=== PATIENT | male | born 1950 | race Caucasian/White ===

== ENCOUNTER 2016-05-15 01:32 | Emergency (ER) | payer MEDICARE, OTHER ==
[~2016-05-15 01:32] MED LIST: ALLO100T PO; AMLO10TA2 PO; ASPI81TA85 PO; ATOR1TAB18 PO; ATRO1SOL13; AZEL0.1S3; BACI50OI TOP; BENA25CA2 PO; BUDE0.5S6 INH; BUPR150T3 PO; BUPR15TASR PO; CENTTAB PO; CETI10TA PO; FENO1CAP2 PO; FLOM5CAP PO; FOLI1TAB2 PO; FURO20TA2 PO; FURO40TA2 PO; FURO40VL IV; INSUDET SC; INSUH10VL SC; INSUHUMDS SC; INSULADS SC; INSULANT SC; IPRA1SOL47 NEB; IPRASOL4 INH; LASI40TA PO; LEVO75TA4 PO; LOSA100T36 PO; LOVE1INJ SC; MAGN400T2 PO; METF1000 PO; METO10TA2 PO; METO25TAB PO; METO50TA2 PO; NITR4TASL SL; OMEG100011 PO; ONDA4TAB6 PO; PANT40TA2 PO; PERF20NE2 INH; PULM0.5S INH; SENN1TAB2 PO; SYMB16INH INH; VITA100066 PO; ZOFR4TAB3 PO
[2016-05-15] MEDS ORDERED: CIPROFLOXACIN 500 MG TAB As Ordered ONE (02:57)
--- NOTE | 2016-05-15 03:46 | EDDOCDS ---
Nurse's Notes [facility] Name: Talha Major Age: 66 yrs Sex: Male : 1950 Arrival Date: 05/15/2016 Time: 01:32 Bed 12 Private MD: Diagnosis: Urinary tract infection, site not specified;Cystitis, unspecified Presentation: 05/15 01:35 Presenting complaint: Child states: Patient hasn't put anything out in catheter in over jmb 6 hours with feeling of needing to urinate. Peg tube also looks infected. Adult Sepsis Screening: The patient does not have new or worsening altered mentation. Patient's respiratory rate is less than 22. Systolic blood pressure is greater than 100. Patient has a qSOFA score of 0- Negative Sepsis Screen. Suicide/Homicide risk assessment- the patient denies having any suicidal and/or homicidal ideations and does not present with any other emotional, behavioral or mental health complaints. Status: Patient is not a sales and service representative or dependent. Transition of care: patient was not received from another setting of care. 01:35 Acuity: ZOILA Level 3 b 01:35 Method Of Arrival: Wheelchair [facility] Triage Assessment: 01:37 General: Appears in no apparent distress, Behavior is appropriate for age, cooperative. jmb Pain: Denies pain. Neurological: Level of Consciousness is awake, alert, obeys commands, Oriented to person, place, time. Respiratory: Airway is patent Respiratory effort is even, Respiratory pattern is regular. Derm: Skin is pink, warm & dry. Musculoskeletal: Range of motion intact in all extremities. Historical: - Allergies: Niacinflush, itching, burning; - Home Meds: 1. allopurinol 100 mg Oral tab 1 tab 2 times per day 2. amlodipine 10 mg Oral tab 1 tab once daily 3. aspirin 81 mg Oral TbEC 1 tab once daily 4. atorvastatin 80 mg oral tab 1 tab once daily 5. Benadryl 25 mg Oral cap as needed 6. bupropion HCl 150 mg Oral TbER 1 tab once daily 7. cetirizine 10 mg oral tab 1 tab once daily 8. Dulcolax (bisacodyl) 5 mg Oral TbEC 1 tab as needed 9. cholecalciferol 1000 units twice a day 10. fenofibrate 135mg oral tab once daily 11. folic acid 1 mg Oral tab 1 tab once daily 12. furosemide 40 mg Oral tab 20 mg once daily 13. Lantus 100 unit/mL Sub-Q soln 20 unit twice a day morning and night 14. levothyroxine 75 mcg Oral tab once daily 15. magnesium oxide 400 mg Oral tab 400 mg daily 16. metformin 1,000 mg Oral tab 1 tab 2 times per day 17. metoclopramide HCl 10 mg Oral tab 1 tab 4 times per day 18. metoprolol tartrate 25 mg Oral tab 1 tab 2 times per day 19. nitroglycerin 0.4 mg SL subl 1 tab every 5 minutes spray 20. Novolog 100 unit/mL Sub-Q soln sliding scale before meals 21. omega-3 fatty acids 1,000 mg oral cap daily 22. ondansetron HCl 4 mg Oral tab as needed 23. tamsulosin 0.4 mg oral cp24 1 cap once daily - PMHx: ALS; CHF; diabetes - IDDM; Hypercholesterolemia; hyperlipidemia; Hypertension; Hypothyroidism; neuropathy; - PSHx: Cardiac stents; CABG; Intestinal obstruction; Appendectomy; 3-cysts removed; Hernia repair; PEG Tube Insertion; - Social history: Smoking status: Patient states former smoker of tobacco. No barriers to communication noted, The patient speaks fluent [place], Speaks appropriately for age. - Family history: Not pertinent. - : The pt / caregiver states he / she is not on anticoagulants. Home medication list is obtained from the patient. - Exposure Risk Screening:: None identified. Screenin:02 Screening information is obtained from the patient. Fall risk: No risks identified. kas2 Assistance ADL's: requires no assistance with activities of daily living. Abuse/DV Screen: The patient / caregiver reports he/she is: not in a situation that causes fear, pain or injury. Nutritional screening: No deficits noted. Advance Directives: Currently, there is no health care proxy. There is no active DNR order. There is no living will. There is no Power of Record Searcher. home support is adequate. Assessment: 01:55 General: Appears in no apparent distress, comfortable, well nourished, well groomed, kas2 Behavior is appropriate for age, cooperative. Pain: Denies pain. Neurological: Level of Consciousness is awake, alert, Oriented to person, place, time. Cardiovascular: Capillary refill < 3 seconds Heart tones S1 S2 present. Respiratory: Airway is patent Respiratory effort is even, unlabored, Respiratory pattern is regular, symmetrical, Breath sounds are clear bilaterally. GI: Abdomen is flat, non- distended Bowel sounds present X 4 quads. : Carter in place Reports urgency. Derm: Skin is intact, is healthy with good turgor, Skin is dry, Skin is pink, warm & dry. Skin temperature is warm. 02:18 General: Crater catheter flushed with 100ml of NS. Good return of clear yellow urine. kas2 Patient tolerated procedure well. . 03:27 General: Patient sitting in bed with daughter at bedside. No apparent distress noted. kas2 Appears comfortable. Denies pain or discomfort at this time. Call ardon within reach. Will continue to monitor.. Vital Signs: 01:37 Weight 66.22 kg (R); Height 5 ft. 8 in. (172.72 cm) (R); Pain 0/10; b 02:00 BP 129 / 73 (auto/); kas2 02:01 Pulse Ox 96% ; [facility] 02:01 BP 132 / 75; Pulse 82; Resp 18; Temp 97.6(O); Pulse Ox 99% on BiPAP; Pain 0/10; kas2 01:37 Body Mass Index 22.20 (66.22 kg, 172.72 cm) [facility] Vitals: 01:37 Log In Time: May 15, 2016 at 01:33. [facility] ED Course: 01:33 Patient visited by Gunjan Zapata Reg. hs2 01:33 Patient moved to Waiting hs2 01:36 Triage Initiated [facility] 01:39 Carlito Chaudhry RN is Primary Nurse. b 01:39 Viridiana Grier RN is Primary Nurse. [facility] 01:39 Patient moved to 12 [facility] 01:43 Terrell Menchaca DO is Attending Physician. cs11 01:43 Patient visited by Terrell Menchaca DO. cs11 02:03 Patient visited by Viridiana Grier RN. kas2 02:18 Patient visited by Viridiana Grier RN. kas2 02:18 Urine Culture Sent. kas2 02:18 Urinalysis Sent. kas2 02:19 Urine collected. Specimen obtained from Carter. kas2 02:20 Patient visited by Viridiana Grier RN. kas2 02:25 Primary Nurse role handed off by Carlito Chaudhry RN [facility] [place] 02:54 Patient visited by Viridiana Grier RN. kas2 03:28 Patient visited by Viridiana Grier RN. kas2 03:45 The patient / caregiver is instructed regarding the plan of care and ED course. kas2 03:45 No IV's were initiated during this patient's visit. No procedures done that require [facility] assistance. Administered Medications: 02:59 Drug: Ciprofloxacin 500 mg [ciprofloxacin 500 mg tablet (1 tabs)] Route: PO; kas2 Order Results: Lab Order: Urinalysis; SPEC'M 05/15/16 02:17 Test: APPEARANCE, URINE; Value: CLOUDY; Range: CLEAR; Abnormal: Above high normal; Status: F Test: COLOR, URINE; Value: YELLOW; Range: YELLOW; Status: F Test: PH,URINE; Value: 6.0; Range: 5.0-9.0; Units: UNITS; Status: F Test: SPECIFIC GRAVITY URINE AUTO; Value: 1.020; Range: 1.002-1.035; Status: F Test: PROTEIN, URINE AUTO; Value: 2+; Range: NEGATIVE; Abnormal: Above high normal; Units: mg/dL; Status: F Test: GLUCOSE, URINE (UA) AUTO; Value: NEGATIVE; Range: NEGATIVE; Units: mg/dL; Status: F Test: KETONE, URINE AUTO; Value: NEGATIVE; Range: NEGATIVE; Units: mg/dL; Status: F Test: UROBILINOGEN, URINE AUTO; Value: 0.2; Range: 0.0-2.0; Units: mg/dL; Status: F Test: BILIRUBIN, URINE AUTO; Value: NEGATIVE; Range: NEGATIVE; Status: F Test: NITRITE, URINE AUTO; Value: POSITIVE; Range: NEGATIVE; Status: F Test: LEUKOCYTE ESTERASE, URINE AUTO; Value: 3+; Range: NEGATIVE; Abnormal: Above high normal; Status: F Test: BLOOD, URINE BLOOD; Value: 3+; Range: NEGATIVE; Abnormal: Above high normal; Status: F Test: WBC, URINE AUTO; Value: 131; Range: 0-3; Abnormal: Above high normal; Units: /HPF; Status: F Test: RBC, URINE AUTO; Value: TNTC; Range: 0-3; Abnormal: Above high normal; Units: /HPF; Status: F Test: BACTERIA, URINE AUTO; Value: 1+; Range: NEGATIVE; Abnormal: Above high normal; Status: F Test: SQUAMOUS EPITHELIAL CELL UR AU; Value: 0; Range: 0-6; Units: /HPF; Status: F Test: MUCUS, URINE; Value: SMALL; Range: NEGATIVE; Status: F Test: HYALINE CAST, URINE AUTO; Value: 0; Range: 0-1; Units: /LPF; Status: F Test: AMORPHOUS SEDIMENT; Value: SMALL; Range: NEGATIVE; Abnormal: Above high normal; Status: F Outcome: 03:28 Discharge ordered by Provider. 11 03:44 Discharge Assessment: patient administered narcotics - no. The following High Risk [facility] Discharge criteria are identified: None. Discharged to home via wheelchair, with family. Condition: good Condition: stable Condition: improved. No special radiology studies were completed. Property :Personal belongings accompany Pt. 03:45 Patient left the ED. [facility] Signatures: Alecia Morgan RN RN [id number] Terrell Menchaca DO DO cs11 Emilio Lisa RN RN jmb Stanton, Hillary, Reg Reg hs2 Viridiana Grier RN RN kas2 MTDD
--- NOTE | 2016-05-15 03:46 | EDDOCDS ---
Physician Documentation [facility] Name: Talha Major Age: 66 yrs Sex: Male : 1950 Arrival Date: 05/15/2016 Time: 01:32 Bed 12 Private MD: Disposition: 05/15/16 03:28 Discharged to Home/Self Care. Impression: Urinary tract infection, site not specified, Cystitis, unspecified. - Condition is Stable. - Prescriptions for Cipro 500 mg Oral Tablet - take 1 tablet by ORAL route every 12 hours; 10 tablet. - Medication Reconciliation, Local Pharmacy Hours form. - Follow up: Private Physician; When: 1 - 2 days; Reason: Recheck today's complaints, Continuance of care. - Problem is new. - Symptoms have improved. Historical: - Allergies: Niacinflush, itching, burning; - Home Meds: 1. allopurinol 100 mg Oral tab 1 tab 2 times per day 2. amlodipine 10 mg Oral tab 1 tab once daily 3. aspirin 81 mg Oral TbEC 1 tab once daily 4. atorvastatin 80 mg oral tab 1 tab once daily 5. Benadryl 25 mg Oral cap as needed 6. bupropion HCl 150 mg Oral TbER 1 tab once daily 7. cetirizine 10 mg oral tab 1 tab once daily 8. Dulcolax (bisacodyl) 5 mg Oral TbEC 1 tab as needed 9. cholecalciferol 1000 units twice a day 10. fenofibrate 135mg oral tab once daily 11. folic acid 1 mg Oral tab 1 tab once daily 12. furosemide 40 mg Oral tab 20 mg once daily 13. Lantus 100 unit/mL Sub-Q soln 20 unit twice a day morning and night 14. levothyroxine 75 mcg Oral tab once daily 15. magnesium oxide 400 mg Oral tab 400 mg daily 16. metformin 1,000 mg Oral tab 1 tab 2 times per day 17. metoclopramide HCl 10 mg Oral tab 1 tab 4 times per day 18. metoprolol tartrate 25 mg Oral tab 1 tab 2 times per day 19. nitroglycerin 0.4 mg SL subl 1 tab every 5 minutes spray 20. Novolog 100 unit/mL Sub-Q soln sliding scale before meals 21. omega-3 fatty acids 1,000 mg oral cap daily 22. ondansetron HCl 4 mg Oral tab as needed 23. tamsulosin 0.4 mg oral cp24 1 cap once daily - PMHx: ALS; CHF; diabetes - IDDM; Hypercholesterolemia; hyperlipidemia; Hypertension; Hypothyroidism; neuropathy; - PSHx: Cardiac stents; CABG; Intestinal obstruction; Appendectomy; 3-cysts removed; Hernia repair; PEG Tube Insertion; - Social history: Smoking status: Patient states former smoker of tobacco. No barriers to communication noted, The patient speaks fluent [place], Speaks appropriately for age. - Family history: Not pertinent. - : The pt / caregiver states he / she is not on anticoagulants. Home medication list is obtained from the patient. - Exposure Risk Screening:: None identified. Vital Signs: 05/15 01:37 Weight 66.22 kg / 145.99 lbs (R); Height 5 ft. 8 in. (172.72 cm) (R); Pain 0/10; b 02:00 BP 129 / 73 (auto/); kas2 02:01 Pulse Ox 96% ; kas2 02:01 BP 132 / 75; Pulse 82; Resp 18; Temp 97.6(O); Pulse Ox 99% on BiPAP; Pain 0/10; kas2 01:37 Body Mass Index 22.20 (66.22 kg, 172.72 cm) [facility] MDM: 01:54 Misc. Nursing Order ordered. cs11 01:55 Urinalysis Ordered. EDMS 01:55 Urine Culture Ordered. EDMS 02:50 Urinalysis Reviewed. cs11 02:50 Ciprofloxacin 500 mg PO once ordered. cs11 03:03 Financial registration complete. pm4 Administered Medications: 02:59 Drug: Ciprofloxacin 500 mg [ciprofloxacin 500 mg tablet (1 tabs)] Route: PO; [facility] Signatures: Dispatcher [employer] EDMS Terrell Menchaca DO DO cs11 Emilio Lisa RN RN Viridiana Barnett RN RN kas2 Atif Mantilla, Reg Reg pm4 MTDD
--- NOTE | 2016-05-17 04:46 | EDDOCDS ---
Physician Documentation [facility] Name: Talha Major Age: 66 yrs Sex: Male : 1950 Arrival Date: 05/15/2016 Time: 01:32 Bed 12 Private MD: Disposition: 05/15/16 03:28 Discharged to Home/Self Care. Impression: Urinary tract infection, site not specified, Cystitis, unspecified. - Condition is Stable. - Prescriptions for Cipro 500 mg Oral Tablet - take 1 tablet by ORAL route every 12 hours; 10 tablet. - Medication Reconciliation, Local Pharmacy Hours form. - Follow up: Private Physician; When: 1 - 2 days; Reason: Recheck today's complaints, Continuance of care. - Problem is new. - Symptoms have improved. Historical: - Allergies: Niacinflush, itching, burning; - Home Meds: 1. allopurinol 100 mg Oral tab 1 tab 2 times per day 2. amlodipine 10 mg Oral tab 1 tab once daily 3. aspirin 81 mg Oral TbEC 1 tab once daily 4. atorvastatin 80 mg oral tab 1 tab once daily 5. Benadryl 25 mg Oral cap as needed 6. bupropion HCl 150 mg Oral TbER 1 tab once daily 7. cetirizine 10 mg oral tab 1 tab once daily 8. Dulcolax (bisacodyl) 5 mg Oral TbEC 1 tab as needed 9. cholecalciferol 1000 units twice a day 10. fenofibrate 135mg oral tab once daily 11. folic acid 1 mg Oral tab 1 tab once daily 12. furosemide 40 mg Oral tab 20 mg once daily 13. Lantus 100 unit/mL Sub-Q soln 20 unit twice a day morning and night 14. levothyroxine 75 mcg Oral tab once daily 15. magnesium oxide 400 mg Oral tab 400 mg daily 16. metformin 1,000 mg Oral tab 1 tab 2 times per day 17. metoclopramide HCl 10 mg Oral tab 1 tab 4 times per day 18. metoprolol tartrate 25 mg Oral tab 1 tab 2 times per day 19. nitroglycerin 0.4 mg SL subl 1 tab every 5 minutes spray 20. Novolog 100 unit/mL Sub-Q soln sliding scale before meals 21. omega-3 fatty acids 1,000 mg oral cap daily 22. ondansetron HCl 4 mg Oral tab as needed 23. tamsulosin 0.4 mg oral cp24 1 cap once daily - PMHx: ALS; CHF; diabetes - IDDM; Hypercholesterolemia; hyperlipidemia; Hypertension; Hypothyroidism; neuropathy; - PSHx: Cardiac stents; CABG; Intestinal obstruction; Appendectomy; 3-cysts removed; Hernia repair; PEG Tube Insertion; - Social history: Smoking status: Patient states former smoker of tobacco. No barriers to communication noted, The patient speaks fluent Ugand[place], Speaks appropriately for age. - Family history: Not pertinent. - : The pt / caregiver states he / she is not on anticoagulants. Home medication list is obtained from the patient. - Exposure Risk Screening:: None identified. Vital Signs: 05/15 01:37 Weight 66.22 kg / 145.99 lbs (R); Height 5 ft. 8 in. (172.72 cm) (R); Pain 0/10; jmb 02:00 BP 129 / 73 (auto/); kas2 02:01 Pulse Ox 96% ; kas2 02:01 BP 132 / 75; Pulse 82; Resp 18; Temp 97.6(O); Pulse Ox 99% on BiPAP; Pain 0/10; kas2 01:37 Body Mass Index 22.20 (66.22 kg, 172.72 cm) [facility] MDM: 01:54 Misc. Nursing Order ordered. cs11 01:55 Urinalysis Ordered. EDMS 01:55 Urine Culture Ordered. EDMS 02:50 Urinalysis Reviewed. cs11 02:50 Ciprofloxacin 500 mg PO once ordered. cs11 03:03 Financial registration complete. pm4 03:57 [facility] Payment Agreement was scanned into [employer] and attached to record. pm4 07:42 T-Sheet-- Draft Copy was scanned into [employer] and attached to record. [facility] Administered Medications: 02:59 Drug: Ciprofloxacin 500 mg [ciprofloxacin 500 mg tablet (1 tabs)] Route: PO; kas2 Signatures: Dispatcher [employer] Terrell Jacobs DO DO cs11 Emilio Lisa RN RN jmb Smith, Kim, RN RN kas2 Samanta Reynolds Paul, Reg Reg pm4 The chart was reviewed and I authenticate all verbal orders and agree with the evaluation and treatment provided.Attachments: 03:57 [facility] Payment Agreement pm4 07:42 T-Sheet-- Draft Copy seh Chart Complete MTDD
--- NOTE | 2016-05-17 04:46 | EDDOCDS ---
Nurse's Notes [facility] Name: Talha Major Age: 66 yrs Sex: Male : 1950 Arrival Date: 05/15/2016 Time: 01:32 Bed 12 Private MD: Diagnosis: Urinary tract infection, site not specified;Cystitis, unspecified Presentation: 05/15 01:35 Presenting complaint: Child states: Patient hasn't put anything out in catheter in over jmb 6 hours with feeling of needing to urinate. Peg tube also looks infected. Adult Sepsis Screening: The patient does not have new or worsening altered mentation. Patient's respiratory rate is less than 22. Systolic blood pressure is greater than 100. Patient has a qSOFA score of 0- Negative Sepsis Screen. Suicide/Homicide risk assessment- the patient denies having any suicidal and/or homicidal ideations and does not present with any other emotional, behavioral or mental health complaints. Status: Patient is not a services tech or dependent. Transition of care: patient was not received from another setting of care. 01:35 Acuity: ZOILA Level 3 b 01:35 Method Of Arrival: Wheelchair [facility] Triage Assessment: 01:37 General: Appears in no apparent distress, Behavior is appropriate for age, cooperative. jmb Pain: Denies pain. Neurological: Level of Consciousness is awake, alert, obeys commands, Oriented to person, place, time. Respiratory: Airway is patent Respiratory effort is even, Respiratory pattern is regular. Derm: Skin is pink, warm & dry. Musculoskeletal: Range of motion intact in all extremities. Historical: - Allergies: Niacinflush, itching, burning; - Home Meds: 1. allopurinol 100 mg Oral tab 1 tab 2 times per day 2. amlodipine 10 mg Oral tab 1 tab once daily 3. aspirin 81 mg Oral TbEC 1 tab once daily 4. atorvastatin 80 mg oral tab 1 tab once daily 5. Benadryl 25 mg Oral cap as needed 6. bupropion HCl 150 mg Oral TbER 1 tab once daily 7. cetirizine 10 mg oral tab 1 tab once daily 8. Dulcolax (bisacodyl) 5 mg Oral TbEC 1 tab as needed 9. cholecalciferol 1000 units twice a day 10. fenofibrate 135mg oral tab once daily 11. folic acid 1 mg Oral tab 1 tab once daily 12. furosemide 40 mg Oral tab 20 mg once daily 13. Lantus 100 unit/mL Sub-Q soln 20 unit twice a day morning and night 14. levothyroxine 75 mcg Oral tab once daily 15. magnesium oxide 400 mg Oral tab 400 mg daily 16. metformin 1,000 mg Oral tab 1 tab 2 times per day 17. metoclopramide HCl 10 mg Oral tab 1 tab 4 times per day 18. metoprolol tartrate 25 mg Oral tab 1 tab 2 times per day 19. nitroglycerin 0.4 mg SL subl 1 tab every 5 minutes spray 20. Novolog 100 unit/mL Sub-Q soln sliding scale before meals 21. omega-3 fatty acids 1,000 mg oral cap daily 22. ondansetron HCl 4 mg Oral tab as needed 23. tamsulosin 0.4 mg oral cp24 1 cap once daily - PMHx: ALS; CHF; diabetes - IDDM; Hypercholesterolemia; hyperlipidemia; Hypertension; Hypothyroidism; neuropathy; - PSHx: Cardiac stents; CABG; Intestinal obstruction; Appendectomy; 3-cysts removed; Hernia repair; PEG Tube Insertion; - Social history: Smoking status: Patient states former smoker of tobacco. No barriers to communication noted, The patient speaks fluent Algerian, Speaks appropriately for age. - Family history: Not pertinent. - : The pt / caregiver states he / she is not on anticoagulants. Home medication list is obtained from the patient. - Exposure Risk Screening:: None identified. Screenin:02 Screening information is obtained from the patient. Fall risk: No risks identified. kas2 Assistance ADL's: requires no assistance with activities of daily living. Abuse/DV Screen: The patient / caregiver reports he/she is: not in a situation that causes fear, pain or injury. Nutritional screening: No deficits noted. Advance Directives: Currently, there is no health care proxy. There is no active DNR order. There is no living will. There is no Power of Java Web User Interface Developer. home support is adequate. Assessment: 01:55 General: Appears in no apparent distress, comfortable, well nourished, well groomed, kas2 Behavior is appropriate for age, cooperative. Pain: Denies pain. Neurological: Level of Consciousness is awake, alert, Oriented to person, place, time. Cardiovascular: Capillary refill < 3 seconds Heart tones S1 S2 present. Respiratory: Airway is patent Respiratory effort is even, unlabored, Respiratory pattern is regular, symmetrical, Breath sounds are clear bilaterally. GI: Abdomen is flat, non- distended Bowel sounds present X 4 quads. : Carter in place Reports urgency. Derm: Skin is intact, is healthy with good turgor, Skin is dry, Skin is pink, warm & dry. Skin temperature is warm. 02:18 General: Carter catheter flushed with 100ml of NS. Good return of clear yellow urine. kas2 Patient tolerated procedure well. . 03:27 General: Patient sitting in bed with daughter at bedside. No apparent distress noted. kas2 Appears comfortable. Denies pain or discomfort at this time. Call ardon within reach. Will continue to monitor.. Vital Signs: 01:37 Weight 66.22 kg (R); Height 5 ft. 8 in. (172.72 cm) (R); Pain 0/10; b 02:00 BP 129 / 73 (auto/); kas2 02:01 Pulse Ox 96% ; [facility] 02:01 BP 132 / 75; Pulse 82; Resp 18; Temp 97.6(O); Pulse Ox 99% on BiPAP; Pain 0/10; kas2 01:37 Body Mass Index 22.20 (66.22 kg, 172.72 cm) [facility] Vitals: 01:37 Log In Time: May 15, 2016 at 01:33. [facility] ED Course: 01:33 Patient visited by Gunjan Zapata Reg. hs2 01:33 Patient moved to Waiting hs2 01:[address] [facility] 01:39 Carlito Chaudhry RN is Primary Nurse. b 01:39 Viridiana Grier RN is Primary Nurse. [facility] 01:39 Patient moved to 12 [facility] 01:43 Terrell Menchaca DO is Attending Physician. cs11 01:43 Patient visited by Terrell Menchaca DO. cs11 02:03 Patient visited by Viridiana Grier RN. kas2 02:18 Patient visited by Viridiana Grier RN. kas2 02:18 Urine Culture Sent. kas2 02:18 Urinalysis Sent. kas2 02:19 Urine collected. Specimen obtained from Carter. kas2 02:20 Patient visited by Viridiana Grier RN. kas2 02:25 Primary Nurse role handed off by Carlito Chaudhry RN kmg1 02:54 Patient visited by Viridiana Grier RN. kas2 03:28 Patient visited by Viridiana Grier RN. kas2 03:45 The patient / caregiver is instructed regarding the plan of care and ED course. kas2 03:45 No IV's were initiated during this patient's visit. No procedures done that require [facility] assistance. 03:57 [facility] Payment Agreement was scanned into [employer] and attached to record. pm4 07:42 T-Sheet-- Draft Copy was scanned into [employer] and attached to record. [facility] Administered Medications: 02:59 Drug: Ciprofloxacin 500 mg [ciprofloxacin 500 mg tablet (1 tabs)] Route: PO; kas2 Order Results: Lab Order: Urinalysis; SPEC'M 05/15/16 02:17 Test: APPEARANCE, URINE; Value: CLOUDY; Range: CLEAR; Abnormal: Above high normal; Status: F Test: COLOR, URINE; Value: YELLOW; Range: YELLOW; Status: F Test: PH,URINE; Value: 6.0; Range: 5.0-9.0; Units: UNITS; Status: F Test: SPECIFIC GRAVITY URINE AUTO; Value: 1.020; Range: 1.002-1.035; Status: F Test: PROTEIN, URINE AUTO; Value: 2+; Range: NEGATIVE; Abnormal: Above high normal; Units: mg/dL; Status: F Test: GLUCOSE, URINE (UA) AUTO; Value: NEGATIVE; Range: NEGATIVE; Units: mg/dL; Status: F Test: KETONE, URINE AUTO; Value: NEGATIVE; Range: NEGATIVE; Units: mg/dL; Status: F Test: UROBILINOGEN, URINE AUTO; Value: 0.2; Range: 0.0-2.0; Units: mg/dL; Status: F Test: BILIRUBIN, URINE AUTO; Value: NEGATIVE; Range: NEGATIVE; Status: F Test: NITRITE, URINE AUTO; Value: POSITIVE; Range: NEGATIVE; Status: F Test: LEUKOCYTE ESTERASE, URINE AUTO; Value: 3+; Range: NEGATIVE; Abnormal: Above high normal; Status: F Test: BLOOD, URINE BLOOD; Value: 3+; Range: NEGATIVE; Abnormal: Above high normal; Status: F Test: WBC, URINE AUTO; Value: 131; Range: 0-3; Abnormal: Above high normal; Units: /HPF; Status: F Test: RBC, URINE AUTO; Value: TNTC; Range: 0-3; Abnormal: Above high normal; Units: /HPF; Status: F Test: BACTERIA, URINE AUTO; Value: 1+; Range: NEGATIVE; Abnormal: Above high normal; Status: F Test: SQUAMOUS EPITHELIAL CELL UR AU; Value: 0; Range: 0-6; Units: /HPF; Status: F Test: MUCUS, URINE; Value: SMALL; Range: NEGATIVE; Status: F Test: HYALINE CAST, URINE AUTO; Value: 0; Range: 0-1; Units: /LPF; Status: F Test: AMORPHOUS SEDIMENT; Value: SMALL; Range: NEGATIVE; Abnormal: Above high normal; Status: F Outcome: 03:28 Discharge ordered by Provider. 11 03:44 Discharge Assessment: patient administered narcotics - no. The following High Risk [facility] Discharge criteria are identified: None. Discharged to home via wheelchair, with family. Condition: good Condition: stable Condition: improved. No special radiology studies were completed. Property :Personal belongings accompany Pt. 03:45 Patient left the ED. [facility] Signatures: Alecia Morgan, RN RN kmg1 Terrell Menchaca, DO DO cs11 Emilio Lisa RN RN Gunjan Daley, Reg Reg hs2 Viridiana Grier RN RN kas2 Samanta Reynolds Paul, Reg Reg pm4 Chart Complete [facility]
--- NOTE | 2016-05-17 04:46 | EDDOCDS ---
Physician Documentation [facility] Name: Talha Major Age: 66 yrs Sex: Male : 1950 Arrival Date: 05/15/2016 Time: 01:32 Bed 12 Private MD: Disposition: 05/15/16 03:28 Discharged to Home/Self Care. Impression: Urinary tract infection, site not specified, Cystitis, unspecified. - Condition is Stable. - Prescriptions for Cipro 500 mg Oral Tablet - take 1 tablet by ORAL route every 12 hours; 10 tablet. - Medication Reconciliation, Local Pharmacy Hours form. - Follow up: Private Physician; When: 1 - 2 days; Reason: Recheck today's complaints, Continuance of care. - Problem is new. - Symptoms have improved. Historical: - Allergies: Niacinflush, itching, burning; - Home Meds: 1. allopurinol 100 mg Oral tab 1 tab 2 times per day 2. amlodipine 10 mg Oral tab 1 tab once daily 3. aspirin 81 mg Oral TbEC 1 tab once daily 4. atorvastatin 80 mg oral tab 1 tab once daily 5. Benadryl 25 mg Oral cap as needed 6. bupropion HCl 150 mg Oral TbER 1 tab once daily 7. cetirizine 10 mg oral tab 1 tab once daily 8. Dulcolax (bisacodyl) 5 mg Oral TbEC 1 tab as needed 9. cholecalciferol 1000 units twice a day 10. fenofibrate 135mg oral tab once daily 11. folic acid 1 mg Oral tab 1 tab once daily 12. furosemide 40 mg Oral tab 20 mg once daily 13. Lantus 100 unit/mL Sub-Q soln 20 unit twice a day morning and night 14. levothyroxine 75 mcg Oral tab once daily 15. magnesium oxide 400 mg Oral tab 400 mg daily 16. metformin 1,000 mg Oral tab 1 tab 2 times per day 17. metoclopramide HCl 10 mg Oral tab 1 tab 4 times per day 18. metoprolol tartrate 25 mg Oral tab 1 tab 2 times per day 19. nitroglycerin 0.4 mg SL subl 1 tab every 5 minutes spray 20. Novolog 100 unit/mL Sub-Q soln sliding scale before meals 21. omega-3 fatty acids 1,000 mg oral cap daily 22. ondansetron HCl 4 mg Oral tab as needed 23. tamsulosin 0.4 mg oral cp24 1 cap once daily - PMHx: ALS; CHF; diabetes - IDDM; Hypercholesterolemia; hyperlipidemia; Hypertension; Hypothyroidism; neuropathy; - PSHx: Cardiac stents; CABG; Intestinal obstruction; Appendectomy; 3-cysts removed; Hernia repair; PEG Tube Insertion; - Social history: Smoking status: Patient states former smoker of tobacco. No barriers to communication noted, The patient speaks fluent [place] Island[place], Speaks appropriately for age. - Family history: Not pertinent. - : The pt / caregiver states he / she is not on anticoagulants. Home medication list is obtained from the patient. - Exposure Risk Screening:: None identified. Vital Signs: 05/15 01:37 Weight 66.22 kg / 145.99 lbs (R); Height 5 ft. 8 in. (172.72 cm) (R); Pain 0/10; jmb 02:00 BP 129 / 73 (auto/); kas2 02:01 Pulse Ox 96% ; kas2 02:01 BP 132 / 75; Pulse 82; Resp 18; Temp 97.6(O); Pulse Ox 99% on BiPAP; Pain 0/10; kas2 01:37 Body Mass Index 22.20 (66.22 kg, 172.72 cm) [facility] MDM: 01:54 Misc. Nursing Order ordered. cs11 01:55 Urinalysis Ordered. EDMS 01:55 Urine Culture Ordered. EDMS 02:50 Urinalysis Reviewed. cs11 02:50 Ciprofloxacin 500 mg PO once ordered. cs11 03:03 Financial registration complete. pm4 03:57 [facility] Payment Agreement was scanned into [employer] and attached to record. pm4 07:42 T-Sheet-- Draft Copy was scanned into [employer] and attached to record. [facility] Administered Medications: 02:59 Drug: Ciprofloxacin 500 mg [ciprofloxacin 500 mg tablet (1 tabs)] Route: PO; kas2 Signatures: Dispatcher [employer] Terrell Jacobs DO DO cs11 Emilio Lisa RN RN jmb Smith, Kim, RN RN kas2 Samanta Reynolds Paul, Reg Reg pm4 The chart was reviewed and I authenticate all verbal orders and agree with the evaluation and treatment provided.Attachments: 03:57 [facility] Payment Agreement pm4 07:42 T-Sheet-- Draft Copy seh Chart Complete MTDD
--- NOTE | 2016-05-19 09:39 | EDDOCDS ---
Physician Documentation [facility] Name: Talha Major Age: 66 yrs Sex: Male : 1950 Arrival Date: 05/15/2016 Time: 01:32 Bed 12 Private MD: Disposition: 05/15/16 03:28 Discharged to Home/Self Care. Impression: Urinary tract infection, site not specified, Cystitis, unspecified. - Condition is Stable. - Prescriptions for Cipro 500 mg Oral Tablet - take 1 tablet by ORAL route every 12 hours; 10 tablet. - Medication Reconciliation, Local Pharmacy Hours form. - Follow up: Private Physician; When: 1 - 2 days; Reason: Recheck today's complaints, Continuance of care. - Problem is new. - Symptoms have improved. Historical: - Allergies: Niacinflush, itching, burning; - Home Meds: 1. allopurinol 100 mg Oral tab 1 tab 2 times per day 2. amlodipine 10 mg Oral tab 1 tab once daily 3. aspirin 81 mg Oral TbEC 1 tab once daily 4. atorvastatin 80 mg oral tab 1 tab once daily 5. Benadryl 25 mg Oral cap as needed 6. bupropion HCl 150 mg Oral TbER 1 tab once daily 7. cetirizine 10 mg oral tab 1 tab once daily 8. Dulcolax (bisacodyl) 5 mg Oral TbEC 1 tab as needed 9. cholecalciferol 1000 units twice a day 10. fenofibrate 135mg oral tab once daily 11. folic acid 1 mg Oral tab 1 tab once daily 12. furosemide 40 mg Oral tab 20 mg once daily 13. Lantus 100 unit/mL Sub-Q soln 20 unit twice a day morning and night 14. levothyroxine 75 mcg Oral tab once daily 15. magnesium oxide 400 mg Oral tab 400 mg daily 16. metformin 1,000 mg Oral tab 1 tab 2 times per day 17. metoclopramide HCl 10 mg Oral tab 1 tab 4 times per day 18. metoprolol tartrate 25 mg Oral tab 1 tab 2 times per day 19. nitroglycerin 0.4 mg SL subl 1 tab every 5 minutes spray 20. Novolog 100 unit/mL Sub-Q soln sliding scale before meals 21. omega-3 fatty acids 1,000 mg oral cap daily 22. ondansetron HCl 4 mg Oral tab as needed 23. tamsulosin 0.4 mg oral cp24 1 cap once daily - PMHx: ALS; CHF; diabetes - IDDM; Hypercholesterolemia; hyperlipidemia; Hypertension; Hypothyroidism; neuropathy; - PSHx: Cardiac stents; CABG; Intestinal obstruction; Appendectomy; 3-cysts removed; Hernia repair; PEG Tube Insertion; - Social history: Smoking status: Patient states former smoker of tobacco. No barriers to communication noted, The patient speaks fluent Romanian, Speaks appropriately for age. - Family history: Not pertinent. - : The pt / caregiver states he / she is not on anticoagulants. Home medication list is obtained from the patient. - Exposure Risk Screening:: None identified. Vital Signs: 05/15 01:37 Weight 66.22 kg / 145.99 lbs (R); Height 5 ft. 8 in. (172.72 cm) (R); Pain 0/10; jmb 02:00 BP 129 / 73 (auto/); kas2 02:01 Pulse Ox 96% ; kas2 02:01 BP 132 / 75; Pulse 82; Resp 18; Temp 97.6(O); Pulse Ox 99% on BiPAP; Pain 0/10; kas2 01:37 Body Mass Index 22.20 (66.22 kg, 172.72 cm) [facility] MDM: 01:54 Misc. Nursing Order ordered. cs11 01:55 Urinalysis Ordered. EDMS 01:55 Urine Culture Ordered. EDMS 02:50 Urinalysis Reviewed. cs11 02:50 Ciprofloxacin 500 mg PO once ordered. cs11 03:03 Financial registration complete. pm4 03:57 [facility] Payment Agreement was scanned into [employer] and attached to record. pm4 07:42 T-Sheet-- Draft Copy was scanned into [employer] and attached to record. [facility] Administered Medications: 02:59 Drug: Ciprofloxacin 500 mg [ciprofloxacin 500 mg tablet (1 tabs)] Route: PO; kas2 Signatures: Dispatcher [employer] Terrell Jacobs DO DO cs11 Emilio Lisa RN RN jmb Smith, Kim, RN RN kas2 Samanta Reynolds Paul, Reg Reg pm4 The chart was reviewed and I authenticate all verbal orders and agree with the evaluation and treatment provided.Attachments: 03:57 [facility] Payment Agreement pm4 07:42 T-Sheet-- Draft Copy seh Chart Complete MTDD
--- NOTE | 2016-05-19 09:39 | EDDOCDS ---
Nurse's Notes [facility] Name: Talha Major Age: 66 yrs Sex: Male : 1950 Arrival Date: 05/15/2016 Time: 01:32 Bed 12 Private MD: Diagnosis: Urinary tract infection, site not specified;Cystitis, unspecified Presentation: 05/15 01:35 Presenting complaint: Child states: Patient hasn't put anything out in catheter in over jmb 6 hours with feeling of needing to urinate. Peg tube also looks infected. Adult Sepsis Screening: The patient does not have new or worsening altered mentation. Patient's respiratory rate is less than 22. Systolic blood pressure is greater than 100. Patient has a qSOFA score of 0- Negative Sepsis Screen. Suicide/Homicide risk assessment- the patient denies having any suicidal and/or homicidal ideations and does not present with any other emotional, behavioral or mental health complaints. Status: Patient is not a financial services intern or dependent. Transition of care: patient was not received from another setting of care. 01:35 Acuity: ZOILA Level 3 b 01:35 Method Of Arrival: Wheelchair [facility] Triage Assessment: 01:37 General: Appears in no apparent distress, Behavior is appropriate for age, cooperative. jmb Pain: Denies pain. Neurological: Level of Consciousness is awake, alert, obeys commands, Oriented to person, place, time. Respiratory: Airway is patent Respiratory effort is even, Respiratory pattern is regular. Derm: Skin is pink, warm & dry. Musculoskeletal: Range of motion intact in all extremities. Historical: - Allergies: Niacinflush, itching, burning; - Home Meds: 1. allopurinol 100 mg Oral tab 1 tab 2 times per day 2. amlodipine 10 mg Oral tab 1 tab once daily 3. aspirin 81 mg Oral TbEC 1 tab once daily 4. atorvastatin 80 mg oral tab 1 tab once daily 5. Benadryl 25 mg Oral cap as needed 6. bupropion HCl 150 mg Oral TbER 1 tab once daily 7. cetirizine 10 mg oral tab 1 tab once daily 8. Dulcolax (bisacodyl) 5 mg Oral TbEC 1 tab as needed 9. cholecalciferol 1000 units twice a day 10. fenofibrate 135mg oral tab once daily 11. folic acid 1 mg Oral tab 1 tab once daily 12. furosemide 40 mg Oral tab 20 mg once daily 13. Lantus 100 unit/mL Sub-Q soln 20 unit twice a day morning and night 14. levothyroxine 75 mcg Oral tab once daily 15. magnesium oxide 400 mg Oral tab 400 mg daily 16. metformin 1,000 mg Oral tab 1 tab 2 times per day 17. metoclopramide HCl 10 mg Oral tab 1 tab 4 times per day 18. metoprolol tartrate 25 mg Oral tab 1 tab 2 times per day 19. nitroglycerin 0.4 mg SL subl 1 tab every 5 minutes spray 20. Novolog 100 unit/mL Sub-Q soln sliding scale before meals 21. omega-3 fatty acids 1,000 mg oral cap daily 22. ondansetron HCl 4 mg Oral tab as needed 23. tamsulosin 0.4 mg oral cp24 1 cap once daily - PMHx: ALS; CHF; diabetes - IDDM; Hypercholesterolemia; hyperlipidemia; Hypertension; Hypothyroidism; neuropathy; - PSHx: Cardiac stents; CABG; Intestinal obstruction; Appendectomy; 3-cysts removed; Hernia repair; PEG Tube Insertion; - Social history: Smoking status: Patient states former smoker of tobacco. No barriers to communication noted, The patient speaks fluent Cambodian, Speaks appropriately for age. - Family history: Not pertinent. - : The pt / caregiver states he / she is not on anticoagulants. Home medication list is obtained from the patient. - Exposure Risk Screening:: None identified. Screenin:02 Screening information is obtained from the patient. Fall risk: No risks identified. kas2 Assistance ADL's: requires no assistance with activities of daily living. Abuse/DV Screen: The patient / caregiver reports he/she is: not in a situation that causes fear, pain or injury. Nutritional screening: No deficits noted. Advance Directives: Currently, there is no health care proxy. There is no active DNR order. There is no living will. There is no Power of Salesperson Driver. home support is adequate. Assessment: 01:55 General: Appears in no apparent distress, comfortable, well nourished, well groomed, kas2 Behavior is appropriate for age, cooperative. Pain: Denies pain. Neurological: Level of Consciousness is awake, alert, Oriented to person, place, time. Cardiovascular: Capillary refill < 3 seconds Heart tones S1 S2 present. Respiratory: Airway is patent Respiratory effort is even, unlabored, Respiratory pattern is regular, symmetrical, Breath sounds are clear bilaterally. GI: Abdomen is flat, non- distended Bowel sounds present X 4 quads. : Carter in place Reports urgency. Derm: Skin is intact, is healthy with good turgor, Skin is dry, Skin is pink, warm & dry. Skin temperature is warm. 02:18 General: Carter catheter flushed with 100ml of NS. Good return of clear yellow urine. kas2 Patient tolerated procedure well. . 03:27 General: Patient sitting in bed with daughter at bedside. No apparent distress noted. kas2 Appears comfortable. Denies pain or discomfort at this time. Call ardon within reach. Will continue to monitor.. Vital Signs: 01:37 Weight 66.22 kg (R); Height 5 ft. 8 in. (172.72 cm) (R); Pain 0/10; b 02:00 BP 129 / 73 (auto/); kas2 02:01 Pulse Ox 96% ; [facility] 02:01 BP 132 / 75; Pulse 82; Resp 18; Temp 97.6(O); Pulse Ox 99% on BiPAP; Pain 0/10; kas2 01:37 Body Mass Index 22.20 (66.22 kg, 172.72 cm) [facility] Vitals: 01:37 Log In Time: May 15, 2016 at 01:33. [facility] ED Course: 01:33 Patient visited by Gunjan Zapata Reg. hs2 01:33 Patient moved to Waiting hs2 01:36 Triage Initiated [facility] 01:39 Carlito Chaudhry RN is Primary Nurse. b 01:39 Viridiana Grier RN is Primary Nurse. [facility] 01:39 Patient moved to 12 [facility] 01:43 Terrell Menchaca DO is Attending Physician. cs11 01:43 Patient visited by Terrell Menchaca DO. cs11 02:03 Patient visited by Viridiana Grier RN. kas2 02:18 Patient visited by Viridiana Grier RN. kas2 02:18 Urine Culture Sent. kas2 02:18 Urinalysis Sent. kas2 02:19 Urine collected. Specimen obtained from Carter. kas2 02:20 Patient visited by Viridiana Grier RN. kas2 02:25 Primary Nurse role handed off by Carlito Chaudhry RN kmg1 02:54 Patient visited by Viridiana Grier RN. kas2 03:28 Patient visited by Viridiana Grier RN. kas2 03:45 The patient / caregiver is instructed regarding the plan of care and ED course. kas2 03:45 No IV's were initiated during this patient's visit. No procedures done that require [facility] assistance. 03:57 [facility] Payment Agreement was scanned into [employer] and attached to record. pm4 07:42 T-Sheet-- Draft Copy was scanned into [employer] and attached to record. [facility] Administered Medications: 02:59 Drug: Ciprofloxacin 500 mg [ciprofloxacin 500 mg tablet (1 tabs)] Route: PO; kas2 Order Results: Lab Order: Urinalysis; SPEC'M 05/15/16 02:17 Test: APPEARANCE, URINE; Value: CLOUDY; Range: CLEAR; Abnormal: Above high normal; Status: F Test: COLOR, URINE; Value: YELLOW; Range: YELLOW; Status: F Test: PH,URINE; Value: 6.0; Range: 5.0-9.0; Units: UNITS; Status: F Test: SPECIFIC GRAVITY URINE AUTO; Value: 1.020; Range: 1.002-1.035; Status: F Test: PROTEIN, URINE AUTO; Value: 2+; Range: NEGATIVE; Abnormal: Above high normal; Units: mg/dL; Status: F Test: GLUCOSE, URINE (UA) AUTO; Value: NEGATIVE; Range: NEGATIVE; Units: mg/dL; Status: F Test: KETONE, URINE AUTO; Value: NEGATIVE; Range: NEGATIVE; Units: mg/dL; Status: F Test: UROBILINOGEN, URINE AUTO; Value: 0.2; Range: 0.0-2.0; Units: mg/dL; Status: F Test: BILIRUBIN, URINE AUTO; Value: NEGATIVE; Range: NEGATIVE; Status: F Test: NITRITE, URINE AUTO; Value: POSITIVE; Range: NEGATIVE; Status: F Test: LEUKOCYTE ESTERASE, URINE AUTO; Value: 3+; Range: NEGATIVE; Abnormal: Above high normal; Status: F Test: BLOOD, URINE BLOOD; Value: 3+; Range: NEGATIVE; Abnormal: Above high normal; Status: F Test: WBC, URINE AUTO; Value: 131; Range: 0-3; Abnormal: Above high normal; Units: /HPF; Status: F Test: RBC, URINE AUTO; Value: TNTC; Range: 0-3; Abnormal: Above high normal; Units: /HPF; Status: F Test: BACTERIA, URINE AUTO; Value: 1+; Range: NEGATIVE; Abnormal: Above high normal; Status: F Test: SQUAMOUS EPITHELIAL CELL UR AU; Value: 0; Range: 0-6; Units: /HPF; Status: F Test: MUCUS, URINE; Value: SMALL; Range: NEGATIVE; Status: F Test: HYALINE CAST, URINE AUTO; Value: 0; Range: 0-1; Units: /LPF; Status: F Test: AMORPHOUS SEDIMENT; Value: SMALL; Range: NEGATIVE; Abnormal: Above high normal; Status: F Lab Order: Urine Culture; SPEC'M 05/15/16 02:17 Test: URINE CULTURE; Value: ORGANISM 1: STAPHYLOCOCCUS EPIDERMIDIS; Status: F Test: URINE CULTURE; Value: STAPHYLOCOCCUS EPIDERMIDIS; Status: F Test: URINE CULTURE; Value: COLONY COUNT CFU/ml 100,000; Status: F Test: URINE CULTURE; Value: GRAM POS SENSI - VITEK 67; Status: F Test: URINE CULTURE; Value: Method: VIT2; Status: F Test: URINE CULTURE; Value: TETRACYCLINE 2 S; Status: F Test: URINE CULTURE; Value: PENICILLIN G >=0.5 R; Status: F Test: URINE CULTURE; Value: TRIMETHOPRIM/SULFAMETHOXAZOLE >=320 R; Status: F Test: URINE CULTURE; Value: ERYTHROMYCIN >=8 R; Status: F Test: URINE CULTURE; Value: GENTAMICIN 8 I; Status: F Test: URINE CULTURE; Value: CLINDAMYCIN >=8 R; Status: F Test: URINE CULTURE; Value: NITROFURANTOIN <=16 S; Status: F Test: URINE CULTURE; Value: OXACILLIN >=4 R; Status: F Test: URINE CULTURE; Value: VANCOMYCIN 1 S; Status: F Test: URINE CULTURE; Value: LINEZOLID (ZYVOX) 2 S; Status: F Outcome: 03:28 Discharge ordered by Provider. [facility] 03:44 Discharge Assessment: patient administered narcotics - no. The following High Risk [facility] Discharge criteria are identified: None. Discharged to home via wheelchair, with family. Condition: good Condition: stable Condition: improved. No special radiology studies were completed. Property :Personal belongings accompany Pt. 03:45 Patient left the ED. [facility] Addendum: 05/19/2016 09:36 Narrative: Urine culture results reviewed by Dr Thompson. Pt contacted and prescription mcp for Doxycycline 100mg po BID x 10 days called into [facility] pharmacy at [employer] per pts request. Pt informed to stop taking cipro. Signatures: Alecia Morgan, RN RN kmg1 Yolanda Martin RN RN Terrell Leahc, DO cs11 Emilio Lisa RN RN josuéb uGnjan Zapata, Reg Reg hs2 Viridiana Grier RN RN kas2 Gail, Atif Leigh, Reg Reg pm4 Chart Complete MTDD
--- NOTE | 2016-05-19 09:39 | EDDOCDS ---
Physician Documentation [facility] Name: Talha Major Age: 66 yrs Sex: Male : 1950 Arrival Date: 05/15/2016 Time: 01:32 Bed 12 Private MD: Disposition: 05/15/16 03:28 Discharged to Home/Self Care. Impression: Urinary tract infection, site not specified, Cystitis, unspecified. - Condition is Stable. - Prescriptions for Cipro 500 mg Oral Tablet - take 1 tablet by ORAL route every 12 hours; 10 tablet. - Medication Reconciliation, Local Pharmacy Hours form. - Follow up: Private Physician; When: 1 - 2 days; Reason: Recheck today's complaints, Continuance of care. - Problem is new. - Symptoms have improved. Historical: - Allergies: Niacinflush, itching, burning; - Home Meds: 1. allopurinol 100 mg Oral tab 1 tab 2 times per day 2. amlodipine 10 mg Oral tab 1 tab once daily 3. aspirin 81 mg Oral TbEC 1 tab once daily 4. atorvastatin 80 mg oral tab 1 tab once daily 5. Benadryl 25 mg Oral cap as needed 6. bupropion HCl 150 mg Oral TbER 1 tab once daily 7. cetirizine 10 mg oral tab 1 tab once daily 8. Dulcolax (bisacodyl) 5 mg Oral TbEC 1 tab as needed 9. cholecalciferol 1000 units twice a day 10. fenofibrate 135mg oral tab once daily 11. folic acid 1 mg Oral tab 1 tab once daily 12. furosemide 40 mg Oral tab 20 mg once daily 13. Lantus 100 unit/mL Sub-Q soln 20 unit twice a day morning and night 14. levothyroxine 75 mcg Oral tab once daily 15. magnesium oxide 400 mg Oral tab 400 mg daily 16. metformin 1,000 mg Oral tab 1 tab 2 times per day 17. metoclopramide HCl 10 mg Oral tab 1 tab 4 times per day 18. metoprolol tartrate 25 mg Oral tab 1 tab 2 times per day 19. nitroglycerin 0.4 mg SL subl 1 tab every 5 minutes spray 20. Novolog 100 unit/mL Sub-Q soln sliding scale before meals 21. omega-3 fatty acids 1,000 mg oral cap daily 22. ondansetron HCl 4 mg Oral tab as needed 23. tamsulosin 0.4 mg oral cp24 1 cap once daily - PMHx: ALS; CHF; diabetes - IDDM; Hypercholesterolemia; hyperlipidemia; Hypertension; Hypothyroidism; neuropathy; - PSHx: Cardiac stents; CABG; Intestinal obstruction; Appendectomy; 3-cysts removed; Hernia repair; PEG Tube Insertion; - Social history: Smoking status: Patient states former smoker of tobacco. No barriers to communication noted, The patient speaks fluent North Korean, Speaks appropriately for age. - Family history: Not pertinent. - : The pt / caregiver states he / she is not on anticoagulants. Home medication list is obtained from the patient. - Exposure Risk Screening:: None identified. Vital Signs: 05/15 01:37 Weight 66.22 kg / 145.99 lbs (R); Height 5 ft. 8 in. (172.72 cm) (R); Pain 0/10; jmb 02:00 BP 129 / 73 (auto/); kas2 02:01 Pulse Ox 96% ; kas2 02:01 BP 132 / 75; Pulse 82; Resp 18; Temp 97.6(O); Pulse Ox 99% on BiPAP; Pain 0/10; kas2 01:37 Body Mass Index 22.20 (66.22 kg, 172.72 cm) [facility] MDM: 01:54 Misc. Nursing Order ordered. cs11 01:55 Urinalysis Ordered. EDMS 01:55 Urine Culture Ordered. EDMS 02:50 Urinalysis Reviewed. cs11 02:50 Ciprofloxacin 500 mg PO once ordered. cs11 03:03 Financial registration complete. pm4 03:57 [facility] Payment Agreement was scanned into [employer] and attached to record. pm4 07:42 T-Sheet-- Draft Copy was scanned into [employer] and attached to record. [facility] Administered Medications: 02:59 Drug: Ciprofloxacin 500 mg [ciprofloxacin 500 mg tablet (1 tabs)] Route: PO; kas2 Signatures: Dispatcher [employer] Terrell Jacobs DO DO cs11 Emilio Lisa RN RN jmb Smith, Kim, RN RN kas2 Samanta Reynolds Paul, Reg Reg pm4 The chart was reviewed and I authenticate all verbal orders and agree with the evaluation and treatment provided.Attachments: 03:57 [facility] Payment Agreement pm4 07:42 T-Sheet-- Draft Copy seh MTDD
--- NOTE | 2016-05-19 09:39 | EDDOCDS ---
Physician Documentation [facility] Name: Talha Major Age: 66 yrs Sex: Male : 1950 Arrival Date: 05/15/2016 Time: 01:32 Bed 12 Private MD: Disposition: 05/15/16 03:28 Discharged to Home/Self Care. Impression: Urinary tract infection, site not specified, Cystitis, unspecified. - Condition is Stable. - Prescriptions for Cipro 500 mg Oral Tablet - take 1 tablet by ORAL route every 12 hours; 10 tablet. - Medication Reconciliation, Local Pharmacy Hours form. - Follow up: Private Physician; When: 1 - 2 days; Reason: Recheck today's complaints, Continuance of care. - Problem is new. - Symptoms have improved. Historical: - Allergies: Niacinflush, itching, burning; - Home Meds: 1. allopurinol 100 mg Oral tab 1 tab 2 times per day 2. amlodipine 10 mg Oral tab 1 tab once daily 3. aspirin 81 mg Oral TbEC 1 tab once daily 4. atorvastatin 80 mg oral tab 1 tab once daily 5. Benadryl 25 mg Oral cap as needed 6. bupropion HCl 150 mg Oral TbER 1 tab once daily 7. cetirizine 10 mg oral tab 1 tab once daily 8. Dulcolax (bisacodyl) 5 mg Oral TbEC 1 tab as needed 9. cholecalciferol 1000 units twice a day 10. fenofibrate 135mg oral tab once daily 11. folic acid 1 mg Oral tab 1 tab once daily 12. furosemide 40 mg Oral tab 20 mg once daily 13. Lantus 100 unit/mL Sub-Q soln 20 unit twice a day morning and night 14. levothyroxine 75 mcg Oral tab once daily 15. magnesium oxide 400 mg Oral tab 400 mg daily 16. metformin 1,000 mg Oral tab 1 tab 2 times per day 17. metoclopramide HCl 10 mg Oral tab 1 tab 4 times per day 18. metoprolol tartrate 25 mg Oral tab 1 tab 2 times per day 19. nitroglycerin 0.4 mg SL subl 1 tab every 5 minutes spray 20. Novolog 100 unit/mL Sub-Q soln sliding scale before meals 21. omega-3 fatty acids 1,000 mg oral cap daily 22. ondansetron HCl 4 mg Oral tab as needed 23. tamsulosin 0.4 mg oral cp24 1 cap once daily - PMHx: ALS; CHF; diabetes - IDDM; Hypercholesterolemia; hyperlipidemia; Hypertension; Hypothyroidism; neuropathy; - PSHx: Cardiac stents; CABG; Intestinal obstruction; Appendectomy; 3-cysts removed; Hernia repair; PEG Tube Insertion; - Social history: Smoking status: Patient states former smoker of tobacco. No barriers to communication noted, The patient speaks fluent Mozambican, Speaks appropriately for age. - Family history: Not pertinent. - : The pt / caregiver states he / she is not on anticoagulants. Home medication list is obtained from the patient. - Exposure Risk Screening:: None identified. Vital Signs: 05/15 01:37 Weight 66.22 kg / 145.99 lbs (R); Height 5 ft. 8 in. (172.72 cm) (R); Pain 0/10; jmb 02:00 BP 129 / 73 (auto/); kas2 02:01 Pulse Ox 96% ; kas2 02:01 BP 132 / 75; Pulse 82; Resp 18; Temp 97.6(O); Pulse Ox 99% on BiPAP; Pain 0/10; kas2 01:37 Body Mass Index 22.20 (66.22 kg, 172.72 cm) [facility] MDM: 01:54 Misc. Nursing Order ordered. cs11 01:55 Urinalysis Ordered. EDMS 01:55 Urine Culture Ordered. EDMS 02:50 Urinalysis Reviewed. cs11 02:50 Ciprofloxacin 500 mg PO once ordered. cs11 03:03 Financial registration complete. pm4 03:57 COUNTS INCLUDE 234 BEDS AT THE [facility] Payment Agreement was scanned into [employer] and attached to record. pm4 07:42 T-Sheet-- Draft Copy was scanned into [employer] and attached to record. [facility] Administered Medications: 02:59 Drug: Ciprofloxacin 500 mg [ciprofloxacin 500 mg tablet (1 tabs)] Route: PO; kas2 Signatures: Dispatcher [employer] Terrell Jacobs DO DO cs11 Emilio Lisa RN RN jmb Smith, Kim, RN RN kas2 Samanta Reynolds Paul, Reg Reg pm4 The chart was reviewed and I authenticate all verbal orders and agree with the evaluation and treatment provided.Attachments: 03:57 COUNTS INCLUDE 234 BEDS AT THE [facility] Payment Agreement pm4 07:42 T-Sheet-- Draft Copy seh MTDD
--- NOTE | 2016-05-19 09:39 | EDDOCDS ---
Nurse's Notes [facility] Name: Talha Major Age: 66 yrs Sex: Male : 1950 Arrival Date: 05/15/2016 Time: 01:32 Bed 12 Private MD: Diagnosis: Urinary tract infection, site not specified;Cystitis, unspecified Presentation: 05/15 01:35 Presenting complaint: Child states: Patient hasn't put anything out in catheter in over jmb 6 hours with feeling of needing to urinate. Peg tube also looks infected. Adult Sepsis Screening: The patient does not have new or worsening altered mentation. Patient's respiratory rate is less than 22. Systolic blood pressure is greater than 100. Patient has a qSOFA score of 0- Negative Sepsis Screen. Suicide/Homicide risk assessment- the patient denies having any suicidal and/or homicidal ideations and does not present with any other emotional, behavioral or mental health complaints. Status: Patient is not a pharmacy service associate or dependent. Transition of care: patient was not received from another setting of care. 01:35 Acuity: ZOILA Level 3 b 01:35 Method Of Arrival: Wheelchair [facility] Triage Assessment: 01:37 General: Appears in no apparent distress, Behavior is appropriate for age, cooperative. jmb Pain: Denies pain. Neurological: Level of Consciousness is awake, alert, obeys commands, Oriented to person, place, time. Respiratory: Airway is patent Respiratory effort is even, Respiratory pattern is regular. Derm: Skin is pink, warm & dry. Musculoskeletal: Range of motion intact in all extremities. Historical: - Allergies: Niacinflush, itching, burning; - Home Meds: 1. allopurinol 100 mg Oral tab 1 tab 2 times per day 2. amlodipine 10 mg Oral tab 1 tab once daily 3. aspirin 81 mg Oral TbEC 1 tab once daily 4. atorvastatin 80 mg oral tab 1 tab once daily 5. Benadryl 25 mg Oral cap as needed 6. bupropion HCl 150 mg Oral TbER 1 tab once daily 7. cetirizine 10 mg oral tab 1 tab once daily 8. Dulcolax (bisacodyl) 5 mg Oral TbEC 1 tab as needed 9. cholecalciferol 1000 units twice a day 10. fenofibrate 135mg oral tab once daily 11. folic acid 1 mg Oral tab 1 tab once daily 12. furosemide 40 mg Oral tab 20 mg once daily 13. Lantus 100 unit/mL Sub-Q soln 20 unit twice a day morning and night 14. levothyroxine 75 mcg Oral tab once daily 15. magnesium oxide 400 mg Oral tab 400 mg daily 16. metformin 1,000 mg Oral tab 1 tab 2 times per day 17. metoclopramide HCl 10 mg Oral tab 1 tab 4 times per day 18. metoprolol tartrate 25 mg Oral tab 1 tab 2 times per day 19. nitroglycerin 0.4 mg SL subl 1 tab every 5 minutes spray 20. Novolog 100 unit/mL Sub-Q soln sliding scale before meals 21. omega-3 fatty acids 1,000 mg oral cap daily 22. ondansetron HCl 4 mg Oral tab as needed 23. tamsulosin 0.4 mg oral cp24 1 cap once daily - PMHx: ALS; CHF; diabetes - IDDM; Hypercholesterolemia; hyperlipidemia; Hypertension; Hypothyroidism; neuropathy; - PSHx: Cardiac stents; CABG; Intestinal obstruction; Appendectomy; 3-cysts removed; Hernia repair; PEG Tube Insertion; - Social history: Smoking status: Patient states former smoker of tobacco. No barriers to communication noted, The patient speaks fluent Turkish, Speaks appropriately for age. - Family history: Not pertinent. - : The pt / caregiver states he / she is not on anticoagulants. Home medication list is obtained from the patient. - Exposure Risk Screening:: None identified. Screenin:02 Screening information is obtained from the patient. Fall risk: No risks identified. kas2 Assistance ADL's: requires no assistance with activities of daily living. Abuse/DV Screen: The patient / caregiver reports he/she is: not in a situation that causes fear, pain or injury. Nutritional screening: No deficits noted. Advance Directives: Currently, there is no health care proxy. There is no active DNR order. There is no living will. There is no Power of Management Manager. home support is adequate. Assessment: 01:55 General: Appears in no apparent distress, comfortable, well nourished, well groomed, kas2 Behavior is appropriate for age, cooperative. Pain: Denies pain. Neurological: Level of Consciousness is awake, alert, Oriented to person, place, time. Cardiovascular: Capillary refill < 3 seconds Heart tones S1 S2 present. Respiratory: Airway is patent Respiratory effort is even, unlabored, Respiratory pattern is regular, symmetrical, Breath sounds are clear bilaterally. GI: Abdomen is flat, non- distended Bowel sounds present X 4 quads. : Carter in place Reports urgency. Derm: Skin is intact, is healthy with good turgor, Skin is dry, Skin is pink, warm & dry. Skin temperature is warm. 02:18 General: Carter catheter flushed with 100ml of NS. Good return of clear yellow urine. kas2 Patient tolerated procedure well. . 03:27 General: Patient sitting in bed with daughter at bedside. No apparent distress noted. kas2 Appears comfortable. Denies pain or discomfort at this time. Call ardon within reach. Will continue to monitor.. Vital Signs: 01:37 Weight 66.22 kg (R); Height 5 ft. 8 in. (172.72 cm) (R); Pain 0/10; b 02:00 BP 129 / 73 (auto/); kas2 02:01 Pulse Ox 96% ; [facility] 02:01 BP 132 / 75; Pulse 82; Resp 18; Temp 97.6(O); Pulse Ox 99% on BiPAP; Pain 0/10; kas2 01:37 Body Mass Index 22.20 (66.22 kg, 172.72 cm) [facility] Vitals: 01:37 Log In Time: May 15, 2016 at 01:33. [facility] ED Course: 01:33 Patient visited by Gunjan Zapata Reg. hs2 01:33 Patient moved to Waiting hs2 01:36 Triage Initiated [facility] 01:39 Carlito Chaudhry RN is Primary Nurse. b 01:39 Viridiana Grier RN is Primary Nurse. [facility] 01:39 Patient moved to 12 [facility] 01:43 Terrell Menchaca DO is Attending Physician. cs11 01:43 Patient visited by Terrell Menchaca DO. cs11 02:03 Patient visited by Viridiana Grier RN. kas2 02:18 Patient visited by Viridiana Grier RN. kas2 02:18 Urine Culture Sent. kas2 02:18 Urinalysis Sent. kas2 02:19 Urine collected. Specimen obtained from Carter. kas2 02:20 Patient visited by Viridiana Grier RN. kas2 02:25 Primary Nurse role handed off by Carlito Chaudhry RN kmg1 02:54 Patient visited by Viridiana Grier RN. kas2 03:28 Patient visited by Viridiana Grier RN. kas2 03:45 The patient / caregiver is instructed regarding the plan of care and ED course. kas2 03:45 No IV's were initiated during this patient's visit. No procedures done that require [facility] assistance. 03:57 [facility] Payment Agreement was scanned into [employer] and attached to record. pm4 07:42 T-Sheet-- Draft Copy was scanned into [employer] and attached to record. [facility] Administered Medications: 02:59 Drug: Ciprofloxacin 500 mg [ciprofloxacin 500 mg tablet (1 tabs)] Route: PO; kas2 Order Results: Lab Order: Urinalysis; SPEC'M 05/15/16 02:17 Test: APPEARANCE, URINE; Value: CLOUDY; Range: CLEAR; Abnormal: Above high normal; Status: F Test: COLOR, URINE; Value: YELLOW; Range: YELLOW; Status: F Test: PH,URINE; Value: 6.0; Range: 5.0-9.0; Units: UNITS; Status: F Test: SPECIFIC GRAVITY URINE AUTO; Value: 1.020; Range: 1.002-1.035; Status: F Test: PROTEIN, URINE AUTO; Value: 2+; Range: NEGATIVE; Abnormal: Above high normal; Units: mg/dL; Status: F Test: GLUCOSE, URINE (UA) AUTO; Value: NEGATIVE; Range: NEGATIVE; Units: mg/dL; Status: F Test: KETONE, URINE AUTO; Value: NEGATIVE; Range: NEGATIVE; Units: mg/dL; Status: F Test: UROBILINOGEN, URINE AUTO; Value: 0.2; Range: 0.0-2.0; Units: mg/dL; Status: F Test: BILIRUBIN, URINE AUTO; Value: NEGATIVE; Range: NEGATIVE; Status: F Test: NITRITE, URINE AUTO; Value: POSITIVE; Range: NEGATIVE; Status: F Test: LEUKOCYTE ESTERASE, URINE AUTO; Value: 3+; Range: NEGATIVE; Abnormal: Above high normal; Status: F Test: BLOOD, URINE BLOOD; Value: 3+; Range: NEGATIVE; Abnormal: Above high normal; Status: F Test: WBC, URINE AUTO; Value: 131; Range: 0-3; Abnormal: Above high normal; Units: /HPF; Status: F Test: RBC, URINE AUTO; Value: TNTC; Range: 0-3; Abnormal: Above high normal; Units: /HPF; Status: F Test: BACTERIA, URINE AUTO; Value: 1+; Range: NEGATIVE; Abnormal: Above high normal; Status: F Test: SQUAMOUS EPITHELIAL CELL UR AU; Value: 0; Range: 0-6; Units: /HPF; Status: F Test: MUCUS, URINE; Value: SMALL; Range: NEGATIVE; Status: F Test: HYALINE CAST, URINE AUTO; Value: 0; Range: 0-1; Units: /LPF; Status: F Test: AMORPHOUS SEDIMENT; Value: SMALL; Range: NEGATIVE; Abnormal: Above high normal; Status: F Lab Order: Urine Culture; SPEC'M 05/15/16 02:17 Test: URINE CULTURE; Value: ORGANISM 1: STAPHYLOCOCCUS EPIDERMIDIS; Status: F Test: URINE CULTURE; Value: STAPHYLOCOCCUS EPIDERMIDIS; Status: F Test: URINE CULTURE; Value: COLONY COUNT CFU/ml 100,000; Status: F Test: URINE CULTURE; Value: GRAM POS SENSI - VITEK 67; Status: F Test: URINE CULTURE; Value: Method: VIT2; Status: F Test: URINE CULTURE; Value: TETRACYCLINE 2 S; Status: F Test: URINE CULTURE; Value: PENICILLIN G >=0.5 R; Status: F Test: URINE CULTURE; Value: TRIMETHOPRIM/SULFAMETHOXAZOLE >=320 R; Status: F Test: URINE CULTURE; Value: ERYTHROMYCIN >=8 R; Status: F Test: URINE CULTURE; Value: GENTAMICIN 8 I; Status: F Test: URINE CULTURE; Value: CLINDAMYCIN >=8 R; Status: F Test: URINE CULTURE; Value: NITROFURANTOIN <=16 S; Status: F Test: URINE CULTURE; Value: OXACILLIN >=4 R; Status: F Test: URINE CULTURE; Value: VANCOMYCIN 1 S; Status: F Test: URINE CULTURE; Value: LINEZOLID (ZYVOX) 2 S; Status: F Outcome: 03:28 Discharge ordered by Provider. [facility] 03:44 Discharge Assessment: patient administered narcotics - no. The following High Risk [facility] Discharge criteria are identified: None. Discharged to home via wheelchair, with family. Condition: good Condition: stable Condition: improved. No special radiology studies were completed. Property :Personal belongings accompany Pt. 03:45 Patient left the ED. [facility] Addendum: 05/19/2016 09:36 Narrative: Urine culture results reviewed by Dr Thompson. Pt contacted and prescription mcp for Doxycycline 100mg po BID x 10 days called into [facility] pharmacy at [employer] per pts request. Pt informed to stop taking cipro. Signatures: Alecia Morgan, RN RN kmg1 Yolanda Martin RN RN Terrell Leach, DO cs11 Emilio Lisa RN RN josuéb Gunjan Zapata, Reg Reg hs2 Viridiana Grier RN RN kas2 Gail, Atif Leigh, Reg Reg pm4 MTDD
--- NOTE | 2016-05-19 09:39 | EDDOCDS ---
Physician Documentation [facility] Name: Talha Major Age: 66 yrs Sex: Male : 1950 Arrival Date: 05/15/2016 Time: 01:32 Bed 12 Private MD: Disposition: 05/15/16 03:28 Discharged to Home/Self Care. Impression: Urinary tract infection, site not specified, Cystitis, unspecified. - Condition is Stable. - Prescriptions for Cipro 500 mg Oral Tablet - take 1 tablet by ORAL route every 12 hours; 10 tablet. - Medication Reconciliation, Local Pharmacy Hours form. - Follow up: Private Physician; When: 1 - 2 days; Reason: Recheck today's complaints, Continuance of care. - Problem is new. - Symptoms have improved. Historical: - Allergies: Niacinflush, itching, burning; - Home Meds: 1. allopurinol 100 mg Oral tab 1 tab 2 times per day 2. amlodipine 10 mg Oral tab 1 tab once daily 3. aspirin 81 mg Oral TbEC 1 tab once daily 4. atorvastatin 80 mg oral tab 1 tab once daily 5. Benadryl 25 mg Oral cap as needed 6. bupropion HCl 150 mg Oral TbER 1 tab once daily 7. cetirizine 10 mg oral tab 1 tab once daily 8. Dulcolax (bisacodyl) 5 mg Oral TbEC 1 tab as needed 9. cholecalciferol 1000 units twice a day 10. fenofibrate 135mg oral tab once daily 11. folic acid 1 mg Oral tab 1 tab once daily 12. furosemide 40 mg Oral tab 20 mg once daily 13. Lantus 100 unit/mL Sub-Q soln 20 unit twice a day morning and night 14. levothyroxine 75 mcg Oral tab once daily 15. magnesium oxide 400 mg Oral tab 400 mg daily 16. metformin 1,000 mg Oral tab 1 tab 2 times per day 17. metoclopramide HCl 10 mg Oral tab 1 tab 4 times per day 18. metoprolol tartrate 25 mg Oral tab 1 tab 2 times per day 19. nitroglycerin 0.4 mg SL subl 1 tab every 5 minutes spray 20. Novolog 100 unit/mL Sub-Q soln sliding scale before meals 21. omega-3 fatty acids 1,000 mg oral cap daily 22. ondansetron HCl 4 mg Oral tab as needed 23. tamsulosin 0.4 mg oral cp24 1 cap once daily - PMHx: ALS; CHF; diabetes - IDDM; Hypercholesterolemia; hyperlipidemia; Hypertension; Hypothyroidism; neuropathy; - PSHx: Cardiac stents; CABG; Intestinal obstruction; Appendectomy; 3-cysts removed; Hernia repair; PEG Tube Insertion; - Social history: Smoking status: Patient states former smoker of tobacco. No barriers to communication noted, The patient speaks fluent Turkmen, Speaks appropriately for age. - Family history: Not pertinent. - : The pt / caregiver states he / she is not on anticoagulants. Home medication list is obtained from the patient. - Exposure Risk Screening:: None identified. Vital Signs: 05/15 01:37 Weight 66.22 kg / 145.99 lbs (R); Height 5 ft. 8 in. (172.72 cm) (R); Pain 0/10; jmb 02:00 BP 129 / 73 (auto/); kas2 02:01 Pulse Ox 96% ; kas2 02:01 BP 132 / 75; Pulse 82; Resp 18; Temp 97.6(O); Pulse Ox 99% on BiPAP; Pain 0/10; kas2 01:37 Body Mass Index 22.20 (66.22 kg, 172.72 cm) [facility] MDM: 01:54 Misc. Nursing Order ordered. cs11 01:55 Urinalysis Ordered. EDMS 01:55 Urine Culture Ordered. EDMS 02:50 Urinalysis Reviewed. cs11 02:50 Ciprofloxacin 500 mg PO once ordered. cs11 03:03 Financial registration complete. pm4 03:57 [facility] Payment Agreement was scanned into [employer] and attached to record. pm4 07:42 T-Sheet-- Draft Copy was scanned into [employer] and attached to record. [facility] Administered Medications: 02:59 Drug: Ciprofloxacin 500 mg [ciprofloxacin 500 mg tablet (1 tabs)] Route: PO; kas2 Signatures: Dispatcher [employer] Terrell Jacobs DO DO cs11 Emilio Lisa RN RN jmb Smith, Kim, RN RN kas2 Samanta Reynolds Paul, Reg Reg pm4 The chart was reviewed and I authenticate all verbal orders and agree with the evaluation and treatment provided.Attachments: 03:57 [facility] Payment Agreement pm4 07:42 T-Sheet-- Draft Copy seh Chart Complete MTDD
--- NOTE | 2016-05-19 11:31 | EDDOCDS ---
Physician Documentation [facility] Name: Talha Major Age: 66 yrs Sex: Male : 1950 Arrival Date: 05/15/2016 Time: 01:32 Bed 12 Private MD: Disposition: 05/15/16 03:28 Discharged to Home/Self Care. Impression: Urinary tract infection, site not specified, Cystitis, unspecified. - Condition is Stable. - Prescriptions for Cipro 500 mg Oral Tablet - take 1 tablet by ORAL route every 12 hours; 10 tablet. - Medication Reconciliation, Local Pharmacy Hours form. - Follow up: Private Physician; When: 1 - 2 days; Reason: Recheck today's complaints, Continuance of care. - Problem is new. - Symptoms have improved. Historical: - Allergies: Niacinflush, itching, burning; - Home Meds: 1. allopurinol 100 mg Oral tab 1 tab 2 times per day 2. amlodipine 10 mg Oral tab 1 tab once daily 3. aspirin 81 mg Oral TbEC 1 tab once daily 4. atorvastatin 80 mg oral tab 1 tab once daily 5. Benadryl 25 mg Oral cap as needed 6. bupropion HCl 150 mg Oral TbER 1 tab once daily 7. cetirizine 10 mg oral tab 1 tab once daily 8. Dulcolax (bisacodyl) 5 mg Oral TbEC 1 tab as needed 9. cholecalciferol 1000 units twice a day 10. fenofibrate 135mg oral tab once daily 11. folic acid 1 mg Oral tab 1 tab once daily 12. furosemide 40 mg Oral tab 20 mg once daily 13. Lantus 100 unit/mL Sub-Q soln 20 unit twice a day morning and night 14. levothyroxine 75 mcg Oral tab once daily 15. magnesium oxide 400 mg Oral tab 400 mg daily 16. metformin 1,000 mg Oral tab 1 tab 2 times per day 17. metoclopramide HCl 10 mg Oral tab 1 tab 4 times per day 18. metoprolol tartrate 25 mg Oral tab 1 tab 2 times per day 19. nitroglycerin 0.4 mg SL subl 1 tab every 5 minutes spray 20. Novolog 100 unit/mL Sub-Q soln sliding scale before meals 21. omega-3 fatty acids 1,000 mg oral cap daily 22. ondansetron HCl 4 mg Oral tab as needed 23. tamsulosin 0.4 mg oral cp24 1 cap once daily - PMHx: ALS; CHF; diabetes - IDDM; Hypercholesterolemia; hyperlipidemia; Hypertension; Hypothyroidism; neuropathy; - PSHx: Cardiac stents; CABG; Intestinal obstruction; Appendectomy; 3-cysts removed; Hernia repair; PEG Tube Insertion; - Social history: Smoking status: Patient states former smoker of tobacco. No barriers to communication noted, The patient speaks fluent Burundian, Speaks appropriately for age. - Family history: Not pertinent. - : The pt / caregiver states he / she is not on anticoagulants. Home medication list is obtained from the patient. - Exposure Risk Screening:: None identified. Vital Signs: 05/15 01:37 Weight 66.22 kg / 145.99 lbs (R); Height 5 ft. 8 in. (172.72 cm) (R); Pain 0/10; jmb 02:00 BP 129 / 73 (auto/); kas2 02:01 Pulse Ox 96% ; kas2 02:01 BP 132 / 75; Pulse 82; Resp 18; Temp 97.6(O); Pulse Ox 99% on BiPAP; Pain 0/10; kas2 01:37 Body Mass Index 22.20 (66.22 kg, 172.72 cm) [facility] MDM: 01:54 Misc. Nursing Order ordered. cs11 01:55 Urinalysis Ordered. EDMS 01:55 Urine Culture Ordered. EDMS 02:50 Urinalysis Reviewed. cs11 02:50 Ciprofloxacin 500 mg PO once ordered. cs11 03:03 Financial registration complete. pm4 03:57 [facility] Payment Agreement was scanned into [employer] and attached to record. pm4 07:42 T-Sheet-- Draft Copy was scanned into [employer] and attached to record. [facility] Administered Medications: 02:59 Drug: Ciprofloxacin 500 mg [ciprofloxacin 500 mg tablet (1 tabs)] Route: PO; kas2 Signatures: Dispatcher [employer] Terrell Jacobs DO DO cs11 Emilio Lisa RN RN jmb Smith, Kim, RN RN kas2 Samanta Reynolds Paul, Reg Reg pm4 The chart was reviewed and I authenticate all verbal orders and agree with the evaluation and treatment provided.Attachments: 03:57 [facility] Payment Agreement pm4 07:42 T-Sheet-- Draft Copy seh Chart Complete MTDD
--- NOTE | 2016-05-19 11:31 | EDDOCDS ---
Nurse's Notes [facility] Name: Talha Major Age: 66 yrs Sex: Male : 1950 Arrival Date: 05/15/2016 Time: 01:32 Bed 12 Private MD: Diagnosis: Urinary tract infection, site not specified;Cystitis, unspecified Presentation: 05/15 01:35 Presenting complaint: Child states: Patient hasn't put anything out in catheter in over jmb 6 hours with feeling of needing to urinate. Peg tube also looks infected. Adult Sepsis Screening: The patient does not have new or worsening altered mentation. Patient's respiratory rate is less than 22. Systolic blood pressure is greater than 100. Patient has a qSOFA score of 0- Negative Sepsis Screen. Suicide/Homicide risk assessment- the patient denies having any suicidal and/or homicidal ideations and does not present with any other emotional, behavioral or mental health complaints. 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 Transition of care: patient was not received from another setting of care. 01:35 Acuity: ZOILA Level 3 b 01:35 Method Of Arrival: Wheelchair [facility] Triage Assessment: 01:37 General: Appears in no apparent distress, Behavior is appropriate for age, cooperative. jmb Pain: Denies pain. Neurological: Level of Consciousness is awake, alert, obeys commands, Oriented to person, place, time. Respiratory: Airway is patent Respiratory effort is even, Respiratory pattern is regular. Derm: Skin is pink, warm & dry. Musculoskeletal: Range of motion intact in all extremities. Historical: - Allergies: Niacinflush, itching, burning; - Home Meds: 1. allopurinol 100 mg Oral tab 1 tab 2 times per day 2. amlodipine 10 mg Oral tab 1 tab once daily 3. aspirin 81 mg Oral TbEC 1 tab once daily 4. atorvastatin 80 mg oral tab 1 tab once daily 5. Benadryl 25 mg Oral cap as needed 6. bupropion HCl 150 mg Oral TbER 1 tab once daily 7. cetirizine 10 mg oral tab 1 tab once daily 8. Dulcolax (bisacodyl) 5 mg Oral TbEC 1 tab as needed 9. cholecalciferol 1000 units twice a day 10. fenofibrate 135mg oral tab once daily 11. folic acid 1 mg Oral tab 1 tab once daily 12. furosemide 40 mg Oral tab 20 mg once daily 13. Lantus 100 unit/mL Sub-Q soln 20 unit twice a day morning and night 14. levothyroxine 75 mcg Oral tab once daily 15. magnesium oxide 400 mg Oral tab 400 mg daily 16. metformin 1,000 mg Oral tab 1 tab 2 times per day 17. metoclopramide HCl 10 mg Oral tab 1 tab 4 times per day 18. metoprolol tartrate 25 mg Oral tab 1 tab 2 times per day 19. nitroglycerin 0.4 mg SL subl 1 tab every 5 minutes spray 20. Novolog 100 unit/mL Sub-Q soln sliding scale before meals 21. omega-3 fatty acids 1,000 mg oral cap daily 22. ondansetron HCl 4 mg Oral tab as needed 23. tamsulosin 0.4 mg oral cp24 1 cap once daily - PMHx: ALS; CHF; diabetes - IDDM; Hypercholesterolemia; hyperlipidemia; Hypertension; Hypothyroidism; neuropathy; - PSHx: Cardiac stents; CABG; Intestinal obstruction; Appendectomy; 3-cysts removed; Hernia repair; PEG Tube Insertion; - Social history: Smoking status: Patient states former smoker of tobacco. No barriers to communication noted, The patient speaks fluent Mexican, Speaks appropriately for age. - Family history: Not pertinent. - : The pt / caregiver states he / she is not on anticoagulants. Home medication list is obtained from the patient. - Exposure Risk Screening:: None identified. Screenin:02 Screening information is obtained from the patient. Fall risk: No risks identified. kas2 Assistance ADL's: requires no assistance with activities of daily living. Abuse/DV Screen: The patient / caregiver reports he/she is: not in a situation that causes fear, pain or injury. Nutritional screening: No deficits noted. Advance Directives: Currently, there is no health care proxy. There is no active DNR order. There is no living will. There is no Power of Lithostripper. home support is adequate. Assessment: 01:55 General: Appears in no apparent distress, comfortable, well nourished, well groomed, kas2 Behavior is appropriate for age, cooperative. Pain: Denies pain. Neurological: Level of Consciousness is awake, alert, Oriented to person, place, time. Cardiovascular: Capillary refill < 3 seconds Heart tones S1 S2 present. Respiratory: Airway is patent Respiratory effort is even, unlabored, Respiratory pattern is regular, symmetrical, Breath sounds are clear bilaterally. GI: Abdomen is flat, non- distended Bowel sounds present X 4 quads. : Carter in place Reports urgency. Derm: Skin is intact, is healthy with good turgor, Skin is dry, Skin is pink, warm & dry. Skin temperature is warm. 02:18 General: Carter catheter flushed with 100ml of NS. Good return of clear yellow urine. kas2 Patient tolerated procedure well. . 03:27 General: Patient sitting in bed with daughter at bedside. No apparent distress noted. kas2 Appears comfortable. Denies pain or discomfort at this time. Call ardon within reach. Will continue to monitor.. Vital Signs: 01:37 Weight 66.22 kg (R); Height 5 ft. 8 in. (172.72 cm) (R); Pain 0/10; b 02:00 BP 129 / 73 (auto/); kas2 02:01 Pulse Ox 96% ; [facility] 02:01 BP 132 / 75; Pulse 82; Resp 18; Temp 97.6(O); Pulse Ox 99% on BiPAP; Pain 0/10; kas2 01:37 Body Mass Index 22.20 (66.22 kg, 172.72 cm) [facility] Vitals: 01:37 Log In Time: May 15, 2016 at 01:33. [facility] ED Course: 01:33 Patient visited by Gunjan Zapata Reg. hs2 01:33 Patient moved to Waiting hs2 01:36 Triage Initiated [facility] 01:39 Carlito Chaudhry RN is Primary Nurse. b 01:39 Viridiana Grier RN is Primary Nurse. [facility] 01:39 Patient moved to 12 [facility] 01:43 Terrell Menchaca DO is Attending Physician. cs11 01:43 Patient visited by Terrell Menchaca DO. cs11 02:03 Patient visited by Viridiana Grier RN. kas2 02:18 Patient visited by Viridiana Grier RN. kas2 02:18 Urine Culture Sent. kas2 02:18 Urinalysis Sent. kas2 02:19 Urine collected. Specimen obtained from Carter. kas2 02:20 Patient visited by Viridiana Grier RN. kas2 02:25 Primary Nurse role handed off by Carlito Chaudhry RN kmg1 02:54 Patient visited by Viridiana Grier RN. kas2 03:28 Patient visited by Viridiana Grier RN. kas2 03:45 The patient / caregiver is instructed regarding the plan of care and ED course. kas2 03:45 No IV's were initiated during this patient's visit. No procedures done that require [facility] assistance. 03:57 [facility] Payment Agreement was scanned into Fetch [employer] and attached to record. pm4 07:42 T-Sheet-- Draft Copy was scanned into Fetch MD and attached to record. [facility] Administered Medications: 02:59 Drug: Ciprofloxacin 500 mg [ciprofloxacin 500 mg tablet (1 tabs)] Route: PO; kas2 Order Results: Lab Order: Urinalysis; SPEC'M 05/15/16 02:17 Test: APPEARANCE, URINE; Value: CLOUDY; Range: CLEAR; Abnormal: Above high normal; Status: F Test: COLOR, URINE; Value: YELLOW; Range: YELLOW; Status: F Test: PH,URINE; Value: 6.0; Range: 5.0-9.0; Units: UNITS; Status: F Test: SPECIFIC GRAVITY URINE AUTO; Value: 1.020; Range: 1.002-1.035; Status: F Test: PROTEIN, URINE AUTO; Value: 2+; Range: NEGATIVE; Abnormal: Above high normal; Units: mg/dL; Status: F Test: GLUCOSE, URINE (UA) AUTO; Value: NEGATIVE; Range: NEGATIVE; Units: mg/dL; Status: F Test: KETONE, URINE AUTO; Value: NEGATIVE; Range: NEGATIVE; Units: mg/dL; Status: F Test: UROBILINOGEN, URINE AUTO; Value: 0.2; Range: 0.0-2.0; Units: mg/dL; Status: F Test: BILIRUBIN, URINE AUTO; Value: NEGATIVE; Range: NEGATIVE; Status: F Test: NITRITE, URINE AUTO; Value: POSITIVE; Range: NEGATIVE; Status: F Test: LEUKOCYTE ESTERASE, URINE AUTO; Value: 3+; Range: NEGATIVE; Abnormal: Above high normal; Status: F Test: BLOOD, URINE BLOOD; Value: 3+; Range: NEGATIVE; Abnormal: Above high normal; Status: F Test: WBC, URINE AUTO; Value: 131; Range: 0-3; Abnormal: Above high normal; Units: /HPF; Status: F Test: RBC, URINE AUTO; Value: TNTC; Range: 0-3; Abnormal: Above high normal; Units: /HPF; Status: F Test: BACTERIA, URINE AUTO; Value: 1+; Range: NEGATIVE; Abnormal: Above high normal; Status: F Test: SQUAMOUS EPITHELIAL CELL UR AU; Value: 0; Range: 0-6; Units: /HPF; Status: F Test: MUCUS, URINE; Value: SMALL; Range: NEGATIVE; Status: F Test: HYALINE CAST, URINE AUTO; Value: 0; Range: 0-1; Units: /LPF; Status: F Test: AMORPHOUS SEDIMENT; Value: SMALL; Range: NEGATIVE; Abnormal: Above high normal; Status: F Lab Order: Urine Culture; SPEC'M 05/15/16 02:17 Test: URINE CULTURE; Value: ORGANISM 1: STAPHYLOCOCCUS EPIDERMIDIS; Status: F Test: URINE CULTURE; Value: STAPHYLOCOCCUS EPIDERMIDIS; Status: F Test: URINE CULTURE; Value: COLONY COUNT CFU/ml 100,000; Status: F Test: URINE CULTURE; Value: GRAM POS SENSI - VITEK 67; Status: F Test: URINE CULTURE; Value: Method: VIT2; Status: F Test: URINE CULTURE; Value: TETRACYCLINE 2 S; Status: F Test: URINE CULTURE; Value: PENICILLIN G >=0.5 R; Status: F Test: URINE CULTURE; Value: TRIMETHOPRIM/SULFAMETHOXAZOLE >=320 R; Status: F Test: URINE CULTURE; Value: ERYTHROMYCIN >=8 R; Status: F Test: URINE CULTURE; Value: GENTAMICIN 8 I; Status: F Test: URINE CULTURE; Value: CLINDAMYCIN >=8 R; Status: F Test: URINE CULTURE; Value: NITROFURANTOIN <=16 S; Status: F Test: URINE CULTURE; Value: OXACILLIN >=4 R; Status: F Test: URINE CULTURE; Value: VANCOMYCIN 1 S; Status: F Test: URINE CULTURE; Value: LINEZOLID (ZYVOX) 2 S; Status: F Outcome: 03:28 Discharge ordered by Provider. [facility] 03:44 Discharge Assessment: patient administered narcotics - no. The following High Risk [facility] Discharge criteria are identified: None. Discharged to home via wheelchair, with family. Condition: good Condition: stable Condition: improved. No special radiology studies were completed. Property :Personal belongings accompany Pt. 03:45 Patient left the ED. [facility] Addendum: 05/19/2016 09:36 Narrative: Urine culture results reviewed by Dr Thompson. Pt contacted and prescription mcp for Doxycycline 100mg po BID x 10 days called into [facility] pharmacy at [employer] per pts request. Pt informed to stop taking cipro. Signatures: Alecia Morgan, RN RN kmg1 Yolanda Martin RN RN Terrell Leach, DO cs11 Emilio Lisa RN RN josuéb Gunjan Zapata, Reg Reg hs2 Viridiana Grier RN RN kas2 Gail, Atif Leigh, Reg Reg pm4 Chart Complete MTDD
--- NOTE | 2016-05-19 11:31 | EDDOCDS ---
Physician Documentation [facility] Name: Talha Major Age: 66 yrs Sex: Male : 1950 Arrival Date: 05/15/2016 Time: 01:32 Bed 12 Private MD: Disposition: 05/15/16 03:28 Discharged to Home/Self Care. Impression: Urinary tract infection, site not specified, Cystitis, unspecified. - Condition is Stable. - Prescriptions for Cipro 500 mg Oral Tablet - take 1 tablet by ORAL route every 12 hours; 10 tablet. - Medication Reconciliation, Local Pharmacy Hours form. - Follow up: Private Physician; When: 1 - 2 days; Reason: Recheck today's complaints, Continuance of care. - Problem is new. - Symptoms have improved. Historical: - Allergies: Niacinflush, itching, burning; - Home Meds: 1. allopurinol 100 mg Oral tab 1 tab 2 times per day 2. amlodipine 10 mg Oral tab 1 tab once daily 3. aspirin 81 mg Oral TbEC 1 tab once daily 4. atorvastatin 80 mg oral tab 1 tab once daily 5. Benadryl 25 mg Oral cap as needed 6. bupropion HCl 150 mg Oral TbER 1 tab once daily 7. cetirizine 10 mg oral tab 1 tab once daily 8. Dulcolax (bisacodyl) 5 mg Oral TbEC 1 tab as needed 9. cholecalciferol 1000 units twice a day 10. fenofibrate 135mg oral tab once daily 11. folic acid 1 mg Oral tab 1 tab once daily 12. furosemide 40 mg Oral tab 20 mg once daily 13. Lantus 100 unit/mL Sub-Q soln 20 unit twice a day morning and night 14. levothyroxine 75 mcg Oral tab once daily 15. magnesium oxide 400 mg Oral tab 400 mg daily 16. metformin 1,000 mg Oral tab 1 tab 2 times per day 17. metoclopramide HCl 10 mg Oral tab 1 tab 4 times per day 18. metoprolol tartrate 25 mg Oral tab 1 tab 2 times per day 19. nitroglycerin 0.4 mg SL subl 1 tab every 5 minutes spray 20. Novolog 100 unit/mL Sub-Q soln sliding scale before meals 21. omega-3 fatty acids 1,000 mg oral cap daily 22. ondansetron HCl 4 mg Oral tab as needed 23. tamsulosin 0.4 mg oral cp24 1 cap once daily - PMHx: ALS; CHF; diabetes - IDDM; Hypercholesterolemia; hyperlipidemia; Hypertension; Hypothyroidism; neuropathy; - PSHx: Cardiac stents; CABG; Intestinal obstruction; Appendectomy; 3-cysts removed; Hernia repair; PEG Tube Insertion; - Social history: Smoking status: Patient states former smoker of tobacco. No barriers to communication noted, The patient speaks fluent Namibian, Speaks appropriately for age. - Family history: Not pertinent. - : The pt / caregiver states he / she is not on anticoagulants. Home medication list is obtained from the patient. - Exposure Risk Screening:: None identified. Vital Signs: 05/15 01:37 Weight 66.22 kg / 145.99 lbs (R); Height 5 ft. 8 in. (172.72 cm) (R); Pain 0/10; jmb 02:00 BP 129 / 73 (auto/); kas2 02:01 Pulse Ox 96% ; kas2 02:01 BP 132 / 75; Pulse 82; Resp 18; Temp 97.6(O); Pulse Ox 99% on BiPAP; Pain 0/10; kas2 01:37 Body Mass Index 22.20 (66.22 kg, 172.72 cm) [facility] MDM: 01:54 Misc. Nursing Order ordered. cs11 01:55 Urinalysis Ordered. EDMS 01:55 Urine Culture Ordered. EDMS 02:50 Urinalysis Reviewed. cs11 02:50 Ciprofloxacin 500 mg PO once ordered. cs11 03:03 Financial registration complete. pm4 03:57 [facility] Payment Agreement was scanned into [email or web address] and attached to record. pm4 07:42 T-Sheet-- Draft Copy was scanned into [email or web address] and attached to record. [facility] Administered Medications: 02:59 Drug: Ciprofloxacin 500 mg [ciprofloxacin 500 mg tablet (1 tabs)] Route: PO; kas2 Signatures: Dispatcher [employer] Terrell Jacobs DO DO cs11 Emilio Lisa RN RN jmb Smith, Kim, RN RN kas2 Samanta Reynolds Paul, Reg Reg pm4 The chart was reviewed and I authenticate all verbal orders and agree with the evaluation and treatment provided.Attachments: 03:57 [facility] Payment Agreement pm4 07:42 T-Sheet-- Draft Copy seh Chart Complete MTDD
== END 2016-05-15 03:45 | disposition home or self-care (01) ==
LOC: M ED 01:32
DX: N39.0 Urinary tract infection, site not specified (principal); G12.21 Amyotrophic lateral sclerosis; I50.9 Heart failure, unspecified; E11.9 Type 2 diabetes mellitus without complications; E78.00 Pure hypercholesterolemia, unspecified; E78.5 Hyperlipidemia, unspecified; I10 Essential (primary) hypertension; E03.9 Hypothyroidism, unspecified; G62.9 Polyneuropathy, unspecified; Z95.1 Presence of aortocoronary bypass graft; Z90.89 Acquired absence of other organs; Z93.1 Gastrostomy status; Z87.891 Personal history of nicotine dependence; Z79.4 Long term (current) use of insulin; Z79.82 Long term (current) use of aspirin; Z79.899 Other long term (current) drug therapy; Z88.8 Allergy status to other drugs, medicaments and biological substances

== ENCOUNTER 2016-05-24 11:26 | Inpatient (IN) | payer MEDICARE, OTHER ==
[~2016-05-24] VITALS: Ht 172.7 cm; Wt 72.5 kg
[2016-05-24] MEDS ORDERED: ALBUTEROL SULFATE 2.5 MG/0.5 ML INH NEB SOLN As Ordered ONE (12:06)
[2016-05-24] MEDS ORDERED: IPRATROPIUM 0.5MG/ALBUTEROL 2.5MG INH SOL UD 3ML (DUONEB)(J7620) As Ordered ONE (12:06)
[2016-05-24] MEDS ORDERED: methylPREDNISolone INJ 125 MG/2 ML VIAL (J2930) As Ordered ONE (12:10)
[2016-05-24 12:15] LABS: BASO # 0.1 K/mm3 (0.0-0.2); BASO % 0.7 % (0.0-1.0); EOS # 0.1 K/mm3 (0.0-0.50); EOS % 0.7 % (0.0-3.0); LARGE UNSTAINED CELL # 0.1 K/mm3 (0.0-0.4); LARGE UNSTAINED CELL % 0.9 % (0.0-4.0); LYMPH # 1.1 K/mm3 (1.5-4.5); LYMPH % 10.5 % (24.0-44.0); MEAN CORPUSCULAR HEMOGLOBIN 30.5 pg (27.0-33.0); MEAN CORPUSCULAR HGB CONC 33.7 g/dl (32.0-36.5); MEAN CORPUSCULAR VOLUME 90.5 fl (80.0-96.0); MONO # 0.5 K/mm3 (0.0-0.8); MONO % 5.3 % (0.0-5.0); NEUTROPHILS # 8.2 K/mm3 (1.8-7.7); NEUTROPHILS % 81.8 % (36.0-66.0); PLATELET COUNT, AUTOMATED 236 k/mm3 (150-450); RED CELL DISTRIBUTION WIDTH 13.3 % (11.5-14.5)
[2016-05-24 12:23] LABS: INR 1.04
[2016-05-24 12:32] LABS: ABG DEVICE NASAL CANN; ABG HCO3 22.9 MEQ/L (22.0-26.0); ABG PARTIAL PRESSURE CO2 48.7 mmHg (35.0-45.0); ABG PARTIAL PRESSURE O2 138.8 mmHg (75.0-100.0); ABG STANDARD HCO3 21.2 MEQ/L (22.0-26.0); ABG TOTAL CO2 24.4 MEQ/L (23.0-31.0)
[2016-05-24 12:35] LABS: ALBUMIN 3.8 GM/DL (3.2-5.2); ALBUMIN/GLOBULIN RATIO 1.03 (1.00-1.93); ALKALINE PHOSPHATASE 55 U/L (45-117); ALT/SGPT 32 U/L (12-78); AMYLASE 52 U/L (25-115); ANION GAP 7 MEQ/L (8-16); AST/SGOT 20 U/L (15-37); BILIRUBIN,DIRECT 0.1 MG/DL (0.0-0.2); BILIRUBIN,TOTAL 0.6 MG/DL (0.2-1.0); BLOOD UREA NITROGEN 20 MG/DL (7-18); CALCIUM LEVEL 9.5 MG/DL (8.8-10.2); CARBON DIOXIDE LEVEL 30 MEQ/L (21-32); CHLORIDE LEVEL 105 MEQ/L (98-107); CREATININE FOR GFR 0.95 MG/DL (0.70-1.30); GLOMERULAR FILTRATION RATE > 60.0 (>49); GLUCOSE, FASTING 133 MG/DL (80-110); SODIUM LEVEL 142 MEQ/L (136-145); TOTAL PROTEIN 7.5 GM/DL (6.4-8.2)
--- NOTE | 2016-05-24 13:15 | REP ---
Portable chest x-ray: Single view. History: Shortness of breath. Findings: Oxygen delivery tubing and EKG monitoring electrodes are seen. Median sternotomy wires are noted. Mild cardiomegaly is again noted unchanged from the comparison study of February 03, 2016. The lungs are well inflated and clear. Pleural angles are sharp. Pulmonary vasculature is not increased. Impression: Mild cardiomegaly status post prior sternotomy. Otherwise no active disease. Signed by Lionel Morel MD 05/24/2016 01:44 P
[2016-05-24] MEDS ORDERED: VANCOMYCIN HCL 500 MG, VIAL MATE ADAPTER 1 EACH in D5W 250 ML IV SCH (15:30)
[2016-05-24] MEDS ORDERED: FLON1SPR (15:39)
[2016-05-24] MEDS ORDERED: INSUH10VL SC (15:39)
[2016-05-24] MEDS ORDERED: BISA5TAB7 PO (15:39)
[2016-05-24] MEDS ORDERED: CETI10TA PO (15:39)
[2016-05-24] MEDS ORDERED: NITR4TASL SL (15:39)
[2016-05-24] MEDS ORDERED: INSULANT SC (15:39)
[2016-05-24] MEDS ORDERED: FURO20TA2 PO (15:39)
[2016-05-24] MEDS ORDERED: HYDR1CAP25 PO (15:39)
[2016-05-24] MEDS ORDERED: ASPI1TAB PO (15:39)
[2016-05-24] MEDS ORDERED: TYLE325T5 PO (15:39)
[2016-05-24] MEDS ORDERED: PERF20NE2 INH (15:39)
[2016-05-24] MEDS ORDERED: BACL10TA2 PO (15:39)
[2016-05-24] MEDS ORDERED: VITA100066 PO (15:39)
[2016-05-24] MEDS ORDERED: METF1000 PO (15:39)
[2016-05-24] MEDS ORDERED: METO50TA2 PO (15:39)
[2016-05-24] MEDS ORDERED: ONDA1TAB15 PO (15:41)
[2016-05-24] MEDS ORDERED: OMEG100011 PO (15:41)
[2016-05-24] MEDS ORDERED: DOXY100C37 PO (15:41)
[2016-05-24] MEDS ORDERED: ALBU17IN INH (15:43)
[2016-05-24] MEDS ORDERED: VITMTA PO (15:43)
--- NOTE | 2016-05-24 17:36 | ECGEPIP ---
Stationary ECG Study [facility] - ED Test Date: 2016-05-24 Pat Name: MILA WEIR Department: Room: - Gender: M Cherry Cutter: mateus : 1950 Requested By: Yung Avila Order Number: [id number] Reading MD: Anish Thompson Measurements Intervals Lindsay Rate: 78 P: 52 HI: 225 QRS: 70 QRSD: 106 T: 31 QT: 394 QTc: 450 Interpretive Statements SINUS RHYTHM WITH FIRST DEGREE AV BLOCK POSSIBLE INFERIOR MYOCARDIAL INFARCTION, PROBABLY OLD Electronically Signed On 05-24-2016 17:36:03 EST by Anish Thompson
[2016-05-24] MEDS ORDERED: VANCOMYCIN 1000 MG/20 ML VIAL (J3370) As Ordered ONE (19:03)
[2016-05-24] MEDS ORDERED: VANCOMYCIN HCL 500 MG/10 ML VIAL (J3370) As Ordered ONE (19:03)
[2016-05-24] MEDS: FORMOTEROL FUMARATE 20 MCG/2 ML INHALATION SOLUTION (PERFOROMIST) INH SCH (20:00)
[2016-05-24] MEDS ORDERED: ACETAMINOPHEN 325 MG TAB PO PRN (20:15)
[2016-05-24] MEDS ORDERED: DEXTROSE 50% 50 ML SYRINGE IV PRN (20:15)
[2016-05-24] MEDS ORDERED: hydrOXYzine 25 MG TAB PO PRN (20:15)
[2016-05-24] MEDS ORDERED: GLUCOSE 4 GM CHEW TABLET PO PRN (20:15)
[2016-05-24] MEDS ORDERED: NITROGLYCERIN 0.4 MG SUBL TABLET SL PRN (20:15)
[2016-05-24] MEDS ORDERED: ALBUTEROL 90 MCG/ACT 8GM HFA INHALER INH PRN (20:15)
[2016-05-24] MEDS ORDERED: ONDANSETRON 4 MG TAB (S0181) PO PRN (20:15)
[2016-05-24] MEDS ORDERED: GLUCAGON FOR INJ 1 MG VIAL (J1610) SC PRN (20:15)
--- NOTE | 2016-05-24 20:35 | HPE ---
DATE OF ADMISSION: 05/24/[address] Locke for primary. HISTORY OF PRESENT ILLNESS: The patient is a 66-year-old male with a past medical history significant for amyotrophic lateral sclerosis, congestive heart failure, chronic obstructive pulmonary disease (COPD), history of sinusitis, insulin-dependent diabetes, hyperlipidemia, hypertension, hypothyroidism, neuropathy, coronary artery disease, BPH, presented to the emergency room for urgency to go to the bathroom and urinary-like symptoms. The patient was seen last Tuesday; he was diagnosed with a urinary tract infection (UTI) and was given antibiotics. However, sensitivity came back; it was resistant to the antibiotics he was given, and he was told to return back to the emergency room. Today, the patient is also complaining of a dry cough, unable to bring up any mucus and has been feeling some shortness of breath. The patient is on bilevel positive airway pressure (BiPAP) all the time that he started to wear in April. He gets most of his followups through the [facility]. 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 In the emergency room, the patient had good oxygen saturation. Hospitalist was called for the admission. REVIEW OF SYSTEMS: 12-point review of systems was obtained, all of which was negative except for those mentioned above. PAST MEDICAL HISTORY: As above. PAST SURGICAL HISTORY: Cardiac stents, coronary artery bypass graft (CABG), intestinal obstruction, appendectomy, skin cyst removal, hemorrhoidectomy, percutaneous endoscopic gastrostomy (PEG) tube insertion but, he does not use it and hernia repair. SOCIAL HISTORY: The patient used to smoke but quit a year ago. Denies alcohol use. Lives at home with his and daughter. FAMILY HISTORY: Noncontributory. HOME MEDICATIONS: Include: - Tylenol 650 mg by mouth every 6 hours as needed for pain or fever - Ventolin two puffs inhaled four times a day - albuterol 100 mg by mouth twice a day - aspirin 81 mg by mouth daily - atorvastatin 40 mg by mouth at bedtime - baclofen 10 mg every 2 days - bisacodyl 5 mg by mouth every 2 days - bupropion 150 mg by mouth daily - cetirizine 10 mg daily - vitamin D 1000 units by mouth twice a day - doxycycline 100 mg by mouth twice a day - fenofibrate 135 mg by mouth at bedtime - Flonase one spray per naris twice a day - folic acid 1 mg by mouth daily - Perforomist 20 mcg inhaled twice a day - Lasix 20 mg by mouth daily - hydroxyzine 25 mg at bedtime as needed for sleep - insulin sliding scale - levothyroxine 75 mcg by mouth daily - magnesium oxide 400 mg by mouth daily - Lantus 15 units subcutaneously daily - metformin 1000 mg by mouth twice a day - metoprolol 50 mg by mouth twice a day - multivitamin one tablet by mouth daily - nitro 0.4 mg sublingually every 5 minutes as needed for chest pain - [place] 3 two capsules by mouth twice a day - Zofran 4 mg by mouth as needed for nausea or vomiting - Flomax 0.8 mg by mouth at bedtime ALLERGIES: NIACIN, reaction flushing and itching. PHYSICAL EXAMINATION: Blood pressure 174/101, pulse 83, respiratory rate 22, temperature 96.5, pulse oximetry 91% on 3 liters BiPAP. HEENT: Pupils equal, round, reactive. Neck: Supple. No jugular venous distention (JVD). Cardiac: Regular rate and rhythm. Lungs: Diminished breath sounds in all lung mo. Abdomen: Soft, nontender. PEG tube in place. Extremities: No clubbing, cyanosis or edema. Carter catheter in place. LABORATORY FINDINGS: WBC 10, hemoglobin 14.1, hematocrit 41.8, platelet count 236. Sodium 142, potassium 4, chloride 105, BUN 20, creatinine 0.95, glucose 133, lactic acid 1.2, INR 1.04. Urinalysis: Cloudy in appearance, 1+ bacteria, 121 WBCs, 3+ leukocyte esterase, positive nitrites. Chest x-ray showed mild cardiomegaly, status post prior sternotomy; otherwise no active disease. ASSESSMENT AND PLAN: 1. Urinary tract infection (UTI). Culture from last Tuesday was positive for Staphylococcus epidermidis, colony count 100,000. We will start the patient on intravenous (IV) vancomycin 500 mg every 8 hours. Continue Carter catheter. It was changed today. 2. Shortness of breath. The patient has a history of amyotrophic lateral sclerosis and chronic obstructive pulmonary disease. We will continue the patient's inhaler. We will continue BiPAP that the patient wears all the time. He has an appointment with his neurologist next . 3. History of amyotrophic lateral sclerosis. He was recently diagnosed in April. 4. History of congestive heart failure. Continue the patient's Lasix 20 mg daily. 5. Insulin-dependent diabetes. We will continue insulin sliding scale and Lantus, consistent carbohydrate diet. 6. History of hypertension. Continue the patient's home medication. 7. Hyperlipidemia. Continue the patient's home medication. 8. History of hypothyroidism. Continue Synthroid. 9. History of coronary artery disease. The patient denies any chest pain at this time. We will resume the patient's aspirin and statin, as well as a beta gautam twice a day. 10. Deep vein thrombosis (DVT) prophylaxis. Sequential compression devices (SCDs) while in bed.
--- NOTE | 2016-05-24 20:47 | EDDOCDS ---
Physician Documentation [facility] Name: Talha Major Age: 66 yrs Sex: Male : 1950 Arrival Date: 05/24/2016 Time: 11:26 Bed Admit Hold Private MD: Cornelia Disposition: 05/24 18:04 Critical Care:. ml Disposition: 05/24/16 14:38 Hospitalization ordered by Pattie Sanon for Inpatient Admission. Preliminary diagnosis are Respiratory failure, unspecified, Cystitis. - Bed requested for PCU. - Status is Inpatient Admission. sls1 - Condition is Stable. - Problem is new. - Symptoms are unchanged. Historical: - Allergies: Niacinflush, itching, burning; - Home Meds: 1. allopurinol 100 mg Oral tab 1 tab 2 times per day (Last dose: 05/24/2016 07:00) 2. amlodipine 10 mg Oral tab 1 tab once daily (Last dose: 05/24/2016 07:00) 3. aspirin 81 mg Oral TbEC 1 tab once daily (Last dose: 05/24/2016 07:00) 4. atorvastatin 80 mg oral tab 1 tab once daily (Last dose: 05/24/2016 07:00) 5. Benadryl 25 mg Oral cap as needed (Last dose: Unknown) 6. bupropion HCl 150 mg Oral TbER 1 tab once daily (Last dose: 05/24/2016 07:00) 7. cetirizine 10 mg oral tab 1 tab once daily (Last dose: 05/24/2016 07:00) 8. cholecalciferol 1000 units twice a day (Last dose: 05/24/2016 07:00) 9. Dulcolax (bisacodyl) 5 mg Oral TbEC 1 tab as needed (Last dose: 05/24/2016 07:00) 10. fenofibrate 135mg oral tab once daily (Last dose: 05/24/2016 07:00) 11. folic acid 1 mg Oral tab 1 tab once daily (Last dose: 05/24/2016 07:00) 12. furosemide 40 mg Oral tab 20 mg once daily (Last dose: 05/24/2016 07:00) 13. Lantus 100 unit/mL Sub-Q soln 20 unit twice a day morning and night (Last dose: 05/24/2016 07:00) 14. levothyroxine 75 mcg Oral tab once daily (Last dose: 05/24/2016 07:00) 15. magnesium oxide 400 mg Oral tab 400 mg daily (Last dose: 05/24/2016 07:00) 16. metformin 1,000 mg Oral tab 1 tab 2 times per day (Last dose: 05/24/2016 07:00) 17. metoclopramide HCl 10 mg Oral tab 1 tab 4 times per day (Last dose: 05/24/2016 07:00) 18. metoprolol tartrate 25 mg Oral tab 1 tab 2 times per day (Last dose: 05/24/2016 07:00) 19. nitroglycerin 0.4 mg SL subl 1 tab every 5 minutes spray (Last dose: Unknown) 20. Novolog 100 unit/mL Sub-Q soln sliding scale before meals (Last dose: 05/24/2016 07:00) 21. omega-3 fatty acids 1,000 mg oral cap daily (Last dose: 05/24/2016 07:00) 22. ondansetron HCl 4 mg Oral tab as needed (Last dose: 05/24/2016 07:00) 23. tamsulosin 0.4 mg oral cp24 1 cap once daily (Last dose: 05/24/2016 07:00) 24. doxycycline hyclate 100 mg Oral cap 1 cap every 8 hours (Last dose: 05/24/2016 07:00) - PMHx: ALS; CHF; diabetes - IDDM; Hypercholesterolemia; hyperlipidemia; Hypertension; Hypothyroidism; neuropathy; - PSHx: Cardiac stents; CABG; Intestinal obstruction; Appendectomy; 3-cysts removed; Hernia repair; PEG Tube Insertion; - Social history: Smoking status: Patient states former smoker of tobacco. No barriers to communication noted, Speaks appropriately for age. - Family history: Not pertinent. - : The pt / caregiver states he / she is not on anticoagulants. Home medication list is obtained from the patient, Unable to Verify Home Med List with the patient / caregiver. - Exposure Risk Screening:: None identified. Vital Signs: 11:28 BP 174 / 101; Pulse 83; Resp 22 S; Temp 96.5(T); Pulse Ox 91% on 3% BiPAP; Weight 65.77 ml6 kg / 145 lbs (R); Height 5 ft. 8 in. (172.72 cm) (R); Pain 0/10; 12:34 BP 175 / 81 (auto/); ead 12:35 Pulse Ox 99% ; ead 12:49 BP 173 / 84 (auto/); ead 12:50 Pulse 78 MON; Pulse Ox 97% ; ead 13:04 BP 175 / 91 (auto/); ead 13:05 Pulse 79 MON; Pulse Ox 97% ; ead 13:19 BP 148 / 75 (auto/); ead 13:20 Pulse 63 MON; Pulse Ox 97% ; ead 13:34 BP 159 / 88 (auto/); ead 13:35 Pulse 78 MON; Pulse Ox 95% ; ead 13:49 BP 157 / 83 (auto/); ead 13:50 Pulse 63 MON; Pulse Ox 97% ; ead 14:04 BP 170 / 77 (auto/); ead 14:05 Pulse 65 MON; Pulse Ox 97% on BiPAP; ead 14:19 BP 162 / 86 (auto/); ead 14:20 Pulse 82 MON; Pulse Ox 98% ; ead 14:34 BP 157 / 82 (auto/); ead 14:35 Pulse 84 MON; Pulse Ox 97% ; ead 14:49 BP 156 / 84 (auto/); ead 14:51 Pulse 84 MON; Pulse Ox 97% ; ead 15:04 BP 148 / 83 (auto/); ead 15:05 Pulse 83 MON; Pulse Ox 96% ; ead 15:19 BP 159 / 92 (auto/); ead 15:20 Pulse 84 MON; Pulse Ox 96% ; ead 15:34 BP 161 / 85 (auto/); ead 15:35 Pulse 84 MON; Pulse Ox 96% ; ead 15:49 BP 156 / 91 (auto/); ead 15:50 Pulse 85 MON; Pulse Ox 97% ; ead 16:04 BP 151 / 89 (auto/); ead 16:05 Pulse 85 MON; Resp 20; Pulse Ox 97% on BiPAP; ead 16:19 BP 149 / 79 (auto/); ead 16:20 Pulse 84 MON; Pulse Ox 97% ; ead 16:34 BP 148 / 75 (auto/); ead 16:35 Pulse 85 MON; Pulse Ox 97% ; ead 16:49 BP 151 / 102 (auto/); ead 16:50 Pulse 86 MON; Pulse Ox 94% ; ead 17:04 BP 160 / 87 (auto/); ead 17:05 Pulse 82 MON; Pulse Ox 95% ; ead 17:19 BP 150 / 88 (auto/); ead 17:20 Pulse 88 MON; Pulse Ox 97% ; ead 17:34 BP 153 / 78 (auto/); ead 17:35 Pulse 88 MON; Pulse Ox 97% ; ead 17:49 BP 150 / 83 (auto/); ead 17:50 Pulse 87 MON; Resp 20; Pulse Ox 96% ; ead 18:04 BP 130 / 74 (auto/); ead 18:05 Pulse 87 MON; Pulse Ox 97% ; ead 18:19 BP 132 / 76 (auto/); ead 18:20 Pulse 86 MON; Pulse Ox 97% ; ead 18:34 BP 132 / 77 (auto/); ead 18:35 Pulse 86 MON; Pulse Ox 97% ; ead 18:49 BP 151 / 76 (auto/); ead 18:50 Pulse 88 MON; Pulse Ox 97% ; ead 19:04 BP 162 / 78 (auto/); ead 19:05 Pulse 89 MON; Resp 22; Pulse Ox 97% ; ead 19:17 BP 162 / 78; Pulse 90; Resp 30; Temp 98.1(TE); Pulse Ox 96% on 35% BiPAP; Pain 0/10; nn1 19:42 BP 151 / 87; Pulse 88; Resp 30; Pulse Ox 98% on Non-rebreather mask; Weight 108.86 kg / jlm 240 lbs; Height 5 ft. 8 in. (172.72 cm); Pain 10/10; 19:42 Body Mass Index 36.49 (108.86 kg, 172.72 cm) [facility] MDM: 11:50 -Blood Culture (Adults Only), peripheral from different site, or from device/port/PICC ml6 etc. if present ordered. 11:50 Equine Pharmacology Technician/Pulse Ox/q 15 min VS ordered. ml6 11:50 Large bore IV x 2 ordered. ml6 11:51 Type & Screen Ordered. EDMS 11:51 -Arterial Blood Gas Ordered. EDMS 11:51 Amylase Ordered. EDMS 11:51 C Reactive Protein Ordered. EDMS 11:51 CBC with Diff Ordered. EDMS 11:51 Lactic Acid ([place] tube on ice) Ordered. EDMS 11:51 Liver Profile Ordered. EDMS 11:51 MED Profile Ordered. EDMS 11:51 PT/INR Ordered. EDMS 11:51 PTT Ordered. EDMS 11:51 Urinalysis Ordered. EDMS 11:51 -Blood Culture Ordered. EDMS 11:51 Urine Culture Ordered. EDMS 11:51 Chest, 1 View Ordered. EDMS 11:52 ECG WITH READING ER PHYS+CARDIAG ordered. EDMS 11:52 Cardiac Marker Panel Ordered. EDMS 11:54 Albuterol 5 mg Nebulizer once ordered. ml 11:54 Albuterol-Ipratropium 3 ml Inhalation once ordered. ml 11:54 Call Respiratory ordered. ml 11:54 Solu-MEDROL 125 mg IVP once ordered. ml 11:55 Call Respiratory ordered. ml 11:56 -Arterial Blood Gas Ordered. EDMS 11:58 Call Respiratory complete. jlf 11:58 Call Respiratory complete. jlf 12:46 -Arterial Blood Gas Reviewed. ml 12:46 CBC with Diff Reviewed. ml 12:46 MED Profile Reviewed. ml 12:46 Cardiac Marker Panel Reviewed. ml 12:46 Amylase Reviewed. ml 12:46 C Reactive Protein Reviewed. ml 12:46 Liver Profile Reviewed. ml 12:46 PT/INR Reviewed. ml 12:46 PTT Reviewed. ml 12:46 NS 0.9% 1000 ml IV at 100 mL/hr continuous ordered. ml 13:10 -Blood Culture (Adults Only), peripheral from different site, or from device/port/PICC deg etc. if present complete. 13:12 BLOOD CULTURES Ordered. EDMS 14:26 Financial registration complete. lg 14:41 [facility] [place] Payment Agreement was scanned into Segment and attached to record. lg 15:16 CONSISTENT CARBOHYDRATES ordered. EDMS 15:17 BIPAP INPATIENT ordered. EDMS 15:18 Admission / Observation Status ordered. EDMS 17:01 Misc. Nursing Order ordered. ml 17:54 vancomycin (loading dose for pt. wt. 60-69kg) 1500 mg IVPB once ordered. ml 19:32 CBC WITH DIFFERENTIAL Ordered. EDMS 19:32 COMPLETE COMPHRENSIVE METABOLI Ordered. EDMS Administered Medications: 12:00 Drug: Albuterol 5 mg [albuterol sulfate 2.5 mg/0.5 mL solution for nebulization (1 mL)] cs15 Route: Nebulizer; 12:00 Drug: Albuterol-Ipratropium 3 ml [ipratropium-albuterol 0.5 mg-3 mg(2.5 mg base)/3 mL cs15 nebulization soln (3 mL)] Route: Inhalation; 12:15 Drug: Solu-MEDROL 125 mg [Solu-Medrol 500 mg intravenous solution (125 mg)] Route: IVP; ead Site: left antecubital; 13:34 Drug: NS 0.9% 1000 ml [sodium chloride 0.9 % intravenous solution] Route: IV; Rate: 100 ead mL/hr; Site: left antecubital; 19:14 Drug: vancomycin (loading dose for pt. wt. 60-69kg) 1500 mg [vancomycin 1,000 mg ead intravenous injection] {Note: per pharmacy dilue 1,500 mg in 500 ml D%. infuse over 2 horus.} Route: IVPB; Site: right hand; Critical Care Time: 18:04 Critical care time: Bedside Care: 90 minutes, Consultation: 10 minutes. Total time: 100 ml minutes Signatures: Dispatcher [employer] EDWI Yung Avila MD MD ml Anais Blandon, Non Clinical Advisor Unit deg Shanice Flores, Reg Reg lg Carlito Chaudhry, RN RN ml6 Tatianna Alston, RN RN sls1 Thuy Land, WILDFIRE PREVENTION SPECIALIST WILDFIRE PREVENTION SPECIALIST teodoraf Tabatha Morgan RN RN eaRupesh Almaraz RN RN sa Shelton, Caleb RT [id number] The chart was reviewed and I authenticate all verbal orders and agree with the evaluation and treatment provided.Attachments: 14:41 [facility] Payment Agreement lg MTDD
--- NOTE | 2016-05-24 20:47 | EDDOCDS ---
Nurse's Notes [facility] Name: Talha Major Age: 66 yrs Sex: Male : 1950 Arrival Date: 05/24/2016 Time: 11:26 Bed Admit Hold Private MD: Cornelia Diagnosis: Respiratory failure, unspecified;Cystitis Presentation: 05/24 11:42 Presenting complaint: Child states: states being treated for UTI, states increased ml6 urgency and increased SOB, states unable to come off of home Bipap x 1 week. Adult Sepsis Screening: The patient does not have new or worsening altered mentation. Patient's respiratory rate is less than 22. Systolic blood pressure is greater than 100. Patient has a qSOFA score of 0- Negative Sepsis Screen. Suicide/Homicide risk assessment- the patient denies having any suicidal and/or homicidal ideations and does not present with any other emotional, behavioral or mental health complaints. 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 Transition of care: patient was not received from another setting of care. 11:42 Acuity: ZOILA Level 1 ml6 11:42 Method Of Arrival: Walkin/Carried/Asstd ml6 11:42 Acuity: ZOILA Level 2 ml6 Triage Assessment: 11:48 General: Appears distressed, Behavior is anxious, cooperative. Pain: Denies pain. ml6 Neurological: No deficits noted. Cardiovascular: No deficits noted. Capillary refill < 3 seconds is brisk in bilateral fingers toes. Respiratory: Airway is patent Respiratory effort is even, unlabored, Respiratory pattern is regular, symmetrical, Breath sounds are diminished bilaterally. Reports shortness of breath at rest the patient has severe shortness of breath. GI: No deficits noted. Historical: - Allergies: Niacinflush, itching, burning; - Home Meds: 1. allopurinol 100 mg Oral tab 1 tab 2 times per day (Last dose: 05/24/2016 07:00) 2. amlodipine 10 mg Oral tab 1 tab once daily (Last dose: 05/24/2016 07:00) 3. aspirin 81 mg Oral TbEC 1 tab once daily (Last dose: 05/24/2016 07:00) 4. atorvastatin 80 mg oral tab 1 tab once daily (Last dose: 05/24/2016 07:00) 5. Benadryl 25 mg Oral cap as needed (Last dose: Unknown) 6. bupropion HCl 150 mg Oral TbER 1 tab once daily (Last dose: 05/24/2016 07:00) 7. cetirizine 10 mg oral tab 1 tab once daily (Last dose: 05/24/2016 07:00) 8. cholecalciferol 1000 units twice a day (Last dose: 05/24/2016 07:00) 9. Dulcolax (bisacodyl) 5 mg Oral TbEC 1 tab as needed (Last dose: 05/24/2016 07:00) 10. fenofibrate 135mg oral tab once daily (Last dose: 05/24/2016 07:00) 11. folic acid 1 mg Oral tab 1 tab once daily (Last dose: 05/24/2016 07:00) 12. furosemide 40 mg Oral tab 20 mg once daily (Last dose: 05/24/2016 07:00) 13. Lantus 100 unit/mL Sub-Q soln 20 unit twice a day morning and night (Last dose: 05/24/2016 07:00) 14. levothyroxine 75 mcg Oral tab once daily (Last dose: 05/24/2016 07:00) 15. magnesium oxide 400 mg Oral tab 400 mg daily (Last dose: 05/24/2016 07:00) 16. metformin 1,000 mg Oral tab 1 tab 2 times per day (Last dose: 05/24/2016 07:00) 17. metoclopramide HCl 10 mg Oral tab 1 tab 4 times per day (Last dose: 05/24/2016 07:00) 18. metoprolol tartrate 25 mg Oral tab 1 tab 2 times per day (Last dose: 05/24/2016 07:00) 19. nitroglycerin 0.4 mg SL subl 1 tab every 5 minutes spray (Last dose: Unknown) 20. Novolog 100 unit/mL Sub-Q soln sliding scale before meals (Last dose: 05/24/2016 07:00) 21. omega-3 fatty acids 1,000 mg oral cap daily (Last dose: 05/24/2016 07:00) 22. ondansetron HCl 4 mg Oral tab as needed (Last dose: 05/24/2016 07:00) 23. tamsulosin 0.4 mg oral cp24 1 cap once daily (Last dose: 05/24/2016 07:00) 24. doxycycline hyclate 100 mg Oral cap 1 cap every 8 hours (Last dose: 05/24/2016 07:00) - PMHx: ALS; CHF; diabetes - IDDM; Hypercholesterolemia; hyperlipidemia; Hypertension; Hypothyroidism; neuropathy; - PSHx: Cardiac stents; CABG; Intestinal obstruction; Appendectomy; 3-cysts removed; Hernia repair; PEG Tube Insertion; - Social history: Smoking status: Patient states former smoker of tobacco. No barriers to communication noted, Speaks appropriately for age. - Family history: Not pertinent. - : The pt / caregiver states he / she is not on anticoagulants. Home medication list is obtained from the patient, Unable to Verify Home Med List with the patient / caregiver. - Exposure Risk Screening:: None identified. Screenin:12 Screening information is obtained from the patient, family members. Fall risk: No risks nn1 identified. Assistance ADL's: Requires assistance with meal preparation, this assistance is provided by family members, Home Health Aides, bathing, assistance is provided by family members, Home Health Aides, dressing, assistance is provided by family members, Home Health Aides, toileting, assistance is provided by family members, Home Health Aides, ambulation, assistance is provided by family members, Home Health Aides, housework, assistance is provided by family members, Home Health Aides, medication administration, assistance is provided by family members. Abuse/DV Screen: The patient / caregiver reports he/she is: not in a situation that causes fear, pain or injury. Nutritional screening: No deficits noted. Advance Directives: Currently, there is a health care proxy, Johanne and Renetta Forbespe, daughters . home support is adequate. Assessment: 13:15 General: 18 fr coude removed. New 18 fr coude inserted with blood tinged urine ead returned. minimal output. bladder irrigated with sterile water, clear yellow urine returned. . 13:27 General: Appears in no apparent distress, comfortable, Behavior is appropriate for age, ead cooperative, pleasant. Pain: Denies pain. Neurological: Level of Consciousness is awake, alert, obeys commands, Oriented to person, place, time. Respiratory: Airway is patent Respiratory effort is even, unlabored. : Patel in place. Derm: Skin is pink, warm & dry. 14:07 General: No output in newly inserted coude patel catheter, only drops visibile in ead drainage bag. bladder scan performed showing 97 ml. Pt denies pressure and urgency to void, reports feels much better than symptoms he was having at home. . 15:30 General: Appears in no apparent distress, comfortable, Behavior is appropriate for age, ead cooperative. Pain: Denies pain. Neurological: Level of Consciousness is awake, alert, Oriented to person, place, time. Cardiovascular: Rhythm is sinus rhythm. Respiratory: Airway is patent Respiratory effort is even, unlabored. Derm: Skin is pink, warm & dry. 16:30 General: Appears in no apparent distress, comfortable, Behavior is appropriate for age, ead cooperative. Neurological: No deficits noted. Respiratory: Airway is patent Respiratory effort is even, unlabored. Derm: Skin is pink, warm & dry. 17:30 General: Appears in no apparent distress, comfortable, Behavior is appropriate for age, ead cooperative. Pain: Denies pain. Neurological: Level of Consciousness is awake, alert, Oriented to person, place, time. Respiratory: Airway is patent Respiratory effort is even, unlabored. Derm: Skin is pink, warm & dry. 18:30 General: Appears in no apparent distress, comfortable, Behavior is appropriate for age, ead cooperative. Pain: Denies pain. Neurological: No deficits noted. Respiratory: Airway is patent Respiratory effort is even, unlabored. Derm: Skin is pink, warm & dry. 19:51 General: Patient unable to eat at this time due to SOB, patient continues to have BIPAP nn1 on Family at bedside. Patient comfortable, denies pain. . Pain: Denies pain. Neurological: Level of Consciousness is awake, alert, Oriented to person, place, time. Respiratory: Airway is patent Respiratory effort is even, labored. Derm: Skin is pink, warm & dry. 20:37 General: Appears in no apparent distress, comfortable, Behavior is appropriate for age, nn1 cooperative. Pain: Denies pain. Neurological: No deficits noted. Respiratory: Airway is patent Respiratory effort is even, labored. Derm: Skin is pink, warm & dry. 20:41 General: Vanco infusing per orders. Patient taken to PCU with BIPAP and RT. . nn1 Vital Signs: 11:28 BP 174 / 101; Pulse 83; Resp 22 S; Temp 96.5(T); Pulse Ox 91% on 3% BiPAP; Weight 65.77 ml6 kg (R); Height 5 ft. 8 in. (172.72 cm) (R); Pain 0/10; 12:34 BP 175 / 81 (auto/); ead 12:35 Pulse Ox 99% ; ead 12:49 BP 173 / 84 (auto/); ead 12:50 Pulse 78 MON; Pulse Ox 97% ; ead 13:04 BP 175 / 91 (auto/); ead 13:05 Pulse 79 MON; Pulse Ox 97% ; ead 13:19 BP 148 / 75 (auto/); ead 13:20 Pulse 63 MON; Pulse Ox 97% ; ead 13:34 BP 159 / 88 (auto/); ead 13:35 Pulse 78 MON; Pulse Ox 95% ; ead 13:49 BP 157 / 83 (auto/); ead 13:50 Pulse 63 MON; Pulse Ox 97% ; ead 14:04 BP 170 / 77 (auto/); ead 14:05 Pulse 65 MON; Pulse Ox 97% on BiPAP; ead 14:19 BP 162 / 86 (auto/); ead 14:20 Pulse 82 MON; Pulse Ox 98% ; ead 14:34 BP 157 / 82 (auto/); ead 14:35 Pulse 84 MON; Pulse Ox 97% ; ead 14:49 BP 156 / 84 (auto/); ead 14:51 Pulse 84 MON; Pulse Ox 97% ; ead 15:04 BP 148 / 83 (auto/); ead 15:05 Pulse 83 MON; Pulse Ox 96% ; ead 15:19 BP 159 / 92 (auto/); ead 15:20 Pulse 84 MON; Pulse Ox 96% ; ead 15:34 BP 161 / 85 (auto/); ead 15:35 Pulse 84 MON; Pulse Ox 96% ; ead 15:49 BP 156 / 91 (auto/); ead 15:50 Pulse 85 MON; Pulse Ox 97% ; ead 16:04 BP 151 / 89 (auto/); ead 16:05 Pulse 85 MON; Resp 20; Pulse Ox 97% on BiPAP; ead 16:19 BP 149 / 79 (auto/); ead 16:20 Pulse 84 MON; Pulse Ox 97% ; ead 16:34 BP 148 / 75 (auto/); ead 16:35 Pulse 85 MON; Pulse Ox 97% ; ead 16:49 BP 151 / 102 (auto/); ead 16:50 Pulse 86 MON; Pulse Ox 94% ; ead 17:04 BP 160 / 87 (auto/); ead 17:05 Pulse 82 MON; Pulse Ox 95% ; ead 17:19 BP 150 / 88 (auto/); ead 17:20 Pulse 88 MON; Pulse Ox 97% ; ead 17:34 BP 153 / 78 (auto/); ead 17:35 Pulse 88 MON; Pulse Ox 97% ; ead 17:49 BP 150 / 83 (auto/); ead 17:50 Pulse 87 MON; Resp 20; Pulse Ox 96% ; ead 18:04 BP 130 / 74 (auto/); ead 18:05 Pulse 87 MON; Pulse Ox 97% ; ead 18:19 BP 132 / 76 (auto/); ead 18:20 Pulse 86 MON; Pulse Ox 97% ; ead 18:34 BP 132 / 77 (auto/); ead 18:35 Pulse 86 MON; Pulse Ox 97% ; ead 18:49 BP 151 / 76 (auto/); ead 18:50 Pulse 88 MON; Pulse Ox 97% ; ead 19:04 BP 162 / 78 (auto/); ead 19:05 Pulse 89 MON; Resp 22; Pulse Ox 97% ; ead 19:17 BP 162 / 78; Pulse 90; Resp 30; Temp 98.1(TE); Pulse Ox 96% on 35% BiPAP; Pain 0/10; nn1 19:42 BP 151 / 87; Pulse 88; Resp 30; Pulse Ox 98% on Non-rebreather mask; Weight 108.86 kg; [facility] Height 5 ft. 8 in. (172.72 cm); Pain 10/10; 19:42 Body Mass Index 36.49 (108.86 kg, 172.72 cm) [facility] Vitals: 11:28 Log In Time: May 24, 2016 at 11:26. dd6 ED Course: 11:27 Patient visited by Donald Valdez PCA. dd6 11:27 Patient moved to Waiting dd6 11:28 Cornelia is Private Physician. dd6 11:31 Tabatha Morgan,RN is Primary Nurse. dd6 11:31 Patient moved to 2 dd6 11:38 Patient visited by Thuy Land PCA. jlf 11:39 Patient visited by Thuy Land PCA. jlf 11:39 Pt greeted and oriented to ED. Patient advised of names of staff involved in care, jlf location of call ardon, wait times and NPO status. Accompanied by Family Member, Patient has correct armband on for positive identification. Bed in low position. Side rails up X2. teletypesetter monitor on. Pulse ox on. NIBP on. 11:43 Yung Avila MD is Attending Physician. ml 11:43 Patient visited by Yung Avila MD. ml 11:44 Triage Initiated ml6 11:57 Patient visited by Thuy Land PCA. jlf 11:57 Patient visited by Thuy Land PCA. jlf 11:57 EKG done. (by ED staff). Reviewed by Yung Avila MD. jlf 12:08 CBC with Diff Sent. ead 12:08 -Blood Culture Sent. ead 12:08 Amylase Sent. ead 12:08 C Reactive Protein Sent. ead 12:08 Liver Profile Sent. ead 12:08 Lactic Acid ([place] tube on ice) Sent. ead 12:08 MED Profile Sent. ead 12:08 Type & Screen Sent. ead 12:08 PTT Sent. ead 12:08 PT/INR Sent. ead 12:08 Inserted saline lock: 20 gauge in left antecubital area and blood collected. The ead patient tolerated the procedure well. 12:26 -Arterial Blood Gas Sent. cs15 12:33 Patient visited by Tabatha Morgan RN. ead 12:33 Inserted saline lock: 20 gauge in right hand and blood collected. The patient tolerated ead the procedure well. 13:08 Patient visited by Thuy Land PCA. jlf 13:20 Coud inserted 18 Fr. Returned bloody urine. Urine specimen collected. Patient ead tolerated well. 13:27 The patient / caregiver is instructed regarding the plan of care and ED course. ead 13:32 Chest, 1 View Returned. EDMS 13:34 Patient visited by Tabatha Morgan,AKASH. ead 14:06 Patient visited by Tabatha Morgan,AKASH. ead 14:38 Pattie Sanon is Hospitalizing Provider. ml 14:41 [facility] Payment Agreement was scanned into [employer] and attached to record. lg 15:17 Patient moved to Admit Hold [id number] 16:04 Patient visited by Tabatha Morgan,AKASH. ead 17:50 EKG-ADULT Returned. EDMS 19:43 Patient visited by Laura Jon, Acquisition Analyst. jlm 19:51 Patient visited by John Lemus RN. nn1 19:57 BIPAP: FiO2: 30%, Full face fask. nn1 20:37 No procedures done that require assistance. nn1 Administered Medications: 12:00 Drug: Albuterol 5 mg [albuterol sulfate 2.5 mg/0.5 mL solution for nebulization (1 mL)] cs15 Route: Nebulizer; 12:00 Drug: Albuterol-Ipratropium 3 ml [ipratropium-albuterol 0.5 mg-3 mg(2.5 mg base)/3 mL cs15 nebulization soln (3 mL)] Route: Inhalation; 12:15 Drug: Solu-MEDROL 125 mg [Solu-Medrol 500 mg intravenous solution (125 mg)] Route: IVP; ead Site: left antecubital; 13:34 Drug: NS 0.9% 1000 ml [sodium chloride 0.9 % intravenous solution] Route: IV; Rate: 100 ead mL/hr; Site: left antecubital; 19:14 Drug: vancomycin (loading dose for pt. wt. 60-69kg) 1500 mg [vancomycin 1,000 mg ead intravenous injection] {Note: per pharmacy dilue 1,500 mg in 500 ml D%. infuse over 2 horus.} Route: IVPB; Site: right hand; Output: 14:18 Urine: 100.00ml (Patel); Total: 100.00ml. ead 16:04 Urine: 120.00ml (Patel); Total: 220.00ml. ead RT: 12:27 ABG's drawn from left radial artery allens test done and positive pressure held for 5 cs15 minutes no bleeding noted pressure bandage applied specimen sent pt. tolerated well. BiPAP 60% plus 8 L for nebulizer. Respiratory: Breath sounds are coarse bilaterally. Breath sounds are diminished bilaterally. Order Results: Lab Order: -Arterial Blood Gas; SPEC'05/24/16 12:24 Test: ABG pH (ARTERIAL); Value: 7.290; Range: 7.350-7.450; Abnormal: Below low normal; Units: UNITS; Status: F Test: ABG PARTIAL PRESSURE CO2; Value: 48.7; Range: 35.0-45.0; Abnormal: Above high normal; Units: mmHg; Status: F Test: ABG PARTIAL PRESSURE O2; Value: 138.8; Range: 75.0-100.0; Abnormal: Above high normal; Units: mmHg; Status: F Test: ABG TOTAL CO2; Value: 24.4; Range: 23.0-31.0; Units: MEQ/L; Status: F Test: ABG HCO3; Value: 22.9; Range: 22.0-26.0; Units: MEQ/L; Status: F Test: ABG BASE EXCESS; Value: -4.0; Range: -2.0-2.0; Abnormal: Below low normal; Status: F Test: ABG STANDARD HCO3; Value: 21.2; Range: 22.0-26.0; Abnormal: Below low normal; Units: MEQ/L; Status: F Test: ABG O2 SATURATION; Value: 98.7; Range: 95.0-99.0; Units: %; Status: F Test: ABG DEVICE; Value: NASAL DEVI; Status: F Lab Order: Amylase; SPEC' 05/24/16 12:01 Test: AMYLASE; Value: 52; Range: 25-115; Units: U/L; Status: F Lab Order: C Reactive Protein; SPEC' 05/24/16 12:01 Test: C REACTIVE PROTEIN QUANTITATIV; Value: < 0.30; Range: 0.00-0.30; Units: MG/DL; Status: F Lab Order: CBC with Diff; SPEC05/24/16 12:01 Test: WHITE BLOOD COUNT; Value: 10.0; Range: 4.0-10.0; Units: K/mm3; Status: F Test: RED BLOOD COUNT; Value: 4.62; Range: 4.30-6.10; Units: M/mm3; Status: F Test: HEMOGLOBIN; Value: 14.1; Range: 14.0-18.0; Units: g/dl; Status: F Test: HEMATOCRIT; Value: 41.8; Range: 42.0-52.0; Abnormal: Below low normal; Units: %; Status: F Test: MEAN CORPUSCULAR VOLUME; Value: 90.5; Range: 80.0-96.0; Units: fl; Status: F Test: MEAN CORPUSCULAR HEMOGLOBIN; Value: 30.5; Range: 27.0-33.0; Units: pg; Status: F Test: MEAN CORPUSCULAR HGB CONC; Value: 33.7; Range: 32.0-36.5; Units: g/dl; Status: F Test: RED CELL DISTRIBUTION WIDTH; Value: 13.3; Range: 11.5-14.5; Units: %; Status: F Test: PLATELET COUNT, AUTOMATED; Value: 236; Range: 150-450; Units: k/mm3; Status: F Test: NEUTROPHILS %; Value: 81.8; Range: 36.0-66.0; Abnormal: Above high normal; Units: %; Status: F Test: LYMPH %; Value: 10.5; Range: 24.0-44.0; Abnormal: Below low normal; Units: %; Status: F Test: MONO %; Value: 5.3; Range: 0.0-5.0; Abnormal: Above high normal; Units: %; Status: F Test: EOS %; Value: 0.7; Range: 0.0-3.0; Units: %; Status: F Test: BASO %; Value: 0.7; Range: 0.0-1.0; Units: %; Status: F Test: LARGE UNSTAINED CELL %; Value: 0.9; Range: 0.0-4.0; Units: %; Status: F Test: NEUTROPHILS #; Value: 8.2; Range: 1.8-7.7; Abnormal: Above high normal; Units: K/mm3; Status: F Test: LYMPH #; Value: 1.1; Range: 1.5-4.5; Abnormal: Below low normal; Units: K/mm3; Status: F Test: MONO #; Value: 0.5; Range: 0.0-0.8; Units: K/mm3; Status: F Test: EOS #; Value: 0.1; Range: 0.0-0.50; Units: K/mm3; Status: F Test: BASO #; Value: 0.1; Range: 0.0-0.2; Units: K/mm3; Status: F Test: LARGE UNSTAINED CELL #; Value: 0.1; Range: 0.0-0.4; Units: K/mm3; Status: F Lab Order: Lactic Acid (Damico tube on ice); SPEC'05/24/16 12:01 Test: LACTIC ACID LEVEL, LACTATE; Value: 1.2; Range: 0.4-2.0; Units: MMOL/L; Status: F Lab Order: Liver Profile; SPEC05/24/16 12:01 Test: AST/SGOT; Value: 20; Range: 15-37; Units: U/L; Status: F Test: ALT/SGPT; Value: 32; Range: 12-78; Units: U/L; Status: F Test: ALKALINE PHOSPHATASE; Value: 55; Range: 45-117; Units: U/L; Status: F Test: BILIRUBIN,TOTAL; Value: 0.6; Range: 0.2-1.0; Units: MG/DL; Status: F Test: BILIRUBIN,DIRECT; Value: 0.1; Range: 0.0-0.2; Units: MG/DL; Status: F Test: TOTAL PROTEIN; Value: 7.5; Range: 6.4-8.2; Units: GM/DL; Status: F Test: ALBUMIN; Value: 3.8; Range: 3.2-5.2; Units: GM/DL; Status: F Test: ALBUMIN/GLOBULIN RATIO; Value: 1.03; Range: 1.00-1.93; Status: F Lab Order: MED Profile; SPEC'05/24/16 12:01 Test: GLUCOSE, FASTING; Value: 133; Range: 80-110; Abnormal: Above high normal; Units: MG/DL; Status: F Test: BLOOD UREA NITROGEN; Value: 20; Range: 7-18; Abnormal: Above high normal; Units: MG/DL; Status: F Test: CREATININE FOR GFR; Value: 0.95; Range: 0.70-1.30; Units: MG/DL; Status: F Test: GLOMERULAR FILTRATION RATE; Value: > 60.0; Range: >49; Status: F Test: SODIUM LEVEL; Value: 142; Range: 136-145; Units: MEQ/L; Status: F Test: POTASSIUM SERUM; Value: 4.0; Range: 3.5-5.1; Units: MEQ/L; Status: F Test: CHLORIDE LEVEL; Value: 105; Range: 98-107; Units: MEQ/L; Status: F Test: CARBON DIOXIDE LEVEL; Value: 30; Range: 21-32; Units: MEQ/L; Status: F Test: ANION GAP; Value: 7; Range: 8-16; Abnormal: Below low normal; Units: MEQ/L; Status: F Test: CALCIUM LEVEL; Value: 9.5; Range: 8.8-10.2; Units: MG/DL; Status: F Test Note: ; Units are mL/min/1.73 m2 Chronic Kidney Disease Staging per NKF: Stage I & II GFR >=60 Normal to Mildly Decreased Stage III GFR 30-59 Moderately Decreased Stage IV GFR 15-29 Severely Decreased Stage V GFR <15 Very Little GFR Left ESRD GFR <15 on EMTS Lab Order: PT/INR; SPEC' 05/24/16 12:01 Test: PROTHROMBIN TIME; Value: 13.7; Range: 12.3-14.5; Units: SECONDS; Status: F Test: INR; Value: 1.04; Status: F Test Note: ; THERAPUTIC HUMAN INR VALUES INDICATIONS NORMAL RANGES PROPHYLAXIS/TREATMENT OF: VENOUS THROMBOSIS 2.0-3.0 PULMONARY EMBOLISM 2.0-3.0 PREVENTION OF SYSTEMIC EMBOLISM FROM: TISSUE HEART VALVES 2.0-3.0 ACUTE MYOCARDIAL INFARCTION 2.0-3.0 VALVULAR HEART DISEASE 2.0-3.0 ATRIAL FIBRILLATION 2.0-3.0 MECHANICAL VALVES(HIGH RISK) 2.5-3.5 RECURRENT MYOCARDIAL INFARCTION 2.5-3.5 Lab Order: PTT; SPEC05/24/16 12:01 Test: PARTIAL THROMBOPLASTIN TIME; Value: 27.5; Range: 26.6-37.1; Units: SECONDS; Status: F Lab Order: Type & Screen; SPEC05/24/16 12:01 Test: BLOOD TYPE; Value: O NEG; Status: F Test: AB SCREEN (INDIRECT URSULA)GEL; Value: NEGATIVE; Status: F Lab Order: Urinalysis; SPEC'M 05/24/16 12:31 Test: APPEARANCE, URINE; Value: CLOUDY; Range: CLEAR; Abnormal: Above high normal; Status: F Test: COLOR, URINE; Value: YELLOW; Range: YELLOW; Status: F Test: PH,URINE; Value: 6.0; Range: 5.0-9.0; Units: UNITS; Status: F Test: SPECIFIC GRAVITY URINE AUTO; Value: 1.016; Range: 1.002-1.035; Status: F Test: PROTEIN, URINE AUTO; Value: 2+; Range: NEGATIVE; Abnormal: Above high normal; Units: mg/dL; Status: F Test: GLUCOSE, URINE (UA) AUTO; Value: 1+; Range: NEGATIVE; Abnormal: Above high normal; Units: mg/dL; Status: F Test: KETONE, URINE AUTO; Value: TRACE; Range: NEGATIVE; Abnormal: Above high normal; Units: mg/dL; Status: F Test: UROBILINOGEN, URINE AUTO; Value: 0.2; Range: 0.0-2.0; Units: mg/dL; Status: F Test: BILIRUBIN, URINE AUTO; Value: NEGATIVE; Range: NEGATIVE; Status: F Test: NITRITE, URINE AUTO; Value: POSITIVE; Range: NEGATIVE; Status: F Test: LEUKOCYTE ESTERASE, URINE AUTO; Value: 3+; Range: NEGATIVE; Abnormal: Above high normal; Status: F Test: BLOOD, URINE BLOOD; Value: 3+; Range: NEGATIVE; Abnormal: Above high normal; Status: F Test: WBC, URINE AUTO; Value: 121; Range: 0-3; Abnormal: Above high normal; Units: /HPF; Status: F Test: RBC, URINE AUTO; Value: TNTC; Range: 0-3; Abnormal: Above high normal; Units: /HPF; Status: F Test: BACTERIA, URINE AUTO; Value: 1+; Range: NEGATIVE; Abnormal: Above high normal; Status: F Test: SQUAMOUS EPITHELIAL CELL UR AU; Value: 1; Range: 0-6; Units: /HPF; Status: F Test: MUCUS, URINE; Value: SMALL; Range: NEGATIVE; Status: F Test: HYALINE CAST, URINE AUTO; Value: 0; Range: 0-1; Units: /LPF; Status: F Test: AMORPHOUS SEDIMENT; Value: SMALL; Range: NEGATIVE; Abnormal: Above high normal; Status: F Lab Order: Cardiac Marker Panel; SPEC'M 05/24/16 12:01 Test: CPK CREATINE PHOSPHOKINASE; Value: 46; Range: 39-308; Units: U/L; Status: F Test: CK-MB VALUE MASS; Value: 4.3; Range: 0.0-3.6; Abnormal: Above high normal; Units: NG/ML; Status: F Test: MB/CK RELATIVE INDEX; Value: 9.34; Range: < OR =4; Abnormal: Above high normal; Status: F Test: TROPONIN I; Value: < 0.02; Range: < 0.10; Units: NG/ML; Status: F Test Note: ; DIAGNOSIS CRITERIA MMB ng/ml Relative Index (RI) NON-AMI < or = 5 N/A DAMICO ZONE > 5 < or = 4 AMI > 5 > 4 Radiology Order: Chest, 1 View Test: Chest, 1 View REASON FOR EXAMINATION: Shortness of Breath; Portable chest x-ray: Single view.; ; History: Shortness of breath.; ; Findings: Oxygen delivery tubing and EKG monitoring electrodes are seen. Median; sternotomy wires are noted. Mild cardiomegaly is again noted unchanged from the; comparison study of February 03, 2016. The lungs are well inflated and clear.; Pleural angles are sharp. Pulmonary vasculature is not increased.; ; Impression:; ; Mild cardiomegaly status post prior sternotomy. 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 20:36 Discharge Assessment: Patient awake, alert and oriented x 3. No cognitive and/or nn1 functional deficits noted. Patient verbalized understanding of disposition instructions. patient administered narcotics - no. The following High Risk Discharge criteria are identified: None. Admitted to PCU accompanied by nurse, accompanied by tech, family with patient, via stretcher, with oxygen, on monitor, with chart. Condition: unchanged. Admission hand-off: Report Faxed Fax receipt verified by AKASH Workman . Property :Personal belongings accompany Pt. 20:37 No special radiology studies were completed. nn1 20:47 [facility] ED. [facility] Signatures: Dispatcher [employer] EDMS Yung Avila MD MD ml Ganter, LoriLee, Reg Reg lg Donald Valdez, OFFICER CAPTAIN OFFICER CAPTAIN dd6 Carlito Chaudhry, RN RN ml6 Tatianna Alston, RN RN sls1 Meme Feliciano,RN RN [id number] Thuy Land, OFFICER CAPTAIN OFFICER CAPTAIN jlf Tabatha Morgan,RN RN Laura Chino, Acquisition Analyst Unit John Cassidy,RN RN nn1 Aj Adamson,RT RT cs15 Corrections: (The following items were deleted from the chart) 11:55 11:28 BP 174 / 101; Pulse 83bpm; Resp 22bpm; Spontaneous; Pulse Ox 91% 3 lpm Nasal ml6 Cannula; Temp 96.5F Tympanic; 65.77 kg Reported; Height 5 ft. 8 in. Reported; BMI: 22.0; dd6 MTDD
[2016-05-24 21:10] VITALS: BP 156/70
--- NOTE | 2016-05-24 21:11 | PHACANCOPD ---
PHARMACY VANCOMYCIN DOSING Pt Demographics Demographics Patient Age:66 , Weight: , Gender: male Adjusted Body Weight Date: 05/24/16, Adjusted Body Weight: Kg Vancomycin Vancomycin indication: UTI Vancomycin Target Ranges: 15-20 mcg/ml Vancomycin Load Y/N: Yes Load Dose Date Time Vancomycin Load Dose: 1500mg Date: 05/24/16 Time: 1900 Vancomycin Dose Date: 05/24/16. Current Vancomycin Dose: [1g IV Q12H] Intermittent Dosing?: No Labs Labs Item Value Date Time White Blood Count 10.0 K/mm3 05/24/16 1201 Creatinine 0.95 MG/DL 05/24/16 1201 Micro Microbiology 05/24/16 Blood Culture, Received Pending 05/24/16 Blood Culture, Received Pending 05/24/16 Urine Culture, Received Pending Creatinine Clearance Date:05/24/16. Estimated Creatinine Clearance: ~[72 ml/min]. Pending Labs Vancomycin trough scheduled 05/26/16 @ 0600 Assessment and Plan Maintaining Current Dose?: Yes Reason for dose change: No Dose Change Pharmacist Note Pharmacist Note Date: 05/24/16. Pharmacist note: Day #1 vancomycin initiated with a 1500 mg loading dose, followed by a maintenance regimen of 1g IV Q12H for the treatment of a complicated UTI - aiming for a goal trough of 15-20 mcg/ml. WBC is currently WNL. Previous UC grew staph epi sensitive to vanco, and current urinalysis is remarkable. No PMH of MRSA or vanco use here at [facility]. All cultures are currently pending. A vanco trough has been scheduled 05/26/16 @ 0600. We will continue to monitor and make adjustments as needed. BRIE POLLOCK PHARMACY May 24, 2016 21:11
[2016-05-24] MEDS ORDERED: ANALGESIC BALM CRM 120 GM TOP PRN (22:00)
[2016-05-24] MEDS: VITAMIN D 1,000 INTERNATIONAL UNITS TABLET PO SCH (23:15)
[2016-05-24] MEDS: LEVEMIR (INSULIN DETEMIR) 1 UNITS/0.01ML SC SCH (23:16)
[2016-05-24] MEDS: OMEGA-3 1050MG CAPSULE PO SCH (23:17)
[2016-05-24] MEDS: ALLOPURINOL 100 MG TAB PO SCH (23:17)
[2016-05-24] MEDS: ATORVASTATIN 20 MG TAB PO SCH (23:17)
[2016-05-24] MEDS: HumaLOG INSULIN (NovoLOG) PER UNIT SC SCH (23:17)
[2016-05-24] MEDS: METOPROLOL TART 50 MG TAB PO SCH (23:17)
[2016-05-24] MEDS: TAMSULOSIN 0.4 MG CAP PO SCH (23:18)
[2016-05-24 23:59] VITALS: BP 146/68
[2016-05-25] VITALS (7 sets, daily range): BP systolic 84–116; BP diastolic 50–62
[2016-05-25] MEDS: IPRATROPIUM 0.5MG/ALBUTEROL 2.5MG INH SOL UD 3ML (DUONEB)(J7620) NEB PRN ×2 (00:08→03:25)
[2016-05-25] MEDS: FLUTICASONE PROP 0.05% NASAL SPRAY 16 GM (FLONASE) SCH ×3 (00:17→21:07)
[2016-05-25 05:03] LABS: ABG BASE EXCESS -0.5 (-2.0-2.0); ABG HCO3 25.1 MEQ/L (22.0-26.0); ABG PARTIAL PRESSURE CO2 44.7 mmHg (35.0-45.0); ABG PARTIAL PRESSURE O2 91.8 mmHg (75.0-100.0); ABG STANDARD HCO3 24.1 MEQ/L (22.0-26.0); ABG TOTAL CO2 26.5 MEQ/L (23.0-31.0); ABG pH (ARTERIAL) 7.367 UNITS (7.350-7.450)
[2016-05-25] MEDS: VANCOMYCIN HCL 1,000 MG, VIAL MATE ADAPTER 1 EACH in D5W 250 ML IV SCH ×2 (06:10→18:12)
[2016-05-25] MEDS: LEVOTHYROXINE 0.075 MG TAB (75 MCG) PO SCH (06:10)
[2016-05-25 06:12] LABS: BASO % 0.3 % (0.0-1.0); EOS # 0.1 K/mm3 (0.0-0.50); EOS % 0.9 % (0.0-3.0); LARGE UNSTAINED CELL # 0.2 K/mm3 (0.0-0.4); LYMPH # 2.2 K/mm3 (1.5-4.5); LYMPH % 24.9 % (24.0-44.0); MEAN CORPUSCULAR HEMOGLOBIN 30.2 pg (27.0-33.0); MEAN CORPUSCULAR HGB CONC 33.6 g/dl (32.0-36.5); MEAN CORPUSCULAR VOLUME 89.9 fl (80.0-96.0); MONO # 0.7 K/mm3 (0.0-0.8); MONO % 8.1 % (0.0-5.0); NEUTROPHILS # 5.6 K/mm3 (1.8-7.7); NEUTROPHILS % 63.8 % (36.0-66.0); PLATELET COUNT, AUTOMATED 216 k/mm3 (150-450); RED CELL DISTRIBUTION WIDTH 13.4 % (11.5-14.5); WHITE BLOOD COUNT 8.8 K/mm3 (4.0-10.0)
[2016-05-25 06:32] LABS: ALBUMIN/GLOBULIN RATIO 1.11 (1.00-1.93); ALKALINE PHOSPHATASE 45 U/L (45-117); ALT/SGPT 23 U/L (12-78); ANION GAP 6 MEQ/L (8-16); AST/SGOT 17 U/L (15-37); BILIRUBIN,TOTAL 0.3 MG/DL (0.2-1.0); BLOOD UREA NITROGEN 24 MG/DL (7-18); CALCIUM LEVEL 9.1 MG/DL (8.8-10.2); CARBON DIOXIDE LEVEL 31 MEQ/L (21-32); CHLORIDE LEVEL 107 MEQ/L (98-107); CREATININE FOR GFR 1.07 MG/DL (0.70-1.30); GLOMERULAR FILTRATION RATE > 60.0 (>49); GLUCOSE, FASTING 90 MG/DL (80-110); POTASSIUM SERUM 4.2 MEQ/L (3.5-5.1); SODIUM LEVEL 144 MEQ/L (136-145); TOTAL PROTEIN 5.7 GM/DL (6.4-8.2)
[2016-05-25] MEDS: FORMOTEROL FUMARATE 20 MCG/2 ML INHALATION SOLUTION (PERFOROMIST) INH SCH ×2 (07:07→20:00)
[2016-05-25] MEDS: HumaLOG INSULIN (NovoLOG) PER UNIT SC SCH ×4 (07:30→21:05)
--- NOTE | 2016-05-25 08:20 | REP ---
Portable chest x-ray: Single view. History: Hypercapnia. Comparison chest x-ray May 24, 2016. Findings: EKG monitoring electrodes and oxygen delivery tubing are seen overlying the chest. The patient is status post median sternotomy. Heart size is borderline. Lungs are symmetrically aerated and free of infiltrate. Pleural angles are sharp. Pulmonary vasculature is not increased. Impression: Borderline heart size. No infiltrate seen. Prior sternotomy. Signed by Lionel Morel MD 05/25/2016 08:27 A
[2016-05-25] MEDS: FUROSEMIDE 20 MG TAB PO SCH (09:00)
[2016-05-25] MEDS: METOPROLOL TART 50 MG TAB PO SCH ×3 (09:00→21:05)
[2016-05-25] MEDS: FOLIC ACID 1 MG TAB PO SCH (09:07)
[2016-05-25] MEDS: LEVEMIR (INSULIN DETEMIR) 1 UNITS/0.01ML SC SCH ×2 (09:07→21:05)
[2016-05-25] MEDS: OMEGA-3 1050MG CAPSULE PO SCH ×2 (09:08→21:02)
[2016-05-25] MEDS: CETIRIZINE (ZyrTEC) 10 MG TAB PO SCH (09:08)
[2016-05-25] MEDS: ASPIRIN 81 MG ENTERIC TAB PO SCH (09:08)
[2016-05-25] MEDS: ALLOPURINOL 100 MG TAB PO SCH ×2 (09:08→21:03)
[2016-05-25] MEDS: MAGNESIUM OXIDE 400 MG TAB (MAG-OX) PO SCH (09:08)
[2016-05-25] MEDS: VITAMIN D 1,000 INTERNATIONAL UNITS TABLET PO SCH ×2 (09:08→21:03)
[2016-05-25] MEDS: MULTIVITAMINS/MINERALS THERAP 1 TAB PO SCH (09:10)
[2016-05-25] MEDS: buPROPion **SR TABLET** (ZYBAN) 150MG PO SCH (09:10)
[2016-05-25 09:53] LABS: ABG BASE EXCESS 3.2 (-2.0-2.0); ABG HCO3 28.3 MEQ/L (22.0-26.0); ABG PARTIAL PRESSURE CO2 45.3 mmHg (35.0-45.0); ABG PARTIAL PRESSURE O2 64.7 mmHg (75.0-100.0); ABG STANDARD HCO3 27.2 MEQ/L (22.0-26.0); ABG TOTAL CO2 29.7 MEQ/L (23.0-31.0); ABG pH (ARTERIAL) 7.414 UNITS (7.350-7.450)
--- NOTE | 2016-05-25 12:02 | IPNPDOC ---
Assessment/Plan Date Seen The patient was seen on 05/25/16. Problems Problems: (1) Acute on chronic respiratory failure with hypoxia and hypercapnia Status: Acute Problem Text: due to copd and neuromuscular disease from ALS. BIPAP setting were increased with improvement of ABG . will try to go back to home settings acute worsening due to worsening of postnasal drip and bouts of coughing (2) ALS (amyotrophic lateral sclerosis) Status: Chronic Response to Treatment: Stable (3) Restrictive airway disease Status: Chronic (4) Diastolic CHF Status: Chronic Response to Treatment: Stable (5) COPD (chronic obstructive pulmonary disease) with emphysema Status: Chronic Response to Treatment: Stable Problem Text: continue with home nbulizations (6) Diabetes Status: Chronic Problem Text: continue insulin (7) Hypertension Status: Chronic Problem Text: bp low this am will hold metoprolol and lasix. (8) CAD (coronary artery disease) Status: Chronic (9) Hypothyroid Status: Chronic (10) Thoracic vertebral fracture Status: Chronic (11) Urinary retention Status: Chronic Problem Text: has chronic indwelling patel (12) UTI (urinary tract infection) Status: Acute Problem Text: UA still very dirty urine culture pending . was on doxycycline at home for 5 days prior to coming to hospital. for staph in urine culture from 05/15/16 continue vanco for now. Plan / VTE VTE Prophylaxis Ordered?: Yes Subjective Review of Systems CC/HPI The patient is a 66-year-old male admitted with a reason for visit of UTI. Events since last encounter cough better today , post nasal drip improved, breathing at baseline. no chest pain , no abdominal pain , no nausea or vomiting or diarrhea. Objective Physical Examination General Exam: Positive: Alert, Cooperative, No Acute Distress Eye Exam: Positive: Conjunctiva & lids normal, EOMI, PERRLA, Negative: Sclera icteric ENT Exam: Positive: Atraumatic, Mucous membr. moist/pink, Pharynx Normal Neck Exam: Positive: Supple, Negative: JVD, thyromegaly Chest Exam: Positive: Diminished Heart Exam: Positive: Normal S1, Normal S2, Rate Normal, Regular Rhythm, Negative: Murmurs, Rubs Telemetry: Positive: No significant arrhythmia Abdomen Exam: Positive: Normal bowel sounds, Soft, Negative: Hepatospenomegaly, Tenderness Extremity Exam: Positive: Normal pulses, Negative: Clubbing, Cyanosis, Edema Vital Signs/I&O Vital Signs Date Time Temp Pulse Resp B/P Pulse Ox O2 Delivery O2 Flow Rate FiO2 05/25/16 11:41 BIPAP/CPAP 05/25/16 09:00 67 84/53 05/25/16 08:00 95.8 20 97 05/25/16 00:00 35 I&O- Last 24 Hours up to 6 AM 05/25/16 06:00 Intake Total 520 ml Output Total 625 ml Balance -105 ml Laboratory Data Labs 24H Laboratory Tests 2 05/24/16 12:01: Activated Partial Thromboplast Time 27.5, Aspartate Amino Transf (AST/SGOT) 20, Alanine Aminotransferase (ALT/SGPT) 32, Alkaline Phosphatase 55, Total Bilirubin 0.6, Direct Bilirubin 0.1, Albumin 3.8, Albumin/Globulin Ratio 1.03, Amylase Level 52, Anion Gap 7L, White Blood Count 10.0, Red Blood Count 4.62, Hemoglobin 14.1, Hematocrit 41.8L, Mean Corpuscular Volume 90.5, Mean Corpuscular Hemoglobin 30.5, Mean Corpuscular Hemoglobin Concent 33.7, Red Cell Distribution Width 13.3, Platelet Count 236, Neutrophils (%) (Auto) 81.8H, Lymphocytes (%) (Auto) 10.5L, Monocytes (%) (Auto) 5.3H, Eosinophils (%) (Auto) 0.7, Basophils (%) (Auto) 0.7, Neutrophils # (Auto) 8.2H, Lymphocytes # (Auto) 1.1L, Monocytes # (Auto) 0.5, Eosinophils # (Auto) 0.1, Basophils # (Auto) 0.1, C-Reactive Protein, Quantitative < 0.30, Calcium Level 9.5, Creatine Kinase MB 4.3H, Creatine Kinase MB Relative Index 9.34H, Glomerular Filtration Rate > 60.0 , Lactic Acid Level 1.2, Large Unclassified Cells # 0.1, Large Unclassified Cells % 0.9, Prothromb Time International Ratio 1.04, Prothrombin Time 13.7, Total Creatine Kinase 46, Total Protein 7.5, Troponin I < 0.02 05/24/16 12:24: Arterial Blood pH 7.290L, Arterial Blood Partial Pressure CO2 48.7H, Arterial Blood Partial Pressure O2 138.8H, Arterial Blood Total CO2 24.4, Arterial Blood HCO3 22.9, Arterial Blood Base Excess -4.0L, Arterial Blood Oxygen Saturation 98.7, Blood Gas Bicarbonate Standard 21.2L, Oxygen Delivery Device NASAL DEVI 05/24/16 12:31: Urine Amorphous Sediment SMALLH, Urine Appearance CLOUDYH, Urine Color YELLOW, Urine pH 6.0, Urine Specific [place]iler 1.016, Urine Protein 2+H, Urine Glucose (UA ) 1+H, Urine Ketones TRACEH, Urine Urobilinogen 0.2, Urine Bilirubin NEGATIVE, Urine Leukocyte Esterase 3+H, Urine Bacteria (Auto) 1+H, Urine Blood 3+H, Urine Calcium Carbonate Cryst(Auto) , Urine Calcium Oxalate Cryst (Auto) , Urine Calcium Phosphate Shruti (Auto) , Urine Cellular Casts , Urine Cystine Crystals , Urine Granular Casts (Auto) , Urine Hyaline Casts (Auto) 0, Urine Leucine Crystals , Urine Mucus (Auto) SMALL, Urine Nitrite POSITIVE, Urine Oval Fat Bodies (Auto) , Urine RBC (Auto) TNTCH, Urine Renal Epithelial Cells , Urine Sperm (Auto) , Urine Squamous Epithelial Cells 1, Urine Transitional Epithelial Cells , Urine Trichomonas (Auto) , Urine Triple Phosphate Cryst (Auto) , Urine Tyrosine Crystals , Urine Uric Acid Crystals (Auto) , Urine WBC (Auto) 121H, Urine Waxy Casts (Auto) , Urine Yeast-Like Cells (Auto) 05/24/16 22:59: Bedside Glucose (Misc Panel) 261H 05/25/16 04:56: Arterial Blood pH 7.367, Arterial Blood Partial Pressure CO2 44.7, Arterial Blood Partial Pressure O2 91.8, Arterial Blood Total CO2 26.5, Arterial Blood HCO3 25.1, Arterial Blood Base Excess -0.5, Arterial Blood Oxygen Saturation 96.8, Blood Gas Bicarbonate Standard 24.1 05/25/16 05:47: Blood Urea Nitrogen 24H, Creatinine 1.07, Sodium Level 144, Potassium Level 4.2 , Chloride Level 107, Carbon Dioxide Level 31, Calcium Level 9.1, Aspartate Amino Transf (AST/SGOT) 17, Alanine Aminotransferase (ALT/SGPT) 23, Alkaline Phosphatase 45, Total Bilirubin 0.3, Total Protein 5.7#L, Albumin 3.0#L, Albumin /Globulin Ratio 1.11, Anion Gap 6L, White Blood Count 8.8, Red Blood Count 3.99L , Hemoglobin 12.1#L, Hematocrit 35.9L, Mean Corpuscular Volume 89.9, Mean Corpuscular Hemoglobin 30.2, Mean Corpuscular Hemoglobin Concent 33.6, Red Cell Distribution Width 13.4, Platelet Count 216, Neutrophils (%) (Auto) 63.8, Lymphocytes (%) (Auto) 24.9, Monocytes (%) (Auto) 8.1H, Eosinophils (%) (Auto) 0.9, Basophils (%) (Auto) 0.3, Neutrophils # (Auto) 5.6, Lymphocytes # (Auto) 2.2, Monocytes # (Auto) 0.7, Eosinophils # (Auto) 0.1, Basophils # (Auto) 0.0, Glomerular Filtration Rate > 60.0, Large Unclassified Cells # 0.2, Large Unclassified Cells % 2.0 05/25/16 09:44: Arterial Blood pH 7.414, Arterial Blood Partial Pressure CO2 45.3H, Arterial Blood Partial Pressure O2 64.7L, Arterial Blood Total CO2 29.7, Arterial Blood HCO3 28.3H, Arterial Blood Base Excess 3.2H, Arterial Blood Oxygen Saturation 92.1L, Blood Gas Bicarbonate Standard 27.2H 05/25/16 11:36: Bedside Glucose (Misc Panel) 141H CBC/BMP Laboratory Tests 05/24/16 12:01 Red Blood Count 4.62, Mean Corpuscular Volume 90.5, Mean Corpuscular Hemoglobin 30.5, Mean Corpuscular Hemoglobin Concent 33.7, Red Cell Distribution Width 13.3 , Neutrophils (%) (Auto) 81.8 H, Lymphocytes (%) (Auto) 10.5 L, Monocytes (%) ( Auto) 5.3 H, Eosinophils (%) (Auto) 0.7, Basophils (%) (Auto) 0.7, Neutrophils # (Auto) 8.2 H, Lymphocytes # (Auto) 1.1 L, Monocytes # (Auto) 0.5, Eosinophils # (Auto) 0.1, Basophils # (Auto) 0.1 05/25/16 05:47 Red Blood Count 3.99 L, Mean Corpuscular Volume 89.9, Mean Corpuscular Hemoglobin 30.2, Mean Corpuscular Hemoglobin Concent 33.6, Red Cell Distribution Width 13.4, Neutrophils (%) (Auto) 63.8, Lymphocytes (%) (Auto) 24.9, Monocytes (%) (Auto) 8.1 H, Eosinophils (%) (Auto) 0.9, Basophils (%) ( Auto) 0.3, Neutrophils # (Auto) 5.6, Lymphocytes # (Auto) 2.2, Monocytes # (Auto ) 0.7, Eosinophils # (Auto) 0.1, Basophils # (Auto) 0.0, Calcium Level 9.1, Aspartate Amino Transf (AST/SGOT) 17, Alanine Aminotransferase (ALT/SGPT) 23, Alkaline Phosphatase 45, Total Bilirubin 0.3, Total Protein 5.7 #L, Albumin 3.0 #L FSBS Laboratory Tests Test 05/24/16 22:59 05/25/16 11:36 Range/Units Bedside Glucose (Misc Panel) 261 141 80-115 MG/DL Microbiology Microbiology 05/24/16 Blood Culture, Received Pending 05/24/16 Blood Culture, Received Pending 05/24/16 Urine Culture, Received Pending TIFFANIE KLEIN MD May 25, 2016 12:02
[2016-05-25 18:07] LABS: ABG HCO3 29.9 MEQ/L (22.0-26.0); ABG PARTIAL PRESSURE O2 108.4 mmHg (75.0-100.0); ABG STANDARD HCO3 28.1 MEQ/L (22.0-26.0); ABG TOTAL CO2 31.4 MEQ/L (23.0-31.0); ABG pH (ARTERIAL) 7.394 UNITS (7.350-7.450)
[2016-05-25] MEDS ORDERED: BISACODYL 5 MG TAB PO SCH (21:00)
[2016-05-25] MEDS ORDERED: BACLOFEN 10 MG TAB PO SCH (21:00)
[2016-05-25] MEDS: TAMSULOSIN 0.4 MG CAP PO SCH (21:02)
[2016-05-25] MEDS: ATORVASTATIN 20 MG TAB PO SCH (21:02)
[2016-05-26 04:00] VITALS: BP 136/63
[2016-05-26 06:03] LABS: BASO % 0.5 % (0.0-1.0); EOS # 0.1 K/mm3 (0.0-0.50); EOS % 2.2 % (0.0-3.0); LARGE UNSTAINED CELL # 0.1 K/mm3 (0.0-0.4); LARGE UNSTAINED CELL % 2.1 % (0.0-4.0); LYMPH # 1.6 K/mm3 (1.5-4.5); LYMPH % 34.4 % (24.0-44.0); MEAN CORPUSCULAR HEMOGLOBIN 30.2 pg (27.0-33.0); MEAN CORPUSCULAR HGB CONC 33.7 g/dl (32.0-36.5); MEAN CORPUSCULAR VOLUME 89.6 fl (80.0-96.0); MONO # 0.4 K/mm3 (0.0-0.8); MONO % 8.3 % (0.0-5.0); NEUTROPHILS # 2.4 K/mm3 (1.8-7.7); NEUTROPHILS % 52.4 % (36.0-66.0); PLATELET COUNT, AUTOMATED 125 k/mm3 (150-450); RED CELL DISTRIBUTION WIDTH 13.3 % (11.5-14.5); WHITE BLOOD COUNT 4.6 K/mm3 (4.0-10.0)
[2016-05-26] MEDS: VANCOMYCIN HCL 1,000 MG, VIAL MATE ADAPTER 1 EACH in D5W 250 ML IV SCH ×2 (06:18→18:24)
[2016-05-26] MEDS: LEVOTHYROXINE 0.075 MG TAB (75 MCG) PO SCH (06:18)
[2016-05-26 06:26] LABS: ALBUMIN 2.7 GM/DL (3.2-5.2); ALBUMIN/GLOBULIN RATIO 1.08 (1.00-1.93); ALKALINE PHOSPHATASE 66 U/L (45-117); ALT/SGPT 28 U/L (12-78); ANION GAP 6 MEQ/L (8-16); AST/SGOT 20 U/L (15-37); BILIRUBIN,TOTAL 0.2 MG/DL (0.2-1.0); BLOOD UREA NITROGEN 29 MG/DL (7-18); CALCIUM LEVEL 8.5 MG/DL (8.8-10.2); CARBON DIOXIDE LEVEL 31 MEQ/L (21-32); CHLORIDE LEVEL 110 MEQ/L (98-107); CREATININE FOR GFR 0.97 MG/DL (0.70-1.30); GLOMERULAR FILTRATION RATE > 60.0 (>49); GLUCOSE, FASTING 115 MG/DL (80-110); POTASSIUM SERUM 3.6 MEQ/L (3.5-5.1); SODIUM LEVEL 147 MEQ/L (136-145); TOTAL PROTEIN 5.2 GM/DL (6.4-8.2)
--- NOTE | 2016-05-26 07:10 | PHACANCOPD ---
PHARMACY VANCOMYCIN DOSING Pt Demographics Demographics Patient Age:66 , Weight:71.800 , Gender: male Adjusted Body Weight Date: 05/24/16, Adjusted Body Weight: Kg Vancomycin Vancomycin indication: UTI Vancomycin Target Ranges: 15-20 mcg/ml Vancomycin Load Y/N: Yes Load Dose Date Time Vancomycin Load Dose: 1500mg Date: 05/24/16 Time: 1900 Vancomycin Dose Date: 05/24/16. Current Vancomycin Dose: [1g IV Q12H] Intermittent Dosing?: No Labs Micro Microbiology 05/24/16 Blood Culture - Preliminary, Resulted No growth after 24 hours . All specim... 05/24/16 Blood Culture - Preliminary, Resulted No growth after 24 hours . All specim... 05/24/16 Urine Culture, Received Pending Creatinine Clearance Date:05/24/16. Estimated Creatinine Clearance: ~[72 ml/min]. Pending Labs 0 Assessment and Plan Maintaining Current Dose?: Yes Reason for dose change: No Dose Change Pharmacist Note Pharmacist Note Date: 05/26/16. Pharmacist note:Vancomycin trough drawm@5:34 reported as 19.2- Scr =0.97-will continue Vancomycin regimen of 1 gram iv [id number] continue to monitor SCR and levels Date: 05/24/16. Pharmacist note: Day #1 vancomycin initiated with a 1500 mg loading dose, followed by a maintenance regimen of 1g IV Q12H for the treatment of a complicated UTI - aiming for a goal trough of 15-20 mcg/ml. WBC is currently WNL. Previous UC grew staph epi sensitive to vanco, and current urinalysis is remarkable. No PMH of MRSA or vanco use here at [facility]. All cultures are currently pending. A vanco trough has been scheduled 05/26/16 @ 0600. We will continue to monitor and make adjustments as needed. KARIN MERINO PHARMACY May 26, 2016 07:10
[2016-05-26] MEDS: FORMOTEROL FUMARATE 20 MCG/2 ML INHALATION SOLUTION (PERFOROMIST) INH SCH ×2 (07:50→20:06)
[2016-05-26 08:00] VITALS: BP 134/64
[2016-05-26] MEDS: HumaLOG INSULIN (NovoLOG) PER UNIT SC SCH ×4 (08:00→20:56)
[2016-05-26] MEDS: LEVEMIR (INSULIN DETEMIR) 1 UNITS/0.01ML SC SCH ×2 (08:00→20:59)
[2016-05-26] MEDS: ASPIRIN 81 MG ENTERIC TAB PO SCH (08:01)
[2016-05-26] MEDS: MULTIVITAMINS/MINERALS THERAP 1 TAB PO SCH (08:01)
[2016-05-26] MEDS: FOLIC ACID 1 MG TAB PO SCH (08:01)
[2016-05-26] MEDS: VITAMIN D 1,000 INTERNATIONAL UNITS TABLET PO SCH ×2 (08:01→21:04)
[2016-05-26] MEDS: FLUTICASONE PROP 0.05% NASAL SPRAY 16 GM (FLONASE) SCH ×3 (08:01→21:05)
[2016-05-26] MEDS: OMEGA-3 1050MG CAPSULE PO SCH ×2 (08:01→21:03)
[2016-05-26] MEDS: CETIRIZINE (ZyrTEC) 10 MG TAB PO SCH (08:01)
[2016-05-26] MEDS: ALLOPURINOL 100 MG TAB PO SCH ×2 (08:01→21:03)
[2016-05-26] MEDS: MAGNESIUM OXIDE 400 MG TAB (MAG-OX) PO SCH (08:01)
[2016-05-26] MEDS: FUROSEMIDE 20 MG TAB PO SCH (08:01)
[2016-05-26] MEDS: buPROPion **SR TABLET** (ZYBAN) 150MG PO SCH (08:01)
[2016-05-26] MEDS: METOPROLOL TART 50 MG TAB PO SCH ×2 (08:10→21:04)
[2016-05-26 08:47] LABS: ABG BASE EXCESS 2.6 (-2.0-2.0); ABG HCO3 27.9 MEQ/L (22.0-26.0); ABG PARTIAL PRESSURE CO2 46.2 mmHg (35.0-45.0); ABG PARTIAL PRESSURE O2 100.1 mmHg (75.0-100.0); ABG STANDARD HCO3 26.8 MEQ/L (22.0-26.0); ABG TOTAL CO2 29.3 MEQ/L (23.0-31.0); ABG pH (ARTERIAL) 7.399 UNITS (7.350-7.450)
--- NOTE | 2016-05-26 08:58 | IPNPDOC ---
Assessment/Plan Date Seen The patient was seen on 05/26/16. Problems Problems: (1) UTI (urinary tract infection) due to urinary indwelling Patel catheter Status: Acute Problem Text: UA still very dirty urine culture pending . was on doxycycline at home for 5 days prior to coming to hospital. for staph in urine culture from 05/15/16 continue vanco for now. (2) Acute on chronic respiratory failure with hypoxia and hypercapnia Status: Resolved Problem Text: due to copd and neuromuscular disease from ALS. BIPAP setting were increased with improvement of ABG . Now back to home settings of 04/05 with good abgs. acute worsening due to worsening of postnasal drip and bouts of coughing (3) ALS (amyotrophic lateral sclerosis) Status: Chronic Response to Treatment: Stable (4) Restrictive airway disease Status: Chronic (5) Diastolic CHF Status: Chronic Response to Treatment: Stable (6) COPD (chronic obstructive pulmonary disease) with emphysema Status: Chronic Response to Treatment: Stable Problem Text: continue with home nbulizations (7) Diabetes Status: Chronic Problem Text: continue insulin (8) Hypertension Status: Chronic Problem Text: bp low this am will hold metoprolol and lasix. (9) CAD (coronary artery disease) Status: Chronic (10) Hypothyroid Status: Chronic (11) Thoracic vertebral fracture Status: Chronic (12) Urinary retention Status: Chronic Problem Text: has chronic indwelling patel Plan / VTE VTE Prophylaxis Ordered?: Yes Subjective Review of Systems CC/HPI The patient is a 66-year-old male admitted with a reason for visit of UTI. Events since last encounter no complaints overnight , still awaiting urine culture results. Objective Physical Examination General Exam: Positive: Alert, Cooperative, No Acute Distress Eye Exam: Positive: Conjunctiva & lids normal, EOMI, PERRLA, Negative: Sclera icteric ENT Exam: Positive: Atraumatic, Mucous membr. moist/pink, Pharynx Normal Neck Exam: Positive: Supple, Negative: JVD, thyromegaly Chest Exam: Positive: Diminished Heart Exam: Positive: Normal S1, Normal S2, Rate Normal, Regular Rhythm, Negative: Murmurs, Rubs Telemetry: Positive: No significant arrhythmia Abdomen Exam: Positive: Normal bowel sounds, Soft, Negative: Hepatospenomegaly, Tenderness Extremity Exam: Positive: Normal pulses, Negative: Clubbing, Cyanosis, Edema Vital Signs/I&O Vital Signs Date Time Temp Pulse Resp B/P Pulse Ox O2 Delivery O2 Flow Rate FiO2 05/26/16 08:10 78 134/64 05/26/16 08:00 97.4 20 93 NIPPV (BIPAP/CPAP) 05/25/16 15:21 35 I&O- Last 24 Hours up to 6 AM 05/26/16 06:00 Intake Total 1080 ml Output Total 575 ml Balance 505 ml Laboratory Data Labs 24H Laboratory Tests 2 05/25/16 09:44: Arterial Blood pH 7.414, Arterial Blood Partial Pressure CO2 45.3H, Arterial Blood Partial Pressure O2 64.7L, Arterial Blood Total CO2 29.7, Arterial Blood HCO3 28.3H, Arterial Blood Base Excess 3.2H, Arterial Blood Oxygen Saturation 92.1L, Blood Gas Bicarbonate Standard 27.2H 05/25/16 11:36: Bedside Glucose (Misc Panel) 141H 05/25/16 16:24: Bedside Glucose (Misc Panel) 111 05/25/16 17:54: Arterial Blood pH 7.394, Arterial Blood Partial Pressure CO2 50.0H, Arterial Blood Partial Pressure O2 108.4H, Arterial Blood Total CO2 31.4H, Arterial Blood HCO3 29.9H, Arterial Blood Base Excess 4.0H, Arterial Blood Oxygen Saturation 97.9, Blood Gas Bicarbonate Standard 28.1H 05/25/16 20:33: Bedside Glucose (Misc Panel) 273H 05/26/16 05:34: Blood Urea Nitrogen 29H, Creatinine 0.97, Sodium Level 147H, Potassium Level 3.6 , Chloride Level 110H, Carbon Dioxide Level 31, Calcium Level 8.5L, Aspartate Amino Transf (AST/SGOT) 20, Alanine Aminotransferase (ALT/SGPT) 28, Alkaline Phosphatase 66, Total Bilirubin 0.2, Total Protein 5.2L, Albumin 2.7L, Albumin/ Globulin Ratio 1.08, Anion Gap 6L, White Blood Count 4.6, Red Blood Count 3.59L , Hemoglobin 10.9L, Hematocrit 32.2L, Mean Corpuscular Volume 89.6, Mean Corpuscular Hemoglobin 30.2, Mean Corpuscular Hemoglobin Concent 33.7, Red Cell Distribution Width 13.3, Platelet Count 125L, Neutrophils (%) (Auto) 52.4, Lymphocytes (%) (Auto) 34.4, Monocytes (%) (Auto) 8.3H, Eosinophils (%) (Auto) 2.2, Basophils (%) (Auto) 0.5, Neutrophils # (Auto) 2.4, Lymphocytes # (Auto) 1.6, Monocytes # (Auto) 0.4, Eosinophils # (Auto) 0.1, Basophils # (Auto) 0.0, Glomerular Filtration Rate > 60.0, Large Unclassified Cells # 0.1, Large Unclassified Cells % 2.1, Vancomycin Level Trough 19.2 05/26/16 08:36: Arterial Blood pH 7.399, Arterial Blood Partial Pressure CO2 46.2H, Arterial Blood Partial Pressure O2 100.1H, Arterial Blood Total CO2 29.3, Arterial Blood HCO3 27.9H, Arterial Blood Base Excess 2.6H, Arterial Blood Oxygen Saturation 97.4, Blood Gas Bicarbonate Standard 26.8H CBC/BMP Laboratory Tests 05/26/16 05:34 Calcium Level 8.5 L, Aspartate Amino Transf (AST/SGOT) 20, Alanine Aminotransferase (ALT/SGPT) 28, Alkaline Phosphatase 66, Total Bilirubin 0.2, Total Protein 5.2 L, Albumin 2.7 L, Red Blood Count 3.59 L, Mean Corpuscular Volume 89.6, Mean Corpuscular Hemoglobin 30.2, Mean Corpuscular Hemoglobin Concent 33.7, Red Cell Distribution Width 13.3, Neutrophils (%) (Auto) 52.4, Lymphocytes (%) (Auto) 34.4, Monocytes (%) (Auto) 8.3 H, Eosinophils (%) (Auto) 2.2, Basophils (%) (Auto) 0.5, Neutrophils # (Auto) 2.4, Lymphocytes # (Auto) 1.6, Monocytes # (Auto) 0.4, Eosinophils # (Auto) 0.1, Basophils # (Auto) 0.0 FSBS Laboratory Tests Test 05/25/16 11:36 05/25/16 16:24 05/25/16 20:33 Range/Units Bedside Glucose (Misc Panel) 141 111 273 80-115 MG/DL Microbiology Microbiology 05/24/16 Blood Culture - Preliminary, Resulted No growth after 24 hours . All specim... 05/24/16 Blood Culture - Preliminary, Resulted No growth after 24 hours . All specim... 05/24/16 Urine Culture, Received Pending TIFFANIE KLEIN MD May 26, 2016 08:58
[2016-05-26] MEDS: SENOKOT S TAB PO SCH ×2 (10:32→21:03)
[2016-05-26 12:00] VITALS: BP 116/56
[2016-05-26] MEDS ORDERED: SLF 3 ML SYR IV PRN (13:00)
[2016-05-26] MEDS: IPRATROPIUM 0.5MG/ALBUTEROL 2.5MG INH SOL UD 3ML (DUONEB)(J7620) NEB PRN ×2 (13:22)
[2016-05-26] MEDS: SLF 3 ML SYR IV SCH ×2 (14:00→21:05)
[2016-05-26 16:00] VITALS: BP 137/73
[2016-05-26 20:02] VITALS: BP 123/62
[2016-05-26] MEDS: ATORVASTATIN 20 MG TAB PO SCH (21:03)
[2016-05-26] MEDS: TAMSULOSIN 0.4 MG CAP PO SCH (21:04)
--- NOTE | 2016-05-26 21:47 | EDDOCDS ---
Physician Documentation [facility] Name: Talha Major Age: 66 yrs Sex: Male : 1950 Arrival Date: 05/24/2016 Time: 11:26 Bed Admit Hold Private MD: Cornelia Disposition: 05/24 18:04 Critical Care:. ml Disposition: 05/24/16 14:38 Hospitalization ordered by Pattie Sanon for Inpatient Admission. Preliminary diagnosis are Respiratory failure, unspecified, Cystitis. - Bed requested for PCU. - Status is Inpatient Admission. sls1 - Condition is Stable. - Problem is new. - Symptoms are unchanged. Historical: - Allergies: Niacinflush, itching, burning; - Home Meds: 1. allopurinol 100 mg Oral tab 1 tab 2 times per day (Last dose: 05/24/2016 07:00) 2. amlodipine 10 mg Oral tab 1 tab once daily (Last dose: 05/24/2016 07:00) 3. aspirin 81 mg Oral TbEC 1 tab once daily (Last dose: 05/24/2016 07:00) 4. atorvastatin 80 mg oral tab 1 tab once daily (Last dose: 05/24/2016 07:00) 5. Benadryl 25 mg Oral cap as needed (Last dose: Unknown) 6. bupropion HCl 150 mg Oral TbER 1 tab once daily (Last dose: 05/24/2016 07:00) 7. cetirizine 10 mg oral tab 1 tab once daily (Last dose: 05/24/2016 07:00) 8. cholecalciferol 1000 units twice a day (Last dose: 05/24/2016 07:00) 9. Dulcolax (bisacodyl) 5 mg Oral TbEC 1 tab as needed (Last dose: 05/24/2016 07:00) 10. fenofibrate 135mg oral tab once daily (Last dose: 05/24/2016 07:00) 11. folic acid 1 mg Oral tab 1 tab once daily (Last dose: 05/24/2016 07:00) 12. furosemide 40 mg Oral tab 20 mg once daily (Last dose: 05/24/2016 07:00) 13. Lantus 100 unit/mL Sub-Q soln 20 unit twice a day morning and night (Last dose: 05/24/2016 07:00) 14. levothyroxine 75 mcg Oral tab once daily (Last dose: 05/24/2016 07:00) 15. magnesium oxide 400 mg Oral tab 400 mg daily (Last dose: 05/24/2016 07:00) 16. metformin 1,000 mg Oral tab 1 tab 2 times per day (Last dose: 05/24/2016 07:00) 17. metoclopramide HCl 10 mg Oral tab 1 tab 4 times per day (Last dose: 05/24/2016 07:00) 18. metoprolol tartrate 25 mg Oral tab 1 tab 2 times per day (Last dose: 05/24/2016 07:00) 19. nitroglycerin 0.4 mg SL subl 1 tab every 5 minutes spray (Last dose: Unknown) 20. Novolog 100 unit/mL Sub-Q soln sliding scale before meals (Last dose: 05/24/2016 07:00) 21. omega-3 fatty acids 1,000 mg oral cap daily (Last dose: 05/24/2016 07:00) 22. ondansetron HCl 4 mg Oral tab as needed (Last dose: 05/24/2016 07:00) 23. tamsulosin 0.4 mg oral cp24 1 cap once daily (Last dose: 05/24/2016 07:00) 24. doxycycline hyclate 100 mg Oral cap 1 cap every 8 hours (Last dose: 05/24/2016 07:00) - PMHx: ALS; CHF; diabetes - IDDM; Hypercholesterolemia; hyperlipidemia; Hypertension; Hypothyroidism; neuropathy; - PSHx: Cardiac stents; CABG; Intestinal obstruction; Appendectomy; 3-cysts removed; Hernia repair; PEG Tube Insertion; - Social history: Smoking status: Patient states former smoker of tobacco. No barriers to communication noted, Speaks appropriately for age. - Family history: Not pertinent. - : The pt / caregiver states he / she is not on anticoagulants. Home medication list is obtained from the patient, Unable to Verify Home Med List with the patient / caregiver. - Exposure Risk Screening:: None identified. Vital Signs: 11:28 BP 174 / 101; Pulse 83; Resp 22 S; Temp 96.5(T); Pulse Ox 91% on 3% BiPAP; Weight 65.77 ml6 kg / 145 lbs (R); Height 5 ft. 8 in. (172.72 cm) (R); Pain 0/10; 12:34 BP 175 / 81 (auto/); ead 12:35 Pulse Ox 99% ; ead 12:49 BP 173 / 84 (auto/); ead 12:50 Pulse 78 MON; Pulse Ox 97% ; ead 13:04 BP 175 / 91 (auto/); ead 13:05 Pulse 79 MON; Pulse Ox 97% ; ead 13:19 BP 148 / 75 (auto/); ead 13:20 Pulse 63 MON; Pulse Ox 97% ; ead 13:34 BP 159 / 88 (auto/); ead 13:35 Pulse 78 MON; Pulse Ox 95% ; ead 13:49 BP 157 / 83 (auto/); ead 13:50 Pulse 63 MON; Pulse Ox 97% ; ead 14:04 BP 170 / 77 (auto/); ead 14:05 Pulse 65 MON; Pulse Ox 97% on BiPAP; ead 14:19 BP 162 / 86 (auto/); ead 14:20 Pulse 82 MON; Pulse Ox 98% ; ead 14:34 BP 157 / 82 (auto/); ead 14:35 Pulse 84 MON; Pulse Ox 97% ; ead 14:49 BP 156 / 84 (auto/); ead 14:51 Pulse 84 MON; Pulse Ox 97% ; ead 15:04 BP 148 / 83 (auto/); ead 15:05 Pulse 83 MON; Pulse Ox 96% ; ead 15:19 BP 159 / 92 (auto/); ead 15:20 Pulse 84 MON; Pulse Ox 96% ; ead 15:34 BP 161 / 85 (auto/); ead 15:35 Pulse 84 MON; Pulse Ox 96% ; ead 15:49 BP 156 / 91 (auto/); ead 15:50 Pulse 85 MON; Pulse Ox 97% ; ead 16:04 BP 151 / 89 (auto/); ead 16:05 Pulse 85 MON; Resp 20; Pulse Ox 97% on BiPAP; ead 16:19 BP 149 / 79 (auto/); ead 16:20 Pulse 84 MON; Pulse Ox 97% ; ead 16:34 BP 148 / 75 (auto/); ead 16:35 Pulse 85 MON; Pulse Ox 97% ; ead 16:49 BP 151 / 102 (auto/); ead 16:50 Pulse 86 MON; Pulse Ox 94% ; ead 17:04 BP 160 / 87 (auto/); ead 17:05 Pulse 82 MON; Pulse Ox 95% ; ead 17:19 BP 150 / 88 (auto/); ead 17:20 Pulse 88 MON; Pulse Ox 97% ; ead 17:34 BP 153 / 78 (auto/); ead 17:35 Pulse 88 MON; Pulse Ox 97% ; ead 17:49 BP 150 / 83 (auto/); ead 17:50 Pulse 87 MON; Resp 20; Pulse Ox 96% ; ead 18:04 BP 130 / 74 (auto/); ead 18:05 Pulse 87 MON; Pulse Ox 97% ; ead 18:19 BP 132 / 76 (auto/); ead 18:20 Pulse 86 MON; Pulse Ox 97% ; ead 18:34 BP 132 / 77 (auto/); ead 18:35 Pulse 86 MON; Pulse Ox 97% ; ead 18:49 BP 151 / 76 (auto/); ead 18:50 Pulse 88 MON; Pulse Ox 97% ; ead 19:04 BP 162 / 78 (auto/); ead 19:05 Pulse 89 MON; Resp 22; Pulse Ox 97% ; ead 19:17 BP 162 / 78; Pulse 90; Resp 30; Temp 98.1(TE); Pulse Ox 96% on 35% BiPAP; Pain 0/10; nn1 19:42 BP 151 / 87; Pulse 88; Resp 30; Pulse Ox 98% on Non-rebreather mask; Weight 108.86 kg / jlm 240 lbs; Height 5 ft. 8 in. (172.72 cm); Pain 10/10; 19:42 Body Mass Index 36.49 (108.86 kg, 172.72 cm) [facility] MDM: 11:50 -Blood Culture (Adults Only), peripheral from different site, or from device/port/PICC ml6 etc. if present ordered. 11:50 Factory Assembler/Pulse Ox/q 15 min VS ordered. ml6 11:50 Large bore IV x 2 ordered. ml6 11:51 Type & Screen Ordered. EDMS 11:51 -Arterial Blood Gas Ordered. EDMS 11:51 Amylase Ordered. EDMS 11:51 C Reactive Protein Ordered. EDMS 11:51 CBC with Diff Ordered. EDMS 11:51 Lactic Acid (Damico tube on ice) Ordered. EDMS 11:51 Liver Profile Ordered. EDMS 11:51 MED Profile Ordered. EDMS 11:51 PT/INR Ordered. EDMS 11:51 PTT Ordered. EDMS 11:51 Urinalysis Ordered. EDMS 11:51 -Blood Culture Ordered. EDMS 11:51 Urine Culture Ordered. EDMS 11:51 Chest, 1 View Ordered. EDMS 11:52 ECG WITH READING ER PHYS+CARDIAG ordered. EDMS 11:52 Cardiac Marker Panel Ordered. EDMS 11:54 Albuterol 5 mg Nebulizer once ordered. ml 11:54 Albuterol-Ipratropium 3 ml Inhalation once ordered. ml 11:54 Call Respiratory ordered. ml 11:54 Solu-MEDROL 125 mg IVP once ordered. ml 11:55 Call Respiratory ordered. ml 11:56 -Arterial Blood Gas Ordered. EDMS 11:58 Call Respiratory complete. jlf 11:58 Call Respiratory complete. jlf 12:46 -Arterial Blood Gas Reviewed. ml 12:46 CBC with Diff Reviewed. ml 12:46 MED Profile Reviewed. ml 12:46 Cardiac Marker Panel Reviewed. ml 12:46 Amylase Reviewed. ml 12:46 C Reactive Protein Reviewed. ml 12:46 Liver Profile Reviewed. ml 12:46 PT/INR Reviewed. ml 12:46 PTT Reviewed. ml 12:46 NS 0.9% 1000 ml IV at 100 mL/hr continuous ordered. ml 13:10 -Blood Culture (Adults Only), peripheral from different site, or from device/port/PICC deg etc. if present complete. 13:12 BLOOD CULTURES Ordered. EDMS 14:26 Financial registration complete. lg 14:41 [facility] was scanned into [employer] and attached to record. lg 15:16 CONSISTENT CARBOHYDRATES ordered. EDMS 15:17 BIPAP INPATIENT ordered. EDMS 15:18 Admission / Observation Status ordered. EDMS 17:01 Misc. Nursing Order ordered. ml 17:54 vancomycin (loading dose for pt. wt. 60-69kg) 1500 mg IVPB once ordered. ml 19:32 CBC WITH DIFFERENTIAL Ordered. EDMS 19:32 COMPLETE COMPHRENSIVE METABOLI Ordered. EDMS 05/25 11:16 T-Sheet-- Draft Copy was scanned into [employer] and attached to record. gb 11:16 ECG/EKG was scanned into [employer] and attached to record. gb 11:17 Trend VS was scanned into [employer] and attached to record. gb 11:17 Radiology Report was scanned into [employer] and attached to record. gb Administered Medications: 05/24 12:00 Drug: Albuterol 5 mg [albuterol sulfate 2.5 mg/0.5 mL solution for nebulization (1 mL)] cs15 Route: Nebulizer; 12:00 Drug: Albuterol-Ipratropium 3 ml [ipratropium-albuterol 0.5 mg-3 mg(2.5 mg base)/3 mL cs15 nebulization soln (3 mL)] Route: Inhalation; 12:15 Drug: Solu-MEDROL 125 mg [Solu-Medrol 500 mg intravenous solution (125 mg)] Route: IVP; ead Site: left antecubital; 13:34 Drug: NS 0.9% 1000 ml [sodium chloride 0.9 % intravenous solution] Route: IV; Rate: 100 ead mL/hr; Site: left antecubital; 19:14 Drug: vancomycin (loading dose for pt. wt. 60-69kg) 1500 mg [vancomycin 1,000 mg ead intravenous injection] {Note: per pharmacy dilue 1,500 mg in 500 ml D%. infuse over 2 horus.} Route: IVPB; Site: right hand; Critical Care Time: 18:04 Critical care time: Bedside Care: 90 minutes, Consultation: 10 minutes. Total time: 100 ml minutes Signatures: Dispatcher [employer] EDND KristenYung Damico MD MD ml Murray, Denise, Kidney Puller Unit deg Alexandrea Ball, Reg Reg gb Shanice Flores, Reg Reg lg Carlito Chaudhry RN RN ml6 Tatianna Alston RN RN sls1 Thuy Land, APPRENTICE STYLIST APPRENTICE STYLIST teodoraf Tabatha Morgan RN RN ead Andrews, Steven, RN RN sa Shelton, Caleb RT cs15 The chart was reviewed and I authenticate all verbal orders and agree with the evaluation and treatment provided.Attachments: 14:41 [facility] Payment Agreement lg 05/25 11:16 T-Sheet-- Draft Copy 11:16 ECG/EKG Chart Complete MTDD
--- NOTE | 2016-05-26 21:48 | EDDOCDS ---
Physician Documentation [facility] Name: Talha Major Age: 66 yrs Sex: Male : 1950 Arrival Date: 05/24/2016 Time: 11:26 Bed Admit Hold Private MD: Cornelia Disposition: 05/24 18:04 Critical Care:. ml Disposition: 05/24/16 14:38 Hospitalization ordered by Pattie Sanon for Inpatient Admission. Preliminary diagnosis are Respiratory failure, unspecified, Cystitis. - Bed requested for PCU. - Status is Inpatient Admission. sls1 - Condition is Stable. - Problem is new. - Symptoms are unchanged. Historical: - Allergies: Niacinflush, itching, burning; - Home Meds: 1. allopurinol 100 mg Oral tab 1 tab 2 times per day (Last dose: 05/24/2016 07:00) 2. amlodipine 10 mg Oral tab 1 tab once daily (Last dose: 05/24/2016 07:00) 3. aspirin 81 mg Oral TbEC 1 tab once daily (Last dose: 05/24/2016 07:00) 4. atorvastatin 80 mg oral tab 1 tab once daily (Last dose: 05/24/2016 07:00) 5. Benadryl 25 mg Oral cap as needed (Last dose: Unknown) 6. bupropion HCl 150 mg Oral TbER 1 tab once daily (Last dose: 05/24/2016 07:00) 7. cetirizine 10 mg oral tab 1 tab once daily (Last dose: 05/24/2016 07:00) 8. cholecalciferol 1000 units twice a day (Last dose: 05/24/2016 07:00) 9. Dulcolax (bisacodyl) 5 mg Oral TbEC 1 tab as needed (Last dose: 05/24/2016 07:00) 10. fenofibrate 135mg oral tab once daily (Last dose: 05/24/2016 07:00) 11. folic acid 1 mg Oral tab 1 tab once daily (Last dose: 05/24/2016 07:00) 12. furosemide 40 mg Oral tab 20 mg once daily (Last dose: 05/24/2016 07:00) 13. Lantus 100 unit/mL Sub-Q soln 20 unit twice a day morning and night (Last dose: 05/24/2016 07:00) 14. levothyroxine 75 mcg Oral tab once daily (Last dose: 05/24/2016 07:00) 15. magnesium oxide 400 mg Oral tab 400 mg daily (Last dose: 05/24/2016 07:00) 16. metformin 1,000 mg Oral tab 1 tab 2 times per day (Last dose: 05/24/2016 07:00) 17. metoclopramide HCl 10 mg Oral tab 1 tab 4 times per day (Last dose: 05/24/2016 07:00) 18. metoprolol tartrate 25 mg Oral tab 1 tab 2 times per day (Last dose: 05/24/2016 07:00) 19. nitroglycerin 0.4 mg SL subl 1 tab every 5 minutes spray (Last dose: Unknown) 20. Novolog 100 unit/mL Sub-Q soln sliding scale before meals (Last dose: 05/24/2016 07:00) 21. omega-3 fatty acids 1,000 mg oral cap daily (Last dose: 05/24/2016 07:00) 22. ondansetron HCl 4 mg Oral tab as needed (Last dose: 05/24/2016 07:00) 23. tamsulosin 0.4 mg oral cp24 1 cap once daily (Last dose: 05/24/2016 07:00) 24. doxycycline hyclate 100 mg Oral cap 1 cap every 8 hours (Last dose: 05/24/2016 07:00) - PMHx: ALS; CHF; diabetes - IDDM; Hypercholesterolemia; hyperlipidemia; Hypertension; Hypothyroidism; neuropathy; - PSHx: Cardiac stents; CABG; Intestinal obstruction; Appendectomy; 3-cysts removed; Hernia repair; PEG Tube Insertion; - Social history: Smoking status: Patient states former smoker of tobacco. No barriers to communication noted, Speaks appropriately for age. - Family history: Not pertinent. - : The pt / caregiver states he / she is not on anticoagulants. Home medication list is obtained from the patient, Unable to Verify Home Med List with the patient / caregiver. - Exposure Risk Screening:: None identified. Vital Signs: 11:28 BP 174 / 101; Pulse 83; Resp 22 S; Temp 96.5(T); Pulse Ox 91% on 3% BiPAP; Weight 65.77 ml6 kg / 145 lbs (R); Height 5 ft. 8 in. (172.72 cm) (R); Pain 0/10; 12:34 BP 175 / 81 (auto/); ead 12:35 Pulse Ox 99% ; ead 12:49 BP 173 / 84 (auto/); ead 12:50 Pulse 78 MON; Pulse Ox 97% ; ead 13:04 BP 175 / 91 (auto/); ead 13:05 Pulse 79 MON; Pulse Ox 97% ; ead 13:19 BP 148 / 75 (auto/); ead 13:20 Pulse 63 MON; Pulse Ox 97% ; ead 13:34 BP 159 / 88 (auto/); ead 13:35 Pulse 78 MON; Pulse Ox 95% ; ead 13:49 BP 157 / 83 (auto/); ead 13:50 Pulse 63 MON; Pulse Ox 97% ; ead 14:04 BP 170 / 77 (auto/); ead 14:05 Pulse 65 MON; Pulse Ox 97% on BiPAP; ead 14:19 BP 162 / 86 (auto/); ead 14:20 Pulse 82 MON; Pulse Ox 98% ; ead 14:34 BP 157 / 82 (auto/); ead 14:35 Pulse 84 MON; Pulse Ox 97% ; ead 14:49 BP 156 / 84 (auto/); ead 14:51 Pulse 84 MON; Pulse Ox 97% ; ead 15:04 BP 148 / 83 (auto/); ead 15:05 Pulse 83 MON; Pulse Ox 96% ; ead 15:19 BP 159 / 92 (auto/); ead 15:20 Pulse 84 MON; Pulse Ox 96% ; ead 15:34 BP 161 / 85 (auto/); ead 15:35 Pulse 84 MON; Pulse Ox 96% ; ead 15:49 BP 156 / 91 (auto/); ead 15:50 Pulse 85 MON; Pulse Ox 97% ; ead 16:04 BP 151 / 89 (auto/); ead 16:05 Pulse 85 MON; Resp 20; Pulse Ox 97% on BiPAP; ead 16:19 BP 149 / 79 (auto/); ead 16:20 Pulse 84 MON; Pulse Ox 97% ; ead 16:34 BP 148 / 75 (auto/); ead 16:35 Pulse 85 MON; Pulse Ox 97% ; ead 16:49 BP 151 / 102 (auto/); ead 16:50 Pulse 86 MON; Pulse Ox 94% ; ead 17:04 BP 160 / 87 (auto/); ead 17:05 Pulse 82 MON; Pulse Ox 95% ; ead 17:19 BP 150 / 88 (auto/); ead 17:20 Pulse 88 MON; Pulse Ox 97% ; ead 17:34 BP 153 / 78 (auto/); ead 17:35 Pulse 88 MON; Pulse Ox 97% ; ead 17:49 BP 150 / 83 (auto/); ead 17:50 Pulse 87 MON; Resp 20; Pulse Ox 96% ; ead 18:04 BP 130 / 74 (auto/); ead 18:05 Pulse 87 MON; Pulse Ox 97% ; ead 18:19 BP 132 / 76 (auto/); ead 18:20 Pulse 86 MON; Pulse Ox 97% ; ead 18:34 BP 132 / 77 (auto/); ead 18:35 Pulse 86 MON; Pulse Ox 97% ; ead 18:49 BP 151 / 76 (auto/); ead 18:50 Pulse 88 MON; Pulse Ox 97% ; ead 19:04 BP 162 / 78 (auto/); ead 19:05 Pulse 89 MON; Resp 22; Pulse Ox 97% ; ead 19:17 BP 162 / 78; Pulse 90; Resp 30; Temp 98.1(TE); Pulse Ox 96% on 35% BiPAP; Pain 0/10; nn1 19:42 BP 151 / 87; Pulse 88; Resp 30; Pulse Ox 98% on Non-rebreather mask; Weight 108.86 kg / jlm 240 lbs; Height 5 ft. 8 in. (172.72 cm); Pain 10/10; 19:42 Body Mass Index 36.49 (108.86 kg, 172.72 cm) [facility] MDM: 11:50 -Blood Culture (Adults Only), peripheral from different site, or from device/port/PICC ml6 etc. if present ordered. 11:50 Dry Goods Clerk/Pulse Ox/q 15 min VS ordered. ml6 11:50 Large bore IV x 2 ordered. ml6 11:51 Type & Screen Ordered. EDMS 11:51 -Arterial Blood Gas Ordered. EDMS 11:51 Amylase Ordered. EDMS 11:51 C Reactive Protein Ordered. EDMS 11:51 CBC with Diff Ordered. EDMS 11:51 Lactic Acid (Damico tube on ice) Ordered. EDMS 11:51 Liver Profile Ordered. EDMS 11:51 MED Profile Ordered. EDMS 11:51 PT/INR Ordered. EDMS 11:51 PTT Ordered. EDMS 11:51 Urinalysis Ordered. EDMS 11:51 -Blood Culture Ordered. EDMS 11:51 Urine Culture Ordered. EDMS 11:51 Chest, 1 View Ordered. EDMS 11:52 ECG WITH READING ER PHYS+CARDIAG ordered. EDMS 11:52 Cardiac Marker Panel Ordered. EDMS 11:54 Albuterol 5 mg Nebulizer once ordered. ml 11:54 Albuterol-Ipratropium 3 ml Inhalation once ordered. ml 11:54 Call Respiratory ordered. ml 11:54 Solu-MEDROL 125 mg IVP once ordered. ml 11:55 Call Respiratory ordered. ml 11:56 -Arterial Blood Gas Ordered. EDMS 11:58 Call Respiratory complete. jlf 11:58 Call Respiratory complete. jlf 12:46 -Arterial Blood Gas Reviewed. ml 12:46 CBC with Diff Reviewed. ml 12:46 MED Profile Reviewed. ml 12:46 Cardiac Marker Panel Reviewed. ml 12:46 Amylase Reviewed. ml 12:46 C Reactive Protein Reviewed. ml 12:46 Liver Profile Reviewed. ml 12:46 PT/INR Reviewed. ml 12:46 PTT Reviewed. ml 12:46 NS 0.9% 1000 ml IV at 100 mL/hr continuous ordered. ml 13:10 -Blood Culture (Adults Only), peripheral from different site, or from device/port/PICC deg etc. if present complete. 13:12 BLOOD CULTURES Ordered. EDMS 14:26 Financial registration complete. lg 14:41 [facility] [place] Payment Agreement was scanned into [employer] and attached to record. lg 15:16 CONSISTENT CARBOHYDRATES ordered. EDMS 15:17 BIPAP INPATIENT ordered. EDMS 15:18 Admission / Observation Status ordered. EDMS 17:01 Misc. Nursing Order ordered. ml 17:54 vancomycin (loading dose for pt. wt. 60-69kg) 1500 mg IVPB once ordered. ml 19:32 CBC WITH DIFFERENTIAL Ordered. EDMS 19:32 COMPLETE COMPHRENSIVE METABOLI Ordered. EDMS 05/25 11:16 T-Sheet-- Draft Copy was scanned into [employer] and attached to record. gb 11:16 ECG/EKG was scanned into [employer] and attached to record. gb 11:17 Trend VS was scanned into [employer] and attached to record. gb 11:17 Radiology Report was scanned into [employer] and attached to record. gb Administered Medications: 05/24 12:00 Drug: Albuterol 5 mg [albuterol sulfate 2.5 mg/0.5 mL solution for nebulization (1 mL)] cs15 Route: Nebulizer; 12:00 Drug: Albuterol-Ipratropium 3 ml [ipratropium-albuterol 0.5 mg-3 mg(2.5 mg base)/3 mL cs15 nebulization soln (3 mL)] Route: Inhalation; 12:15 Drug: Solu-MEDROL 125 mg [Solu-Medrol 500 mg intravenous solution (125 mg)] Route: IVP; ead Site: left antecubital; 13:34 Drug: NS 0.9% 1000 ml [sodium chloride 0.9 % intravenous solution] Route: IV; Rate: 100 ead mL/hr; Site: left antecubital; 19:14 Drug: vancomycin (loading dose for pt. wt. 60-69kg) 1500 mg [vancomycin 1,000 mg ead intravenous injection] {Note: per pharmacy dilue 1,500 mg in 500 ml D%. infuse over 2 horus.} Route: IVPB; Site: right hand; Critical Care Time: 18:04 Critical care time: Bedside Care: 90 minutes, Consultation: 10 minutes. Total time: 100 ml minutes Signatures: Dispatcher [employer] EDOK KristenYung Damico MD MD ml Murray, Denise, Silver Miner Blasting Unit deg Alexandrea Ball, Reg Reg gb Shanice Flores, Reg Reg lg Carlito Chaudhry RN RN ml6 Tatianna Alston RN RN sls1 Thuy Land, TURFGRASS MANAGEMENT PROFESSOR TURFGRASS MANAGEMENT PROFESSOR teodoraf Tabatha Morgan RN RN ead Andrews, Steven, RN RN sa Shelton, Caleb RT cs15 The chart was reviewed and I authenticate all verbal orders and agree with the evaluation and treatment provided.Attachments: 14:41 [facility] Payment Agreement lg 05/25 11:16 T-Sheet-- Draft Copy 11:16 ECG/EKG Chart Complete MTDD
--- NOTE | 2016-05-26 21:48 | EDDOCDS ---
Nurse's Notes [facility] Name: Talha Major Age: 66 yrs Sex: Male : 1950 Arrival Date: 05/24/2016 Time: 11:26 Bed Admit Hold Private MD: Cornelia Diagnosis: Respiratory failure, unspecified;Cystitis Presentation: 05/24 11:42 Presenting complaint: Child states: states being treated for UTI, states increased ml6 urgency and increased SOB, states unable to come off of home Bipap x 1 week. Adult Sepsis Screening: The patient does not have new or worsening altered mentation. Patient's respiratory rate is less than 22. Systolic blood pressure is greater than 100. Patient has a qSOFA score of 0- Negative Sepsis Screen. Suicide/Homicide risk assessment- the patient denies having any suicidal and/or homicidal ideations and does not present with any other emotional, behavioral or mental health complaints. Status: Patient is not a lubrication servicer or dependent. Transition of care: patient was not received from another setting of care. 11:42 Acuity: ZOILA Level 1 ml6 11:42 Method Of Arrival: Walkin/Carried/Asstd ml6 11:42 Acuity: ZOILA Level 2 ml6 Triage Assessment: 11:48 General: Appears distressed, Behavior is anxious, cooperative. Pain: Denies pain. ml6 Neurological: No deficits noted. Cardiovascular: No deficits noted. Capillary refill < 3 seconds is brisk in bilateral fingers toes. Respiratory: Airway is patent Respiratory effort is even, unlabored, Respiratory pattern is regular, symmetrical, Breath sounds are diminished bilaterally. Reports shortness of breath at rest the patient has severe shortness of breath. GI: No deficits noted. Historical: - Allergies: Niacinflush, itching, burning; - Home Meds: 1. allopurinol 100 mg Oral tab 1 tab 2 times per day (Last dose: 05/24/2016 07:00) 2. amlodipine 10 mg Oral tab 1 tab once daily (Last dose: 05/24/2016 07:00) 3. aspirin 81 mg Oral TbEC 1 tab once daily (Last dose: 05/24/2016 07:00) 4. atorvastatin 80 mg oral tab 1 tab once daily (Last dose: 05/24/2016 07:00) 5. Benadryl 25 mg Oral cap as needed (Last dose: Unknown) 6. bupropion HCl 150 mg Oral TbER 1 tab once daily (Last dose: 05/24/2016 07:00) 7. cetirizine 10 mg oral tab 1 tab once daily (Last dose: 05/24/2016 07:00) 8. cholecalciferol 1000 units twice a day (Last dose: 05/24/2016 07:00) 9. Dulcolax (bisacodyl) 5 mg Oral TbEC 1 tab as needed (Last dose: 05/24/2016 07:00) 10. fenofibrate 135mg oral tab once daily (Last dose: 05/24/2016 07:00) 11. folic acid 1 mg Oral tab 1 tab once daily (Last dose: 05/24/2016 07:00) 12. furosemide 40 mg Oral tab 20 mg once daily (Last dose: 05/24/2016 07:00) 13. Lantus 100 unit/mL Sub-Q soln 20 unit twice a day morning and night (Last dose: 05/24/2016 07:00) 14. levothyroxine 75 mcg Oral tab once daily (Last dose: 05/24/2016 07:00) 15. magnesium oxide 400 mg Oral tab 400 mg daily (Last dose: 05/24/2016 07:00) 16. metformin 1,000 mg Oral tab 1 tab 2 times per day (Last dose: 05/24/2016 07:00) 17. metoclopramide HCl 10 mg Oral tab 1 tab 4 times per day (Last dose: 05/24/2016 07:00) 18. metoprolol tartrate 25 mg Oral tab 1 tab 2 times per day (Last dose: 05/24/2016 07:00) 19. nitroglycerin 0.4 mg SL subl 1 tab every 5 minutes spray (Last dose: Unknown) 20. Novolog 100 unit/mL Sub-Q soln sliding scale before meals (Last dose: 05/24/2016 07:00) 21. omega-3 fatty acids 1,000 mg oral cap daily (Last dose: 05/24/2016 07:00) 22. ondansetron HCl 4 mg Oral tab as needed (Last dose: 05/24/2016 07:00) 23. tamsulosin 0.4 mg oral cp24 1 cap once daily (Last dose: 05/24/2016 07:00) 24. doxycycline hyclate 100 mg Oral cap 1 cap every 8 hours (Last dose: 05/24/2016 07:00) - PMHx: ALS; CHF; diabetes - IDDM; Hypercholesterolemia; hyperlipidemia; Hypertension; Hypothyroidism; neuropathy; - PSHx: Cardiac stents; CABG; Intestinal obstruction; Appendectomy; 3-cysts removed; Hernia repair; PEG Tube Insertion; - Social history: Smoking status: Patient states former smoker of tobacco. No barriers to communication noted, Speaks appropriately for age. - Family history: Not pertinent. - : The pt / caregiver states he / she is not on anticoagulants. Home medication list is obtained from the patient, Unable to Verify Home Med List with the patient / caregiver. - Exposure Risk Screening:: None identified. Screenin:12 Screening information is obtained from the patient, family members. Fall risk: No risks nn1 identified. Assistance ADL's: Requires assistance with meal preparation, this assistance is provided by family members, Home Health Aides, bathing, assistance is provided by family members, Home Health Aides, dressing, assistance is provided by family members, Home Health Aides, toileting, assistance is provided by family members, Home Health Aides, ambulation, assistance is provided by family members, Home Health Aides, housework, assistance is provided by family members, Home Health Aides, medication administration, assistance is provided by family members. Abuse/DV Screen: The patient / caregiver reports he/she is: not in a situation that causes fear, pain or injury. Nutritional screening: No deficits noted. Advance Directives: Currently, there is a health care proxy, Johanne and Renetta Forbespe, daughters . home support is adequate. Assessment: 13:15 General: 18 fr coude removed. New 18 fr coude inserted with blood tinged urine ead returned. minimal output. bladder irrigated with sterile water, clear yellow urine returned. . 13:27 General: Appears in no apparent distress, comfortable, Behavior is appropriate for age, ead cooperative, pleasant. Pain: Denies pain. Neurological: Level of Consciousness is awake, alert, obeys commands, Oriented to person, place, time. Respiratory: Airway is patent Respiratory effort is even, unlabored. : Patel in place. Derm: Skin is pink, warm & dry. 14:07 General: No output in newly inserted coude patel catheter, only drops visibile in ead drainage bag. bladder scan performed showing 97 ml. Pt denies pressure and urgency to void, reports feels much better than symptoms he was having at home. . 15:30 General: Appears in no apparent distress, comfortable, Behavior is appropriate for age, ead cooperative. Pain: Denies pain. Neurological: Level of Consciousness is awake, alert, Oriented to person, place, time. Cardiovascular: Rhythm is sinus rhythm. Respiratory: Airway is patent Respiratory effort is even, unlabored. Derm: Skin is pink, warm & dry. 16:30 General: Appears in no apparent distress, comfortable, Behavior is appropriate for age, ead cooperative. Neurological: No deficits noted. Respiratory: Airway is patent Respiratory effort is even, unlabored. Derm: Skin is pink, warm & dry. 17:30 General: Appears in no apparent distress, comfortable, Behavior is appropriate for age, ead cooperative. Pain: Denies pain. Neurological: Level of Consciousness is awake, alert, Oriented to person, place, time. Respiratory: Airway is patent Respiratory effort is even, unlabored. Derm: Skin is pink, warm & dry. 18:30 General: Appears in no apparent distress, comfortable, Behavior is appropriate for age, ead cooperative. Pain: Denies pain. Neurological: No deficits noted. Respiratory: Airway is patent Respiratory effort is even, unlabored. Derm: Skin is pink, warm & dry. 19:51 General: Patient unable to eat at this time due to SOB, patient continues to have BIPAP nn1 on Family at bedside. Patient comfortable, denies pain. . Pain: Denies pain. Neurological: Level of Consciousness is awake, alert, Oriented to person, place, time. Respiratory: Airway is patent Respiratory effort is even, labored. Derm: Skin is pink, warm & dry. 20:37 General: Appears in no apparent distress, comfortable, Behavior is appropriate for age, nn1 cooperative. Pain: Denies pain. Neurological: No deficits noted. Respiratory: Airway is patent Respiratory effort is even, labored. Derm: Skin is pink, warm & dry. 20:41 General: Vanco infusing per orders. Patient taken to PCU with BIPAP and RT. . nn1 Vital Signs: 11:28 BP 174 / 101; Pulse 83; Resp 22 S; Temp 96.5(T); Pulse Ox 91% on 3% BiPAP; Weight 65.77 ml6 kg (R); Height 5 ft. 8 in. (172.72 cm) (R); Pain 0/10; 12:34 BP 175 / 81 (auto/); ead 12:35 Pulse Ox 99% ; ead 12:49 BP 173 / 84 (auto/); ead 12:50 Pulse 78 MON; Pulse Ox 97% ; ead 13:04 BP 175 / 91 (auto/); ead 13:05 Pulse 79 MON; Pulse Ox 97% ; ead 13:19 BP 148 / 75 (auto/); ead 13:20 Pulse 63 MON; Pulse Ox 97% ; ead 13:34 BP 159 / 88 (auto/); ead 13:35 Pulse 78 MON; Pulse Ox 95% ; ead 13:49 BP 157 / 83 (auto/); ead 13:50 Pulse 63 MON; Pulse Ox 97% ; ead 14:04 BP 170 / 77 (auto/); ead 14:05 Pulse 65 MON; Pulse Ox 97% on BiPAP; ead 14:19 BP 162 / 86 (auto/); ead 14:20 Pulse 82 MON; Pulse Ox 98% ; ead 14:34 BP 157 / 82 (auto/); ead 14:35 Pulse 84 MON; Pulse Ox 97% ; ead 14:49 BP 156 / 84 (auto/); ead 14:51 Pulse 84 MON; Pulse Ox 97% ; ead 15:04 BP 148 / 83 (auto/); ead 15:05 Pulse 83 MON; Pulse Ox 96% ; ead 15:19 BP 159 / 92 (auto/); ead 15:20 Pulse 84 MON; Pulse Ox 96% ; ead 15:34 BP 161 / 85 (auto/); ead 15:35 Pulse 84 MON; Pulse Ox 96% ; ead 15:49 BP 156 / 91 (auto/); ead 15:50 Pulse 85 MON; Pulse Ox 97% ; ead 16:04 BP 151 / 89 (auto/); ead 16:05 Pulse 85 MON; Resp 20; Pulse Ox 97% on BiPAP; ead 16:19 BP 149 / 79 (auto/); ead 16:20 Pulse 84 MON; Pulse Ox 97% ; ead 16:34 BP 148 / 75 (auto/); ead 16:35 Pulse 85 MON; Pulse Ox 97% ; ead 16:49 BP 151 / 102 (auto/); ead 16:50 Pulse 86 MON; Pulse Ox 94% ; ead 17:04 BP 160 / 87 (auto/); ead 17:05 Pulse 82 MON; Pulse Ox 95% ; ead 17:19 BP 150 / 88 (auto/); ead 17:20 Pulse 88 MON; Pulse Ox 97% ; ead 17:34 BP 153 / 78 (auto/); ead 17:35 Pulse 88 MON; Pulse Ox 97% ; ead 17:49 BP 150 / 83 (auto/); ead 17:50 Pulse 87 MON; Resp 20; Pulse Ox 96% ; ead 18:04 BP 130 / 74 (auto/); ead 18:05 Pulse 87 MON; Pulse Ox 97% ; ead 18:19 BP 132 / 76 (auto/); ead 18:20 Pulse 86 MON; Pulse Ox 97% ; ead 18:34 BP 132 / 77 (auto/); ead 18:35 Pulse 86 MON; Pulse Ox 97% ; ead 18:49 BP 151 / 76 (auto/); ead 18:50 Pulse 88 MON; Pulse Ox 97% ; ead 19:04 BP 162 / 78 (auto/); ead 19:05 Pulse 89 MON; Resp 22; Pulse Ox 97% ; ead 19:17 BP 162 / 78; Pulse 90; Resp 30; Temp 98.1(TE); Pulse Ox 96% on 35% BiPAP; Pain 0/10; nn1 19:42 BP 151 / 87; Pulse 88; Resp 30; Pulse Ox 98% on Non-rebreather mask; Weight 108.86 kg; [facility] Height 5 ft. 8 in. (172.72 cm); Pain 10/10; 19:42 Body Mass Index 36.49 (108.86 kg, 172.72 cm) [facility] Vitals: 11:28 Log In Time: May 24, 2016 at 11:26. dd6 ED Course: 11:27 Patient visited by Donald Valdez PCA. dd6 11:27 Patient moved to Waiting dd6 11:28 Cornelia is Private Physician. dd6 11:31 Tabatha Morgan,RN is Primary Nurse. dd6 11:31 Patient moved to 2 dd6 11:38 Patient visited by Thuy Land PCA. jlf 11:39 Patient visited by Thuy Land PCA. jlf 11:39 Pt greeted and oriented to ED. Patient advised of names of staff involved in care, jlf location of call ardon, wait times and NPO status. Accompanied by Family Member, Patient has correct armband on for positive identification. Bed in low position. Side rails up X2. health care sanitary technician on. Pulse ox on. NIBP on. 11:43 Yung Avila MD is Attending Physician. ml 11:43 Patient visited by Yung Avila MD. ml 11:44 Triage Initiated ml6 11:57 Patient visited by Thuy Land PCA. jlf 11:57 Patient visited by Thuy Land PCA. jlf 11:57 EKG done. (by ED staff). Reviewed by Yung Avila MD. jlf 12:08 CBC with Diff Sent. ead 12:08 -Blood Culture Sent. ead 12:08 Amylase Sent. ead 12:08 C Reactive Protein Sent. ead 12:08 Liver Profile Sent. ead 12:08 Lactic Acid (Damico tube on ice) Sent. ead 12:08 MED Profile Sent. ead 12:08 Type & Screen Sent. ead 12:08 PTT Sent. ead 12:08 PT/INR Sent. ead 12:08 Inserted saline lock: 20 gauge in left antecubital area and blood collected. The ead patient tolerated the procedure well. 12:26 -Arterial Blood Gas Sent. cs15 12:33 Patient visited by Tabatha Morgan RN. ead 12:33 Inserted saline lock: 20 gauge in right hand and blood collected. The patient tolerated ead the procedure well. 13:08 Patient visited by Thuy Land PCA. jlf 13:20 Coud inserted 18 Fr. Returned bloody urine. Urine specimen collected. Patient ead tolerated well. 13:27 The patient / caregiver is instructed regarding the plan of care and ED course. ead 13:32 Chest, 1 View Returned. EDMS 13:34 Patient visited by Tabatha Morgan,AKASH. ead 14:06 Patient visited by Tabatha Morgan,AKASH. ead 14:38 Pattie Sanon is Hospitalizing Provider. ml 14:41 [facility] Payment Agreement was scanned into [employer] and attached to record. lg 15:17 Patient moved to Admit Hold js13 16:04 Patient visited by Tabatha Morgan,RN. ead 17:50 EKG-ADULT Returned. EDMS 19:43 Patient visited by Laura Jon, Staffing Program Manager. jlm 19:51 Patient visited by John Lemus,AKASH. nn1 19:57 BIPAP: FiO2: 30%, Full face fask. nn1 20:37 No procedures done that require assistance. nn1 05/25 11:16 T-Sheet-- Draft Copy was scanned into [employer] and attached to record. gb 11:16 ECG/EKG was scanned into [employer] and attached to record. gb 11:17 Trend VS was scanned into [employer] and attached to record. gb 11:17 Radiology Report was scanned into [employer] and attached to record. gb Administered Medications: 05/24 12:00 Drug: Albuterol 5 mg [albuterol sulfate 2.5 mg/0.5 mL solution for nebulization (1 mL)] cs15 Route: Nebulizer; 12:00 Drug: Albuterol-Ipratropium 3 ml [ipratropium-albuterol 0.5 mg-3 mg(2.5 mg base)/3 mL cs15 nebulization soln (3 mL)] Route: Inhalation; 12:15 Drug: Solu-MEDROL 125 mg [Solu-Medrol 500 mg intravenous solution (125 mg)] Route: IVP; ead Site: left antecubital; 13:34 Drug: NS 0.9% 1000 ml [sodium chloride 0.9 % intravenous solution] Route: IV; Rate: 100 ead mL/hr; Site: left antecubital; 19:14 Drug: vancomycin (loading dose for pt. wt. 60-69kg) 1500 mg [vancomycin 1,000 mg ead intravenous injection] {Note: per pharmacy dilue 1,500 mg in 500 ml D%. infuse over 2 horus.} Route: IVPB; Site: right hand; Attachments: 11:17 Trend VS gb Output: 05/24 14:18 Urine: 100.00ml (Patel); Total: 100.00ml. ead 16:04 Urine: 120.00ml (Patel); Total: 220.00ml. ead RT: 12:27 ABG's drawn from left radial artery allens test done and positive pressure held for 5 cs15 minutes no bleeding noted pressure bandage applied specimen sent pt. tolerated well. BiPAP 60% plus 8 L for nebulizer. Respiratory: Breath sounds are coarse bilaterally. Breath sounds are diminished bilaterally. Order Results: Lab Order: -Arterial Blood Gas; SPEC' 05/24/16 12:24 Test: ABG pH (ARTERIAL); Value: 7.290; Range: 7.350-7.450; Abnormal: Below low normal; Units: UNITS; Status: F Test: ABG PARTIAL PRESSURE CO2; Value: 48.7; Range: 35.0-45.0; Abnormal: Above high normal; Units: mmHg; Status: F Test: ABG PARTIAL PRESSURE O2; Value: 138.8; Range: 75.0-100.0; Abnormal: Above high normal; Units: mmHg; Status: F Test: ABG TOTAL CO2; Value: 24.4; Range: 23.0-31.0; Units: MEQ/L; Status: F Test: ABG HCO3; Value: 22.9; Range: 22.0-26.0; Units: MEQ/L; Status: F Test: ABG BASE EXCESS; Value: -4.0; Range: -2.0-2.0; Abnormal: Below low normal; Status: F Test: ABG STANDARD HCO3; Value: 21.2; Range: 22.0-26.0; Abnormal: Below low normal; Units: MEQ/L; Status: F Test: ABG O2 SATURATION; Value: 98.7; Range: 95.0-99.0; Units: %; Status: F Test: ABG DEVICE; Value: NASAL DEVI; Status: F Lab Order: Amylase; SPEC' 05/24/16 12:01 Test: AMYLASE; Value: 52; Range: 25-115; Units: U/L; Status: F Lab Order: C Reactive Protein; SPEC' 05/24/16 12:01 Test: C REACTIVE PROTEIN QUANTITATIV; Value: < 0.30; Range: 0.00-0.30; Units: MG/DL; Status: F Lab Order: CBC with Diff; SPEC' 05/24/16 12:01 Test: WHITE BLOOD COUNT; Value: 10.0; Range: 4.0-10.0; Units: K/mm3; Status: F Test: RED BLOOD COUNT; Value: 4.62; Range: 4.30-6.10; Units: M/mm3; Status: F Test: HEMOGLOBIN; Value: 14.1; Range: 14.0-18.0; Units: g/dl; Status: F Test: HEMATOCRIT; Value: 41.8; Range: 42.0-52.0; Abnormal: Below low normal; Units: %; Status: F Test: MEAN CORPUSCULAR VOLUME; Value: 90.5; Range: 80.0-96.0; Units: fl; Status: F Test: MEAN CORPUSCULAR HEMOGLOBIN; Value: 30.5; Range: 27.0-33.0; Units: pg; Status: F Test: MEAN CORPUSCULAR HGB CONC; Value: 33.7; Range: 32.0-36.5; Units: g/dl; Status: F Test: RED CELL DISTRIBUTION WIDTH; Value: 13.3; Range: 11.5-14.5; Units: %; Status: F Test: PLATELET COUNT, AUTOMATED; Value: 236; Range: 150-450; Units: k/mm3; Status: F Test: NEUTROPHILS %; Value: 81.8; Range: 36.0-66.0; Abnormal: Above high normal; Units: %; Status: F Test: LYMPH %; Value: 10.5; Range: 24.0-44.0; Abnormal: Below low normal; Units: %; Status: F Test: MONO %; Value: 5.3; Range: 0.0-5.0; Abnormal: Above high normal; Units: %; Status: F Test: EOS %; Value: 0.7; Range: 0.0-3.0; Units: %; Status: F Test: BASO %; Value: 0.7; Range: 0.0-1.0; Units: %; Status: F Test: LARGE UNSTAINED CELL %; Value: 0.9; Range: 0.0-4.0; Units: %; Status: F Test: NEUTROPHILS #; Value: 8.2; Range: 1.8-7.7; Abnormal: Above high normal; Units: K/mm3; Status: F Test: LYMPH #; Value: 1.1; Range: 1.5-4.5; Abnormal: Below low normal; Units: K/mm3; Status: F Test: MONO #; Value: 0.5; Range: 0.0-0.8; Units: K/mm3; Status: F Test: EOS #; Value: 0.1; Range: 0.0-0.50; Units: K/mm3; Status: F Test: BASO #; Value: 0.1; Range: 0.0-0.2; Units: K/mm3; Status: F Test: LARGE UNSTAINED CELL #; Value: 0.1; Range: 0.0-0.4; Units: K/mm3; Status: F Lab Order: Lactic Acid (Damico tube on ice); [facility]' 05/24/16 12:01 Test: LACTIC ACID LEVEL, LACTATE; Value: 1.2; Range: 0.4-2.0; Units: MMOL/L; Status: F Lab Order: Liver Profile; [facility]' 05/24/16 12:01 Test: AST/SGOT; Value: 20; Range: 15-37; Units: U/L; Status: F Test: ALT/SGPT; Value: 32; Range: 12-78; Units: U/L; Status: F Test: ALKALINE PHOSPHATASE; Value: 55; Range: 45-117; Units: U/L; Status: F Test: BILIRUBIN,TOTAL; Value: 0.6; Range: 0.2-1.0; Units: MG/DL; Status: F Test: BILIRUBIN,DIRECT; Value: 0.1; Range: 0.0-0.2; Units: MG/DL; Status: F Test: TOTAL PROTEIN; Value: 7.5; Range: 6.4-8.2; Units: GM/DL; Status: F Test: ALBUMIN; Value: 3.8; Range: 3.2-5.2; Units: GM/DL; Status: F Test: ALBUMIN/GLOBULIN RATIO; Value: 1.03; Range: 1.00-1.93; Status: F Lab Order: MED Profile; SPEC' 05/24/16 12:01 Test: GLUCOSE, FASTING; Value: 133; Range: 80-110; Abnormal: Above high normal; Units: MG/DL; Status: F Test: BLOOD UREA NITROGEN; Value: 20; Range: 7-18; Abnormal: Above high normal; Units: MG/DL; Status: F Test: CREATININE FOR GFR; Value: 0.95; Range: 0.70-1.30; Units: MG/DL; Status: F Test: GLOMERULAR FILTRATION RATE; Value: > 60.0; Range: >49; Status: F Test: SODIUM LEVEL; Value: 142; Range: 136-145; Units: MEQ/L; Status: F Test: POTASSIUM SERUM; Value: 4.0; Range: 3.5-5.1; Units: MEQ/L; Status: F Test: CHLORIDE LEVEL; Value: 105; Range: 98-107; Units: MEQ/L; Status: F Test: CARBON DIOXIDE LEVEL; Value: 30; Range: 21-32; Units: MEQ/L; Status: F Test: ANION GAP; Value: 7; Range: 8-16; Abnormal: Below low normal; Units: MEQ/L; Status: F Test: CALCIUM LEVEL; Value: 9.5; Range: 8.8-10.2; Units: MG/DL; Status: F Test Note: ; Units are mL/min/1.73 m2 Chronic Kidney Disease Staging per NKF: Stage I & II GFR >=60 Normal to Mildly Decreased Stage III GFR 30-59 Moderately Decreased Stage IV GFR 15-29 Severely Decreased Stage V GFR <15 Very Little GFR Left ESRD GFR <15 on MEDICAL LAB TECHNICIAN Lab Order: PT/INR; SPEC'M 05/24/16 12:01 Test: PROTHROMBIN TIME; Value: 13.7; Range: 12.3-14.5; Units: SECONDS; Status: F Test: INR; Value: 1.04; Status: F Test Note: ; THERAPUTIC HUMAN INR VALUES INDICATIONS NORMAL RANGES PROPHYLAXIS/TREATMENT OF: VENOUS THROMBOSIS 2.0-3.0 PULMONARY EMBOLISM 2.0-3.0 PREVENTION OF SYSTEMIC EMBOLISM FROM: TISSUE HEART VALVES 2.0-3.0 ACUTE MYOCARDIAL INFARCTION 2.0-3.0 VALVULAR HEART DISEASE 2.0-3.0 ATRIAL FIBRILLATION 2.0-3.0 MECHANICAL VALVES(HIGH RISK) 2.5-3.5 RECURRENT MYOCARDIAL INFARCTION 2.5-3.5 Lab Order: PTT; SPEC'M 05/24/16 12:01 Test: PARTIAL THROMBOPLASTIN TIME; Value: 27.5; Range: 26.6-37.1; Units: SECONDS; Status: F Lab Order: Type & Screen; [facility] 05/24/16 12:01 Test: BLOOD TYPE; Value: O NEG; Status: F Test: AB SCREEN (INDIRECT URSULA)GEL; Value: NEGATIVE; Status: F Lab Order: Urinalysis; [facility] 05/24/16 12:31 Test: APPEARANCE, URINE; Value: CLOUDY; Range: CLEAR; Abnormal: Above high normal; Status: F Test: COLOR, URINE; Value: YELLOW; Range: YELLOW; Status: F Test: PH,URINE; Value: 6.0; Range: 5.0-9.0; Units: UNITS; Status: F Test: SPECIFIC GRAVITY URINE AUTO; Value: 1.016; Range: 1.002-1.035; Status: F Test: PROTEIN, URINE AUTO; Value: 2+; Range: NEGATIVE; Abnormal: Above high normal; Units: mg/dL; Status: F Test: GLUCOSE, URINE (UA) AUTO; Value: 1+; Range: NEGATIVE; Abnormal: Above high normal; Units: mg/dL; Status: F Test: KETONE, URINE AUTO; Value: TRACE; Range: NEGATIVE; Abnormal: Above high normal; Units: mg/dL; Status: F Test: UROBILINOGEN, URINE AUTO; Value: 0.2; Range: 0.0-2.0; Units: mg/dL; Status: F Test: BILIRUBIN, URINE AUTO; Value: NEGATIVE; Range: NEGATIVE; Status: F Test: NITRITE, URINE AUTO; Value: POSITIVE; Range: NEGATIVE; Status: F Test: LEUKOCYTE ESTERASE, URINE AUTO; Value: 3+; Range: NEGATIVE; Abnormal: Above high normal; Status: F Test: BLOOD, URINE BLOOD; Value: 3+; Range: NEGATIVE; Abnormal: Above high normal; Status: F Test: WBC, URINE AUTO; Value: 121; Range: 0-3; Abnormal: Above high normal; Units: /HPF; Status: F Test: RBC, URINE AUTO; Value: TNTC; Range: 0-3; Abnormal: Above high normal; Units: /HPF; Status: F Test: BACTERIA, URINE AUTO; Value: 1+; Range: NEGATIVE; Abnormal: Above high normal; Status: F Test: SQUAMOUS EPITHELIAL CELL UR AU; Value: 1; Range: 0-6; Units: /HPF; Status: F Test: MUCUS, URINE; Value: SMALL; Range: NEGATIVE; Status: F Test: HYALINE CAST, URINE AUTO; Value: 0; Range: 0-1; Units: /LPF; Status: F Test: AMORPHOUS SEDIMENT; Value: SMALL; Range: NEGATIVE; Abnormal: Above high normal; Status: F Lab Order: Cardiac Marker Panel; SPEC'M 05/24/16 12:01 Test: CPK CREATINE PHOSPHOKINASE; Value: 46; Range: 39-308; Units: U/L; Status: F Test: CK-MB VALUE MASS; Value: 4.3; Range: 0.0-3.6; Abnormal: Above high normal; Units: NG/ML; Status: F Test: MB/CK RELATIVE INDEX; Value: 9.34; Range: < OR =4; Abnormal: Above high normal; Status: F Test: TROPONIN I; Value: < 0.02; Range: < 0.10; Units: NG/ML; Status: F Test Note: ; DIAGNOSIS CRITERIA MMB ng/ml Relative Index (RI) NON-AMI < or = 5 N/A [place] ZONE > 5 < or = 4 AMI > 5 > 4 Radiology Order: Chest, 1 View Test: Chest, 1 View REASON FOR EXAMINATION: Shortness of Breath; Portable chest x-ray: Single view.; ; History: Shortness of breath.; ; Findings: Oxygen delivery tubing and EKG monitoring electrodes are seen. Median; sternotomy wires are noted. Mild cardiomegaly is again noted unchanged from the; comparison study of February 03, 2016. The lungs are well inflated and clear.; Pleural angles are sharp. Pulmonary vasculature is not increased.; ; Impression:; ; Mild cardiomegaly status post prior sternotomy. 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 ml 20:36 Discharge Assessment: Patient awake, alert and oriented x 3. No cognitive and/or nn1 functional deficits noted. Patient verbalized understanding of disposition instructions. patient administered narcotics - no. The following High Risk Discharge criteria are identified: None. Admitted to PCU accompanied by nurse, accompanied by tech, family with patient, via stretcher, with oxygen, on monitor, with chart. Condition: unchanged. Admission hand-off: Report Faxed Fax receipt verified by AKASH Workman . Property :Personal belongings accompany Pt. 20:37 No special radiology studies were completed. nn1 20:47 Patient left the ED. sls1 Signatures: Dispatcher [employer] EDMS Yung Avila MD MD ml Barnhardt, Gloria, Reg Reg gb Shanice Flores, Reg Reg lg Donald Valdez, COORDINATOR OF GENETIC SERVICES COORDINATOR OF GENETIC SERVICES dd6 Carlito Chaudhry, RN RN ml6 Tatianna Alston, RN RN sls1 Meme Feliciano,RN RN js13 Thuy Land, COORDINATOR OF GENETIC SERVICES COORDINATOR OF GENETIC SERVICES jlf Tabatha Morgan,RN Laura Valverde, Staffing Program Manager Unit jlJohn NavarreteRN RN nn1 Aj Adamson,RT RT cs15 Corrections: (The following items were deleted from the chart) 11:55 11:28 BP 174 / 101; Pulse 83bpm; Resp 22bpm; Spontaneous; Pulse Ox 91% 3 lpm Nasal ml6 Cannula; Temp 96.5F Tympanic; 65.77 kg Reported; Height 5 ft. 8 in. Reported; BMI: 22.0; dd6 Chart Complete MTDD
[2016-05-26 23:59] VITALS: BP 129/62
[2016-05-27 05:22] VITALS: BP 109/59
[2016-05-27 05:38] LABS: EOS # 0.2 K/mm3 (0.0-0.50); EOS % 3.5 % (0.0-3.0); LARGE UNSTAINED CELL # 0.1 K/mm3 (0.0-0.4); LARGE UNSTAINED CELL % 2.1 % (0.0-4.0); LYMPH # 1.4 K/mm3 (1.5-4.5); LYMPH % 28.9 % (24.0-44.0); MEAN CORPUSCULAR HEMOGLOBIN 30.1 pg (27.0-33.0); MONO # 0.3 K/mm3 (0.0-0.8); MONO % 7.2 % (0.0-5.0); NEUTROPHILS # 2.5 K/mm3 (1.8-7.7); NEUTROPHILS % 57.3 % (36.0-66.0); PLATELET COUNT, AUTOMATED 113 k/mm3 (150-450); RED CELL DISTRIBUTION WIDTH 14.1 % (11.5-14.5); WHITE BLOOD COUNT 4.4 K/mm3 (4.0-10.0)
[2016-05-27 05:49] LABS: ALBUMIN 2.7 GM/DL (3.2-5.2); ALBUMIN/GLOBULIN RATIO 1.13 (1.00-1.93); ALKALINE PHOSPHATASE 68 U/L (45-117); ALT/SGPT 31 U/L (12-78); ANION GAP 6 MEQ/L (8-16); AST/SGOT 18 U/L (15-37); BILIRUBIN,TOTAL 0.3 MG/DL (0.2-1.0); BLOOD UREA NITROGEN 23 MG/DL (7-18); CALCIUM LEVEL 8.3 MG/DL (8.8-10.2); CARBON DIOXIDE LEVEL 32 MEQ/L (21-32); CHLORIDE LEVEL 109 MEQ/L (98-107); CREATININE FOR GFR 0.86 MG/DL (0.70-1.30); GLOMERULAR FILTRATION RATE > 60.0 (>49); GLUCOSE, FASTING 204 MG/DL (80-110); POTASSIUM SERUM 3.9 MEQ/L (3.5-5.1); SODIUM LEVEL 147 MEQ/L (136-145); TOTAL PROTEIN 5.1 GM/DL (6.4-8.2)
[2016-05-27] MEDS: SLF 3 ML SYR IV SCH (06:12)
[2016-05-27] MEDS: LEVOTHYROXINE 0.075 MG TAB (75 MCG) PO SCH (06:12)
[2016-05-27] MEDS: VANCOMYCIN HCL 1,000 MG, VIAL MATE ADAPTER 1 EACH in D5W 250 ML IV SCH (06:12)
[2016-05-27] MEDS: HumaLOG INSULIN (NovoLOG) PER UNIT SC SCH (07:49)
[2016-05-27] MEDS: LEVEMIR (INSULIN DETEMIR) 1 UNITS/0.01ML SC SCH (07:50)
[2016-05-27] MEDS: ALLOPURINOL 100 MG TAB PO SCH (07:50)
[2016-05-27] MEDS: ASPIRIN 81 MG ENTERIC TAB PO SCH (07:50)
[2016-05-27] MEDS: VITAMIN D 1,000 INTERNATIONAL UNITS TABLET PO SCH (07:50)
[2016-05-27] MEDS: CETIRIZINE (ZyrTEC) 10 MG TAB PO SCH (07:50)
[2016-05-27] MEDS: OMEGA-3 1050MG CAPSULE PO SCH (07:50)
[2016-05-27] MEDS: buPROPion **SR TABLET** (ZYBAN) 150MG PO SCH (07:50)
[2016-05-27] MEDS: MAGNESIUM OXIDE 400 MG TAB (MAG-OX) PO SCH (07:50)
[2016-05-27] MEDS: MULTIVITAMINS/MINERALS THERAP 1 TAB PO SCH (07:50)
[2016-05-27 07:51] VITALS: BP 142/66
[2016-05-27] MEDS: FOLIC ACID 1 MG TAB PO SCH (07:51)
[2016-05-27] MEDS: FUROSEMIDE 20 MG TAB PO SCH (07:51)
[2016-05-27] MEDS: METOPROLOL TART 50 MG TAB PO SCH (07:51)
[2016-05-27] MEDS: SENOKOT S TAB PO SCH (07:51)
[2016-05-27] MEDS: FLUTICASONE PROP 0.05% NASAL SPRAY 16 GM (FLONASE) SCH (07:52)
[2016-05-27 08:00] VITALS: BP 142/66
[2016-05-27] MEDS: FORMOTEROL FUMARATE 20 MCG/2 ML INHALATION SOLUTION (PERFOROMIST) INH SCH (08:02)
[2016-05-27] MEDS ORDERED: DOXY-278 PO (08:05)
[2016-05-27] MEDS ORDERED: LOPR1TAB6 PO (08:05)
[2016-05-27] MEDS ORDERED: DULC10SU2 PR (08:08)
[2016-05-27] MEDS ORDERED: BISACODYL 5 MG TAB PO PRN (08:15)
[2016-05-27] MEDS ORDERED: FLEET ENEMA PR PRN (08:15)
--- NOTE | 2016-05-27 13:26 | DSES ---
DATE OF ADMISSION: 05/26/2016 DATE OF DISCHARGE: 05/27/2016 PRIMARY CARE PROVIDER: Dr. Locke DISCHARGE DIAGNOSES: 1. Acute on chronic respiratory failure with hypoxia and hypercarbia increased bilevel ventilatory support. 2. Postnasal drip with sinus inflammation causing worsening of shortness of breath. 3. Urinary tract infection with Staphylococcus epidermidis due to indwelling Carter catheter. 4. Reactive airway disease. 5. Amyotrophic lateral sclerosis. 6. Chronic diastolic congestive heart failure (CHF). 7. Chronic obstructive pulmonary disease (COPD). 8. Diabetes. 9. Hypertension. 10. Coronary artery disease. 11. Hypothyroid. 12. Chronic thoracic . 13. History of urinary retention with chronic Carter catheter in place. DISCHARGE MEDICATIONS: - doxycycline 100 mg by mouth twice a day - metoprolol 25 mg by mouth twice a day - Dulcolax 10 mg daily as needed constipation per rectal - Tylenol 650 mg every 6 hours as needed, pain or fever - albuterol sulfate two puffs inhalation four times a day as needed, shortness of breath - allopurinol 100 mg by mouth twice a day - aspirin 81 mg daily - atorvastatin 40 mg at bedtime - baclofen 10 mg every 2 days - Dulcolax 5 mg by mouth every 2 days - bupropion 150 mg daily - cetirizine 10 mg daily - cholecalciferol 1000 units by mouth twice a day - fenofibrate acid 135 mg by mouth at bedtime - Flonase one spray twice a day - folic acid 1 mg by mouth daily - Perforomist 20 mcg inhalation twice a day - Lasix 20 mg by mouth daily - hydroxyzine 25 mg at bedtime - Lantus insulin 15 units twice a day as per sliding scale - magnesium oxide 400 mg by mouth daily - metformin 1000 mg by mouth twice a day - multivitamins one tablet by mouth daily - nitroglycerin 0.4 mg sublingually as needed - [place]-3 fatty acids 1000 mg capsule, two capsules by mouth twice a day - 0ndansetron 4 mg tablet, one tablet four times a day as needed nausea or vomiting - tamsulosin 0.8 mg by mouth at bedtime HOSPITAL COURSE: This is a 66-year-old male who presented to the hospital with acute onset and severe episodes of coughing, inability to bring up sputum, with worsening shortness of breath, and urinary symptoms. Patient was diagnosed with urinary tract infection with Staphylococcus epidermidis one week prior to admission and was already started on doxycycline, which he was taking at home. For his respiratory symptoms, it was felt to be related to his sinus infection and increased postnasal drip. Patient was continued on vancomycin for his urinary tract infection. Patient initially required increased bilevel positive airway pressure (BiPAP) support for his acute on chronic respiratory failure. However, on day #3 of admission, he was able to be weaned back to his home level of BiPAP support of 12/5. Repeat arterial blood gases (ABGs) with the home level were in the chronic level as is usual. culture came back again as Staphylococcus epidermidis, so patient was switched from vancomycin to doxycycline. At present, patient is functioning at his baseline with stable vital signs and stable respiratory status, and is going to be discharged in stable condition. PHYSICAL EXAMINATION: VITAL SIGNS: Temperature 96.5, pulse 61, respiratory rate 20, blood pressure 142/66, pulse oximetry 94% with BiPAP with 35% oxygen. GENERAL: Patient awake, alert, oriented times three, lying down in bed, in no acute distress. HEENT: Normocephalic, atraumatic. Moist mucous membranes. Anicteric eyes. CHEST: Bilateral poor air entry. Some basilar crackles. No rub. CARDIOVASCULAR: S1, S2 regular. No rub, murmur or gallop. ABDOMEN: Soft, nontender. Bowel sounds present. EXTREMITIES: No edema. LABORATORY DATA: WBC 4.4, hemoglobin 10.9, platelets 113. Sodium 147, potassium 3.9, chloride 109, bicarbonate 32, BUN 23, creatinine 0.8, glucose 204, calcium 8.3. Liver function tests are normal. Last blood gas was 7.39 pH, pCO2 46, pO2 100 with BiPAP settings of 12/5 and oxygen of 35%. Chest x-ray did not show any acute infiltrates. DISPOSITION: Patient is discharged home in a stable condition. DISCHARGE INSTRUCTIONS: Patient to follow with primary care provider in 1 week. Diet as tolerated. Activity as tolerated.
== END 2016-05-27 11:22 | disposition home health service (06) | DRG 698 ==
LOC: M ED 11:26 → M ED INP 15:10 → M PCU 20:47 → OBSVTOIN 05-26 09:33
PROVIDERS: ADMIT Internal Medicine; ATTEND Internal Medicine Nephrology
DX: T83.511A Infection and inflammatory reaction due to indwelling urethral catheter, initial encounter (principal); J96.22 Acute and chronic respiratory failure with hypercapnia; J96.21 Acute and chronic respiratory failure with hypoxia; I50.32 Chronic diastolic (congestive) heart failure; G12.21 Amyotrophic lateral sclerosis; I10 Essential (primary) hypertension; E11.9 Type 2 diabetes mellitus without complications; I25.10 Atherosclerotic heart disease of native coronary artery without angina pectoris; J45.909 Unspecified asthma, uncomplicated; E03.9 Hypothyroidism, unspecified; R33.9 Retention of urine, unspecified; E78.5 Hyperlipidemia, unspecified; J32.9 Chronic sinusitis, unspecified; J44.9 Chronic obstructive pulmonary disease, unspecified; Z79.51 Long term (current) use of inhaled steroids; Z79.4 Long term (current) use of insulin; Z79.899 Other long term (current) drug therapy; Z96.0 Presence of urogenital implants; B95.7 Other staphylococcus as the cause of diseases classified elsewhere; Z95.1 Presence of aortocoronary bypass graft; Z93.1 Gastrostomy status; Z87.891 Personal history of nicotine dependence; Z88.8 Allergy status to other drugs, medicaments and biological substances; Z99.89 Dependence on other enabling machines and devices

== ENCOUNTER → 2016-07-07 | Outpatient (CLI) | payer MEDICARE, OTHER ==
[~2016-07-07] MED LIST changes: +ALBU17IN INH; +ASPI1TAB PO; +BACL10TA2 PO; +BISA5TAB7 PO; +DOXY-278 PO; +DOXY100C37 PO; +DULC10SU2 PR; +FLON1SPR; +HYDR1CAP25 PO; +LOPR1TAB6 PO; +ONDA1TAB15 PO; +TYLE325T5 PO; +VITMTA PO
--- NOTE | 2016-07-07 10:22 | REP ---
CHEST, TWO VIEWS: HISTORY: Preoperative. COMPARISON: 05/25/2016. The lungs are clear. The heart is upper limits of normal in size. The pulmonary vasculature is normal in appearance. Degenerative change is present in the thoracic spine. IMPRESSION: No acute disease. Signed by Nuno Clark MD 07/07/2016 10:47 A
[2016-07-07 10:58] LABS: ANION GAP 8 MEQ/L (8-16); BLOOD UREA NITROGEN 31 MG/DL (7-18); CALCIUM LEVEL 9.5 MG/DL (8.8-10.2); CARBON DIOXIDE LEVEL 31 MEQ/L (21-32); CHLORIDE LEVEL 106 MEQ/L (98-107); CREATININE FOR GFR 1.05 MG/DL (0.70-1.30); GLOMERULAR FILTRATION RATE > 60.0 (>49); GLUCOSE, FASTING 120 MG/DL (80-110); POTASSIUM SERUM 4.2 MEQ/L (3.5-5.1); SODIUM LEVEL 145 MEQ/L (136-145)
--- NOTE | 2016-07-07 16:52 | ECGEPIP ---
Stationary ECG Study [facility] Test Date: 2016-07-07 Pat Name: MILA WEIR Department: Room: - Gender: M Lumber Straightened: SARAH : 1950 Requested By: Edvin Chappell Order Number: [id number] Reading MD: Ashely Richardson Measurements Intervals Stone Rate: 77 P: 14 WV: 162 QRS: 92 QRSD: 110 T: 24 QT: 409 QTc: 463 Interpretive Statements SINUS RHYTHM 1ST DEGREE BLOCK LOW VOLTAGE [place] STABLE C/W 05/24/16 Electronically Signed On 07-07-2016 16:51:56 EST by Ashely Richardson
== END ==
LOC: M LAB 09:31
PROVIDERS: ATTEND Ophthalmology
DX: Z01.818 Encounter for other preprocedural examination (principal); H25.13 Age-related nuclear cataract, bilateral

== ENCOUNTER 2016-09-02 15:14 | Inpatient (IN) | payer OTHER, MEDICARE ==
[~2016-09-02] VITALS: Ht 172.7 cm; Wt 64.0 kg
[~2016-09-02 15:14] MED LIST changes: +BACI500O74 TOP; -BACI50OI TOP
[2016-09-02] MEDS ORDERED: methylPREDNISolone INJ 125 MG/2 ML VIAL (J2930) IV ONE (15:45)
[2016-09-02 15:50] LABS: BASO # 0.1 K/mm3 (0.0-0.2); BASO % 0.6 % (0.0-1.0); EOS # 0.1 K/mm3 (0.0-0.50); EOS % 1.1 % (0.0-3.0); LARGE UNSTAINED CELL # 0.1 K/mm3 (0.0-0.4); LARGE UNSTAINED CELL % 0.5 % (0.0-4.0); LYMPH % 8.7 % (24.0-44.0); MEAN CORPUSCULAR HEMOGLOBIN 30.3 pg (27.0-33.0); MEAN CORPUSCULAR HGB CONC 32.5 g/dl (32.0-36.5); MEAN CORPUSCULAR VOLUME 93.3 fl (80.0-96.0); MONO # 0.4 K/mm3 (0.0-0.8); MONO % 3.9 % (0.0-5.0); NEUTROPHILS # 9.3 K/mm3 (1.8-7.7); NEUTROPHILS % 85.2 % (36.0-66.0); PLATELET COUNT, AUTOMATED 177 k/mm3 (150-450); RED CELL DISTRIBUTION WIDTH 13.2 % (11.5-14.5); WHITE BLOOD COUNT 10.9 K/mm3 (4.0-10.0)
[2016-09-02 15:59] LABS: ALBUMIN 3.9 GM/DL (3.2-5.2); ALBUMIN/GLOBULIN RATIO 1.05 (1.00-1.93); ALKALINE PHOSPHATASE 77 U/L (45-117); ALT/SGPT 33 U/L (12-78); AST/SGOT 23 U/L (15-37); BILIRUBIN,DIRECT < 0.1 MG/DL (0.0-0.2); BILIRUBIN,TOTAL 0.5 MG/DL (0.2-1.0); TOTAL PROTEIN 7.6 GM/DL (6.4-8.2)
[2016-09-02 16:01] LABS: ANION GAP 6 MEQ/L (8-16); BLOOD UREA NITROGEN 23 MG/DL (7-18); CALCIUM LEVEL 9.6 MG/DL (8.8-10.2); CARBON DIOXIDE LEVEL 31 MEQ/L (21-32); CHLORIDE LEVEL 109 MEQ/L (98-107); CREATININE FOR GFR 0.92 MG/DL (0.70-1.30); GLOMERULAR FILTRATION RATE > 60.0 (>49); GLUCOSE, FASTING 147 MG/DL (80-110); POTASSIUM SERUM 4.2 MEQ/L (3.5-5.1); SODIUM LEVEL 146 MEQ/L (136-145)
[2016-09-02] MEDS ORDERED: LABETALOL HCL 100 MG/20 ML VIAL IV STA (16:06)
[2016-09-02 16:15] LABS: ABG BASE EXCESS -3.2 (-2.0-2.0); ABG HCO3 24.4 MEQ/L (22.0-26.0); ABG PARTIAL PRESSURE CO2 53.8 mmHg (35.0-45.0); ABG STANDARD HCO3 21.8 MEQ/L (22.0-26.0); ABG pH (ARTERIAL) 7.274 UNITS (7.350-7.450)
[2016-09-02] MEDS ORDERED: MORPHINE 4 MG/ML 1ML SYRINGE IV ONE (16:15)
[2016-09-02] MEDS: IPRATROPIUM 0.5MG/ALBUTEROL 2.5MG INH SOL UD 3ML (DUONEB)(J7620) NEB PRN ×3 (16:15→16:17)
[2016-09-02 16:48] LABS: YEAST LIKE CELL URINE AUTO LARGE
[2016-09-02] MEDS ORDERED: ACETAMINOPHEN TAB 650MG DOSE (2X325MG) PO PRN (17:30)
--- NOTE | 2016-09-02 17:35 | REP ---
PORTABLE CHEST: REASON: Cough and dyspnea. COMPARISON: Multiple, latest 07/07/2016. The technique utilized in obtaining the radiograph has magnified the cardiac silhouette and accentuated the interstitial markings. Cardiomediastinal silhouette and lung mo are unchanged. No acute patchy parenchymal opacities or pleural effusions have developed. Note is again made of previous median sternotomy. There is no change in the osseous structures. IMPRESSION:No significant change. No plain radiographic evidence of acute cardiopulmonary disease. Signed by Sherif Ramos DO 09/03/2016 01:49 P
[2016-09-02] MEDS ORDERED: IPRATROPIUM 0.5MG/ALBUTEROL 2.5MG INH SOL UD 3ML (DUONEB)(J7620) NEB PRN (17:45)
[2016-09-02] MEDS ORDERED: DULC5TAB PO (17:45)
[2016-09-02] MEDS ORDERED: BISA10SU4 PR (17:46)
[2016-09-02] MEDS ORDERED: METO25TAB PO (17:46)
[2016-09-02] MEDS: HumaLOG INSULIN (NovoLOG) PER UNIT SC SCH (18:00)
[2016-09-02] MEDS ORDERED: FOLIC ACID 1 MG TAB PO ONE (18:30)
[2016-09-02] MEDS ORDERED: BISACODYL 5 MG TAB PO ONE (18:30)
[2016-09-02] MEDS ORDERED: LEVEMIR (INSULIN DETEMIR) 1 UNITS/0.01ML SC ONE (19:00)
--- NOTE | 2016-09-02 19:44 | HPE ---
DATE OF ADMISSION: 09/02/2016 I was called for critical care on this patient with rest respiratory failure. Mr. Talha Major is a [age]-year-old male with ALS who has gone from requiring BiPap at night to being dependent on BiPap continuously at home. He states that he can remove the BiPap for just a minute as he becomes too short of breath. It is not clear that he has a test designer following his noninvasive ventilation. However, he states he has many doctors at the [place]. His story is such that he was found to have shortness of breath and called the ambulance. The ambulance had brought him to the hospital on his usual BiPap settings. He was hypoxic, cyanotic, BiPap was adjusted in the emergency room. His initial blood gas then showed continued hypercarbic respiratory failure. He is now 114/5 with 60% FIO2 obtaining tidal volumes of 425 to 538. He is able to speak through the BiPap. I asked the patient if advance directives have been addressed and his prognosis and they were unsure. I asked if anyone had brought up the need for tracheostomy and they had said no. As this is my first encounter with the patient, it seemed clear that tracheostomy had not been mentioned. I spent over an hour at bedside, discussing his advancing neurologic disease. PAST MEDICAL HISTORY: 1. ALS. 2. Chronic obstructive pulmonary disease. 3. Respiratory failure from progressive neurologic illness with concomitant COPD. 4. History of coronary artery disease status post cabbage. 5. Hypertension. 6. Chronic indwelling Carter with reported UTIs. 7. Hypothyroidism. 8. Thoracic kyphosis. 9. Gout. 10. Hypothyroidism. 11. Diabetes. 12. Chronic constipation. FAMILY HISTORY: Not relevant to the situation. SOCIAL HISTORY: He has a 90 pack-year history of nicotine abuse. MEDICATIONS: Home medications included - Ventolin 2 puffs inhaled four times a day - Tylenol 650 mg every 6 hours as needed - allopurinol 100 mg twice a day - aspirin 81 mg by mouth daily - atorvastatin 40 mg by mouth at bedtime - baclofen 10 mg by mouth every 2 days - bisacodyl 5 mg daily - Dulcolax 10 mg per rectum once daily as needed - bupropion 150 mg by mouth daily - cetirizine 10 mg by mouth daily - vitamin D 1000 units by mouth twice a day - fenofibrate acid 130 mg by mouth at bedtime - Flonase 1 spray nasal three times a day - Folic acid 1 mg by mouth daily - Fematrol 20 mcg inhaled twice a day - furosemide 20 mg by mouth daily - hydroxyzine 25 mg at bedtime - insulin sliding scale has not been using quite some time (Lantus has been self decreased at 10 because his blood sugar has not been that high) - levothyroxine 75 mg daily - Mag-Ox 400 mg by mouth daily - metformin 1000 mg by mouth twice a day - metoprolol 25 mg by mouth twice a day - multivitamin 1 tablet by mouth at bedtime - nitroglycerin 0.4 mg subcu every 5 minutes as needed - [place] 3 fatty acid two caps by mouth twice a day - ondansetron 4 mg by mouth as needed - tamsulosin 0.8 mg by mouth at bedtime ALLERGIES: NIACIN. PHYSICAL EXAM: Temperature is 98.7, pulse is 90, respiratory rate is 18, blood pressure is 146/82. On admission blood pressure was 209/96. General: The patient appears weak with muscle wasting. He is on bilevel, speaking through the machine. HEENT: Sclerae clear and anicteric. Pupils equal, react to light. Mucous membranes are moist without lesions. Tongue is midline. NECK: Supple. No tracheal deviation. Minimal retractions. CARDIAC: Regular S1-S2 without audible murmur, rub or gallop. PMI is not elevated. No evidence of systemic edema. PULMONARY: Decreased breath sounds throughout both lung mo, short shallow breaths. No wheeze. No rhonchi. ABDOMEN: Soft, nontender, nondistended. There is a percutaneous endoscopic gastrostomy in the left upper quadrant without surrounding erythema or exudate. There is normoactive bowel sounds. EXTREMITIES: Significant muscle wasting. No swelling or edema. No cyanosis. SKIN: Is pale without rash, jaundice, bruising. LABORATORY EVALUATION: Shows minimal leukocytosis of 10.9, hemoglobin of 14.9, hematocrit of 46.0, platelet count 177, sodium 146, potassium 4.2, chloride 109, bicarb 30, 31, BUN 23, creatinine 0.92, glucose of 147, calcium 9.6, albumin 3.9, troponin is less than 0.02. Arterial blood gas shows pH of 7.27, pCO2 of 54 and pAO2 of 149. This was after his oxygen being increased to 60% FIO2. DIAGNOSTIC STUDIES: Chest x-ray shows decreased volumes no evidence of pneumonia. I agree with a formal radiologic interpretation. IMPRESSION: 1. Acute on chronic hypoxic hypercarbic respiratory failure. I suspect this is from progressive ALS given his history of previously being on oxygen during the day, then becoming BiPap dependant continuously over 24 hours. I have explained the risks of continuous BiPap over 24 hours at home and how this is unsafe, especially when eating. I believe his respiratory status has progressed to the point where he requires tracheostomy and invasive mechanical ventilation. If they wish to continue to pursue aggressive measures. He does have life-limiting diagnosis. I addressed advance directives with the patient today. At this point in time he wishes to be FULL CODE. They are deciding currently whether or not they want to continue with tracheostomy. That is the my ultimate recommendation if they wish to pursue aggressive care. 2. Hypertension. His hypertension improved. He did receive labetalol IV in the emergency room. However, it may have been simply that his blood pressure is elevated due to the severity of his respiratory failure. 3. Hypernatremia likely free water deficient. The patient does complain of thirst. 4. Diabetes. Will cover with sliding scale insulin and reduced levels Lantus. 5. ALS as mentioned above. I believe this is progressive and worsening in nature. 6. History of urine retention with chronic Carter. Will change of his Carter today. 7. Hypothyroidism. Will continue his Synthroid and check a TSH in the morning. 8. Hypertension. Will continue Lopressor. Monitor for need for additional medication. 9. Coronary artery disease status post coronary artery bypass graft. No evidence of acute myocardial infarction with a troponin less than 0.02. 10. History of gout. Will continue his allopurinol. 11. Nutrition. Due to his respiratory status, will start tube feeds through his percutaneous endoscopic gastrostomy tube.
[2016-09-02] MEDS: FORMOTEROL FUMARATE 20 MCG/2 ML INHALATION SOLUTION (PERFOROMIST) INH SCH (20:00)
[2016-09-02 20:30] VITALS: BP 154/74
[2016-09-02 21:00] VITALS: BP 134/69
[2016-09-02] MEDS: FLUTICASONE PROP 0.05% NASAL SPRAY 16 GM (FLONASE) SCH (21:00)
[2016-09-02 21:20] VITALS: BP 120/63
[2016-09-02] MEDS: METOPROLOL TART 25 MG TABLET PO SCH (21:21)
[2016-09-02] MEDS: PANTOPRAZOLE 40MG INJ (PROTONIX) (C9113) IV SCH (21:21)
[2016-09-02] MEDS: ALLOPURINOL 100 MG TAB PO SCH (21:21)
[2016-09-02 21:42] LABS: ABG BASE EXCESS -3.3 (-2.0-2.0); ABG HCO3 22.1 MEQ/L (22.0-26.0); ABG PARTIAL PRESSURE CO2 41.1 mmHg (35.0-45.0); ABG STANDARD HCO3 21.7 MEQ/L (22.0-26.0); ABG TOTAL CO2 23.3 MEQ/L (23.0-31.0); ABG pH (ARTERIAL) 7.348 UNITS (7.350-7.450)
[2016-09-02 22:01] VITALS: BP 111/57
[2016-09-02 23:40] VITALS: O2SAT 98
[2016-09-02] MEDS: IPRATROPIUM 0.5MG/ALBUTEROL 2.5MG INH SOL UD 3ML (DUONEB)(J7620) NEB SCH (23:40)
[2016-09-03] VITALS (12 sets, daily range): BP systolic 105–136; BP diastolic 51–71
[2016-09-03] MEDS: HumaLOG INSULIN (NovoLOG) PER UNIT SC SCH ×5 (00:15→23:28)
[2016-09-03 04:57] LABS: MEAN CORPUSCULAR HEMOGLOBIN 30.4 pg (27.0-33.0); MEAN CORPUSCULAR HGB CONC 33.5 g/dl (32.0-36.5); MEAN CORPUSCULAR VOLUME 90.6 fl (80.0-96.0); RED CELL DISTRIBUTION WIDTH 13.3 % (11.5-14.5); WHITE BLOOD COUNT 6.4 K/mm3 (4.0-10.0)
[2016-09-03 05:02] LABS: ALBUMIN 3.2 GM/DL (3.2-5.2); ALKALINE PHOSPHATASE 64 U/L (45-117); ALT/SGPT 25 U/L (12-78); ANION GAP 8 MEQ/L (8-16); AST/SGOT 13 U/L (15-37); BILIRUBIN,TOTAL 0.3 MG/DL (0.2-1.0); BLOOD UREA NITROGEN 28 MG/DL (7-18); CALCIUM LEVEL 9.2 MG/DL (8.8-10.2); CARBON DIOXIDE LEVEL 27 MEQ/L (21-32); CHLORIDE LEVEL 110 MEQ/L (98-107); CREATININE FOR GFR 1.07 MG/DL (0.70-1.30); GLOMERULAR FILTRATION RATE > 60.0 (>49); GLUCOSE, FASTING 170 MG/DL (80-110); MAGNESIUM LEVEL 1.8 MG/DL (1.8-2.4); POTASSIUM SERUM 4.5 MEQ/L (3.5-5.1); SODIUM LEVEL 145 MEQ/L (136-145); TOTAL PROTEIN 6.4 GM/DL (6.4-8.2)
[2016-09-03] MEDS: LEVOTHYROXINE 0.075 MG TAB (75 MCG) PO SCH (06:16)
[2016-09-03] MEDS: IPRATROPIUM 0.5MG/ALBUTEROL 2.5MG INH SOL UD 3ML (DUONEB)(J7620) NEB SCH ×4 (08:04→20:00)
[2016-09-03] MEDS: MULTIVITAMINS/MINERALS THERAP 1 TAB PO SCH (08:08)
[2016-09-03] MEDS: FOLIC ACID 1 MG TAB PO SCH (08:08)
[2016-09-03] MEDS: MAGNESIUM OXIDE 400 MG TAB (MAG-OX) PO SCH (08:08)
[2016-09-03] MEDS: BISACODYL 5 MG TAB PO SCH (08:08)
[2016-09-03] MEDS: ALLOPURINOL 100 MG TAB PO SCH ×2 (08:08→20:16)
[2016-09-03] MEDS: METOPROLOL TART 25 MG TABLET PO SCH ×2 (08:09→20:10)
[2016-09-03] MEDS: LEVEMIR (INSULIN DETEMIR) 1 UNITS/0.01ML SC SCH (08:10)
[2016-09-03] MEDS: ENOXAPARIN 30 MG/0.3 ML SYR (J1650) SC SCH (08:10)
[2016-09-03] MEDS: BACLOFEN 10 MG TAB PO SCH (08:55)
[2016-09-03] MEDS: buPROPion **SR TABLET** (ZYBAN) 150MG PO SCH (08:55)
[2016-09-03] MEDS: FLUTICASONE PROP 0.05% NASAL SPRAY 16 GM (FLONASE) SCH ×2 (08:55→20:16)
--- NOTE | 2016-09-03 11:04 | ECGEPIP ---
Stationary ECG Study [facility] - ED Test Date: 2016-09-02 Pat Name: MILA WEIR Department: Room: - Gender: M Math Professor: chris : 1950 Requested By: GREGG Schumacher Order Number: [id number] Reading MD: Samanta Prajapati Measurements Intervals [place] Rate: 92 P: 45 MN: 244 QRS: 85 QRSD: 114 T: 37 QT: 376 QTc: 467 Interpretive Statements SINUS RHYTHM WITH FIRST DEGREE AV BLOCK MODERATE INTRAVENTRICULAR CONDUCTION DELAY NSTTW ABNORMALITY Electronically Signed On 09-03-2016 11:03:48 EDT by Samanta Prajapati
--- NOTE | 2016-09-03 11:08 | IPN ---
DATE OF SERVICE: 09/03/2016 SUBJECTIVE: Mr. Major feels better this morning. His arterial blood gases corrected well on continuous bilevel. He is being fed through his peg tube. I believe there is unrealistic expectations from him and his family. I discussed the progressive nature of ALS. He does not appear to have a reversible cause of his respiratory failure. His lung volumes are low on his chest x-ray suggesting more ventilatory impairment rather than "COPD exacerbation" as the family suggests this might be. I have explained that as he has progressed at home and the fact that he is unable to be off BiPAP at all at home is an indication of progressive respiratory failure. His hypercarbia despite being on continuous BiPAP is also a sign. I have explained that his choices are comfort measures or tracheostomy with mechanical ventilation. I do not feel it is safe for him to go home on continuous BiPAP especially while trying to eat. I believe the family needs extensive counseling. I have reiterated the risks of continuous BiPAP at home and the likelihood of progression of his illness. The patient and family is still deciding whether or not to pursue tracheostomy and invasive mechanical ventilation. Vitals: Pulse of 61, blood pressure is 108/57, respiratory rate is 21, oxygen saturations 98% on 0.35 FiO2. The patient is on bilevel noninvasive therapy. General: The patient is alert, able to talk. He speaks fairly well through his mask. He states he is not ready for tracheostomy yet. HEENT: Sclerae clear, anicteric. Pupil equal and reactive to light. Mucous membranes are moist without lesions. Neck is supple. No tracheal deviation or mass. Pulmonary: Decreased breath sounds throughout. No rales, rhonchi or wheezes. No dullness to percussion. Cardiac: Regular S1, S2 without audible murmur, rub or gallop. PMI is displaced laterally. PEG tube is in place without surrounding erythema or exudate. Carter has been changed out. Abdomen: Soft, nontender, nondistended. No hepatosplenomegaly. No masses or hernia. Extremities: Significant muscle wasting. Laboratory evaluation shows a TSH of 0.8, hemoglobin of 12.4, white blood cell count of 6.4. Sodium is 145, potassium 4.5, chloride is 110, bicarb is 27, BUN of 28, creatinine of 1.07, glucose is 117. IMPRESSION: 66-year-old male with progressive neurologic weakness, respiratory failure from ventilatory impairment from ALS. There is no evidence of infection. No evidence of COPD exacerbation. Lung volumes a reduced suggesting restrictive impairment, nonobstructive impairment. His progression has been clear given his history. I do not believe it is safe for him to be on continuous BiPAP especially at home while eating. I recommend if they want to pursue more aggressive care that tracheostomy with PEG feedings be performed. The other alternative would be comfort measures. I have explained this again today. I am waiting a decision from the patient and the family. SIMONA
[2016-09-03] MEDS: FORMOTEROL FUMARATE 20 MCG/2 ML INHALATION SOLUTION (PERFOROMIST) INH SCH ×2 (11:27→19:46)
[2016-09-03] MEDS: PANTOPRAZOLE 40MG INJ (PROTONIX) (C9113) IV SCH (20:16)
[2016-09-04] VITALS (9 sets, daily range): BP systolic 97–158; BP diastolic 54–68
[2016-09-04 04:54] LABS: MEAN CORPUSCULAR HEMOGLOBIN 30.2 pg (27.0-33.0); MEAN CORPUSCULAR HGB CONC 32.7 g/dl (32.0-36.5); MEAN CORPUSCULAR VOLUME 92.6 fl (80.0-96.0); RED CELL DISTRIBUTION WIDTH 13.3 % (11.5-14.5); WHITE BLOOD COUNT 6.7 K/mm3 (4.0-10.0)
[2016-09-04] MEDS: HumaLOG INSULIN (NovoLOG) PER UNIT SC SCH ×4 (05:12→23:04)
[2016-09-04 05:13] LABS: ALBUMIN/GLOBULIN RATIO 1.15 (1.00-1.93); ALKALINE PHOSPHATASE 59 U/L (45-117); ALT/SGPT 23 U/L (12-78); ANION GAP 8 MEQ/L (8-16); AST/SGOT 13 U/L (15-37); BILIRUBIN,TOTAL 0.3 MG/DL (0.2-1.0); BLOOD UREA NITROGEN 29 MG/DL (7-18); CALCIUM LEVEL 8.8 MG/DL (8.8-10.2); CARBON DIOXIDE LEVEL 28 MEQ/L (21-32); CHLORIDE LEVEL 108 MEQ/L (98-107); CREATININE FOR GFR 1.01 MG/DL (0.70-1.30); GLOMERULAR FILTRATION RATE > 60.0 (>49); GLUCOSE, FASTING 147 MG/DL (80-110); MAGNESIUM LEVEL 1.8 MG/DL (1.8-2.4); POTASSIUM SERUM 3.7 MEQ/L (3.5-5.1); SODIUM LEVEL 144 MEQ/L (136-145); TOTAL PROTEIN 5.6 GM/DL (6.4-8.2)
[2016-09-04] MEDS: LEVOTHYROXINE 0.075 MG TAB (75 MCG) PO SCH (05:36)
[2016-09-04] MEDS: FORMOTEROL FUMARATE 20 MCG/2 ML INHALATION SOLUTION (PERFOROMIST) INH SCH ×2 (07:38→19:31)
[2016-09-04] MEDS: IPRATROPIUM 0.5MG/ALBUTEROL 2.5MG INH SOL UD 3ML (DUONEB)(J7620) NEB SCH ×4 (07:38→20:00)
[2016-09-04] MEDS: LEVEMIR (INSULIN DETEMIR) 1 UNITS/0.01ML SC SCH (08:22)
[2016-09-04] MEDS: ALLOPURINOL 100 MG TAB PO SCH ×2 (08:23→20:11)
[2016-09-04] MEDS: buPROPion **SR TABLET** (ZYBAN) 150MG PO SCH (08:23)
[2016-09-04] MEDS: ENOXAPARIN 30 MG/0.3 ML SYR (J1650) SC SCH (08:23)
[2016-09-04] MEDS: FOLIC ACID 1 MG TAB PO SCH (08:23)
[2016-09-04] MEDS: BISACODYL 5 MG TAB PO SCH (08:23)
[2016-09-04] MEDS: MAGNESIUM OXIDE 400 MG TAB (MAG-OX) PO SCH (08:23)
[2016-09-04] MEDS: MULTIVITAMINS/MINERALS THERAP 1 TAB PO SCH (08:23)
[2016-09-04] MEDS: FLUTICASONE PROP 0.05% NASAL SPRAY 16 GM (FLONASE) SCH ×2 (08:23→20:10)
[2016-09-04] MEDS: METOPROLOL TART 25 MG TABLET PO SCH (09:00)
[2016-09-04] MEDS: METOPROLOL TART 12.5 MG PER 1/2 TAB PO SCH (20:11)
[2016-09-04] MEDS: PANTOPRAZOLE 40MG INJ (PROTONIX) (C9113) IV SCH (20:11)
[2016-09-05] VITALS (8 sets, daily range): BP systolic 121–195; BP diastolic 58–84
[2016-09-05 04:37] LABS: MEAN CORPUSCULAR HEMOGLOBIN 30.4 pg (27.0-33.0); MEAN CORPUSCULAR HGB CONC 32.8 g/dl (32.0-36.5); MEAN CORPUSCULAR VOLUME 92.6 fl (80.0-96.0); WHITE BLOOD COUNT 6.7 K/mm3 (4.0-10.0)
[2016-09-05 04:55] LABS: ALBUMIN 3.3 GM/DL (3.2-5.2); ALKALINE PHOSPHATASE 70 U/L (45-117); ALT/SGPT 25 U/L (12-78); ANION GAP 8 MEQ/L (8-16); AST/SGOT 12 U/L (15-37); BILIRUBIN,TOTAL 0.4 MG/DL (0.2-1.0); BLOOD UREA NITROGEN 20 MG/DL (7-18); CARBON DIOXIDE LEVEL 29 MEQ/L (21-32); CHLORIDE LEVEL 105 MEQ/L (98-107); CREATININE FOR GFR 0.87 MG/DL (0.70-1.30); GLOMERULAR FILTRATION RATE > 60.0 (>49); GLUCOSE, FASTING 146 MG/DL (80-110); MAGNESIUM LEVEL 1.7 MG/DL (1.8-2.4); SODIUM LEVEL 142 MEQ/L (136-145); TOTAL PROTEIN 6.6 GM/DL (6.4-8.2)
[2016-09-05] MEDS: LEVOTHYROXINE 0.075 MG TAB (75 MCG) PO SCH (05:47)
[2016-09-05] MEDS: HumaLOG INSULIN (NovoLOG) PER UNIT SC SCH ×4 (05:47→23:12)
[2016-09-05] MEDS: FORMOTEROL FUMARATE 20 MCG/2 ML INHALATION SOLUTION (PERFOROMIST) INH SCH ×2 (07:45→20:49)
[2016-09-05] MEDS: IPRATROPIUM 0.5MG/ALBUTEROL 2.5MG INH SOL UD 3ML (DUONEB)(J7620) NEB SCH ×4 (07:45→20:00)
[2016-09-05] MEDS: FLUTICASONE PROP 0.05% NASAL SPRAY 16 GM (FLONASE) SCH ×2 (08:31→20:29)
[2016-09-05] MEDS: BACLOFEN 10 MG TAB PO SCH (08:31)
[2016-09-05] MEDS: LEVEMIR (INSULIN DETEMIR) 1 UNITS/0.01ML SC SCH (08:31)
[2016-09-05] MEDS: ENOXAPARIN 30 MG/0.3 ML SYR (J1650) SC SCH (08:31)
[2016-09-05] MEDS: MULTIVITAMINS/MINERALS THERAP 1 TAB PO SCH (08:31)
[2016-09-05] MEDS: FOLIC ACID 1 MG TAB PO SCH (08:32)
[2016-09-05] MEDS: BISACODYL 5 MG TAB PO SCH (08:32)
[2016-09-05] MEDS: MAGNESIUM OXIDE 400 MG TAB (MAG-OX) PO SCH (08:32)
[2016-09-05] MEDS: METOPROLOL TART 12.5 MG PER 1/2 TAB PO SCH ×2 (08:32→20:31)
[2016-09-05] MEDS: buPROPion **SR TABLET** (ZYBAN) 150MG PO SCH (08:32)
[2016-09-05] MEDS: ALLOPURINOL 100 MG TAB PO SCH ×2 (08:32→20:31)
[2016-09-05 09:51] LABS: ABG BASE EXCESS 1.4 (-2.0-2.0); ABG HCO3 26.1 MEQ/L (22.0-26.0); ABG PARTIAL PRESSURE CO2 41.8 mmHg (35.0-45.0); ABG PARTIAL PRESSURE O2 110.5 mmHg (75.0-100.0); ABG STANDARD HCO3 25.7 MEQ/L (22.0-26.0); ABG TOTAL CO2 27.4 MEQ/L (23.0-31.0); ABG pH (ARTERIAL) 7.414 UNITS (7.350-7.450)
[2016-09-05] MEDS: IPRATROPIUM 0.06% NASAL SPRAY 15 ML (ATROVENT) SCH ×2 (11:54→16:13)
[2016-09-05] MEDS: LORazepam 1 MG TAB PEG PRN ×2 (12:31→23:19)
[2016-09-05] MEDS ORDERED: SLF 3 ML SYR IV PRN (18:30)
[2016-09-05] MEDS: PANTOPRAZOLE 40MG INJ (PROTONIX) (C9113) IV SCH (20:29)
[2016-09-05] MEDS: SLF 3 ML SYR IV SCH (21:56)
[2016-09-06] VITALS (12 sets, daily range): BP systolic 112–155; BP diastolic 59–79
[2016-09-06 04:42] LABS: MEAN CORPUSCULAR HEMOGLOBIN 30.6 pg (27.0-33.0); MEAN CORPUSCULAR HGB CONC 33.2 g/dl (32.0-36.5); MEAN CORPUSCULAR VOLUME 92.1 fl (80.0-96.0); RED CELL DISTRIBUTION WIDTH 13.1 % (11.5-14.5); WHITE BLOOD COUNT 6.2 K/mm3 (4.0-10.0)
[2016-09-06 04:57] LABS: ALBUMIN/GLOBULIN RATIO 1.03 (1.00-1.93); ALKALINE PHOSPHATASE 71 U/L (45-117); ALT/SGPT 20 U/L (12-78); ANION GAP 6 MEQ/L (8-16); AST/SGOT 11 U/L (15-37); BILIRUBIN,TOTAL 0.4 MG/DL (0.2-1.0); BLOOD UREA NITROGEN 23 MG/DL (7-18); CALCIUM LEVEL 8.8 MG/DL (8.8-10.2); CARBON DIOXIDE LEVEL 30 MEQ/L (21-32); CHLORIDE LEVEL 106 MEQ/L (98-107); CREATININE FOR GFR 1.03 MG/DL (0.70-1.30); GLOMERULAR FILTRATION RATE > 60.0 (>49); GLUCOSE, FASTING 172 MG/DL (80-110); MAGNESIUM LEVEL 1.8 MG/DL (1.8-2.4); POTASSIUM SERUM 3.9 MEQ/L (3.5-5.1); SODIUM LEVEL 142 MEQ/L (136-145); TOTAL PROTEIN 5.9 GM/DL (6.4-8.2)
[2016-09-06] MEDS: SLF 3 ML SYR IV SCH ×3 (05:47→21:59)
[2016-09-06] MEDS: HumaLOG INSULIN (NovoLOG) PER UNIT SC SCH ×3 (05:47→17:29)
[2016-09-06] MEDS: LEVOTHYROXINE 0.075 MG TAB (75 MCG) PO SCH (05:47)
[2016-09-06] MEDS: FORMOTEROL FUMARATE 20 MCG/2 ML INHALATION SOLUTION (PERFOROMIST) INH SCH ×2 (07:53→20:19)
[2016-09-06] MEDS: IPRATROPIUM 0.5MG/ALBUTEROL 2.5MG INH SOL UD 3ML (DUONEB)(J7620) NEB SCH ×4 (07:53→20:00)
[2016-09-06] MEDS: ENOXAPARIN 30 MG/0.3 ML SYR (J1650) SC SCH (07:55)
[2016-09-06] MEDS ORDERED: NS 1,000 ML IV SCH (08:00)
[2016-09-06] MEDS: MAGNESIUM OXIDE 400 MG TAB (MAG-OX) PO SCH (08:06)
[2016-09-06] MEDS: BISACODYL 5 MG TAB PO SCH (08:06)
[2016-09-06] MEDS: buPROPion 75 MG TAB PO SCH ×2 (08:06→21:58)
[2016-09-06] MEDS: FOLIC ACID 1 MG TAB PO SCH (08:06)
[2016-09-06] MEDS: MULTIVITAMIN/MINERALS LIQUID 15ML ORAL SYRINGE GT SCH (08:06)
[2016-09-06] MEDS: ALLOPURINOL 100 MG TAB PO SCH ×2 (08:07→21:57)
[2016-09-06] MEDS: METOPROLOL TART 12.5 MG PER 1/2 TAB PO SCH ×2 (08:07→21:58)
[2016-09-06] MEDS: FLUTICASONE PROP 0.05% NASAL SPRAY 16 GM (FLONASE) SCH ×2 (08:16→21:58)
[2016-09-06] MEDS: LEVEMIR (INSULIN DETEMIR) 1 UNITS/0.01ML SC SCH (08:42)
[2016-09-06] MEDS: IPRATROPIUM 0.06% NASAL SPRAY 15 ML (ATROVENT) SCH ×4 (09:00→21:57)
[2016-09-06] MEDS ORDERED: LIDOCAINE W/EPINEPHRINE 1% 20ML VIAL As Ordered ONE (12:38)
[2016-09-06] MEDS ORDERED: MIDAZOLAM INJ 2 MG/2 ML VIAL (J2250) As Ordered ONE (14:23)
[2016-09-06] MEDS ORDERED: fentaNYL 100 MCG/2 ML INJECTION (J3010) As Ordered ONE ×3 (14:23→15:12)
[2016-09-06] MEDS ORDERED: NEOSTIGMINE 1MG/ML 5 ML SYRINGE (J2710) As Ordered ONE (14:24)
[2016-09-06] MEDS ORDERED: ONDANSETRON 4MG/2ML VIAL (J2405) As Ordered ONE (14:24)
[2016-09-06] MEDS ORDERED: LIDOCAINE 2% INJ 100 MG/5 ML SDV (FOR ANES.) As Ordered ONE (14:24)
[2016-09-06] MEDS ORDERED: GLYCOPYRROLATE INJ 0.2 MG/ML 2 ML VIAL As Ordered ONE (14:24)
[2016-09-06] MEDS ORDERED: PROPOFOL 200 MG/20 ML VIAL As Ordered ONE ×2 (14:24→14:46)
[2016-09-06] MEDS ORDERED: ROCURONIUM BROMIDE 50 MG/5 ML VIAL As Ordered ONE (14:24)
[2016-09-06] MEDS ORDERED: PHENYLephrine HCL 500 MCG/5 ML (100MCG/ML) SYRINGE (J2370) As Ordered ONE (14:38)
--- NOTE | 2016-09-06 15:10 | HPE ---
DATE OF ADMISSION: 09/02/2016 The patient is a 58-year-old male who presents with a history of amyotrophic lateral sclerosis. He has diabetes as well. He has respiratory failure and the family had expressed interest in having a tracheotomy. He is being fed by gastrostomy (G) tube feeding. He has had previous cardiac surgery. He is on aspirin and Lovenox. PHYSICAL EXAMINATION: Examination shows he is alert and oriented. Examination of the neck shows that it does not have much adipose tissue at all. There are no scars on his neck. IMPRESSION: The patient is admitted to the intensive care unit (ICU) with respiratory failure for amyotrophic lateral sclerosis. The patient's options were discussed with him. The patient opted for a tracheotomy so that will be done later today.
[2016-09-06] MEDS: fentaNYL 100 MCG/2 ML INJECTION (J3010) IV PRN ×4 (15:15→15:30)
[2016-09-06] MEDS ORDERED: ONDANSETRON 4MG/2ML VIAL (J2405) IV PRN (15:30)
[2016-09-06] MEDS ORDERED: LR 1,000 ML IV SCH (15:30)
[2016-09-06 17:09] LABS: ABG BASE EXCESS -3.1 (-2.0-2.0); ABG HCO3 21.9 MEQ/L (22.0-26.0); ABG PARTIAL PRESSURE CO2 39.2 mmHg (35.0-45.0); ABG PARTIAL PRESSURE O2 123.7 mmHg (75.0-100.0); ABG STANDARD HCO3 21.9 MEQ/L (22.0-26.0); ABG TOTAL CO2 23.1 MEQ/L (23.0-31.0); ABG pH (ARTERIAL) 7.365 UNITS (7.350-7.450)
[2016-09-06] MEDS: ACETAMINOPHEN 325 MG/10.15 ML UDC GT PRN ×2 (18:33→22:38)
[2016-09-06] MEDS: PANTOPRAZOLE 40MG INJ (PROTONIX) (C9113) IV SCH (21:58)
[2016-09-07] VITALS (11 sets, daily range): BP systolic 109–152; BP diastolic 55–74; O2SAT 92
[2016-09-07] MEDS: HumaLOG INSULIN (NovoLOG) PER UNIT SC SCH ×4 (00:13→18:48)
[2016-09-07] MEDS: ACETAMINOPHEN 325 MG/10.15 ML UDC GT PRN ×4 (02:23→20:48)
[2016-09-07 05:22] LABS: MEAN CORPUSCULAR HEMOGLOBIN 29.8 pg (27.0-33.0); MEAN CORPUSCULAR VOLUME 90.3 fl (80.0-96.0); RED CELL DISTRIBUTION WIDTH 12.9 % (11.5-14.5); WHITE BLOOD COUNT 9.5 K/mm3 (4.0-10.0)
[2016-09-07 05:39] LABS: ALBUMIN/GLOBULIN RATIO 1.11 (1.00-1.93); ALKALINE PHOSPHATASE 62 U/L (45-117); ALT/SGPT 20 U/L (12-78); ANION GAP 8 MEQ/L (8-16); AST/SGOT 11 U/L (15-37); BILIRUBIN,TOTAL 0.4 MG/DL (0.2-1.0); BLOOD UREA NITROGEN 15 MG/DL (7-18); CALCIUM LEVEL 8.5 MG/DL (8.8-10.2); CARBON DIOXIDE LEVEL 26 MEQ/L (21-32); CHLORIDE LEVEL 104 MEQ/L (98-107); CREATININE FOR GFR 0.77 MG/DL (0.70-1.30); GLOMERULAR FILTRATION RATE > 60.0 (>49); GLUCOSE, FASTING 145 MG/DL (80-110); MAGNESIUM LEVEL 1.5 MG/DL (1.8-2.4); SODIUM LEVEL 138 MEQ/L (136-145); TOTAL PROTEIN 5.7 GM/DL (6.4-8.2)
[2016-09-07] MEDS: LEVOTHYROXINE 0.075 MG TAB (75 MCG) PO SCH (05:48)
[2016-09-07] MEDS: SLF 3 ML SYR IV SCH ×3 (05:49→22:00)
[2016-09-07 06:22] LABS: ABG BASE EXCESS -1.1 (-2.0-2.0); ABG HCO3 22.9 MEQ/L (22.0-26.0); ABG PARTIAL PRESSURE CO2 35.8 mmHg (35.0-45.0); ABG PARTIAL PRESSURE O2 158.4 mmHg (75.0-100.0); ABG STANDARD HCO3 23.6 MEQ/L (22.0-26.0); ABG pH (ARTERIAL) 7.424 UNITS (7.350-7.450)
[2016-09-07] MEDS: FORMOTEROL FUMARATE 20 MCG/2 ML INHALATION SOLUTION (PERFOROMIST) INH SCH ×2 (07:27→20:31)
[2016-09-07] MEDS: IPRATROPIUM 0.5MG/ALBUTEROL 2.5MG INH SOL UD 3ML (DUONEB)(J7620) NEB SCH ×4 (07:27→20:00)
[2016-09-07] MEDS: MULTIVITAMIN/MINERALS LIQUID 15ML ORAL SYRINGE GT SCH (09:22)
[2016-09-07] MEDS: LEVEMIR (INSULIN DETEMIR) 1 UNITS/0.01ML SC SCH (09:23)
[2016-09-07] MEDS: IPRATROPIUM 0.06% NASAL SPRAY 15 ML (ATROVENT) SCH ×3 (09:23→20:47)
[2016-09-07] MEDS: FLUTICASONE PROP 0.05% NASAL SPRAY 16 GM (FLONASE) SCH ×2 (09:23→20:46)
[2016-09-07] MEDS: ALLOPURINOL 100 MG TAB PO SCH ×2 (09:24→20:45)
[2016-09-07] MEDS: MAGNESIUM OXIDE 400 MG TAB (MAG-OX) PO SCH (09:24)
[2016-09-07] MEDS: FOLIC ACID 1 MG TAB PO SCH (09:24)
[2016-09-07] MEDS: BACLOFEN 10 MG TAB PO SCH (09:24)
[2016-09-07] MEDS: METOPROLOL TART 12.5 MG PER 1/2 TAB PO SCH ×2 (09:24→20:46)
[2016-09-07] MEDS: buPROPion 75 MG TAB PO SCH ×2 (09:24→20:46)
--- NOTE | 2016-09-07 10:58 | RO ---
DATE OF PROCEDURE: 09/02/2016 PREPROCEDURE DIAGNOSIS: Respiratory failure. POSTPROCEDURE DIAGNOSIS: Respiratory failure. OPERATIVE PROCEDURE: Tracheostomy. SURGEON: Casey Porter MD KEYBOARDING CLERK: Dr. Ruiz ANESTHESIA: DESCRIPTION OF PROCEDURE: Under general anesthesia with the patient intubated, the patient was draped in the usual manner. The area was infiltrated with Lidocaine and epinephrine. I made an incision just below the cricoid. I divided the skin, subcutaneous, and platysma. I then divided the strap muscles in the midline. Once they were divided, then I could palpate the cricoid well. Just below the cricoid, there was thyroid isthmus. Using sharp and blunt dissection, I clamped, divided, and tied off the thyroid isthmus. Once that was done, then I inserted a cricoid ____hook just below the cricoid. I used that to elevate the trachea. Then I entered just below the second tracheal ring and made a cut through the third tracheal ring and then opened up into the trachea. The endotracheal tube was retracted. I suctioned the airway. The area was dried. I inserted a #6 Shiley fenestrated cuffed tracheotomy tube. It was in place and the endotracheal tube was removed. The trach tube was then sutured with #3-0 silk. The dressing was applied. The patient was then woken up and transferred to the recovery room in excellent condition. Blood loss less than 1 mL. MTDD
[2016-09-07] MEDS: LORazepam 1 MG TAB PEG PRN ×2 (13:37→20:46)
[2016-09-08] VITALS (7 sets, daily range): BP systolic 137–150; BP diastolic 67–75; O2SAT 94
[2016-09-08] MEDS: HumaLOG INSULIN (NovoLOG) PER UNIT SC SCH ×4 (00:19→18:17)
[2016-09-08] MEDS: PERCOCET 5MG/325MG TAB PO PRN ×4 (00:21→14:04)
[2016-09-08] MEDS: LORazepam 1 MG TAB PEG PRN ×4 (03:39→20:51)
[2016-09-08 05:05] LABS: MEAN CORPUSCULAR HEMOGLOBIN 30.5 pg (27.0-33.0); MEAN CORPUSCULAR HGB CONC 34.4 g/dl (32.0-36.5); MEAN CORPUSCULAR VOLUME 88.9 fl (80.0-96.0); RED CELL DISTRIBUTION WIDTH 13.3 % (11.5-14.5); WHITE BLOOD COUNT 7.1 K/mm3 (4.0-10.0)
[2016-09-08 05:29] LABS: ALBUMIN 2.9 GM/DL (3.2-5.2); ALBUMIN/GLOBULIN RATIO 0.97 (1.00-1.93); ALKALINE PHOSPHATASE 76 U/L (45-117); ALT/SGPT 38 U/L (12-78); ANION GAP 6 MEQ/L (8-16); AST/SGOT 19 U/L (15-37); BILIRUBIN,TOTAL 0.5 MG/DL (0.2-1.0); BLOOD UREA NITROGEN 13 MG/DL (7-18); CALCIUM LEVEL 8.6 MG/DL (8.8-10.2); CARBON DIOXIDE LEVEL 29 MEQ/L (21-32); CHLORIDE LEVEL 104 MEQ/L (98-107); CREATININE FOR GFR 0.73 MG/DL (0.70-1.30); GLOMERULAR FILTRATION RATE > 60.0 (>49); GLUCOSE, FASTING 155 MG/DL (80-110); MAGNESIUM LEVEL 1.5 MG/DL (1.8-2.4); POTASSIUM SERUM 3.8 MEQ/L (3.5-5.1); SODIUM LEVEL 139 MEQ/L (136-145); TOTAL PROTEIN 5.9 GM/DL (6.4-8.2)
[2016-09-08] MEDS: SLF 3 ML SYR IV SCH ×3 (06:00→20:19)
[2016-09-08] MEDS: LEVOTHYROXINE 0.075 MG TAB (75 MCG) PO SCH (06:15)
[2016-09-08] MEDS: BISACODYL 10 MG SUPP PR PRN (06:16)
[2016-09-08] MEDS: FORMOTEROL FUMARATE 20 MCG/2 ML INHALATION SOLUTION (PERFOROMIST) INH SCH ×2 (07:16→20:26)
[2016-09-08] MEDS: IPRATROPIUM 0.5MG/ALBUTEROL 2.5MG INH SOL UD 3ML (DUONEB)(J7620) NEB SCH ×4 (07:16→20:00)
[2016-09-08] MEDS: METOPROLOL TART 12.5 MG PER 1/2 TAB PO SCH ×2 (08:13→20:18)
[2016-09-08] MEDS: LEVEMIR (INSULIN DETEMIR) 1 UNITS/0.01ML SC SCH (08:13)
[2016-09-08] MEDS: MULTIVITAMIN/MINERALS LIQUID 15ML ORAL SYRINGE GT SCH (08:13)
[2016-09-08] MEDS: ALLOPURINOL 100 MG TAB PO SCH ×2 (08:14→20:19)
[2016-09-08] MEDS: FOLIC ACID 1 MG TAB PO SCH (08:14)
[2016-09-08] MEDS: FLUTICASONE PROP 0.05% NASAL SPRAY 16 GM (FLONASE) SCH ×2 (08:14→20:19)
[2016-09-08] MEDS: MAGNESIUM OXIDE 400 MG TAB (MAG-OX) PO SCH (08:14)
[2016-09-08] MEDS: buPROPion 75 MG TAB PO SCH ×2 (08:14→20:18)
[2016-09-08] MEDS: IPRATROPIUM 0.06% NASAL SPRAY 15 ML (ATROVENT) SCH ×2 (09:00→18:17)
--- NOTE | 2016-09-08 16:45 | REP ---
PORTABLE CHEST: AP portable view of the chest is performed and compared to prior study of 09/02/2016. There is a tracheostomy tube. Bibasilar interstitial changes are stable. No new infiltrates or pulmonary edema is seen. Cardiomediastinal silhouette is unchanged. There are multiple sternal wire and mediastinal clips present. IMPRESSION: Tracheostomy tube. Stable appearance of the lungs. Signed by Sean Damico MD 09/08/2016 05:00 P
[2016-09-08] MEDS: ACETAMINOPHEN 325 MG/10.15 ML UDC GT PRN (20:18)
[2016-09-09] VITALS (10 sets, daily range): BP systolic 114–147; BP diastolic 62–92; O2SAT 91–98
[2016-09-09] MEDS: HumaLOG INSULIN (NovoLOG) PER UNIT SC SCH ×4 (00:13→18:13)
[2016-09-09] MEDS: ACETAMINOPHEN 325 MG/10.15 ML UDC GT PRN ×2 (00:23→04:52)
[2016-09-09] MEDS: LORazepam 1 MG TAB PEG PRN ×2 (02:17→21:49)
[2016-09-09] MEDS: PERCOCET 5MG/325MG TAB PO PRN ×2 (02:20→15:08)
[2016-09-09] MEDS: IPRATROPIUM 0.06% NASAL SPRAY 15 ML (ATROVENT) SCH ×2 (04:15→09:37)
[2016-09-09 04:40] LABS: MEAN CORPUSCULAR HEMOGLOBIN 30.5 pg (27.0-33.0); MEAN CORPUSCULAR HGB CONC 34.2 g/dl (32.0-36.5); MEAN CORPUSCULAR VOLUME 89.1 fl (80.0-96.0); RED CELL DISTRIBUTION WIDTH 13.4 % (11.5-14.5); WHITE BLOOD COUNT 7.8 K/mm3 (4.0-10.0)
[2016-09-09 05:04] LABS: ALBUMIN 2.8 GM/DL (3.2-5.2); ALBUMIN/GLOBULIN RATIO 0.82 (1.00-1.93); ALKALINE PHOSPHATASE 83 U/L (45-117); ALT/SGPT 40 U/L (12-78); ANION GAP 7 MEQ/L (8-16); AST/SGOT 17 U/L (15-37); BILIRUBIN,TOTAL 0.3 MG/DL (0.2-1.0); BLOOD UREA NITROGEN 14 MG/DL (7-18); CALCIUM LEVEL 8.7 MG/DL (8.8-10.2); CARBON DIOXIDE LEVEL 27 MEQ/L (21-32); CHLORIDE LEVEL 104 MEQ/L (98-107); CREATININE FOR GFR 0.77 MG/DL (0.70-1.30); GLOMERULAR FILTRATION RATE > 60.0 (>49); GLUCOSE, FASTING 197 MG/DL (80-110); MAGNESIUM LEVEL 1.7 MG/DL (1.8-2.4); SODIUM LEVEL 138 MEQ/L (136-145); TOTAL PROTEIN 6.2 GM/DL (6.4-8.2)
[2016-09-09] MEDS: LEVOTHYROXINE 0.075 MG TAB (75 MCG) PO SCH (05:56)
[2016-09-09] MEDS: SLF 3 ML SYR IV SCH ×3 (05:57→21:43)
[2016-09-09] MEDS: IPRATROPIUM 0.5MG/ALBUTEROL 2.5MG INH SOL UD 3ML (DUONEB)(J7620) NEB SCH ×4 (08:00→19:35)
[2016-09-09] MEDS: FORMOTEROL FUMARATE 20 MCG/2 ML INHALATION SOLUTION (PERFOROMIST) INH SCH ×2 (08:12→19:44)
[2016-09-09] MEDS: MAGNESIUM OXIDE 400 MG TAB (MAG-OX) PO SCH (09:00)
[2016-09-09] MEDS: BACLOFEN 10 MG TAB PO SCH (09:34)
[2016-09-09] MEDS: MULTIVITAMIN/MINERALS LIQUID 15ML ORAL SYRINGE GT SCH (09:34)
[2016-09-09] MEDS: ALLOPURINOL 100 MG TAB PO SCH ×2 (09:34→21:33)
[2016-09-09] MEDS: METOPROLOL TART 12.5 MG PER 1/2 TAB PO SCH ×2 (09:35→21:32)
[2016-09-09] MEDS: FOLIC ACID 1 MG TAB PO SCH (09:35)
[2016-09-09] MEDS: buPROPion 75 MG TAB PO SCH ×2 (09:35→21:33)
[2016-09-09] MEDS: LEVEMIR (INSULIN DETEMIR) 1 UNITS/0.01ML SC SCH (09:36)
[2016-09-09] MEDS: FLUTICASONE PROP 0.05% NASAL SPRAY 16 GM (FLONASE) SCH ×2 (09:37→21:33)
[2016-09-09] MEDS ORDERED: MIDAZOLAM INJ 2 MG/2 ML VIAL (J2250) As Ordered ONE ×2 (10:35→10:36)
[2016-09-09] MEDS ORDERED: LIDOCAINE W/EPINEPHRINE 1% 20ML VIAL As Ordered ONE (10:46)
[2016-09-09] MEDS ORDERED: MIDAZOLAM INJ 2 MG/2 ML VIAL (J2250) IV PRN (11:30)
[2016-09-09] MEDS ORDERED: fentaNYL 100 MCG/2 ML INJECTION (J3010) As Ordered ONE (11:45)
[2016-09-09 12:39] LABS: ABG BASE EXCESS -2.2 (-2.0-2.0); ABG PARTIAL PRESSURE CO2 41.1 mmHg (35.0-45.0); ABG PARTIAL PRESSURE O2 67.1 mmHg (75.0-100.0); ABG STANDARD HCO3 22.5 MEQ/L (22.0-26.0); ABG TOTAL CO2 24.3 MEQ/L (23.0-31.0); ABG pH (ARTERIAL) 7.366 UNITS (7.350-7.450)
--- NOTE | 2016-09-09 13:45 | REP ---
PORTABLE CHEST X-RAY: Single view. HISTORY: New tracheostomy tube. Comparison study is from the previous day. FINDINGS: Tracheostomy tube is seen in good position overlying or within the trachea. However, there is new subcutaneous emphysema in the soft tissues outside of the chest in the supraclavicular region bilaterally. There is a new right-sided pneumothorax on this supine chest x-ray with pleural air collection extending from the apex to the base. There is air in the mediastinal soft tissues consistent with pneumomediastinum. No pneumopericardium is seen. Left hemidiaphragm is not well seen. There are some overlapping oxygen delivery tubing was. IMPRESSION: Tracheostomy tube appears in good position. New right-sided pneumothorax. New pneumomediastinum and soft tissue emphysema in the supraclavicular and neck soft tissues bilaterally. Signed by Lionel Morel MD 09/09/2016 01:47 P
--- NOTE | 2016-09-09 18:09 | CCN ---
DATE: 09/09/2016 CRITICAL CARE NOTE: I was called stat to the intensive care unit as the patient had just returned to his bed from the commode when the ventilator alarmed high pressure and it became apparent that the patient's tracheostomy tube had become displaced. Oxygen was applied. I attempted to visualize the tube position with a bronchoscope but there was no lumen. Direct laryngoscopy was performed using a GlideScope and the glottis was visualized. A #8 endotracheal tube was placed by anesthesiology to 25 cm with resumption of good breath sounds bilaterally. The tube was secured in place. Oxygen saturation was checked and found to be 89-92. Bag tube ventilation ensued. The operating room was notified as was the ENT service. Once the airway had been stabilized I accompanied the patient to the operating room where the tracheostomy tube was replaced by the ENT service and a tight tie was made to keep the tube in place. The patient has now returned to the intensive care unit. We will plan to stabilize him here, check an arterial blood gas and chest x-ray prior to attempts to wean him back to his home ventilator. I have informed the patient's family of the above. 1 hour and 15 minutes was spent in the provision of bedside critical care exclusive of any procedure time.
--- NOTE | 2016-09-09 19:16 | REP ---
Portable chest x-ray: Single view: History: Right-sided pneumothorax. Compared with the 12 p.m. film from this date. Findings: The right-sided pneumothorax is again seen and is felt to be unchanged and small. There is some discoid atelectasis in the right base unchanged. On the current examination there is also evidence of a very tiny left apical pneumothorax. This may have been present on the earlier film overlying the second rib. There is less subcutaneous emphysema visible on the current film. There is still some pneumomediastinum. Impression: Small bilateral pneumothoraces, small on the right and stable. Tiny on the left. Right basilar discoid atelectasis. Pneumomediastinum. Decreased soft tissue emphysema outside the chest. Signed by Lionel Morel MD 09/09/2016 08:47 P
[2016-09-10] VITALS (12 sets, daily range): BP systolic 102–159; BP diastolic 53–81; O2SAT 94–96
[2016-09-10] MEDS: HumaLOG INSULIN (NovoLOG) PER UNIT SC SCH ×4 (00:11→18:19)
[2016-09-10 04:34] LABS: BASO % 0.3 % (0.0-1.0); EOS # 0.2 K/mm3 (0.0-0.50); EOS % 3.3 % (0.0-3.0); LARGE UNSTAINED CELL # 0.2 K/mm3 (0.0-0.4); LARGE UNSTAINED CELL % 2.1 % (0.0-4.0); LYMPH # 1.1 K/mm3 (1.5-4.5); LYMPH % 15.8 % (24.0-44.0); MEAN CORPUSCULAR HEMOGLOBIN 30.5 pg (27.0-33.0); MEAN CORPUSCULAR HGB CONC 33.3 g/dl (32.0-36.5); MEAN CORPUSCULAR VOLUME 91.7 fl (80.0-96.0); MONO # 0.6 K/mm3 (0.0-0.8); MONO % 7.8 % (0.0-5.0); NEUTROPHILS % 70.6 % (36.0-66.0); PLATELET COUNT, AUTOMATED 135 k/mm3 (150-450); RED CELL DISTRIBUTION WIDTH 13.2 % (11.5-14.5); WHITE BLOOD COUNT 7.1 K/mm3 (4.0-10.0)
[2016-09-10 05:08] LABS: ALBUMIN 2.6 GM/DL (3.2-5.2); ALBUMIN/GLOBULIN RATIO 0.84 (1.00-1.93); ALKALINE PHOSPHATASE 82 U/L (45-117); ALT/SGPT 37 U/L (12-78); ANION GAP 6 MEQ/L (8-16); AST/SGOT 14 U/L (15-37); BILIRUBIN,TOTAL 0.3 MG/DL (0.2-1.0); BLOOD UREA NITROGEN 17 MG/DL (7-18); CALCIUM LEVEL 8.8 MG/DL (8.8-10.2); CARBON DIOXIDE LEVEL 27 MEQ/L (21-32); CHLORIDE LEVEL 104 MEQ/L (98-107); CREATININE FOR GFR 0.75 MG/DL (0.70-1.30); GLOMERULAR FILTRATION RATE > 60.0 (>49); GLUCOSE, FASTING 207 MG/DL (80-110); POTASSIUM SERUM 4.1 MEQ/L (3.5-5.1); SODIUM LEVEL 137 MEQ/L (136-145); TOTAL PROTEIN 5.7 GM/DL (6.4-8.2)
[2016-09-10] MEDS: LEVOTHYROXINE 0.075 MG TAB (75 MCG) PO SCH (05:58)
[2016-09-10] MEDS: SLF 3 ML SYR IV SCH ×3 (06:00→20:37)
[2016-09-10] MEDS: FORMOTEROL FUMARATE 20 MCG/2 ML INHALATION SOLUTION (PERFOROMIST) INH SCH ×2 (07:53→19:33)
[2016-09-10] MEDS: IPRATROPIUM 0.5MG/ALBUTEROL 2.5MG INH SOL UD 3ML (DUONEB)(J7620) NEB SCH ×4 (07:54→19:21)
[2016-09-10] MEDS: IPRATROPIUM 0.06% NASAL SPRAY 15 ML (ATROVENT) SCH ×3 (08:25→21:00)
[2016-09-10] MEDS: MULTIVITAMIN/MINERALS LIQUID 15ML ORAL SYRINGE GT SCH (08:25)
[2016-09-10] MEDS: FLUTICASONE PROP 0.05% NASAL SPRAY 16 GM (FLONASE) SCH ×2 (08:25→20:37)
[2016-09-10] MEDS: METOPROLOL TART 12.5 MG PER 1/2 TAB PO SCH ×2 (08:26→20:36)
[2016-09-10] MEDS: FOLIC ACID 1 MG TAB PO SCH (08:26)
[2016-09-10] MEDS: LEVEMIR (INSULIN DETEMIR) 1 UNITS/0.01ML SC SCH (08:26)
[2016-09-10] MEDS: buPROPion 75 MG TAB PO SCH ×2 (08:27→21:00)
[2016-09-10] MEDS: MAGNESIUM OXIDE 400 MG TAB (MAG-OX) PO SCH (08:27)
[2016-09-10] MEDS: ALLOPURINOL 100 MG TAB PO SCH ×2 (08:27→20:36)
[2016-09-10] MEDS: LORazepam 1 MG TAB PEG PRN ×2 (08:27→19:52)
--- NOTE | 2016-09-10 09:59 | REP ---
PORTABLE CHEST: AP portable view of the chest is performed and compared to a prior study of 09/09/2016. Small right apical pneumothorax is unchanged. Bibasilar parenchymal opacities appear unchanged. There is no change in the cardiomediastinal silhouette. There is a tracheostomy tube again noted as well as multiple sternal wires and mediastinal clips. IMPRESSION: Stable exam. Signed by Sean Damico MD 09/10/2016 07:57 P
[2016-09-10] MEDS: PERCOCET 5MG/325MG TAB PO PRN ×2 (14:11→22:18)
--- NOTE | 2016-09-10 14:13 | RO ---
DATE OF PROCEDURE: 09/09/2016 PREPROCEDURE DIAGNOSIS: Respiratory failure. POSTPROCEDURE DIAGNOSIS: Respiratory failure. OPERATIVE PROCEDURE: Exploration of neck and replacement of trach tube. SURGEON: Casey Porter MD WAITER/WAITRESS TAVERN: ANESTHESIA: DESCRIPTION OF PROCEDURE: The patient had the tracheotomy tube come out and the patient had some airway difficulty and they could not put the tube back in. The patient was intubated in the intensive care unit (ICU). Under general anesthesia, I removed the tracheotomy tube. I suctioned the area. Everything looked very good. I elevated the cricoid again. This time I put some silk sutures through the third tracheal ring, which had been cut. The endotracheal tube was removed and a new trach tube was placed and sutured in. I used trach ties. The patient tolerated the procedure well, and then was transferred to the recovery room in excellent condition.
[2016-09-11] VITALS (13 sets, daily range): BP systolic 119–164; BP diastolic 62–79; O2SAT 93–97
[2016-09-11] MEDS: HumaLOG INSULIN (NovoLOG) PER UNIT SC SCH ×5 (00:06→23:32)
[2016-09-11] MEDS: PERCOCET 5MG/325MG TAB PO PRN (03:45)
[2016-09-11 04:32] LABS: BASO % 0.3 % (0.0-1.0); EOS # 0.2 K/mm3 (0.0-0.50); EOS % 3.2 % (0.0-3.0); LARGE UNSTAINED CELL # 0.1 K/mm3 (0.0-0.4); LARGE UNSTAINED CELL % 1.8 % (0.0-4.0); LYMPH # 1.1 K/mm3 (1.5-4.5); LYMPH % 16.9 % (24.0-44.0); MEAN CORPUSCULAR HEMOGLOBIN 30.5 pg (27.0-33.0); MEAN CORPUSCULAR HGB CONC 33.6 g/dl (32.0-36.5); MEAN CORPUSCULAR VOLUME 90.8 fl (80.0-96.0); MONO # 0.4 K/mm3 (0.0-0.8); MONO % 6.1 % (0.0-5.0); NEUTROPHILS # 4.7 K/mm3 (1.8-7.7); NEUTROPHILS % 71.6 % (36.0-66.0); PLATELET COUNT, AUTOMATED 151 k/mm3 (150-450); RED CELL DISTRIBUTION WIDTH 13.1 % (11.5-14.5); WHITE BLOOD COUNT 6.6 K/mm3 (4.0-10.0)
[2016-09-11 05:06] LABS: ALBUMIN 2.8 GM/DL (3.2-5.2); ALBUMIN/GLOBULIN RATIO 0.82 (1.00-1.93); ALKALINE PHOSPHATASE 93 U/L (45-117); ALT/SGPT 35 U/L (12-78); ANION GAP 7 MEQ/L (8-16); AST/SGOT 14 U/L (15-37); BILIRUBIN,TOTAL 0.3 MG/DL (0.2-1.0); BLOOD UREA NITROGEN 15 MG/DL (7-18); CALCIUM LEVEL 9.1 MG/DL (8.8-10.2); CARBON DIOXIDE LEVEL 31 MEQ/L (21-32); CHLORIDE LEVEL 103 MEQ/L (98-107); CREATININE FOR GFR 0.71 MG/DL (0.70-1.30); GLOMERULAR FILTRATION RATE > 60.0 (>49); GLUCOSE, FASTING 199 MG/DL (80-110); POTASSIUM SERUM 4.2 MEQ/L (3.5-5.1); SODIUM LEVEL 141 MEQ/L (136-145); TOTAL PROTEIN 6.2 GM/DL (6.4-8.2)
[2016-09-11] MEDS: LEVOTHYROXINE 0.075 MG TAB (75 MCG) PO SCH (05:15)
[2016-09-11] MEDS: SLF 3 ML SYR IV SCH ×3 (05:16→20:47)
[2016-09-11] MEDS: IPRATROPIUM 0.5MG/ALBUTEROL 2.5MG INH SOL UD 3ML (DUONEB)(J7620) NEB SCH ×4 (08:00→19:16)
[2016-09-11] MEDS: MULTIVITAMIN/MINERALS LIQUID 15ML ORAL SYRINGE GT SCH (08:10)
[2016-09-11] MEDS: MAGNESIUM OXIDE 400 MG TAB (MAG-OX) PO SCH (08:10)
[2016-09-11] MEDS: buPROPion 75 MG TAB PO SCH ×2 (08:10→20:44)
[2016-09-11] MEDS: METOPROLOL TART 12.5 MG PER 1/2 TAB PO SCH ×2 (08:11→20:46)
[2016-09-11] MEDS: ALLOPURINOL 100 MG TAB PO SCH ×2 (08:11→20:45)
[2016-09-11] MEDS: LEVEMIR (INSULIN DETEMIR) 1 UNITS/0.01ML SC SCH (08:11)
[2016-09-11] MEDS: FOLIC ACID 1 MG TAB PO SCH (08:11)
[2016-09-11] MEDS: FORMOTEROL FUMARATE 20 MCG/2 ML INHALATION SOLUTION (PERFOROMIST) INH SCH ×2 (08:27→19:36)
[2016-09-11] MEDS: FLUTICASONE PROP 0.05% NASAL SPRAY 16 GM (FLONASE) SCH ×2 (09:00→20:46)
[2016-09-11] MEDS: ALPRAZolam 0.25 MG TAB PO SCH ×3 (09:00→20:45)
[2016-09-11] MEDS: BACLOFEN 10 MG TAB PO SCH ×2 (09:00→10:57)
--- NOTE | 2016-09-11 10:15 | REP ---
PORTABLE CHEST: AP portable view of the chest is performed and compared to prior study of 09/10/2016. Tracheostomy tube is again noted. Cardiomediastinal silhouette is unchanged. There are bibasilar opacities which are stable. Small right pneumothorax is unchanged. IMPRESSION: Stable exam. Signed by Sean Damico MD 09/11/2016 07:45 P
[2016-09-11] MEDS: LORazepam 1 MG TAB PEG PRN (10:57)
[2016-09-11] MEDS ORDERED: ONDANSETRON 4 MG TAB (S0181) PO PRN (11:45)
[2016-09-11] MEDS: IPRATROPIUM 0.06% NASAL SPRAY 15 ML (ATROVENT) SCH ×2 (12:13→21:00)
--- NOTE | 2016-09-11 19:00 | ECGEPIP ---
Stationary ECG Study [facility] Test Date: 2016-09-11 Pat Name: MILA WEIR Department: Room: [place] [address] Gender: M Transportation Clerk: VANESA : 1950 Requested By: Quan HANNAH Order Number: [id number] Reading MD: Edvin Aguilera Measurements Intervals [place] Rate: 94 P: 129 AK: 207 QRS: 89 QRSD: 93 T: 104 QT: 359 QTc: 450 Interpretive Statements Sinus rhythm, limb lead reversal. Slight 1st degree AV block. LOW QRS VOLTAGE IN PRECORDIAL LEADS Decreased precordial voltages compared with 09/02/2016. Electronically Signed On 09-11-2016 19:00:11 EDT by Edvin Aguilera
[2016-09-12] VITALS (12 sets, daily range): BP systolic 111–138; BP diastolic 60–75; O2SAT 93–96
[2016-09-12] MEDS: LORazepam 1 MG TAB PEG PRN ×3 (02:49→23:41)
[2016-09-12] MEDS: PERCOCET 5MG/325MG TAB PO PRN ×3 (02:50→23:42)
[2016-09-12 04:27] LABS: BASO % 0.3 % (0.0-1.0); EOS # 0.2 K/mm3 (0.0-0.50); EOS % 3.4 % (0.0-3.0); LARGE UNSTAINED CELL # 0.1 K/mm3 (0.0-0.4); LARGE UNSTAINED CELL % 1.6 % (0.0-4.0); LYMPH # 1.2 K/mm3 (1.5-4.5); LYMPH % 15.3 % (24.0-44.0); MEAN CORPUSCULAR HGB CONC 33.9 g/dl (32.0-36.5); MEAN CORPUSCULAR VOLUME 88.5 fl (80.0-96.0); MONO # 0.5 K/mm3 (0.0-0.8); MONO % 6.9 % (0.0-5.0); NEUTROPHILS # 5.1 K/mm3 (1.8-7.7); NEUTROPHILS % 72.5 % (36.0-66.0); PLATELET COUNT, AUTOMATED 173 k/mm3 (150-450); RED CELL DISTRIBUTION WIDTH 13.2 % (11.5-14.5); WHITE BLOOD COUNT 7.1 K/mm3 (4.0-10.0)
[2016-09-12 04:51] LABS: ALBUMIN 2.8 GM/DL (3.2-5.2); ALBUMIN/GLOBULIN RATIO 0.82 (1.00-1.93); ALKALINE PHOSPHATASE 98 U/L (45-117); ALT/SGPT 32 U/L (12-78); ANION GAP 6 MEQ/L (8-16); AST/SGOT 11 U/L (15-37); BILIRUBIN,TOTAL 0.3 MG/DL (0.2-1.0); BLOOD UREA NITROGEN 17 MG/DL (7-18); CALCIUM LEVEL 9.1 MG/DL (8.8-10.2); CARBON DIOXIDE LEVEL 30 MEQ/L (21-32); CHLORIDE LEVEL 103 MEQ/L (98-107); CREATININE FOR GFR 0.76 MG/DL (0.70-1.30); GLOMERULAR FILTRATION RATE > 60.0 (>49); GLUCOSE, FASTING 177 MG/DL (80-110); POTASSIUM SERUM 4.4 MEQ/L (3.5-5.1); SODIUM LEVEL 139 MEQ/L (136-145); TOTAL PROTEIN 6.2 GM/DL (6.4-8.2)
[2016-09-12] MEDS: SLF 3 ML SYR IV SCH ×3 (05:11→21:36)
[2016-09-12] MEDS: LEVOTHYROXINE 0.075 MG TAB (75 MCG) PO SCH (05:19)
[2016-09-12] MEDS: HumaLOG INSULIN (NovoLOG) PER UNIT SC SCH ×4 (05:21→23:41)
[2016-09-12] MEDS: IPRATROPIUM 0.5MG/ALBUTEROL 2.5MG INH SOL UD 3ML (DUONEB)(J7620) NEB SCH ×2 (07:53→11:37)
[2016-09-12] MEDS: FORMOTEROL FUMARATE 20 MCG/2 ML INHALATION SOLUTION (PERFOROMIST) INH SCH (07:57)
[2016-09-12] MEDS: buPROPion 75 MG TAB PO SCH ×2 (08:14→21:28)
[2016-09-12] MEDS: METOPROLOL TART 12.5 MG PER 1/2 TAB PO SCH ×2 (08:14→21:29)
[2016-09-12] MEDS: ALLOPURINOL 100 MG TAB PO SCH ×2 (08:14→21:28)
[2016-09-12] MEDS: MULTIVITAMIN/MINERALS LIQUID 15ML ORAL SYRINGE GT SCH (08:14)
[2016-09-12] MEDS: MAGNESIUM OXIDE 400 MG TAB (MAG-OX) PO SCH (08:15)
[2016-09-12] MEDS: ALPRAZolam 0.25 MG TAB PO SCH ×3 (08:15→21:29)
[2016-09-12] MEDS: LEVEMIR (INSULIN DETEMIR) 1 UNITS/0.01ML SC SCH (08:15)
[2016-09-12] MEDS: FOLIC ACID 1 MG TAB PO SCH (08:15)
[2016-09-12] MEDS: IPRATROPIUM 0.06% NASAL SPRAY 15 ML (ATROVENT) SCH ×3 (09:00→21:00)
[2016-09-12] MEDS: FLUTICASONE PROP 0.05% NASAL SPRAY 16 GM (FLONASE) SCH ×2 (09:00→21:00)
--- NOTE | 2016-09-12 10:28 | REP ---
PORTABLE CHEST: AP portable view of the chest is performed and compared to prior study 09/11/2016. The small right apical pneumothorax has decreased in size. Bibasilar parenchymal opacities are unchanged. Cardiomediastinal silhouette is unchanged. There is a tracheostomy tube again noted which appears to be in good position. IMPRESSION: Mild improvement of small right apical pneumothorax. Signed by Sean Damico MD 09/12/2016 07:53 P
[2016-09-12] MEDS ORDERED: ALBUTEROL SULFATE 2.5 MG/0.5 ML INH NEB SOLN NEB PRN ×2 (12:30)
[2016-09-12] MEDS: ALBUTEROL SULFATE 2.5 MG/0.5 ML INH NEB SOLN NEB SCH ×2 (16:05→19:23)
[2016-09-13] VITALS (8 sets, daily range): BP systolic 121–158; BP diastolic 58–91; O2SAT 93–94
[2016-09-13] MEDS: LORazepam 1 MG TAB PEG PRN ×2 (03:56→13:35)
[2016-09-13] MEDS: PERCOCET 5MG/325MG TAB PO PRN ×4 (03:57→20:49)
[2016-09-13] MEDS: HumaLOG INSULIN (NovoLOG) PER UNIT SC SCH ×3 (05:53→17:41)
[2016-09-13] MEDS: LEVOTHYROXINE 0.075 MG TAB (75 MCG) PO SCH (05:53)
[2016-09-13] MEDS: SLF 3 ML SYR IV SCH ×3 (05:53→20:49)
[2016-09-13] MEDS: ALBUTEROL SULFATE 2.5 MG/0.5 ML INH NEB SOLN NEB SCH ×4 (07:15→20:32)
[2016-09-13] MEDS: FLUTICASONE PROP 0.05% NASAL SPRAY 16 GM (FLONASE) SCH ×2 (08:16→20:49)
[2016-09-13] MEDS: IPRATROPIUM 0.06% NASAL SPRAY 15 ML (ATROVENT) SCH ×3 (08:16→16:00)
[2016-09-13] MEDS: ALPRAZolam 0.25 MG TAB PO SCH ×3 (08:20→20:48)
[2016-09-13] MEDS: LEVEMIR (INSULIN DETEMIR) 1 UNITS/0.01ML SC SCH (08:20)
[2016-09-13] MEDS: FOLIC ACID 1 MG TAB PO SCH (08:21)
[2016-09-13] MEDS: ALLOPURINOL 100 MG TAB PO SCH ×2 (08:21→20:48)
[2016-09-13] MEDS: MAGNESIUM OXIDE 400 MG TAB (MAG-OX) PO SCH (08:21)
[2016-09-13] MEDS: BACLOFEN 10 MG TAB PO SCH (08:21)
[2016-09-13] MEDS: buPROPion 75 MG TAB PO SCH ×2 (08:27→20:48)
[2016-09-13] MEDS: MULTIVITAMIN/MINERALS LIQUID 15ML ORAL SYRINGE GT SCH (08:27)
[2016-09-13] MEDS: METOPROLOL TART 12.5 MG PER 1/2 TAB PO SCH ×2 (08:27→20:47)
--- NOTE | 2016-09-13 19:45 | IPN ---
DATE: 09/13/2016 SUBJECTIVE: The patient was seen and examined. His caregiver was at bedside and present. He appears comfortable. No overnight events reported per nursing. Vitals are within normal limits. The patient did not have any fevers, currently on a ventilator. Oxygen saturation 95-96%. OBJECTIVE: Pupils equal, round, reactive to light. Neck: Status post tracheostomy, on mechanical ventilator. Lungs: Clear to auscultation bilaterally. Abdomen: Soft. Percutaneous endoscopic gastrostomy (PEG) tube in place. Extremities: No clubbing or cyanosis at this time. Vital signs: Temperature 97.9, pulse 99, respiratory rate 24, blood pressure is 158/71, pulse oximetry 95% on mechanical ventilator system. LABORATORY FINDINGS: WBC 7.1, hemoglobin 12.3, hematocrit 36.4, platelet count 173. Sodium 139, potassium 4.4, chloride 103, BUN 17, creatinine 0.76, magnesium was last checked on 09/09/2016 was 1.7. Chest x-ray was done on 09/12/2016, which showed mild improvement of small right apical pneumothorax. ASSESSMENT AND PLAN: 1. Patient has a history of progressing ALS. Prior to admission, he was on bilevel positive airway pressure (BiPAP) 24 hours, presented with acute on chronic hypoxic hypercapnic respiratory failure. Dr. Porter had seen the patient in consultation and placed a tracheostomy on 09/02/2016. On 09/10/2016, the patient was taken back again for revision of his trach. He is currently on mechanical ventilator, which he likely will need permanently. At this time, caregivers are under the impression that the patient will be going home after teaching was done for the family. 2. Acute on chronic respiratory failure. Pulmonology team is still following the patient. Will likely require a mechanical ventilator permanently. At this time, the patient is a FULL CODE. On admission, Dr. Khan and went into details regarding his neurological disease and its progression. He follows up with a supply chain manager and neurologist in [place] at the [place]. 3. Hypernatremia, initially on admission which has resolved. 4. Nutrition. The patient currently has tube feeds. 5. Chronic indwelling Carter with reported urinary tract infections (UTIs). 6. Hypothyroidism. 7. History of diabetes. Patient is currently on Levemir 5 units subcutaneously daily and insulin sliding scale. His point of care glucose is running anywhere from 165 to 216. 8. History of gout. Continue allopurinol 100 mg by mouth twice a day.
[2016-09-14] VITALS (7 sets, daily range): BP systolic 118–159; BP diastolic 65–97
[2016-09-14] MEDS: HumaLOG INSULIN (NovoLOG) PER UNIT SC SCH ×4 (00:11→18:40)
[2016-09-14] MEDS: PERCOCET 5MG/325MG TAB PO PRN ×4 (02:46→22:18)
[2016-09-14] MEDS: LORazepam 1 MG TAB PEG PRN ×2 (02:46→13:32)
[2016-09-14] MEDS: LEVOTHYROXINE 0.075 MG TAB (75 MCG) PO SCH (06:34)
[2016-09-14] MEDS: SLF 3 ML SYR IV SCH ×3 (06:35→22:19)
[2016-09-14] MEDS: ALBUTEROL SULFATE 2.5 MG/0.5 ML INH NEB SOLN NEB SCH ×4 (07:23→19:41)
[2016-09-14 08:31] LABS: BASO % 0.4 % (0.0-1.0); EOS # 0.2 K/mm3 (0.0-0.50); EOS % 2.5 % (0.0-3.0); LARGE UNSTAINED CELL # 0.1 K/mm3 (0.0-0.4); LARGE UNSTAINED CELL % 1.5 % (0.0-4.0); LYMPH # 1.9 K/mm3 (1.5-4.5); LYMPH % 18.5 % (24.0-44.0); MEAN CORPUSCULAR HGB CONC 33.8 g/dl (32.0-36.5); MEAN CORPUSCULAR VOLUME 88.8 fl (80.0-96.0); MONO # 0.7 K/mm3 (0.0-0.8); MONO % 7.8 % (0.0-5.0); NEUTROPHILS # 6.5 K/mm3 (1.8-7.7); NEUTROPHILS % 69.3 % (36.0-66.0); PLATELET COUNT, AUTOMATED 188 k/mm3 (150-450); RED CELL DISTRIBUTION WIDTH 13.4 % (11.5-14.5); WHITE BLOOD COUNT 9.3 K/mm3 (4.0-10.0)
[2016-09-14 09:00] LABS: ANION GAP 6 MEQ/L (8-16); BLOOD UREA NITROGEN 20 MG/DL (7-18); CALCIUM LEVEL 9.2 MG/DL (8.8-10.2); CARBON DIOXIDE LEVEL 31 MEQ/L (21-32); CHLORIDE LEVEL 101 MEQ/L (98-107); CREATININE FOR GFR 0.73 MG/DL (0.70-1.30); GLOMERULAR FILTRATION RATE > 60.0 (>49); GLUCOSE, FASTING 165 MG/DL (80-110); MAGNESIUM LEVEL 1.8 MG/DL (1.8-2.4); POTASSIUM SERUM 4.4 MEQ/L (3.5-5.1); SODIUM LEVEL 138 MEQ/L (136-145)
[2016-09-14] MEDS: METOPROLOL TART 12.5 MG PER 1/2 TAB PO SCH ×2 (09:29→22:17)
[2016-09-14] MEDS: FOLIC ACID 1 MG TAB PO SCH (09:29)
[2016-09-14] MEDS: ALPRAZolam 0.25 MG TAB PO SCH ×3 (09:31→22:18)
[2016-09-14] MEDS: ALLOPURINOL 100 MG TAB PO SCH ×2 (09:31→22:18)
[2016-09-14] MEDS: buPROPion 75 MG TAB PO SCH ×2 (09:31→22:18)
[2016-09-14] MEDS: MAGNESIUM OXIDE 400 MG TAB (MAG-OX) PO SCH (09:32)
[2016-09-14] MEDS: MULTIVITAMIN/MINERALS LIQUID 15ML ORAL SYRINGE GT SCH (09:32)
[2016-09-14] MEDS: FLUTICASONE PROP 0.05% NASAL SPRAY 16 GM (FLONASE) SCH ×2 (09:32→22:18)
[2016-09-14] MEDS: LEVEMIR (INSULIN DETEMIR) 1 UNITS/0.01ML SC SCH (09:32)
--- NOTE | 2016-09-14 15:16 | IPNPDOC ---
Text Note Date of Service The patient was seen on 09/14/16. NOTE Subjective: Pt states he denies any discomfort. No CP/palpitations. Objective: Vitals: (see below) General: No acute distress, laying comfortably in bed. HEENT: Moist mucous membranes. Neck: No JVD or lymphadenopathy. Trach in place, pt on ventilator. Cardiac: Systolic murmur. regular rate. Pulm: Fine crackles at the bases b/l. No wheezing or rhonchi Abd: NT/ND + BS. PEG Ext: No edema or cyanosis Labs (see below) Images: Assessment/Plan 1. Acute on chronic respiratory failure requiring mechanical ventilation. Status post trach. Secondary to progression of ALS as well as progression of underlying lung disease. Will require chronic ventilator per pulmonary. Family is being trained on handling the ventilator as they would like the patient to go home. Chest x-ray on 09/12/16 with questionable apical pneumothorax. Have spoken Dr. Walker who believes that this is not a pneumothorax, but rather fascial tissue after the trach was dislodged earlier in the admission, and we' ll continue to observe. Previously on BiPAP. F also spoken to Dr. Porter we will change the trach in 1 month palpation. Patient is full code. 2. Protein calorie malnutrition- on tube feeding 3. Chronic indwelling Carter with history of UTIs 4. Hypothyroidism 5. Diabetes mellitus on Levemir and sliding scale insulin 6. Gout on allopurinol DVT prophy: Lovenox VS,Fishbone, I+O VS, Fishbone, I+O Laboratory Tests 09/14/16 08:15 Red Blood Count 4.04 L, Mean Corpuscular Volume 88.8, Mean Corpuscular Hemoglobin 30.0, Mean Corpuscular Hemoglobin Concent 33.8, Red Cell Distribution Width 13.4, Neutrophils (%) (Auto) 69.3 H, Lymphocytes (%) (Auto) 18.5 L, Monocytes (%) (Auto) 7.8 H, Eosinophils (%) (Auto) 2.5, Basophils (%) ( Auto) 0.4, Neutrophils # (Auto) 6.5, Lymphocytes # (Auto) 1.9, Monocytes # (Auto ) 0.7, Eosinophils # (Auto) 0.2, Basophils # (Auto) 0.0, Calcium Level 9.2 Vital Signs Date Time Temp Pulse Resp B/P (MAP) Pulse Ox O2 Delivery O2 Flow Rate FiO2 09/14/16 14:01 17 09/14/16 12:00 96.0 84 140/80 (100) 98 Ventilator 09/14/16 08:42 28 09/13/16 08:00 2.0 I&O- Last 24 Hours up to 6 AM 09/14/16 06:00 Intake Total 1990 ml Output Total 2200 ml Balance -210 ml JAVIER BRIDGES MD September 14, 2016 15:16
--- NOTE | 2016-09-14 15:49 | REP ---
Portable chest x-ray: Single view. History: Congestion. On ventilator. Comparison study: September 12, 2016. Findings: Tracheostomy tube remains in good position. EKG electrodes are seen. Median sternotomy wires are noted. There is hazy opacity in the bases, left more so than right. This may reflect pleural fluid. No new infiltrate is seen. Pulmonary vasculature is not increased. Impression: Suggestion of bilateral pleural effusions, left more so than right. Tracheostomy tube in good position. No new infiltrate. Signed by Lionel Morel MD 09/14/2016 04:06 P
[2016-09-14] MEDS: ENOXAPARIN 40 MG/0.4 ML SYRINGE (J1650) SC SCH (16:13)
[2016-09-14] MEDS: BISACODYL 10 MG SUPP PR PRN (17:45)
[2016-09-14] MEDS: IPRATROPIUM 0.06% NASAL SPRAY 15 ML (ATROVENT) SCH ×2 (18:50→18:51)
[2016-09-15] MEDS: HumaLOG INSULIN (NovoLOG) PER UNIT SC SCH ×5 (00:30→23:56)
[2016-09-15 04:20] VITALS: BP 134/75
[2016-09-15 05:10] LABS: MEAN CORPUSCULAR HEMOGLOBIN 30.6 pg (27.0-33.0); MEAN CORPUSCULAR VOLUME 92.8 fl (80.0-96.0); RED CELL DISTRIBUTION WIDTH 13.3 % (11.5-14.5); WHITE BLOOD COUNT 9.6 K/mm3 (4.0-10.0)
[2016-09-15] MEDS: SLF 3 ML SYR IV SCH ×3 (05:15→22:20)
[2016-09-15] MEDS: LORazepam 1 MG TAB PEG PRN ×3 (05:15→23:56)
[2016-09-15] MEDS: LEVOTHYROXINE 0.075 MG TAB (75 MCG) PO SCH (05:15)
[2016-09-15 05:28] LABS: ANION GAP 10 MEQ/L (8-16); BLOOD UREA NITROGEN 20 MG/DL (7-18); CALCIUM LEVEL 9.5 MG/DL (8.8-10.2); CARBON DIOXIDE LEVEL 26 MEQ/L (21-32); CHLORIDE LEVEL 100 MEQ/L (98-107); CREATININE FOR GFR 0.66 MG/DL (0.70-1.30); GLOMERULAR FILTRATION RATE > 60.0 (>49); GLUCOSE, FASTING 168 MG/DL (80-110); MAGNESIUM LEVEL 1.8 MG/DL (1.8-2.4); POTASSIUM SERUM 4.4 MEQ/L (3.5-5.1); SODIUM LEVEL 136 MEQ/L (136-145)
[2016-09-15 07:00] VITALS: BP 101/69
[2016-09-15] MEDS: ALBUTEROL SULFATE 2.5 MG/0.5 ML INH NEB SOLN NEB SCH ×4 (08:43→19:47)
[2016-09-15] MEDS: MAGNESIUM OXIDE 400 MG TAB (MAG-OX) PO SCH (09:32)
[2016-09-15] MEDS: ENOXAPARIN 40 MG/0.4 ML SYRINGE (J1650) SC SCH (09:32)
[2016-09-15] MEDS: FOLIC ACID 1 MG TAB PO SCH (09:32)
[2016-09-15] MEDS: BACLOFEN 10 MG TAB PO SCH (09:33)
[2016-09-15] MEDS: ALLOPURINOL 100 MG TAB PO SCH ×2 (09:33→22:19)
[2016-09-15] MEDS: METOPROLOL TART 12.5 MG PER 1/2 TAB PO SCH ×2 (09:33→22:20)
[2016-09-15] MEDS: ALPRAZolam 0.25 MG TAB PO SCH ×3 (09:33→22:20)
[2016-09-15] MEDS: FLUTICASONE PROP 0.05% NASAL SPRAY 16 GM (FLONASE) SCH ×2 (09:34→22:29)
[2016-09-15] MEDS: LEVEMIR (INSULIN DETEMIR) 1 UNITS/0.01ML SC SCH (09:34)
[2016-09-15] MEDS: buPROPion 75 MG TAB PO SCH ×2 (09:34→22:19)
[2016-09-15] MEDS: MULTIVITAMIN/MINERALS LIQUID 15ML ORAL SYRINGE GT SCH (09:41)
[2016-09-15] MEDS: ACETAMINOPHEN 325 MG/10.15 ML UDC GT PRN (11:03)
[2016-09-15 12:00] VITALS: BP 132/67
--- NOTE | 2016-09-15 14:16 | IPNPDOC ---
Text Note Date of Service The patient was seen on 09/15/16. NOTE Subjective: Pt states he denies any discomfort. No CP/palpitations. Objective: Vitals: (see below) General: No acute distress, laying comfortably in bed. HEENT: Moist mucous membranes. Neck: No JVD or lymphadenopathy. Trach in place, pt on ventilator. Cardiac: Systolic murmur. regular rate. Pulm: Fine crackles at the bases b/l. No wheezing or rhonchi Abd: NT/ND + BS. PEG Ext: No edema or cyanosis Labs (see below) Images: Assessment/Plan 1. Acute on chronic respiratory failure requiring mechanical ventilation. Status post trach. Secondary to progression of ALS as well as progression of underlying lung disease. Will require chronic ventilator per pulmonary. Family is being trained on handling the ventilator as they would like the patient to go home. Chest x-ray on 09/12/16 with questionable apical pneumothorax. Have spoken Dr. Walker who believes that this is not a pneumothorax, but rather fascial tissue after the trach was dislodged earlier in the admission, and we' ll continue to observe. Previously on BiPAP. I've also spoken to Dr. Porter, who we will change the trach in 1 month palpation. Patient is full code. 2. Protein calorie malnutrition- on tube feeding 3. Chronic indwelling Caretr with history of UTIs 4. Hypothyroidism 5. Diabetes mellitus on Levemir and sliding scale insulin 6. Gout on allopurinol DVT prophy: Lovenox VS,Fishbone, I+O VS, Fishbone, I+O Laboratory Tests 09/15/16 04:52 Red Blood Count 4.23 L, Mean Corpuscular Volume 92.8, Mean Corpuscular Hemoglobin 30.6, Mean Corpuscular Hemoglobin Concent 33.0, Red Cell Distribution Width 13.3, Calcium Level 9.5 Vital Signs Date Time Temp Pulse Resp B/P (MAP) Pulse Ox O2 Delivery O2 Flow Rate FiO2 09/15/16 09:33 109 171/87 09/15/16 08:00 Ventilator 2.0 28 09/15/16 07:00 99.2 18 94 I&O- Last 24 Hours up to 6 AM 09/15/16 06:00 Intake Total 1650 ml Output Total 1200 ml Balance 450 ml JAVIER BRIDGES MD September 15, 2016 14:16
[2016-09-15 16:41] VITALS: BP 150/69
[2016-09-15 19:57] VITALS: BP 145/70
[2016-09-15] MEDS: IPRATROPIUM 0.06% NASAL SPRAY 15 ML (ATROVENT) SCH ×2 (22:20→22:30)
[2016-09-15 23:46] VITALS: BP 138/80
[2016-09-16] MEDS: LORazepam 1 MG TAB PEG PRN (04:39)
[2016-09-16 04:45] VITALS: BP 146/85
[2016-09-16 05:48] LABS: MEAN CORPUSCULAR HEMOGLOBIN 30.2 pg (27.0-33.0); MEAN CORPUSCULAR VOLUME 88.8 fl (80.0-96.0); RED CELL DISTRIBUTION WIDTH 13.3 % (11.5-14.5); WHITE BLOOD COUNT 8.6 K/mm3 (4.0-10.0)
[2016-09-16 05:53] LABS: ANION GAP 5 MEQ/L (8-16); BLOOD UREA NITROGEN 20 MG/DL (7-18); CALCIUM LEVEL 9.3 MG/DL (8.8-10.2); CARBON DIOXIDE LEVEL 30 MEQ/L (21-32); CHLORIDE LEVEL 102 MEQ/L (98-107); CREATININE FOR GFR 0.68 MG/DL (0.70-1.30); GLOMERULAR FILTRATION RATE > 60.0 (>49); GLUCOSE, FASTING 194 MG/DL (80-110); MAGNESIUM LEVEL 1.7 MG/DL (1.8-2.4); POTASSIUM SERUM 4.4 MEQ/L (3.5-5.1); SODIUM LEVEL 137 MEQ/L (136-145)
[2016-09-16] MEDS: SLF 3 ML SYR IV SCH ×3 (06:42→21:26)
[2016-09-16] MEDS: HumaLOG INSULIN (NovoLOG) PER UNIT SC SCH ×3 (06:42→18:19)
[2016-09-16] MEDS: LEVOTHYROXINE 0.075 MG TAB (75 MCG) PO SCH (06:42)
[2016-09-16 08:00] VITALS: BP 162/80
[2016-09-16] MEDS: ALBUTEROL SULFATE 2.5 MG/0.5 ML INH NEB SOLN NEB SCH ×4 (08:07→20:00)
[2016-09-16] MEDS ORDERED: MAG SULF 1GM/100ML (MAG RUN) 1 GM in APPROPRIATE DILUENT 1 EA IV ONE (08:30)
[2016-09-16] MEDS: MULTIVITAMIN/MINERALS LIQUID 15ML ORAL SYRINGE GT SCH (09:30)
[2016-09-16] MEDS: ACETAMINOPHEN 325 MG/10.15 ML UDC GT PRN (09:31)
[2016-09-16] MEDS: LEVEMIR (INSULIN DETEMIR) 1 UNITS/0.01ML SC SCH (09:31)
[2016-09-16] MEDS: METOPROLOL TART 12.5 MG PER 1/2 TAB PO SCH ×2 (09:32→21:25)
[2016-09-16] MEDS: FOLIC ACID 1 MG TAB PO SCH (09:32)
[2016-09-16] MEDS: buPROPion 75 MG TAB PO SCH (09:32)
[2016-09-16] MEDS: ALLOPURINOL 100 MG TAB PO SCH ×2 (09:32→21:25)
[2016-09-16] MEDS: ALPRAZolam 0.25 MG TAB PO SCH ×3 (09:32→21:25)
[2016-09-16] MEDS: MAGNESIUM OXIDE 400 MG TAB (MAG-OX) PO SCH (09:33)
[2016-09-16] MEDS: ENOXAPARIN 40 MG/0.4 ML SYRINGE (J1650) SC SCH (09:34)
[2016-09-16] MEDS: FLUTICASONE PROP 0.05% NASAL SPRAY 16 GM (FLONASE) SCH ×2 (09:34→21:25)
[2016-09-16] MEDS: IPRATROPIUM 0.06% NASAL SPRAY 15 ML (ATROVENT) SCH ×2 (09:35→21:00)
[2016-09-16 12:00] VITALS: BP 143/69
--- NOTE | 2016-09-16 14:05 | IPNPDOC ---
Text Note Date of Service The patient was seen on 09/16/16. NOTE Subjective: Pt states he denies any discomfort. No CP/palpitations. Objective: Vitals: (see below) General: No acute distress, laying comfortably in bed. HEENT: Moist mucous membranes. Neck: No JVD or lymphadenopathy. Trach in place, pt on ventilator. Cardiac: Systolic murmur. regular rate. Pulm: Fine crackles at the bases b/l. No wheezing or rhonchi Abd: NT/ND + BS. PEG Ext: No edema or cyanosis Labs (see below) Images: Assessment/Plan 1. Acute on chronic respiratory failure requiring mechanical ventilation. Status post trach. Secondary to progression of ALS as well as progression of underlying lung disease. Will require chronic ventilator per pulmonary. Family is being trained on handling the ventilator as they would like the patient to go home. Chest x-ray on 09/12/16 with questionable apical pneumothorax. Have spoken Dr. Walker who believes that this is not a pneumothorax, but rather fascial tissue after the trach was dislodged earlier in the admission, and we' ll continue to observe. Previously on BiPAP. I've also spoken to Dr. Porter, who we will change the trach in 1 month palpation. Patient is full code. 2. Protein calorie malnutrition- on tube feeding 3. Chronic indwelling Carter with history of UTIs 4. Hypothyroidism 5. Diabetes mellitus on Levemir and sliding scale insulin 6. Gout on allopurinol 7. Anxiety - on wellbutrin (dose decreased as family states he is only on 75mg daily at home. Also on benzos, which have been decreased today. DVT prophy: [employer] [facility] is teaching family on vent management. Plan to d/c when education is complete. likely in the next 24-48hrs. VS,Fishbone, I+O VS, Fishbone, I+O Laboratory Tests 09/16/16 05:21 Red Blood Count 4.10 L, Mean Corpuscular Volume 88.8, Mean Corpuscular Hemoglobin 30.2, Mean Corpuscular Hemoglobin Concent 34.0, Red Cell Distribution Width 13.3, Calcium Level 9.3 Vital Signs Date Time Temp Pulse Resp B/P (MAP) Pulse Ox O2 Delivery O2 Flow Rate FiO2 09/16/16 12:00 98.5 90 20 143/69 (93) 91 Ventilator 2.0 09/15/16 20:00 28 I&O- Last 24 Hours up to 6 AM 09/16/16 06:00 Intake Total 1469 ml Output Total 1900 ml Balance -431 ml JAVIER BRIDGES MD September 16, 2016 14:05
[2016-09-16] MEDS: FLEET ENEMA PR PRN (14:12)
[2016-09-16 16:00] VITALS: BP 166/85
[2016-09-16] MEDS: BISACODYL 10 MG SUPP PR PRN (19:47)
[2016-09-16 20:01] VITALS: BP 161/89
[2016-09-17] VITALS (8 sets, daily range): BP systolic 116–166; BP diastolic 69–91; PULSE 102; O2SAT 93
[2016-09-17] MEDS: FLEET ENEMA PR PRN (01:00)
[2016-09-17] MEDS: HumaLOG INSULIN (NovoLOG) PER UNIT SC SCH ×5 (01:16→23:37)
[2016-09-17] MEDS ORDERED: MOM 30ML SUSPENSION UDC GT ONE (01:30)
[2016-09-17 05:24] LABS: MEAN CORPUSCULAR HEMOGLOBIN 29.7 pg (27.0-33.0); RED CELL DISTRIBUTION WIDTH 13.2 % (11.5-14.5); WHITE BLOOD COUNT 10.2 K/mm3 (4.0-10.0)
[2016-09-17 05:44] LABS: ANION GAP 6 MEQ/L (8-16); BLOOD UREA NITROGEN 19 MG/DL (7-18); CALCIUM LEVEL 9.3 MG/DL (8.8-10.2); CARBON DIOXIDE LEVEL 32 MEQ/L (21-32); CHLORIDE LEVEL 99 MEQ/L (98-107); CREATININE FOR GFR 0.72 MG/DL (0.70-1.30); GLOMERULAR FILTRATION RATE > 60.0 (>49); GLUCOSE, FASTING 218 MG/DL (80-110); POTASSIUM SERUM 4.1 MEQ/L (3.5-5.1); SODIUM LEVEL 137 MEQ/L (136-145)
[2016-09-17] MEDS: LEVOTHYROXINE 0.075 MG TAB (75 MCG) PO SCH (06:30)
[2016-09-17] MEDS: SLF 3 ML SYR IV SCH ×3 (06:31→21:15)
[2016-09-17] MEDS: ALBUTEROL SULFATE 2.5 MG/0.5 ML INH NEB SOLN NEB SCH ×4 (07:41→19:30)
[2016-09-17] MEDS: FLUTICASONE PROP 0.05% NASAL SPRAY 16 GM (FLONASE) SCH ×2 (09:40→21:15)
[2016-09-17] MEDS: LEVEMIR (INSULIN DETEMIR) 1 UNITS/0.01ML SC SCH (09:40)
[2016-09-17] MEDS: ENOXAPARIN 40 MG/0.4 ML SYRINGE (J1650) SC SCH (09:40)
[2016-09-17] MEDS: ALPRAZolam 0.25 MG TAB PO SCH ×3 (09:41→21:13)
[2016-09-17] MEDS: MAGNESIUM OXIDE 400 MG TAB (MAG-OX) PO SCH (09:41)
[2016-09-17] MEDS: BACLOFEN 10 MG TAB PO SCH (09:41)
[2016-09-17] MEDS: buPROPion 75 MG TAB PO SCH (09:41)
[2016-09-17] MEDS: METOPROLOL TART 12.5 MG PER 1/2 TAB PO SCH ×2 (09:41→21:14)
[2016-09-17] MEDS: FOLIC ACID 1 MG TAB PO SCH (09:41)
[2016-09-17] MEDS: MULTIVITAMIN/MINERALS LIQUID 15ML ORAL SYRINGE GT SCH (09:42)
[2016-09-17] MEDS: ALLOPURINOL 100 MG TAB PO SCH ×2 (09:42→21:13)
[2016-09-17] MEDS: IPRATROPIUM 0.06% NASAL SPRAY 15 ML (ATROVENT) SCH ×3 (09:45→21:15)
[2016-09-17] MEDS ORDERED: LORazepam 1 MG TAB PEG PRN (10:15)
[2016-09-17] MEDS: MOM 30ML SUSPENSION UDC PEG SCH ×3 (13:37→21:14)
[2016-09-17] MEDS: MIRALAX *UNIT DOSE* 17GM PACKET PEG SCH (13:46)
--- NOTE | 2016-09-17 13:59 | REP ---
Clinical: Shortness of breath and congestion. Comparison: 09/14/2016. Findings: Mediastinum and cardiac silhouette stable. Evidence for prior sternotomy, CABG, and tracheostomy again noted. The right hemithorax appears well aerated and clear. Left perihilar and basilar atelectasis suggested. No obvious effusion. No pneumothorax. Skeletal structures stable. Impression: Left mid to lower lobe atelectasis. Signed by Josh Saeed MD 09/17/2016 01:51 P
--- NOTE | 2016-09-17 14:26 | IPNPDOC ---
Text Note Date of Service The patient was seen on 09/17/16. NOTE Subjective: Pt states he denies any discomfort. No CP/palpitations. No acute changes overnight. Objective: Vitals: (see below) General: No acute distress, laying comfortably in bed. HEENT: Moist mucous membranes. Neck: No JVD or lymphadenopathy. Trach in place, pt on ventilator. Cardiac: Systolic murmur. regular rate. Pulm: Fine crackles at the bases b/l L>R. No wheezing or rhonchi Abd: NT/ND + BS. PEG Ext: No edema or cyanosis Labs (see below) Images: Assessment/Plan 1. Acute on chronic respiratory failure requiring mechanical ventilation. Status post trach. Secondary to progression of ALS as well as progression of underlying lung disease. Will require chronic ventilator per pulmonary. Family is being trained on handling the ventilator as they would like the patient to go home. Chest x-ray on 09/12/16 with questionable apical pneumothorax. Have spoken Dr. Walker who believes that this is not a pneumothorax, but rather fascial tissue after the trach was dislodged earlier in the admission, and we' ll continue to observe. Previously on BiPAP. I've also spoken to Dr. Porter, who we will change the trach in 1 month palpation. Patient is full code. CXR with left atelectasis. Refused ABG. 2. Protein calorie malnutrition- on tube feeding 3. Chronic indwelling Carter with history of UTIs 4. Hypothyroidism 5. Diabetes mellitus on Levemir and sliding scale insulin 6. Gout on allopurinol 7. Anxiety - on Wellbutrin, xanax [facility] family on vent management. Plan to d/c when education is complete. likely in the next 24-48hrs. VS,Fishbone, I+O VS, Fishbone, I+O Laboratory Tests 09/17/16 04:52 Red Blood Count 4.08 L, Mean Corpuscular Volume 90.0, Mean Corpuscular Hemoglobin 29.7, Mean Corpuscular Hemoglobin Concent 33.0, Red Cell Distribution Width 13.2, Calcium Level 9.3 Vital Signs Date Time Temp Pulse Resp B/P (MAP) Pulse Ox O2 Delivery O2 Flow Rate FiO2 09/17/16 12:00 96.7 94 24 140/70 (93) 96 Ventilator 2.0 40 I&O- Last 24 Hours up to 6 AM 09/17/16 06:00 Intake Total 1880 ml Output Total 1725 ml Balance 155 ml JAVIER BRIDGES MD September 17, 2016 14:26
--- NOTE | 2016-09-17 15:22 | ECGEPIP ---
Stationary ECG Study [facility] Test Date: 2016-09-17 Pat Name: MILA [place] Department: Room: [place] [address] Gender: M Bleach Range Operator: SARAH : 1950 Requested By: JAVIER BRIDGES Order Number: [id number] Reading MD: Ashely Richardson Measurements Intervals [place] Rate: 97 P: 48 AR: 192 QRS: 90 QRSD: 117 T: 48 QT: 349 QTc: 444 Interpretive Statements SINUS RHYTHM BORDERLINE FIRST DEGREE BLOCK MODERATE INTRAVENTRICULAR CONDUCTION DELAY ST & T-WAVE ABNORMALITY SEPTAL NEW PRIOR WITH LEAD SWITCH LIMB Electronically Signed On 09-17-2016 15:22:23 EDT by Ashely Richardson
[2016-09-18] VITALS (7 sets, daily range): BP systolic 106–188; BP diastolic 74–96; PULSE 92–101; O2SAT 94
[2016-09-18] MEDS: MOM 30ML SUSPENSION UDC PEG SCH ×6 (02:00→20:54)
[2016-09-18] MEDS: HumaLOG INSULIN (NovoLOG) PER UNIT SC SCH ×3 (06:00→17:37)
[2016-09-18] MEDS: SLF 3 ML SYR IV SCH ×3 (06:19→20:54)
[2016-09-18] MEDS: LEVOTHYROXINE 0.075 MG TAB (75 MCG) PO SCH (06:19)
[2016-09-18] MEDS: ALBUTEROL SULFATE 2.5 MG/0.5 ML INH NEB SOLN NEB SCH ×4 (07:50→19:48)
[2016-09-18] MEDS: buPROPion 75 MG TAB PO SCH (09:04)
[2016-09-18] MEDS: ALPRAZolam 0.25 MG TAB PO SCH ×3 (09:04→20:52)
[2016-09-18] MEDS: MULTIVITAMIN/MINERALS LIQUID 15ML ORAL SYRINGE GT SCH (09:04)
[2016-09-18] MEDS: FOLIC ACID 1 MG TAB PO SCH (09:04)
[2016-09-18] MEDS: METOPROLOL TART 12.5 MG PER 1/2 TAB PO SCH ×2 (09:05→20:52)
[2016-09-18] MEDS: ENOXAPARIN 40 MG/0.4 ML SYRINGE (J1650) SC SCH (09:06)
[2016-09-18] MEDS: LEVEMIR (INSULIN DETEMIR) 1 UNITS/0.01ML SC SCH (09:06)
[2016-09-18] MEDS: MIRALAX *UNIT DOSE* 17GM PACKET PEG SCH (09:07)
[2016-09-18] MEDS: MAGNESIUM OXIDE 400 MG TAB (MAG-OX) PO SCH (09:07)
[2016-09-18] MEDS: ALLOPURINOL 100 MG TAB PO SCH ×2 (09:07→20:52)
[2016-09-18] MEDS: FLUTICASONE PROP 0.05% NASAL SPRAY 16 GM (FLONASE) SCH ×2 (09:07→20:53)
[2016-09-18] MEDS: IPRATROPIUM 0.06% NASAL SPRAY 15 ML (ATROVENT) SCH ×3 (09:08→20:53)
--- NOTE | 2016-09-18 14:43 | IPNPDOC ---
Text Note Date of Service The patient was seen on 09/18/16. NOTE Subjective: No CP/palpitations/SOB. No acute changes overnight. Objective: Vitals: (see below) General: No acute distress, laying comfortably in bed. HEENT: Moist mucous membranes. Neck: No JVD or lymphadenopathy. Trach in place, pt on ventilator. Cardiac: Systolic murmur. regular rate. Pulm: Fine crackles at the bases b/l L>R. No wheezing or rhonchi Abd: NT/ND + BS. PEG Ext: No edema or cyanosis Labs (see below) Images: Assessment/Plan 1. Acute on chronic respiratory failure requiring mechanical ventilation. Status post trach. Secondary to progression of ALS as well as progression of underlying lung disease. Will require chronic ventilator per pulmonary. Family is being trained on handling the ventilator as they would like the patient to go home. Chest x-ray on 09/12/16 with questionable apical pneumothorax. Have spoken Dr. Walker who believes that this is not a pneumothorax, but rather fascial tissue after the trach was dislodged earlier in the admission, and we' ll continue to observe. Previously on BiPAP. I've also spoken to Dr. Porter, who we will change the trach in 1 month palpation. Patient is full code. CXR with left atelectasis. Refused ABG. 2. Protein calorie malnutrition- on tube feeding 3. Chronic indwelling Carter with history of UTIs 4. Hypothyroidism 5. Diabetes mellitus on Levemir and sliding scale insulin 6. Gout on allopurinol 7. Anxiety - on Wellbutrin, xanax DVT prophy: [facility] is teaching family on vent management. Plan to d/c when education is complete. Also awaiting home care arrangements, which case management is working on. VS,Fishbone, I+O VS, Fishbone, I+O Vital Signs Date Time Temp Pulse Resp B/P (MAP) Pulse Ox O2 Delivery O2 Flow Rate FiO2 09/18/16 09:05 107 156/84 09/18/16 09:04 Ventilator 3.0 09/18/16 08:05 21 95 09/18/16 08:00 98.0 09/17/16 16:00 40 I&O- Last 24 Hours up to 6 AM 09/18/16 05:59 Intake Total 2250 ml Output Total 1100 ml Balance 1150 ml JAVIER BRIDGES MD September 18, 2016 14:43
[2016-09-18] MEDS ORDERED: traZODone 50 MG TAB PO ONE (22:45)
[2016-09-19] VITALS (7 sets, daily range): BP systolic 110–150; BP diastolic 58–71; PULSE 94–97; O2SAT 92
[2016-09-19] MEDS: MOM 30ML SUSPENSION UDC PEG SCH ×6 (00:55→22:00)
[2016-09-19 05:25] LABS: MEAN CORPUSCULAR HEMOGLOBIN 29.8 pg (27.0-33.0); MEAN CORPUSCULAR HGB CONC 32.9 g/dl (32.0-36.5); MEAN CORPUSCULAR VOLUME 90.6 fl (80.0-96.0); RED CELL DISTRIBUTION WIDTH 13.2 % (11.5-14.5); WHITE BLOOD COUNT 12.2 K/mm3 (4.0-10.0)
[2016-09-19 05:49] LABS: ANION GAP 7 MEQ/L (8-16); BLOOD UREA NITROGEN 28 MG/DL (7-18); CALCIUM LEVEL 9.5 MG/DL (8.8-10.2); CARBON DIOXIDE LEVEL 32 MEQ/L (21-32); CHLORIDE LEVEL 97 MEQ/L (98-107); CREATININE FOR GFR 0.85 MG/DL (0.70-1.30); GLOMERULAR FILTRATION RATE > 60.0 (>49); GLUCOSE, FASTING 213 MG/DL (80-110); MAGNESIUM LEVEL 2.5 MG/DL (1.8-2.4); POTASSIUM SERUM 4.1 MEQ/L (3.5-5.1); SODIUM LEVEL 136 MEQ/L (136-145)
[2016-09-19] MEDS: LEVOTHYROXINE 0.075 MG TAB (75 MCG) PO SCH (06:12)
[2016-09-19] MEDS: SLF 3 ML SYR IV SCH ×3 (06:12→22:09)
[2016-09-19] MEDS: HumaLOG INSULIN (NovoLOG) PER UNIT SC SCH ×4 (06:18→18:03)
[2016-09-19] MEDS: ALBUTEROL SULFATE 2.5 MG/0.5 ML INH NEB SOLN NEB SCH ×4 (07:24→20:02)
[2016-09-19] MEDS: MULTIVITAMIN/MINERALS LIQUID 15ML ORAL SYRINGE GT SCH (09:38)
[2016-09-19] MEDS: BACLOFEN 10 MG TAB PO SCH (09:38)
[2016-09-19] MEDS: MIRALAX *UNIT DOSE* 17GM PACKET PEG SCH (09:38)
[2016-09-19] MEDS: METOPROLOL TART 12.5 MG PER 1/2 TAB PO SCH ×2 (09:38→22:08)
[2016-09-19] MEDS: FOLIC ACID 1 MG TAB PO SCH (09:38)
[2016-09-19] MEDS: MAGNESIUM OXIDE 400 MG TAB (MAG-OX) PO SCH (09:39)
[2016-09-19] MEDS: ALPRAZolam 0.25 MG TAB PO SCH ×3 (09:39→22:08)
[2016-09-19] MEDS: buPROPion 75 MG TAB PO SCH (09:39)
[2016-09-19] MEDS: ALLOPURINOL 100 MG TAB PO SCH ×2 (09:39→22:08)
[2016-09-19] MEDS: ENOXAPARIN 40 MG/0.4 ML SYRINGE (J1650) SC SCH (09:40)
[2016-09-19] MEDS: LEVEMIR (INSULIN DETEMIR) 1 UNITS/0.01ML SC SCH (09:40)
[2016-09-19] MEDS: IPRATROPIUM 0.06% NASAL SPRAY 15 ML (ATROVENT) SCH ×3 (09:40→22:08)
[2016-09-19] MEDS: FLUTICASONE PROP 0.05% NASAL SPRAY 16 GM (FLONASE) SCH ×2 (09:40→22:08)
--- NOTE | 2016-09-19 15:40 | IPNPDOC ---
Text Note Date of Service The patient was seen on 09/19/16. NOTE Subjective: No CP/palpitations/SOB. No acute changes overnight. Objective: Vitals: (see below) General: No acute distress, laying comfortably in bed. HEENT: Moist mucous membranes. Neck: No JVD or lymphadenopathy. Trach in place, pt on ventilator. Cardiac: Systolic murmur. regular rate. Pulm: Fine crackles at the bases b/l L>R. No wheezing or rhonchi Abd: NT/ND + BS. PEG Ext: No edema or cyanosis Labs (see below) Images: Assessment/Plan 1. Acute on chronic respiratory failure requiring mechanical ventilation. Status post trach. Secondary to progression of ALS as well as progression of underlying lung disease. Will require chronic ventilator per pulmonary. Family is being trained on handling the ventilator as they would like the patient to go home. Chest x-ray on 09/12/16 with questionable apical pneumothorax. Have spoken Dr. Walker who believes that this is not a pneumothorax, but rather fascial tissue after the trach was dislodged earlier in the admission, and we' ll continue to observe. Previously on BiPAP. I've also spoken to Dr. Porter, who we will change the trach in 1 month palpation. Patient is full code. CXR with left atelectasis. Refused ABG. 2. Protein calorie malnutrition- on tube feeding 3. Chronic indwelling Carter with history of UTIs 4. Hypothyroidism 5. Diabetes mellitus on Levemir and sliding scale insulin 6. Gout on allopurinol 7. Anxiety - on Wellbutrin, xanax [facility]VT [facility]phy: [facility] family on vent management. Plan to d/c when education is complete. Also awaiting home care arrangements, which case management is working on. VS,Fishbone, I+O VS, Fishbone, I+O Laboratory Tests 09/19/16 05:08 Red Blood Count 4.10 L, Mean Corpuscular Volume 90.6, Mean Corpuscular Hemoglobin 29.8, Mean Corpuscular Hemoglobin Concent 32.9, Red Cell Distribution Width 13.2, Calcium Level 9.5 Vital Signs Date Time Temp Pulse Resp B/P (MAP) Pulse Ox O2 Delivery O2 Flow Rate FiO2 09/19/16 15:29 18 94 09/19/16 09:58 Ventilator 3.0 09/19/16 09:38 97 150/71 09/19/16 08:00 98.3 09/17/16 16:00 40 I&O- Last 24 Hours up to 6 AM 09/19/16 06:00 Intake Total 1220 ml Output Total 1170 ml Balance 50 ml JAVIER BRIDGES MD September 19, 2016 15:40
[2016-09-20] VITALS (12 sets, daily range): BP systolic 110–141; BP diastolic 60–79; O2SAT 94–95
[2016-09-20] MEDS: HumaLOG INSULIN (NovoLOG) PER UNIT SC SCH ×5 (00:22→23:48)
[2016-09-20] MEDS: MOM 30ML SUSPENSION UDC PEG SCH ×6 (01:50→21:11)
[2016-09-20] MEDS ORDERED: traZODone 50 MG TAB PO ONE ×2 (03:00→22:15)
[2016-09-20] MEDS: LEVOTHYROXINE 0.075 MG TAB (75 MCG) PO SCH (06:23)
[2016-09-20] MEDS: SLF 3 ML SYR IV SCH ×3 (06:23→20:54)
[2016-09-20] MEDS: ALBUTEROL SULFATE 2.5 MG/0.5 ML INH NEB SOLN NEB SCH ×4 (07:42→20:17)
[2016-09-20] MEDS: MIRALAX *UNIT DOSE* 17GM PACKET PEG SCH (09:00)
[2016-09-20] MEDS: IPRATROPIUM 0.06% NASAL SPRAY 15 ML (ATROVENT) SCH ×3 (09:00→21:00)
[2016-09-20] MEDS: FLUTICASONE PROP 0.05% NASAL SPRAY 16 GM (FLONASE) SCH ×2 (10:12→21:00)
[2016-09-20] MEDS: METOPROLOL TART 12.5 MG PER 1/2 TAB PO SCH ×2 (10:14→20:53)
[2016-09-20] MEDS: LEVEMIR (INSULIN DETEMIR) 1 UNITS/0.01ML SC SCH (10:14)
[2016-09-20] MEDS: MAGNESIUM OXIDE 400 MG TAB (MAG-OX) PO SCH (10:15)
[2016-09-20] MEDS: FOLIC ACID 1 MG TAB PO SCH (10:15)
[2016-09-20] MEDS: ALPRAZolam 0.25 MG TAB PO SCH ×3 (10:15→20:53)
[2016-09-20] MEDS: ALLOPURINOL 100 MG TAB PO SCH ×2 (10:15→20:53)
[2016-09-20] MEDS: buPROPion 75 MG TAB PO SCH (10:15)
[2016-09-20] MEDS: ENOXAPARIN 40 MG/0.4 ML SYRINGE (J1650) SC SCH (10:17)
[2016-09-20] MEDS: MULTIVITAMIN/MINERALS LIQUID 15ML ORAL SYRINGE GT SCH (10:19)
--- NOTE | 2016-09-20 15:54 | IPNPDOC ---
Text Note Date of Service The patient was seen on 09/20/16. NOTE Subjective: No CP/palpitations/SOB. No acute changes overnight. Objective: Vitals: (see below) General: No acute distress, laying comfortably in bed. HEENT: Moist mucous membranes. Neck: No JVD or lymphadenopathy. Trach in place, pt on ventilator. Cardiac: Systolic murmur. regular rate. Pulm: Fine crackles at the bases b/l L>R improved from yesterday. No wheezing or rhonchi Abd: NT/ND + BS. PEG Ext: No edema or cyanosis Labs (see below) Images: Assessment/Plan 1. Acute on chronic respiratory failure requiring mechanical ventilation. Status post trach. Secondary to progression of ALS as well as progression of underlying lung disease. Will require chronic ventilator per pulmonary. Family is being trained on handling the ventilator as they would like the patient to go home. Chest x-ray on 09/12/16 with questionable apical pneumothorax. Have spoken Dr. Walker who believes that this is not a pneumothorax, but rather fascial tissue after the trach was dislodged earlier in the admission, and we' ll continue to observe. Previously on BiPAP. I've also spoken to Dr. Porter, who we will change the trach in 1 month palpation. Patient is full code. CXR with left atelectasis. Refused ABG. 2. Protein calorie malnutrition- on tube feeding 3. Chronic indwelling Carter with history of UTIs 4. Hypothyroidism 5. Diabetes mellitus on Levemir and sliding scale insulin 6. Gout on allopurinol 7. Anxiety - on Wellbutrin, xanax DVT prophy: [facility] is teaching family on vent management. Plan to d/c when education is complete. Also awaiting home care arrangements, which case management is working on. VS,Fishbone, I+O VS, Fishbone, I+O Vital Signs Date Time Temp Pulse Resp B/P (MAP) Pulse Ox O2 Delivery O2 Flow Rate FiO2 09/20/16 12:00 98.5 83 20 130/76 (94) 94 Ventilator 09/20/16 07:42 3.0 09/17/16 16:00 40 I&O- Last 24 Hours up to 6 AM 09/20/16 06:00 Intake Total 0 ml Output Total 1025 ml Balance -1025 ml ABED,JAVIER MD September 20, 2016 15:54
[2016-09-21] VITALS (7 sets, daily range): BP systolic 110–163; BP diastolic 56–79; O2SAT 98
[2016-09-21] MEDS: MOM 30ML SUSPENSION UDC PEG SCH ×7 (02:00→20:41)
[2016-09-21] MEDS: HumaLOG INSULIN (NovoLOG) PER UNIT SC SCH ×3 (05:44→17:07)
[2016-09-21] MEDS: LEVOTHYROXINE 0.075 MG TAB (75 MCG) PO SCH (05:44)
[2016-09-21] MEDS: SLF 3 ML SYR IV SCH ×3 (05:45→20:41)
[2016-09-21] MEDS: ALBUTEROL SULFATE 2.5 MG/0.5 ML INH NEB SOLN NEB SCH ×4 (07:36→20:36)
[2016-09-21 07:42] LABS: MEAN CORPUSCULAR HEMOGLOBIN 29.7 pg (27.0-33.0); MEAN CORPUSCULAR HGB CONC 33.5 g/dl (32.0-36.5); MEAN CORPUSCULAR VOLUME 88.4 fl (80.0-96.0); RED CELL DISTRIBUTION WIDTH 13.1 % (11.5-14.5); WHITE BLOOD COUNT 9.4 K/mm3 (4.0-10.0)
[2016-09-21 08:13] LABS: ANION GAP 8 MEQ/L (8-16); BLOOD UREA NITROGEN 24 MG/DL (7-18); CALCIUM LEVEL 9.1 MG/DL (8.8-10.2); CARBON DIOXIDE LEVEL 31 MEQ/L (21-32); CHLORIDE LEVEL 99 MEQ/L (98-107); CREATININE FOR GFR 0.75 MG/DL (0.70-1.30); GLOMERULAR FILTRATION RATE > 60.0 (>49); GLUCOSE, FASTING 219 MG/DL (80-110); MAGNESIUM LEVEL 1.8 MG/DL (1.8-2.4); POTASSIUM SERUM 4.5 MEQ/L (3.5-5.1); SODIUM LEVEL 138 MEQ/L (136-145)
[2016-09-21] MEDS: MIRALAX *UNIT DOSE* 17GM PACKET PEG SCH (09:00)
[2016-09-21] MEDS: MULTIVITAMIN/MINERALS LIQUID 15ML ORAL SYRINGE GT SCH (09:15)
[2016-09-21] MEDS: LEVEMIR (INSULIN DETEMIR) 1 UNITS/0.01ML SC SCH (09:16)
[2016-09-21] MEDS: ENOXAPARIN 40 MG/0.4 ML SYRINGE (J1650) SC SCH (09:16)
[2016-09-21] MEDS: FOLIC ACID 1 MG TAB PO SCH (09:16)
[2016-09-21] MEDS: MAGNESIUM OXIDE 400 MG TAB (MAG-OX) PO SCH (09:17)
[2016-09-21] MEDS: ALPRAZolam 0.25 MG TAB PO SCH ×3 (09:17→20:32)
[2016-09-21] MEDS: buPROPion 75 MG TAB PO SCH (09:17)
[2016-09-21] MEDS: METOPROLOL TART 12.5 MG PER 1/2 TAB PO SCH ×2 (09:17→20:31)
[2016-09-21] MEDS: ALLOPURINOL 100 MG TAB PO SCH ×2 (09:17→20:31)
[2016-09-21] MEDS: BACLOFEN 10 MG TAB PO SCH (09:18)
[2016-09-21] MEDS: FLUTICASONE PROP 0.05% NASAL SPRAY 16 GM (FLONASE) SCH ×2 (09:19→20:41)
[2016-09-21] MEDS: IPRATROPIUM 0.06% NASAL SPRAY 15 ML (ATROVENT) SCH ×3 (12:08→20:40)
[2016-09-22] VITALS (8 sets, daily range): BP systolic 120–149; BP diastolic 58–71; O2SAT 98
[2016-09-22] MEDS: HumaLOG INSULIN (NovoLOG) PER UNIT SC SCH ×4 (00:15→18:07)
[2016-09-22] MEDS: MOM 30ML SUSPENSION UDC PEG SCH ×6 (01:23→20:14)
[2016-09-22] MEDS: LEVOTHYROXINE 0.075 MG TAB (75 MCG) PO SCH (05:54)
[2016-09-22] MEDS: SLF 3 ML SYR IV SCH ×3 (05:55→20:19)
[2016-09-22] MEDS: ALBUTEROL SULFATE 2.5 MG/0.5 ML INH NEB SOLN NEB SCH ×4 (07:55→20:01)
[2016-09-22] MEDS: MIRALAX *UNIT DOSE* 17GM PACKET PEG SCH (09:00)
[2016-09-22] MEDS: ALPRAZolam 0.25 MG TAB PO SCH ×3 (09:48→20:18)
[2016-09-22] MEDS: METOPROLOL TART 12.5 MG PER 1/2 TAB PO SCH ×2 (09:49→20:18)
[2016-09-22] MEDS: MAGNESIUM OXIDE 400 MG TAB (MAG-OX) PO SCH (09:49)
[2016-09-22] MEDS: buPROPion 75 MG TAB PO SCH (09:49)
[2016-09-22] MEDS: LEVEMIR (INSULIN DETEMIR) 1 UNITS/0.01ML SC SCH (09:50)
[2016-09-22] MEDS: FOLIC ACID 1 MG TAB PO SCH (09:50)
[2016-09-22] MEDS: ALLOPURINOL 100 MG TAB PO SCH ×2 (09:50→20:18)
[2016-09-22] MEDS: MULTIVITAMIN/MINERALS LIQUID 15ML ORAL SYRINGE GT SCH (09:50)
[2016-09-22] MEDS: IPRATROPIUM 0.06% NASAL SPRAY 15 ML (ATROVENT) SCH ×2 (09:51→16:00)
[2016-09-22] MEDS: ENOXAPARIN 40 MG/0.4 ML SYRINGE (J1650) SC SCH (09:51)
[2016-09-22] MEDS: FLUTICASONE PROP 0.05% NASAL SPRAY 16 GM (FLONASE) SCH ×2 (09:51→20:18)
[2016-09-22] MEDS ORDERED: METO12TA PO (15:29)
[2016-09-22] MEDS ORDERED: ALPR0.25 PO (15:29)
[2016-09-22] MEDS ORDERED: INSULANT SC (15:29)
[2016-09-22] MEDS ORDERED: IPRA6SP (15:30)
--- NOTE | 2016-09-22 16:59 | IPN ---
DATE: 09/22/2016 SUBJECTIVE: Patient is seen and examined in the room today. I had a chance to talk to patient's . She stated she and other family members and the home attendant have received training for the ventilator and the tube feeding. I discussed with her that we are still in the process of searching for a home health nurse who has the capacity to manage the ventilator and tube feedings. The expressed interest for a bolus feed instead of continuous feed and I will order dietary consult to decide on a regimen for the patient today. OBJECTIVE: VITAL SIGNS: Temperature 97.4, pulse 87, respirations 16, blood pressure 136/70, pulse oximetry 96% on the ventilator. GENERAL: No sign of acute distress. Patient is alert and awake, able to follow commands. HEENT: Trach in place and examined, no active discharge, no bleeding from the trach site. CARDIOVASCULAR: Positive murmurs, positive S1, S2, regular rate. LUNGS: Fine crackles bilaterally, no wheezes. ABDOMEN: Percutaneous endoscopic gastrostomy (PEG) tube in place. Bowel sounds present. Nontender, nondistended. EXTREMITIES: No edema. No sign of cyanosis. ASSESSMENT AND PLAN: 1. Acute on chronic respiratory failure status post tracheostomy. Patient is now on portable mechanical ventilators. Patient's respiratory failure is due to progression of his amyotrophic lateral sclerosis (ALS). Currently we are in the process of trying to make sure patient has good support for the ventilator care and for possible adjustment if patient needs it. Patient tracheostomy was performed by Dr. Porter who recommended changing the trach in 1 month duration from the initial placement. Patient is a FULL CODE. 2. Protein-calorie malnutrition. Patient is on tube feedings. Patient's is interested in starting a trial of bolus feeding instead of continuous feeding. I still sent a script for the feeding supply through the [employer] system so patient can be able to obtain the supply on the day of discharge. I have also consulted [employer] to design a regimen for bolus feeding. We want to try at least 24 hours before patient is discharged to make sure patient can tolerate bolus feeding and patient's insulin regimen is adjusted. 3. Chronic indwelling Carter catheter with history of urinary tract infection (UTI). 4. Hypothyroidism. 5. Diabetes, on Levemir and sliding scale. Patient's long-acting insulin regimen has been adjusted to compensate patient's active diet adjustment at this moment. 6. Gout, on allopurinol. 7. Anxiety, on Wellbutrin and Xanax. 8. Deep venous thrombosis (DVT) prophylaxis. Patient is on Lovenox.
--- NOTE | 2016-09-22 18:53 | IPN ---
DATE OF VISIT: 09/21/2016 SUBJECTIVE: Patient is seen and examined in the room today with his home day care provider. Patient stated that he is stable. No acute changes. No overnight events reported. OBJECTIVE: VITAL SIGNS: Temperature is 97.3, pulse is 88, respiration rate 16, blood pressure is 116/65, pulse oximetry 97% on ventilator. GENERAL: No sign of acute distress. Patient is alert and awake, able to follow commands and answer some questions. HEENT: Trach in place. No foul smell or active discharge from the trach site. Trach is connected to a portable ventilator. CARDIOVASCULAR: Positive systolic murmur. Positive S1, S2. Regular rate. LUNGS: Fine crackle bilaterally in the lower bases. No wheezes or rhonchi. ABDOMEN: Soft. Percutaneous endoscopic gastrostomy (PEG) tube in place. No abdominal pain. Bowel sounds present. EXTREMITIES: No edema. No signs of cyanosis. LABORATORY DATA: WBC 9.4, hemoglobin 10.7, hematocrit 31.9, platelet count is 208. (said "space, new line" so wants a new paragraph) Sodium 138, potassium 4.5, chloride 99, carbon dioxide 31, BUN 24, creatinine 0.75, GFR greater than 60, fasting glucose 219, calcium 9.1, magnesium 1.8. ASSESSMENT AND PLAN: 1. Acute on chronic respiratory failure status post trach and on mechanical ventilator. Secondary to progression of amyotrophic lateral sclerosis (ALS). The home day care provider is being trained for the indwelling ventilator. Currently, social worker school is has been helping on home health nurse care applications??. Patient is also tube feeding. Home health nurse will give the patient extra support in the outpatient setting. At this moment, we will also try to make sure the patient is able to receive all the supplies for home use. Patient should followup with Dr. Porter for trach placement in approximately 1 month. 2. Protein-calorie malnutrition. On tube feeding. 3. Chronic indwelling Carter catheter with a history of urinary tract infection (UTI). 4. Hypothyroidism. On supplements. 5. Diabetes. On sliding scale and Levemir. 6. Gout. On allopurinol. 7. Anxiety. On Xanax and Wellbutrin. 8. Deep venous thrombosis (DVT) prophylaxis. Patient is on Lovenox.
[2016-09-23] VITALS: BP 142/75
[2016-09-23] MEDS: HumaLOG INSULIN (NovoLOG) PER UNIT SC SCH ×4 (00:16→18:03)
[2016-09-23] MEDS: MOM 30ML SUSPENSION UDC PEG SCH ×6 (01:32→21:05)
[2016-09-23 04:00] VITALS: BP 123/72
[2016-09-23 06:08] LABS: MEAN CORPUSCULAR HEMOGLOBIN 29.7 pg (27.0-33.0); MEAN CORPUSCULAR HGB CONC 33.7 g/dl (32.0-36.5); MEAN CORPUSCULAR VOLUME 88.2 fl (80.0-96.0); RED CELL DISTRIBUTION WIDTH 13.1 % (11.5-14.5); WHITE BLOOD COUNT 10.4 K/mm3 (4.0-10.0)
[2016-09-23 06:31] LABS: ANION GAP 6 MEQ/L (8-16); BLOOD UREA NITROGEN 25 MG/DL (7-18); CALCIUM LEVEL 9.6 MG/DL (8.8-10.2); CARBON DIOXIDE LEVEL 32 MEQ/L (21-32); CHLORIDE LEVEL 100 MEQ/L (98-107); CREATININE FOR GFR 0.71 MG/DL (0.70-1.30); GLOMERULAR FILTRATION RATE > 60.0 (>49); GLUCOSE, FASTING 166 MG/DL (80-110); POTASSIUM SERUM 4.5 MEQ/L (3.5-5.1); SODIUM LEVEL 138 MEQ/L (136-145)
[2016-09-23] MEDS: LEVOTHYROXINE 0.075 MG TAB (75 MCG) PO SCH (06:40)
[2016-09-23] MEDS: SLF 3 ML SYR IV SCH ×3 (06:41→21:06)
[2016-09-23] MEDS: ALBUTEROL SULFATE 2.5 MG/0.5 ML INH NEB SOLN NEB SCH ×4 (07:07→20:10)
[2016-09-23 08:14] VITALS: BP 103/57
[2016-09-23] MEDS: IPRATROPIUM 0.06% NASAL SPRAY 15 ML (ATROVENT) SCH ×3 (08:49→21:05)
[2016-09-23] MEDS: ALPRAZolam 0.25 MG TAB PO SCH ×3 (08:50→21:05)
[2016-09-23] MEDS: BACLOFEN 10 MG TAB PO SCH (08:50)
[2016-09-23] MEDS: ALLOPURINOL 100 MG TAB PO SCH ×2 (08:50→21:05)
[2016-09-23] MEDS: FOLIC ACID 1 MG TAB PO SCH (08:50)
[2016-09-23] MEDS: FLUTICASONE PROP 0.05% NASAL SPRAY 16 GM (FLONASE) SCH ×2 (08:50→21:05)
[2016-09-23] MEDS: METOPROLOL TART 12.5 MG PER 1/2 TAB PO SCH ×2 (08:50→21:06)
[2016-09-23] MEDS: buPROPion 75 MG TAB PO SCH (08:51)
[2016-09-23] MEDS: MAGNESIUM OXIDE 400 MG TAB (MAG-OX) PO SCH (08:51)
[2016-09-23] MEDS: ENOXAPARIN 40 MG/0.4 ML SYRINGE (J1650) SC SCH (08:52)
[2016-09-23] MEDS: MULTIVITAMIN/MINERALS LIQUID 15ML ORAL SYRINGE GT SCH (08:52)
[2016-09-23] MEDS ORDERED: LEVEMIR (INSULIN DETEMIR) 1 UNITS/0.01ML SC SCH (09:00)
[2016-09-23] MEDS: MIRALAX *UNIT DOSE* 17GM PACKET PEG SCH (09:01)
[2016-09-23 12:00] VITALS: BP 155/68
[2016-09-23 16:00] VITALS: BP 180/82
--- NOTE | 2016-09-23 18:41 | IPN ---
DATE: 09/23/2016 SUBJECTIVE: The patient is seen and examined in the room. The patient's is also present during the encounter. The patient started on a bolus of 2C yesterday. The patient tolerated it well. No overnight events were reported. OBJECTIVE: VITAL SIGNS: Temperature is 98.6, pulse 84, respirations 20, blood pressure is 103/57, pulse oximetry is 97% on portable ventilator. GENERAL: The patient is alert, awake, no acute distress. The patient is able to follow commands. HEENT: Trach in place. No foul smelling or active discharge from the trach site. Trach is connected to the portable ventilator. CARDIOVASCULAR: Positive systolic murmur. Positive S1, S2. Regular rate. LUNGS: Positive for fine crackles bilaterally. No wheezes or rhonchi. ABDOMEN: Soft. PEG tube in place. No abdominal pain. Bowel sounds present. EXTREMITIES: No edema. No cyanosis. LABORATORY DATA: WBC is 10.4, hemoglobin 11.3, hematocrit 33.5, platelet count 230. Sodium is 138, potassium 4.5, chloride is 100, carbon dioxide 32, BUN 25, creatinine is 0.71. GFR greater than 60, fasting glucose is 166. Calcium is 9.6. ASSESSMENT AND PLAN: 1. Acute on chronic respiratory failure. Status post trach and portable mechanical ventilators. Secondary to progression of amyotrophic lateral sclerosis (ALS). The patient's O2 saturation has been maintained in satisfactory range. The patient's family member and caregiver received a training for the ventilator management. warp worker has been helping to search for home nurse care to assist ventilator management, however, it has been a very difficult task and the patient should followup with Dr. Porter for trach placement approximately in one month after the initial placement. 2. Protein calorie malnutrition. The patient switched to bolus of tube feed. Instructions were given to family member and caregiver. They were also instructed now how to check the residual between the tube feeds. 3. Chronic indwelling Catrer catheter with a history of urinary tract infection (UTI). 4. Hypothyroidism. On supplements. 5. Diabetes. Currently Levemir is being adjusted for the change to tube feedings. The patient on sliding scale. 6. Gout. On allopurinol. 7. Anxiety. On Xanax and Wellbutrin. 8. Deep venous thrombosis (DVT) prophylaxis. On Lovenox. 9. Disposition. The [facility]'s [facility] the application today that the equipment will be delivered to patient's house tomorrow. Anticipate once all the equipment is in place, the patient may be discharged in the next 24 to 48 hours.
[2016-09-23 20:00] VITALS: BP 160/72
[2016-09-24] VITALS: BP 154/71
[2016-09-24] MEDS: HumaLOG INSULIN (NovoLOG) PER UNIT SC SCH ×3 (00:28→12:28)
[2016-09-24] MEDS: MOM 30ML SUSPENSION UDC PEG SCH ×4 (02:52→14:00)
[2016-09-24 04:00] VITALS: BP 141/71
[2016-09-24 05:21] LABS: MEAN CORPUSCULAR HEMOGLOBIN 28.9 pg (27.0-33.0); MEAN CORPUSCULAR HGB CONC 33.4 g/dl (32.0-36.5); MEAN CORPUSCULAR VOLUME 86.7 fl (80.0-96.0); RED CELL DISTRIBUTION WIDTH 12.8 % (11.5-14.5); WHITE BLOOD COUNT 11.2 K/mm3 (4.0-10.0)
[2016-09-24 05:34] LABS: ANION GAP 6 MEQ/L (8-16); BLOOD UREA NITROGEN 23 MG/DL (7-18); CALCIUM LEVEL 9.5 MG/DL (8.8-10.2); CARBON DIOXIDE LEVEL 34 MEQ/L (21-32); CHLORIDE LEVEL 98 MEQ/L (98-107); CREATININE FOR GFR 0.64 MG/DL (0.70-1.30); GLOMERULAR FILTRATION RATE > 60.0 (>49); GLUCOSE, FASTING 169 MG/DL (80-110); POTASSIUM SERUM 4.3 MEQ/L (3.5-5.1); SODIUM LEVEL 138 MEQ/L (136-145)
[2016-09-24] MEDS: LEVOTHYROXINE 0.075 MG TAB (75 MCG) PO SCH (06:32)
[2016-09-24] MEDS: SLF 3 ML SYR IV SCH (06:33)
[2016-09-24] MEDS: ALBUTEROL SULFATE 2.5 MG/0.5 ML INH NEB SOLN NEB SCH ×2 (07:19→11:04)
[2016-09-24 08:00] VITALS: BP 105/64
[2016-09-24] MEDS: ALPRAZolam 0.25 MG TAB PO SCH (08:34)
[2016-09-24] MEDS: ALLOPURINOL 100 MG TAB PO SCH (08:34)
[2016-09-24] MEDS: FOLIC ACID 1 MG TAB PO SCH (08:34)
[2016-09-24 08:35] VITALS: BP 105/64
[2016-09-24] MEDS: METOPROLOL TART 12.5 MG PER 1/2 TAB PO SCH (08:35)
[2016-09-24] MEDS: MAGNESIUM OXIDE 400 MG TAB (MAG-OX) PO SCH (08:35)
[2016-09-24] MEDS: buPROPion 75 MG TAB PO SCH (08:35)
[2016-09-24] MEDS: ENOXAPARIN 40 MG/0.4 ML SYRINGE (J1650) SC SCH (08:36)
[2016-09-24] MEDS: FLUTICASONE PROP 0.05% NASAL SPRAY 16 GM (FLONASE) SCH (08:36)
[2016-09-24] MEDS: IPRATROPIUM 0.06% NASAL SPRAY 15 ML (ATROVENT) SCH (08:36)
[2016-09-24] MEDS: MULTIVITAMIN/MINERALS LIQUID 15ML ORAL SYRINGE GT SCH (08:37)
[2016-09-24] MEDS: MIRALAX *UNIT DOSE* 17GM PACKET PEG SCH (08:42)
[2016-09-24] MEDS ORDERED: LEVEMIR (INSULIN DETEMIR) 1 UNITS/0.01ML SC SCH (09:00)
[2016-09-24] MEDS ORDERED: INSULANT SC (10:14)
[2016-09-24] MEDS ORDERED: IPRA6SP (10:30)
[2016-09-24] MEDS ORDERED: XANA0.25 PO (10:30)
[2016-09-24] MEDS: ACETAMINOPHEN 325 MG/10.15 ML UDC GT PRN (11:07)
--- NOTE | 2016-09-24 18:22 | DSES ---
DATE OF ADMISSION: 09/02/2016 DATE OF DISCHARGE: 09/24/2016 PRIMARY CARE PROVIDER: [facility] ACCOUNT SERVICE ASSOCIATE: Dr. Narendra Khan, Dr. Edvin Monte, Dr. Walker ENT SPECIALIST: Dr. Porter PROCEDURES: Exploration of the neck and replacement of trach tube by Dr. Porter on 09/09/2016. ADMISSION/DISCHARGE DIAGNOSIS: 1. Acute on chronic respiratory failure secondary to ALS progression, status post tracheotomy. 2. Protein-calorie malnutrition. 3. Chronic indwelling Carter catheter with a history of urinary tract infection. 4. Percutaneous endoscopic gastrostomy (PEG) tube feedings. 5. Hypothyroidism. 6. Diabetes. 7. Gout. 8. Anxiety. HOSPITALIZATION COURSE: The patient is a 67-year-old male who presented to [facility] on 09/02/2016 for acute respiratory failure even with home bilevel positive airway pressure (BiPAP) use. The patient has progression of ALS that required higher oxygen support. The patient was admitted to the intensive care unit (ICU), and the patient's BiPAP machine was adjusted. However, tracheotomy was recommended since during the admission process. Initially, the urgent need for tracheotomy has been explained to the patient and the patient's family. However, they were not able to make the decision, so the patient's oxygen saturation was being maintained by continuously adjusting the BiPAP settings. On 08/07/2016, the patient's family agreed for the tracheotomy, and the patient was brought to the operating room by Dr. Porter. Then, the patient was placed on the ventilator through the trach. On 09/09/2016, the patient was found to have a displaced tracheostomy tube. Then, Ear, Nose and Throat (ENT) specialist, Dr. Porter, was notified and the patient was brought to the operating room (OR) on 09/09/2016 for trach tube replacement. The patient's ventilator setting has been adjusted continuously. By 09/13/2016, the patient was more medically stable, and the patient was downgraded from the intensive care unit (ICU) to the progressive care unit (PCU) and the patient's care was transferred to the hospitalist team. The patient's family member and home caregiver has received training on handling the ventilator, and social media campaign manager has been involved to help the patient to look for a home health nurse to assist the patient and the patient's family member for ventilator management. However, the process was rather difficult. During the hospitalization stay, initially the patient had been on continuous tube feeding. Later, the patient's family expressed the wish to start a trial of bolus PEG tube feeding. A nutritional specialist has been consulted, and the bolus tube feed regimen has been designed. And the patient's diabetes medication regimen has also been adjusted accordingly. support services coordinator has also been assisting with contacting the [facility] to obtain the ventilator and tube feeding supply for the patient. Later, the patient was able to find a commercial company providing ventilator support, and the patient has confirmation received the medication and medical equipment shipment from the [employer] system. And on 09/24/2016, the patient is discharged from the [facility] with the recommendation to followup with the primary care provider ([facility]) in 1 week, and the patient should followup with Dr. Porter in a few weeks for the tracheotomy tube examination, and the patient should be followed by the lean manufacturing engineer in 1 week. OBJECTIVE: VITAL SIGNS: Temperature is 98, pulse is 92, respirations 20, blood pressure 105/64, pulse oximetry is 98% on the portable ventilator. LABORATORY DATA: WBC is 11.2, hemoglobin 11.1, hematocrit 33.2, platelet count is 265. Sodium is 138, potassium 4.3, chloride is 98, carbon dioxide 34, BUN 23, creatinine 0.64. GFR is greater than 60, fasting glucose 169, calcium is 9.5. Microbiology: Blood culture is no growth after 5 days times two sets, sample obtained on 09/02/2016. Urine culture obtained on 09/02/2016 showed yeast-like organism. Urine culture obtained through the Carter catheter on 09/19/2016 showed Staphylococcus epididymis. DISCHARGE MEDICATION: - Xanax 0.25 mg by mouth three times a day, maximum daily dose is three - Lantus 15 units subcutaneously - ipratropium two sprays per nasal three times a day - metoprolol tartrate 12.5 mg by mouth twice a day - Tylenol 650 mg by mouth every 6 hours as needed for fever or chills - Ventolin two puff inhalation four times a day as needed - allopurinol 100 mg by mouth twice a day - aspirin 81 mg by mouth daily - atorvastatin 40 mg by mouth nightly - baclofen 10 mg by mouth every 2 days - Dulcolax 5 mg by mouth every 2 days - cetirizine 10 mg by mouth daily - vitamin D 1000 units by mouth twice a day - fenofibric acid 135 mg by mouth nightly - Flonase one spray per nasal twice a day - folic acid 1 mg by mouth daily - Perforomist 20 mcg inhalation twice a day - Lasix 20 mg by mouth daily - hydroxyzine 25 mg by mouth nightly as needed for insomnia - NovoLog subcu before food and nightly per sliding scale - Synthroid 75 mcg by mouth daily - magnesium oxide 400 mg by mouth daily - metformin 1000 mg by mouth twice a day - multivitamin one tablet by mouth daily - nitroglycerin 0.5 mg sublingual every 5 minutes as needed for chest pain - ondansetron 4 mg by mouth as needed for nausea/vomiting - tamsulosin 0.8 mg by mouth nightly DISCHARGE INSTRUCTIONS: Discharge the patient home with portable ventilator through the tracheotomy. The patient should continue the diet through tube feeding, followed by the dietitian instructions. The patient was instructed to check the residual before each feed. The patient should followup with his primary care provider at the [facility] in 1 week. The patient was instructed to followup with Dr. Porter at the scheduled time for tracheotomy recheck, and the patient should followup with the lean manufacturing engineer in 1 week. DISCHARGE CONDITION: Guarded. The patient has continued progression of ALS to the extent the patient has required ventilator support. DISCHARGE TIME: Greater than 30 minutes.
== END 2016-09-24 15:46 | disposition home health service (06) | DRG 4 ==
LOC: EDBD 15:14 → M ED 16:32 → M ICU 17:19 → M PCU 09-12 22:00
PROVIDERS: ADMIT Internal Medicine Pulmonary Disease; ATTEND Internal Medicine
PROC: 0B110F4 Bypass Trachea to Cutaneous with Tracheostomy Device, Open Approach (ICD-10-PCS; principal; 2016-09-02)
PROC: 0B21XFZ Change Tracheostomy Device in Trachea, External Approach (ICD-10-PCS; 2016-09-09)
DX: G12.21 Amyotrophic lateral sclerosis (principal); J96.21 Acute and chronic respiratory failure with hypoxia; J96.22 Acute and chronic respiratory failure with hypercapnia; E46 Unspecified protein-calorie malnutrition; J95.03 Malfunction of tracheostomy stoma; E87.0 Hyperosmolality and hypernatremia; F41.9 Anxiety disorder, unspecified; M10.9 Gout, unspecified; E11.9 Type 2 diabetes mellitus without complications; E03.9 Hypothyroidism, unspecified; Z79.899 Other long term (current) drug therapy; Z79.4 Long term (current) use of insulin; I25.10 Atherosclerotic heart disease of native coronary artery without angina pectoris; K59.00 Constipation, unspecified; J44.9 Chronic obstructive pulmonary disease, unspecified; I10 Essential (primary) hypertension; Z79.82 Long term (current) use of aspirin

== ENCOUNTER 2016-11-10 01:37 | Inpatient (IN) | payer OTHER, MEDICARE ==
[2016-11-10] VITALS (39 sets, daily range): BP systolic 60–189; BP diastolic 30–115; O2SAT 99
[~2016-11-10] VITALS: Ht 172.7 cm; Wt 68.5 kg
[~2016-11-10 01:37] MED LIST changes: +ALLO100T PEG; -ALLO100T PO; +ALPR0.25 PO; -ATOR1TAB18 PO; +ATOR80TA59 PO; +BACL10TA2 PEG; -BACL10TA2 PO; +BISA10SU4 PR; +CETI10TA PEG; +DULC5TAB PO; -FOLI1TAB2 PO; +FOLI1TAB4 PEG; +HYDR1CAP25 PEG; -HYDR1CAP25 PO; +IPRA6SP; +LEVO75TA4 PEG; -LEVO75TA4 PO; +MAGN400T2 PEG; -MAGN400T2 PO; -METF1000 PO; +METF10004 PEG; +METF10004 PO; +METO1TAB87 PO; +METO25TA4 PO; -METO25TAB PO; -METO50TA2 PO; +METO50TA7 PO; +OMEG100011 PEG; -ONDA1TAB15 PO; +ONDA4TAB5 PO; +TYLE325T5 PEG; -TYLE325T5 PO; +VITA100066 PEG; +XANA0.25 PO
[2016-11-10] MEDS ORDERED: [UNRECOGNIZED DRUG - CODE] TOP (02:02)
[2016-11-10] MEDS ORDERED: DICL1GEL3 TD (02:02)
[2016-11-10 02:55] LABS: VENOUS BASE EXCESS 5.3 (-2.0-2.0); VENOUS O2 SATURATION 80.9 % (60.0-80.0); VENOUS PARTIAL PRESSURE CO2 59.2 mmHg (38.0-50.0); VENOUS PARTIAL PRESSURE O2 47.8 mmHg (30.0-50.0); VENOUS STANDARD HCO3 28.9 MEQ/L; VENOUS TOTAL CO2 34.3 MEQ/L (24.0-28.0)
[2016-11-10] MEDS ORDERED: ONDANSETRON 4MG/2ML VIAL (J2405) IV ONE (03:00)
[2016-11-10] MEDS: MORPHINE 2 MG/ML 1ML SYRINGE IV PRN (03:00)
[2016-11-10 03:07] LABS: ALBUMIN 3.3 GM/DL (3.2-5.2); ALBUMIN/GLOBULIN RATIO 1.06 (1.00-1.93); ALKALINE PHOSPHATASE 189 U/L (45-117); ALT/SGPT 35 U/L (12-78); ANION GAP 11 MEQ/L (8-16); AST/SGOT 21 U/L (15-37); BILIRUBIN,DIRECT 0.1 MG/DL (0.0-0.2); BILIRUBIN,TOTAL 0.5 MG/DL (0.2-1.0); BLOOD UREA NITROGEN 29 MG/DL (7-18); CALCIUM LEVEL 8.8 MG/DL (8.8-10.2); CARBON DIOXIDE LEVEL 29 MEQ/L (21-32); CHLORIDE LEVEL 80 MEQ/L (98-107); CREATININE FOR GFR 0.62 MG/DL (0.70-1.30); GLOMERULAR FILTRATION RATE > 60.0 (>49); GLUCOSE, FASTING 220 MG/DL (80-110); POTASSIUM SERUM 4.3 MEQ/L (3.5-5.1); SODIUM LEVEL 120 MEQ/L (136-145); TOTAL PROTEIN 6.4 GM/DL (6.4-8.2)
[2016-11-10 03:13] LABS: BASO # 0.1 K/mm3 (0.0-0.2); BASO % 0.7 % (0.0-1.0); EOS # 0.2 K/mm3 (0.0-0.50); EOS % 1.1 % (0.0-3.0); LARGE UNSTAINED CELL # 0.1 K/mm3 (0.0-0.4); LARGE UNSTAINED CELL % 0.9 % (0.0-4.0); LYMPH # 1.4 K/mm3 (1.5-4.5); LYMPH % 9.8 % (24.0-44.0); MEAN CORPUSCULAR HEMOGLOBIN 29.1 pg (27.0-33.0); MEAN CORPUSCULAR HGB CONC 34.9 g/dl (32.0-36.5); MEAN CORPUSCULAR VOLUME 83.4 fl (80.0-96.0); MONO # 0.8 K/mm3 (0.0-0.8); MONO % 5.4 % (0.0-5.0); NEUTROPHILS # 11.8 K/mm3 (1.8-7.7); NEUTROPHILS % 82.2 % (36.0-66.0); PLATELET COUNT, AUTOMATED 216 k/mm3 (150-450); RED CELL DISTRIBUTION WIDTH 14.8 % (11.5-14.5); WHITE BLOOD COUNT 14.4 K/mm3 (4.0-10.0)
[2016-11-10] MEDS ORDERED: ISOVUE-370 76% 100ML VIAL (Q9967) As Ordered ONE (03:29)
--- NOTE | 2016-11-10 03:29 | REP ---
Clinical: Shortness of breath. Comparison: 09/17/2016. Findings: Evidence for prior sternotomy, CABG, and tracheostomy. The cardiac silhouette is normal for technique. Bilateral perihilar opacities and/or adenopathy is appreciated. Differential diagnosis includes multifocal pneumonia as well as early CHF/pulmonary vascular congestion. No obvious effusion. No pneumothorax. Skeletal structures intact. Impression: Perihilar opacities and/or adenopathy. Differential diagnosis includes CHF/pulmonary vascular congestion and multifocal pneumonia / atelectasis. Signed by Josh Saeed MD 11/10/2016 03:20 A
[2016-11-10] MEDS ORDERED: NS 1,000 ML IV ONE (03:30)
[2016-11-10 03:34] LABS: YEAST LIKE CELL URINE AUTO SMALL
--- NOTE | 2016-11-10 04:10 | REPUSA ---
CLINICAL HISTORY: Dyspnea, elevated d-dimers, exclude PE. TECHNIQUE: Multiple incremental axial, coronal and oblique images are obtained from the thoracic inle t to the upper abdomen. Intravenous contrast material was administered as per pulmonary embolism prot ocol. COMMENTS: Small left pleural effusion. Bilateral passive atelectatic airspace disease of the lower lobes. Unremarkable median sternotomy wires. Enlarged main pulmonary artery suggestive of pulmonary hypertension. Midline tracheostomy tube is in good position. There is excellent opacification of pulmonary arterial system without evidence for pulmonary embolism . Aneurysmal ascending aorta measuring 4.1 cm without evidence for dissection or aneurysm. There is no evidence of pleural or parenchymal mass. There is no evidence of hilar or mediastinal lym phadenopathy. The heart and great vessels are within normal limits. Images of the upper abdomen demonstrate no evidence of adrenal mass. The bony structures are free of lytic or blastic lesions. Multilevel degenerative changes are seen in volving the visualized thoracolumbar spine. Scattered calcifications are seen involving the aorta and major branches compatible with atherosclero sis. IMPRESSION: No evidence for pulmonary embolism. Small left pleural effusion. Bilateral basilar atelectatic pulmonary disease. Midline tracheostomy tube is in good position. Distended stomach suggestive of gastroparesis. Calcified hepatic and splenic granulomas. Thank you for your kind referral of this patient.
[2016-11-10] MEDS ORDERED: LORazepam 2 MG/ML VIAL (J2060) IV STA (04:30)
[2016-11-10] MEDS ORDERED: VITACHTA PEG (04:37)
[2016-11-10] MEDS ORDERED: FLUO1CRE2 EXT (04:37)
[2016-11-10] MEDS ORDERED: FURO40TA2 PEG (04:37)
[2016-11-10] MEDS ORDERED: FINA5TAB2 PEG (04:37)
[2016-11-10] MEDS ORDERED: VASEGEL EXT ×2 (04:37)
[2016-11-10] MEDS ORDERED: ALPR0.5T3 PEG (04:37)
[2016-11-10] MEDS ORDERED: ASPI81CH PEG (04:37)
[2016-11-10] MEDS ORDERED: ASCO500T PEG (04:37)
[2016-11-10] MEDS ORDERED: ONDA4TAB6 PEG (04:37)
[2016-11-10] MEDS ORDERED: METO25TA4 PEG (04:37)
[2016-11-10] MEDS ORDERED: CLIN150C14 PEG (04:37)
[2016-11-10] MEDS ORDERED: METH1TAB PEG (04:37)
[2016-11-10] MEDS ORDERED: IPRA6SP (04:37)
[2016-11-10] MEDS ORDERED: INSULANT SC (04:37)
[2016-11-10] MEDS ORDERED: ATOR80TA59 PEG (04:37)
[2016-11-10] MEDS ORDERED: HYDR50TA70 PEG (04:53)
[2016-11-10] MEDS ORDERED: BUPR75TA5 PEG (04:53)
[2016-11-10] MEDS ORDERED: ONDANSETRON 4 MG ORAL DISINTEGRATING TAB (S0181) PEG PRN (05:00)
[2016-11-10] MEDS ORDERED: IPRATROPIUM 0.5MG/ALBUTEROL 2.5MG INH SOL UD 3ML (DUONEB)(J7620) NEB PRN (05:15)
[2016-11-10] MEDS ORDERED: GLUCOSE 4 GM CHEW TABLET PO PRN (05:15)
[2016-11-10] MEDS ORDERED: GLUCAGON FOR INJ 1 MG VIAL (J1610) SC PRN (05:15)
[2016-11-10] MEDS ORDERED: DEXTROSE 50% 50 ML SYRINGE IV PRN (05:15)
[2016-11-10] MEDS ORDERED: hydrALAZINE INJ 20 MG/ML VIAL IV ONE (05:15)
[2016-11-10] MEDS: PIPERACILLIN/TAZOBACTAM SOD 3.375 GM in D5W MINI-BAG PLUS 50 ML IV SCH ×3 (06:00→18:05)
[2016-11-10] MEDS ORDERED: ISOSORBIDE DIN (ISORDIL) 10 MG TAB PEG SCH (06:00)
[2016-11-10] MEDS ORDERED: SODIUM CHLORIDE 0.9% 1000 ML IV ONE (06:30)
--- NOTE | 2016-11-10 06:31 | PHACANCOPD ---
PHARMACY VANCOMYCIN DOSING Pt Demographics Demographics Patient Age:66 , Weight:71.800 , Gender: male Adjusted Body Weight Date: 11/10/16, Adjusted Body Weight: [71.8] Kg actual weight Vancomycin Vancomycin indication: ventilator acquired pneumonia Vancomycin Target Ranges: 15-20 mcg/ml Vancomycin Load Y/N: Yes Load Dose Date Time Vancomycin Load Dose: 2 gm Date: 11/10 Time: 0800 Vancomycin Dose Date: 11/10/16. Current Vancomycin Dose: [1 gm iv q12h] Intermittent Dosing?: No Labs Labs Laboratory Tests 11/10/16 01:49 Red Blood Count 4.16 L, Mean Corpuscular Volume 83.4, Mean Corpuscular Hemoglobin 29.1, Mean Corpuscular Hemoglobin Concent 34.9, Red Cell Distribution Width 14.8 H, Neutrophils (%) (Auto) 82.2 H, Lymphocytes (%) (Auto ) 9.8 L, Monocytes (%) (Auto) 5.4 H, Eosinophils (%) (Auto) 1.1, Basophils (%) ( Auto) 0.7, Neutrophils # (Auto) 11.8 H, Lymphocytes # (Auto) 1.4 L, Monocytes # (Auto) 0.8, Eosinophils # (Auto) 0.2, Basophils # (Auto) 0.1 Micro Microbiology 11/10/16 Blood Culture, Received Pending 11/10/16 Urine Culture, Received Pending Creatinine Clearance Date:11/10/16. Creatinine Clearance: [115].calculated Pending Labs vanco trough due 11/11@0800 Assessment and Plan Maintaining Current Dose?: Yes Reason for dose change: No Dose Change Pharmacist Note Pharmacist Note Date: 11/10/16. Pharmacist note:66 YOM admitted d/t ventilator acquired pneumonia: regimen of pip/tazo 3.375 gm iv [id number] and Vancomycin per pharmacy consult begun-Vancomycin 2 GM loading dose ordered for 0800,then to continue at 1 gm iv [id number]: first trough will be drawn 11/11@0800;SCR=0.62 : calculated CRCL= 115: will continue to follow levels and labs K[facility]IN [facility]INO [facility] Nov 10, 2016 06:31
--- NOTE | 2016-11-10 06:35 | HPE ---
DATE OF ADMISSION: 11/10/2016 CHIEF COMPLAINT: Shortness of breath. Myalgia. PRIMARY CARE PROVIDER: [facility] PULMONARY CRITICAL CARE PHYSICIANS DURING PREVIOUS ADMISSION: Dr. Narendra Khan, Dr. Edvin Monte, and Dr. Walker. ENT: Dr. Porter. PRIMARY CARE PROVIDER: The patient sees [facility], as well as Dr. Locke. HISTORY OF PRESENT ILLNESS: This is a 56-year-old male patient with underlying medical history of acute on chronic respiratory failure secondary to amyotrophic lateral sclerosis (ALS) with tracheostomy tube vent and percutaneous endoscopic gastrostomy (PEG) tube feeding from home with home tabletop ventilator, and underlying history of protein calorie malnutrition, chronic Carter with history of frequent urinary tract infection (UTI), PEG feeding, hypothyroidism, diabetes, gastroesophageal reflux disease (GERD), anxiety. The patient presented with a three-day history of shortness of breath, weakness, diffuse myalgia, and feeling warm, is afebrile, reported thick secretions from the tracheostomy. No change in urine color. Denies any diarrhea. History is limited secondary to patient being trached on the ventilator. No sick contact at home. The patient was recently admitted in August 2016, in which the patient was trached and pegged. Recently, the patient over the past week was started on three new medications which include clindamycin, finasteride, as well as methenamine. The patient denies any diarrhea. Does have a history of coronary arterial disease with coronary artery bypass graft (CABG). Denies any abdominal pain, chest pain, pressure, discomfort. ALLERGIES: NYSTATIN. PAST MEDICAL HISTORY: 1. Coronary arterial disease. 2. Chronic respiratory failure with tracheostomy tube vent secondary to ALS. 3. Progressive ALS. 4. Chronic obstructive pulmonary disease (COPD). 5. Hypertension. 6. Chronic Carter. 7. Hypothyroidism. 8. Thoracic kyphosis. 9. Gout. 10. Diabetes. 11. Chronic constipation. 12. Anxiety. PAST SURGICAL HISTORY: 1. Cardiac stent. 2. CABG 2008. 3. Cardiac stent 1999. 4. Tracheostomy. 5. Surgery for colonic obstruction with appendectomy, colonoscopy, trach, and PEG. FAMILY HISTORY: Unknown. SOCIAL HISTORY: Patient from home. [id number] smoking history. Denies alcohol drinking. REVIEW OF SYSTEMS: Limited secondary to patient's current medical condition. Other than reported shortness of breath, weakness, myalgia, all other review of systems is negative. HOME MEDICATIONS: - clindamycin 300 mg via PEG twice a day - Lasix 20 mg via PEG daily - metformin 1000 mg by mouth twice a day - diclofenac 2 grams four times a day as needed - fluorouracil cream 5% four to five times a week - methenamine via PEG 1 gram twice a day - Vaseline cream - urea cream external daily - acetaminophen 650 mg via PEG every six hours as needed - allopurinol 100 mg via PEG twice a day - Xanax 0.5 mg three times a day - vitamin C 500 mg twice a day - aspirin 81 mg daily - Lipitor 80 mg at bedtime - baclofen 10 mg at bedtime - Wellbutrin 75 mg daily - Zyrtec 10 mg daily - vitamin D 1000 units twice a day - finasteride 5 mg at bedtime - Flonase 50 mcg twice a day - folic acid 1 mg daily - formoterol inhalation four times a day - hydroxyzine 50 mg every six hours - Lantus 15 units every morning - ipratropium twice a day - Synthroid 75 mcg daily - magnesium oxide 400 mg daily - metoprolol 25 mg twice a day - multivitamin daily - omega 3 fatty acid two capsules by mouth twice a day - Zofran 4 mg every six hours as needed PHYSICAL EXAMINATION: VITAL SIGNS: Temperature 99.2, pulse 97, respirations 16, blood pressure 195/91, pulse oximetry 96% on ventilator. GENERAL: The patient alert, awake, in no acute distress. Tracheostomy tube vent. HEENT: Normocephalic, atraumatic. NECK: Supple. Tracheostomy in place with dried blood in the surrounding gauze. PULMONARY: Coarse breath sounds bilaterally. Diminished breath sounds left lower base. CARDIAC: Regular S1, S2. ABDOMEN: Soft. PEG in place. Seems to be clean, dry and intact. Soft, nontender. Positive bowel sounds. EXTREMITIES: No edema bilateral lower extremities. LABORATORY DATA: WBC 14.4, hemoglobin and hematocrit 12.1 over 34.6, platelets 216. Chemistry: Sodium 120, potassium 4.3, chloride 80, bicarbonate 29, BUN 29, creatinine 0.6, lactic acid 3, troponin negative. IMAGING: CT angiogram of the lung: No evidence of pulmonary embolism (PE). Small left pleural effusion. Bibasilar atelectasis. Midline tracheostomy tube in good position. Distended stomach suggestive of gastroparesis. ASSESSMENT AND PLAN: This is a 66-year-old male patient with underlying medical history of coronary arterial disease, chronic respiratory failure secondary to progressive amyotrophic lateral sclerosis (ALS), protein calorie malnutrition, chronic Carter with frequent urinary tract infection, percutaneous endoscopic gastrostomy (PEG) feeding, hypothyroidism, anxiety, type 2 diabetes, gout, chronic obstructive pulmonary disease (COPD), hypothyroidism, thoracic kyphosis, chronic constipation, presented to the hospital with shortness of breath, admitted for likely ventilator-associated pneumonia, hyponatremia, and hypertensive urgency. 1. Ventilator-associated pneumonia: Will place the patient on Zosyn and vancomycin. Followup sputum cultures, methicillin-resistant Staphylococcus aureus (MRSA) screening, blood cultures. Repeat lactic acid. Followup C-reactive protein, respiratory panel. 2. Hyponatremia, unknown etiology: At this time would hold clindamycin and methenamine for now, and holding Lasix. Will get urine studies, urine electrolytes, urine sodium, uric acid, urine potassium, chloride, will get urine osmolality. Followup thyroid studies. Followup sodium level every four hours. Will reduce free-water flushes from the PEG feeding. 3. Hypertensive urgency possibly secondary to anxiety. Given benzodiazepine by emergency room provider. Hydralazine one-time dose has been given. Isosorbide dinitrate has been ordered every eight hours 10 mg. Continue Lopressor. Additional blood pressure medication as ordered. Goal blood pressure of systolic 160, diastolic 90. Would adjust blood pressure medication as needed. 4. Chronic respiratory failure secondary to ALS: Patient on portable table-top ventilator. Will continue current settings, Peridex. Treatment for ventilator-associated pneumonia as above. Arterial blood gas (ABG) appreciated. 5. Hypothyroidism. Continue Synthroid. Followup thyroid studies. 6. Diabetes. Insulin basal bolus. Fingerstick every six hours. Glucerna for tube feeding. 7. Protein calorie malnutrition. Continue tube feeding, supportive care, daily weight. 8. Anxiety. Continue current medication. 9. History of coronary arterial disease. Continue aspirin and statin. Followup cardiac enzymes. Will get electrocardiogram (EKG). 10. Chronic urinary tract infection (UTI). Will need further outpatient followup. 11. Gastroparesis. Started on Reglan. 12. Depression. Continue current medication. 13. Benign prostatic hypertrophy (BPH). Continue current medication. 14. Deep venous thrombosis (DVT) prophylaxis. Heparin subcutaneous. DISPOSITION PLANNING: Pending clinical improvement. Workup for hyponatremia.
[2016-11-10] MEDS: METOCLOPRAMIDE INJ 10MG/2ML VIAL (J2765) IV SCH ×3 (06:48→18:06)
[2016-11-10] MEDS: LEVOTHYROXINE 75MCG TABLET (0.075MG) PEG SCH (06:48)
[2016-11-10 07:27] LABS: URIC ACID,RANDOM URINE 9.3 MG/DL
[2016-11-10 07:48] LABS: ANION GAP 7 MEQ/L (8-16); BLOOD UREA NITROGEN 26 MG/DL (7-18); CARBON DIOXIDE LEVEL 31 MEQ/L (21-32); CHLORIDE LEVEL 89 MEQ/L (98-107); CREATININE FOR GFR 0.56 MG/DL (0.70-1.30); GLOMERULAR FILTRATION RATE > 60.0 (>49); GLUCOSE, FASTING 175 MG/DL (80-110); MAGNESIUM LEVEL 1.7 MG/DL (1.8-2.4); POTASSIUM SERUM 4.1 MEQ/L (3.5-5.1); SODIUM LEVEL 127 MEQ/L (136-145); T UPTAKE 35 % (33-40); THYROXINE (T4) 9.3 UG/DL (4.5-12.0)
[2016-11-10] MEDS: FORMOTEROL FUMARATE 20 MCG/2 ML INHALATION SOLUTION (PERFOROMIST) INH SCH ×3 (07:58→19:40)
[2016-11-10] MEDS: IPRATROPIUM 0.5MG/ALBUTEROL 2.5MG INH SOL UD 3ML (DUONEB)(J7620) NEB SCH ×3 (08:00→19:19)
[2016-11-10 08:06] LABS: OSMOLALITY URINE 134 MOSM/KG (500-800)
[2016-11-10] MEDS: FOLIC ACID 1 MG TAB PEG SCH (08:45)
[2016-11-10] MEDS: buPROPion 75 MG TAB PEG SCH (08:45)
[2016-11-10] MEDS: ASCORBIC ACID 500 MG TAB PEG SCH ×2 (08:45→21:31)
[2016-11-10] MEDS: SENOKOT S TAB PO SCH ×2 (08:45→21:31)
[2016-11-10] MEDS: ALLOPURINOL 100 MG TAB PEG SCH ×2 (08:45→21:32)
[2016-11-10] MEDS: ASPIRIN 81 MG CHEW TABLET PEG SCH (08:46)
[2016-11-10] MEDS: ALPRAZolam 0.5 MG TAB PEG SCH ×3 (08:46→21:00)
[2016-11-10] MEDS: LEVEMIR (INSULIN DETEMIR) 1 UNITS/0.01ML SC SCH (08:47)
[2016-11-10] MEDS: CETIRIZINE (ZyrTEC) 10 MG TAB PEG SCH (08:47)
[2016-11-10] MEDS: HEPARIN SOD (PORCINE) 5000 UNITS/ML VIAL SC SCH ×2 (08:47→21:30)
[2016-11-10] MEDS: hydrOXYzine 50 MG TAB PEG SCH ×3 (08:47→18:06)
[2016-11-10] MEDS: HumaLOG INSULIN (NovoLOG) PER UNIT SC SCH ×3 (08:48→18:05)
[2016-11-10] MEDS: CHLORHEXIDINE GLUCONATE 0.12 % 15ML UDC (PERIDEX ORAL RINSE) MT SCH ×2 (08:48→21:31)
[2016-11-10] MEDS: VANCOMYCIN HCL 1,000 MG, VIAL MATE ADAPTER 1 EACH in D5W 250 ML IV SCH ×3 (08:52→21:25)
[2016-11-10] MEDS: FLUTICASONE PROP 0.05% NASAL SPRAY 16 GM (FLONASE) SCH ×2 (08:52→21:32)
[2016-11-10] MEDS: PANTOPRAZOLE 40MG INJ (PROTONIX) (C9113) IV SCH (08:52)
[2016-11-10] MEDS: MULTIVITAMINS CHILDREN'S CHEWABLE TABLET XX SCH (08:52)
[2016-11-10] MEDS: MAGNESIUM OXIDE 400 MG TAB (MAG-OX) PO SCH (08:53)
[2016-11-10] MEDS: LACTOBACILLUS ACIDOPHILUS CAP (BACID) PO SCH ×3 (08:53→21:31)
[2016-11-10] MEDS: OMEGA-3 1050MG CAPSULE PO SCH ×2 (08:53→21:32)
[2016-11-10] MEDS: VITAMIN D 1,000 INTERNATIONAL UNITS TABLET PEG SCH ×2 (08:53→21:31)
[2016-11-10] MEDS ORDERED: PANTOPRAZOLE 40MG TAB (PROTONIX) PO SCH (09:00)
[2016-11-10] MEDS: METOPROLOL TART 25 MG TABLET PEG SCH ×2 (09:00→20:59)
[2016-11-10 10:15] LABS: ANION GAP 5 MEQ/L (8-16); BLOOD UREA NITROGEN 25 MG/DL (7-18); CALCIUM LEVEL 9.1 MG/DL (8.8-10.2); CARBON DIOXIDE LEVEL 31 MEQ/L (21-32); CHLORIDE LEVEL 94 MEQ/L (98-107); CREATININE FOR GFR 0.56 MG/DL (0.70-1.30); GLOMERULAR FILTRATION RATE > 60.0 (>49); GLUCOSE, FASTING 161 MG/DL (80-110); MAGNESIUM LEVEL 1.6 MG/DL (1.8-2.4); POTASSIUM SERUM 3.9 MEQ/L (3.5-5.1); SODIUM LEVEL 130 MEQ/L (136-145)
[2016-11-10] MEDS: D5W 1,000 ML IV SCH ×2 (10:48→21:29)
[2016-11-10] MEDS ORDERED: D5W 250 ML IV ONE (11:00)
[2016-11-10 11:12] LABS: CORTISOL AM 9.5 UG/DL (4.3-22.4)
[2016-11-10] MEDS ORDERED: MAG SULF 1GM/100ML (MAG RUN) 1 GM in APPROPRIATE DILUENT 1 EA IV ONE (11:45)
--- NOTE | 2016-11-10 12:00 | CR ---
DATE OF CONSULTATION: 11/10/2016 CONSULTING PHYSICIAN: Janice Crooks MD RACEBOOK WRITER: Quan Walker MD HISTORY OF PRESENT ILLNESS: 66-year-old male who presented with shortness of breath, unable to take a big breath with a history of ALS, coronary artery disease, chronic obstructive pulmonary disease (COPD), hypertension, and diabetes. According to the patient's , the patient started having some trouble breathing the day prior and was unable to take a big breath and was also producing more secretions. Therefore, the patient and his were worried and presented to the emergency room. However, he denies any chest pain, any abdominal pains, nausea, vomiting, diarrhea or constipation. He was found to have severe hyponatremia in the ED. ALLERGIES: 1. NYSTATIN. PAST MEDICAL HISTORY: Includes: 1. Chronic hypoxic respiratory failure due to ALS 2. Coronary artery disease. 3. Amyotrophic lateral sclerosis (ALS). 4. COPD. 5. Hypertension. 6. Chronic Carter. 7. Hypothyroidism. 8. Thoracic kyphosis. 9. Gout. 10. Diabetes. 11. Chronic constipation. 12. Anxiety. FAMILY HISTORY: Noncontributory. SOCIAL HISTORY: 90 pack year smoking history. REVIEW OF SYSTEMS: Patient does not speak due to needing mechanical ventilation 24 hours a day with an inflated cough. HOME MEDICATIONS: - clindamycin 300 mg via PEG tube twice a day - Lasix 20 mg daily - metformin 1000 mg twice a day - diclofenac 2 grams four times a day - fluorouracil cream 5% four times a day five times a week - methenamine via PEG tube 1 gram twice a day - Vaseline cream - acetaminophen 650 mg every 6 hours as needed - allopurinol 100 mg via PEG tube twice a day - Xanax 0.5 mg three times a day - vitamin C 500 mg twice a day - aspirin 81 mg daily - Lipitor 80 mg at bedtime - baclofen 10 mg at bedtime - Wellbutrin 75 mg daily - Zyrtec 10 mg daily - vitamin D 1000 units twice a day - finasteride 5 mg at bedtime - Flonase 15 mcg twice daily - folic acid 1 mg daily - formoterol inhalation four times a day - hydroxyzine 50 mg every 6 hours - Lantus 15 units every morning - ipratropium twice a day - Synthroid 75 mcg daily - magnesium oxide 400 mg daily - metoprolol 25 mg twice a day - multivitamin daily - omega 3 twice daily - Zofran 4 mg every six hours as needed PHYSICAL EXAMINATION: VITAL SIGNS: Temperature 98, pulse 90, respirations 26, blood pressure 110/59, oxygen was satting at 95% with SIMV, tidal volume of 400, respiratory rate of 14 , PEEP of 5, pressure over PEEP of 15 with 2 liters of oxygen. GENERAL: Patient is a pleasant elderly male who was on tracheostomy mechanical ventilation who was laying at roughly 30 degrees. He does not look distressed. HEENT: Normocephalic, atraumatic. Extraocular motor intact. Mucous moist. NECK: Supple. No neck lymphadenopathy. Trach tube in place. LUNGS: Clear to auscultate bilaterally. Normal I:E. No wheeze, rhonchi, or crackle. CARDIOVASCULAR: Regular rate and rhythm. Distant heart sounds due to increased AP diameter. Normal S1 and S2. ABDOMEN: Positive bowel sounds. Soft, nontender, nondistended. No peritoneal signs. PEG tube in place. EXTREMITIES: No edema, clubbing or cyanosis. However, lower extremity was cooler to touch. SKIN: Warm and dry. NEURO: Cranial nerves II through XII intact. LABORATORIES: WBC 14.4, hemoglobin 12.1, hematocrit 34.6 with a platelet count of 216, MCV of 83.4. Sodium 127, potassium 4.1, chloride 89, bicarb 31, anion gap 7, BUN 26, creatinine 0.56, GFR greater than 60, fasting glucose 175. Lactic acid has dropped from 3 to 1.7, calcium 9, magnesium 1.7, CK 51, CK-MB 3.5, Troponin less than 0.02, CRP less than 0.3, TSH 3.46, free T4 3.3, T3 35, cortisol level is pending. The patient's ABG from last night at 2:00 a.m. shows pH of 7.35, pCO2 59.2, pO2 47.8, with a base excess of 5.3. The patient's urinalysis last night showed 1+ protein, 2+ glucose, 3+ leukocyte esterase, 5 WBCs, 7 RBCs, small yeastlike cells, random osmolality was 134, random creatinine was less than 13, urine protein was elevated at 15.1, random sodium was only 23, random potassium 3.3, chloride less than 10, uric acid 9.3. Patient's blood cultures times two are pending. Methicillin-resistant Staphylococcus aureus (MRSA) screening is pending. Urine culture is pending. Respiratory panel is negative. The patient had a chest x-ray last night which shows perihilar opacities. Otherwise, there were no acute processes. Patient did also have a CT angio of the chest, which shows no evidence of pulmonary embolism, small left pleural effusion, bilateral basilar atelectasis. Tracheostomy tube in good position. Calcified hepatic and splenic granulomas. ASSESSMENT/PLAN: 66-year-old male with a past medical history of ALS needing tracheostomy placement and now mechanical ventilation 24 hours a day. Also insulin dependent diabetes, chronic obstructive pulmonary disease (COPD), hypothyroidism, and hypertension, who presented with: 1. Shortness of breath with chronic hypoxic respiratory failure due to ALS on trach and ventilation with questionable pneumonia. Patient is currently on vancomycin and Zosyn. He did have an elevated WBC which was 14.4. The patient's blood cultures are pending. Will followup. Respiratory panel has been negative. Continue patient on home ventilator settings. 2. Hyponatremia. At this point, etiology is unclear, however, patient's did say that he was given a lot of fluid with medications and also with each feeding. The patient does have hyponatremia history and also urine sodium is also reduced, which was only 23, and low urine osmolality, which indicates possible iatrogenic polydipsia/over hydration through PEG tube. Would recommend a dietary consult regarding the proper fluid intake for the patient. ADDENDUM: I, Dr. Latonya Walker, independently performed a history and physical examination and agree with the documentation. I discussed the assessment and recommendations with the resident and agree with the above documentation. SIMONA
[2016-11-10 13:33] LABS: ANION GAP 8 MEQ/L (8-16); BLOOD UREA NITROGEN 28 MG/DL (7-18); CALCIUM LEVEL 8.8 MG/DL (8.8-10.2); CARBON DIOXIDE LEVEL 27 MEQ/L (21-32); CHLORIDE LEVEL 96 MEQ/L (98-107); CREATININE FOR GFR 0.62 MG/DL (0.70-1.30); GLOMERULAR FILTRATION RATE > 60.0 (>49); GLUCOSE, FASTING 187 MG/DL (80-110); MAGNESIUM LEVEL 1.6 MG/DL (1.8-2.4); POTASSIUM SERUM 4.1 MEQ/L (3.5-5.1); SODIUM LEVEL 131 MEQ/L (136-145)
[2016-11-10 17:15] LABS: ANION GAP 5 MEQ/L (8-16); BLOOD UREA NITROGEN 29 MG/DL (7-18); CALCIUM LEVEL 8.9 MG/DL (8.8-10.2); CARBON DIOXIDE LEVEL 30 MEQ/L (21-32); CHLORIDE LEVEL 94 MEQ/L (98-107); CREATININE FOR GFR 0.64 MG/DL (0.70-1.30); GLOMERULAR FILTRATION RATE > 60.0 (>49); GLUCOSE, FASTING 137 MG/DL (80-110); MAGNESIUM LEVEL 2.2 MG/DL (1.8-2.4); POTASSIUM SERUM 4.1 MEQ/L (3.5-5.1); SODIUM LEVEL 129 MEQ/L (136-145)
[2016-11-10] MEDS: IPRATROPIUM 0.06% NASAL SPRAY 15 ML (ATROVENT) SCH ×2 (21:00→21:30)
[2016-11-10] MEDS: BACLOFEN 10 MG TAB PEG SCH (21:00)
[2016-11-10 21:29] LABS: ANION GAP 4 MEQ/L (8-16); BLOOD UREA NITROGEN 29 MG/DL (7-18); CALCIUM LEVEL 9.1 MG/DL (8.8-10.2); CARBON DIOXIDE LEVEL 31 MEQ/L (21-32); CHLORIDE LEVEL 95 MEQ/L (98-107); CREATININE FOR GFR 0.74 MG/DL (0.70-1.30); GLOMERULAR FILTRATION RATE > 60.0 (>49); GLUCOSE, FASTING 151 MG/DL (80-110); POTASSIUM SERUM 4.4 MEQ/L (3.5-5.1); SODIUM LEVEL 130 MEQ/L (136-145)
[2016-11-10] MEDS: ATORVASTATIN 20 MG TAB PEG SCH (21:31)
[2016-11-10] MEDS: FINASTERIDE 5 MG TAB PEG SCH (21:32)
--- NOTE | 2016-11-10 21:52 | ECGEPIP ---
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 Electronically Signed On 11-10-2016 21:51:43 EDT by Edvin Aguilera
[2016-11-11] VITALS (22 sets, daily range): BP systolic 81–164; BP diastolic 52–83; O2SAT 95
[2016-11-11] MEDS: PIPERACILLIN/TAZOBACTAM SOD 3.375 GM in D5W MINI-BAG PLUS 50 ML IV SCH ×3 (00:19→12:29)
[2016-11-11] MEDS: METOCLOPRAMIDE INJ 10MG/2ML VIAL (J2765) IV SCH ×4 (00:20→18:10)
[2016-11-11] MEDS: HumaLOG INSULIN (NovoLOG) PER UNIT SC SCH ×5 (00:20→23:59)
[2016-11-11] MEDS: hydrOXYzine 50 MG TAB PEG SCH ×5 (00:20→23:59)
[2016-11-11] MEDS: ALPRAZolam 0.5 MG TAB PEG SCH ×4 (01:04→20:39)
[2016-11-11] MEDS: IPRATROPIUM 0.5MG/ALBUTEROL 2.5MG INH SOL UD 3ML (DUONEB)(J7620) NEB SCH ×5 (01:45→19:29)
[2016-11-11 01:52] LABS: ANION GAP 5 MEQ/L (8-16); BLOOD UREA NITROGEN 27 MG/DL (7-18); CALCIUM LEVEL 9.3 MG/DL (8.8-10.2); CARBON DIOXIDE LEVEL 31 MEQ/L (21-32); CHLORIDE LEVEL 95 MEQ/L (98-107); CREATININE FOR GFR 0.71 MG/DL (0.70-1.30); GLOMERULAR FILTRATION RATE > 60.0 (>49); GLUCOSE, FASTING 133 MG/DL (80-110); MAGNESIUM LEVEL 1.9 MG/DL (1.8-2.4); POTASSIUM SERUM 4.2 MEQ/L (3.5-5.1); SODIUM LEVEL 131 MEQ/L (136-145)
[2016-11-11 05:50] LABS: MEAN CORPUSCULAR HGB CONC 34.2 g/dl (32.0-36.5); RED CELL DISTRIBUTION WIDTH 14.8 % (11.5-14.5); WHITE BLOOD COUNT 8.3 K/mm3 (4.0-10.0)
[2016-11-11] MEDS: LEVOTHYROXINE 75MCG TABLET (0.075MG) PEG SCH (05:54)
[2016-11-11 06:03] LABS: ALBUMIN 2.8 GM/DL (3.2-5.2); ALBUMIN/GLOBULIN RATIO 0.85 (1.00-1.93); ALKALINE PHOSPHATASE 122 U/L (45-117); ALT/SGPT 29 U/L (12-78); ANION GAP 5 MEQ/L (8-16); AST/SGOT 13 U/L (15-37); BILIRUBIN,TOTAL 0.3 MG/DL (0.2-1.0); BLOOD UREA NITROGEN 29 MG/DL (7-18); CALCIUM LEVEL 9.2 MG/DL (8.8-10.2); CARBON DIOXIDE LEVEL 31 MEQ/L (21-32); CHLORIDE LEVEL 97 MEQ/L (98-107); CREATININE FOR GFR 0.72 MG/DL (0.70-1.30); GLOMERULAR FILTRATION RATE > 60.0 (>49); GLUCOSE, FASTING 115 MG/DL (80-110); MAGNESIUM LEVEL 1.9 MG/DL (1.8-2.4); POTASSIUM SERUM 4.3 MEQ/L (3.5-5.1); SODIUM LEVEL 133 MEQ/L (136-145); TOTAL PROTEIN 6.1 GM/DL (6.4-8.2)
[2016-11-11] MEDS ORDERED: D5W 500 ML IV SCH (08:00)
[2016-11-11] MEDS: FORMOTEROL FUMARATE 20 MCG/2 ML INHALATION SOLUTION (PERFOROMIST) INH SCH ×2 (08:14→19:45)
[2016-11-11] MEDS: SENOKOT S TAB PO SCH ×2 (09:00→20:38)
[2016-11-11] MEDS: FLUTICASONE PROP 0.05% NASAL SPRAY 16 GM (FLONASE) SCH ×2 (09:00→20:40)
[2016-11-11] MEDS: METOPROLOL TART 25 MG TABLET PEG SCH ×2 (09:00→20:39)
--- NOTE | 2016-11-11 09:17 | PHACANCOPD ---
PHARMACY VANCOMYCIN DOSING Pt Demographics Demographics Patient Age:66 , Weight:71.800 , Gender: male Adjusted Body Weight Date: 11/10/16, Adjusted Body Weight: [71.8] Kg actual weight Events Past 24 Hours Events Past 24 Hours: NO: Dialysis, Diuretic Therapy, Change in CrCl, Fever, Elevation in WBC, Pending Diagnostics, Pending Procedures, Other Vancomycin Vancomycin indication: ventilator acquired pneumonia Vancomycin Target Ranges: 15-20 mcg/ml Vancomycin Load Y/N: Yes Load Dose Date Time Vancomycin Load Dose: 2 gm Date: 11/10 Time: 0800 Vancomycin Dose Date: 11/10/16. Current Vancomycin Dose: [1 gm iv q12h] Intermittent Dosing?: No Labs Labs Item Value Date Time White Blood Count 14.4 K/mm3 H 11/10/16 0149 White Blood Count 8.3 K/mm3 11/11/16 0517 Vancomycin Level Trough 11.2 UG/ML 11/11/16 0820 Creatinine 0.74 MG/DL 11/10/16 2100 Creatinine 0.71 MG/DL 11/11/16 0120 Creatinine 0.72 MG/DL 11/11/16 0517 Micro Microbiology 11/10/16 Blood Culture - Preliminary, Resulted No growth after 24 hours . All specim... 11/10/16 Blood Culture - Preliminary, Resulted No growth after 24 hours . All specim... 11/10/16 Gram Stain - Final, Resulted 11/10/16 Sputum Culture, Resulted Pending 11/10/16 MRSA Screen, Received Pending 11/10/16 Respiratory Virus Panel (PCR) (IRMA) - Final, Complete 11/10/16 Urine Culture - Final, Complete Creatinine Clearance Date:11/10/16. Creatinine Clearance: [115].calculated Pending Labs vanco trough due 11/12 @0800 Assessment and Plan Maintaining Current Dose?: Yes Reason for dose change: No Dose Change Pharmacist Note Pharmacist Note Date: 11/11/16. Pharmacist note: Trough of 11.2 was drawn after 2 doses (11/11 @ 0800). Trough is expected to increase another 30% once steady state is achieved. Another trough is scheduled to be drawn 11/12 @ 0800. Cultures are still pending. Continue current dosing and adjust therapy as needed. Date: 11/10/16. Pharmacist note:66 YOM admitted d/t ventilator acquired pneumonia: regimen of pip/tazo 3.375 gm iv [id number] and Vancomycin per pharmacy consult begun-Vancomycin 2 GM loading dose ordered for 0800,then to continue at 1 gm iv [id number]: first trough will be drawn 11/11@0800;SCR=0.62 : calculated CRCL= 115: will continue to follow levels and labs [facility] Nov 11, 2016 09:17
[2016-11-11] MEDS: VANCOMYCIN HCL 1,000 MG, VIAL MATE ADAPTER 1 EACH in D5W 250 ML IV SCH (09:47)
[2016-11-11] MEDS: PANTOPRAZOLE 40MG INJ (PROTONIX) (C9113) IV SCH (09:47)
[2016-11-11] MEDS: CHLORHEXIDINE GLUCONATE 0.12 % 15ML UDC (PERIDEX ORAL RINSE) MT SCH ×2 (09:48→20:41)
[2016-11-11] MEDS: MAGNESIUM OXIDE 400 MG TAB (MAG-OX) PO SCH (09:49)
[2016-11-11] MEDS: LEVEMIR (INSULIN DETEMIR) 1 UNITS/0.01ML SC SCH (09:49)
[2016-11-11] MEDS: OMEGA-3 1050MG CAPSULE PO SCH ×2 (09:49→20:38)
[2016-11-11 09:50] LABS: ANION GAP 8 MEQ/L (8-16); BLOOD UREA NITROGEN 28 MG/DL (7-18); CALCIUM LEVEL 9.3 MG/DL (8.8-10.2); CARBON DIOXIDE LEVEL 31 MEQ/L (21-32); CHLORIDE LEVEL 96 MEQ/L (98-107); CREATININE FOR GFR 0.74 MG/DL (0.70-1.30); GLOMERULAR FILTRATION RATE > 60.0 (>49); GLUCOSE, FASTING 137 MG/DL (80-110); POTASSIUM SERUM 4.2 MEQ/L (3.5-5.1); SODIUM LEVEL 135 MEQ/L (136-145)
[2016-11-11] MEDS: ASCORBIC ACID 500 MG TAB PEG SCH ×2 (09:50→20:39)
[2016-11-11] MEDS: buPROPion 75 MG TAB PEG SCH (09:50)
[2016-11-11] MEDS: CETIRIZINE (ZyrTEC) 10 MG TAB PEG SCH (09:50)
[2016-11-11] MEDS: MULTIVITAMINS CHILDREN'S CHEWABLE TABLET XX SCH (09:50)
[2016-11-11] MEDS: VITAMIN D 1,000 INTERNATIONAL UNITS TABLET PEG SCH ×2 (09:50→20:37)
[2016-11-11] MEDS: ALLOPURINOL 100 MG TAB PEG SCH ×2 (09:50→20:38)
[2016-11-11] MEDS: LACTOBACILLUS ACIDOPHILUS CAP (BACID) PO SCH ×3 (09:50→20:38)
[2016-11-11] MEDS: FOLIC ACID 1 MG TAB PEG SCH (09:50)
[2016-11-11] MEDS: ASPIRIN 81 MG CHEW TABLET PEG SCH (09:50)
[2016-11-11] MEDS: HEPARIN SOD (PORCINE) 5000 UNITS/ML VIAL SC SCH ×2 (10:13→20:39)
[2016-11-11] MEDS ORDERED: D5W 500 ML IV ONE (10:53)
--- NOTE | 2016-11-11 14:59 | IPNPDOC ---
Subjective Date Seen The patient was seen on 11/11/16. Subjective Chief Complaint/HPI Patient seen and examined at the bedside. Offers no acute complaints at this time. Objective Physical Examination General Exam: Positive: Alert, Cooperative, No Acute Distress ENT Exam: Positive: Atraumatic, Mucous membr. moist/pink, Other ENT (+ Tracheostomy tube connected to ventilator) Neck Exam: Negative: JVD Chest Exam: Positive: Diminished, Negative: Rales Heart Exam: Positive: Rate Normal, Normal S1, Normal S2 Telemetry: Positive: Sinus Abdomen Exam: Positive: Soft, Other (+PEG tube), Negative: Tenderness Extremity Exam: Negative: Tenderness, Swelling Assessment /Plan Plan/VTE VTE Prophylaxis Ordered?: Yes Plan/Urinary Catheter Reason for insertion/continuin: Acute obstruct/retention Plan Ventilator-associated pneumonia CXR, CTA Chest noted (MRSA) screening, blood cultures unrevealing Shortness of Breath improved, patient has remained afebrile, WBC normalized Respiratory panel negative IV Abx transitioned to Levaquin to be given via PEG tube Appreciate Pulmonary input We will transfer the patient to Med/Surg floor Hyponatremia, resolved Likely 2/2 increased water intake via PEG tube Serum Sodium increased 11 in the first 24 hours Patient with no neurological manifestations during this time s/p IVF Hydration Serum Sodium has trended upwards appropriately Appreciate Nephrology input Chronic respiratory failure secondary to ALS s/p Trach and Peg Patient on portable table-top ventilator Continue current settings--appreciate pulmo input Patient was scheduled to follow up with Dr. Porter as an o/p to have trach exchanged Will consult him here to see whether he would like this done here Hypothyroidism Continue Synthroid Diabetes Cont Levemir, ISS Protein calorie malnutrition Continue tube feeding Anxiety Continue current medication regimen History of coronary artery disease. Continue aspirin and statin Gastroparesis Continue Reglan Depression. Continue current medication regimen Benign prostatic hypertrophy (BPH) Cont Proscar Deep venous thrombosis (DVT) prophylaxis. Heparin subcutaneous. Dispo--Patient improving clinically, anticipate D/C in next 24-48 hrs VS, I&O, 24H, Fishbone Vital Signs/I&O Vital Signs Date Time Temp Pulse Resp B/P (MAP) Pulse Ox O2 Delivery O2 Flow Rate FiO2 11/11/16 14:00 106 19 136/65 (88) 95 Ventilator 2.0 11/11/16 12:00 97.6 I&O- Last 24 Hours up to 6 AM 7/13/17 06:00 Intake Total 4380 ml Output Total 6550 ml Balance -2170 ml Laboratory Data 24H LABS Laboratory Tests 2 11/10/16 16:39: Anion Gap 5L, Glomerular Filtration Rate > 60.0, Blood Urea Nitrogen 29H, Creatinine 0.64L, Sodium Level 129L, Potassium Level 4.1, Chloride Level 94L, Carbon Dioxide Level 30, Calcium Level 8.9, Magnesium Level 2.2 11/10/16 17:58: Bedside Glucose (Misc Panel) 169H 11/10/16 21:00: Anion Gap 4L, Glomerular Filtration Rate > 60.0, Blood Urea Nitrogen 29H, Creatinine 0.74, Sodium Level 130L, Potassium Level 4.4, Chloride Level 95L, Carbon Dioxide Level 31, Calcium Level 9.1, Magnesium Level 2.0 11/10/16 23:58: Bedside Glucose (Misc Panel) 187H 11/11/16 01:20: Anion Gap 5L, Glomerular Filtration Rate > 60.0, Blood Urea Nitrogen 27H, Creatinine 0.71, Sodium Level 131L, Potassium Level 4.2, Chloride Level 95L, Carbon Dioxide Level 31, Calcium Level 9.3, Magnesium Level 1.9 11/11/16 05:17: Anion Gap 5L, Glomerular Filtration Rate > 60.0, Blood Urea Nitrogen 29H, Creatinine 0.72, Sodium Level 133L, Potassium Level 4.3, Chloride Level 97L, Carbon Dioxide Level 31, Calcium Level 9.2, Magnesium Level 1.9, Aspartate Amino Transf (AST/SGOT) 13L, Alanine Aminotransferase (ALT/SGPT) 29, Alkaline Phosphatase 122H, Total Bilirubin 0.3, Total Protein 6.1L, Albumin 2.8L, C- Reactive Protein, Quantitative < 0.30, Albumin/Globulin Ratio 0.85L 11/11/16 05:46: Bedside Glucose (Misc Panel) 119H 11/11/16 08:20: Anion Gap 8, Glomerular Filtration Rate > 60.0, Blood Urea Nitrogen 28H, Creatinine 0.74, Sodium Level 135L, Potassium Level 4.2, Chloride Level 96L, Carbon Dioxide Level 31, Calcium Level 9.3, Magnesium Level 2.0, Vancomycin Level Trough 11.2 11/11/16 09:35: Bedside Glucose (Misc Panel) 172H 11/11/16 12:21: Bedside Glucose (Misc Panel) 224H CBC/BMP Laboratory Tests 11/10/16 16:39 Calcium Level 8.9 11/10/16 21:00 Calcium Level 9.1 11/11/16 01:20 Calcium Level 9.3 11/11/16 05:17 Calcium Level 9.2, Red Blood Count 3.66 L, Mean Corpuscular Volume 85.0, Mean Corpuscular Hemoglobin 29.0, Mean Corpuscular Hemoglobin Concent 34.2, Red Cell Distribution Width 14.8 H, Aspartate Amino Transf (AST/SGOT) 13 L, Alanine Aminotransferase (ALT/SGPT) 29, Alkaline Phosphatase 122 H, Total Bilirubin 0.3 , Total Protein 6.1 L, Albumin 2.8 L 11/11/16 08:20 Calcium Level 9.3 Microbiology Microbiology 11/10/16 Blood Culture - Preliminary, Resulted No growth after 24 hours . All specim... 11/10/16 Blood Culture - Preliminary, Resulted No growth after 24 hours . All specim... 11/10/16 Gram Stain - Final, Resulted 11/10/16 Sputum Culture, Resulted Pending 11/10/16 MRSA Screen, Received Pending 11/10/16 Respiratory Virus Panel (PCR) (IRMA) - Final, Complete 11/10/16 Urine Culture - Final, Complete DERIK RIZO MD Nov 11, 2016 14:59
[2016-11-11] MEDS: ACETAMINOPHEN 325 MG TAB PEG PRN ×2 (15:46→20:45)
[2016-11-11] MEDS ORDERED: D5W 1,000 ML IV SCH (17:00)
[2016-11-11] MEDS: ATORVASTATIN 20 MG TAB PEG SCH (20:38)
[2016-11-11] MEDS: BACLOFEN 10 MG TAB PEG SCH (20:38)
[2016-11-11] MEDS: FINASTERIDE 5 MG TAB PEG SCH (20:38)
[2016-11-11] MEDS: IPRATROPIUM 0.06% NASAL SPRAY 15 ML (ATROVENT) SCH (21:00)
--- NOTE | 2016-11-11 21:50 | CR ---
DATE OF CONSULTATION: 11/11/2016 CONSULTATION FOR: Saud Gomez MD REASON FOR CONSULTATION: Rapid correction of hyponatremia. HISTORY OF PRESENT ILLNESS: Mr. Major is a 66-year-old gentleman who is under care of [facility]. He is admitted to [facility] due to shortness of breath and generalized weakness. He has known history of amyotrophic lateral sclerosis (ALS), history of a tracheostomy due to respiratory failure, and percutaneous endoscopic gastrostomy (PEG) tube placement for feeding. He has been receiving tube feeding at home. He was brought to the emergency room yesterday and was found to have a sodium level of 120. The patient is currently in intensive care unit. Overnight his sodium level corrected to 133. A nephrology consultation was requested. Yesterday I discussed the case with Dr. Gomez over the phone and recommended to increase his intravenous (IV) fluid of D5W to 150 per hour due to excessive amount of urine output. In any event, his sodium had already corrected even at that time to 131. I have reviewed with the patient's family and his dietitian at [facility] about his tube feeds and nutritional needs. PAST MEDICAL HISTORY: Significant for: 1. Coronary artery disease. History of coronary artery bypass graft (CABG) and angioplasty with stents. 2. Chronic respiratory failure with tracheostomy tube secondary to ALS. 3. Progressive ALS. 4. COPD. 5. Hypertension. 6. Hypothyroidism. 7. History of gout. 8. History of diabetes. 9. History of anxiety. 10. History of urinary retention with chronic Carter catheter placement. PAST SURGICAL HISTORY: Significant for: 1. CABG in 2008. 2. History of cardiac stents. 3. Tracheostomy and PEG tube placement. 4. He also has history of appendectomy and colonoscopy. FAMILY HISTORY: Unremarkable and noncontributory. PERSONAL AND SOCIAL HISTORY: The patient has history of heavy smoking in the past. There is no history of alcohol or drug use. REVIEW OF SYSTEMS: The patient himself is not able to provide much information. His family is present. Apparently he is dependent on the family for his total care. He has been ventilator dependent and receives his nutrition and water through the PEG tube. He is currently being treated for possible ventilator-associated pneumonia. There is no reported fever or chills. There is no reported diarrhea or vomiting. There is no peripheral edema reported. There is no chest pain or palpitations. He does have history of hypothyroidism, diabetes. No history of chronic kidney disease. Otherwise review of system is unremarkable. PHYSICAL EXAMINATION: Chronically ill-looking gentleman lying in the bed. Was connected to the ventilator via tracheostomy. Temperature is 97.6 degrees Fahrenheit, heart rate 100 per minute, respiratory rate 20 per minute, blood pressure 120/64 mm of mercury, and oxygen saturation 92%. Head is atraumatic. Neck is supple, and there is no jugular venous distention (JVD) or thyroid enlargement. Tracheostomy is in place. Ears, nose, and throat are unremarkable. Heart sounds are tachycardiac. Lungs with moderate bilateral air entry and diminished breath sounds at bases. Abdomen soft and nontender. The PEG tube is in place without any drainage or leakage. Extremities have no cyanosis or clubbing. Neurologically, he has contractures of lower extremities. He is awake and responds to verbal stimulus appropriately. LABORATORY DATA: On admission WBC count was 14.4, hemoglobin 12.1, and hematocrit 34.6. Today WBC count 8.3, hemoglobin 10.6, and hematocrit 31. Blood gas on admission showed a pH of 7.35, pCO2 of 59, pO2 of 47 and bicarbonate 29. Sodium level was 120 and potassium 4.3 on admission. A lactic acid level was 3.0, BUN 29, and creatinine 6.2. At 07:06 on November 10 his sodium was up to 127, which it went up to 130 and 9:50 a.m., and at 12:55 p.m. it was 131. He did come down to 129 at 1639 and was 130 at 2100. This morning sodium up to 133 at 5:17 and 135 at 08:20 a.m. Potassium is 4.2, chloride 96, CO2 of 31, BUN 28, and creatinine 0.74. PROBLEMS: 1. Hyponatremia with rapid correction. The patient did have a urine output of 5.47 liters until midnight from admission. It was replaced full with 3.45 liters of D5W. Most likely his hyponatremia is related to tube feeding and excessive amount of fluid given by the tube. I have discussed with the family and the patient's interdisciplinary professor. I recommend to cut down the total amount of fluid, as it is likely contributing to his hyponatremia. Rapid correction was due to excessive amount of urine output. Now his sodium level is up to 135. The patient does not seem to have any neurological problem at this point. We will continue with D5W and increase the rate to 100 mL per hour. Will try to prevent rapid and over-correction of his sodium. 2. Nutrition. The patient has been on 2400 calories per day of tube feeding. I have discussed with his dietitian at [facility]. I recommend 1800-calorie diet with fluid restriction of about 1800 per day to prevent recurrent hyponatremia. 3. Pneumonia. The patient remains on vancomycin and Zosyn at this point. He is afebrile and hemodynamically stable. MEDICATIONS: His medications include: - formoterol 20 mcg twice a day - IV fluid D5W at 50 mL per hour - Lipitor 40 mg daily - baclofen 10 mg at bedtime - Proscar 5 mg at bedtime - vancomycin 1000 mg every 12 hours - allopurinol 100 mg twice a day - Xanax 0.5 mg three times a day - vitamin C 500 mg twice a day - aspirin 81 mg daily - Wellbutrin 75 mg daily - Zyrtec 10 mg daily - vitamin D 1000 units twice a day - Flonase 1 spray twice a day - folic acid 1 mg daily - Levemir insulin 15 units at morning - Atrovent inhaler two sprays twice a day - magnesium oxide 400 mg daily - metoprolol 25 mg twice a day - multivitamin one tablet daily - fish oil twice a day - Senokot one tablet twice a day - heparin 5000 units every 12 hours - Bacid one tablet three times a day - Protonix 40 mg every 24 hours - DuoNeb every 6 hours - Atarax 50 mg every 6 hours - Synthroid 75 mcg daily - Humalog insulin per sliding scale - Zosyn 3.375 grams every 6 hours - Tylenol 650 mg every 6 hours as needed ALLERGIES: The patient has allergy to NIACIN. I thank you for involving me in the care of Mr. Major. I will follow him along with you.
[2016-11-12] VITALS (9 sets, daily range): BP systolic 83–148; BP diastolic 49–77; O2SAT 99
[2016-11-12] MEDS: IPRATROPIUM 0.5MG/ALBUTEROL 2.5MG INH SOL UD 3ML (DUONEB)(J7620) NEB SCH ×4 (01:14→20:00)
[2016-11-12] MEDS: LEVOTHYROXINE 75MCG TABLET (0.075MG) PEG SCH (05:19)
[2016-11-12] MEDS: LevoFLOXacin 500 MG TABLET PEG SCH (05:19)
[2016-11-12] MEDS: hydrOXYzine 50 MG TAB PEG SCH ×3 (05:19→17:46)
[2016-11-12 05:22] LABS: MEAN CORPUSCULAR HEMOGLOBIN 29.2 pg (27.0-33.0); MEAN CORPUSCULAR HGB CONC 33.4 g/dl (32.0-36.5); MEAN CORPUSCULAR VOLUME 87.4 fl (80.0-96.0); WHITE BLOOD COUNT 6.4 K/mm3 (4.0-10.0)
[2016-11-12] MEDS: METOCLOPRAMIDE INJ 10MG/2ML VIAL (J2765) IV SCH ×4 (05:22→17:47)
[2016-11-12] MEDS: HumaLOG INSULIN (NovoLOG) PER UNIT SC SCH ×3 (05:26→17:47)
[2016-11-12 05:42] LABS: ALBUMIN 2.9 GM/DL (3.2-5.2); ALBUMIN/GLOBULIN RATIO 0.88 (1.00-1.93); ALKALINE PHOSPHATASE 114 U/L (45-117); ALT/SGPT 26 U/L (12-78); ANION GAP 7 MEQ/L (8-16); AST/SGOT 11 U/L (15-37); BILIRUBIN,TOTAL 0.2 MG/DL (0.2-1.0); BLOOD UREA NITROGEN 27 MG/DL (7-18); CALCIUM LEVEL 9.4 MG/DL (8.8-10.2); CARBON DIOXIDE LEVEL 32 MEQ/L (21-32); CHLORIDE LEVEL 95 MEQ/L (98-107); CREATININE FOR GFR 0.83 MG/DL (0.70-1.30); GLOMERULAR FILTRATION RATE > 60.0 (>49); GLUCOSE, FASTING 178 MG/DL (80-110); MAGNESIUM LEVEL 2.1 MG/DL (1.8-2.4); POTASSIUM SERUM 4.2 MEQ/L (3.5-5.1); SODIUM LEVEL 134 MEQ/L (136-145); TOTAL PROTEIN 6.2 GM/DL (6.4-8.2)
[2016-11-12] MEDS: FORMOTEROL FUMARATE 20 MCG/2 ML INHALATION SOLUTION (PERFOROMIST) INH SCH ×2 (08:11→20:52)
[2016-11-12] MEDS: MAGNESIUM OXIDE 400 MG TAB (MAG-OX) PO SCH (09:00)
[2016-11-12] MEDS: IPRATROPIUM 0.06% NASAL SPRAY 15 ML (ATROVENT) SCH ×3 (09:00→21:33)
[2016-11-12] MEDS: PANTOPRAZOLE 40MG INJ (PROTONIX) (C9113) IV SCH (09:39)
[2016-11-12] MEDS: CHLORHEXIDINE GLUCONATE 0.12 % 15ML UDC (PERIDEX ORAL RINSE) MT SCH ×2 (09:40→21:49)
[2016-11-12] MEDS: FLUTICASONE PROP 0.05% NASAL SPRAY 16 GM (FLONASE) SCH ×2 (09:40→21:33)
[2016-11-12] MEDS: HEPARIN SOD (PORCINE) 5000 UNITS/ML VIAL SC SCH ×2 (09:40→21:31)
[2016-11-12] MEDS: buPROPion 75 MG TAB PEG SCH (09:41)
[2016-11-12] MEDS: SENOKOT S TAB PO SCH ×2 (09:41→21:32)
[2016-11-12] MEDS: MULTIVITAMINS CHILDREN'S CHEWABLE TABLET XX SCH (09:41)
[2016-11-12] MEDS: ALLOPURINOL 100 MG TAB PEG SCH ×2 (09:41→21:32)
[2016-11-12] MEDS: OMEGA-3 1050MG CAPSULE PO SCH ×2 (09:41→21:32)
[2016-11-12] MEDS: ALPRAZolam 0.5 MG TAB PEG SCH ×3 (09:41→21:32)
[2016-11-12] MEDS: FOLIC ACID 1 MG TAB PEG SCH (09:41)
[2016-11-12] MEDS: ASPIRIN 81 MG CHEW TABLET PEG SCH (09:41)
[2016-11-12] MEDS: VITAMIN D 1,000 INTERNATIONAL UNITS TABLET PEG SCH ×2 (09:41→21:32)
[2016-11-12] MEDS: CETIRIZINE (ZyrTEC) 10 MG TAB PEG SCH (09:41)
[2016-11-12] MEDS: LACTOBACILLUS ACIDOPHILUS CAP (BACID) PO SCH ×3 (09:41→21:32)
[2016-11-12] MEDS: ASCORBIC ACID 500 MG TAB PEG SCH ×2 (09:42→21:32)
[2016-11-12] MEDS: LEVEMIR (INSULIN DETEMIR) 1 UNITS/0.01ML SC SCH (09:43)
--- NOTE | 2016-11-12 10:21 | IPNPDOC ---
Subjective Date Seen The patient was seen on 11/12/16. Subjective Chief Complaint/HPI Patient seen and examined at the bedside. Denies any acute overnight complaints. Objective Physical Examination General Exam: Positive: Alert, Cooperative, No Acute Distress ENT Exam: Positive: Atraumatic, Mucous membr. moist/pink, Other ENT (+ Tracheostomy tube connected to table top ventilator) Neck Exam: Negative: JVD Chest Exam: Positive: Diminished, Negative: Rales Heart Exam: Positive: Rate Normal, Normal S1, Normal S2 Telemetry: Positive: Sinus Abdomen Exam: Positive: Soft, Other (+PEG tube), Negative: Tenderness Extremity Exam: Negative: Tenderness, Swelling Assessment /Plan Plan/VTE VTE Prophylaxis Ordered?: Yes Plan/Urinary Catheter Reason for insertion/continuin: Acute obstruct/retention Plan Ventilator-associated pneumonia CXR, CTA Chest noted Blood cultures unrevealing Shortness of Breath improved, patient has remained afebrile, WBC normalized Respiratory panel negative IV Abx transitioned to Levaquin to be given via PEG tube Appreciate Pulmonary input Respiratory status back to baseline as per patient, who is at bedside Hyponatremia, resolved Likely 2/2 increased water intake at home via PEG tube--/family educated on fluid restriction Serum Sodium increased 11 in the first 24 hours, and 14 over 48+ hours Patient with no neurological manifestations during this time Serum Sodium has trended upwards appropriately Appreciate Nephrology input Chronic respiratory failure secondary to ALS s/p Trach and Peg Patient on portable table-top ventilator Continue current settings--appreciate pulmo input Patient was scheduled to follow up with Dr. Porter as an o/p to have trach exchanged--he has been consulted to exchange the trach cuff here, and will do so today Hypothyroidism Continue Synthroid Diabetes Cont Levemir, ISS Protein calorie malnutrition Continue tube feeding Anxiety Continue current medication regimen History of coronary artery disease. Continue aspirin and statin Gastroparesis Continue Reglan Depression. Continue current medication regimen Benign prostatic hypertrophy (BPH) Cont Proscar Deep venous thrombosis (DVT) prophylaxis. Heparin subcutaneous. Dispo--Patient has improved clinically, Trach Cuff to be exchanged today, anticipate D/C in the AM. VS, I&O, 24H, Fishbone Vital Signs/I&O Vital Signs Date Time Temp Pulse Resp B/P (MAP) Pulse Ox O2 Delivery O2 Flow Rate FiO2 11/12/16 06:00 Ventilator 4.0 11/12/16 04:00 96.8 76 20 121/63 (82 98 I&O- Last 24 Hours up to 6 AM 11/12/16 05:59 Intake Total 3220 ml Output Total 2450 ml Balance 770 ml Laboratory Data 24H LABS Laboratory Tests 2 11/11/16 12:21: Bedside Glucose (Misc Panel) 224H 11/11/16 18:02: Bedside Glucose (Misc Panel) 135H 11/11/16 23:56: Bedside Glucose (Misc Panel) 181H 11/12/16 05:05: Anion Gap 7L, Glomerular Filtration Rate > 60.0, Blood Urea Nitrogen 27H, Creatinine 0.83, Sodium Level 134L, Potassium Level 4.2, Chloride Level 95L, Carbon Dioxide Level 32, Calcium Level 9.4, Aspartate Amino Transf (AST/SGOT) 11L, Alanine Aminotransferase (ALT/SGPT) 26, Alkaline Phosphatase 114, Total Bilirubin 0.2, Total Protein 6.2L, Albumin 2.9L, Magnesium Level 2.1, Albumin/ Globulin Ratio 0.88L 11/12/16 05:24: Bedside Glucose (Misc Panel) 180H CBC/BMP Laboratory Tests 11/12/16 05:05 Red Blood Count 3.57 L, Mean Corpuscular Volume 87.4, Mean Corpuscular Hemoglobin 29.2, Mean Corpuscular Hemoglobin Concent 33.4, Red Cell Distribution Width 15.0 H, Calcium Level 9.4, Aspartate Amino Transf (AST/SGOT) 11 L, Alanine Aminotransferase (ALT/SGPT) 26, Alkaline Phosphatase 114, Total Bilirubin 0.2, Total Protein 6.2 L, Albumin 2.9 L Microbiology Microbiology 11/10/16 Blood Culture - Preliminary, Resulted No Growth after 48 hours. All Specime... 11/10/16 Blood Culture - Preliminary, Resulted No Growth after 48 hours. All Specime... 11/10/16 Gram Stain - Final, Resulted 11/10/16 Sputum Culture, Resulted Pending 11/10/16 MRSA Screen - Final, Complete Staph.aureus Methicillin Resis 11/10/16 Respiratory Virus Panel (PCR) ([facility]) - Final, Complete 11/10/16 Urine Culture - Final, Complete DERIK RIZO MD Nov 12, 2016 10:21
[2016-11-12] MEDS: METOPROLOL TART 25 MG TABLET PEG SCH ×2 (12:23→21:32)
[2016-11-12] MEDS ORDERED: SLF 3 ML SYR IV PRN (16:00)
[2016-11-12] MEDS ORDERED: ACETAMINOPHEN 325 MG/10.15 ML UDC PEG PRN (16:00)
--- NOTE | 2016-11-12 21:04 | IPN ---
DATE: 11/12/2016 Mr. Major is seen this morning on his bedside. He remains on the ventilator via tracheostomy. He is receiving tube feeding through his percutaneous endoscopic gastrostomy (PEG) tube. His intravenous (IV) fluid has already been stopped this morning. The patient has no fever or chills. He denies any other complaints at present. PHYSICAL EXAMINATION: Temperature 96.8 degrees Fahrenheit, heart rate 76 per minute and respiratory rate 20 per minute. Blood pressure 120/63 mmHg and oxygen saturation 98% on a ventilator. Intake and output records from yesterday showed total intake 3420 and output 3475 mL. His head is atraumatic. Neck is supple and without jugular venous distention (JVD) or thyroid enlargement. Tracheostomy is in place. Heart: Sounds are regular. Lungs: Have good bilateral air entry. Abdomen: Soft and nontender and a PEG tube is in place. Extremities: Have no cyanosis or clubbing. Neurologically: He responds and is at his baseline mentation. Today's labs show WBC count 6.4, hemoglobin 10.4 and hematocrit 31.2. Platelets 145. Sodium 134 and potassium 4.2. BUN 27 and creatinine 0.83. Glucose 178 and calcium 9.4. PROBLEM #1: Hyponatremia. Sodium level has improved and stable. He does not have any neurological symptoms other than his chronic baseline problem related to ALS. At this point, IV fluid has already been stopped. He is now on tube feeding along with free water. Electrolytes will be checked again tomorrow morning. PROBLEM #2: Nutrition. The patient is receiving about 1775 calories via tube feeding which is appropriate. I feel that he was receiving too much fluid and too much of nutrition at home. I have discussed with his dietitian at [facility], and there will review his dietary needs once he is discharged. At present, we will continue with free water about 100 mL every 6 hours along with the tube feeds.
[2016-11-12] MEDS: ATORVASTATIN 20 MG TAB PEG SCH (21:32)
[2016-11-12] MEDS: FINASTERIDE 5 MG TAB PEG SCH (21:32)
[2016-11-12] MEDS: SLF 3 ML SYR IV SCH (21:33)
[2016-11-12] MEDS: BACLOFEN 10 MG TAB PEG SCH (21:33)
[2016-11-13] VITALS: BP 93/51
[2016-11-13] MEDS: hydrOXYzine 50 MG TAB PEG SCH ×3 (00:31→12:55)
[2016-11-13] MEDS: HumaLOG INSULIN (NovoLOG) PER UNIT SC SCH ×3 (00:32→12:55)
[2016-11-13] MEDS: METOCLOPRAMIDE INJ 10MG/2ML VIAL (J2765) IV SCH ×3 (00:32→12:55)
[2016-11-13] MEDS: IPRATROPIUM 0.5MG/ALBUTEROL 2.5MG INH SOL UD 3ML (DUONEB)(J7620) NEB SCH ×3 (01:25→14:43)
[2016-11-13 04:00] VITALS: BP 115/68
[2016-11-13 05:15] LABS: MEAN CORPUSCULAR HEMOGLOBIN 29.2 pg (27.0-33.0); MEAN CORPUSCULAR HGB CONC 33.2 g/dl (32.0-36.5); MEAN CORPUSCULAR VOLUME 87.9 fl (80.0-96.0); RED CELL DISTRIBUTION WIDTH 15.1 % (11.5-14.5); WHITE BLOOD COUNT 7.7 K/mm3 (4.0-10.0)
[2016-11-13 05:25] LABS: ALBUMIN 2.8 GM/DL (3.2-5.2); ALBUMIN/GLOBULIN RATIO 0.82 (1.00-1.93); ALKALINE PHOSPHATASE 91 U/L (45-117); ALT/SGPT 23 U/L (12-78); ANION GAP 3 MEQ/L (8-16); AST/SGOT 12 U/L (15-37); BILIRUBIN,TOTAL 0.3 MG/DL (0.2-1.0); BLOOD UREA NITROGEN 27 MG/DL (7-18); CALCIUM LEVEL 9.8 MG/DL (8.8-10.2); CARBON DIOXIDE LEVEL 33 MEQ/L (21-32); CHLORIDE LEVEL 102 MEQ/L (98-107); CREATININE FOR GFR 0.82 MG/DL (0.70-1.30); GLOMERULAR FILTRATION RATE > 60.0 (>49); GLUCOSE, FASTING 87 MG/DL (80-110); MAGNESIUM LEVEL 2.2 MG/DL (1.8-2.4); POTASSIUM SERUM 4.4 MEQ/L (3.5-5.1); SODIUM LEVEL 138 MEQ/L (136-145); TOTAL PROTEIN 6.2 GM/DL (6.4-8.2)
[2016-11-13] MEDS: LevoFLOXacin 500 MG TABLET PEG SCH (05:56)
[2016-11-13] MEDS: LEVOTHYROXINE 75MCG TABLET (0.075MG) PEG SCH (05:56)
[2016-11-13] MEDS: SLF 3 ML SYR IV SCH ×2 (05:56→12:56)
[2016-11-13] MEDS ORDERED: CIPROFLOXACIN 500 MG TAB PO SCH (06:00)
[2016-11-13] MEDS: FORMOTEROL FUMARATE 20 MCG/2 ML INHALATION SOLUTION (PERFOROMIST) INH SCH (07:39)
[2016-11-13 08:29] VITALS: BP 108/59
[2016-11-13] MEDS ORDERED: BACITRACIN OINT 30GM TOP SCH (09:00)
[2016-11-13] MEDS: CHLORHEXIDINE GLUCONATE 0.12 % 15ML UDC (PERIDEX ORAL RINSE) MT SCH (09:00)
[2016-11-13] MEDS: SENOKOT S TAB PO SCH (09:00)
[2016-11-13] MEDS: MULTIVITAMINS CHILDREN'S CHEWABLE TABLET XX SCH (10:08)
[2016-11-13] MEDS: buPROPion 75 MG TAB PEG SCH (10:08)
[2016-11-13] MEDS: ALPRAZolam 0.5 MG TAB PEG SCH (10:08)
[2016-11-13] MEDS: LACTOBACILLUS ACIDOPHILUS CAP (BACID) PO SCH (10:08)
[2016-11-13] MEDS: ASPIRIN 81 MG CHEW TABLET PEG SCH (10:08)
[2016-11-13] MEDS: CETIRIZINE (ZyrTEC) 10 MG TAB PEG SCH (10:08)
[2016-11-13] MEDS: MAGNESIUM OXIDE 400 MG TAB (MAG-OX) PO SCH (10:08)
[2016-11-13 10:13] VITALS: BP 149/72
[2016-11-13] MEDS: METOPROLOL TART 25 MG TABLET PEG SCH (10:13)
[2016-11-13] MEDS: PANTOPRAZOLE 40MG INJ (PROTONIX) (C9113) IV SCH (10:13)
[2016-11-13] MEDS: LEVEMIR (INSULIN DETEMIR) 1 UNITS/0.01ML SC SCH (10:14)
[2016-11-13] MEDS: HEPARIN SOD (PORCINE) 5000 UNITS/ML VIAL SC SCH (10:14)
[2016-11-13] MEDS: VITAMIN D 1,000 INTERNATIONAL UNITS TABLET PEG SCH (10:14)
[2016-11-13] MEDS: FOLIC ACID 1 MG TAB PEG SCH (10:14)
[2016-11-13] MEDS: IPRATROPIUM 0.06% NASAL SPRAY 15 ML (ATROVENT) SCH (10:15)
[2016-11-13] MEDS: ASCORBIC ACID 500 MG TAB PEG SCH (10:15)
[2016-11-13] MEDS: ALLOPURINOL 100 MG TAB PEG SCH (10:15)
[2016-11-13] MEDS: FLUTICASONE PROP 0.05% NASAL SPRAY 16 GM (FLONASE) SCH (10:15)
[2016-11-13] MEDS: OMEGA-3 1050MG CAPSULE PO SCH (10:15)
[2016-11-13 13:00] VITALS: BP 150/68
[2016-11-13] MEDS ORDERED: LEVA1TAB2 PO (13:12)
--- NOTE | 2016-11-13 13:42 | DS.PDOC ---
Discharge Summary General Date of Admission Nov 10, 2016 at 05:12 Date of Discharge 11/13/16 Specialist/Consultants Involve: GARY LOCO MD @ Discharge Summary PROCEDURES PERFORMED DURING STAY: Trach cuff exchange ADMITTING DIAGNOSES: 1. . Ventilator associated pneumonia 2. . Hyponatremia DISCHARGE DIAGNOSES: 1. . Ventilator associated pneumonia 2. . Hyponatremia COMPLICATIONS/CHIEF COMPLAINT: Hyponatremia. HISTORY OF PRESENT ILLNESS: . 56-year-old male patient with underlying medical history of acute on chronic respiratory failure secondary to amyotrophic lateral sclerosis (ALS) with tracheostomy tube vent and percutaneous endoscopic gastrostomy (PEG) tube feeding from home with home tabletop ventilator, and underlying history of protein calorie malnutrition, chronic Carter with history of frequent urinary tract infection (UTI), PEG feeding, hypothyroidism, diabetes, CAD s/p CABG, gastroesophageal reflux disease (GERD), anxiety. He presented to the ER with the chief complaint of shortness of breath, weakness, diffuse myalgia, subjective fevers, and a report of thick secretions from his tracheostomy tube. The patient's history was limited as the patient is on a trach connected to the ventilator. Of note, the patient was recently admitted in August 2016 at which time he had the tracheostomy placed. In the ER, the patient was noted to have a white count of 14K, and a chest x- ray suggestive of multifocal pneumonia. A CTA of the chest revealed no acute pulmonary embolism. In addition, the patient was noted to have a serum sodium level of 120. The patient was admitted to the hospitalist service for further evaluation and management. During hospitalization, the patient was started on empiric antibiotic therapy for possible ventilator associated pneumonia. The patient's respiratory status and white blood cell count subsequently improved. The patient noted a return of his respiratory status back to its baseline. As for the patient's hyponatremia, it was believed to be secondary to increased water intake, as the patient's /caregiver revealed that she was giving the patient additional water feeds as she felt that he was dehydrated. Tube feedings and overall nutrition was discussed with the [facility] diet[facility] by our tester operator helper in an effort to prevent another episode of hyponatremia. The patient's serum sodium improved with gentle IV fluid hydration, and increased a total of 11 mEq/L over the first 24 hours, and a total 14 mEq/L over the ensuing 48 hours. The patient has had no neurological manifestations from the hyponatremia or the correction aside from his baseline neurological impairment from underlying ALS. In addition , the patient was scheduled to follow-up with ENT physician, Dr. Porter as an outpatient for exchange of his trach, as there was an air leak noted. ENT was consulted here and Dr. Porter has exchanged his trach cuff this morning. At this time, the patient is feeling much better and is eager to return home. I have advised the patient to continue Levaquin 500 mg by mouth daily for an additional 5 days to complete his antibiotic trial. In addition, the patient can follow-up with his primary care physician within one week. He has been advised to return to the ER if his symptoms were to return or worsen. DISCHARGE MEDICATIONS: Please see below. ALLERGIES: Please see below. PHYSICAL EXAMINATION ON DISCHARGE: VITAL SIGNS: Please see below. General Exam: Positive: Alert, Cooperative, No Acute Distress ENT Exam: Positive: Atraumatic, Mucous membr. moist/pink, Other ENT (+ Tracheostomy tube connected to table top ventilator) Neck Exam: Negative: JVD Chest Exam: Positive: Diminished, Negative: Rales Heart Exam: Positive: Rate Normal, Normal S1, Normal S2 Telemetry: Positive: Sinus Abdomen Exam: Positive: Soft, Other (+PEG tube), Negative: Tenderness Extremity Exam: Negative: Tenderness, Swelling LABORATORY DATA: Please see below. IMAGING: Clinical: Shortness of breath. Comparison: 09/17/2016. Findings: Evidence for prior sternotomy, CABG, and tracheostomy. The cardiac silhouette is normal for technique. Bilateral perihilar opacities and/or adenopathy is appreciated. Differential diagnosis includes multifocal pneumonia as well as early CHF/pulmonary vascular congestion. No obvious effusion. No pneumothorax. Skeletal structures intact. Impression: Perihilar opacities and/or adenopathy. Differential diagnosis includes CHF/pulmonary vascular congestion and multifocal pneumonia / atelectasis. CLINICAL HISTORY: Dyspnea, elevated d-dimers, exclude PE. TECHNIQUE: Multiple incremental axial, coronal and oblique images are obtained from the thoracic inlet to the upper abdomen. Intravenous contrast material was administered as per pulmonary embolism protocol. COMMENTS: Small left pleural effusion. Bilateral passive atelectatic airspace disease of the lower lobes. Unremarkable median sternotomy wires. Enlarged main pulmonary artery suggestive of pulmonary hypertension. Midline tracheostomy tube is in good position. There is excellent opacification of pulmonary arterial system without evidence for pulmonary embolism. Aneurysmal ascending aorta measuring 4.1 cm without evidence for dissection or aneurysm. There is no evidence of pleural or parenchymal mass. There is no evidence of hilar or mediastinal lymphadenopathy. The heart and great vessels are within normal limits. Images of the upper abdomen demonstrate no evidence of adrenal mass. The bony structures are free of lytic or blastic lesions. Multilevel degenerative changes are seen involving the visualized thoracolumbar spine. Scattered calcifications are seen involving the aorta and major branches compatible with atherosclerosis. IMPRESSION: No evidence for pulmonary embolism. Small left pleural effusion. Bilateral basilar atelectatic pulmonary disease. Midline tracheostomy tube is in good position. Distended stomach suggestive of gastroparesis. Calcified hepatic and splenic granulomas. PROGNOSIS: Medically stable ACTIVITY: As tolerated. DIET: . Tube feed diet as prescribed and indicated my [place] dietitian DISCHARGE PLAN: Home DISPOSITION: . DISCHARGE INSTRUCTIONS: 1. . Follow-up with primary care physician within one week 2. . Return to ER if symptoms return or persist. DISCHARGE CONDITION: Stable. TIME SPENT ON DISCHARGE: Greater than 30 minutes. Vital Signs/I&Os Vital Signs Date Time Temp Pulse Resp B/P (MAP) Pulse Ox O2 Delivery O2 Flow Rate FiO2 11/13/16 13:00 97.8 87 18 150/68 (95) 98 Trach Collar 4.0 I&O- Last 24 Hours up to 6 AM 11/13/16 06:00 Intake Total 1147 ml Output Total 2475 ml Balance -1328 ml Laboratory Data Labs 24H Laboratory Tests 2 11/12/16 17:42: Bedside Glucose (Misc Panel) 130H 11/12/16 23:49: Bedside Glucose (Misc Panel) 221H 11/13/16 04:53: Anion Gap 3L, Glomerular Filtration Rate > 60.0, Blood Urea Nitrogen 27H, Creatinine 0.82, Sodium Level 138, Potassium Level 4.4, Chloride Level 102, Carbon Dioxide Level 33H, Calcium Level 9.8, Aspartate Amino Transf (AST/SGOT) 12L, Alanine Aminotransferase (ALT/SGPT) 23, Alkaline Phosphatase 91, Total Bilirubin 0.3, Total Protein 6.2L, Albumin 2.8L, Magnesium Level 2.2, Albumin/ Globulin Ratio 0.82L 11/13/16 11:37: Bedside Glucose (Misc Panel) 143H CBC/BMP Laboratory Tests 11/13/16 04:53 Red Blood Count 3.48 L, Mean Corpuscular Volume 87.9, Mean Corpuscular Hemoglobin 29.2, Mean Corpuscular Hemoglobin Concent 33.2, Red Cell Distribution Width 15.1 H, Calcium Level 9.8, Aspartate Amino Transf (AST/SGOT) 12 L, Alanine Aminotransferase (ALT/SGPT) 23, Alkaline Phosphatase 91, Total Bilirubin 0.3, Total Protein 6.2 L, Albumin 2.8 L FSBS Laboratory Tests Test 11/12/16 17:42 11/12/16 23:49 11/13/16 11:37 Range/Units Bedside Glucose (Misc Panel) 130 221 143 80-115 MG/DL Microbiology Microbiology 11/10/16 Blood Culture - Preliminary, Resulted No Growth after 72 hours. All specime... 11/10/16 Blood Culture - Preliminary, Resulted No Growth after 72 hours. All specime... 11/10/16 Gram Stain - Final, Complete 11/10/16 Sputum Culture - Final, Complete Klebsiella Pneumoniae Acinetobacter Lwoffii 11/10/16 MRSA Screen - Final, Complete Staph.aureus Methicillin Resis 11/10/16 Respiratory Virus Panel (PCR) ([facility]) - Final, Complete 11/10/16 Urine Culture - Final, Complete Discharge Medications Scheduled (Flonase Allergy Relief) 50 Mcg/Act Spr, 1 SPRAY NA BID, (Reported) (Urea) 10 % Lot, 1 DOSE EXT DAILY, (Reported) USES ON DRY PATCHES ON BODY AFTER EACH SHOWER (Aspirin) 81 Mg Chw, 81 MG PEG DAILY, (Reported) (Methenamine Mandelate) 1 Gm Tab, 1 GM PEG BID, (Reported) (Fluorouracil) 5 % Cre, 1 DOSE EXT 5XW, (Reported) USES ON TUESDAY - TUESDAY ON TOP OF HEAD IN MORNING Allopurinol (Allopurinol) 100 Mg Tab, 100 MG PEG BID, (Reported) Alprazolam (Alprazolam) 0.5 Mg Tab, 0.5 MG PEG TID, (Reported) Ascorbic Acid (Ascorbic Acid) 500 Mg Tab, 500 MG PEG BID, (Reported) Atorvastatin Calcium (Atorvastatin Calcium) 80 Mg Tab, 40 MG PEG QHS, (Reported) Baclofen (Baclofen) 10 Mg Tab, 10 MG PEG QHS, (Reported) Bupropion HCl (Bupropion HCl) 75 Mg Tab, 75 MG PEG DAILY, (Reported) Cetirizine HCl (Cetirizine HCl) 10 Mg Tab, 10 MG PEG DAILY, (Reported) Cholecalciferol (Vitamin D) 1,000 Unit Tab, 1,000 UNIT PEG BID, (Reported) Finasteride (Finasteride) 5 Mg Tab, 5 MG PEG QHS, (Reported) Folic Acid (Folic Acid) 1 Mg Tab, 1 MG PEG DAILY, (Reported) Formoterol Fumarate Dihydrate (Perforomist) 20 Mcg/2 Ml Neb, 20 MCG INH QID, ( Reported) Furosemide (Furosemide) 40 Mg Tab, 20 MG PEG DAILY, (Reported) Hydroxyzine HCl (Hydroxyzine HCl) 50 Mg Tab, 50 MG PEG Q6H, (Reported) Insulin Glargine (Lantus) 1 Units/0.01 Ml Susp, 15 UNITS SC QAM, (Reported) Ipratropium Capac (Ipratropium Capac) 165 [place]/15 Ml Naspr, 2 SPRAY NA BID, (Reported) Levofloxacin Hemihydrate (Levaquin) 500 Mg Tab, 500 MG PO DAILY Levothyroxine Sodium (Synthroid) 75 Mcg Tab, 75 MCG PEG DAILY, (Reported) Magnesium Oxide (Magnesium Oxide) 400 Mg Tab, 400 MG PO DAILY, (Reported) Metformin Hydrochloride (Metformin HCl) 1,000 Mg Tab, 1,000 MG PO BID, (Reported ) Metoprolol Tartrate (Metoprolol Tartrate) 25 Mg Tab, 25 MG PEG BID, (Reported) Multivitamins Chewable *[facility] STOCKED* (Animal Shapes with C & FA *[facility] STOCKED*) 1 Tab Chew, 1 TAB PEG DAILY, (Reported) [place] 3 Polyunsat Fatty Acids ([place] 3 1000 mg) 1 Cap Cap, 2 CAP PO BID, ( Reported) Petrolatum (Vaseline) 1 Gel Gel, 1 GEL EXT QHS, (Reported) USES ON TOP OF HEAD Petrolatum (Vaseline) 1 Gel Gel, 1 GEL EXT 2XWK, (Reported) USES IN PLACE OF FLUOROURACIL ON TUESDAY AND TUESDAY ON TOP OF HEAD IN MORNING Scheduled PRN (Diclofenac Sodium) 1 % Gel, 2 GM TD QID PRN for PAIN, (Reported) PLACED ON NECK AND BACK Acetaminophen (Tylenol) 325 Mg Tab, 650 MG PEG Q6H PRN for PAIN / FEVER, ( Reported) Ondansetron (Ondansetron Odt) 4 Mg Tab, 4 MG PEG Q6H PRN for NAUSEA, (Reported) Allergies Coded Allergies: Niacin (Unverified Allergy, Intermediate, rash, 09/02/16) DERIK RIZO MD Nov 13, 2016 13:42
[2016-11-13] MEDS ORDERED: METO-346 PO (13:52)
--- NOTE | 2016-11-13 17:36 | IPN ---
DATE: 11/13/2016 SUBJECTIVE: Mr. Major is seen this morning on his bedside. He is feeling well and tolerating his tube feeding well. Nursing staff reports that there is a plan for change of tracheostomy tube and then later discharge to home. The patient has no fever, chills, nausea, vomiting, diarrhea or abdominal pain. PHYSICAL EXAMINATION: VITAL SIGNS: Temperature 97.4 degrees Fahrenheit, heart rate 68 per minute and respiratory rate 18 per minute. Blood pressure 108/57 mmHg and oxygen saturation 99%. HEAD/NECK: Head is atraumatic. Neck is without jugular venous distention (JVD). Tracheostomy is in place and he is corrected to the ventilator. CARDIORESPIRATORY: Heart sounds are regular and lungs with good bilateral air entry. ABDOMEN: Soft and a percutaneous endoscopic gastrostomy (PEG) tube is in place. EXTREMITIES: Have no cyanosis or clubbing. NEUROLOGIC: He is at his baseline mentation. Intake and output records show a negative fluid balance of about 600 over last 24 hours. Since admission he has about 2.77 liters negative balance. LABORATORY DATA: Today's labs show WBC count 7.7, hemoglobin 10.2, hematocrit 30.6. Sodium 138 and potassium 4.4. BUN 27 and creatinine 0.82. PROBLEMS: 1. Hyponatremia. Sodium level has now corrected completely. The patient is feeling well and has no change in his neurological status. His nutrition and tube feeding have been adjusted. He has been in negative fluid balance of 2.77 liters since admission. I have advised the nursing staff to increase the free water to 200 every six hours between feeds. 2. Nutrition. The patient has been receiving tube feedings and he will be followed up by a [facility] dietitian. I have discussed with her over the phone about his nutritional needs and fluid needs. 3. Anemia. His anemia is chronic and nutritional. I suggest iron supplement for long-term use. 4. Disposition: The patient is being discharged to home later today. He will followup with his primary physician at the [place] [facility]. I am signing off his case.
== END 2016-11-13 15:45 | disposition home health service (06) | DRG 206 ==
LOC: EDBD 01:37 → M ED 01:37 → M ED INP 05:12 → EEVIPCON 05:12 → M ICU 06:25 → M PCU 11-12 14:55
PROVIDERS: ADMIT Hospitalist; ATTEND Internal Medicine
DX: J95.851 Ventilator associated pneumonia (principal); E87.1 Hypo-osmolality and hyponatremia; G12.21 Amyotrophic lateral sclerosis; Z99.11 Dependence on respirator [ventilator] status; E46 Unspecified protein-calorie malnutrition; J96.11 Chronic respiratory failure with hypoxia; E03.9 Hypothyroidism, unspecified; K31.84 Gastroparesis; I16.0 Hypertensive urgency; E11.9 Type 2 diabetes mellitus without complications; N40.0 Benign prostatic hyperplasia without lower urinary tract symptoms; F41.9 Anxiety disorder, unspecified; Z96.0 Presence of urogenital implants; Z93.0 Tracheostomy status; Z93.1 Gastrostomy status; Z87.440 Personal history of urinary (tract) infections; Z95.1 Presence of aortocoronary bypass graft; Z79.82 Long term (current) use of aspirin; Z79.4 Long term (current) use of insulin; Z88.8 Allergy status to other drugs, medicaments and biological substances; Z87.891 Personal history of nicotine dependence; Z79.899 Other long term (current) drug therapy; B96.1 Klebsiella pneumoniae [K. pneumoniae] as the cause of diseases classified elsewhere; B95.62 Methicillin resistant Staphylococcus aureus infection as the cause of diseases classified elsewhere

== ENCOUNTER 2017-01-21 16:54 | Emergency (ER) | payer OTHER, MEDICARE ==
[~2017-01-21] VITALS: Ht 175.3 cm; Wt 66.8 kg
[2017-01-21 16:54] VITALS: BP 178/95
[~2017-01-21 16:54] MED LIST changes: +ALPR0.5T3 PEG; +ASCO500T PEG; +ASPI81CH PEG; +ATOR80TA59 PEG; +BUPR75TA5 PEG; +CLIN150C14 PEG; +DICL1GEL3 TD; +FINA5TAB2 PEG; +FLUO1CRE2 EXT; +FURO40TA2 PEG; +HYDR50TA70 PEG; +LEVA1TAB2 PO; +METH1TAB PEG; +METO-346 PO; +METO25TA4 PEG; +ONDA4TAB6 PEG; +VASEGEL EXT; +VITACHTA PEG; +[UNRECOGNIZED DRUG - CODE] TOP
== END 2017-01-21 19:16 | disposition home or self-care (01) ==
LOC: M ED 16:54
DX: J95.09 Other tracheostomy complication (principal); E11.9 Type 2 diabetes mellitus without complications; K21.9 Gastro-esophageal reflux disease without esophagitis; G12.21 Amyotrophic lateral sclerosis; Z79.899 Other long term (current) drug therapy; Z79.82 Long term (current) use of aspirin; Z79.4 Long term (current) use of insulin; Z88.8 Allergy status to other drugs, medicaments and biological substances

== ENCOUNTER 2017-01-27 03:27 | Emergency (ER) | payer OTHER, MEDICARE ==
[~2017-01-27] VITALS: Ht 172.7 cm; Wt 66.8 kg
[2017-01-27] MEDS ORDERED: RILU1TAB2 PEG (03:54)
[2017-01-27 04:03] VITALS: O2SAT 98
[2017-01-27] MEDS ORDERED: LIDOCAINE 4% TOPICAL SOLN 50 ML BTL As Ordered ONE (04:51)
[2017-01-27] MEDS ORDERED: LIDOCAINE 4% TOPICAL SOLN 50 ML BTL TOP ONE (05:20)
[2017-01-27 06:00] VITALS: BP 103/73
--- NOTE | 2017-01-27 07:08 | CR ---
DATE OF CONSULTATION: 01/27/2017 REASON FOR CONSULTATION: The patient was seen at [facility] Emergency Room early in the morning around 4: 30 a.m. Called by the emergency room physician for chief complaint of difficulty with ventilation with tracheotomy tube and leak. HISTORY OF PRESENT ILLNESS: This patient had presented to [facility] (ENT) one week prior with similar situation. This was resolved in the emergency room with a decent control of his leak. The patient had done well until about approximately 3 a.m. or so this morning, had some more difficulty, was brought back to [facility] Emergency Room. He has chronic respiratory failure secondary to amyotrophic lateral sclerosis. Also has a percutaneous endoscopic gastrostomy (PEG) tube placed, and he came to the emergency room at [facility] where his tidal volumes were relatively low. His saturations, however, were very good. He also apparently has cervical disc disease which does not allow him to put his head much further. Initial emergency room (ER) physician could not control the airway adequately for long periods of time, but could keep the saturations elevated, and I was called for further management of this patient. After discussions, we were able to obtain a number 8 Bivona tracheotomy tube from the operating room (OR), and after that was done, we were ready to change that out. PAST MEDICAL HISTORY: Positive as mentioned for amyotrophic lateral sclerosis (ALS) which has multiple issues. The patient has coronary artery disease, chronic respiratory failure, progressive ALS, chronic obstructive pulmonary disease, hypertension, chronic Carter, hypothyroidism, thoracic kyphosis, gout, diabetes, chronic constipation, and anxiety. PAST SURGICAL HISTORY: Cardiac stent 1999, coronary artery bypass graft (CABG) 2008, tracheostomy. Surgery for high colonic obstruction with appendectomy, tracheostomy, and PEG. SOCIAL HISTORY: The patient has a history of [id number] smoking. Denies any significant alcohol use at this time. REVIEW OF SYSTEMS: Is limited to obtaining it from the family as this is more of an urgent issue to deal with his airway, but other than those remarked previously, otherwise unremarkable. PHYSICAL EXAMINATION: The patient is in the emergency room. Saturations are 95% with good color at this point. Pinnae are within normal limits. There is some cerumen in the right ear, left ear is relatively clear. Nasal exam shows normal nasal mucosa. Oral exam shows lips, hard palate, posterior oropharynx are within normal limits. Neck is slightly kyphotic and twisted to the right. The patient has a number 8 Shiley cuffed tube with obvious leak present . I did have to go up and search, and we did find a Bivona #8 Portex from the operating room (OR). We did bring this down, and also brought down the flexible fiberoptic. Prior to change, flexible fiberoptic tracheostomy was performed after putting 1 mL of topical 4% lidocaine down the trachea, and there was no obvious granulation tissue present. After this, the right and left mainstem were visualized. There was no granulation tissue at the tip present. At this point, the tracheotomy tube, after securing and preparing the #8 Bivona Portex tube, this was checked out and then another mL was placed in the previous tracheotomy site, then the cuff was released. At this time, the old tracheotomy tube was removed, and the Bivona was placed, and it was secured. The patient had much better saturations and much better tidal volumes, and everything was back to normal range. The patient voiced that he felt much better as well. At this point, chest x-ray was ordered but it was pending; however, breath sounds were equal bilaterally as we were waiting. 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 The patient may require another tracheotomy tuber with extra distal legnth as opposed to #8 with a standard length, and may need to have that special ordered. They had already talked with Dr. Minor and Dr. Moise previously. They will be referred back to them. Thank you again for involving me in the care of this patient. SIMONA
--- NOTE | 2017-01-27 07:28 | REP ---
Clinical: Tracheostomy in positioning. Comparison: 11/10/2016. Findings: Tracheostomy overlies the airway in satisfactory midline position. Evidence for prior sternotomy and CABG. The cardiac silhouette is normal. The lung mo demonstrate chronic interstitial changes with subtle infrahilar opacities (right greater than left). Small layering effusion cannot be excluded. No pneumothorax. Skeletal structures stable. Impression: 1. Tracheostomy in satisfactory position. 2. Chronic interstitial changes with possible subtle tony hilar opacities. Cannot exclude small layering effusion. Signed by Josh Saeed MD 01/27/2017 07:20 A
== END 2017-01-27 06:31 | disposition home or self-care (01) ==
LOC: M ED 03:27 → EDBD 03:27 → M ED 06:31
DX: Z45.89 Encounter for adjustment and management of other implanted devices (principal); E11.9 Type 2 diabetes mellitus without complications; I11.9 Hypertensive heart disease without heart failure; G12.21 Amyotrophic lateral sclerosis; Z79.899 Other long term (current) drug therapy; Z79.82 Long term (current) use of aspirin; Z79.4 Long term (current) use of insulin; Z88.8 Allergy status to other drugs, medicaments and biological substances

== ENCOUNTER 2017-02-07 12:10 | Inpatient (IN) | payer OTHER, MEDICARE ==
[2017-02-07] VITALS (11 sets, daily range): BP systolic 109–137; BP diastolic 58–73; O2SAT 96
[~2017-02-07] VITALS: Ht 172.7 cm; Wt 71.9 kg
[~2017-02-07 12:10] MED LIST changes: +RILU1TAB2 PEG
[2017-02-07] MEDS ORDERED: TERA5CA PEG (12:33)
[2017-02-07 12:38] LABS: ABG HCO3 35.1 MEQ/L (22.0-26.0); ABG PARTIAL PRESSURE CO2 49.9 mmHg (35.0-45.0); ABG PARTIAL PRESSURE O2 81.3 mmHg (75.0-100.0); ABG STANDARD HCO3 33.8 MEQ/L (22.0-26.0); ABG TOTAL CO2 36.6 MEQ/L (23.0-31.0); ABG pH (ARTERIAL) 7.465 UNITS (7.350-7.450)
[2017-02-07 13:17] LABS: MEAN CORPUSCULAR HEMOGLOBIN 27.2 pg (27.0-33.0); MEAN CORPUSCULAR HGB CONC 30.7 g/dl (32.0-36.5); MEAN CORPUSCULAR VOLUME 88.7 fl (80.0-96.0); PLATELET COUNT, AUTOMATED 169 10^3/uL (150-450); RED CELL DISTRIBUTION WIDTH 15.2 % (11.5-14.5)
[2017-02-07 13:20] LABS: ADD MANUAL DIFFER YES; DIFF SLIDE NUMBER 220
[2017-02-07 13:30] LABS: YEAST LIKE CELL URINE AUTO MODERATE
[2017-02-07] MEDS ORDERED: VANCOMYCIN HCL 1,000 MG, VIAL MATE ADAPTER 1 EACH in D5W 250 ML IV ONE (13:30)
[2017-02-07] MEDS ORDERED: NS 1,000 ML IV ONE (13:30)
[2017-02-07] MEDS ORDERED: CEFEPIME HCL 2 GM in D5W 50 ML IV ONE (13:30)
[2017-02-07] MEDS ORDERED: LevoFLOXacin IV 750 MG in APPROPRIATE DILUENT 1 EA IV ONE (13:30)
[2017-02-07 13:43] LABS: ANION GAP 4 MEQ/L (8-16); BLOOD UREA NITROGEN 49 MG/DL (7-18); CALCIUM LEVEL 10.1 MG/DL (8.8-10.2); CARBON DIOXIDE LEVEL 38 MEQ/L (21-32); CHLORIDE LEVEL 98 MEQ/L (98-107); CREATININE FOR GFR 0.64 MG/DL (0.70-1.30); GLOMERULAR FILTRATION RATE > 60.0 (>49); GLUCOSE, FASTING 188 MG/DL (80-110); POTASSIUM SERUM 4.4 MEQ/L (3.5-5.1); SODIUM LEVEL 140 MEQ/L (136-145)
[2017-02-07 13:49] LABS: ALBUMIN 2.8 GM/DL (3.2-5.2); ALBUMIN/GLOBULIN RATIO 0.72 (1.00-1.93); BILIRUBIN,DIRECT 0.3 MG/DL (0.0-0.2); BILIRUBIN,TOTAL 0.6 MG/DL (0.2-1.0); TOTAL PROTEIN 6.7 GM/DL (6.4-8.2)
[2017-02-07 14:00] LABS: BANDS 9 % (< 11)
[2017-02-07 14:01] LABS: ANISOCYTOSIS 1+; MICROCYTOSIS 1+
[2017-02-07] MEDS ORDERED: METO1TAB87 PEG (14:03)
[2017-02-07] MEDS ORDERED: INSUH10VL SC (14:03)
[2017-02-07] MEDS ORDERED: ATOR1TAB21 PEG (14:07)
[2017-02-07] MEDS ORDERED: SENN15UDC PEG (14:07)
[2017-02-07] MEDS ORDERED: GLUC1.2L PEG (14:07)
[2017-02-07] MEDS ORDERED: ALPRAZolam 0.25 MG TAB PEG ONE (14:15)
--- NOTE | 2017-02-07 14:25 | REP ---
Oral chest x-ray: Single view. History: Dyspnea and cough. Comparison study: January 27, 2017. Findings: Tracheostomy tube is seen in good position. Prior sternotomy wires and EKG electrodes are noted along with oxygen delivery tubing. There are large new infiltrates throughout much of the left lung in a perihilar distribution and in the right base consistent with bilateral pneumonia. There is increased density behind the heart in the left lower lobe. Impression: Extensive pneumonia in the left upper lobe, left lower lobe, and right lower lobe distribution. Signed by Lionel Morel MD 02/07/2017 02:16 P
[2017-02-07] MEDS ORDERED: IPRATROPIUM 0.5MG/ALBUTEROL 2.5MG INH SOL UD 3ML (DUONEB)(J7620) As Ordered ONE (14:58)
[2017-02-07] MEDS ORDERED: ACETAMINOPHEN 325 MG TAB PEG PRN (15:00)
[2017-02-07] MEDS ORDERED: ONDANSETRON 4 MG ORAL DISINTEGRATING TAB (S0181) PEG PRN (15:00)
[2017-02-07] MEDS ORDERED: SENNA SYRUP 15 ML UDC PEG PRN (15:00)
[2017-02-07] MEDS ORDERED: DEXTROSE 50% 50 ML SYRINGE IV PRN (15:15)
[2017-02-07] MEDS ORDERED: GLUCAGON FOR INJ 1 MG VIAL (J1610) SC PRN (15:15)
[2017-02-07] MEDS ORDERED: GLUCOSE 4 GM CHEW TABLET PO PRN (15:15)
[2017-02-07] MEDS: NS 1,000 ML IV SCH (15:18)
[2017-02-07] MEDS ORDERED: ALPRAZolam 0.5 MG TAB PEG SCH (16:00)
--- NOTE | 2017-02-07 16:11 | HPE ---
DATE OF ADMISSION: 02/07/2017 PRIMARY CARE PROVIDER: Devan Locke MD ENT: Dr. Porter CHIEF COMPLAINT: Shortness of breath and cough. HISTORY OF PRESENT ILLNESS: The patient is a 66-year-old male with chronic respiratory failure who is status post trach and percutaneous endoscopic gastrostomy (PEG) secondary to amyotrophic lateral sclerosis (ALS). He was recently admitted on 11/10 to 11/11/2016 with similar complaints and was found to have ventilator-associated pneumonia and improved on antibiotics. Also, at that time, he was found to have an air leak and has had numerous replacements by the ENT service since then. He was actually scheduled to have a permanent trach placed tomorrow by Dr. Porter; however, he has had progressively worsening shortness of breath over the last several days. He reportedly became acutely tachycardic and desaturated at home and his aide made vent changes and was able to suction out minimal from his trach and he was brought to the emergency room for respiratory distress. At the present time, he does not feel significantly better. He still complains of shortness of breath. His and aide are bedside and provide much of the history, as well as review of the chart. PAST MEDICAL HISTORY: 1. ALS, status post trach and PEG. 2. Protein calorie malnutrition. 3. Chronic Carter catheter. 4. Hypothyroidism. 5. Diabetes. 6. Gastroesophageal reflux disease (GERD). 7. Anxiety. 8. Coronary artery disease. 9. Chronic obstructive pulmonary disease (COPD). 10. Hypertension. 11. Kyphosis. 12. Dyslipidemia. 13. Gout. 14. Constipation. 15. 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 ALLERGIES: Denies. PAST SURGICAL HISTORY: 1. Cardiac stent. 2. Coronary artery bypass graft. 3. Tracheostomy with numerous trach exchanges. 4. PEG placement. SOCIAL HISTORY: Former, 90-pack year history. He does not drink any alcohol. He lives at home with his and has aides at home. FAMILY HISTORY: Noncontributory. REVIEW OF SYSTEMS: Negative other than in the history of present illness. HOME MEDICATIONS: - Perforomist 20 mcg inhaled twice a day - Lasix 20 mg twice a day - metformin 1 gram twice a day - diclofenac topically 2 grams three times a day as needed for pain - Glucerna 60 mL per PEG three times a day - methenamine mandelate 1 gram per PEG twice a day - Tylenol 650 mg every 6 hours as needed for pain or fever - atenolol 100 mg via PEG twice a day - alprazolam 0.5 mg three times a day - vitamin C 500 mg twice a day - aspirin 81 mg daily - atorvastatin 20 mg at night - Baclofen 10 mg at night - bupropion 75 mg daily - cetirizine 10 mg daily - vitamin D 2000 units twice a day - Flonase two sprays nasally daily - folic acid 1 mg daily - hydroxyzine 50 mg every 6 hours as needed for anxiety - NovoLog 15 units in the morning - ipratropium nasal spray three times a day - Synthroid 75 mcg daily - magnesium oxide 400 mg daily - metoprolol tartrate 12.5 mg twice a day - multivitamin one tablet daily - omega 3 1000 mg capsule twice a day - Zofran 4 mg every 6 hours as needed for nausea - riluzole 50 mg twice a day - senna syrup daily as needed for constipation - terazosin 5 mg daily PHYSICAL EXAMINATION: Temperature 99, heart rate 123, respiratory rate 20, blood pressure 131/70, oxygen saturation 95% on trach. GENERAL: He is a frail, cachectic, elderly, man lying on a stretcher at a 30 degree angle. He is receiving tube feeds and his and aide are both bedside. The patient does not appear to be in any acute distress. HEENT: He has dry mucous membranes. He is disheveled. He has a trach in place with some mild surrounding erythema. CARDIOVASCULAR EXAM: S1, S2. Tachycardic. No additional heart sounds appreciated. RESPIRATORY EXAM: He has diffuse rhonchi. ABDOMINAL EXAM: Bowel sounds present. The abdomen is soft and nontender. EXTREMITIES: No clubbing or cyanosis. He appears mildly wasted. LABORATORY STUDIES: WBC 16.0, hemoglobin 10.4, hematocrit 33.9, platelet count 169. Chemistry panel: Sodium 140, potassium 4.4, chloride 98, bicarbonate 30, BUN 49, creatinine 0.6, lactic acid 2.8, alkaline phosphatase elevated at 167. One set of cardiac enzymes are negative. BNP is mildly elevated at 457. TSH within normal limits. D-dimer is elevated at 2086. Blood gas revealed a pH of 7.4, PCO2 of 49.9, PO2 of 81.3. UA shows 2+ leukocyte esterase, 17 WBCs, 1+ bacteria but no symptoms. Blood culture, urine culture, sputum cultures are currently pending. IMAGING: The patient had a chest x-ray that revealed extensive pneumonia in the left upper, left lower and right lower lobe distribution. ASSESSMENT AND PLAN: This is a 66-year-old man presenting with what appears to be a ventilator-associated pneumonia. 1. Ventilator-associated pneumonia. He is tachycardic with leukocytosis, elevated lactic acid, likely related to increased work of breathing; however, we will provide him with gentle IV fluids. Continue antibiotics that were started in the emergency room, broad spectrum with cefepime, vancomycin, levofloxacin. Followup cultures and trend as appropriate. I have reached out to Dr. Mitchell of ENT and awaiting a call back for possible trach placement, as he was scheduled to have a permanent trach placed tomorrow by Dr. Porter. Dr. Lee was kind enough to see the patient in the emergency room and making adjustments to his nebulizer treatments, as well as managing his vent. Dr. Lee has recommended that the patient be admitted to the progressive care unit (PCU) for close, continued monitoring. He is on his home table top vent. 2. Chronic obstructive pulmonary disease (COPD). Nebulizer treatments and inhalers as outlined above. It does not appear as though this is an acute decompensation. I will hold off on steroids in the setting of what is more likely a bacterial infection. 3. Kyphosis, possibly contributing to his baseline respiratory difficulties, perhaps a mild degree of restrictive lung disease. We will attempt to optimize respiratory status as best as possible. 4. Dyslipidemia. Continue with his statin. 5. Gout. Continue his allopurinol. 6. Anxiety. Continue alprazolam. The patient is on bupropion. The patient is on hydroxyzine. 7. Coronary artery disease. Continue with aspirin, statin and a beta gautam with holding parameters. 8. Fluid overload. He does not appear to have significant kidney disease. He has no documented history of congestive heart failure (CHF). He is on Lasix; however, at this time he appears clinically dry and I am actually providing IV fluids. I will hold his Lasix. 9. Seasonal allergies. Continue with cetirizine. The patient is on Flonase. 10. Vitamin D deficiency. Continue his supplementation. 11. Amyotrophic lateral sclerosis (ALS). Continue with Baclofen and Riluzole. 12. Hypothyroidism. Continue with Synthroid. His TSH is within normal limits. 13. Diabetes. Continue with home Diabetisource, five feeds daily and 600 of free water. This will also aid in fluid balance with 2-becky total via his PEG tube. The patient will be on sliding scale insulin on top of his regular insulin, as well as hypoglycemic protocol. 14. Chronic constipation. Continue with senna. 15. Deep vein thrombosis (DVT) prophylaxis. The patient will be on Lovenox. DISPOSITION: The patient is admitted to the progressive care unit (PCU) to Dr. Muir's service, who will continue following the patient at 7:00 a.m.
[2017-02-07] MEDS: ALBUTEROL SULFATE 2.5 MG/0.5 ML INH NEB SOLN NEB PRN (16:15)
--- NOTE | 2017-02-07 16:15 | ECGEPIP ---
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
--- NOTE | 2017-02-07 17:08 | CR ---
DATE OF CONSULTATION: 02/07/2017 I was asked to evaluate Mr. Major here in the emergency room (ER). In essence, this is a 66-year-old gentleman with advanced amyotrophic lateral sclerosis (ALS) who has been on home ventilatory support via tracheostomy. He has had some recent issues with tracheostomy seal, mainly on the basis of inability to straighten his neck. He recently had a Bivona tracheostomy placed and was awaiting a special tracheostomy ordered by Dr. Porter. It did arrive and he was to get that in tomorrow. In the meantime, however, the home health aide has noticed a tachycardia for about the last 48 hours with some increased yellowish secretions. This morning, he required a little bit of a change in his ventilator at home due to a sense of shortness of breath which resolved with those changes but he was brought in for evaluation by them. In the ER, he was found to have an elevated white count with a mildly elevated lactate and a chest x-ray which suggests infiltrates bilaterally, left much greater than right, and he is now admitted. ALLERGIES: Listed only as NIACIN. MEDICATIONS AT HOME: - Perforomist via nebulizer twice a day - albuterol as needed - acetaminophen as needed - allopurinol 100 twice a day - Xanax 0.5 three times a day as needed - baclofen 10 mg at night - bupropion 75 mg twice a day - cetirizine 10 mg daily - diclofenac gel four times a day - fluticasone nasal spray twice a day - folic acid 1 mg a day - Lasix 40 mg one-half tablet twice a day - hydroxyzine 50 mg four times a day - insulin on a sliding scale - Synthroid 0.075 mg daily - metformin 100 mg a day - metoprolol 25 mg twice a day - tube feeds Diabetisource six cans a day - Glucerna to alternate with the above - atorvastatin 80 mg half a tablet daily PAST MEDICAL HISTORY: Significant for: 1. Amyotrophic lateral sclerosis (ALS), advanced with chronic respiratory failure, now on home ventilator support. 2. Enteral feeds via a percutaneous endoscopic gastrostomy (PEG) tube. 3. Diabetes mellitus, insulin requiring. 4. Hypercholesterolemia. 5. Chronic low level aspiration. 6. Hypothyroidism. SOCIAL HISTORY: The patient lives at home. Family and home health aides care for him. He receives most of his [facility] through [facility] FAMILY HISTORY: Noncontributory to his current status. REVIEW OF SYSTEMS: As per the history of present illness (HPI). Otherwise, constitutional negative for any reported fevers. HEENT: Unremarkable for any new neurologic visual changes. PULMONARY: As per the HPI with chronic ventilator support. CARDIAC: Unremarkable for any recent angina. GASTROINTESTINAL (GI): Significant for his percutaneous endoscopic gastrostomy (PEG) tube. GENITOURINARY (): Unremarkable for chronic Carter. NEUROLOGIC: Significant for his amyotrophic lateral sclerosis (ALS). ENDOCRINE: Significant for hypothyroidism and diabetes. PSYCHIATRIC: Significant for some underlying anxiety. HEMATOLOGIC: Unremarkable for any chronic dysuresia. PHYSICAL EXAMINATION: Reveals a chronically ill-appearing gentleman, fairly comfortable at rest. He does communicate via a pad and with some nodding and blinking. Heart rate 124 with a sinus mechanism, blood pressure 127 systolic, respiratory rate around 16 without accessory muscle use and he is currently afebrile. HEENT: Shows his tracheostomy site to have some scant yellowish secretions. There is no obvious leak. Membranes are mildly dry. CHEST: Shows symmetric expansion although diminished. There are some rhonchi, especially at the apices. There are some dependent crackles without any obvious rubs or convincing egophony. CARDIAC: Tachycardic but regular. Peripheral pulses are palpable. No obvious edema. ABDOMEN: Shows active bowel sounds. His percutaneous endoscopic gastrostomy (PEG) site is clean and dry. No obvious masses. EXTREMITIES: Without cyanosis or clubbing. NEUROLOGIC: There are findings consistent with his advanced amyotrophic lateral sclerosis (ALS) with muscle wasting. PSYCHIATRIC: Currently, he is calm and responds appropriately as best as he can to questioning. Chest x-ray, as outlined above, shows a significant left mid zone infiltrate, cannot rule out edema. There are similar findings in the right lower lobe. LABORATORY DATA: Most recent laboratories show a white blood cell count of 16.0, hemoglobin 10.4, platelet count 169,000, 80% segmented cells, 9% bands. Sodium 140, potassium 4.4, chloride 98, CO2 38, BUN 49, creatinine 0.64, lactic acid mildly elevated at 2.8. Troponins unremarkable. Blood gas done on his home ventilator settings, mainly of pressure support of 18, PEEP of 5 and at 4 four liters bleed-in shows a pH of 7.465, pCO2 of 49.9, and a pO2 of 81.3, saturation 96.2%. D-dimer elevated at 2086. UA does show 1+ protein, 2+ leukocyte esterase, 17 white cells per high-power field. IMPRESSION: 1. Ventilator-associated pneumonia on home ventilator. 2. Chronic respiratory failure on home ventilatory support. 3. Advanced amyotrophic lateral sclerosis (ALS). 4. Hypothyroidism. 5. Diabetes mellitus, insulin requiring. RECOMMENDATIONS: At this point, I am agreeing with broad-spectrum antimicrobials. Blood cultures and sputum cultures have been ordered. He is getting IV hydration. He should continue his current level of nutrition. His blood gas and current oxygenation status and ventilatory status is currently acceptable on his home ventilator settings. He was to have his specialized tracheostomy put in by Dr. Porter tomorrow. He has the tracheostomy with him and certainly we can involve Dr. Porter and get that done while he is here. At this point, he will be followed while he is here in the hospital. Further recommendations will be made in the record as new information becomes available.
[2017-02-07] MEDS: ENOXAPARIN 40 MG/0.4 ML SYRINGE (J1650) SC SCH (17:29)
--- NOTE | 2017-02-07 18:12 | PHACANCOPD ---
PHARMACY VANCOMYCIN DOSING Pt Demographics Demographics Patient Age:66 , Weight:66.500 , Gender: male Adjusted Body Weight Date: 02/07/17, Adjusted Body Weight: Kg Events Past 24 Hours Events Past 24 Hours: YES: Fever, Elevation in WBC, NO: Dialysis, Diuretic Therapy, Change in CrCl, Pending Diagnostics, Pending Procedures, Other Vancomycin Vancomycin Target Ranges: 15-20 mcg/ml Vancomycin Load Y/N: Yes Load Dose Date Time Vancomycin Load Dose: 2G Date: 02/07/17 Time: 1700 Vancomycin Dose Date: 02/07/17. Current Vancomycin Dose: [1G Q12H] Intermittent Dosing?: No Labs Labs Vital Signs Label Value Date Time Patient Temperature 99.0 degrees F 02/07/17 1219 Temperature Source Temporal 02/07/17 1219 Item Value Date Time White Blood Count 16.0 10^3/uL H 02/07/17 1231 Creatinine 0.64 MG/DL L 02/07/17 1231 Micro Microbiology 02/07/17 Blood Culture, Received Pending 02/07/17 Blood Culture, Received Pending 02/07/17 Gram Stain - Final, Resulted 02/07/17 Sputum Culture, Resulted Pending 02/07/17 Urine Culture, Received Pending Creatinine Clearance Date:02/07/17. Creatinine Clearance: . Assessment and Plan Maintaining Current Dose?: Yes Reason for dose change: No Dose Change Pharmacist Note Pharmacist Note Date: 02/07/17. Pharmacist note: Pt. is a 66 year old male ALS patient who was brought to the hospital with possible Ventilator Acquired Pneumonia. He has a slight elevation in WBC and low grade fever. He was last treated in October with Vanco for the same indication. His nasal swab in October tested positive for MRSA, however pt has not had an active MRSA infection at our facility. We will start pt with Vanco 2gm loading dose followed by 1G Q12H. I have scheduled a trough right before the 4th dose. We will continue to monitor and adjust dose as needed. BARBARA ALEXANDER PHARMACY Feb 07, 2017 18:12
[2017-02-07] MEDS: IPRATROPIUM 0.06% NASAL SPRAY 15 ML (ATROVENT) SCH ×2 (18:20→21:01)
[2017-02-07] MEDS: VANCOMYCIN HCL 1,000 MG, VIAL MATE ADAPTER 1 EACH in D5W 250 ML IV SCH (19:43)
[2017-02-07] MEDS: HumaLOG INSULIN (NovoLOG) PER UNIT SC SCH (19:43)
[2017-02-07] MEDS: ATORVASTATIN 20 MG TAB PEG SCH (20:58)
[2017-02-07] MEDS: VITAMIN D 1,000 INTERNATIONAL UNITS TABLET PEG SCH (20:58)
[2017-02-07] MEDS: ALPRAZolam 0.25 MG TAB PEG SCH (20:58)
[2017-02-07] MEDS: ASCORBIC ACID 500 MG TAB PEG SCH (20:59)
[2017-02-07] MEDS: ALLOPURINOL 100 MG TAB PEG SCH (20:59)
[2017-02-07] MEDS: OMEGA-3 1050MG CAPSULE PEG SCH (20:59)
[2017-02-07] MEDS: PANTOPRAZOLE 40MG INJ (PROTONIX) (C9113) IV SCH (20:59)
[2017-02-07] MEDS: RILUZOLE 50 MG PO SCH (20:59)
[2017-02-07] MEDS: BACLOFEN 10 MG TAB PEG SCH (20:59)
[2017-02-07] MEDS ORDERED: HumaLOG INSULIN (NovoLOG) PER UNIT SC SCH (21:00)
[2017-02-07] MEDS: METOPROLOL TART 12.5 MG PER 1/2 TAB PEG SCH (21:00)
[2017-02-07] MEDS: IPRATROPIUM 0.5MG/ALBUTEROL 2.5MG INH SOL UD 3ML (DUONEB)(J7620) NEB SCH ×2 (21:40→23:20)
[2017-02-07] MEDS: BUDESONIDE 0.5 MG/2 ML INHALATION SUSPENSION INH SCH (21:40)
[2017-02-07] MEDS: FORMOTEROL FUMARATE 20 MCG/2 ML INHALATION SOLUTION (PERFOROMIST) INH SCH (23:20)
[2017-02-08] VITALS (15 sets, daily range): BP systolic 98–157; BP diastolic 56–79; O2SAT 98
[2017-02-08] MEDS: CEFEPIME HCL 1 GM in D5W 50 ML IV SCH ×2 (01:45→14:41)
[2017-02-08] MEDS: IPRATROPIUM 0.5MG/ALBUTEROL 2.5MG INH SOL UD 3ML (DUONEB)(J7620) NEB SCH ×6 (04:32→23:14)
[2017-02-08] MEDS: NS 1,000 ML IV SCH (04:38)
[2017-02-08] MEDS: VANCOMYCIN HCL 1,000 MG, VIAL MATE ADAPTER 1 EACH in D5W 250 ML IV SCH ×2 (05:29→17:34)
[2017-02-08] MEDS: LEVOTHYROXINE 75MCG TABLET (0.075MG) PEG SCH (05:52)
[2017-02-08 07:19] LABS: RETIC HEMOGLOBIN EQUIVALENT 21.6 pg (24-36)
[2017-02-08 07:44] LABS: ALBUMIN 1.9 GM/DL (3.2-5.2); ALBUMIN/GLOBULIN RATIO 0.66 (1.00-1.93); ALKALINE PHOSPHATASE 98 U/L (45-117); ALT/SGPT 14 U/L (12-78); ANION GAP 6 MEQ/L (8-16); AST/SGOT 4 U/L (15-37); BILIRUBIN,TOTAL 0.5 MG/DL (0.2-1.0); BLOOD UREA NITROGEN 43 MG/DL (7-18); CALCIUM LEVEL 9.1 MG/DL (8.8-10.2); CARBON DIOXIDE LEVEL 31 MEQ/L (21-32); CHLORIDE LEVEL 104 MEQ/L (98-107); CREATININE FOR GFR 0.42 MG/DL (0.70-1.30); FERRITIN 763 NG/ML (26-388); GLOMERULAR FILTRATION RATE > 60.0 (>49); GLUCOSE, FASTING 169 MG/DL (80-110); PERCENT SATURATION 13.6 % (19.7-50.0); POTASSIUM SERUM 4.2 MEQ/L (3.5-5.1); SODIUM LEVEL 141 MEQ/L (136-145); TOTAL IRON BINDING CAPACITY 125 UG/DL (250-450); TOTAL PROTEIN 4.8 GM/DL (6.4-8.2)
[2017-02-08] MEDS: BUDESONIDE 0.5 MG/2 ML INHALATION SUSPENSION INH SCH ×2 (08:13→19:40)
[2017-02-08] MEDS: FORMOTEROL FUMARATE 20 MCG/2 ML INHALATION SOLUTION (PERFOROMIST) INH SCH ×2 (08:13→19:40)
[2017-02-08] MEDS: METOPROLOL TART 12.5 MG PER 1/2 TAB PEG SCH ×3 (08:25→20:14)
[2017-02-08] MEDS: HumaLOG INSULIN (NovoLOG) PER UNIT SC SCH ×4 (08:41→23:56)
[2017-02-08] MEDS: LEVEMIR (INSULIN DETEMIR) 1 UNITS/0.01ML SC SCH (08:41)
[2017-02-08] MEDS: TERAZOSIN 5 MG CAP PEG SCH (08:42)
[2017-02-08] MEDS: OMEGA-3 1050MG CAPSULE PEG SCH ×2 (08:42→20:15)
[2017-02-08] MEDS: FOLIC ACID 1 MG TAB PEG SCH (08:43)
[2017-02-08] MEDS: RILUZOLE 50 MG PO SCH ×2 (08:43→20:15)
[2017-02-08] MEDS: buPROPion 75 MG TAB PEG SCH (08:44)
[2017-02-08] MEDS: VITAMIN D 1,000 INTERNATIONAL UNITS TABLET PEG SCH ×2 (08:44→20:15)
[2017-02-08] MEDS: ALPRAZolam 0.25 MG TAB PEG SCH ×3 (08:44→20:15)
[2017-02-08] MEDS: FLUTICASONE PROP 0.05% NASAL SPRAY 16 GM (FLONASE) SCH (08:44)
[2017-02-08] MEDS: ALLOPURINOL 100 MG TAB PEG SCH ×2 (08:44→20:15)
[2017-02-08] MEDS: ASCORBIC ACID 500 MG TAB PEG SCH ×2 (08:44→20:15)
[2017-02-08] MEDS: ASPIRIN 81 MG CHEW TABLET PEG SCH (08:44)
[2017-02-08] MEDS: ENOXAPARIN 40 MG/0.4 ML SYRINGE (J1650) SC SCH (08:45)
[2017-02-08] MEDS ORDERED: HumaLOG INSULIN (NovoLOG) PER UNIT SC SCH (09:00)
[2017-02-08] MEDS: MULTIVITAMIN/MINERALS LIQUID 15ML ORAL SYRINGE PEG SCH (09:25)
[2017-02-08] MEDS: CETIRIZINE (ZyrTEC) 10 MG TAB PEG SCH (09:25)
[2017-02-08] MEDS: MAGNESIUM OXIDE 400 MG TAB (MAG-OX) PEG SCH (09:25)
[2017-02-08] MEDS: IPRATROPIUM 0.06% NASAL SPRAY 15 ML (ATROVENT) SCH ×3 (09:56→23:03)
[2017-02-08 10:58] LABS: MEAN CORPUSCULAR HEMOGLOBIN 27.1 pg (27.0-33.0); MEAN CORPUSCULAR HGB CONC 30.6 g/dl (32.0-36.5); MEAN CORPUSCULAR VOLUME 88.5 fl (80.0-96.0); RED CELL DISTRIBUTION WIDTH 15.1 % (11.5-14.5); WHITE BLOOD COUNT 12.2 10^3/uL (4.0-10.0)
[2017-02-08] MEDS ORDERED: LevoFLOXacin IV 750 MG in APPROPRIATE DILUENT 1 EA IV SCH (12:00)
--- NOTE | 2017-02-08 12:27 | IPN ---
DATE: 02/08/2017 Mr. Major spent the evening in the emergency department last night as there were no beds in the progressive care unit (PCU). He has no complaints of pain, chest pain, shortness of breath. His is at bedside. Temperature is 97.6, pulse 105, respiratory rate 22, blood pressure 98/64 which repeats to 150/72, and 96% on his ventilator. Ins and outs notable for a positive fluid balance of 1830. He is awake and appropriately interactive. Nodding appropriately and following commands. Head is normocephalic. Neck supple. He has a trach in place and a PEG in place. Breathing is symmetrical. I:E ratio is 1:3, distant sounding. Heart is distant sounding. Normal S1, S2. He is not tachycardic. Abdomen is soft, doughy, nontender. There is some mucoid drainage and some excoriation around his PEG site. No significant lower extremity edema. White count 16, hemoglobin 10.4 and platelets of 169. Repeat labs are not back from this morning. BUN 43, creatinine 0.42, CRP is 25.5. Repeat chest x-ray is ordered for this morning. Sputum is pending. ASSESSMENT: This is a 66-year-old with amyotrophic lateral sclerosis (ALS) who is ventilator dependent with ventilator associated pneumonia. PLAN: 1. The patient has ventilator associated pneumonia. He is on Cefepime, vancomycin and Levaquin. Cultures are pending. I have discussed this case in person with Dr. Lee today. The patient has admission orders for the PCU when a bed should become available. I have discussed this with the nursing hydrochloric manufacturing supervisor and would like to get this person upstairs sooner rather than later. 2. The patient has a trach which is due to be changed today. I have left a message with Dr. Porter who apparently is in the operating room today to see if we can still exchange that and that seems like the kind of thing that may be able to happen during this admission and not likely at bedside. 3. The patient has chronic obstructive pulmonary disease (COPD), steroids have not been given. 4. The patient has kyphosis, thought to have mild degree of respiratory lung disease by my colleague. 5. The patient has dyslipidemia. 6. The patient has gout. 7. The patient has anxiety. 8. The patient has coronary artery disease. 9. The patient is on chronic Lasix therapy which is currently being held. He has been given IV fluids as his blood pressure has intermittently been soft. Lactic acidosis was likely from his respiratory status. 10. The patient has ALS. 11. The patient has hypothyroidism. 12. The patient has diabetes, on diabetic feeds and insulin. 13. The patient has appropriate deep vein thrombosis (DVT) prophylaxis. 14. The patient has chronic constipation. 16. The patient is a full code.
[2017-02-08] MEDS: hydrOXYzine 50 MG TAB PEG PRN (14:02)
[2017-02-08] MEDS ORDERED: GASTROGRAFIN SOLUTION 30ML (Q9963) As Ordered ONE (16:03)
--- NOTE | 2017-02-08 17:07 | REP ---
Portable chest x-ray: Single view: History: Pneumonia. Comparison study: February 07, 2017. Findings: There is a tracheostomy tube in good position. Prior median sternotomy wires and mediastinal clips are noted. The large left perihilar infiltrate is again seen with some air bronchograms. This is a little less prominent than on yesterday's radiograph. There is plate-like atelectasis in the right base above an elevated right hemidiaphragm which is new. No other new pulmonary parenchymal consolidation is seen. Impression: Left perihilar infiltrate persists slightly improved. There is new plate-like atelectasis at the right base. Signed by Lionel Morel MD 02/08/2017 05:33 P
--- NOTE | 2017-02-08 17:26 | REP ---
PEG TUBE INJECTION FOR PLACEMENT: The images were reviewed with Dr. Morel. 100 mL of a 50/50 solution of Gastrographin and water was instilled into the PEG tube. Images demonstrate filling of the stomach with contrast passing into the duodenum and proximal small bowel without delay. The tube appears to be in good position with no evidence of extravasation. IMPRESSION: PEG tube appears to be in good position with no evidence of extravasation. 1 minute and 47 seconds of fluoroscopy time was utilized for this procedure. Reviewed by JO Roach 02/09/2017 04:15 PEdited and Signed by Lionel Morel MD 02/09/2017 05:00 P
[2017-02-08] MEDS: LORazepam 2 MG/ML VIAL (J2060) IV PRN ×2 (18:52→22:55)
[2017-02-08] MEDS: D5W/0.9% SODIUM CHLORIDE 1,000 ML IV SCH (18:54)
[2017-02-08] MEDS: BACLOFEN 10 MG TAB PEG SCH (20:13)
[2017-02-08] MEDS: ATORVASTATIN 20 MG TAB PEG SCH (20:14)
[2017-02-08] MEDS ORDERED: GLUCOSE 4 GM CHEW TABLET PO PRN (21:45)
[2017-02-08] MEDS ORDERED: GLUCAGON FOR INJ 1 MG VIAL (J1610) SC PRN (21:45)
[2017-02-08] MEDS ORDERED: DEXTROSE 50% 50 ML SYRINGE IV PRN (21:45)
[2017-02-08] MEDS: PANTOPRAZOLE 40MG INJ (PROTONIX) (C9113) IV SCH (21:50)
[2017-02-09] VITALS (14 sets, daily range): BP systolic 105–174; BP diastolic 57–83; O2SAT 97–99
[2017-02-09] MEDS: CEFEPIME HCL 1 GM in D5W 50 ML IV SCH ×2 (01:07→13:32)
[2017-02-09] MEDS: IPRATROPIUM 0.5MG/ALBUTEROL 2.5MG INH SOL UD 3ML (DUONEB)(J7620) NEB SCH ×6 (03:27→23:39)
[2017-02-09] MEDS: LEVOTHYROXINE 75MCG TABLET (0.075MG) PEG SCH (05:31)
[2017-02-09] MEDS: VANCOMYCIN HCL 1,000 MG, VIAL MATE ADAPTER 1 EACH in D5W 250 ML IV SCH (05:40)
[2017-02-09 05:44] LABS: MEAN CORPUSCULAR HEMOGLOBIN 26.5 pg (27.0-33.0); MEAN CORPUSCULAR VOLUME 88.4 fl (80.0-96.0); RED CELL DISTRIBUTION WIDTH 14.8 % (11.5-14.5); WHITE BLOOD COUNT 9.5 10^3/uL (4.0-10.0)
[2017-02-09 06:03] LABS: ALBUMIN 1.7 GM/DL (3.2-5.2); ALBUMIN/GLOBULIN RATIO 0.49 (1.00-1.93); ALKALINE PHOSPHATASE 100 U/L (45-117); ALT/SGPT 17 U/L (12-78); ANION GAP 4 MEQ/L (8-16); AST/SGOT 11 U/L (15-37); BILIRUBIN,TOTAL 0.3 MG/DL (0.2-1.0); BLOOD UREA NITROGEN 30 MG/DL (7-18); CALCIUM LEVEL 9.4 MG/DL (8.8-10.2); CARBON DIOXIDE LEVEL 32 MEQ/L (21-32); CHLORIDE LEVEL 106 MEQ/L (98-107); CREATININE FOR GFR 0.32 MG/DL (0.70-1.30); GLOMERULAR FILTRATION RATE > 60.0 (>49); GLUCOSE, FASTING 115 MG/DL (80-110); SODIUM LEVEL 142 MEQ/L (136-145); TOTAL PROTEIN 5.2 GM/DL (6.4-8.2)
[2017-02-09] MEDS: HumaLOG INSULIN (NovoLOG) PER UNIT SC SCH ×3 (06:18→17:42)
[2017-02-09] MEDS: LORazepam 2 MG/ML VIAL (J2060) IV PRN ×4 (06:24→23:13)
--- NOTE | 2017-02-09 06:39 | PHACANCOPD ---
PHARMACY VANCOMYCIN DOSING Pt Demographics Demographics Patient Age:66 , Weight:68.000 , Gender: male Adjusted Body Weight Date: 02/07/17, Adjusted Body Weight: Kg Events Past 24 Hours Events Past 24 Hours: NO: Dialysis, Diuretic Therapy, Change in CrCl, Fever, Elevation in WBC, Pending Diagnostics, Pending Procedures, Other Vancomycin Vancomycin Target Ranges: 15-20 mcg/ml Vancomycin Load Y/N: Yes Load Dose Date Time Vancomycin Load Dose: 2G Date: 02/07/17 Time: 1700 Vancomycin Dose Date: 02/09/17. Current Vancomycin Dose: [1G Q12H] Intermittent Dosing?: No Labs Labs Item Value Date Time White Blood Count 9.5 10^3/uL 02/09/17 0507 Creatinine 0.32 MG/DL L 02/09/17 0507 Vancomycin Level Trough 19.2 UG/ML 02/09/17 0507 Vital Signs Label Value Date Time Patient Temperature 98.1 degrees F 02/09/17 0000 Temperature Source Temporal 02/09/17 0000 Micro Microbiology 02/07/17 Blood Culture - Preliminary, Resulted No growth after 24 hours . All specim... 02/07/17 Blood Culture - Preliminary, Resulted No growth after 24 hours . All specim... 02/07/17 Gram Stain - Final, Resulted 02/07/17 Sputum Culture, Resulted Pending 02/07/17 Urine Culture, Received Pending Creatinine Clearance Date:02/07/17. Creatinine Clearance: . Assessment and Plan Maintaining Current Dose?: Yes Reason for dose change: No Dose Change Pharmacist Note Pharmacist Note Date: 02/07/17. Pharmacist note: Trough of 19.2 is within target range. Will continue current dosing. Will continue to monitor and make adjustments as needed. ALINA YAÑEZ PHARMACY Feb 09, 2017 06:39
[2017-02-09] MEDS: FORMOTEROL FUMARATE 20 MCG/2 ML INHALATION SOLUTION (PERFOROMIST) INH SCH ×2 (08:12→19:55)
[2017-02-09] MEDS: BUDESONIDE 0.5 MG/2 ML INHALATION SUSPENSION INH SCH ×2 (08:12→19:54)
[2017-02-09] MEDS: METOPROLOL TART 12.5 MG PER 1/2 TAB PEG SCH ×2 (09:00→19:25)
[2017-02-09] MEDS: ALLOPURINOL 100 MG TAB PEG SCH ×2 (09:00→19:26)
[2017-02-09] MEDS: MAGNESIUM OXIDE 400 MG TAB (MAG-OX) PEG SCH (09:00)
[2017-02-09] MEDS: VITAMIN D 1,000 INTERNATIONAL UNITS TABLET PEG SCH ×2 (09:00→19:26)
[2017-02-09] MEDS: ASPIRIN 81 MG CHEW TABLET PEG SCH (09:00)
[2017-02-09] MEDS: TERAZOSIN 5 MG CAP PEG SCH (09:00)
[2017-02-09] MEDS: RILUZOLE 50 MG PO SCH ×2 (09:00→19:26)
[2017-02-09] MEDS: ALPRAZolam 0.25 MG TAB PEG SCH ×3 (09:00→19:26)
[2017-02-09] MEDS: LEVEMIR (INSULIN DETEMIR) 1 UNITS/0.01ML SC SCH (09:00)
[2017-02-09] MEDS: ASCORBIC ACID 500 MG TAB PEG SCH ×2 (09:00→19:25)
[2017-02-09] MEDS: FOLIC ACID 1 MG TAB PEG SCH (09:00)
[2017-02-09] MEDS: buPROPion 75 MG TAB PEG SCH (09:00)
[2017-02-09] MEDS: CETIRIZINE (ZyrTEC) 10 MG TAB PEG SCH (09:00)
[2017-02-09] MEDS: OMEGA-3 1050MG CAPSULE PEG SCH ×2 (09:00→19:25)
[2017-02-09] MEDS: MULTIVITAMIN/MINERALS LIQUID 15ML ORAL SYRINGE PEG SCH (09:00)
[2017-02-09] MEDS: ENOXAPARIN 40 MG/0.4 ML SYRINGE (J1650) SC SCH (10:46)
[2017-02-09] MEDS: FLUTICASONE PROP 0.05% NASAL SPRAY 16 GM (FLONASE) SCH (10:47)
[2017-02-09] MEDS: IPRATROPIUM 0.06% NASAL SPRAY 15 ML (ATROVENT) SCH ×3 (10:52→21:14)
[2017-02-09] MEDS: D5W/0.9% SODIUM CHLORIDE 1,000 ML IV SCH ×2 (12:05→23:21)
--- NOTE | 2017-02-09 13:09 | IPN ---
DATE: 02/09/2017 Mr. Major had more leakage from his G tube yesterday even after a negative Gastrografin study. Was taking Ativan for anxiety yesterday. No complaints currently. Temperature is 97, pulse 118, respiratory rate 18, blood pressure 140/74, 98% on his chronic vent. Intake and output notable for a positive fluid balance of 945, two bowel movements yesterday. He is awake and appropriately interactive. Nonverbal, but answering with nods. Breathing is symmetrical, upper airway sounds. Heart is distant. No significant arrhythmia on the monitor. Abdomen is soft, doughy, nontender. There is no drainage from around his G tube site. White cell count 9.5, hemoglobin 7.8, platelets 141, ESR is 108, sodium 142, BUN 30, creatinine 0.32, CRP 16. Sputum has grown E. Coli, which matches the urine. This is relatively sensitive. Dr. Lee and I have discussed this. Dr. Lee stopped the quinolone and vancomycin. My assessment is as follows: This is a 66-year-old with ALS who is ventilator dependent with ventilator associated pneumonia and G tube dysfunction. Plan is as follows: 1. Patient has ventilator acquired pneumonia with E. coli likely from a urinary source related to suctioning. Antibiotics have been de-escalated. 2. Patient has a trach which was changed yesterday by Dr. Porter. Greatly appreciate his assistance in his care. 3. Patient has chronic obstructive pulmonary disease (COPD). No evidence of decompensation. No steroids at this point. 4. Patient has kyphosis and may have a mild degree of restrictive lung disease. 5. Patient has dyslipidemia. 6. Patient has gout. 7. Patient has developing anemia. Will monitor his hemoglobin and hematocrit. He is right around 8. He is somewhat tachycardic. He may benefit from a transfusion or repeat CBC later. 8. Patient has a history of coronary artery disease. 9. Patient is on chronic Lasix therapy which is being held. Some aspect of his anemia can be dilutional. 10. Patient has ALS on chronic vent. 11. Patient has diabetes. Has been on diabetic feeds and insulin. Feeds are currently held, but he is on fluid with D5. 12. Patient has chronic constipation. 13. Patient has appropriate deep vein thrombosis (DVT) prophylaxis. 14. Patient is a FULL CODE.
[2017-02-09 14:04] LABS: MEAN CORPUSCULAR HEMOGLOBIN 26.3 pg (27.0-33.0); MEAN CORPUSCULAR HGB CONC 29.7 g/dl (32.0-36.5); MEAN CORPUSCULAR VOLUME 88.7 fl (80.0-96.0); RED CELL DISTRIBUTION WIDTH 14.9 % (11.5-14.5); WHITE BLOOD COUNT 11.8 10^3/uL (4.0-10.0)
[2017-02-09] MEDS ORDERED: NITROGLYCERIN 2% OINT 1 GM *U/D* PKT TOP ONE (17:00)
[2017-02-09] MEDS: BACLOFEN 10 MG TAB PEG SCH (19:25)
[2017-02-09] MEDS: ATORVASTATIN 20 MG TAB PEG SCH (19:25)
[2017-02-09] MEDS: PANTOPRAZOLE 40MG INJ (PROTONIX) (C9113) IV SCH (21:14)
[2017-02-10] VITALS (16 sets, daily range): BP systolic 87–175; BP diastolic 56–82; PULSE 123; O2SAT 99–100
[2017-02-10] MEDS: HumaLOG INSULIN (NovoLOG) PER UNIT SC SCH ×5 (00:02→23:46)
[2017-02-10] MEDS: CEFEPIME HCL 1 GM in D5W 50 ML IV SCH ×2 (02:12→14:25)
[2017-02-10] MEDS: LEVOTHYROXINE 75MCG TABLET (0.075MG) PEG SCH ×2 (03:09→08:57)
[2017-02-10] MEDS: LORazepam 2 MG/ML VIAL (J2060) IV PRN ×2 (03:16→08:03)
[2017-02-10] MEDS: D5W/0.9% SODIUM CHLORIDE 1,000 ML IV SCH (03:20)
[2017-02-10] MEDS: IPRATROPIUM 0.5MG/ALBUTEROL 2.5MG INH SOL UD 3ML (DUONEB)(J7620) NEB SCH ×6 (03:30→23:48)
[2017-02-10 05:18] LABS: MEAN CORPUSCULAR HEMOGLOBIN 27.1 pg (27.0-33.0); MEAN CORPUSCULAR HGB CONC 30.2 g/dl (32.0-36.5); MEAN CORPUSCULAR VOLUME 89.9 fl (80.0-96.0); WHITE BLOOD COUNT 12.3 10^3/uL (4.0-10.0)
[2017-02-10] MEDS ORDERED: NITROGLYCERIN 2% OINT 1 GM *U/D* PKT TOP STA (05:23)
[2017-02-10 05:45] LABS: ALBUMIN 1.9 GM/DL (3.2-5.2); ALBUMIN/GLOBULIN RATIO 0.48 (1.00-1.93); ALKALINE PHOSPHATASE 97 U/L (45-117); ALT/SGPT 19 U/L (12-78); ANION GAP 6 MEQ/L (8-16); AST/SGOT 7 U/L (15-37); BILIRUBIN,TOTAL 0.5 MG/DL (0.2-1.0); BLOOD UREA NITROGEN 16 MG/DL (7-18); CALCIUM LEVEL 9.5 MG/DL (8.8-10.2); CARBON DIOXIDE LEVEL 32 MEQ/L (21-32); CHLORIDE LEVEL 105 MEQ/L (98-107); CREATININE FOR GFR 0.41 MG/DL (0.70-1.30); GLOMERULAR FILTRATION RATE > 60.0 (>49); GLUCOSE, FASTING 171 MG/DL (80-110); POTASSIUM SERUM 3.8 MEQ/L (3.5-5.1); SODIUM LEVEL 143 MEQ/L (136-145); TOTAL PROTEIN 5.9 GM/DL (6.4-8.2)
--- NOTE | 2017-02-10 05:54 | IPNPDOC ---
Text Note Date of Service The patient was seen on 02/10/17. NOTE provider called to see pt for acute onset of chest pain, below left breast, worse with inspiration and pressure applied to the area, stat EKG did not demonstrate signs of impending ischemia or infarct, rate 120's, BP 154/76, stat cardiac markers currently pending, pt was given nitrobid .5 gm. pt denied SOB, n /v and admitted he always feels hot, but no tomy perspiration. will await cardiac markers and trend. VS,Fishbone, I+O VS, Fishbone, I+O Laboratory Tests 02/09/17 13:54 Red Blood Count 3.00 L, Mean Corpuscular Volume 88.7, Mean Corpuscular Hemoglobin 26.3 L, Mean Corpuscular Hemoglobin Concent 29.7 L, Red Cell Distribution Width 14.9 H 02/10/17 04:51 Red Blood Count 3.17 L, Mean Corpuscular Volume 89.9, Mean Corpuscular Hemoglobin 27.1, Mean Corpuscular Hemoglobin Concent 30.2 L, Red Cell Distribution Width 15.0 H, Calcium Level 9.5, Aspartate Amino Transf (AST/SGOT) 7 L, Alanine Aminotransferase (ALT/SGPT) 19, Alkaline Phosphatase 97, Total Bilirubin 0.5 #, Total Protein 5.9 L, Albumin 1.9 L Vital Signs Date Time Temp Pulse Resp B/P (MAP) Pulse Ox O2 Delivery O2 Flow Rate FiO2 02/10/17 05:28 144/74 02/10/17 04:00 Ventilator 8.0 02/10/17 04:00 121 16 99 02/10/17 04:00 98.4 02/07/17 20:00 GME ATTESTATION GME ATTESTATION My preceptor for this patient encounter was physically present in the building during the encounter and was fully available. As needed, all aspects of the patient interview, examination, medical decision making process, and medical care plan development were reviewed and approved by the preceptor. Preceptor is aware and concurs with the plan as stated in the body of this note and will attest to such by his/her cosignature. LILIAN YUNG DO Feb 10, 2017 05:54
--- NOTE | 2017-02-10 07:15 | ECGEPIP ---
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
[2017-02-10] MEDS: FORMOTEROL FUMARATE 20 MCG/2 ML INHALATION SOLUTION (PERFOROMIST) INH SCH ×2 (07:53→20:08)
[2017-02-10] MEDS: BUDESONIDE 0.5 MG/2 ML INHALATION SUSPENSION INH SCH ×2 (07:54→20:00)
[2017-02-10] MEDS: ENOXAPARIN 40 MG/0.4 ML SYRINGE (J1650) SC SCH (08:03)
[2017-02-10] MEDS: LEVEMIR (INSULIN DETEMIR) 1 UNITS/0.01ML SC SCH (08:04)
[2017-02-10] MEDS: ASPIRIN 81 MG CHEW TABLET PEG SCH ×2 (08:06→09:02)
[2017-02-10] MEDS: MULTIVITAMIN/MINERALS LIQUID 15ML ORAL SYRINGE PEG SCH (08:07)
[2017-02-10] MEDS: IPRATROPIUM 0.06% NASAL SPRAY 15 ML (ATROVENT) SCH ×3 (08:08→21:10)
[2017-02-10] MEDS: ALPRAZolam 0.25 MG TAB PEG SCH ×3 (08:53→21:09)
[2017-02-10] MEDS: FLUTICASONE PROP 0.05% NASAL SPRAY 16 GM (FLONASE) SCH (08:53)
[2017-02-10] MEDS: METOPROLOL TART 12.5 MG PER 1/2 TAB PEG SCH ×2 (08:54→21:08)
[2017-02-10] MEDS: FOLIC ACID 1 MG TAB PEG SCH (08:54)
[2017-02-10] MEDS: ALLOPURINOL 100 MG TAB PEG SCH ×2 (08:58→21:10)
[2017-02-10] MEDS: OMEGA-3 1050MG CAPSULE PEG SCH ×2 (08:58→21:08)
[2017-02-10] MEDS: buPROPion 75 MG TAB PEG SCH (09:00)
[2017-02-10] MEDS: VITAMIN D 1,000 INTERNATIONAL UNITS TABLET PEG SCH ×2 (09:00→21:09)
[2017-02-10] MEDS: MAGNESIUM OXIDE 400 MG TAB (MAG-OX) PEG SCH (09:00)
[2017-02-10] MEDS: ASCORBIC ACID 500 MG TAB PEG SCH ×2 (09:00→21:09)
[2017-02-10] MEDS: RILUZOLE 50 MG PO SCH ×2 (09:01→21:10)
[2017-02-10] MEDS: LevoFLOXacin IV 750 MG in APPROPRIATE DILUENT 1 EA IV SCH (09:01)
[2017-02-10] MEDS: CETIRIZINE (ZyrTEC) 10 MG TAB PEG SCH (09:01)
[2017-02-10] MEDS: TERAZOSIN 5 MG CAP PEG SCH (09:01)
--- NOTE | 2017-02-10 09:54 | REP ---
Chest x-ray: Portable exam. History: Chest pain. Comparison study: February 08, 2017. Findings: Tracheostomy tube remains in place. Prior sternotomy wires and EKG electrodes are seen. Oxygen delivery tubing is seen. There is linear opacity in the right base consistent with plate-like atelectasis. Homogeneous opacity in the left lower and mid hemithorax suggests left pleural effusion. No new infiltrate is seen. Signed by Lionel Morel MD 02/10/2017 11:58 A
[2017-02-10] MEDS: ACETAMINOPHEN TAB 650MG DOSE (2X325MG) PEG PRN ×2 (12:37→21:18)
--- NOTE | 2017-02-10 14:53 | IPN ---
DATE: 02/10/2017 Mr. Major is feeling okay this morning. He had chest pain last night. He still has not had any feeds as of my assessment this morning. Temperature 98.4, pulse 118, respiratory rate 23, blood pressure 144/74, 98% on ventilator. Intake and output notable for a positive fluid balance of 140. One bowel movement yesterday. He is awake, appropriately interactive, nonverbal. No acute distress. Breathing is symmetrical and diminished. I-to-E ratio is 1:3. Some upper airway noises are noted. Heart is distant sounding. Normal S1 and S2, is tachycardic with a rate between 100 to 110 on my exam. Abdomen is soft, doughy, nontender. White cell count 12.3, hemoglobin 8.6, platelets of 117. BUN 16, creatinine 0.4, Troponin negative. Chest x-ray done today shows no new infiltrate. My assessment is as follows: This is a 66-year-old with ALS show is ventilator dependent with ventilator associated pneumonia with G tube dysfunction. Plan is as follows: 1. Patient has ventilator acquire pneumonia which grew E. coli and now has grown Pseudomonas as well. We de-escalated from three antibiotics to one and now is increased back again to 2. I did discuss this in general with Dr. Lee. 2. Patient has a newly changed trach by Dr. Moise. Patient seems to be tolerating this well. 3. Patient has chronic obstructive pulmonary disease (COPD). No evidence of decompensation. 4. Patient has chronic catheter and has grown two bacteria in his urine which are covered by the two antibiotics that he is currently on. 5. Patient has kyphosis and a mild degree of restricted lung disease suspected. 6. Patient has dyslipidemia. 7. Patient has gout. 8. Patient has had developed anemia. I did obtain informed consent for blood transfusion yesterday, but hemoglobin and hematocrit remains stable. 9. Patient has coronary artery disease. 10. Patient is on Lasix therapy which is reordered today. 11. Patient has ALS and is on chronic vent. 12. Patient has diabetes and his diabetic feeds are reordered. 13. Patient has chronic constipation and is having bowel movements in the hospital. 13. Patient is on appropriate deep vein thrombosis (DVT) prophylaxis. 14. Patient is a FULL CODE.
[2017-02-10] MEDS: ATORVASTATIN 20 MG TAB PEG SCH (21:06)
[2017-02-10] MEDS: BACLOFEN 10 MG TAB PEG SCH (21:06)
[2017-02-10] MEDS: PANTOPRAZOLE 40MG INJ (PROTONIX) (C9113) IV SCH (21:10)
[2017-02-11] VITALS (9 sets, daily range): BP systolic 92–156; BP diastolic 53–77
[2017-02-11] MEDS: CEFEPIME HCL 1 GM in D5W 50 ML IV SCH ×2 (01:48→13:51)
[2017-02-11] MEDS: hydrOXYzine 50 MG TAB PEG PRN (02:22)
[2017-02-11] MEDS: IPRATROPIUM 0.5MG/ALBUTEROL 2.5MG INH SOL UD 3ML (DUONEB)(J7620) NEB SCH ×5 (02:56→23:22)
[2017-02-11] MEDS: ACETAMINOPHEN TAB 650MG DOSE (2X325MG) PEG PRN ×2 (03:19→15:12)
[2017-02-11 04:57] LABS: MEAN CORPUSCULAR HEMOGLOBIN 26.6 pg (27.0-33.0); MEAN CORPUSCULAR HGB CONC 29.3 g/dl (32.0-36.5); PLATELET COUNT, AUTOMATED 168 10^3/uL (150-450); RED CELL DISTRIBUTION WIDTH 14.7 % (11.5-14.5); WHITE BLOOD COUNT 8.9 10^3/uL (4.0-10.0)
[2017-02-11 05:24] LABS: ALBUMIN 1.6 GM/DL (3.2-5.2); ALBUMIN/GLOBULIN RATIO 0.42 (1.00-1.93); ALKALINE PHOSPHATASE 154 U/L (45-117); ALT/SGPT 41 U/L (12-78); ANION GAP 6 MEQ/L (8-16); AST/SGOT 46 U/L (15-37); BILIRUBIN,TOTAL 0.3 MG/DL (0.2-1.0); BLOOD UREA NITROGEN 25 MG/DL (7-18); CALCIUM LEVEL 8.8 MG/DL (8.8-10.2); CARBON DIOXIDE LEVEL 31 MEQ/L (21-32); CHLORIDE LEVEL 103 MEQ/L (98-107); CREATININE FOR GFR 0.43 MG/DL (0.70-1.30); GLOMERULAR FILTRATION RATE > 60.0 (>49); GLUCOSE, FASTING 190 MG/DL (80-110); POTASSIUM SERUM 4.1 MEQ/L (3.5-5.1); SODIUM LEVEL 140 MEQ/L (136-145); TOTAL PROTEIN 5.4 GM/DL (6.4-8.2)
[2017-02-11] MEDS: LEVOTHYROXINE 75MCG TABLET (0.075MG) PEG SCH (05:47)
[2017-02-11] MEDS: HumaLOG INSULIN (NovoLOG) PER UNIT SC SCH ×3 (05:48→17:30)
[2017-02-11 06:05] LABS: ERYTHROCYTE SEDIMENTATION RATE > 140 mm/hr (0-20)
[2017-02-11] MEDS: FORMOTEROL FUMARATE 20 MCG/2 ML INHALATION SOLUTION (PERFOROMIST) INH SCH ×2 (08:00→19:23)
[2017-02-11] MEDS: BUDESONIDE 0.5 MG/2 ML INHALATION SUSPENSION INH SCH (08:00)
[2017-02-11] MEDS: IPRATROPIUM 0.06% NASAL SPRAY 15 ML (ATROVENT) SCH ×2 (09:00→16:00)
[2017-02-11] MEDS: METOPROLOL TART 12.5 MG PER 1/2 TAB PEG SCH ×2 (09:00→21:41)
[2017-02-11] MEDS: FLUTICASONE PROP 0.05% NASAL SPRAY 16 GM (FLONASE) SCH (09:00)
[2017-02-11] MEDS: LEVEMIR (INSULIN DETEMIR) 1 UNITS/0.01ML SC SCH (09:13)
[2017-02-11] MEDS: LevoFLOXacin IV 750 MG in APPROPRIATE DILUENT 1 EA IV SCH (09:13)
[2017-02-11] MEDS: MULTIVITAMIN/MINERALS LIQUID 15ML ORAL SYRINGE PEG SCH (09:13)
[2017-02-11] MEDS: FOLIC ACID 1 MG TAB PEG SCH (09:13)
[2017-02-11] MEDS: ASCORBIC ACID 500 MG TAB PEG SCH ×2 (09:14→21:40)
[2017-02-11] MEDS: TERAZOSIN 5 MG CAP PEG SCH (09:14)
[2017-02-11] MEDS: ALLOPURINOL 100 MG TAB PEG SCH ×2 (09:14→21:40)
[2017-02-11] MEDS: RILUZOLE 50 MG PO SCH ×2 (09:14→21:40)
[2017-02-11] MEDS: buPROPion 75 MG TAB PEG SCH (09:14)
[2017-02-11] MEDS: ALPRAZolam 0.25 MG TAB PEG SCH ×3 (09:14→21:40)
[2017-02-11] MEDS: CETIRIZINE (ZyrTEC) 10 MG TAB PEG SCH (09:15)
[2017-02-11] MEDS: OMEGA-3 1050MG CAPSULE PEG SCH ×2 (09:18→21:40)
[2017-02-11] MEDS: VITAMIN D 1,000 INTERNATIONAL UNITS TABLET PEG SCH ×2 (09:18→21:40)
[2017-02-11] MEDS: ASPIRIN 81 MG CHEW TABLET PEG SCH (09:18)
[2017-02-11] MEDS: MAGNESIUM OXIDE 400 MG TAB (MAG-OX) PEG SCH (09:18)
[2017-02-11] MEDS: ENOXAPARIN 40 MG/0.4 ML SYRINGE (J1650) SC SCH (09:19)
[2017-02-11] MEDS: LORazepam 2 MG/ML VIAL (J2060) IV PRN (13:50)
--- NOTE | 2017-02-11 15:26 | IPN ---
DATE: 02/11/2017 Mr. Major has no complaints of chest pain or shortness of breath. Had his percutaneous endoscopic gastrostomy (PEG) tube adjusted yesterday. Tolerating feeds. Temperature 97.1, pulse 107, respiratory rate 20, blood pressure 92/59, 97% on his ventilator. Intake and output notable for a positive fluid balance of 1500. One bowel movement noted. Is awake, appropriately interactive, pleasantly conversant. Breathing is symmetrical and rested. Coarse upper airway sounds. No wheeze. Heart is distant sounding. Normal S1, S2. Is borderline tachycardic. Abdomen soft, doughy, nontender. There is no significant drainage from the PEG site. White cell count 8.9, hemoglobin 7.7. BUN 25, creatinine 0.43. ASSESSMENT: This is a 66-year-old with amyotrophic lateral sclerosis (ALS) with ventilator-dependent associated pneumonia and gastrostomy (G)-tube dysfunction. PLAN: 1. Patient has ventilator-acquired pneumonia, which grew Escherichia (E) coli and pseudomonas. Is on broad-spectrum antibiotics. Is being followed by pulmonary. Greatly appreciate Dr. Lee's assistance and management. 2. Patient has newly changed trach, done by Dr. Porter. Seems to be tolerating this well. 3. Patient has chronic obstructive pulmonary disease (COPD). No evidence of decompensation. 4. Patient has chronic catheter and has grown two bacteria in the urine, which are covered by the antibiotics. 5. Patient has kyphosis, mild degree of restrictive lung disease. 6. Patient has dyslipidemia. 7. Patient has history of gout. 8. Patient has developed anemia. Patient has diabetes and is continued on his diabetic feeds. Plan has been to restart oral feeds. This can be reconsidered during this stay. 9. Patient has chronic constipation. Is having bowel movements. 10. Patient has appropriate deep vein thrombosis (DVT) prophylaxis. 11. Patient is a full code.
[2017-02-11] MEDS: diphenhydrAMINE INJ 50MG/ML VIAL (J1200) IV PRN (17:22)
[2017-02-11] MEDS ORDERED: CALAMINE LOTION 177 ML BTL TOP PRN (21:30)
[2017-02-11] MEDS: PANTOPRAZOLE 40MG INJ (PROTONIX) (C9113) IV SCH (21:39)
[2017-02-11] MEDS: BACLOFEN 10 MG TAB PEG SCH (21:40)
[2017-02-11] MEDS: ATORVASTATIN 20 MG TAB PEG SCH (21:41)
[2017-02-12] VITALS (7 sets, daily range): BP systolic 98–153; BP diastolic 61–74; O2SAT 98
[2017-02-12] MEDS: HumaLOG INSULIN (NovoLOG) PER UNIT SC SCH ×4 (00:57→18:09)
[2017-02-12] MEDS: LORazepam 2 MG/ML VIAL (J2060) IV PRN ×2 (00:58→12:45)
[2017-02-12] MEDS: CEFEPIME HCL 1 GM in D5W 50 ML IV SCH ×2 (01:00→14:52)
[2017-02-12] MEDS: IPRATROPIUM 0.5MG/ALBUTEROL 2.5MG INH SOL UD 3ML (DUONEB)(J7620) NEB SCH ×5 (03:09→20:00)
[2017-02-12 04:45] LABS: MEAN CORPUSCULAR HEMOGLOBIN 26.7 pg (27.0-33.0); MEAN CORPUSCULAR VOLUME 88.8 fl (80.0-96.0); RED CELL DISTRIBUTION WIDTH 15.6 % (11.5-14.5); WHITE BLOOD COUNT 8.8 10^3/uL (4.0-10.0)
[2017-02-12 05:03] LABS: ALBUMIN 1.7 GM/DL (3.2-5.2); ALBUMIN/GLOBULIN RATIO 0.45 (1.00-1.93); ALKALINE PHOSPHATASE 168 U/L (45-117); ALT/SGPT 49 U/L (12-78); ANION GAP 6 MEQ/L (8-16); AST/SGOT 30 U/L (15-37); BILIRUBIN,TOTAL 0.3 MG/DL (0.2-1.0); BLOOD UREA NITROGEN 24 MG/DL (7-18); CALCIUM LEVEL 9.1 MG/DL (8.8-10.2); CARBON DIOXIDE LEVEL 33 MEQ/L (21-32); CHLORIDE LEVEL 105 MEQ/L (98-107); CREATININE FOR GFR 0.41 MG/DL (0.70-1.30); GLOMERULAR FILTRATION RATE > 60.0 (>49); GLUCOSE, FASTING 147 MG/DL (80-110); POTASSIUM SERUM 4.4 MEQ/L (3.5-5.1); SODIUM LEVEL 144 MEQ/L (136-145); TOTAL PROTEIN 5.5 GM/DL (6.4-8.2)
[2017-02-12] MEDS: LEVOTHYROXINE 75MCG TABLET (0.075MG) PEG SCH (06:48)
[2017-02-12] MEDS: TERAZOSIN 5 MG CAP PEG SCH (09:00)
[2017-02-12] MEDS: IPRATROPIUM 0.06% NASAL SPRAY 15 ML (ATROVENT) SCH ×3 (09:00→16:37)
[2017-02-12] MEDS: MULTIVITAMIN/MINERALS LIQUID 15ML ORAL SYRINGE PEG SCH (09:34)
[2017-02-12] MEDS: LevoFLOXacin IV 750 MG in APPROPRIATE DILUENT 1 EA IV SCH (09:34)
[2017-02-12] MEDS: LEVEMIR (INSULIN DETEMIR) 1 UNITS/0.01ML SC SCH (09:35)
[2017-02-12] MEDS: VITAMIN D 1,000 INTERNATIONAL UNITS TABLET PEG SCH ×2 (09:35→20:29)
[2017-02-12] MEDS: ALLOPURINOL 100 MG TAB PEG SCH ×2 (09:35→20:30)
[2017-02-12] MEDS: OMEGA-3 1050MG CAPSULE PEG SCH ×2 (09:35→20:30)
[2017-02-12] MEDS: ENOXAPARIN 40 MG/0.4 ML SYRINGE (J1650) SC SCH (09:35)
[2017-02-12] MEDS: ASPIRIN 81 MG CHEW TABLET PEG SCH (09:35)
[2017-02-12] MEDS: hydrOXYzine 50 MG TAB PEG PRN (09:36)
[2017-02-12] MEDS: ALPRAZolam 0.25 MG TAB PEG SCH ×3 (09:36→20:29)
[2017-02-12] MEDS: RILUZOLE 50 MG PO SCH ×2 (09:36→20:29)
[2017-02-12] MEDS: ASCORBIC ACID 500 MG TAB PEG SCH ×2 (09:36→20:29)
[2017-02-12] MEDS: MAGNESIUM OXIDE 400 MG TAB (MAG-OX) PEG SCH (09:36)
[2017-02-12] MEDS: FOLIC ACID 1 MG TAB PEG SCH (09:37)
[2017-02-12] MEDS: buPROPion 75 MG TAB PEG SCH (09:37)
[2017-02-12] MEDS: FORMOTEROL FUMARATE 20 MCG/2 ML INHALATION SOLUTION (PERFOROMIST) INH SCH ×2 (09:37→20:17)
[2017-02-12] MEDS: FLUTICASONE PROP 0.05% NASAL SPRAY 16 GM (FLONASE) SCH (09:37)
[2017-02-12] MEDS: CETIRIZINE (ZyrTEC) 10 MG TAB PEG SCH (09:37)
[2017-02-12] MEDS: METOPROLOL TART 12.5 MG PER 1/2 TAB PEG SCH ×2 (09:38→20:31)
[2017-02-12] MEDS: ACETAMINOPHEN TAB 650MG DOSE (2X325MG) PEG PRN (11:00)
[2017-02-12] MEDS: diphenhydrAMINE INJ 50MG/ML VIAL (J1200) IV PRN (11:01)
[2017-02-12] MEDS: ALBUTEROL SULFATE 2.5 MG/0.5 ML INH NEB SOLN NEB PRN (15:29)
[2017-02-12] MEDS: PANTOPRAZOLE 40MG INJ (PROTONIX) (C9113) IV SCH (20:28)
[2017-02-12] MEDS: BACLOFEN 10 MG TAB PEG SCH (20:29)
[2017-02-12] MEDS: ATORVASTATIN 20 MG TAB PEG SCH (20:29)
--- NOTE | 2017-02-12 22:49 | IPN ---
DATE: 02/12/2017 Mr. Major has no complaints of pain, chest pain, shortness of breath. He has been tolerating his tube feeds. Temperature 97.8, pulse 95, respiratory rate 19, blood pressure 110/64, 99% on his ventilator. Intake and output notable for a positive fluid balance of 450. One bowel movement thus far today. Weight 72 kg. Body mass index 24. He is awake, appropriately interactive, obviously not verbal but engaged in our interaction. Neck supple. Breathing is symmetrical. Coarse upper airway sounds. Appears not to be in any respiratory distress. Heart is distant sounding, normal S1, S2. Is not tachycardic on my exam. Abdomen soft, doughy, nontender. There is no drainage from around his percutaneous endoscopic gastrostomy (PEG) site. White cell count 8.8, hemoglobin 8.8, platelets of 192. Hemoglobin is up from 7.7. BUN 24, creatinine 0.41. ASSESSMENT: This is a 66-year-old with amyotrophic lateral sclerosis (ALS) and ventilator-dependent pneumonia with gastrostomy (G)-tube dysfunction. PLAN: 1. Patient has ventilator acquired pneumonia. 2. Patient has newly changed trach, done by Dr. Porter, tolerating well. 3. Patient had leaking around his PEG tube, which has been addressed by Dr. Wilkins. He is tolerating his feeds. 4. Patient has chronic obstructive pulmonary disease (COPD). No evidence of decompensation. 5. Patient has chronic urinary catheters growing two bacteria in the urine, which are covered by the current antibiotics. 6. Patient has kyphosis and a suspected mild degree of restrictive lung disease. 7. Patient has dyslipidemia. 8. Patient has gout. 9. Patient has anemia, most likely anemia of chronic disease. Did receive a transfusion of 1 unit of blood during his stay. Stool occult blood continues to be pending. 10. Patient has chronic constipation. Is having bowel movements during his stay. 11. Patient has appropriate deep vein thrombosis (DVT) prophylaxis. 12. Patient is a full code.
[2017-02-13] VITALS (7 sets, daily range): BP systolic 91–124; BP diastolic 56–67; O2SAT 92
[2017-02-13] MEDS: HumaLOG INSULIN (NovoLOG) PER UNIT SC SCH ×4 (00:10→18:04)
[2017-02-13] MEDS: diphenhydrAMINE INJ 50MG/ML VIAL (J1200) IV PRN ×3 (01:04→14:34)
[2017-02-13] MEDS: ACETAMINOPHEN TAB 650MG DOSE (2X325MG) PEG PRN ×4 (01:04→23:04)
[2017-02-13] MEDS: LORazepam 2 MG/ML VIAL (J2060) IV PRN ×3 (01:05→23:04)
[2017-02-13] MEDS: CEFEPIME HCL 1 GM in D5W 50 ML IV SCH ×2 (01:31→13:36)
[2017-02-13 04:33] LABS: MEAN CORPUSCULAR HEMOGLOBIN 27.5 pg (27.0-33.0); MEAN CORPUSCULAR HGB CONC 30.8 g/dl (32.0-36.5); MEAN CORPUSCULAR VOLUME 89.2 fl (80.0-96.0); RED CELL DISTRIBUTION WIDTH 15.3 % (11.5-14.5); WHITE BLOOD COUNT 8.5 10^3/uL (4.0-10.0)
[2017-02-13 04:51] LABS: ALBUMIN 1.6 GM/DL (3.2-5.2); ALBUMIN/GLOBULIN RATIO 0.43 (1.00-1.93); ALKALINE PHOSPHATASE 163 U/L (45-117); ALT/SGPT 42 U/L (12-78); ANION GAP 5 MEQ/L (8-16); AST/SGOT 22 U/L (15-37); BILIRUBIN,TOTAL 0.3 MG/DL (0.2-1.0); BLOOD UREA NITROGEN 27 MG/DL (7-18); CALCIUM LEVEL 8.5 MG/DL (8.8-10.2); CARBON DIOXIDE LEVEL 34 MEQ/L (21-32); CHLORIDE LEVEL 103 MEQ/L (98-107); CREATININE FOR GFR 0.45 MG/DL (0.70-1.30); GLOMERULAR FILTRATION RATE > 60.0 (>49); GLUCOSE, FASTING 158 MG/DL (80-110); POTASSIUM SERUM 4.8 MEQ/L (3.5-5.1); SODIUM LEVEL 142 MEQ/L (136-145); TOTAL PROTEIN 5.3 GM/DL (6.4-8.2)
[2017-02-13] MEDS: LEVOTHYROXINE 75MCG TABLET (0.075MG) PEG SCH (05:00)
[2017-02-13] MEDS: FORMOTEROL FUMARATE 20 MCG/2 ML INHALATION SOLUTION (PERFOROMIST) INH SCH ×2 (07:59→21:04)
[2017-02-13] MEDS: IPRATROPIUM 0.5MG/ALBUTEROL 2.5MG INH SOL UD 3ML (DUONEB)(J7620) NEB SCH ×5 (08:00→23:53)
[2017-02-13] MEDS: LevoFLOXacin IV 750 MG in APPROPRIATE DILUENT 1 EA IV SCH (08:32)
[2017-02-13] MEDS: MAGNESIUM OXIDE 400 MG TAB (MAG-OX) PEG SCH (08:34)
[2017-02-13] MEDS: OMEGA-3 1050MG CAPSULE PEG SCH ×2 (08:34→20:29)
[2017-02-13] MEDS: ENOXAPARIN 40 MG/0.4 ML SYRINGE (J1650) SC SCH (08:34)
[2017-02-13] MEDS: LEVEMIR (INSULIN DETEMIR) 1 UNITS/0.01ML SC SCH (08:34)
[2017-02-13] MEDS: FOLIC ACID 1 MG TAB PEG SCH (08:34)
[2017-02-13] MEDS: MULTIVITAMIN/MINERALS LIQUID 15ML ORAL SYRINGE PEG SCH (08:34)
[2017-02-13] MEDS: ASPIRIN 81 MG CHEW TABLET PEG SCH (08:35)
[2017-02-13] MEDS: CETIRIZINE (ZyrTEC) 10 MG TAB PEG SCH (08:36)
[2017-02-13] MEDS: ALLOPURINOL 100 MG TAB PEG SCH ×2 (08:36→20:29)
[2017-02-13] MEDS: TERAZOSIN 5 MG CAP PEG SCH (08:36)
[2017-02-13] MEDS: VITAMIN D 1,000 INTERNATIONAL UNITS TABLET PEG SCH ×2 (08:36→20:29)
[2017-02-13] MEDS: RILUZOLE 50 MG PO SCH ×2 (08:37→20:29)
[2017-02-13] MEDS: METOPROLOL TART 12.5 MG PER 1/2 TAB PEG SCH ×2 (08:37→20:29)
[2017-02-13] MEDS: ASCORBIC ACID 500 MG TAB PEG SCH ×2 (08:37→20:29)
[2017-02-13] MEDS: buPROPion 75 MG TAB PEG SCH (08:37)
[2017-02-13] MEDS: FLUTICASONE PROP 0.05% NASAL SPRAY 16 GM (FLONASE) SCH (08:38)
[2017-02-13] MEDS: ALPRAZolam 0.25 MG TAB PEG SCH ×3 (08:40→20:29)
[2017-02-13] MEDS: IPRATROPIUM 0.06% NASAL SPRAY 15 ML (ATROVENT) SCH ×3 (09:00→21:00)
--- NOTE | 2017-02-13 11:30 | REP ---
Portable chest x-ray: Sitting AP view. History: Pneumonia. Comparison study: February 10, 2017. Findings: Tracheostomy tube remains in good position. Median sternotomy wires and EKG electrodes are seen. Pleural opacity is seen persisting in both bases consistent with pleural effusions. This appears more prominent on the left and may have progressed bilaterally. Perihilar opacity is seen on the left consistent with infiltrate. Impression: Left perihilar infiltrate. Bilateral effusions somewhat increased. Signed by Lionel Morel MD 02/13/2017 09:38 A
--- NOTE | 2017-02-13 11:32 | IPN ---
DATE: 02/13/2017 Mr. Major is feeling well this morning. He is not complaining of pain, chest pain, or shortness of breath. Tolerating a diet. He has had less secretions than her normally has at home. Temperature is 98.8, pulse 71, respiratory rate 17, blood pressure was recorded as 91/56, repeated 127/75, 99% on his ventilator. Negative fluid status of -265, two bowel movements yesterday, awake, appropriately interactive. Appears comfortable. Breathing is symmetrical. Upper airway sounds throughout. Appears rested in no acute distress. Heart is distant sounding. Normal S1 and S2. Abdomen is soft, doughy, nontender. There is some scant drainage from his PEG site. No lower extremity edema. White count 8.5, hemoglobin 8.1, platelets of 189, BUN 27, creatinine 0.45. Stool occult blood is pending. My assessment is as follows: 66-year-old with ALS and ventilator dependent pneumonia with a G tube dysfunction. Plan is as follows: 1. Patient has ventilator acquired pneumonia. Repeat x-ray today shows continued pneumonia. I have discussed this case in person with Dr. Khan who will see the patient in consultation. I am interested in her input as to the length and type of antibiotic therapy as the patient has grown pseudomonas, which is relatively sensitive. 2. Patient had new changed trach done by Dr. Porter. He is tolerating that well. 3. Patient has had leakage around his PEG tube. Scan leakage noted today, which is new. Will continue to monitor. If we need more assistance, can reconsult Dr. Wilkins tomorrow. 4. Patient has chronic obstructive pulmonary disease (COPD). No evidence of decompensation. May replace Carter catheter tomorrow. The patient's has requested an #18 Welsh coude. 5. Patient has kyphosis and suspected mild degree of restrictive lung disease. 6. Patient has dyslipidemia. 7. Patient has gout. 8. Patient has anemia, most likely anemia of chronic disease. Stool occult blood is now pending. He has received 1 unit of blood during his stay. No goal for transfusion today. 9. Patient has deep vein thrombosis (DVT) prophylaxis. 10. Patient is a FULL CODE.
--- NOTE | 2017-02-13 11:32 | CR ---
DATE OF SERVICE: 02/13/2017 I was requested to see the patient for abnormal chest x-ray. SUBJECTIVE: Mr. Palencia shakes his head yes that he is feeling better than when he came in. He indicates that his breathing is so-so. According to nursing staff, mucus is improved, white count has decreased; however, chest x-ray this morning has not significantly improved. Sputum cultures have grown E-coli resistant to fluoroquinolones and Pseudomonas which is pansensitive. The patient has been on Cefepime and Levaquin since the . Recommendations for further antibiotic therapy were requested by the primary team. The patient is having bowel movements without any signs of diarrhea. He remains on SIMV 18/. His last arterial blood gas was adequate on these settings. The patient has had no fevers. Percutaneous endoscopic gastrostomy (PEG) tube appears to be functioning at this point in time. PHYSICAL EXAMINATION: Temperature is 98.8, pulse is 112, respiratory rate is 18 , blood pressure is 127/75, oxygen saturations 92% on a 4 liter bleed in through the SIMV. General: The patient is resting comfortably in bed. He is able to stable shake his head yes or no. He mouths words at times. HEENT: Sclerae anicteric. Pupils equal and react to light. Mucous membranes are moist. Neck is supple. Dressing surrounding his trach. No evidence of erythema and no significant mucus secretions from the trach at this point in time. Cardiac: Regular, S1, S2. Without audible murmur or gallop. No elevated jugular venous pulse (JVP). He does have pedal edema without sacral edema. Pulmonary: Decreased breath sounds at the bases, otherwise clear to auscultation. Without rales, rhonchi or wheezes. No dullness to percussion. Abdomen: Soft, nontender, nondistended. Left upper quadrant PEG with minimal yellow exudate that was cleared. No significant erythema. Extremities: No cyanosis or clubbing. There is pedal edema. Chronic muscular weakness noted. Arterial blood gas showed a pH of 7.47, pCO2 of 50, pO2 of 81. White blood cell count is 8.5, hemoglobin 8.1, hematocrit 26.3, and platelet count 189. Sodium is 142, potassium 4.8, chloride 103, bicarb of 34, BUN 27, creatinine 0.45, with albumin of 1.6. X-ray shows some blunting of the right costophrenic angle. It is a poor film and he is significantly rotated to the left. The left costophrenic angle is cut off. I therefore performed bedside ultrasound of his right chest. There was no significant pleural fluid collection for drainage. Lung hepatization was present. IMPRESSION: 1. Abnormal x-ray likely secondary to recent pneumonia. Ultrasound showed some hepatization of the lung likely from infiltrate, but no significant pleural effusion. Would continue antibiotic therapy. The patient has received 6 days of antibiotic so far in the form of Levaquin and Cefepime. Would recommend a total of 7 days for coverage of the E. Coli pneumonia 10-14 for coverage of Pseudomonas. Due to the fact that the patient has had a decreased white count, decrease in sputum production and is clinically improved despite chest x-ray findings, I believe he can be converted to a liquid Pseudomonal agent such as Levaquin. Keep in mind that if he becomes ill after switching to this agent, his E-coli has been known to be resistant to fluoroquinolones and would adjust antibiotic therapy appropriately at that point in time. 2. Severe protein malnourishment likely from some increased volume during his stay and decreased tube feeds. Would recommend nutrition counseling and continued tube feeds with protein supplementation. 3. Chronic respiratory failure secondary to neurologic disease. Currently appears to be ventilating well on his current settings. Would not change his settings at this point in time. [facility] He should have continued follow up with a head of english there. SIMONA
[2017-02-13] MEDS: ALBUTEROL SULFATE 2.5 MG/0.5 ML INH NEB SOLN NEB PRN (13:43)
[2017-02-13] MEDS: PANTOPRAZOLE 40MG INJ (PROTONIX) (C9113) IV SCH (20:22)
[2017-02-13] MEDS: BACLOFEN 10 MG TAB PEG SCH (20:28)
[2017-02-13] MEDS: ATORVASTATIN 20 MG TAB PEG SCH (20:28)
[2017-02-13] MEDS: NYSTATIN 100,000 UNITS/GM TOPICAL PWD 15 GM TOP SCH (20:30)
[2017-02-14] VITALS (35 sets, daily range): BP systolic 80–186; BP diastolic 44–84; O2SAT 97
[2017-02-14] MEDS: HumaLOG INSULIN (NovoLOG) PER UNIT SC SCH ×5 (00:12→23:51)
[2017-02-14] MEDS: IPRATROPIUM 0.06% NASAL SPRAY 15 ML (ATROVENT) SCH ×4 (00:14→21:35)
[2017-02-14] MEDS: CEFEPIME HCL 1 GM in D5W 50 ML IV SCH ×2 (01:51→13:43)
[2017-02-14] MEDS: IPRATROPIUM 0.5MG/ALBUTEROL 2.5MG INH SOL UD 3ML (DUONEB)(J7620) NEB SCH ×2 (04:02→08:00)
[2017-02-14 05:18] LABS: MEAN CORPUSCULAR HEMOGLOBIN 26.6 pg (27.0-33.0); MEAN CORPUSCULAR VOLUME 88.4 fl (80.0-96.0); RED CELL DISTRIBUTION WIDTH 15.3 % (11.5-14.5); WHITE BLOOD COUNT 8.6 10^3/uL (4.0-10.0)
[2017-02-14 05:47] LABS: ALBUMIN 1.8 GM/DL (3.2-5.2); ALBUMIN/GLOBULIN RATIO 0.46 (1.00-1.93); ALKALINE PHOSPHATASE 183 U/L (45-117); ALT/SGPT 39 U/L (12-78); ANION GAP 7 MEQ/L (8-16); AST/SGOT 18 U/L (15-37); BILIRUBIN,TOTAL 0.2 MG/DL (0.2-1.0); BLOOD UREA NITROGEN 27 MG/DL (7-18); CALCIUM LEVEL 8.9 MG/DL (8.8-10.2); CARBON DIOXIDE LEVEL 33 MEQ/L (21-32); CHLORIDE LEVEL 102 MEQ/L (98-107); CREATININE FOR GFR 0.58 MG/DL (0.70-1.30); GLOMERULAR FILTRATION RATE > 60.0 (>49); GLUCOSE, FASTING 176 MG/DL (80-110); POTASSIUM SERUM 4.7 MEQ/L (3.5-5.1); SODIUM LEVEL 142 MEQ/L (136-145); TOTAL PROTEIN 5.7 GM/DL (6.4-8.2)
[2017-02-14] MEDS: LEVOTHYROXINE 75MCG TABLET (0.075MG) PEG SCH (05:57)
--- NOTE | 2017-02-14 07:28 | REP ---
Clinical: Follow up pneumonia. Comparison: 02/13/2017. Findings: Bilateral mid to lower lobe infiltrates (left greater than right) and suspected layering effusions are essentially unchanged compared to prior examination. Cardiac silhouette is stable and within normal limits. Tracheostomy overlies the airway. Evidence for prior sternotomy. No pneumothorax. Skeletal structures intact. Impression: Bilateral infiltrates and pleural effusions essentially unchanged from prior examination. Signed by Josh Saeed MD 02/14/2017 07:20 A
[2017-02-14] MEDS: FORMOTEROL FUMARATE 20 MCG/2 ML INHALATION SOLUTION (PERFOROMIST) INH SCH ×2 (08:29→20:18)
[2017-02-14] MEDS: FLUTICASONE PROP 0.05% NASAL SPRAY 16 GM (FLONASE) SCH (09:00)
[2017-02-14] MEDS: NYSTATIN 100,000 UNITS/GM TOPICAL PWD 15 GM TOP SCH ×2 (09:00→21:00)
[2017-02-14] MEDS: ENOXAPARIN 40 MG/0.4 ML SYRINGE (J1650) SC SCH (09:44)
[2017-02-14] MEDS: LEVEMIR (INSULIN DETEMIR) 1 UNITS/0.01ML SC SCH (09:45)
[2017-02-14] MEDS: METOPROLOL TART 12.5 MG PER 1/2 TAB PEG SCH ×2 (09:46→21:07)
[2017-02-14] MEDS: VITAMIN D 1,000 INTERNATIONAL UNITS TABLET PEG SCH ×2 (09:46→21:06)
[2017-02-14] MEDS: ASCORBIC ACID 500 MG TAB PEG SCH ×2 (09:46→21:06)
[2017-02-14] MEDS: MAGNESIUM OXIDE 400 MG TAB (MAG-OX) PEG SCH (09:47)
[2017-02-14] MEDS: OMEGA-3 1050MG CAPSULE PEG SCH ×2 (09:47→21:06)
[2017-02-14] MEDS: CETIRIZINE (ZyrTEC) 10 MG TAB PEG SCH (09:47)
[2017-02-14] MEDS: ALPRAZolam 0.25 MG TAB PEG SCH ×2 (09:47→15:35)
[2017-02-14] MEDS: ALLOPURINOL 100 MG TAB PEG SCH ×2 (09:47→21:06)
[2017-02-14] MEDS: ASPIRIN 81 MG CHEW TABLET PEG SCH (09:47)
[2017-02-14] MEDS: FOLIC ACID 1 MG TAB PEG SCH (09:51)
[2017-02-14] MEDS: diphenhydrAMINE INJ 50MG/ML VIAL (J1200) IV PRN (10:18)
[2017-02-14] MEDS ORDERED: MIDAZOLAM INJ 2 MG/2 ML VIAL (J2250) As Ordered ONE ×3 (11:21→11:46)
[2017-02-14] MEDS ORDERED: LIDOCAINE 1% MDV 20ML VIAL As Ordered ONE (11:22)
--- NOTE | 2017-02-14 11:49 | REP ---
PORTABLE CHEST: AP portable view of the chest is performed and compared to a prior study of 02/14/2017. The patient is rotated, which limits the exam. Bilateral infiltrates have not definitely changed. Tracheostomy tube is again noted. The heart size is not well evaluated. There are multiple sternal wires and mediastinal clips present. Signed by Sean Damico MD 02/15/2017 07:52 P
[2017-02-14] MEDS ORDERED: PROPOFOL 1,000 MG/100 ML VIAL As Ordered ONE (11:50)
[2017-02-14] MEDS ORDERED: PROPOFOL 200 MG/20 ML VIAL IV PRN (12:30)
[2017-02-14] MEDS ORDERED: MIDAZOLAM INJ 2 MG/2 ML VIAL (J2250) IV SCH (12:30)
--- NOTE | 2017-02-14 12:46 | RO ---
DATE OF PROCEDURE: 02/14/2017 PREOPERATIVE DIAGNOSIS: Mal clearance of secretions, respiratory distress. POSTPROCEDURE DIAGNOSIS: Mucus plugging. PROCEDURE Bronchoscopy. SURGEON: Dr. Narendra Khan. INSTITUTION DIRECTOR: None. ANESTHESIA:see sedation below ESTIMATED BLOOD LOSS:none PROCEDURE: Patient nodded head yes for his verbal consent. Procedure was deemed emergent, therefore no written consent was obtained. SEDATION: 10 mg of Versed and then started propofol, after Versed was not managing his sedation, at 5 mcg/kg. DESCRIPTION OF PROCEDURE: The patient was urgently brought back to the intensive care unit room 7. The P190 bronchoscope was brought up from the OR. Cetacaine spray was used to anesthetize the airway and the bronchoscope. Versed was used for conscious sedation. After 10 mg of Versed, the patient still was awake expressing discomfort, therefore I used propofol. He was on mechanical ventilation at that point in time. After time-out was performed with two patient identifiers identifying correct site, correct procedure, I advanced the bronchoscope to the trachea. There was copious amounts of thick sputum. The sputum blocked the channel of the bronchoscope numerous times. The entire right bronchus intermedius was blocked with thick secretions. These were suctioned. Right middle lobe medial segment was the most impacted. Saline was used to facilitate mobilization of the mucus. I then performed bronchoalveolar lavage of the right lower lobe. All airways were cleared of mucus on the right. I then advanced into the left. Surprisingly the left lower lobe was also impacted with mucus. I suctioned out these airways. I then went back to the right. Again there was more mucus on the right and therefore this was suctioned. After all airways were cleared RB 1-10, LB 1-10 was inspected without ending any endobronchial lesions. In the mid trachea membranous portion, there is a pale necrotic area with an area of significant yellow thick mucus. I suctioned the mucus and sprayed the area with saline. There did not appear to be any disruption of the membrane. No posterior connection. No air was seen. I then removed the bronchoscope from the trach, lubricated the right nares and advanced the scope through the right nares into the posterior pharynx. The vocal cords were present and appeared normal. I advanced the scope through the vocal cords to view the trachea which was in good position. There was minimal granulomatous tissue around the posterior trachea approximately 4-o'clock position. No evidence of acute hemorrhage. Balloon was inflated. There did not appear to be any problem with the balloon. The bronchoscope was then removed. I again advanced the bronchoscope into the airways below through the trach to ensure clearance of mucus. Minimal mucus remained which was suctioned. The bronchoscope was removed. No observed complications. Post chest x-ray is pending. Propofol drip was stopped after this procedure. SIMONA
[2017-02-14] MEDS: ALBUTEROL SULFATE 2.5 MG/0.5 ML INH NEB SOLN NEB SCH ×4 (12:56→23:33)
[2017-02-14] MEDS: ACETYLCYSTEINE 20% 4 ML VIAL (200MG/ML) INH SCH ×2 (12:56→20:18)
[2017-02-14] MEDS: MULTIVITAMIN/MINERALS LIQUID 15ML ORAL SYRINGE PEG SCH (13:40)
--- NOTE | 2017-02-14 13:40 | CCN ---
DATE: 02/14/2017 Critical care time was 1 hour. This excludes all procedures. HISTORY OF PRESENT ILLNESS: I was urgently called to the patient's bedside for respiratory distress. Apparently the patient had three beat run of ventricular tachycardia, had minimal loss of consciousness and was complaining about respiratory distress. On his writing board he wrote leak. He felt as if he was not getting enough air in. Mr. Major is a well-known 66-year-old male with ALS on chronic mechanical ventilation hospitalized currently for pneumonia, grew both E-coli and Pseudomonas. He has been on antibiotics. Upon arrival to the room, there was no good air entry bilaterally. Minimal tidal volumes with mechanical ventilation. There was some question whether the trache was functioning properly or there was mechanical obstruction. I immediately rushed him back to the intensive care unit and performed bronchoscopy on inspection of the trache, the trache was half-way house an the balloon was quite inflated. I deflated the balloon advanced the trache and then reinflated it to a proper pressure. Upon advancing the bronchoscope into the airway, there were significant mucus plugging as outlined in my bronchoscopy note with total obstruction of the bronchus intermedius and left lower lobe. All areas was suctioned. The patient had improved chest x-ray after bronchoscopy. Portable chest x-ray did show obliteration of the right lower and right middle lobe with significant air and the stomach. After bronchoscopy the diaphragm is fairly sharp on the right. There is minimal increased haziness on the left with air bronchograms. There is less air in the stomach and the trache appears in better position without a significantly enlarged balloon.. The patient did receive propofol during the procedure. I increased his PEEP to 10 to promote lung aeration. I therefore placed him on our mechanical ventilators rather than his home mechanical ventilator to facilitate changes and mechanical ventilation. Arterial blood gas is pending. PHYSICAL EXAMINATION: Initially awake, diaphoretic clearly in respiratory distress. HEENT: Sclerae clear anicteric. Pupils equal, react to light. Mucous membranes moist. He had significant mucus around his trache site. Copious amounts of thick clear mucus with minimal occasional minimal heme was around the trache site. Neck was otherwise supple. Carotids were normal. Jugular venous pulse was not elevated. Lymph: No cervical, supraclavicular, or axillary adenopathy. Cardiac: Tachycardiac S1, S2 without audible murmur, rub or gallop noted. Minimal lower extremity edema. Pulmonary: Breath sounds were very poor air entry bilaterally. No wheeze. No rhonchi. Abdomen: Soft, nontender, scaphoid. PEG tube in left upper quadrant. No hernias or mass. Extremities: No cyanosis, clubbing or edema. Skin is pale without rash, jaundice or bruising. IMPRESSION: Acute respiratory distress from mucus plugging. Due to the fact that he had such a significant event, would continue to keep the patient on dual antibiotic coverage for Pseudomonas treat for a duration of 14 days in total. Monitor for mucus plugging with daily x-rays and symptoms continue to keep the trache straps fairly tight to avoid mobilization of the trache. I have added Mucomyst to his regimen to help with breaking down proteinaceous mucus. I have discontinued his Atrovent and placed him on Albuterol only in case Atrovent is causing any drying of the airways. Will continue to closely monitor him in the ICU because of the severity of his respiratory distress. He did not have any prolonged episodes of hypoxia. The lowest oxygen saturation measured was 87%, which was short-lived less than 1 minute.
[2017-02-14] MEDS: RILUZOLE 50 MG PO SCH ×2 (13:41→21:07)
[2017-02-14] MEDS: TERAZOSIN 5 MG CAP PEG SCH (13:41)
[2017-02-14] MEDS: buPROPion 75 MG TAB PEG SCH (13:42)
[2017-02-14] MEDS: LevoFLOXacin IV 750 MG in APPROPRIATE DILUENT 1 EA IV SCH (13:43)
[2017-02-14 14:14] LABS: ABG BASE EXCESS 7.6 (-2.0-2.0); ABG HCO3 33.7 MEQ/L (22.0-26.0); ABG PARTIAL PRESSURE CO2 56.6 mmHg (35.0-45.0); ABG PARTIAL PRESSURE O2 106.1 mmHg (75.0-100.0); ABG STANDARD HCO3 31.4 MEQ/L (22.0-26.0); ABG TOTAL CO2 35.5 MEQ/L (23.0-31.0); ABG pH (ARTERIAL) 7.393 UNITS (7.350-7.450)
--- NOTE | 2017-02-14 14:41 | REP ---
PORTABLE CHEST, ONE VIEW: HISTORY: Respiratory distress. COMPARISON: 11:16 a.m., 02/14/2017 Bilateral infiltrates are present unchanged compared to the previous study. The heart is normal in size. The pulmonary vasculature is normal in appearance. A tracheostomy is present. IMPRESSION: Bilateral infiltrates unchanged compared to the previous study. Signed by Nuno Clark MD 02/14/2017 02:45 P
--- NOTE | 2017-02-14 15:41 | IPN ---
DATE: 02/14/2017 Mr. Major was feeling well this morning with plans for going home. No complaints of pain, chest pain, shortness of breath. He did have his Carter catheter changed. Unfortunately, he went on to develop shortness of breath. Dr. Khan was called to the bedside. He was taken to the intensive care unit (ICU) and had bronchoscopy. Upon my evaluation this morning, temperature was 98.5, pulse 78, respiratory rate 18, blood pressure 116/92, 91% on his ventilator. Intake and output notable for a negative fluid balance of -370, one bowel movement noted yesterday. He was awake, appropriately interactive, was at bedside. Neck supple. Breathing symmetrical. Heart distant sounding. Breathing diminished, but rested. Abdomen soft, doughy, nontender. White cell count 8.6, hemoglobin 8.5, platelets of 212. BUN 27, creatinine 0.58. My assessment is as follows: This is a 66-year-old with amyotrophic lateral sclerosis (ALS) and ventilator dependent pneumonia now with mucus plugging who presented with gastrostomy (G) tube dysfunction. Plan is as follows: 1. The patient has ventilator associated pneumonia and mucus plugging and is being followed by Dr. Khan. We have discussed this patient in person. He underwent bronchoscopy today. The plan is to continue dual coverage with antibiotics. Sputum is pending. 2. The patient had trach change done by Dr. Porter. Positioning of trach may have been slightly dislodged or slightly immobilized. 3. The patient had leaking around his percutaneous endoscopic gastrostomy (PEG) tube site. Earlier in his stay, Dr. Wilkins assisted with tightening that up. 4. The patient has possible urinary tract infection, had a Carter catheter replaced just today. 5. The patient has kyphosis with possible mild degree of restrictive lung disease. 6. The patient has dyslipidemia. 7. The patient has gout. 8. The patient has anemia which is most likely anemia of chronic disease. He did receive one unit of packed red blood cells during his stay. 9. The patient has chronic obstructive pulmonary disease (COPD). No evidence of decompensation. 10. The patient is a FULL CODE. 11. The patient's family was at bedside.
[2017-02-14] MEDS ORDERED: ALPRAZolam 0.25 MG TAB PEG SCH (16:00)
[2017-02-14] MEDS ORDERED: ALPRAZolam 0.5 MG TAB PO SCH (16:00)
[2017-02-14] MEDS: ALBUTEROL SULFATE 2.5 MG/0.5 ML INH NEB SOLN NEB PRN (16:42)
[2017-02-14] MEDS: BACLOFEN 10 MG TAB PEG SCH (21:06)
[2017-02-14] MEDS: ATORVASTATIN 20 MG TAB PEG SCH (21:06)
[2017-02-14] MEDS: ACETAMINOPHEN TAB 650MG DOSE (2X325MG) PEG PRN (21:07)
[2017-02-14] MEDS: ALPRAZolam 0.5 MG TAB PEG SCH (21:07)
[2017-02-14] MEDS: PANTOPRAZOLE 40MG INJ (PROTONIX) (C9113) IV SCH (21:08)
[2017-02-15] MEDS: CEFEPIME HCL 1 GM in D5W 50 ML IV SCH ×2 (01:25→13:45)
[2017-02-15] MEDS: ALBUTEROL SULFATE 2.5 MG/0.5 ML INH NEB SOLN NEB SCH ×5 (03:07→20:00)
[2017-02-15 04:00] VITALS: BP 108/58
[2017-02-15] MEDS: LORazepam 2 MG/ML VIAL (J2060) IV PRN ×2 (04:33→14:24)
[2017-02-15 04:34] LABS: RED CELL DISTRIBUTION WIDTH 15.2 % (11.5-14.5); WHITE BLOOD COUNT 8.8 10^3/uL (4.0-10.0)
[2017-02-15 05:00] LABS: ALKALINE PHOSPHATASE 146 U/L (45-117); ALT/SGPT 33 U/L (12-78); AST/SGOT 12 U/L (15-37); BILIRUBIN,TOTAL 0.3 MG/DL (0.2-1.0); CALCIUM LEVEL 8.7 MG/DL (8.8-10.2); CARBON DIOXIDE LEVEL 33 MEQ/L (21-32); CHLORIDE LEVEL 101 MEQ/L (98-107); CREATININE FOR GFR 0.68 MG/DL (0.70-1.30); GLUCOSE, FASTING 145 MG/DL (80-110); POTASSIUM SERUM 4.4 MEQ/L (3.5-5.1); TOTAL PROTEIN 5.7 GM/DL (6.4-8.2)
[2017-02-15 05:13] LABS: BLOOD UREA NITROGEN 27 MG/DL (7-18)
[2017-02-15] MEDS: LEVOTHYROXINE 75MCG TABLET (0.075MG) PEG SCH (05:47)
[2017-02-15] MEDS: HumaLOG INSULIN (NovoLOG) PER UNIT SC SCH ×3 (05:47→17:15)
[2017-02-15] MEDS: ACETYLCYSTEINE 20% 4 ML VIAL (200MG/ML) INH SCH ×2 (07:54→20:18)
[2017-02-15] MEDS: FORMOTEROL FUMARATE 20 MCG/2 ML INHALATION SOLUTION (PERFOROMIST) INH SCH ×2 (07:54→20:18)
[2017-02-15 08:00] VITALS: BP 110/63
[2017-02-15 08:18] LABS: ALBUMIN 1.9 GM/DL (3.2-5.2); ANION GAP 6 MEQ/L (8-16); SODIUM LEVEL 140 MEQ/L (136-145)
[2017-02-15] MEDS: METOPROLOL TART 12.5 MG PER 1/2 TAB PEG SCH ×2 (09:00→21:21)
--- NOTE | 2017-02-15 09:18 | IPNPDOC ---
Text Note Date of Service The patient was seen on 02/15/17. NOTE Subjective: Patient seen and examined at bedside. No new medical complaints this morning. He is anxious to return home. Objective: General: NAD, lying comfortably in bed HEENT: NC/AT, trach in place Lungs: diminished breath sounds Heart: +S1S2, RRR Abd: soft, NT, +BS, PEG in place, area C/D/I Ext: no edema A/P: This is a 66-year-old with amyotrophic lateral sclerosis (ALS) and ventilator dependent pneumonia now with mucus plugging who presented with gastrostomy (G) tube dysfunction. 1. VAP - complicated with mucus plugging - s/p bronchoscopy - continue dual coverage antimicrobial therapy - sputum culture pending - follow as per pulmo - assistance appreciated 2. The patient had trach change done by Dr. Porter. Positioning of trach may have been slightly dislodged or slightly immobilized. 3. The patient had leaking around his percutaneous endoscopic gastrostomy (PEG) tube site. Earlier in his stay, Dr. Wilkins assisted with tightening that up. 4. The patient has possible urinary tract infection, had a Carter catheter replaced yesterday. 5. The patient has kyphosis with possible mild degree of restrictive lung disease. 6. The patient has dyslipidemia. 7. The patient has gout. 8. The patient has anemia which is most likely anemia of chronic disease. He did receive one unit of packed red blood cells during his stay. 9. The patient has chronic obstructive pulmonary disease (COPD). No evidence of decompensation. 10. The patient is a FULL CODE. 11. The patient's was at bedside. VS,Cori, I+O VS, Cori, I+O Laboratory Tests 02/15/17 04:25 Red Blood Count 3.11 L, Mean Corpuscular Volume 90.0, Mean Corpuscular Hemoglobin 27.0, Mean Corpuscular Hemoglobin Concent 30.0 L, Red Cell Distribution Width 15.2 H, Calcium Level 8.7 L, Aspartate Amino Transf (AST/SGOT ) 12 L, Alanine Aminotransferase (ALT/SGPT) 33, Alkaline Phosphatase 146 H, Total Bilirubin 0.3, Total Protein 5.7 L, Albumin 1.9 L Vital Signs Date Time Temp Pulse Resp B/P (MAP) Pulse Ox O2 Delivery O2 Flow Rate FiO2 02/15/17 04:00 98.6 93 20 108/58 (75) 96 Ventilator 40 02/13/17 08:00 4.0 LUIS KHAN MD Feb 15, 2017 09:18
[2017-02-15] MEDS: buPROPion 75 MG TAB PEG SCH (09:27)
[2017-02-15] MEDS: ASCORBIC ACID 500 MG TAB PEG SCH ×2 (09:27→21:22)
[2017-02-15] MEDS: MAGNESIUM OXIDE 400 MG TAB (MAG-OX) PEG SCH (09:27)
[2017-02-15] MEDS: RILUZOLE 50 MG PO SCH ×2 (09:27→21:21)
[2017-02-15] MEDS: VITAMIN D 1,000 INTERNATIONAL UNITS TABLET PEG SCH ×2 (09:27→21:21)
[2017-02-15] MEDS: ASPIRIN 81 MG CHEW TABLET PEG SCH (09:27)
[2017-02-15] MEDS: ALPRAZolam 0.5 MG TAB PEG SCH ×3 (09:27→21:22)
[2017-02-15] MEDS: ALLOPURINOL 100 MG TAB PEG SCH ×2 (09:28→21:22)
[2017-02-15] MEDS: FOLIC ACID 1 MG TAB PEG SCH (09:28)
[2017-02-15] MEDS: CETIRIZINE (ZyrTEC) 10 MG TAB PEG SCH (09:28)
[2017-02-15] MEDS: TERAZOSIN 5 MG CAP PEG SCH (09:28)
[2017-02-15] MEDS: LEVEMIR (INSULIN DETEMIR) 1 UNITS/0.01ML SC SCH (09:29)
[2017-02-15] MEDS: ENOXAPARIN 40 MG/0.4 ML SYRINGE (J1650) SC SCH (09:29)
[2017-02-15] MEDS: MULTIVITAMIN/MINERALS LIQUID 15ML ORAL SYRINGE PEG SCH (09:29)
[2017-02-15] MEDS: IPRATROPIUM 0.06% NASAL SPRAY 15 ML (ATROVENT) SCH ×3 (09:30→21:22)
[2017-02-15] MEDS: OMEGA-3 1050MG CAPSULE PEG SCH ×2 (09:30→21:22)
[2017-02-15] MEDS: LevoFLOXacin IV 750 MG in APPROPRIATE DILUENT 1 EA IV SCH (09:30)
[2017-02-15] MEDS: FLUTICASONE PROP 0.05% NASAL SPRAY 16 GM (FLONASE) SCH (09:30)
[2017-02-15] MEDS: NYSTATIN 100,000 UNITS/GM TOPICAL PWD 15 GM TOP SCH ×2 (09:31→21:23)
[2017-02-15 12:00] VITALS: BP 117/56
[2017-02-15 16:00] VITALS: BP 137/77
--- NOTE | 2017-02-15 16:43 | REP ---
PORTABLE CHEST: AP portable view of the chest was performed and compared to prior study of 02/14/2017. Tracheostomy tube is present. Right inferior infiltrate and left lung infiltrate appear improved. Heart does not appear to be significantly enlarged. Multiple sternal wires are present. IMPRESSION: Improved bilateral infiltrates. Signed by Sean Damico MD 02/15/2017 08:03 P
[2017-02-15 20:23] VITALS: O2SAT 96
[2017-02-15 21:00] VITALS: BP 124/68
[2017-02-15] MEDS: ACETAMINOPHEN TAB 650MG DOSE (2X325MG) PEG PRN (21:21)
[2017-02-15] MEDS: PANTOPRAZOLE 40MG INJ (PROTONIX) (C9113) IV SCH (21:22)
[2017-02-15] MEDS: ATORVASTATIN 20 MG TAB PEG SCH (21:22)
[2017-02-15] MEDS: BACLOFEN 10 MG TAB PEG SCH (21:22)
[2017-02-16] VITALS (7 sets, daily range): BP systolic 103–119; BP diastolic 58–68; O2SAT 98
[2017-02-16] MEDS: HumaLOG INSULIN (NovoLOG) PER UNIT SC SCH ×2 (00:07→05:49)
[2017-02-16] MEDS: ALBUTEROL SULFATE 2.5 MG/0.5 ML INH NEB SOLN NEB SCH ×3 (00:21→07:53)
[2017-02-16] MEDS: CEFEPIME HCL 1 GM in D5W 50 ML IV SCH (01:43)
[2017-02-16] MEDS: LORazepam 2 MG/ML VIAL (J2060) IV PRN (01:43)
[2017-02-16 05:19] LABS: ANION GAP 4 MEQ/L (8-16); BLOOD UREA NITROGEN 24 MG/DL (7-18); CALCIUM LEVEL 9.1 MG/DL (8.8-10.2); CARBON DIOXIDE LEVEL 34 MEQ/L (21-32); CHLORIDE LEVEL 101 MEQ/L (98-107); GLOMERULAR FILTRATION RATE > 60.0 (>49); GLUCOSE, FASTING 212 MG/DL (80-110); POTASSIUM SERUM 4.6 MEQ/L (3.5-5.1); SODIUM LEVEL 139 MEQ/L (136-145)
[2017-02-16] MEDS: LEVOTHYROXINE 75MCG TABLET (0.075MG) PEG SCH (05:49)
[2017-02-16] MEDS: ACETYLCYSTEINE 20% 4 ML VIAL (200MG/ML) INH SCH (07:53)
[2017-02-16] MEDS: FORMOTEROL FUMARATE 20 MCG/2 ML INHALATION SOLUTION (PERFOROMIST) INH SCH (07:53)
[2017-02-16] MEDS: OMEGA-3 1050MG CAPSULE PEG SCH (08:10)
[2017-02-16] MEDS: buPROPion 75 MG TAB PEG SCH (08:10)
[2017-02-16] MEDS: CETIRIZINE (ZyrTEC) 10 MG TAB PEG SCH (08:11)
[2017-02-16] MEDS: TERAZOSIN 5 MG CAP PEG SCH (08:11)
[2017-02-16] MEDS: ALLOPURINOL 100 MG TAB PEG SCH (08:11)
[2017-02-16] MEDS: ASCORBIC ACID 500 MG TAB PEG SCH (08:12)
[2017-02-16] MEDS: METOPROLOL TART 12.5 MG PER 1/2 TAB PEG SCH (08:12)
[2017-02-16] MEDS: MAGNESIUM OXIDE 400 MG TAB (MAG-OX) PEG SCH (08:12)
[2017-02-16] MEDS: RILUZOLE 50 MG PO SCH (08:12)
[2017-02-16] MEDS: FOLIC ACID 1 MG TAB PEG SCH (08:12)
[2017-02-16] MEDS: ALPRAZolam 0.5 MG TAB PEG SCH (08:12)
[2017-02-16] MEDS: ASPIRIN 81 MG CHEW TABLET PEG SCH (08:12)
[2017-02-16] MEDS: VITAMIN D 1,000 INTERNATIONAL UNITS TABLET PEG SCH (08:12)
[2017-02-16] MEDS: ENOXAPARIN 40 MG/0.4 ML SYRINGE (J1650) SC SCH (08:13)
[2017-02-16] MEDS: FLUTICASONE PROP 0.05% NASAL SPRAY 16 GM (FLONASE) SCH (08:13)
[2017-02-16] MEDS: MULTIVITAMIN/MINERALS LIQUID 15ML ORAL SYRINGE PEG SCH (08:13)
[2017-02-16] MEDS: LEVEMIR (INSULIN DETEMIR) 1 UNITS/0.01ML SC SCH (08:13)
[2017-02-16] MEDS: NYSTATIN 100,000 UNITS/GM TOPICAL PWD 15 GM TOP SCH (08:14)
[2017-02-16] MEDS: IPRATROPIUM 0.06% NASAL SPRAY 15 ML (ATROVENT) SCH (09:00)
--- NOTE | 2017-03-17 15:46 | DS.PDOC ---
Discharge Summary General Date of Admission Feb 07, 2017 at 15:30 Date of Discharge 02/17/17 Specialist/Consultants Involve: Alfonso Lee Specialist/Consultants Involve Dr. Porter, Dr. Wilkins Discharge Summary PROCEDURES PERFORMED DURING STAY: Trach revision, PEG revision, bronchoscopy, patel catheter change. DISCHARGE DIAGNOSES: 1. Chronic hypoxic respiratory failure - vent dependent. 2. VAP. 3. ALS s/p trach, PEG 4. Dysphagia 5. IDDM 6. Hypothyroidism 7. Protein calorie malnutrition. 8. Chronic Patel catheter with possible UTI and patel catheter change 9. Gastroesophageal reflux disease (GERD). 10. Anxiety. 11. Coronary artery disease s/p PCI/CABG 12. Chronic obstructive pulmonary disease (COPD). 13. Hypertension. 14. Kyphosis. 15. Dyslipidemia. 16. Gout. 17 . Former smoker - 90 pack year COMPLICATIONS/CHIEF COMPLAINT: Vap (Ventailator-Associated Pnemonia). HISTORY OF PRESENT ILLNESS: This is a 66-year-old male with chronic respiratory failure who is status post trach and percutaneous endoscopic gastrostomy (PEG) secondary to amyotrophic lateral sclerosis (ALS). He was recently admitted on 11/10 to 11/11/2016 with similar complaints and was found to have ventilator-associated pneumonia and improved on antibiotics. Also, at that time, he was found to have an air leak and has had numerous replacements by the ENT service since then. He was actually scheduled to have a permanent trach placed tomorrow by Dr. Porter; however, he has had progressively worsening shortness of breath over the last several days. He reportedly became acutely tachycardic and desaturated at home and his aide made vent changes and was able to suction out minimal from his trach and he was brought to the emergency room for respiratory distress. HOSPITAL COURSE: Patient admitted for respiratory failure, deemed secondary to VAP. Started on broad spectrum antibiotics. Hospital stay complicated with mucus plugging, and subsequently underwent bronchoscopy and trach revision. Patient had some leakage around his PEG tube, surgical consultation for revisions. Questionable UTI, with subsequent patel catheter change. Patient discharged home in stable condition with poor prognosis. DISCHARGE MEDICATIONS: Please see below. ALLERGIES: Please see below. PHYSICAL EXAMINATION ON DISCHARGE: VITAL SIGNS: Please see below. GENERAL: NAD HEENT: trach in place CARDIOVASCULAR EXAMINATION: RRR RESPIRATORY EXAMINATION: diminished breath sounds ABDOMINAL EXAMINATION: PEG in place EXTREMITIES: no edema LABORATORY DATA: Please see below. PROGNOSIS: Poor prognosis ACTIVITY: [As tolerated]. DISPOSITION: 01 Home, Self-Care. DISCHARGE INSTRUCTIONS: 1. Follow up PCP as scheduled. 2. Follow up pulmonology as scheduled. DISCHARGE CONDITION: [Stable]. TIME SPENT ON DISCHARGE: Greater than 30 minutes. Discharge Medications Scheduled (Flonase Allergy Relief) 50 Mcg/Act Spr, 2 SPRAY NA DAILY, (Reported) (Aspirin) 81 Mg Chw, 81 MG PEG DAILY, (Reported) (Methenamine Mandelate) 1 Gm Tab, 1 GM PEG BID, (Reported) (Glucerna 1.2 Jacinto) 1 Liq Liq, 60 ML PEG TID, (Reported) Allopurinol (Allopurinol) 100 Mg Tab, 100 MG PEG BID, (Reported) Alprazolam (Alprazolam) 0.5 Mg Tab, 0.5 MG PEG TID, (Reported) Ascorbic Acid (Ascorbic Acid) 500 Mg Tab, 500 MG PEG BID, (Reported) Atorvastatin Calcium (Atorvastatin Calcium) 20 Mg Tab, 20 MG PEG QHS, (Reported) Baclofen (Baclofen) 10 Mg Tab, 10 MG PEG QHS, (Reported) Bupropion HCl (Bupropion HCl) 75 Mg Tab, 75 MG PEG DAILY, (Reported) Cetirizine HCl (Cetirizine HCl) 10 Mg Tab, 10 MG PEG DAILY, (Reported) Cholecalciferol (Vitamin D) 1,000 Unit Tab, 2,000 UNIT PEG BID, (Reported) Folic Acid (Folic Acid) 1 Mg Tab, 1 MG PEG DAILY, (Reported) Formoterol Fumarate Dihydrate (Perforomist) 20 Mcg/2 Ml Neb, 20 MCG INH BID, ( Reported) Furosemide (Furosemide) 40 Mg Tab, 20 MG PEG BID, (Reported) Insulin Aspart (Novolog) 100 U/Ml Inj, 15 UNITS SC QAM, (Reported) Ipratropium [place] (Ipratropium [place]) 165 [place]/15 Ml Naspr, 2 SPRAY NA TID, (Reported) Levothyroxine Sodium (Synthroid) 75 Mcg Tab, 75 MCG PEG DAILY, (Reported) Magnesium Oxide (Magnesium Oxide) 400 Mg Tab, 400 MG PEG DAILY, (Reported) Metformin Hydrochloride (Metformin HCl) 1,000 Mg Tab, 1,000 MG PEG BID, ( Reported) Metoprolol Tartrate (Metoprolol Tartrate) 25 Mg Tab, 12.5 MG PEG BID, (Reported) Multivitamins Chewable *[facility] STOCKED* (Animal Shapes with C & FA *[facility] STOCKED*) 1 Tab Chew, 1 TAB PEG DAILY, (Reported) Holiday 3 Polyunsat Fatty Acids (Holiday 3 1000 mg) 1 Cap Cap, 1 CAP PEG BID, ( Reported) Riluzole (Riluzole) 50 Mg Tab, 50 MG PEG Q12H, (Reported) Terazosin HCl (Terazosin HCl) 5 Mg Cap, 5 MG PEG DAILY, (Reported) Scheduled PRN (Urea) 10 % Lot, 1 DOSE TOP BID PRN for DRY SKIN, (Reported) USES ON DRY PATCHES ON BODY AFTER EACH SHOWER (Diclofenac Sodium) 1 % Gel, 2 GM TD QID PRN for PAIN, (Reported) PLACED ON SHOULDER AND BACK Acetaminophen (Tylenol) 325 Mg Tab, 650 MG PEG Q6H PRN for PAIN / FEVER, ( Reported) Hydroxyzine HCl (Hydroxyzine HCl) 50 Mg Tab, 50 MG PEG Q6H PRN for ANXIETY, ( Reported) Ondansetron (Ondansetron Odt) 4 Mg Tab, 4 MG PEG Q6H PRN for NAUSEA, (Reported) Senna (Senna Syrup) 15 Ml Udc, 15 ML PEG DAILY PRN for CONSTIPATION, (Reported) Allergies Coded Allergies: Niacin (Unverified Allergy, Intermediate, rash, 09/02/16) LUIS KHAN MD Mar 17, 2017 15:46
== END 2017-02-16 12:00 | disposition home or self-care (01) | DRG 208 ==
LOC: M ED 12:10 → EDBD 12:10 → EDBEDREQSVC 14:49 → M ED INP 15:30 → M ICU 02-08 11:53 → M PCU 02-13 17:24 → M ICU 02-14 11:20
PROVIDERS: ADMIT Internal Medicine; ATTEND Internal Medicine
PROC: 5A1945Z Respiratory Ventilation, 24-96 Consecutive Hours (ICD-10-PCS; principal; 2017-02-07)
PROC: 0BJ08ZZ Inspection of Tracheobronchial Tree, Via Natural or Artificial Opening Endoscopic (ICD-10-PCS; 2017-02-14)
DX: J95.851 Ventilator associated pneumonia (principal); E43 Unspecified severe protein-calorie malnutrition; G12.21 Amyotrophic lateral sclerosis; J96.11 Chronic respiratory failure with hypoxia; Z99.11 Dependence on respirator [ventilator] status; N39.0 Urinary tract infection, site not specified; I47.2 Ventricular tachycardia; J44.9 Chronic obstructive pulmonary disease, unspecified; B96.20 Unspecified Escherichia coli [E. coli] as the cause of diseases classified elsewhere; E78.5 Hyperlipidemia, unspecified; M10.9 Gout, unspecified; Z87.891 Personal history of nicotine dependence; E03.9 Hypothyroidism, unspecified; E11.9 Type 2 diabetes mellitus without complications; K21.9 Gastro-esophageal reflux disease without esophagitis; I25.10 Atherosclerotic heart disease of native coronary artery without angina pectoris; I10 Essential (primary) hypertension; Z79.899 Other long term (current) drug therapy; Z88.8 Allergy status to other drugs, medicaments and biological substances; Z93.0 Tracheostomy status; Z93.1 Gastrostomy status; M40.209 Unspecified kyphosis, site unspecified; K59.00 Constipation, unspecified; F41.9 Anxiety disorder, unspecified; E55.9 Vitamin D deficiency, unspecified; Z79.4 Long term (current) use of insulin; D64.9 Anemia, unspecified; B96.5 Pseudomonas (aeruginosa) (mallei) (pseudomallei) as the cause of diseases classified elsewhere

== ENCOUNTER 2017-03-21 10:29 | Inpatient (IN) | payer OTHER, MEDICARE ==
[~2017-03-21] VITALS: Ht 175.3 cm; Wt 58.0 kg
[~2017-03-21 10:29] MED LIST changes: +ATOR1TAB21 PEG; +GLUC1.2L PEG; +METO1TAB87 PEG; +SENN15UDC PEG; +TERA5CA PEG
[2017-03-21] MEDS ORDERED: NS 1,000 ML IV ONE (12:30)
[2017-03-21] MEDS ORDERED: PANTOPRAZOLE 40MG INJ (PROTONIX) (C9113) IV ONE (12:30)
[2017-03-21 13:30] LABS: CALCIUM OXALATE CRYSTALS SMALL; YEAST LIKE CELL URINE AUTO MODERATE
[2017-03-21 13:33] LABS: BASO % 0.4 % (0.0-1.0); EOS # 0.1 10^3/uL (0.0-0.50); EOS % 1.1 % (0.0-3.0); IMMATURE GRANULOCYTE % 1.7 % (0-0); LYMPH # 1.4 10^3/uL (1.5-4.5); LYMPH % 13.5 % (24.0-44.0); MEAN CORPUSCULAR HEMOGLOBIN 26.8 pg (27.0-33.0); MEAN CORPUSCULAR HGB CONC 29.1 g/dl (32.0-36.5); MEAN CORPUSCULAR VOLUME 92.2 fl (80.0-96.0); MONO # 0.7 10^3/uL (0.0-0.8); MONO % 7.1 % (0.0-5.0); NEUTROPHILS % 76.2 % (36.0-66.0); PLATELET COUNT, AUTOMATED 219 10^3/uL (150-450); RED CELL DISTRIBUTION WIDTH 16.4 % (11.5-14.5); WHITE BLOOD COUNT 10.5 10^3/uL (4.0-10.0)
[2017-03-21 13:38] LABS: INR 1.05
[2017-03-21 13:58] LABS: ALBUMIN 2.8 GM/DL (3.2-5.2); ALBUMIN/GLOBULIN RATIO 0.68 (1.00-1.93); ALKALINE PHOSPHATASE 109 U/L (45-117); ALT/SGPT 15 U/L (12-78); ANION GAP 5 MEQ/L (8-16); AST/SGOT 10 U/L (7-37); BILIRUBIN,DIRECT < 0.1 MG/DL (0.0-0.2); BILIRUBIN,TOTAL 0.3 MG/DL (0.2-1.0); BLOOD UREA NITROGEN 60 MG/DL (7-18); CALCIUM LEVEL 9.9 MG/DL (8.8-10.2); CARBON DIOXIDE LEVEL 38 MEQ/L (21-32); CHLORIDE LEVEL 101 MEQ/L (98-107); CREATININE FOR GFR 0.71 MG/DL (0.70-1.30); GLOMERULAR FILTRATION RATE > 60.0 (>49); GLUCOSE, FASTING 181 MG/DL (80-110); POTASSIUM SERUM 4.3 MEQ/L (3.5-5.1); SODIUM LEVEL 144 MEQ/L (136-145); TOTAL PROTEIN 6.9 GM/DL (6.4-8.2)
--- NOTE | 2017-03-21 13:59 | REP ---
Clinical: Abdominal pain. Technique: Supine view of the chest abdomen and pelvis along with cross-table lateral view of the abdomen. Findings: Frontal view of the chest demonstrates diffuse chronic appearing interstitial changes as well as suspected left hilar and left lower lobe opacity with loss of the diaphragmatic silhouette suggesting associated pleural effusion. Supine and cross-table lateral views of the abdomen demonstrate nonspecific bowel gas pattern. Gastrostomy tube in satisfactory position. Skeletal structures demonstrate age-related degenerative changes. Scattered calcifications are nonspecific and likely benign. Atherosclerotic disease noted. Impression: 1. Veil of opacity involving the left mid to lower lung zone suggesting mediastinal mass/adenopathy, consolidation and pleural effusion. 2. Nonspecific bowel gas pattern. Signed by Josh Saeed MD 03/21/2017 01:50 P
[2017-03-21] MEDS ORDERED: DEXTROSE 50% 50 ML SYRINGE IV PRN ×2 (15:00→21:15)
[2017-03-21] MEDS ORDERED: GLUCOSE 4 GM CHEW TABLET PO PRN ×2 (15:00→21:15)
[2017-03-21] MEDS ORDERED: GLUCAGON FOR INJ 1 MG VIAL (J1610) SC PRN ×2 (15:00→21:15)
[2017-03-21] MEDS: PANTOPRAZOLE SODIUM 40 MG in D5W 50 ML IV SCH ×3 (15:00→20:26)
[2017-03-21] MEDS ORDERED: BACL10TA2 PEG (15:06)
[2017-03-21] MEDS ORDERED: ASCO500T PEG (15:06)
[2017-03-21] MEDS ORDERED: FURO40TA2 PEG (15:06)
[2017-03-21] MEDS ORDERED: DICL1GEL3 TD (15:06)
[2017-03-21] MEDS ORDERED: BUPR75TA5 PEG (15:06)
[2017-03-21] MEDS ORDERED: FOLI1TAB4 PEG (15:06)
[2017-03-21] MEDS ORDERED: ACID1CAP5 PEG (15:06)
[2017-03-21] MEDS ORDERED: ATOR1TAB21 PEG (15:06)
[2017-03-21] MEDS ORDERED: FLON1SPR (15:06)
[2017-03-21] MEDS ORDERED: HYDR50TA70 PEG (15:06)
[2017-03-21] MEDS ORDERED: FURO20TA2 PEG (15:06)
[2017-03-21] MEDS ORDERED: BACI500O8 TOP (15:06)
[2017-03-21] MEDS ORDERED: IPRA6SP (15:06)
[2017-03-21] MEDS ORDERED: MICOPOW31 TOP (15:06)
[2017-03-21] MEDS ORDERED: XANA0.5T PEG (15:06)
[2017-03-21] MEDS ORDERED: LEVO75TA4 PEG (15:06)
[2017-03-21] MEDS ORDERED: PERF20NE2 INH (15:06)
[2017-03-21] MEDS ORDERED: MAGN400T5 PEG (15:06)
[2017-03-21] MEDS ORDERED: GLUC1.2L PEG (15:06)
[2017-03-21] MEDS ORDERED: ALLO100T PEG (15:06)
[2017-03-21] MEDS ORDERED: [UNRECOGNIZED DRUG - OTHER] PEG (15:06)
[2017-03-21] MEDS ORDERED: ALL10TAB27 PEG (15:06)
[2017-03-21] MEDS ORDERED: VITA-112 PEG (15:06)
[2017-03-21] MEDS ORDERED: ALBU83IN INH (15:12)
--- NOTE | 2017-03-21 16:25 | HPEPDOC ---
General Date of Admission Mar 21, 2017 at 14:52 Chief Complaint The patient is a 66-year-old male Presented to the ER with complaints of dark stools History of Present Illness Patient is a 66-year-old male with a PMHx of ALS s/p trach and PEG, Chronic Carter Catheter, Protein calorie malnutrition, hypothyroidism, DM2, GERD , Anxiety, CAD s/p CABG and Stents, COPD, HTN, Kyphosis, DLP and Gout. Patient presented to the emergency room with complaints of dark stools for last 2 days. He noted that on Tuesday he had 3 large bowel movements that were dark and then again on Tuesday with 2 bowel movements that were dark. He noted that this has not happened before in the past. He denies any nausea, vomiting or abdominal pain. He has reported that hes had bleeding around his PEG tube site over the last 2 days as well. Patients PEG tube was put in April 2016. Since that point. It has not been replaced. However, family has noted that it has been tightened by Dr. Wilkins on the prior admission. Patient denies any symptoms of lightheadedness, dizziness or fatigue. He denies any chest pain or palpitations. He notes that he has never experienced this before in the past. Patient denies any fevers or chills. Denies any dysuria. Patient has a chronic Carter catheter in place and was last changed on Tuesday of last week. Home Medications Scheduled (Aspirin) 81 Mg Chw, 81 MG PEG DAILY, (Reported) (Methenamine Mandelate) 1 Gm Tab, 1 GM PEG BID, (Reported) (Diclofenac Sodium) 1 % Gel, 1 % TD QID, (Reported) place on shoulder and back (Flonase Allergy Relief) 50 Mcg/Act Spr, 2 SPRAYS NA DAILY, (Reported) (Glucerna 1.2 Jac[place]) 1 Liq Liq, 60 ML PEG TID, (Reported) Allopurinol (Allopurinol) 100 Mg Tab, 100 MG PEG BID, (Reported) Alprazolam (Xanax) 0.5 Mg Tab, 0.5 MG PEG TID, (Reported) Ascorbic Acid (Ascorbic Acid) 500 Mg Tab, 500 MG PEG BID, (Reported) Atorvastatin Calcium (Atorvastatin Calcium) 20 Mg Tab, 20 MG PEG QHS, (Reported) Baclofen (Baclofen) 10 Mg Tab, 10 MG PEG QHS, (Reported) Bupropion HCl (Bupropion HCl) 75 Mg Tab, 75 MG PEG DAILY, (Reported) Cetirizine HCl (All Day Allergy) 10 Mg Tab, 10 MG PEG DAILY, (Reported) Cholecalciferol (Vitamin D-1000) 1,000 Unit Tab, 1,000 UNIT PEG BID, (Reported) Folic Acid (Folic Acid) 1 Mg Tab, 1 MG PEG DAILY, (Reported) Formoterol Fumarate Dihydrate (Perforomist) 20 Mcg/2 Ml Neb, 20 MCG INH BID, ( Reported) Furosemide (Furosemide) 40 Mg Tab, 20 MG PEG BID, (Reported) Ipratropium [place] (Ipratropium [place]) 165 [place]/15 Ml Naspr, 2 SPRAY NA TID, (Reported) Lactobacillus (Acidophilus Lactobacilli) 1 Cap Cap, 1 CAP PEG BID, (Reported) Levothyroxine Sodium (Synthroid) 75 Mcg Tab, 75 MCG PEG DAILY, (Reported) Magnesium Oxide (Magnesium Oxide 400) 400 Mg Tab, 400 MG PEG DAILY, (Reported) Metformin Hydrochloride (Metformin HCl) 1,000 Mg Tab, 1,000 MG PEG BID, ( Reported) Metoprolol Tartrate (Metoprolol Tartrate) 25 Mg Tab, 12.5 MG PEG BID, (Reported) Multivitamins Chewable *[facility] STOCKED* (Animal Shapes with C & FA *[facility] STOCKED*) 1 Tab Chew, 1 TAB PEG DAILY, (Reported) [place] 3 Polyunsat Fatty Acids ([place] 3 1000 mg) 1 Cap Cap, 1 CAP PEG BID, ( Reported) Riluzole (Riluzole) 50 Mg Tab, 50 MG PEG Q12H, (Reported) Terazosin HCl (Terazosin HCl) 5 Mg Cap, 5 MG PEG DAILY, (Reported) [diabeti source] , PEG AC, (Reported) Scheduled PRN (Urea) 10 % Lot, 1 DOSE TOP BID PRN for DRY SKIN, (Reported) USES ON DRY PATCHES ON BODY AFTER EACH SHOWER Acetaminophen (Tylenol) 325 Mg Tab, 650 MG PEG Q6H PRN for PAIN / FEVER, ( Reported) Albuterol Sulfate (Albuterol Sulfate) 2.5 Mg/3 Ml Nebu, 2.5 MG INH Q4H PRN for SHORTNESS OF BREATH, (Reported) Bacitracin Base (Bacitracin) 500 Unit/Gm Oin, 1 DOSE TOP for DISCOMFORT, ( Reported) use around trach and peg tube Hydroxyzine HCl (Hydroxyzine HCl) 50 Mg Tab, 50 MG PEG Q6HP PRN for ANXIETY, ( Reported) Miconazole (Miconazole) 1 Pow Pow, 1 DOSE TOP 5XD PRN for RASH, (Reported) apply to buttocks Ondansetron (Ondansetron Odt) 4 Mg Tab, 4 MG PEG Q6H PRN for NAUSEA, (Reported) Senna (Senna Syrup) 15 Ml Udc, 15 ML PEG DAILY PRN for CONSTIPATION, (Reported) Allergies Coded Allergies: Niacin (Unverified Allergy, Intermediate, rash, 09/02/16) Past Medical History Medical History ALS s/p trach and PEG, Chronic Carter Catheter, Protein calorie malnutrition, hypothyroidism, DM2, GERD, Anxiety, CAD s/p CABG and Stents, COPD, HTN, Kyphosis , DLP and Gout. Surgical History Cardiac stents 1 in 1999 Coronary bypass graft in Tracheostomy with numerous trach exchanges; first put in August 2016 and replaced in January 2017 PEG placement in April 2016 Family History Noncontributory given advanced age Social History - Quit smoking in 2014, but a smoker of 90 pack years; denies the use of alcohol or drugs - Denies recent travel or sick contacts - Lives with - Occupation; retired from [employer] Review of Symptoms Other systems Negative systems otherwise stated in HPI Vital Signs - Vitals: BP 125/57, HR 99, RR 18, Sat 99%RA, Temp 98.9F - General: Lying in bed, No acute distress, AAOx3 - HEENT: NC, AT, PERRLA, EOMI, Trach - CVS: RRR, +S1S2 - Lungs: Fair air entry bilaterally, Clear to auscultation, No wheezing / rales / rhonchi - Abdomen: Soft, Non-distended, Non-tender, + Bowel sounds x 4, + PEG tube - Extremities: No lower extremity edema, No calf tenderness - Neuro: No focal motor or sensory deficit - Skin: No visible rashes Laboratory Data Labs 24H Laboratory Tests 2 03/21/17 12:54: Immature Granulocyte % (Auto) 1.7H, White Blood Count 10.5H, Red Blood Count 2.31L, Hemoglobin 6.2*L, Hematocrit 21.3L, Mean Corpuscular Volume 92.2, Mean Corpuscular Hemoglobin 26.8L, Mean Corpuscular Hemoglobin Concent 29.1L, Red Cell Distribution Width 16.4H, Platelet Count 219, Neutrophils (%) (Auto) 76.2H , Lymphocytes (%) (Auto) 13.5L, Monocytes (%) (Auto) 7.1H, Eosinophils (%) (Auto ) 1.1, Basophils (%) (Auto) 0.4, Neutrophils # (Auto) 8.0H, Lymphocytes # (Auto ) 1.4L, Monocytes # (Auto) 0.7, Eosinophils # (Auto) 0.1, Basophils # (Auto) 0.0 , Immature Granulocyte # (Auto) 0.2H, Nucleated Red Blood Cells % (auto) 0.0, Prothrombin Time 13.8, Prothromb Time International Ratio 1.05, Activated Partial Thromboplast Time 33.2, Anion Gap 5L, Glomerular Filtration Rate > 60.0 , Calcium Level 9.9, Aspartate Amino Transf (AST/SGOT) 10, Alanine Aminotransferase (ALT/SGPT) 15, Alkaline Phosphatase 109, Total Bilirubin 0.3, Direct Bilirubin < 0.1, Total Creatine Kinase 17L, Creatine Kinase MB 2.9, Creatine Kinase MB Relative Index 17.05H, Troponin I < 0.02, Total Protein 6.9, Albumin 2.8L, Albumin/Globulin Ratio 0.68L, Lipase 189 03/21/17 12:59: Urine Appearance HAZY, Urine Color YELLOW, Urine pH 7.0, Urine Specific [place] 1.016, Urine Protein 1+H, Urine Glucose (UA) NEGATIVE, Urine Ketones NEGATIVE, Urine Urobilinogen 0.2, Urine Bilirubin NEGATIVE, Urine Leukocyte Esterase 3+H, Urine Blood NEGATIVE, Urine Nitrite NEGATIVE, Urine WBC (Auto) 47H, Urine RBC ( Auto) 4H, Urine Hyaline Casts (Auto) 0, Urine Bacteria (Auto) 1+H, Urine Squamous Epithelial Cells 0, Urine Calcium Oxalate Cryst (Auto) SMALL, Urine Mucus (Auto) SMALL, Urine Yeast-Like Cells (Auto) MODERATEH, Urine Sperm (Auto) CBC/BMP Laboratory Tests 03/21/17 12:54 Red Blood Count 2.31 L, Mean Corpuscular Volume 92.2, Mean Corpuscular Hemoglobin 26.8 L, Mean Corpuscular Hemoglobin Concent 29.1 L, Red Cell Distribution Width 16.4 H, Neutrophils (%) (Auto) 76.2 H, Lymphocytes (%) (Auto ) 13.5 L, Monocytes (%) (Auto) 7.1 H, Eosinophils (%) (Auto) 1.1, Basophils (%) (Auto) 0.4, Neutrophils # (Auto) 8.0 H, Lymphocytes # (Auto) 1.4 L, Monocytes # (Auto) 0.7, Eosinophils # (Auto) 0.1, Basophils # (Auto) 0.0 Microbiology Microbiology 03/21/17 Urine Culture, Received Pending Plan / VTE VTE Prophylaxis Ordered?: Yes Plan Plan Dark stools - likely 2/2 Upper GI bleed, possibly secondary to PEG related bleeding - Presented to the ER with complaints of dark stools for the last 2 days - Denies any symptoms of anemia - Physical without any abdominal tenderness or hemodynamic instability - Hemoglobin noted to be 6.1 on admission where baseline hemoglobin runs around 8-9 - We will transfuse 2 units of PRBC - We will start Protonix drip IV and IV fluid hydration - Will keep nothing by mouth for possible procedure tomorrow - Well check CBC post transfusion and then every 6 hours from that point - Hold aspirin 81 - Discussed case with Dr. Breen (Project H[employer]); will be on consult ALS s/p trach and PEG Chronic Carter Catheter Protein calorie malnutrition Hypothyroidism - Continue with levothyroxine 75 DM2 GERD Anxiety - Continue with alprazolam, bupropion CAD s/p CABG and Stents - Hold aspirin 81 - Continue with atorvastatin COPD HTN - Hold furosemide and Terazosin - Continue with metoprolol tartrate with holding parameters Kyphosis DLP - Continue with atorvastatin Gout - Continue with allopurinol Gastrointestinal prophylaxis - Will start Protonix drip DVT prophylaxis - Will start SCDs CAROLYN DÍAZ MD Mar 21, 2017 16:25
[2017-03-21] MEDS ORDERED: BACITRACIN OINT 30GM TOP PRN (16:30)
--- NOTE | 2017-03-21 16:45 | CR.PDOC ---
[facility] Consultation Consultation DATE OF CONSULTATION: Mar 21, 2017 at 4:29 PM Primary physician/ hospitalist: Dr. Marcin Beckwith Reason for consult: Dark stools with anemia Gi bleeding. HPI: 66-year-old male patient with ALS s/p trach and PEG, with multiple muscle stiffness and weakness, Chronic Patel Catheter, Protein calorie malnutrition, hypothyroidism, DM2, Anxiety, CAD s/p CABG and Stents, COPD, HTN, Kyphosis, DLP and Gout, presented to ER for complaints of darks stools. Patient is noted with low H/H and GI consulted for possible acute GI bleeding. Patient is AAO x 3 butnon verbal as he is on tracheostomy and on full ventilator support. Patient and his ( at bedside provided history) -- Patient noted with multiple large dark bowel movements since Tuesday ( 2 days), and also some bleeding from PEG tube site which resolved after dressing change. Patients PEG tube was put in April 2016 at outside [facility]. Pertinent negative GI symptoms: Patient denies nausea, vomiting, abdominal pain, loss of appetite, early satiety or unintentional weight loss. No history of hematemesis, hematochezia. Review of Systems: GI: as stated above CVS: No chest pain, No palpitations, RS: No Shortness of breath, No Wheezing, no cough RIGHT OF WAY AGENT: No dizziness, multiple muscle group spasms and weakness. Hematology: No bruising, No gum bleeding, Musculoskeletal: No joint pain, Skin: No rash : ON chronic patel, No burning sensation of the urine ENT: No ear discharge/ pain, No dysphagia. Eyes: No photophobia. Home medications: reviewed. On aspirin 81 mg. No Plavix and no anticoagulants Medical h/o: As above. Surgical h/o: None on abdomen. Social h/o: Alcohol denies, smoking former smoker, quit in 2014, IVDA/ drugs denies. Family h/o of GI cancers - None Prior Endoscopies: None in [facility] Prior GI evaluation: None in [facility] Exam: Vitals: reviewed General: Alert and oriented x 3 HEENT: NO pallor, no icterus. Normal oropharynx, NO cervical lymph nodes. Tracheostomy in place Chest: symmetric with bilateral clear air entry, CVS: S1, S2 heard, normal, no murmurs . Abdomen: non-distended, no surgical scars, soft, non-tender, no palpable masses , normal bowel sounds heard. PEG tube in place with clean dressing no active bleeding. PEG tube Has Significant corrosion damage. Rectal exam: Patient refused / Deferred at this time in view of scheduled colonoscopy. Extremities: no pedal edema, pulses palpable. RIGHT OF WAY AGENT: Multiple muscle groups spasms related to ALS. Skin: no rash. Labs: reviewed. Acute drop in H/H. Elevated BUN/creatinine Normal LFT. Imaging: reviewed Impression: -- Acute drop in hemoglobin and hematocrit with dark stools and increased BUN - - likely upper GI bleeding. DDx - PUD versus AVM versus PEG site bleeding versus less likely lower GI bleeding. -- Damage to PEG tube. -- needs replacement. Recommendations: - Patient educated about the test results, possible differential diagnoses and All questions answered. - IV PPI drip / intermittent IV pushes. - Nothing by mouth - Monitor H/H, transfuse as needed. Goal hemoglobin around 9- 10 (in view of CAD ). - Patient will be scheduled for EGD after adequate resuscitation. - The procedure, indications, risks (bleeding, perforation, infection, hypotension, respiratory depression, allergy, need for endotracheal intubation, surgery, colostomy, cardiac arrest, even ), benefits, limitations (e.g., missing a lesion), and all other alternatives (including no intervention) were explained to the patient who understood and agreed for the procedure. We will change the PEG tube if possible during endoscopy. Patient and his verbalized understanding and consented for the procedure. Plan of care discussed with patient and primary team. Patient verbalized understanding and agreed with the plan. Allergies Coded Allergies: Niacin (Unverified Allergy, Intermediate, rash, 09/02/16) Home Medications Scheduled (Aspirin) 81 Mg Chw, 81 MG PEG DAILY, (Reported) (Methenamine Mandelate) 1 Gm Tab, 1 GM PEG BID, (Reported) (Diclofenac Sodium) 1 % Gel, 1 % TD QID, (Reported) place on shoulder and back (Flonase Allergy Relief) 50 Mcg/Act Spr, 2 SPRAYS NA DAILY, (Reported) (Glucerna 1.2 Jacinto) 1 Liq Liq, 60 ML PEG TID, (Reported) Allopurinol (Allopurinol) 100 Mg Tab, 100 MG PEG BID, (Reported) Alprazolam (Xanax) 0.5 Mg Tab, 0.5 MG PEG TID, (Reported) Ascorbic Acid (Ascorbic Acid) 500 Mg Tab, 500 MG PEG BID, (Reported) Atorvastatin Calcium (Atorvastatin Calcium) 20 Mg Tab, 20 MG PEG QHS, (Reported) Baclofen (Baclofen) 10 Mg Tab, 10 MG PEG QHS, (Reported) Bupropion HCl (Bupropion HCl) 75 Mg Tab, 75 MG PEG DAILY, (Reported) Cetirizine HCl (All Day Allergy) 10 Mg Tab, 10 MG PEG DAILY, (Reported) Cholecalciferol (Vitamin D-1000) 1,000 Unit Tab, 1,000 UNIT PEG BID, (Reported) Folic Acid (Folic Acid) 1 Mg Tab, 1 MG PEG DAILY, (Reported) Formoterol Fumarate Dihydrate (Perforomist) 20 Mcg/2 Ml Neb, 20 MCG INH BID, ( Reported) Furosemide (Furosemide) 40 Mg Tab, 20 MG PEG BID, (Reported) Ipratropium [place] (Ipratropium [place]) 165 [place]/15 Ml Naspr, 2 SPRAY NA TID, (Reported) Lactobacillus (Acidophilus Lactobacilli) 1 Cap Cap, 1 CAP PEG BID, (Reported) Levothyroxine Sodium (Synthroid) 75 Mcg Tab, 75 MCG PEG DAILY, (Reported) Magnesium Oxide (Magnesium Oxide 400) 400 Mg Tab, 400 MG PEG DAILY, (Reported) Metformin Hydrochloride (Metformin HCl) 1,000 Mg Tab, 1,000 MG PEG BID, ( Reported) Metoprolol Tartrate (Metoprolol Tartrate) 25 Mg Tab, 12.5 MG PEG BID, (Reported) Multivitamins Chewable *[facility] STOCKED* (Animal Shapes with C & FA *[facility] STOCKED*) 1 Tab Chew, 1 TAB PEG DAILY, (Reported) [place] 3 Polyunsat Fatty Acids ([place] 3 1000 mg) 1 Cap Cap, 1 CAP PEG BID, ( Reported) Riluzole (Riluzole) 50 Mg Tab, 50 MG PEG Q12H, (Reported) Terazosin HCl (Terazosin HCl) 5 Mg Cap, 5 MG PEG DAILY, (Reported) [diabeti source] , PEG AC, (Reported) Scheduled PRN (Urea) 10 % Lot, 1 DOSE TOP BID PRN for DRY SKIN, (Reported) USES ON DRY PATCHES ON BODY AFTER EACH SHOWER Acetaminophen (Tylenol) 325 Mg Tab, 650 MG PEG Q6H PRN for PAIN / FEVER, ( Reported) Albuterol Sulfate (Albuterol Sulfate) 2.5 Mg/3 Ml Nebu, 2.5 MG INH Q4H PRN for SHORTNESS OF BREATH, (Reported) Bacitracin Base (Bacitracin) 500 Unit/Gm Oin, 1 DOSE TOP for DISCOMFORT, ( Reported) use around trach and peg tube Hydroxyzine HCl (Hydroxyzine HCl) 50 Mg Tab, 50 MG PEG Q6HP PRN for ANXIETY, ( Reported) Miconazole (Miconazole) 1 Pow Pow, 1 DOSE TOP 5XD PRN for RASH, (Reported) apply to buttocks Ondansetron (Ondansetron Odt) 4 Mg Tab, 4 MG PEG Q6H PRN for NAUSEA, (Reported) Senna (Senna Syrup) 15 Ml Udc, 15 ML PEG DAILY PRN for CONSTIPATION, (Reported) JOSE COOL MD Mar 21, 2017 16:45
[2017-03-21] MEDS: ALBUTEROL SULFATE 2.5 MG/0.5 ML INH NEB SOLN INH PRN (16:56)
[2017-03-21] MEDS ORDERED: HumaLOG INSULIN (NovoLOG) PER UNIT SC SCH ×2 (17:30→21:00)
[2017-03-21 18:04] LABS: BASO % 0.4 % (0.0-1.0); EOS # 0.1 10^3/uL (0.0-0.50); EOS % 1.2 % (0.0-3.0); IMMATURE GRANULOCYTE % 1.8 % (0-0); LYMPH # 1.7 10^3/uL (1.5-4.5); LYMPH % 14.8 % (24.0-44.0); MEAN CORPUSCULAR HEMOGLOBIN 26.9 pg (27.0-33.0); MEAN CORPUSCULAR HGB CONC 29.7 g/dl (32.0-36.5); MEAN CORPUSCULAR VOLUME 90.5 fl (80.0-96.0); MONO # 0.9 10^3/uL (0.0-0.8); MONO % 7.7 % (0.0-5.0); NEUTROPHILS # 8.4 10^3/uL (1.8-7.7); NEUTROPHILS % 74.1 % (36.0-66.0); PLATELET COUNT, AUTOMATED 207 10^3/uL (150-450); RED CELL DISTRIBUTION WIDTH 16.5 % (11.5-14.5); WHITE BLOOD COUNT 11.4 10^3/uL (4.0-10.0)
[2017-03-21 18:05] VITALS: BP 113/55
[2017-03-21 19:55] VITALS: BP 116/60
[2017-03-21] MEDS: NS 1,000 ML IV SCH (20:03)
[2017-03-21] MEDS: FORMOTEROL FUMARATE 20 MCG/2 ML INHALATION SOLUTION (PERFOROMIST) INH SCH (20:35)
[2017-03-21] MEDS: IPRATROPIUM 0.06% NASAL SPRAY 15 ML (ATROVENT) SCH (21:00)
[2017-03-21] MEDS: BACLOFEN 10 MG TAB PEG SCH (21:01)
[2017-03-21] MEDS: ATORVASTATIN 20 MG TAB PEG SCH (21:01)
[2017-03-21] MEDS: ALPRAZolam 0.5 MG TAB PEG SCH (21:02)
[2017-03-21] MEDS: ALLOPURINOL 100 MG TAB PEG SCH (21:02)
[2017-03-21] MEDS: VITAMIN D 1,000 INTERNATIONAL UNITS TABLET PEG SCH (21:02)
[2017-03-21] MEDS: ASCORBIC ACID 500 MG TAB PEG SCH (21:02)
[2017-03-21] MEDS: METOPROLOL TART 12.5 MG PER 1/2 TAB PEG SCH (21:02)
[2017-03-21] MEDS: ACETAMINOPHEN TAB 650MG DOSE (2X325MG) PEG PRN (21:08)
[2017-03-21 22:19] LABS: BASO % 0.3 % (0.0-1.0); EOS # 0.1 10^3/uL (0.0-0.50); EOS % 0.7 % (0.0-3.0); IMMATURE GRANULOCYTE % 1.6 % (0-0); LYMPH # 1.4 10^3/uL (1.5-4.5); LYMPH % 12.3 % (24.0-44.0); MEAN CORPUSCULAR HEMOGLOBIN 26.4 pg (27.0-33.0); MEAN CORPUSCULAR HGB CONC 30.2 g/dl (32.0-36.5); MEAN CORPUSCULAR VOLUME 87.2 fl (80.0-96.0); MONO % 8.8 % (0.0-5.0); NEUTROPHILS # 8.8 10^3/uL (1.8-7.7); NEUTROPHILS % 76.3 % (36.0-66.0); PLATELET COUNT, AUTOMATED 197 10^3/uL (150-450); RED CELL DISTRIBUTION WIDTH 17.6 % (11.5-14.5); WHITE BLOOD COUNT 11.6 10^3/uL (4.0-10.0)
[2017-03-21 23:59] VITALS: BP 100/54
[2017-03-22] VITALS (10 sets, daily range): BP systolic 120–170; BP diastolic 59–86
[2017-03-22] MEDS: HumaLOG INSULIN (NovoLOG) PER UNIT SC SCH ×4 (00:30→18:25)
[2017-03-22] MEDS: PANTOPRAZOLE SODIUM 40 MG in D5W 50 ML IV SCH ×5 (00:52→21:48)
[2017-03-22] MEDS: NS 1,000 ML IV SCH ×2 (04:23→18:00)
[2017-03-22] MEDS: LEVOTHYROXINE 75MCG TABLET (0.075MG) PEG SCH (04:58)
[2017-03-22 07:12] LABS: BASO # 0.1 10^3/uL (0.0-0.2); BASO % 0.5 % (0.0-1.0); EOS # 0.1 10^3/uL (0.0-0.50); EOS % 0.6 % (0.0-3.0); IMMATURE GRANULOCYTE % 1.1 % (0-0); LYMPH # 1.5 10^3/uL (1.5-4.5); LYMPH % 10.4 % (24.0-44.0); MEAN CORPUSCULAR HEMOGLOBIN 27.8 pg (27.0-33.0); MEAN CORPUSCULAR HGB CONC 32.5 g/dl (32.0-36.5); MEAN CORPUSCULAR VOLUME 85.6 fl (80.0-96.0); MONO # 1.2 10^3/uL (0.0-0.8); MONO % 8.3 % (0.0-5.0); NEUTROPHILS # 11.4 10^3/uL (1.8-7.7); NEUTROPHILS % 79.1 % (36.0-66.0); PLATELET COUNT, AUTOMATED 185 10^3/uL (150-450); RED CELL DISTRIBUTION WIDTH 17.9 % (11.5-14.5); WHITE BLOOD COUNT 14.4 10^3/uL (4.0-10.0)
[2017-03-22 07:30] LABS: ALBUMIN 2.5 GM/DL (3.2-5.2); ALBUMIN/GLOBULIN RATIO 0.74 (1.00-1.93); ALKALINE PHOSPHATASE 70 U/L (45-117); ALT/SGPT 13 U/L (12-78); ANION GAP 7 MEQ/L (8-16); AST/SGOT 11 U/L (7-37); BILIRUBIN,TOTAL 1.3 MG/DL (0.2-1.0); BLOOD UREA NITROGEN 40 MG/DL (7-18); CALCIUM LEVEL 9.2 MG/DL (8.8-10.2); CARBON DIOXIDE LEVEL 28 MEQ/L (21-32); CHLORIDE LEVEL 110 MEQ/L (98-107); CREATININE FOR GFR 0.54 MG/DL (0.70-1.30); GLOMERULAR FILTRATION RATE > 60.0 (>49); GLUCOSE, FASTING 127 MG/DL (80-110); MAGNESIUM LEVEL 1.4 MG/DL (1.8-2.4); POTASSIUM SERUM 3.5 MEQ/L (3.5-5.1); SODIUM LEVEL 145 MEQ/L (136-145); TOTAL PROTEIN 5.9 GM/DL (6.4-8.2)
[2017-03-22] MEDS: FORMOTEROL FUMARATE 20 MCG/2 ML INHALATION SOLUTION (PERFOROMIST) INH SCH ×2 (08:11→20:00)
[2017-03-22] MEDS: CETIRIZINE (ZyrTEC) 10 MG TAB PEG SCH (08:58)
[2017-03-22] MEDS: FLUTICASONE PROP 0.05% NASAL SPRAY 16 GM (FLONASE) SCH (08:58)
[2017-03-22] MEDS: ALLOPURINOL 100 MG TAB PEG SCH (08:59)
[2017-03-22] MEDS: FOLIC ACID 1 MG TAB PEG SCH (08:59)
[2017-03-22] MEDS: VITAMIN D 1,000 INTERNATIONAL UNITS TABLET PEG SCH (08:59)
[2017-03-22] MEDS: ACETAMINOPHEN TAB 650MG DOSE (2X325MG) PEG PRN (08:59)
[2017-03-22] MEDS: MAGNESIUM OXIDE 400 MG TAB (MAG-OX) PEG SCH (08:59)
[2017-03-22] MEDS: buPROPion 75 MG TAB PEG SCH (08:59)
[2017-03-22] MEDS: METOPROLOL TART 12.5 MG PER 1/2 TAB PEG SCH (08:59)
[2017-03-22] MEDS: ASCORBIC ACID 500 MG TAB PEG SCH (08:59)
[2017-03-22] MEDS: MULTIVITAMINS CHILDREN'S CHEWABLE TABLET PO SCH (09:00)
[2017-03-22] MEDS: ALPRAZolam 0.5 MG TAB PEG SCH (09:00)
[2017-03-22] MEDS: CEFTRIAXONE SOD 1 GM in APPROPRIATE DILUENT 1 EA IV SCH (09:00)
[2017-03-22] MEDS: MAG SULF 1GM/100ML (MAG RUN) 1 GM in APPROPRIATE DILUENT 1 EA IV SCH ×2 (11:01→12:14)
[2017-03-22 12:04] LABS: MEAN CORPUSCULAR HEMOGLOBIN 27.6 pg (27.0-33.0); MEAN CORPUSCULAR VOLUME 86.2 fl (80.0-96.0); PLATELET COUNT, AUTOMATED 189 10^3/uL (150-450); RED CELL DISTRIBUTION WIDTH 17.9 % (11.5-14.5)
--- NOTE | 2017-03-22 12:56 | IPNPDOC ---
Text Note Date of Service The patient was seen on 03/22/17. NOTE Subjective: Patient is a 66-year-old male with a PMHx of ALS s/p trach and PEG, Chronic Carter Catheter, Protein calorie malnutrition, hypothyroidism, DM2, GERD , Anxiety, CAD s/p CABG and Stents, COPD, HTN, Kyphosis, DLP and Gout. Presented to the ER with complaints of dark stools for the last 2 days. Was admitted to hospitalist service for suspected upper GI bleeding and received transfusions. Patient has been scheduled for EGD on 03/22. Patient was seen and examined at the bedside. Currently, denies any lightheadedness, dizziness, chest pain or palpitations. Denies any bleeding around PEG tube site. Denies any further dark stools. Objective: Vitals (See below) General: Lying in bed, no acute distress, comfortable, AAOx3 HEENT: NC, AT, s/p trach CVS: RRR, +S1S2 Lungs: Fair air entry b/l, -w/r/r Abdomen: Soft, ND, NT, +BSx4, s/p PEG Extremities: - Edema, - Calf tenderness Assessment and plan: Dark stools - likely 2/2 Upper GI bleed, possibly secondary to PEG related bleeding - Clinically remains asymptomatic; - Physical without any abdominal tenderness or bleeding around PEG tube - Hg of 6.1 on admission; improved to 10 after transfusion - s/p 5 units of PRBC; will follow H&H q6h - c/w Protonix drip IV, IV fluid hydration - NPO for EGD today - Continue to Hold aspirin 81 - DDr. Breen (Keyseater Operator) on consult; appreciate their input ALS s/p trach and PEG Chronic Carter Catheter Protein calorie malnutrition Hypothyroidism - c/w levothyroxine 75 DM2 GERD Anxiety - c/w alprazolam, bupropion CAD s/p CABG and Stents - Hold aspirin 81 - c/w atorvastatin COPD HTN - Hold furosemide and Terazosin - c/w metoprolol tartrate with holding parameters Kyphosis DLP - c/w atorvastatin Gout - c/w allopurinol Gastrointestinal prophylaxis - c/w Protonix drip DVT prophylaxis - c/w SCDs VS,Fishbone, I+O VS, Fishbone, I+O Laboratory Tests 03/21/17 12:54 Red Blood Count 2.31 L, Mean Corpuscular Volume 92.2, Mean Corpuscular Hemoglobin 26.8 L, Mean Corpuscular Hemoglobin Concent 29.1 L, Red Cell Distribution Width 16.4 H, Neutrophils (%) (Auto) 76.2 H, Lymphocytes (%) (Auto ) 13.5 L, Monocytes (%) (Auto) 7.1 H, Eosinophils (%) (Auto) 1.1, Basophils (%) (Auto) 0.4, Neutrophils # (Auto) 8.0 H, Lymphocytes # (Auto) 1.4 L, Monocytes # (Auto) 0.7, Eosinophils # (Auto) 0.1, Basophils # (Auto) 0.0 03/21/17 17:53 Red Blood Count 2.42 L, Mean Corpuscular Volume 90.5, Mean Corpuscular Hemoglobin 26.9 L, Mean Corpuscular Hemoglobin Concent 29.7 L, Red Cell Distribution Width 16.5 H, Neutrophils (%) (Auto) 74.1 H, Lymphocytes (%) (Auto ) 14.8 L, Monocytes (%) (Auto) 7.7 H, Eosinophils (%) (Auto) 1.2, Basophils (%) (Auto) 0.4, Neutrophils # (Auto) 8.4 H, Lymphocytes # (Auto) 1.7, Monocytes # ( Auto) 0.9 H, Eosinophils # (Auto) 0.1, Basophils # (Auto) 0.0 03/21/17 22:08 Red Blood Count 2.58 L, Mean Corpuscular Volume 87.2, Mean Corpuscular Hemoglobin 26.4 L, Mean Corpuscular Hemoglobin Concent 30.2 L, Red Cell Distribution Width 17.6 H, Neutrophils (%) (Auto) 76.3 H, Lymphocytes (%) (Auto ) 12.3 L, Monocytes (%) (Auto) 8.8 H, Eosinophils (%) (Auto) 0.7, Basophils (%) (Auto) 0.3, Neutrophils # (Auto) 8.8 H, Lymphocytes # (Auto) 1.4 L, Monocytes # (Auto) 1.0 H, Eosinophils # (Auto) 0.1, Basophils # (Auto) 0.0 03/22/17 07:05 Red Blood Count 3.67 L, Mean Corpuscular Volume 85.6, Mean Corpuscular Hemoglobin 27.8, Mean Corpuscular Hemoglobin Concent 32.5, Red Cell Distribution Width 17.9 H, Neutrophils (%) (Auto) 79.1 H, Lymphocytes (%) (Auto ) 10.4 L, Monocytes (%) (Auto) 8.3 H, Eosinophils (%) (Auto) 0.6, Basophils (%) (Auto) 0.5, Neutrophils # (Auto) 11.4 H, Lymphocytes # (Auto) 1.5, Monocytes # ( Auto) 1.2 H, Eosinophils # (Auto) 0.1, Basophils # (Auto) 0.1, Calcium Level 9.2 , Aspartate Amino Transf (AST/SGOT) 11, Alanine Aminotransferase (ALT/SGPT) 13, Alkaline Phosphatase 70, Total Bilirubin 1.3 #H, Total Protein 5.9 L, Albumin 2.5 L 03/22/17 11:45 Red Blood Count 3.48 L, Mean Corpuscular Volume 86.2, Mean Corpuscular Hemoglobin 27.6, Mean Corpuscular Hemoglobin Concent 32.0, Red Cell Distribution Width 17.9 H Vital Signs Date Time Temp Pulse Resp B/P (MAP) Pulse Ox O2 Delivery O2 Flow Rate FiO2 03/22/17 08:00 97.1 99 18 138/62 (87) 98 Trach Collar 4.0 CAROLYN DÍAZ MD Mar 22, 2017 12:56
[2017-03-22] MEDS ORDERED: MIDAZOLAM INJ 2 MG/2 ML VIAL (J2250) As Ordered ONE (13:20)
[2017-03-22] MEDS ORDERED: fentaNYL 100 MCG/2 ML INJECTION (J3010) As Ordered ONE (13:25)
[2017-03-22] MEDS ORDERED: PHENYLephrine HCL 500 MCG/5 ML (100MCG/ML) SYRINGE (J2370) As Ordered ONE (14:16)
[2017-03-22] MEDS ORDERED: LIDOCAINE 2% INJ 100 MG/5 ML SDV (FOR ANES.) As Ordered ONE (14:41)
[2017-03-22] MEDS ORDERED: PROPOFOL 200 MG/20 ML VIAL As Ordered ONE (14:41)
[2017-03-22] MEDS ORDERED: ONDANSETRON 4MG/2ML VIAL (J2405) IV PRN (15:00)
[2017-03-22] MEDS ORDERED: LR 1,000 ML IV SCH (15:00)
--- NOTE | 2017-03-22 15:11 | ROOR ---
Patient Name: Talha Major Procedure Date: 03/22/2017 2:16 PM Date of : 1950 Age: 66 Room: Main OR Gender: Male Note Status: Finalized Procedure: Upper GI endoscopy Indications: Recent gastrointestinal bleeding, Suspected upper gastrointestinal bleeding Providers: Delmer Breen MD Referring MD: 1. No Referring Physician 1. No Referring Physician, Admin. Requesting Provider: Medicines: Monitored Anesthesia Care Complications: No immediate complications. Procedure: Pre-Anesthesia Assessment: - Prior to the procedure, a History and Physical was performed, and patient medications and allergies were reviewed. The patient is competent. The risks and benefits of the procedure and the sedation options and risks were discussed with the patient. All questions were answered and informed consent was obtained. Patient identification and proposed procedure were verified by the physician, the nurse and the anesthesiologist in the procedure room. Mental Status Examination: alert and oriented. Airway Examination: tracheostomy via ventilator. Respiratory Examination: clear to auscultation. CV Examination: normal. Prophylactic Antibiotics: The patient does not require prophylactic antibiotics. Prior Anticoagulants: The patient has taken no previous anticoagulant or antiplatelet agents. ASA Grade Assessment: IV - A patient with severe systemic disease that is a constant threat to life. After reviewing the risks and benefits, the patient was deemed in satisfactory condition to undergo the procedure. The anesthesia plan was to use monitored anesthesia care (MAC). Immediately prior to administration of medications, the patient was re-assessed for adequacy to receive sedatives. The heart rate, respiratory rate, oxygen saturations, blood pressure, adequacy of pulmonary ventilation, and response to care were monitored throughout the procedure. The physical status of the patient was re-assessed after the procedure. The Endoscope was introduced through the mouth, and advanced to the second part of duodenum. The upper GI endoscopy was accomplished without difficulty. The patient tolerated the procedure well. Findings: The examined esophagus was normal. There was evidence of an eroding gastrostomy tube present in the gastric body. This was characterized by friable mucosa, a hemorrhagic appearance and ulceration. The PEG required removal because it was embedded and was not functioning. The PEG was cut externally, grasped, and removed with the scope. Removal was accomplished by placing a kelley over the scope and using rat tooth forceps. After inspecting the gastric ulcer and making sure adequate track was formed a replacement PEG tube was placed and position confirmed endoscopically. The duodenal bulb and second portion of the duodenum were normal. Impression: - Normal esophagus. - Eroding gastrostomy tube present characterized by friable mucosa, a hemorrhagic appearance and ulceration. - Normal duodenal bulb and second portion of the duodenum. - The PEG was cut externally, grasped, and removed with the scope because it was embedded and was not functioning. - An externally removable PEG placement was successfully completed. - No specimens collected. Recommendation: - Patient has a contact number available for emergencies. The signs and symptoms of potential delayed complications were discussed with the patient. Return to normal activities tomorrow. Written discharge instructions were provided to the patient. - [facility] to [facility]. - NPO for 2 days. - Change all oral/per PEG medications to IV if possible for the next 2 days. Nothing per PEG tube for the next 2 days. - Use a proton pump inhibitor IV BID for 2 days then switch to oral formulation for total course of atleast 8 weeks.. - Refer to a surgeon today. - Return to primary care physician. Delmer Breen MD Delmer Breen MD 03/22/2017 3:10:48 PM This report has been signed electronically. Number of Addenda: 0 Note Initiated On: 03/22/2017 2:16 PM Estimated Blood Loss: Estimated blood loss was minimal.
[2017-03-22] MEDS: IPRATROPIUM 0.06% NASAL SPRAY 15 ML (ATROVENT) SCH (16:00)
[2017-03-22] MEDS: ALBUTEROL SULFATE 2.5 MG/0.5 ML INH NEB SOLN INH PRN (16:52)
[2017-03-22 18:03] LABS: MEAN CORPUSCULAR HEMOGLOBIN 27.4 pg (27.0-33.0); MEAN CORPUSCULAR VOLUME 88.3 fl (80.0-96.0); PLATELET COUNT, AUTOMATED 177 10^3/uL (150-450); RED CELL DISTRIBUTION WIDTH 18.4 % (11.5-14.5); WHITE BLOOD COUNT 19.5 10^3/uL (4.0-10.0)
[2017-03-22] MEDS: LORazepam 2 MG/ML VIAL (J2060) IV PRN (18:24)
[2017-03-22] MEDS ORDERED: KETOROLAC 30 MG/ML VIAL (J1885) IV ONE (22:00)
[2017-03-23] VITALS (10 sets, daily range): BP systolic 136–194; BP diastolic 72–91
[2017-03-23 00:37] LABS: MEAN CORPUSCULAR HEMOGLOBIN 27.7 pg (27.0-33.0); MEAN CORPUSCULAR HGB CONC 31.3 g/dl (32.0-36.5); MEAN CORPUSCULAR VOLUME 88.7 fl (80.0-96.0); PLATELET COUNT, AUTOMATED 192 10^3/uL (150-450); RED CELL DISTRIBUTION WIDTH 18.3 % (11.5-14.5)
[2017-03-23] MEDS: HumaLOG INSULIN (NovoLOG) PER UNIT SC SCH ×4 (00:46→17:23)
[2017-03-23] MEDS: PANTOPRAZOLE SODIUM 40 MG in D5W 50 ML IV SCH ×2 (02:05→05:48)
[2017-03-23] MEDS: NS 1,000 ML IV SCH (03:54)
[2017-03-23 05:57] LABS: BASO # 0.1 10^3/uL (0.0-0.2); BASO % 0.4 % (0.0-1.0); EOS # 0.2 10^3/uL (0.0-0.50); EOS % 1.7 % (0.0-3.0); LYMPH # 1.2 10^3/uL (1.5-4.5); LYMPH % 9.1 % (24.0-44.0); MEAN CORPUSCULAR HEMOGLOBIN 27.4 pg (27.0-33.0); MEAN CORPUSCULAR HGB CONC 30.8 g/dl (32.0-36.5); MONO # 1.1 10^3/uL (0.0-0.8); MONO % 8.1 % (0.0-5.0); NEUTROPHILS # 10.6 10^3/uL (1.8-7.7); NEUTROPHILS % 79.7 % (36.0-66.0); PLATELET COUNT, AUTOMATED 186 10^3/uL (150-450); RED CELL DISTRIBUTION WIDTH 18.3 % (11.5-14.5); WHITE BLOOD COUNT 13.3 10^3/uL (4.0-10.0)
[2017-03-23 06:03] LABS: ALBUMIN 2.4 GM/DL (3.2-5.2); ALBUMIN/GLOBULIN RATIO 0.69 (1.00-1.93); ALKALINE PHOSPHATASE 72 U/L (45-117); ALT/SGPT 13 U/L (12-78); ANION GAP 8 MEQ/L (8-16); AST/SGOT 6 U/L (7-37); BILIRUBIN,TOTAL 0.6 MG/DL (0.2-1.0); BLOOD UREA NITROGEN 24 MG/DL (7-18); CALCIUM LEVEL 9.2 MG/DL (8.8-10.2); CARBON DIOXIDE LEVEL 26 MEQ/L (21-32); CHLORIDE LEVEL 111 MEQ/L (98-107); CREATININE FOR GFR 0.43 MG/DL (0.70-1.30); GLOMERULAR FILTRATION RATE > 60.0 (>49); GLUCOSE, FASTING 118 MG/DL (80-110); MAGNESIUM LEVEL 1.8 MG/DL (1.8-2.4); POTASSIUM SERUM 3.7 MEQ/L (3.5-5.1); SODIUM LEVEL 145 MEQ/L (136-145); TOTAL PROTEIN 5.9 GM/DL (6.4-8.2)
[2017-03-23] MEDS: FORMOTEROL FUMARATE 20 MCG/2 ML INHALATION SOLUTION (PERFOROMIST) INH SCH ×2 (07:33→20:40)
[2017-03-23] MEDS: LORazepam 2 MG/ML VIAL (J2060) IV PRN ×2 (08:48→16:49)
[2017-03-23] MEDS: FLUTICASONE PROP 0.05% NASAL SPRAY 16 GM (FLONASE) SCH (09:19)
[2017-03-23] MEDS: IPRATROPIUM 0.06% NASAL SPRAY 15 ML (ATROVENT) SCH ×5 (09:19→21:02)
[2017-03-23] MEDS: CEFTRIAXONE SOD 1 GM in APPROPRIATE DILUENT 1 EA IV SCH (09:20)
[2017-03-23] MEDS: PANTOPRAZOLE 40MG INJ (PROTONIX) (C9113) IV SCH ×2 (09:20→21:01)
[2017-03-23] MEDS: ALPRAZolam 0.5 MG TAB PEG SCH (09:44)
[2017-03-23] MEDS: D5W/0.45% SODIUM CHLORIDE 1,000 ML IV SCH (12:51)
[2017-03-23] MEDS: ALBUTEROL SULFATE 2.5 MG/0.5 ML INH NEB SOLN INH PRN ×2 (13:43→22:55)
--- NOTE | 2017-03-23 14:37 | IPNPDOC ---
Text Note Date of Service The patient was seen on 03/23/17. NOTE Subjective: Patient is a 66-year-old male with a PMHx of ALS s/p trach and PEG, Chronic Carter Catheter, Protein calorie malnutrition, hypothyroidism, DM2, GERD , Anxiety, CAD s/p CABG and Stents, COPD, HTN, Kyphosis, DLP and Gout. Presented to the ER with complaints of dark stools for the last 2 days. Was admitted to hospitalist service for suspected upper GI bleeding and received transfusions. Patient has been scheduled for EGD on 03/22. Patient was seen and examined at the bedside. Currently, patient denies any symptoms of anemia. Denies chest pain, shortness of breath, palpitations. Denies lightheadedness or dizziness. He reports that he did not have any bowel movements since his admission. Since the PEG tube has been replaced there is been no bleeding around the PEG tube site that has been noted. Denies nausea or vomiting. Objective: Vitals (See below) General: Lying in bed, no acute distress, comfortable, AAOx3 HEENT: NC, AT, s/p trach CVS: RRR, +S1S2 Lungs: Fair air entry b/l, -w/r/r Abdomen: Soft, ND, NT, +BSx4, s/p PEG Extremities: - Edema, - Calf tenderness Assessment and plan: s/p Dark stools - likely 2/2 erosion of PEG tube - Clinically remains asymptomatic; denies lightheadedness, dizziness, shortness of breath, palpitations or any dark stools - No abdominal tenderness noted - Hg of 6.1 on admission; improved to 10 after transfusion; has remained stable - s/p 5 units of PRBC - c/w Protonix IV BID, s/p IV drip - s/p EGD and PEG tube replacement with Dr. Breen (Double Bass Player) - Hold ASA 81 - Plan to continue with IV Protonix and No feeding until tomorrow ALS s/p trach and PEG Chronic Carter Catheter Protein calorie malnutrition Hypothyroidism - c/w levothyroxine 75 - Will temporarily start IV route DM2 - c/w insulin sliding scale Anxiety - c/w alprazolam, bupropion - We will give Ativan 1 mg IV every 8 hours when necessary while patient is nothing by mouth CAD s/p CABG and Stents - Hold aspirin 81 - c/w atorvastatin COPD HTN - Hold furosemide and Terazosin - c/w metoprolol tartrate with holding parameters - Will start labetalol 20 mg IV twice a day while patient is nothing by mouth Kyphosis DLP - c/w atorvastatin Gout - c/w allopurinol GERD / Gastrointestinal prophylaxis - c/w Protonix drip DVT prophylaxis - c/w SCDs VS,Fishbone, I+O VS, Fishbone, I+O Laboratory Tests 03/22/17 17:44 Red Blood Count 4.12 L, Mean Corpuscular Volume 88.3, Mean Corpuscular Hemoglobin 27.4, Mean Corpuscular Hemoglobin Concent 31.0 L, Red Cell Distribution Width 18.4 H 03/23/17 00:13 Red Blood Count 3.97 L, Mean Corpuscular Volume 88.7, Mean Corpuscular Hemoglobin 27.7, Mean Corpuscular Hemoglobin Concent 31.3 L, Red Cell Distribution Width 18.3 H 03/23/17 05:37 Red Blood Count 4.01 L, Mean Corpuscular Volume 89.0, Mean Corpuscular Hemoglobin 27.4, Mean Corpuscular Hemoglobin Concent 30.8 L, Red Cell Distribution Width 18.3 H, Neutrophils (%) (Auto) 79.7 H, Lymphocytes (%) (Auto ) 9.1 L, Monocytes (%) (Auto) 8.1 H, Eosinophils (%) (Auto) 1.7, Basophils (%) ( Auto) 0.4, Neutrophils # (Auto) 10.6 H, Lymphocytes # (Auto) 1.2 L, Monocytes # (Auto) 1.1 H, Eosinophils # (Auto) 0.2, Basophils # (Auto) 0.1, Calcium Level 9.2, Aspartate Amino Transf (AST/SGOT) 6 L, Alanine Aminotransferase (ALT/SGPT) 13, Alkaline Phosphatase 72, Total Bilirubin 0.6 #, Total Protein 5.9 L, Albumin 2.4 L Vital Signs Date Time Temp Pulse Resp B/P (MAP) Pulse Ox O2 Delivery O2 Flow Rate FiO2 03/23/17 12:24 97.1 93 18 184/83 (116) 98 Trach Collar 4.0 I&O- Last 24 Hours up to 6 AM 03/24/17 06:00 Intake Total 620 ml Output Total 675 ml Balance -55 ml CAROLYN DÍAZ MD Mar 23, 2017 14:37
[2017-03-23] MEDS ORDERED: LABETALOL HCL 100 MG/20 ML VIAL IV ONE (15:00)
[2017-03-23] MEDS: LEVOTHYROXINE 100 MCG (0.1MG) VIAL IV SCH (17:02)
[2017-03-23] MEDS ORDERED: LABETALOL HCL 100 MG/20 ML VIAL IV SCH (21:00)
[2017-03-23] MEDS ORDERED: LORazepam 2 MG/ML VIAL (J2060) IV ONE ×2 (22:30)
[2017-03-24] MEDS: HumaLOG INSULIN (NovoLOG) PER UNIT SC SCH ×4 (00:35→17:54)
[2017-03-24] MEDS: LORazepam 2 MG/ML VIAL (J2060) IV PRN ×2 (01:00→11:45)
[2017-03-24] MEDS: D5W/0.45% SODIUM CHLORIDE 1,000 ML IV SCH ×2 (01:25→19:47)
[2017-03-24 06:29] LABS: BASO % 0.3 % (0.0-1.0); EOS # 0.3 10^3/uL (0.0-0.50); EOS % 2.2 % (0.0-3.0); IMMATURE GRANULOCYTE % 0.9 % (0-0); LYMPH # 1.2 10^3/uL (1.5-4.5); LYMPH % 10.7 % (24.0-44.0); MEAN CORPUSCULAR HEMOGLOBIN 27.2 pg (27.0-33.0); MEAN CORPUSCULAR HGB CONC 30.9 g/dl (32.0-36.5); MEAN CORPUSCULAR VOLUME 88.1 fl (80.0-96.0); MONO % 8.6 % (0.0-5.0); NEUTROPHILS # 8.8 10^3/uL (1.8-7.7); NEUTROPHILS % 77.3 % (36.0-66.0); PLATELET COUNT, AUTOMATED 201 10^3/uL (150-450); RED CELL DISTRIBUTION WIDTH 18.2 % (11.5-14.5); WHITE BLOOD COUNT 11.4 10^3/uL (4.0-10.0)
[2017-03-24 06:43] LABS: ALBUMIN 2.3 GM/DL (3.2-5.2); ALBUMIN/GLOBULIN RATIO 0.62 (1.00-1.93); ALKALINE PHOSPHATASE 77 U/L (45-117); ALT/SGPT 11 U/L (12-78); ANION GAP 8 MEQ/L (8-16); AST/SGOT 8 U/L (7-37); BILIRUBIN,TOTAL 0.6 MG/DL (0.2-1.0); BLOOD UREA NITROGEN 14 MG/DL (7-18); CALCIUM LEVEL 9.2 MG/DL (8.8-10.2); CARBON DIOXIDE LEVEL 26 MEQ/L (21-32); CHLORIDE LEVEL 110 MEQ/L (98-107); CREATININE FOR GFR 0.33 MG/DL (0.70-1.30); GLOMERULAR FILTRATION RATE > 60.0 (>49); GLUCOSE, FASTING 131 MG/DL (80-110); MAGNESIUM LEVEL 1.4 MG/DL (1.8-2.4); POTASSIUM SERUM 3.5 MEQ/L (3.5-5.1); SODIUM LEVEL 144 MEQ/L (136-145)
[2017-03-24 08:00] VITALS: BP 168/84
[2017-03-24] MEDS: FLUTICASONE PROP 0.05% NASAL SPRAY 16 GM (FLONASE) SCH (08:43)
[2017-03-24] MEDS: MAG SULF 1GM/100ML (MAG RUN) 1 GM in APPROPRIATE DILUENT 1 EA IV SCH ×2 (08:43→09:56)
[2017-03-24] MEDS: CEFTRIAXONE SOD 1 GM in APPROPRIATE DILUENT 1 EA IV SCH (08:44)
[2017-03-24] MEDS: LABETALOL HCL 100 MG/20 ML VIAL IV SCH ×2 (08:44→13:44)
[2017-03-24] MEDS: LEVOTHYROXINE 100 MCG (0.1MG) VIAL IV SCH (08:44)
[2017-03-24] MEDS: PANTOPRAZOLE 40MG INJ (PROTONIX) (C9113) IV SCH ×2 (08:44→20:06)
[2017-03-24] MEDS: FORMOTEROL FUMARATE 20 MCG/2 ML INHALATION SOLUTION (PERFOROMIST) INH SCH ×2 (09:15→18:36)
[2017-03-24] MEDS: IPRATROPIUM 0.06% NASAL SPRAY 15 ML (ATROVENT) SCH ×3 (09:55→21:00)
[2017-03-24] MEDS: ACETAMINOPHEN 650 MG SUPP PR PRN ×2 (11:46→20:03)
[2017-03-24 12:00] VITALS: BP 163/79
[2017-03-24 14:15] VITALS: BP 155/68
--- NOTE | 2017-03-24 15:41 | IPNPDOC ---
Text Note Date of Service The patient was seen on 03/24/17. NOTE Subjective: Patient is a 66-year-old male with a PMHx of ALS s/p trach and PEG, Chronic Carter Catheter, Protein calorie malnutrition, hypothyroidism, DM2, GERD , Anxiety, CAD s/p CABG and Stents, COPD, HTN, Kyphosis, DLP and Gout. Presented to the ER with complaints of dark stools for the last 2 days. Was admitted to hospitalist service for suspected upper GI bleeding and received transfusions. Patient has been scheduled for EGD on 03/22. Patient was seen and examined at the bedside. Patient denies any symptoms of anemia. Denies any chest pain, shortness of breath, palpitations, lightheadedness. He has not had any bowel movements. We are planning to restart his feeding and PEG tube used today. Objective: Vitals (See below) General: Lying in bed, no acute distress, comfortable, AAOx3 HEENT: NC, AT, s/p trach CVS: RRR, +S1S2 Lungs: Fair air entry b/l, -w/r/r Abdomen: Soft, ND, NT, +BSx4, s/p PEG Extremities: - Edema, - Calf tenderness Assessment and plan: s/p Dark stools - likely 2/2 erosion of PEG tube - Remains asymptomatic without any abdominal tenderness, bowel sounds are been noted, PEG tube in place - Hg of 6.1 on admission; improved to 10 after transfusion; has remained stable - s/p 5 units of PRBC - c/w Protonix IV BID, s/p IV drip - s/p EGD and PEG tube replacement with Dr. Breen (Gerontology Aide) - Will restart ASA 81 tomorrow - Will restart feeding today and PEG tube use as it has been more than 48 hours since the procedure ALS s/p trach and PEG Chronic Carter Catheter Protein calorie malnutrition Hypothyroidism - c/w levothyroxine 75 - Re-start oral DM2 - c/w insulin sliding scale Anxiety - c/w alprazolam, bupropion - Re-start oral CAD s/p CABG and Stents - Hold aspirin 81 - c/w atorvastatin COPD HTN - Hold furosemide and Terazosin - c/w metoprolol tartrate with holding parameters - Re-start oral Kyphosis DLP - c/w atorvastatin Gout - c/w allopurinol GERD / Gastrointestinal prophylaxis - c/w Protonix drip DVT prophylaxis - c/w SCDs VS,Fishbone, I+O VS, Alexandrae, I+O Laboratory Tests 03/23/17 22:57 03/24/17 05:27 Red Blood Count 3.86 L, Mean Corpuscular Volume 88.1, Mean Corpuscular Hemoglobin 27.2, Mean Corpuscular Hemoglobin Concent 30.9 L, Red Cell Distribution Width 18.2 H, Neutrophils (%) (Auto) 77.3 H, Lymphocytes (%) (Auto ) 10.7 L, Monocytes (%) (Auto) 8.6 H, Eosinophils (%) (Auto) 2.2, Basophils (%) (Auto) 0.3, Neutrophils # (Auto) 8.8 H, Lymphocytes # (Auto) 1.2 L, Monocytes # (Auto) 1.0 H, Eosinophils # (Auto) 0.3, Basophils # (Auto) 0.0, Calcium Level 9.2, Aspartate Amino Transf (AST/SGOT) 8, Alanine Aminotransferase (ALT/SGPT) 11 L, Alkaline Phosphatase 77, Total Bilirubin 0.6, Total Protein 6.0 L, Albumin 2.3 L Vital Signs Date Time Temp Pulse Resp B/P (MAP) Pulse Ox O2 Delivery O2 Flow Rate FiO2 03/24/17 14:15 155/68 (97) 03/24/17 13:44 87 03/24/17 12:00 97.7 22 99 Trach Collar 4.0 I&O- Last 24 Hours up to 6 AM 03/25/17 06:00 Intake Total 440 ml Balance 440 ml CAROLYN DÍAZ MD Mar 24, 2017 15:41
[2017-03-24 16:00] VITALS: BP 147/70
[2017-03-24 20:00] VITALS: BP 174/79
[2017-03-24] MEDS: ASCORBIC ACID 500 MG TAB PEG SCH (20:07)
[2017-03-24] MEDS: ALPRAZolam 0.5 MG TAB PEG SCH (20:07)
[2017-03-24] MEDS: ATORVASTATIN 20 MG TAB PEG SCH (20:07)
[2017-03-24] MEDS: VITAMIN D 1,000 INTERNATIONAL UNITS TABLET PEG SCH (20:07)
[2017-03-24] MEDS: METOPROLOL TART 12.5 MG PER 1/2 TAB PEG SCH (20:07)
[2017-03-24] MEDS: BACLOFEN 10 MG TAB PEG SCH (20:08)
[2017-03-24] MEDS: ALLOPURINOL 100 MG TAB PEG SCH (20:08)
[2017-03-24] MEDS: ALBUTEROL SULFATE 2.5 MG/0.5 ML INH NEB SOLN INH PRN (23:14)
[2017-03-25] VITALS (7 sets, daily range): BP systolic 103–187; BP diastolic 54–90
[2017-03-25] MEDS: hydrOXYzine 50 MG TAB PEG PRN ×2 (00:25→05:55)
[2017-03-25] MEDS: HumaLOG INSULIN (NovoLOG) PER UNIT SC SCH ×4 (00:26→17:19)
[2017-03-25] MEDS: ALBUTEROL SULFATE 2.5 MG/0.5 ML INH NEB SOLN INH PRN ×4 (02:05→21:14)
[2017-03-25] MEDS ORDERED: LORazepam 2 MG/ML VIAL (J2060) IV ONE (03:15)
[2017-03-25 05:24] LABS: BASO % 0.1 % (0.0-1.0); EOS # 0.2 10^3/uL (0.0-0.50); EOS % 1.8 % (0.0-3.0); IMMATURE GRANULOCYTE % 0.4 % (0-0); LYMPH # 0.9 10^3/uL (1.5-4.5); MEAN CORPUSCULAR HEMOGLOBIN 27.4 pg (27.0-33.0); MEAN CORPUSCULAR VOLUME 88.6 fl (80.0-96.0); MONO # 1.1 10^3/uL (0.0-0.8); MONO % 8.5 % (0.0-5.0); NEUTROPHILS % 82.2 % (36.0-66.0); PLATELET COUNT, AUTOMATED 212 10^3/uL (150-450); RED CELL DISTRIBUTION WIDTH 17.9 % (11.5-14.5); WHITE BLOOD COUNT 13.4 10^3/uL (4.0-10.0)
[2017-03-25 05:49] LABS: ALBUMIN 2.3 GM/DL (3.2-5.2); ALBUMIN/GLOBULIN RATIO 0.56 (1.00-1.93); ALKALINE PHOSPHATASE 93 U/L (45-117); ALT/SGPT 15 U/L (12-78); ANION GAP 8 MEQ/L (8-16); AST/SGOT 9 U/L (7-37); BILIRUBIN,TOTAL 0.6 MG/DL (0.2-1.0); BLOOD UREA NITROGEN 8 MG/DL (7-18); CARBON DIOXIDE LEVEL 28 MEQ/L (21-32); CHLORIDE LEVEL 106 MEQ/L (98-107); CREATININE FOR GFR 0.27 MG/DL (0.70-1.30); GLOMERULAR FILTRATION RATE > 60.0 (>49); GLUCOSE, FASTING 140 MG/DL (80-110); MAGNESIUM LEVEL 1.6 MG/DL (1.8-2.4); POTASSIUM SERUM 3.2 MEQ/L (3.5-5.1); SODIUM LEVEL 142 MEQ/L (136-145); TOTAL PROTEIN 6.4 GM/DL (6.4-8.2)
[2017-03-25] MEDS: LEVOTHYROXINE 75MCG TABLET (0.075MG) PEG SCH (05:55)
[2017-03-25] MEDS ORDERED: MAG SULF 1GM/100ML (MAG RUN) 1 GM in APPROPRIATE DILUENT 1 EA IV ONE (07:15)
[2017-03-25] MEDS ORDERED: POTASSIUM CHLORIDE 10 MEQ SR TABLET PO ONE (07:15)
[2017-03-25] MEDS: FORMOTEROL FUMARATE 20 MCG/2 ML INHALATION SOLUTION (PERFOROMIST) INH SCH ×2 (07:43→21:14)
[2017-03-25] MEDS ORDERED: POTASSIUM CHLORIDE 10% LIQ 20 MEQ/15 ML UDC PEG ONE (08:00)
[2017-03-25] MEDS ORDERED: PIPERACILLIN/TAZOBACTAM SOD 3.375 GM in APPROPRIATE DILUENT 1 EA IV SCH (08:00)
--- NOTE | 2017-03-25 08:26 | PHACANCOPD ---
PHARMACY VANCOMYCIN DOSING Pt Demographics Demographics Patient Age:66 , Weight:64.600 , Gender: male Adjusted Body Weight Date: 03/25/17, Adjusted Body Weight: [64.6] Kg Events Past 24 Hours Events Past 24 Hours: NO: Dialysis, Diuretic Therapy, Change in CrCl, Fever, Elevation in WBC, Pending Diagnostics, Pending Procedures, Other Vancomycin Vancomycin indication: mrsa COVERAGE Vancomycin Target Ranges: 15-20 mcg/ml Vancomycin Load Y/N: Yes Load Dose Date Time Vancomycin Load Dose: 2G Date: 03/25/17 Time: 10:00 Vancomycin Dose Date: 03/25/17. Current Vancomycin Dose: [1G IV Q 12H] Intermittent Dosing?: No Labs Labs Item Value Date Time White Blood Count 11.4 10^3/uL H 03/24/17 0527 White Blood Count 13.4 10^3/uL H 03/25/17 0435 Creatinine 0.43 MG/DL L 03/23/17 0537 Creatinine 0.33 MG/DL L 03/24/17 0527 Creatinine 0.27 MG/DL L 03/25/17 0435 Micro Microbiology 03/25/17 Blood Culture, Received Pending 03/25/17 Blood Culture, Received Pending 03/21/17 Urine Culture - Final, Complete Creatinine Clearance Date:03/25/17. Creatinine Clearance: [261.85ML/MIN]. Assessment and Plan Maintaining Current Dose?: Yes Reason for dose change: No Dose Change Pharmacist Note Pharmacist Note Date: 03/25/17. Pharmacist note: Pt is a 66 year old male being treated with vancomycin for MRSA coverage goal trough 15-20mcg/ml. Pt has been treated here at [facility] with vancomycin in the recent past both in january and october. To achieve goal a 2g loading dose will be started 03/25 @10:00. Maintenance therapy will consist of 1g iv q 12h starting 03/25 @22:00. A trough was scheduled before the 4th dose on 03/26 @21. We will continue to monitor and adjust dose as needed. [facility] Mar 25, 2017 08:26
[2017-03-25] MEDS: MULTIVITAMINS CHILDREN'S CHEWABLE TABLET PO SCH (09:00)
[2017-03-25] MEDS: buPROPion 75 MG TAB PEG SCH (09:00)
[2017-03-25] MEDS: VITAMIN D 1,000 INTERNATIONAL UNITS TABLET PEG SCH ×2 (09:02→21:38)
[2017-03-25] MEDS: CETIRIZINE (ZyrTEC) 10 MG TAB PEG SCH (09:02)
[2017-03-25] MEDS: PANTOPRAZOLE 40MG INJ (PROTONIX) (C9113) IV SCH ×2 (09:02→21:37)
[2017-03-25] MEDS: METOPROLOL TART 12.5 MG PER 1/2 TAB PEG SCH ×2 (09:03→21:00)
[2017-03-25] MEDS: IPRATROPIUM 0.06% NASAL SPRAY 15 ML (ATROVENT) SCH ×3 (09:03→21:00)
[2017-03-25] MEDS: MAGNESIUM OXIDE 400 MG TAB (MAG-OX) PEG SCH (09:03)
[2017-03-25] MEDS: ALPRAZolam 0.5 MG TAB PEG SCH ×3 (09:03→21:38)
[2017-03-25] MEDS: FOLIC ACID 1 MG TAB PEG SCH (09:03)
[2017-03-25] MEDS: ASCORBIC ACID 500 MG TAB PEG SCH ×2 (09:03→21:38)
--- NOTE | 2017-03-25 09:03 | REP ---
Clinical: Ventilator associated pneumonia. Comparison: 11/10/2016. Findings: Moderate bilateral pleural effusions are appreciated with moderate to significant perihilar-to- lower lobe consolidations (left greater than right) minimal similar airspace disease is also identified extending to the perihilar upper lobes and is consistent with multifocal pneumonia. 2.2 cm focal area of density is identified along the medial right apex (images 18 - 25) which is increased from prior examination and while this may represent a small focus of pneumonia, mass/malignancy cannot be excluded. Chronic age-related interstitial changes and findings to suggest mild pulmonary vascular congestion are suspected. Reactive mediastinal and lymph nodes measure up to approximately 10 mm. Atherosclerotic changes to the thoracic aorta and coronary arteries noted without cardiomegaly or pericardial effusion. Tracheostomy is identified approximately 5.2 cm above the peter. Impression: 1. Moderate bilateral pleural effusions and moderate to significant perihilar and lower lobe consolidations (left greater than right) consistent with multifocal pneumonia. Reactive mediastinal lymph nodes up to 10 mm noted. 2. A 2.2 cm area of density identified in the medial right apex may reflect similar small focus of pneumonia. However pathology including malignancy cannot be excluded. Signed by Josh Saeed MD 03/25/2017 08:55 A
[2017-03-25] MEDS: FLUTICASONE PROP 0.05% NASAL SPRAY 16 GM (FLONASE) SCH (09:04)
[2017-03-25] MEDS: PIPERACILLIN/TAZOBACTAM SOD 3.375 GM in APPROPRIATE DILUENT 1 EA IV SCH ×2 (09:05→16:13)
[2017-03-25] MEDS ORDERED: NS 1,000 ML IV SCH (09:15)
[2017-03-25] MEDS: ALLOPURINOL 100 MG TAB PEG SCH ×2 (09:23→21:38)
--- NOTE | 2017-03-25 09:25 | IPNPDOC ---
Text Note Date of Service The patient was seen on 03/25/17. NOTE Subjective: Patient is a 66-year-old male with a PMHx of ALS s/p trach and PEG, Chronic Carter Catheter, Protein calorie malnutrition, hypothyroidism, DM2, GERD , Anxiety, CAD s/p CABG and Stents, COPD, HTN, Kyphosis, DLP and Gout. Presented to the ER with complaints of dark stools for the last 2 days. Was admitted to hospitalist service for suspected upper GI bleeding and received transfusions. Patient has been scheduled for EGD on 03/22. Patient was seen and examined at the bedside. This morning patient was found to be tachycardic and tachypneic. He denied any chest pain or palpitations. Reported some difficulty breathing. She was also found to have increased output via suctioning. Remained afebrile. Denied any abdominal pain, diarrhea or dysuria. Objective: Vitals (See below) General: Lying in bed, no acute distress, comfortable, AAOx3 HEENT: NC, AT, s/p trach CVS: RRR, +S1S2 Lungs: Fair air entry b/l, + rhonchi Abdomen: Soft, ND, NT, +BSx4, s/p PEG Extremities: - Edema, - Calf tenderness Assessment and plan: s/p Dark stools - likely 2/2 erosion of PEG tube - Remains asymptomatic without any abdominal tenderness, bowel sounds are been noted, PEG tube in place - Hg of 6.1 on admission; improved to 10 after transfusion; has remained stable - s/p 5 units of PRBC - c/w Protonix IV BID, s/p IV drip - s/p EGD and PEG tube replacement with Dr. Breen (Clamp Forklift Operator) - Restart ASA 81 today - PEG feeding was restarted yesterday, however, has been having issues with increased drainage around PEG tube site - Will have GI re-evaluate Leukocytosis - likely 2/2 bilateral multifocal pneumonia, possibly secondary to aspiration - She presented with leukocytosis that was resolving, however, has shown an elevation this morning - Physical reveals that he was tachycardic and tachypneic, remains afebrile - Physical with bilateral rhonchi - No lactic acidosis - Blood cultures 03/25: pending; Sputum culture 03/25: pending - Chest CT 03/25: Moderate bilateral pleural effusions and moderate to significant perihilar and lower lobe consolidation (L>R), consistent with multifocal pneumonia. Reactive mediastinal LNs up to 1 cm, 2.2 cm area of density identified in the medial right apex may reflect similar small focus of pneumonia, malignancy cannot be excluded - Will start Zosyn and Vancomycin (Day #1); s/p ceftriaxone (Day #4) Elevated troponin - likely 2/2 demand ischemia - Denies any chest pain or palpitations - EKG with sinus tachycardia, evidence of ischemic change - however similar to EKG from 01/2017 - Troponin first set 0.18 - Will continue to follow troponin trend - ASA 81 has been restarted ALS s/p trach and PEG Chronic Carter Catheter Protein calorie malnutrition Hypothyroidism - c/w levothyroxine 75 DM2 - c/w insulin sliding scale Anxiety - c/w alprazolam, bupropion CAD s/p CABG and Stents - c/w ASA 81 and atorvastatin COPD HTN - Hold furosemide and Terazosin - c/w metoprolol tartrate with holding parameters Kyphosis DLP - c/w atorvastatin Gout - c/w allopurinol GERD / Gastrointestinal prophylaxis - c/w Protonix drip DVT prophylaxis - c/w SCDs VS,Fishbone, I+O VS, Fishbone, I+O Laboratory Tests 03/25/17 04:35 Red Blood Count 4.30, Mean Corpuscular Volume 88.6, Mean Corpuscular Hemoglobin 27.4, Mean Corpuscular Hemoglobin Concent 31.0 L, Red Cell Distribution Width 17.9 H, Neutrophils (%) (Auto) 82.2 H, Lymphocytes (%) (Auto) 7.0 L, Monocytes ( %) (Auto) 8.5 H, Eosinophils (%) (Auto) 1.8, Basophils (%) (Auto) 0.1, Neutrophils # (Auto) 11.0 H, Lymphocytes # (Auto) 0.9 L, Monocytes # (Auto) 1.1 H, Eosinophils # (Auto) 0.2, Basophils # (Auto) 0.0, Calcium Level 9.0, Aspartate Amino Transf (AST/SGOT) 9, Alanine Aminotransferase (ALT/SGPT) 15, Alkaline Phosphatase 93, Total Bilirubin 0.6, Total Protein 6.4, Albumin 2.3 L Vital Signs Date Time Temp Pulse Resp B/P (MAP) Pulse Ox O2 Delivery O2 Flow Rate FiO2 03/25/17 09:03 126 133/71 03/25/17 08:33 97.9 03/25/17 08:05 20 92 Ventilator 03/25/17 04:00 4.0 CAROLYN DÍAZ MD Mar 25, 2017 09:25
[2017-03-25] MEDS ORDERED: VANCOMYCIN HCL 750 MG, VIAL MATE ADAPTER 1 EACH in D5W 250 ML IV SCH (10:00)
[2017-03-25] MEDS: ASPIRIN 81 MG CHEW TABLET PEG SCH (10:28)
[2017-03-25] MEDS: VANCOMYCIN HCL 1,000 MG, VIAL MATE ADAPTER 1 EACH in D5W 250 ML IV SCH ×2 (10:29→21:37)
[2017-03-25] MEDS: KCL 10MEQ IN 100ML SWI (KRUN) 10 MEQ in APPROPRIATE DILUENT 1 EA IV SCH ×4 (10:35→11:39)
[2017-03-25] MEDS ORDERED: VANCOMYCIN HCL 1,000 MG, VIAL MATE ADAPTER 1 EACH in D5W 250 ML IV ONE (11:00)
--- NOTE | 2017-03-25 15:38 | ECGEPIP ---
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 02/10/2017 Electronically Signed On 03-25-2017 15:38:14 EST by Daniel Rose
--- NOTE | 2017-03-25 15:41 | ECGEPIP ---
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
[2017-03-25] MEDS: ERYTHROMYCIN LACTOBIONATE INJ 500 MG in NS 250 ML IV SCH (17:19)
--- NOTE | 2017-03-25 17:58 | IPNPDOC ---
Date Seen The patient was seen on 03/25/17. Progress Note interval history: Patient was placed on NPO for 48 hours and given IV PPi drip/ intermittent IV pushes. Patient did not have any post procedure complications. Due the burried bumper syndrome the surgeons are consulted to review the PEG tube site. I personally discussed the case with Dr. wilkins about the Endoscopic findings and further plan. Exam: vitals: Afebrile. Stable BP. Tracheostomy status and On full ventilator support. Chest: Bilateral clear air entry. Abdomen: Soft, non distended, No subcutaneous emphysema. PEG tube insertion site - un healthy granulation tissue. Slight leakage of feeds from adjacent to the PEG tube. Labs: Reviewed. Stable HB.HCT and no further bleeding from PEG tube site. 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 - Poor wound healing at the PEG tube site. Unhealthy granulation tissue. Recommendations: -- Will continue IV PPI twice daily for now and upon discharge to change to per PEG tube Pantoprazole 40 mg twice daily. -- Can resume all the Per PEG tube medications. -- Start on Erythromycin 250 mg twice daily -- Start on continue drip of the PEG tube feeding at the rate of 50 cc/ hour. -- Check for residue every 4 hours and if the residue is more than 50 ml needs to change the feeding rate. -- Patient needs the head end elevated to > 45 degrees while feeding. -- If there is persistent leakage and non healing of the PEG site will need surgery follow up to remove the PEG tube with closure of the PEG site with sutures and place another surgical gastrostomy at different place. Reviewed the same with Dr. Wilkins. -- Upon discharge patient to follow up with is primary GI. -- recall GI if any change in status. Plan of care reviewed with patient and his next of kin and primary team. JOSE COOL MD Mar 25, 2017 17:58
[2017-03-25] MEDS: ATORVASTATIN 20 MG TAB PEG SCH (21:38)
[2017-03-25] MEDS: BACLOFEN 10 MG TAB PEG SCH (21:38)
[2017-03-26] VITALS (7 sets, daily range): BP systolic 99–135; BP diastolic 52–69
[2017-03-26] MEDS: PIPERACILLIN/TAZOBACTAM SOD 3.375 GM in APPROPRIATE DILUENT 1 EA IV SCH ×3 (00:35→16:30)
[2017-03-26] MEDS: HumaLOG INSULIN (NovoLOG) PER UNIT SC SCH ×4 (00:36→17:29)
[2017-03-26 05:24] LABS: BASO % 0.3 % (0.0-1.0); EOS # 0.2 10^3/uL (0.0-0.50); EOS % 2.1 % (0.0-3.0); IMMATURE GRANULOCYTE % 0.7 % (0-0); LYMPH # 1.5 10^3/uL (1.5-4.5); LYMPH % 15.5 % (24.0-44.0); MEAN CORPUSCULAR HEMOGLOBIN 27.6 pg (27.0-33.0); MEAN CORPUSCULAR HGB CONC 30.9 g/dl (32.0-36.5); MEAN CORPUSCULAR VOLUME 89.4 fl (80.0-96.0); MONO # 0.9 10^3/uL (0.0-0.8); NEUTROPHILS # 7.2 10^3/uL (1.8-7.7); NEUTROPHILS % 72.4 % (36.0-66.0); PLATELET COUNT, AUTOMATED 222 10^3/uL (150-450); RED CELL DISTRIBUTION WIDTH 17.8 % (11.5-14.5); WHITE BLOOD COUNT 9.9 10^3/uL (4.0-10.0)
[2017-03-26] MEDS: ALBUTEROL SULFATE 2.5 MG/0.5 ML INH NEB SOLN INH PRN ×4 (05:30→19:58)
[2017-03-26 05:43] LABS: ALBUMIN 2.1 GM/DL (3.2-5.2); ALBUMIN/GLOBULIN RATIO 0.57 (1.00-1.93); ALKALINE PHOSPHATASE 77 U/L (45-117); ALT/SGPT 13 U/L (12-78); ANION GAP 7 MEQ/L (8-16); AST/SGOT 10 U/L (7-37); BILIRUBIN,TOTAL 0.4 MG/DL (0.2-1.0); BLOOD UREA NITROGEN 17 MG/DL (7-18); CALCIUM LEVEL 8.9 MG/DL (8.8-10.2); CARBON DIOXIDE LEVEL 28 MEQ/L (21-32); CHLORIDE LEVEL 107 MEQ/L (98-107); CREATININE FOR GFR 0.75 MG/DL (0.70-1.30); GLUCOSE, FASTING 126 MG/DL (80-110); MAGNESIUM LEVEL 1.9 MG/DL (1.8-2.4); POTASSIUM SERUM 3.5 MEQ/L (3.5-5.1); SODIUM LEVEL 142 MEQ/L (136-145); TOTAL PROTEIN 5.8 GM/DL (6.4-8.2)
[2017-03-26 05:44] LABS: GLOMERULAR FILTRATION RATE > 60.0 (>49)
[2017-03-26] MEDS: ERYTHROMYCIN LACTOBIONATE INJ 500 MG in NS 250 ML IV SCH ×2 (05:59→17:29)
[2017-03-26] MEDS: LEVOTHYROXINE 75MCG TABLET (0.075MG) PEG SCH (05:59)
[2017-03-26] MEDS: FORMOTEROL FUMARATE 20 MCG/2 ML INHALATION SOLUTION (PERFOROMIST) INH SCH ×2 (08:20→19:58)
[2017-03-26] MEDS: PANTOPRAZOLE 40MG INJ (PROTONIX) (C9113) IV SCH ×2 (08:49→21:14)
[2017-03-26] MEDS: ASPIRIN 81 MG CHEW TABLET PEG SCH (08:50)
[2017-03-26] MEDS: ALPRAZolam 0.5 MG TAB PEG SCH ×3 (08:50→21:14)
[2017-03-26] MEDS: MULTIVITAMINS CHILDREN'S CHEWABLE TABLET PO SCH (08:50)
[2017-03-26] MEDS: FOLIC ACID 1 MG TAB PEG SCH (08:50)
[2017-03-26] MEDS: MAGNESIUM OXIDE 400 MG TAB (MAG-OX) PEG SCH (08:50)
[2017-03-26] MEDS: FLUTICASONE PROP 0.05% NASAL SPRAY 16 GM (FLONASE) SCH (08:51)
[2017-03-26] MEDS: METOPROLOL TART 12.5 MG PER 1/2 TAB PEG SCH (08:51)
[2017-03-26] MEDS: ASCORBIC ACID 500 MG TAB PEG SCH ×2 (08:51→21:14)
[2017-03-26] MEDS: ALLOPURINOL 100 MG TAB PEG SCH ×2 (08:51→21:14)
[2017-03-26] MEDS: VITAMIN D 1,000 INTERNATIONAL UNITS TABLET PEG SCH ×2 (08:51→21:14)
[2017-03-26] MEDS: IPRATROPIUM 0.06% NASAL SPRAY 15 ML (ATROVENT) SCH ×3 (08:51→21:15)
[2017-03-26] MEDS: CETIRIZINE (ZyrTEC) 10 MG TAB PEG SCH (08:51)
[2017-03-26] MEDS: buPROPion 75 MG TAB PEG SCH (08:51)
[2017-03-26] MEDS: VANCOMYCIN HCL 1,000 MG, VIAL MATE ADAPTER 1 EACH in D5W 250 ML IV SCH ×2 (10:23→21:22)
[2017-03-26] MEDS ORDERED: SODIUM CHLORIDE 0.9% 1000 ML IV ONE (10:30)
--- NOTE | 2017-03-26 10:34 | IPNPDOC ---
Text Note Date of Service The patient was seen on 03/26/17. NOTE Subjective: Patient is a 66-year-old male with a PMHx of ALS s/p trach and PEG, Chronic Carter Catheter, Protein calorie malnutrition, hypothyroidism, DM2, GERD , Anxiety, CAD s/p CABG and Stents, COPD, HTN, Kyphosis, DLP and Gout. Presented to the ER with complaints of dark stools for the last 2 days. Was admitted to hospitalist service for suspected upper GI bleeding and received transfusions. Patient has been scheduled for EGD on 03/22. Patient was seen and examined at the bedside. Patient denies any events overnight or any new complaints this morning. He denied any chest pain, shortness of breath or palpitations. He is noted to have drainage around his PEG tube site this morning, however, has not had any leakage overnight. Objective: Vitals (See below) General: Lying in bed, no acute distress, comfortable, AAOx3 HEENT: NC, AT, s/p trach CVS: RRR, +S1S2 Lungs: Fair air entry b/l, + rhonchi Abdomen: Soft, ND, NT, +BSx4, s/p PEG Extremities: - Edema, - Calf tenderness Assessment and plan: s/p Dark stools - likely 2/2 erosion of PEG tube - Hg of 6.1 on admission; improved to 10 after transfusion; has remained stable - s/p 5 units of PRBC - c/w Protonix IV BID, s/p IV drip - s/p EGD and PEG tube replacement with Dr. Breen (Chief Science Officer) PEG tube dysfunction - PEG feeding was again restarted yesterday - GI has re-evaluated PEG tube site for leaking - Patient's position has been adjusted; will continue to evaluate for leakage - If leakage persists will need to have Surgery completely redo PEG tube with new insertion site s/p Leukocytosis - likely 2/2 bilateral multifocal pneumonia, possibly secondary to aspiration - Physical still reveals course lung sounds bilaterally - WBC improved, No lactic acidosis - Blood cultures 03/25: negative at 24 hours; Sputum culture 03/26: pending - Chest CT 03/25: Moderate bilateral pleural effusions and moderate to significant perihilar and lower lobe consolidation (L>R), consistent with multifocal pneumonia. Reactive mediastinal LNs up to 1 cm, 2.2 cm area of density identified in the medial right apex may reflect similar small focus of pneumonia, malignancy cannot be excluded - Will start Zosyn and Vancomycin (Day #2); s/p ceftriaxone (4 days) Elevated troponin - likely 2/2 demand ischemia - Denies any chest pain or palpitations - EKG with sinus tachycardia, evidence of ischemic change - however similar to EKG from 01/2017 - Troponin first set 0.18, 0.51, 0.51 - c/w ASA 81 ALS s/p trach and PEG Chronic Carter Catheter Protein calorie malnutrition Hypothyroidism - c/w levothyroxine 75 DM2 - c/w insulin sliding scale Anxiety - c/w alprazolam, bupropion CAD s/p CABG and Stents - c/w ASA 81 and atorvastatin COPD HTN - Mildly hypotensive this morning - Will give IV fluid bolus - Hold furosemide and Terazosin - c/w metoprolol tartrate with holding parameters; will reduce dose Kyphosis DLP - c/w atorvastatin Gout - c/w allopurinol GERD / Gastrointestinal prophylaxis - c/w Protonix drip DVT prophylaxis - c/w SCDs VS,Fishbone, I+O VS, Fishbone, I+O Laboratory Tests 03/26/17 04:33 Red Blood Count 3.98 L, Mean Corpuscular Volume 89.4, Mean Corpuscular Hemoglobin 27.6, Mean Corpuscular Hemoglobin Concent 30.9 L, Red Cell Distribution Width 17.8 H, Neutrophils (%) (Auto) 72.4 H, Lymphocytes (%) (Auto ) 15.5 L, Monocytes (%) (Auto) 9.0 H, Eosinophils (%) (Auto) 2.1, Basophils (%) (Auto) 0.3, Neutrophils # (Auto) 7.2, Lymphocytes # (Auto) 1.5, Monocytes # ( Auto) 0.9 H, Eosinophils # (Auto) 0.2, Basophils # (Auto) 0.0, Calcium Level 8.9 , Aspartate Amino Transf (AST/SGOT) 10, Alanine Aminotransferase (ALT/SGPT) 13, Alkaline Phosphatase 77, Total Bilirubin 0.4, Total Protein 5.8 L, Albumin 2.1 L Vital Signs Date Time Temp Pulse Resp B/P (MAP) Pulse Ox O2 Delivery O2 Flow Rate FiO2 03/26/17 08:51 77 99/56 03/26/17 08:00 96.7 18 97 Ventilator 4.0 CAROLYN DÍAZ MD Mar 26, 2017 10:26
[2017-03-26] MEDS: NS 1,000 ML IV SCH (13:14)
[2017-03-26] MEDS: BACLOFEN 10 MG TAB PEG SCH (21:14)
[2017-03-26] MEDS: ATORVASTATIN 20 MG TAB PEG SCH (21:14)
[2017-03-26] MEDS: METOPROLOL TART 25 MG TABLET PEG SCH (21:22)
--- NOTE | 2017-03-26 21:46 | PHACANCOPD ---
PHARMACY VANCOMYCIN DOSING Pt Demographics Demographics Patient Age:66 , Weight:69.100 , Gender: male Adjusted Body Weight Date: 03/25/17, Adjusted Body Weight: [64.6] Kg Events Past 24 Hours Events Past 24 Hours: NO: Dialysis, Diuretic Therapy, Change in CrCl, Fever, Elevation in WBC, Pending Diagnostics, Pending Procedures, Other Vancomycin Vancomycin indication: mrsa COVERAGE Vancomycin Target Ranges: 15-20 mcg/ml Vancomycin Load Y/N: Yes Load Dose Date Time Vancomycin Load Dose: 2G Date: 03/25/17 Time: 10:00 Vancomycin Dose Date: 03/26/17. Current Vancomycin Dose: [1G IV Q 24H] Intermittent Dosing?: No Labs Labs Item Value Date Time White Blood Count 9.9 10^3/uL 03/26/17432 Creatinine 0.75 MG/DL # 03/26/17432 Blood Urea Nitrogen 17 MG/DL # 03/26/17432 Vancomycin Level Trough 26.1 UG/ML *H 03/26/172052 Vital Signs Label Value Date Time Patient Temperature 97.0 degrees F 03/26/172044 Temperature Source Temporal 03/26/172044 Micro Microbiology 03/25/17 Blood Culture - Preliminary, Resulted No growth after 24 hours . All specim... 03/25/17 Blood Culture - Preliminary, Resulted No growth after 24 hours . All specim... 03/26/17 Gram Stain - Final, Resulted 03/26/17 Sputum Culture, Resulted Pending 03/21/17 Urine Culture - Final, Complete Creatinine Clearance Date:03/26/17. Creatinine Clearance: [94ML/MIN]. Pending Labs Trough 03-28 Assessment and Plan Maintaining Current Dose?: No Reason for dose change: Trough too high Pharmacist Note Pharmacist Note Date: 03/25/17. Pharmacist note: Trough of 26.1 is above target range. Dose reduced to 1000mg q24h with a trough ordered for 03-28. Will continue to monitor and make adjustments as needed. ALINA YAÑEZ [facility] Mar 26, 2017 21:46
[2017-03-27] MEDS: NS 1,000 ML IV SCH (00:24)
[2017-03-27] MEDS: HumaLOG INSULIN (NovoLOG) PER UNIT SC SCH ×4 (00:25→17:54)
[2017-03-27] MEDS: PIPERACILLIN/TAZOBACTAM SOD 3.375 GM in APPROPRIATE DILUENT 1 EA IV SCH ×3 (00:25→17:54)
[2017-03-27] MEDS: ALBUTEROL SULFATE 2.5 MG/0.5 ML INH NEB SOLN INH PRN ×5 (00:55→23:36)
[2017-03-27 04:56] VITALS: BP 140/83
[2017-03-27] MEDS: LEVOTHYROXINE 75MCG TABLET (0.075MG) PEG SCH (05:33)
[2017-03-27] MEDS: ERYTHROMYCIN LACTOBIONATE INJ 500 MG in NS 250 ML IV SCH (05:33)
[2017-03-27 05:41] LABS: BASO % 0.3 % (0.0-1.0); EOS # 0.2 10^3/uL (0.0-0.50); EOS % 2.4 % (0.0-3.0); IMMATURE GRANULOCYTE % 0.7 % (0-0); LYMPH # 1.3 10^3/uL (1.5-4.5); LYMPH % 14.6 % (24.0-44.0); MEAN CORPUSCULAR HGB CONC 30.6 g/dl (32.0-36.5); MEAN CORPUSCULAR VOLUME 88.4 fl (80.0-96.0); MONO # 0.7 10^3/uL (0.0-0.8); MONO % 8.1 % (0.0-5.0); NEUTROPHILS # 6.4 10^3/uL (1.8-7.7); NEUTROPHILS % 73.9 % (36.0-66.0); PLATELET COUNT, AUTOMATED 188 10^3/uL (150-450); RED CELL DISTRIBUTION WIDTH 17.4 % (11.5-14.5); WHITE BLOOD COUNT 8.6 10^3/uL (4.0-10.0)
[2017-03-27 05:54] LABS: ALBUMIN 1.9 GM/DL (3.2-5.2); ALBUMIN/GLOBULIN RATIO 0.54 (1.00-1.93); ALKALINE PHOSPHATASE 74 U/L (45-117); ALT/SGPT 14 U/L (12-78); ANION GAP 7 MEQ/L (8-16); AST/SGOT 10 U/L (7-37); BILIRUBIN,TOTAL 0.3 MG/DL (0.2-1.0); BLOOD UREA NITROGEN 15 MG/DL (7-18); CALCIUM LEVEL 8.9 MG/DL (8.8-10.2); CARBON DIOXIDE LEVEL 27 MEQ/L (21-32); CHLORIDE LEVEL 112 MEQ/L (98-107); CREATININE FOR GFR 0.71 MG/DL (0.70-1.30); GLOMERULAR FILTRATION RATE > 60.0 (>49); GLUCOSE, FASTING 149 MG/DL (80-110); MAGNESIUM LEVEL 1.8 MG/DL (1.8-2.4); POTASSIUM SERUM 3.8 MEQ/L (3.5-5.1); SODIUM LEVEL 146 MEQ/L (136-145); TOTAL PROTEIN 5.4 GM/DL (6.4-8.2)
[2017-03-27 08:00] VITALS: BP 112/60
[2017-03-27] MEDS: MAGNESIUM OXIDE 400 MG TAB (MAG-OX) PEG SCH (08:57)
[2017-03-27] MEDS: PANTOPRAZOLE 40MG INJ (PROTONIX) (C9113) IV SCH ×2 (08:57→21:45)
[2017-03-27] MEDS: MULTIVITAMINS CHILDREN'S CHEWABLE TABLET PO SCH (08:57)
[2017-03-27] MEDS: FOLIC ACID 1 MG TAB PEG SCH (08:57)
[2017-03-27] MEDS: VITAMIN D 1,000 INTERNATIONAL UNITS TABLET PEG SCH ×2 (08:57→21:44)
[2017-03-27] MEDS: METOPROLOL TART 25 MG TABLET PEG SCH ×2 (08:58→22:09)
[2017-03-27] MEDS: CETIRIZINE (ZyrTEC) 10 MG TAB PEG SCH (08:58)
[2017-03-27] MEDS: ASPIRIN 81 MG CHEW TABLET PEG SCH (08:58)
[2017-03-27] MEDS: ALPRAZolam 0.5 MG TAB PEG SCH ×3 (08:58→21:45)
[2017-03-27] MEDS: ASCORBIC ACID 500 MG TAB PEG SCH ×2 (08:58→21:44)
[2017-03-27] MEDS: buPROPion 75 MG TAB PEG SCH (08:58)
[2017-03-27] MEDS: ALLOPURINOL 100 MG TAB PEG SCH ×2 (08:58→21:44)
[2017-03-27] MEDS: IPRATROPIUM 0.06% NASAL SPRAY 15 ML (ATROVENT) SCH ×3 (08:59→21:00)
[2017-03-27] MEDS: FLUTICASONE PROP 0.05% NASAL SPRAY 16 GM (FLONASE) SCH (08:59)
[2017-03-27] MEDS: FORMOTEROL FUMARATE 20 MCG/2 ML INHALATION SOLUTION (PERFOROMIST) INH SCH ×2 (09:06→19:40)
[2017-03-27 12:00] VITALS: BP 145/69
--- NOTE | 2017-03-27 15:55 | IPNPDOC ---
Text Note Date of Service The patient was seen on 03/27/17. NOTE Subjective: Patient is a 66-year-old male with a PMHx of ALS s/p trach and PEG, Chronic Carter Catheter, Protein calorie malnutrition, hypothyroidism, DM2, GERD , Anxiety, CAD s/p CABG and Stents, COPD, HTN, Kyphosis, DLP and Gout. Presented to the ER with complaints of dark stools for the last 2 days. Was admitted to hospitalist service for suspected upper GI bleeding and received transfusions. Patient has been scheduled for EGD on 03/22. Patient was seen and examined at the bedside. Patient denies any new complaints this morning. He denies any drainage around the PEG tube site. Objective: Vitals (See below) General: Lying in bed, no acute distress, comfortable, AAOx3 HEENT: NC, AT, s/p trach CVS: RRR, +S1S2 Lungs: Fair air entry b/l, + rhonchi Abdomen: Soft, ND, NT, +BSx4, s/p PEG, no drainage around site noted Extremities: - Edema, - Calf tenderness Assessment and plan: s/p Dark stools - likely 2/2 erosion of PEG tube - Hg of 6.1 on admission; improved to 10 after transfusion; has remained stable - s/p 5 units of PRBC - c/w Protonix IV BID, s/p IV drip - s/p EGD and PEG tube replacement with Dr. Breen (Air Traffic Supervisor) PEG tube dysfunction - PEG feeding without issues over last 24 hours - Feeding with positioning sitting upright - c/w Erythromycin for next 24 hours; will change to via PEG tube site s/p Leukocytosis - likely 2/2 bilateral multifocal pneumonia, possibly secondary to aspiration - Physical still reveals course lung sounds bilaterally - WBC normalized, No lactic acidosis - Blood cultures 03/25: negative at 24 hours; Sputum culture 03/26: pending - Chest CT 03/25: Moderate bilateral pleural effusions and moderate to significant perihilar and lower lobe consolidation (L>R), consistent with multifocal pneumonia. Reactive mediastinal LNs up to 1 cm, 2.2 cm area of density identified in the medial right apex may reflect similar small focus of pneumonia, malignancy cannot be excluded - c/w Zosyn and Vancomycin (Day #3); s/p ceftriaxone (4 days) - Will adjust antibiotics based on sputum cultures Elevated troponin - likely 2/2 demand ischemia - Denies any chest pain or palpitations - EKG with sinus tachycardia, evidence of ischemic change - however similar to EKG from 01/2017 - Troponin first set 0.18, 0.51, 0.51 - c/w ASA 81 ALS s/p trach and PEG Chronic Carter Catheter Protein calorie malnutrition Hypothyroidism - c/w levothyroxine 75 DM2 - c/w insulin sliding scale Anxiety - c/w alprazolam, bupropion CAD s/p CABG and Stents - c/w ASA 81 and atorvastatin COPD HTN - Hold furosemide and Terazosin - c/w adjusted dose of metoprolol tartrate with holding parameters Kyphosis DLP - c/w atorvastatin Gout - c/w allopurinol GERD / Gastrointestinal prophylaxis - c/w Protonix DVT prophylaxis - c/w SCDs VS,Fishbone, I+O VS, Fishbone, I+O Laboratory Tests 03/27/17 04:43 Red Blood Count 3.70 L, Mean Corpuscular Volume 88.4, Mean Corpuscular Hemoglobin 27.0, Mean Corpuscular Hemoglobin Concent 30.6 L, Red Cell Distribution Width 17.4 H, Neutrophils (%) (Auto) 73.9 H, Lymphocytes (%) (Auto ) 14.6 L, Monocytes (%) (Auto) 8.1 H, Eosinophils (%) (Auto) 2.4, Basophils (%) (Auto) 0.3, Neutrophils # (Auto) 6.4, Lymphocytes # (Auto) 1.3 L, Monocytes # ( Auto) 0.7, Eosinophils # (Auto) 0.2, Basophils # (Auto) 0.0, Calcium Level 8.9, Aspartate Amino Transf (AST/SGOT) 10, Alanine Aminotransferase (ALT/SGPT) 14, Alkaline Phosphatase 74, Total Bilirubin 0.3, Total Protein 5.4 L, Albumin 1.9 L Vital Signs Date Time Temp Pulse Resp B/P (MAP) Pulse Ox O2 Delivery O2 Flow Rate FiO2 03/27/17 12:00 96.9 89 20 145/69 (94) 97 Trach Collar 4.0 CAROLYN DÍAZ MD Mar 27, 2017 15:54
[2017-03-27 16:00] VITALS: BP 155/79
[2017-03-27] MEDS: ERYTHROMYCIN ETHYLSUCC 200 MG SUSP (ERYPED) 100MLBTL PEG SCH (17:54)
[2017-03-27 20:00] VITALS: BP 172/74
[2017-03-27] MEDS ORDERED: VANCOMYCIN HCL 1,000 MG, VIAL MATE ADAPTER 1 EACH in D5W 250 ML IV SCH (21:00)
[2017-03-27] MEDS: BACLOFEN 10 MG TAB PEG SCH (21:43)
[2017-03-27] MEDS: ATORVASTATIN 20 MG TAB PEG SCH (21:44)
[2017-03-27 23:59] VITALS: BP 128/66
[2017-03-28] MEDS: PIPERACILLIN/TAZOBACTAM SOD 3.375 GM in APPROPRIATE DILUENT 1 EA IV SCH ×3 (00:04→17:00)
[2017-03-28] MEDS: HumaLOG INSULIN (NovoLOG) PER UNIT SC SCH ×5 (00:05→23:44)
[2017-03-28 04:00] VITALS: BP 146/69
[2017-03-28] MEDS: ALBUTEROL SULFATE 2.5 MG/0.5 ML INH NEB SOLN INH PRN ×2 (04:19→11:48)
[2017-03-28 05:34] LABS: BASO % 0.5 % (0.0-1.0); EOS # 0.2 10^3/uL (0.0-0.50); EOS % 2.6 % (0.0-3.0); IMMATURE GRANULOCYTE % 0.9 % (0-0); LYMPH # 1.2 10^3/uL (1.5-4.5); MEAN CORPUSCULAR HEMOGLOBIN 27.2 pg (27.0-33.0); MEAN CORPUSCULAR HGB CONC 30.1 g/dl (32.0-36.5); MEAN CORPUSCULAR VOLUME 90.3 fl (80.0-96.0); MONO # 0.6 10^3/uL (0.0-0.8); MONO % 7.2 % (0.0-5.0); NEUTROPHILS # 6.4 10^3/uL (1.8-7.7); NEUTROPHILS % 74.8 % (36.0-66.0); PLATELET COUNT, AUTOMATED 217 10^3/uL (150-450); RED CELL DISTRIBUTION WIDTH 17.4 % (11.5-14.5); WHITE BLOOD COUNT 8.5 10^3/uL (4.0-10.0)
[2017-03-28] MEDS: LEVOTHYROXINE 75MCG TABLET (0.075MG) PEG SCH (05:46)
[2017-03-28 05:57] LABS: ALBUMIN 2.1 GM/DL (3.2-5.2); ALBUMIN/GLOBULIN RATIO 0.55 (1.00-1.93); ALKALINE PHOSPHATASE 93 U/L (45-117); ALT/SGPT 12 U/L (12-78); ANION GAP 7 MEQ/L (8-16); AST/SGOT 10 U/L (7-37); BILIRUBIN,TOTAL 0.4 MG/DL (0.2-1.0); BLOOD UREA NITROGEN 13 MG/DL (7-18); CALCIUM LEVEL 9.3 MG/DL (8.8-10.2); CARBON DIOXIDE LEVEL 29 MEQ/L (21-32); CHLORIDE LEVEL 110 MEQ/L (98-107); CREATININE FOR GFR 0.64 MG/DL (0.70-1.30); GLOMERULAR FILTRATION RATE > 60.0 (>49); GLUCOSE, FASTING 157 MG/DL (80-110); MAGNESIUM LEVEL 1.5 MG/DL (1.8-2.4); POTASSIUM SERUM 3.7 MEQ/L (3.5-5.1); SODIUM LEVEL 146 MEQ/L (136-145); TOTAL PROTEIN 5.9 GM/DL (6.4-8.2)
[2017-03-28 08:00] VITALS: BP 173/84
[2017-03-28] MEDS: FORMOTEROL FUMARATE 20 MCG/2 ML INHALATION SOLUTION (PERFOROMIST) INH SCH ×2 (08:10→20:36)
[2017-03-28] MEDS: ERYTHROMYCIN ETHYLSUCC 200 MG SUSP (ERYPED) 100MLBTL PEG SCH (08:34)
[2017-03-28] MEDS: MAG SULF 1GM/100ML (MAG RUN) 1 GM in APPROPRIATE DILUENT 1 EA IV SCH ×2 (08:34→09:50)
[2017-03-28] MEDS: ASPIRIN 81 MG CHEW TABLET PEG SCH (08:36)
[2017-03-28] MEDS: VITAMIN D 1,000 INTERNATIONAL UNITS TABLET PEG SCH ×2 (08:37→21:22)
[2017-03-28] MEDS: METOPROLOL TART 25 MG TABLET PEG SCH ×2 (08:37→21:00)
[2017-03-28] MEDS: buPROPion 75 MG TAB PEG SCH (08:37)
[2017-03-28] MEDS: ASCORBIC ACID 500 MG TAB PEG SCH ×2 (08:37→21:23)
[2017-03-28] MEDS: FOLIC ACID 1 MG TAB PEG SCH (08:37)
[2017-03-28] MEDS: MAGNESIUM OXIDE 400 MG TAB (MAG-OX) PEG SCH (08:37)
[2017-03-28] MEDS: CETIRIZINE (ZyrTEC) 10 MG TAB PEG SCH (08:38)
[2017-03-28] MEDS: FLUTICASONE PROP 0.05% NASAL SPRAY 16 GM (FLONASE) SCH (08:38)
[2017-03-28] MEDS: ALLOPURINOL 100 MG TAB PEG SCH ×2 (08:38→21:23)
[2017-03-28] MEDS: ALPRAZolam 0.5 MG TAB PEG SCH ×3 (08:38→21:22)
[2017-03-28] MEDS: PANTOPRAZOLE 40MG INJ (PROTONIX) (C9113) IV SCH (08:38)
[2017-03-28] MEDS: MULTIVITAMINS CHILDREN'S CHEWABLE TABLET PO SCH (08:38)
[2017-03-28] MEDS: IPRATROPIUM 0.06% NASAL SPRAY 15 ML (ATROVENT) SCH ×4 (09:00→21:00)
[2017-03-28 12:00] VITALS: BP 111/79
[2017-03-28] MEDS: ACETAMINOPHEN 650 MG SUPP PR PRN (15:14)
[2017-03-28 16:00] VITALS: BP 122/69
--- NOTE | 2017-03-28 16:09 | IPNPDOC ---
Text Note Date of Service The patient was seen on 03/28/17. NOTE Subjective: Patient is a 66-year-old male with a PMHx of ALS s/p trach and PEG, Chronic Carter Catheter, Protein calorie malnutrition, hypothyroidism, DM2, GERD , Anxiety, CAD s/p CABG and Stents, COPD, HTN, Kyphosis, DLP and Gout. Presented to the ER with complaints of dark stools for the last 2 days. Was admitted to hospitalist service for suspected upper GI bleeding and received transfusions. Patient has been scheduled for EGD on 03/22. Patient was seen and examined at the bedside. Patient is not in any acute distress, no leaking via PEG tube noted. Has no new complaints. Objective: Vitals (See below) General: Lying in bed, no acute distress, comfortable, AAOx3 HEENT: NC, AT, s/p trach CVS: RRR, +S1S2 Lungs: Fair air entry b/l, + rhonchi Abdomen: Soft, ND, NT, +BSx4, s/p PEG, no drainage around site noted Extremities: - Edema, - Calf tenderness Assessment and plan: s/p Dark stools - likely 2/2 erosion of PEG tube - Hg of 6.1 on admission; improved to 10 after transfusion; has remained stable - s/p 5 units of PRBC - Will change Protonix to PO; s/p Protonix IV and drip - s/p EGD and PEG tube replacement with Dr. Breen (Part Maker) PEG tube dysfunction - PEG feeding continues without any events - Feeding with positioning sitting upright - Will stop Erythromycin now; s/p via PEG and IV s/p Leukocytosis - likely 2/2 bilateral multifocal pneumonia, possibly secondary to aspiration - Physical still reveals course lung sounds bilaterally - WBC normalized, No lactic acidosis - Blood cultures 03/25: negative at 24 hours; Sputum culture 03/26: Pseudomonas - Chest CT 03/25: Moderate bilateral pleural effusions and moderate to significant perihilar and lower lobe consolidation (L>R), consistent with multifocal pneumonia. Reactive mediastinal LNs up to 1 cm, 2.2 cm area of density identified in the medial right apex may reflect similar small focus of pneumonia, malignancy cannot be excluded - Will start Levofloxacin; s/p Zosyn and Vancomycin (Antibiotic ay #4); s/p ceftriaxone (4 days) Elevated troponin - likely 2/2 demand ischemia - Denies any chest pain or palpitations - EKG with sinus tachycardia, evidence of ischemic change - however similar to EKG from 01/2017 - Troponin first set 0.18, 0.51, 0.51 - c/w ASA 81 ALS s/p trach and PEG Chronic Carter Catheter Protein calorie malnutrition Hypothyroidism - c/w levothyroxine 75 DM2 - c/w insulin sliding scale Anxiety - c/w alprazolam, bupropion CAD s/p CABG and Stents - c/w ASA 81 and atorvastatin COPD HTN - Hold furosemide and Terazosin - c/w adjusted dose of metoprolol tartrate with holding parameters Kyphosis DLP - c/w atorvastatin Gout - c/w allopurinol GERD / Gastrointestinal prophylaxis - c/w Protonix DVT prophylaxis - c/w SCDs VS,Fishbone, I+O VS, Fishbone, I+O Laboratory Tests 03/28/17 04:50 Red Blood Count 4.04 L, Mean Corpuscular Volume 90.3, Mean Corpuscular Hemoglobin 27.2, Mean Corpuscular Hemoglobin Concent 30.1 L, Red Cell Distribution Width 17.4 H, Neutrophils (%) (Auto) 74.8 H, Lymphocytes (%) (Auto ) 14.0 L, Monocytes (%) (Auto) 7.2 H, Eosinophils (%) (Auto) 2.6, Basophils (%) (Auto) 0.5, Neutrophils # (Auto) 6.4, Lymphocytes # (Auto) 1.2 L, Monocytes # ( Auto) 0.6, Eosinophils # (Auto) 0.2, Basophils # (Auto) 0.0, Calcium Level 9.3, Aspartate Amino Transf (AST/SGOT) 10, Alanine Aminotransferase (ALT/SGPT) 12, Alkaline Phosphatase 93, Total Bilirubin 0.4, Total Protein 5.9 L, Albumin 2.1 L Vital Signs Date Time Temp Pulse Resp B/P (MAP) Pulse Ox O2 Delivery O2 Flow Rate FiO2 03/28/17 12:00 97.2 96 17 111/79 (90) 98 03/28/17 07:30 Trach Collar 03/28/17 04:12 4.0 I&O- Last 24 Hours up to 6 AM 03/29/17 06:00 Intake Total 200 ml Output Total 650 ml Balance -450 ml CAROLYN DÍAZ MD Mar 28, 2017 16:09
[2017-03-28 20:00] VITALS: BP 104/56
[2017-03-28] MEDS: ATORVASTATIN 20 MG TAB PEG SCH (21:22)
[2017-03-28] MEDS: BACLOFEN 10 MG TAB PEG SCH (21:22)
[2017-03-28] MEDS: PANTOPRAZOLE 40MG TAB (PROTONIX) PO SCH (21:22)
[2017-03-28 23:59] VITALS: BP 102/59
[2017-03-29 04:00] VITALS: BP 158/78
[2017-03-29] MEDS: ALBUTEROL SULFATE 2.5 MG/0.5 ML INH NEB SOLN INH PRN ×3 (04:37→16:34)
[2017-03-29] MEDS: LEVOTHYROXINE 75MCG TABLET (0.075MG) PEG SCH (06:06)
[2017-03-29] MEDS: LevoFLOXacin 750 MG TABLET PO SCH (06:06)
[2017-03-29] MEDS: HumaLOG INSULIN (NovoLOG) PER UNIT SC SCH ×3 (06:07→17:59)
[2017-03-29 07:47] VITALS: BP 129/62
[2017-03-29] MEDS: FORMOTEROL FUMARATE 20 MCG/2 ML INHALATION SOLUTION (PERFOROMIST) INH SCH ×2 (08:06→20:55)
[2017-03-29] MEDS: MULTIVITAMINS CHILDREN'S CHEWABLE TABLET PO SCH (09:04)
[2017-03-29] MEDS: ALPRAZolam 0.5 MG TAB PEG SCH ×3 (09:04→22:19)
[2017-03-29] MEDS: ALLOPURINOL 100 MG TAB PEG SCH ×2 (09:04→22:19)
[2017-03-29] MEDS: ASPIRIN 81 MG CHEW TABLET PEG SCH (09:04)
[2017-03-29] MEDS: VITAMIN D 1,000 INTERNATIONAL UNITS TABLET PEG SCH ×2 (09:05→22:20)
[2017-03-29] MEDS: ASCORBIC ACID 500 MG TAB PEG SCH ×2 (09:05→22:20)
[2017-03-29] MEDS: MAGNESIUM OXIDE 400 MG TAB (MAG-OX) PEG SCH (09:05)
[2017-03-29] MEDS: PANTOPRAZOLE 40MG TAB (PROTONIX) PO SCH ×2 (09:05→22:19)
[2017-03-29] MEDS: buPROPion 75 MG TAB PEG SCH (09:05)
[2017-03-29] MEDS: CETIRIZINE (ZyrTEC) 10 MG TAB PEG SCH (09:05)
[2017-03-29] MEDS: METOPROLOL TART 25 MG TABLET PEG SCH ×2 (09:06→21:00)
[2017-03-29] MEDS: FOLIC ACID 1 MG TAB PEG SCH (09:06)
[2017-03-29] MEDS: FLUTICASONE PROP 0.05% NASAL SPRAY 16 GM (FLONASE) SCH (09:07)
[2017-03-29] MEDS: IPRATROPIUM 0.06% NASAL SPRAY 15 ML (ATROVENT) SCH ×3 (09:07→21:00)
[2017-03-29] MEDS ORDERED: MAG SULF 1GM/100ML (MAG RUN) 1 GM in APPROPRIATE DILUENT 1 EA IV ONE (11:00)
[2017-03-29 12:52] LABS: MEAN CORPUSCULAR HEMOGLOBIN 27.5 pg (27.0-33.0); MEAN CORPUSCULAR HGB CONC 30.5 g/dl (32.0-36.5); MEAN CORPUSCULAR VOLUME 90.3 fl (80.0-96.0); PLATELET COUNT, AUTOMATED 204 10^3/uL (150-450); RED CELL DISTRIBUTION WIDTH 17.3 % (11.5-14.5); WHITE BLOOD COUNT 9.5 10^3/uL (4.0-10.0)
[2017-03-29 13:03] LABS: ANION GAP 10 MEQ/L (8-16); BLOOD UREA NITROGEN 14 MG/DL (7-18); CALCIUM LEVEL 9.4 MG/DL (8.8-10.2); CARBON DIOXIDE LEVEL 29 MEQ/L (21-32); CHLORIDE LEVEL 105 MEQ/L (98-107); CREATININE FOR GFR 0.56 MG/DL (0.70-1.30); GLOMERULAR FILTRATION RATE > 60.0 (>49); GLUCOSE, FASTING 156 MG/DL (80-110); POTASSIUM SERUM 3.9 MEQ/L (3.5-5.1); SODIUM LEVEL 144 MEQ/L (136-145)
[2017-03-29 16:00] VITALS: BP 166/72
--- NOTE | 2017-03-29 19:44 | IPN ---
DATE: 03/29/2017 SUBJECTIVE: The patient is able to nod to yes or no questions and write written responses on a pad. He denies any complaints and denies pain, bleeding, chest pain, shortness of breath, fevers, chills, or cough. OBJECTIVE: VITAL SIGNS: Temperature 96.7, pulse 92, respiratory rate 17, blood pressure 129/62, Oxygen saturation 97% on 4 liters trach collar ventilator. GENERAL: He is a frail elderly man laying flat. He does not appear to be in any acute distress. He appears comfortable. He is accompanied by his aide. HEENT: Trach is in place. He has dry mucosus membranes. No elevation in central venous pressure. CARDIOVASCULAR EXAM: S1, S2 regular. RESPIRATORY EXAM: Clear. ABDOMINAL EXAM: His percutaneous endoscopic gastrostomy (PEG) is in place. Dressings are clean, dry and intact. EXTREMITIES: No clubbing, cyanosis or edema. LABORATORY STUDIES: WBC 9.5, hemoglobin 9.9, platelet count 204. Chemistry panel: Sodium 144, potassium 3.9, chloride 105, bicarbonate 29, BUN 14, creatinine 0.5, CRP have been trending downward. MICROBIOLOGY: Sputum from 03/26/2017 was positive for Pseudomonas and Serratia both sensitive to levofloxacin. Blood cultures were negative after 72 hours. Urine culture is negative. During his stay he received 5 units of packed red blood cells. No new imaging. ASSESSMENT AND PLAN: This is a 66-year-old man with amyotrophic lateral sclerosis status-post percutaneous endoscopic gastrostomy and trach, came in with gastrointestinal (GI) bleed related to percutaneous endoscopic gastrostomy tube. PROBLEMS: 1. Dark stools, likely secondary to erosion from his percutaneous endoscopic gastrostomy tube. Gastroenterology's help has been greatly appreciated. He is status-post 5 units of packed red blood cells. He did have acute blood loss, symptomatic anemia. He has improved. His hemoglobin and hematocrit is stable at this time. His percutaneous endoscopic gastrostomy tube has been changed. He is tolerating feeds through it. His Protonix has been switched to by mouth. His clinical symptoms appear to be resolving at the time. He has been trying to do feeding with positioning sitting upright. 2. Leukocytosis, resolved, likely reactive. There was also concern for aspiration, concern for pneumonia. His sputum was positive for Pseudomonas. He has been started on levofloxacin. He was on vancomycin and Zosyn prior to this. Today is effectively day #5. He should complete a 7 day course, today being day #5. I suspect he could likely be discharged to home as early as tomorrow. 3. Elevated troponin, likely secondary to demand ischemia. Consider outpatient coronary evaluation and stress testing as per his primary care provider (PCP). Continue with aspirin. He is on a beta-gautam. He is also on a statin. 4. Amyotrophic lateral sclerosis status-post percutaneous endoscopic gastrostomy and trach. He does have a chronic Carter. He is on Protonix twice a day, Tylenol suppositories. He is on Xanax three times a day, baclofen at night. 5. Anxiety. Continue with hydroxyzine 50 every 6, Xanax three times a day, bupropion 75 daily. 6. Seasonal allergies. Continue with Zyrtec 10 mg daily. 7. Folic acid deficiency. Continue with supplementation as well as multivitamin. 8. Hypothyroidism. Continue with Synthroid. 9. Gout. Continue with allopurinol. 10. Vitamin D deficiency. Continue supplementation. 11. Chronic obstructive pulmonary disease. Continue with albuterol, Perforomist and Flonase. He is at his baseline respiratory status. 12. Hypertension. His Lasix and terazosin is currently on hold. He has had his metoprolol dose adjusted. Consider restarting Lasix and terazosin upon discharge. 13. Kyphosis, likely contributing factor to restrictive. lung disease. 14. Dyslipidemia. He is on a statin. 15. Deep venous thrombosis prophylaxis. Sequentials and thromboembolic deterrents. DISPOSITION: Likely for discharge home tomorrow to complete his 7 day course of antibiotics.
[2017-03-29 20:28] VITALS: BP 107/57
[2017-03-29 21:00] VITALS: BP 107/57
[2017-03-29] MEDS: ATORVASTATIN 20 MG TAB PEG SCH (22:19)
[2017-03-29] MEDS: BACLOFEN 10 MG TAB PEG SCH (22:19)
[2017-03-30 00:36] VITALS: BP 134/63
[2017-03-30] MEDS: HumaLOG INSULIN (NovoLOG) PER UNIT SC SCH ×2 (00:38→05:45)
[2017-03-30] MEDS: ALBUTEROL SULFATE 2.5 MG/0.5 ML INH NEB SOLN INH PRN ×2 (00:59→11:59)
[2017-03-30 05:04] VITALS: BP 115/55
[2017-03-30] MEDS: LEVOTHYROXINE 75MCG TABLET (0.075MG) PEG SCH (05:45)
[2017-03-30] MEDS: LevoFLOXacin 750 MG TABLET PO SCH (05:46)
[2017-03-30 06:57] LABS: ANION GAP 5 MEQ/L (8-16); BLOOD UREA NITROGEN 14 MG/DL (7-18); CALCIUM LEVEL 9.1 MG/DL (8.8-10.2); CARBON DIOXIDE LEVEL 34 MEQ/L (21-32); CHLORIDE LEVEL 106 MEQ/L (98-107); CREATININE FOR GFR 0.59 MG/DL (0.70-1.30); GLOMERULAR FILTRATION RATE > 60.0 (>49); GLUCOSE, FASTING 131 MG/DL (80-110); POTASSIUM SERUM 3.9 MEQ/L (3.5-5.1); SODIUM LEVEL 145 MEQ/L (136-145)
[2017-03-30 07:22] LABS: MEAN CORPUSCULAR HGB CONC 31.1 g/dl (32.0-36.5); MEAN CORPUSCULAR VOLUME 89.9 fl (80.0-96.0); PLATELET COUNT, AUTOMATED 204 10^3/uL (150-450); RED CELL DISTRIBUTION WIDTH 17.3 % (11.5-14.5); WHITE BLOOD COUNT 8.1 10^3/uL (4.0-10.0)
[2017-03-30] MEDS: FORMOTEROL FUMARATE 20 MCG/2 ML INHALATION SOLUTION (PERFOROMIST) INH SCH (07:33)
[2017-03-30 08:00] VITALS: BP 132/64
[2017-03-30] MEDS: METOPROLOL TART 25 MG TABLET PEG SCH (08:28)
[2017-03-30] MEDS: ASPIRIN 81 MG CHEW TABLET PEG SCH (08:28)
[2017-03-30] MEDS: FOLIC ACID 1 MG TAB PEG SCH (08:28)
[2017-03-30] MEDS: ASCORBIC ACID 500 MG TAB PEG SCH (08:29)
[2017-03-30] MEDS: MAGNESIUM OXIDE 400 MG TAB (MAG-OX) PEG SCH (08:29)
[2017-03-30] MEDS: buPROPion 75 MG TAB PEG SCH (08:29)
[2017-03-30] MEDS: CETIRIZINE (ZyrTEC) 10 MG TAB PEG SCH (08:29)
[2017-03-30] MEDS: ALPRAZolam 0.5 MG TAB PEG SCH (08:29)
[2017-03-30] MEDS: MULTIVITAMINS CHILDREN'S CHEWABLE TABLET PO SCH (08:29)
[2017-03-30] MEDS: VITAMIN D 1,000 INTERNATIONAL UNITS TABLET PEG SCH (08:29)
[2017-03-30] MEDS: ALLOPURINOL 100 MG TAB PEG SCH (08:29)
[2017-03-30] MEDS: IPRATROPIUM 0.06% NASAL SPRAY 15 ML (ATROVENT) SCH (08:30)
[2017-03-30] MEDS: PANTOPRAZOLE 40MG TAB (PROTONIX) PO SCH (08:30)
[2017-03-30] MEDS: FLUTICASONE PROP 0.05% NASAL SPRAY 16 GM (FLONASE) SCH (08:30)
[2017-03-30] MEDS ORDERED: METO1TAB87 PEG (10:36)
[2017-03-30] MEDS ORDERED: LEVA750T7 PO (10:36)
[2017-03-30] MEDS ORDERED: PANT40TA2 PO (10:44)
--- NOTE | 2017-03-30 16:15 | DSES ---
DATE OF ADMISSION: 03/21/2017 DATE OF DISCHARGE: 03/30/2017 CONSULTATIONS: Dr. Breen, gastroenterology. DISCHARGE DIAGNOSIS: Upper gastrointestinal (GI) bleed. SECONDARY DIAGNOSES: 1. Leukocytosis. 2. Elevated troponin. 3. Amyotrophic lateral sclerosis (ALS). 4. Anxiety. 5. Seasonal allergies. 6. Folic acid deficiency. 7. Hypothyroidism. 8. Gout. 9. Vitamin D deficiency. 10. Chronic obstructive pulmonary disease (COPD). 11. Hypertension. 12. Kyphosis. 13. Dyslipidemia. 14. Pseudomonas pneumonia. PROCEDURES: Upper gastrointestinal (GI) endoscopy 03/22/2017 that revealed eroding gastrostomy tube with hemorrhagic appearance and ulceration and a percutaneous endoscopic gastrostomy (PEG) tube was placed. HOSPITAL COURSE: The patient is a 66-year-old man with amyotrophic lateral sclerosis (ALS) who has a chronic tracheostomy and percutaneous endoscopic gastrostomy (PEG) who presented on 03/21/2017 with dark stools for two days, which he had never had before in the past. He had had bleeding around his PEG site for two days prior to admission as well. The PEG tube was placed in April 2016 and not been replaced since that point. It had been tightened by Dr. Wilkins on a previous admission. The patient was admitted to the medical/surgical service. He was seen by Dr. Breen who did evaluate the PEG and actually was able to remove the eroding PEG tube and replace a new one. The patient tolerated the procedure quite well and did improve quite well postprocedurally. SUBJECTIVE: The patient tells me that he is feeling fine today. He has no complaints. No pain. No shortness of breath. No dark stools. No lightheadedness, dizziness, fevers or chills. OBJECTIVE: VITAL SIGNS: Temperature 97.3, pulse 87, respiratory rate 17, blood pressure 132/64, oxygen saturation 99% on ventilator tracheostomy collar. GENERAL: He is a frail, elderly, man laying in bed, appears older than his stated age. He does not appear to be in any acute distress. He communicated by nodding yes or no and writing on a pad. HEENT: He has a tracheostomy which is in place. He has dry mucous membranes. No elevation in central venous pressure (CVP). CARDIOVASCULAR: S1, S2, regular. RESPIRATORY: He has diffuse rhonchi which is his baseline. ABDOMEN: A percutaneous endoscopic gastrostomy (PEG) tube is in place. Dressing is clean, dry and intact without any surrounding erythema or tenderness. Bowel sounds are present. The abdomen is soft. EXTREMITIES: No clubbing, cyanosis, or edema. LABORATORY STUDIES: WBC 8.1, hemoglobin 8.9, hematocrit 28.6, platelet count 204. Chemistry panel: Sodium 145, potassium 3.9, chloride 106, bicarbonate 24, BUN 14, creatinine 0.5, CRP continues to trend downward at 1.6 today. MICROBIOLOGY: Sputum was positive for Pseudomonas and Serratia, both sensitive to Levaquin. Blood cultures were negative after five days. Urine culture was negative. IMAGING STUDIES: The patient did have a CT scan of his chest on 03/25/2017 that revealed moderate bilateral pleural effusions, left greater than right, consistent with multifocal pneumonia, and a 2.2 cm area of density in the right apex which may reflex a small focus of pneumonia, pathology including malignancy could not be excluded. ASSESSMENT AND PLAN: This is a 66-year-old man with amyotrophic lateral sclerosis (ALS) status post tracheostomy and percutaneous endoscopic gastrostomy (PEG) who came with upper gastrointestinal (GI) bleed related to erosive PEG tube. PROBLEMS: 1. Upper gastrointestinal (GI) bleed related to erosive percutaneous endoscopic gastrostomy (PEG) tube. The PEG tube was exchanged and with the new PEG tube his bleeding did spontaneously resolve. His acute blood loss anemia resolved. He did receive five units of packed red blood cells (PRBCs) during his stay here. At this time, he is hemodynamically stable. His hemoglobin and hematocrit is stable. He is tolerating his tube feeds once again. 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 2. Pneumonia. Concern for Serratia versus Pseudomonas as the sputum culture was positive. He did complete a seven-day course of levofloxacin. His symptoms are improved at this time. He does not appear to be septic whatsoever. He is not tachycardic or febrile. 3. Elevated troponin, likely related to demand ischemia in the setting of acute blood loss anemia and GI bleeding. Could consider outpatient coronary evaluation with stress testing through his primary care provider and cardiology referral. He is on a beta gautam and a statin as well as an aspirin. 4. Amyotrophic lateral sclerosis (ALS), status post tracheostomy and PEG. He has a chronic Carter. He is on Protonix twice a day, Tylenol suppository, Xanax three times a day, and baclofen at night. 5. Anxiety. Continue with hydroxyzine, Xanax, and bupropion. 6. Seasonal allergies. Continue with Zyrtec. 7. Folic acid deficiency. Continue with supplementation as well as multivitamin. 8. Hypothyroidism. Continue with Synthroid. 9. Gout. Continue with allopurinol. 10. Vitamin D deficiency. Continue supplementation. 11. Chronic obstructive pulmonary disease (COPD). He is to continue albuterol, metformin, and Flonase. He is at his baseline respiratory status and ventilator dependent. 12. Hypertension. He is on Lasix, terazosin. He has had metoprolol adjusted and we will restart his Lasix and terazosin upon discharge. 13. Kyphosis, contributing factor to restrictive lung disease. 14. Dyslipidemia. He is on a statin. 15. Deep vein thrombosis (DVT) prophylaxis. He is on sequentials and thromboembolic-deterrent stockings (TEDS). DISPOSITION: The patient is being discharged home to the care of his family and aides. He has significant support at home. He is at his baseline. He is to followup with his primary care provider (PCP) within seven days and gastroenterology within two weeks. His activity and diet are as prior to admission. He is to return to the emergency room (ER) if his symptoms worsen. He is to be elevated greater than 45 degrees while feeding. MEDICATIONS AT THE TIME OF DISCHARGE: - levofloxacin 750 mg daily per tube for three days - metoprolol tartrate 6.25 mg via percutaneous endoscopic gastrostomy (PEG) tube twice a day - Protonix 40 mg twice a day - acetaminophen 650 per tube every six as needed for pain or fever - albuterol 2.5 mg inhaled every four hours as needed for shortness of breath - allopurinol 100 mg per tube twice a day - Xanax 0.5 mg per tube three times a day - ascorbic acid 500 mg per tube twice a day - aspirin 81 mg per tube daily - atorvastatin 20 mg per tube at bedtime - bacitracin ointment topically as needed for discomfort - baclofen 10 mg per tube at bedtime - bupropion 75 mg per tube daily - Zyrtec 10 mg per tube daily - vitamin D 1000 units per tube twice a day - Diabetisource before meals - diclofenac topical four times a day on shoulder and back - Flonase 50 mcg two sprays inhaled nasally daily - folic acid per tube daily - Perforomist 20 mcg inhaled twice a day - Lasix 20 mg per tube twice a day - Glucerna 60 mL per tube three times a day - hydroxyzine 50 mg per tube every six hours as needed for anxiety - ipratropium bromide two sprays nasally three times a day - lactobacillus one capsule per tube twice a day - Synthroid 75 mcg per tube daily - magnesium oxide 40 mg per tube daily - metformin 1 gram per tube twice a day - methenamine mandelate 1 gram per tube twice a day - miconazole powder topically as needed five times a day for rash - multivitamin one tablet per tube daily - omega-3 one capsule per tube twice a day - Zofran 4 mg per tube every six hours as needed for nausea - riluzole 50 mg per tube every 12 hours - senna 15 mL per tube daily as needed for constipation - terazosin 5 mg per tube daily - Urea topical lotion twice a day as needed for dry skin Greater than 30 minutes was spent organizing disposition.
== END 2017-03-30 12:53 | disposition home or self-care (01) | DRG 393 ==
LOC: M ED 10:29 → M ED INP 14:52 → M PCU 18:07
PROVIDERS: ADMIT Internal Medicine; ATTEND Internal Medicine
PROC: 30233N1 Transfusion of Nonautologous Red Blood Cells into Peripheral Vein, Percutaneous Approach (ICD-10-PCS; 2017-03-21)
PROC: 0DP68UZ Removal of Feeding Device from Stomach, Via Natural or Artificial Opening Endoscopic (ICD-10-PCS; 2017-03-22)
PROC: 0DH68UZ Insertion of Feeding Device into Stomach, Via Natural or Artificial Opening Endoscopic (ICD-10-PCS; principal; 2017-03-22 08:00)
DX: K94.23 Gastrostomy malfunction (principal); J18.9 Pneumonia, unspecified organism; K28.4 Chronic or unspecified gastrojejunal ulcer with hemorrhage; G12.21 Amyotrophic lateral sclerosis; E46 Unspecified protein-calorie malnutrition; D62 Acute posthemorrhagic anemia; J30.2 Other seasonal allergic rhinitis; E03.9 Hypothyroidism, unspecified; E11.9 Type 2 diabetes mellitus without complications; M10.9 Gout, unspecified; K21.9 Gastro-esophageal reflux disease without esophagitis; I25.10 Atherosclerotic heart disease of native coronary artery without angina pectoris; J44.9 Chronic obstructive pulmonary disease, unspecified; I10 Essential (primary) hypertension; E78.5 Hyperlipidemia, unspecified; Z96.0 Presence of urogenital implants; Z79.82 Long term (current) use of aspirin; Z79.84 Long term (current) use of oral hypoglycemic drugs; Z88.8 Allergy status to other drugs, medicaments and biological substances; Z95.5 Presence of coronary angioplasty implant and graft; Z87.891 Personal history of nicotine dependence

== ENCOUNTER 2017-04-12 02:05 | Emergency (ER) | payer OTHER, MEDICARE ==
[~2017-04-12] VITALS: Ht 172.7 cm; Wt 62.7 kg
[~2017-04-12 02:05] MED LIST changes: +ACID1CAP5 PEG; +ALBU83IN INH; +ALL10TAB27 PEG; +BACI500O8 TOP; +FURO20TA2 PEG; +LEVA750T7 PO; +MAGN400T5 PEG; +MICOPOW31 TOP; +VITA-112 PEG; +XANA0.5T PEG; +[UNRECOGNIZED DRUG - OTHER] PEG
[2017-04-12] MEDS ORDERED: TWOCLIQ PO (02:29)
[2017-04-12] MEDS ORDERED: [UNRECOGNIZED DRUG - CODE] PO (02:29)
[2017-04-12] MEDS ORDERED: DULO30CA PO (02:29)
[2017-04-12 03:59] VITALS: BP 165/82
== END 2017-04-12 04:02 | disposition home or self-care (01) ==
LOC: M ED 02:05
DX: K94.23 Gastrostomy malfunction (principal); G12.21 Amyotrophic lateral sclerosis; Z79.899 Other long term (current) drug therapy; Z79.82 Long term (current) use of aspirin; Z88.8 Allergy status to other drugs, medicaments and biological substances

== ENCOUNTER 2017-05-01 04:16 | Emergency (ER) | payer OTHER, MEDICARE | END 2017-05-01 08:30 | disposition home or self-care (01) | LOC: M ED 04:16 | DX: J95.09 Other tracheostomy complication (principal); G12.21 Amyotrophic lateral sclerosis; Z79.899 Other long term (current) drug therapy; Z79.82 Long term (current) use of aspirin; Z79.890 Hormone replacement therapy; Z79.51 Long term (current) use of inhaled steroids; Z88.8 Allergy status to other drugs, medicaments and biological substances | CPT/HCPCS: 99291 ==

== ENCOUNTER 2017-05-14 19:28 | Inpatient (IN) | payer OTHER, MEDICARE ==
[2017-05-14 21:28] LABS: BASO # 0.1 10^3/uL (0.0-0.2); BASO % 0.4 % (0.0-1.0); EOS # 0.2 10^3/uL (0.0-0.50); EOS % 0.9 % (0.0-3.0); HEMATOCRIT 31.2 % (42.0-52.0); HEMOGLOBIN 9.1 g/dl (14.0-18.0); IMMATURE GRANULOCYTE # 0.6 10^3/uL (0-0); IMMATURE GRANULOCYTE % 3.6 % (0-0); LYMPH # 0.8 10^3/uL (1.5-4.5); LYMPH % 4.9 % (24.0-44.0); MEAN CORPUSCULAR HEMOGLOBIN 27.3 pg (27.0-33.0); MEAN CORPUSCULAR HGB CONC 29.2 g/dl (32.0-36.5); MEAN CORPUSCULAR VOLUME 93.7 fl (80.0-96.0); MONO # 0.5 10^3/uL (0.0-0.8); MONO % 3.2 % (0.0-5.0); NEUTROPHILS # 14.3 10^3/uL (1.8-7.7); PLATELET COUNT, AUTOMATED 236 10^3/uL (150-450); RED BLOOD COUNT 3.33 10^6/uL (4.30-6.10); RED CELL DISTRIBUTION WIDTH 15.8 % (11.5-14.5); WHITE BLOOD COUNT 16.4 10^3/uL (4.0-10.0)
[2017-05-14 21:37] LABS: INR 1.04; PROTHROMBIN TIME 13.7 SECONDS (12.4-14.5)
[2017-05-14 21:42] LABS: PARTIAL THROMBOPLASTIN TIME 31.1 SECONDS (26.8-37.9)
[2017-05-14 21:43] LABS: ANION GAP 3 MEQ/L (8-16); BLOOD UREA NITROGEN 74 MG/DL (7-18); CALCIUM LEVEL 9.1 MG/DL (8.8-10.2); CARBON DIOXIDE LEVEL 40 MEQ/L (21-32); CHLORIDE LEVEL 100 MEQ/L (98-107); CREATININE FOR GFR 0.95 MG/DL (0.70-1.30); GLOMERULAR FILTRATION RATE > 60.0 (>49); GLUCOSE, FASTING 256 MG/DL (80-110); SODIUM LEVEL 143 MEQ/L (136-145)
[2017-05-14 21:54] LABS: POTASSIUM SERUM 5.4 MEQ/L (3.5-5.1)
[2017-05-14] MEDS: DILUENT IV (22:00)
[2017-05-14] MEDS: CEFUROXIME SODIUM IV (22:00)
[2017-05-14] MEDS: AZITHROMYCIN INJ 500 MG, VIAL MATE ADAPTER 1 EACH in D5W 250 ML IV (22:18)
[2017-05-14] MEDS ORDERED: ISOVUE-370 76% 100ML VIAL (Q9967) As Ordered (22:28)
[2017-05-14] MEDS: NS 500 ML IV (23:08)
[2017-05-15] MEDS ORDERED: POTASSIUM CHLORIDE 10 MEQ SR TABLET PO (02:00)
[2017-05-15] MEDS ORDERED: SENNA SYRUP 15 ML UDC PEG (02:15)
[2017-05-15] MEDS ORDERED: ACETAMINOPHEN 325 MG TAB PEG (02:15)
[2017-05-15] MEDS ORDERED: GLUCOSE 4 GM CHEW TABLET PO (02:15)
[2017-05-15] MEDS ORDERED: GLUCAGON FOR INJ 1 MG VIAL (J1610) SC (02:15)
[2017-05-15] MEDS ORDERED: BACITRACIN OINT 30GM TOP (02:15)
[2017-05-15] MEDS ORDERED: DEXTROSE 50% 50 ML SYRINGE IV (02:15)
[2017-05-15 02:41] LABS: HEMATOCRIT 27.1 % (42.0-52.0); HEMOGLOBIN 8.1 g/dl (14.0-18.0)
[2017-05-15] MEDS: VANCOMYCIN HCL 1,000 MG, VIAL MATE ADAPTER 1 EACH in D5W 250 ML IV ×2 (02:45→15:26)
[2017-05-15] MEDS ORDERED: VANCOMYCIN 1000 MG/20 ML VIAL (J3370) As Ordered (03:37)
[2017-05-15] MEDS: MEROPENEM INJ 1 GM in APPROPRIATE DILUENT 1 EA IV ×3 (04:00→20:43)
[2017-05-15] MEDS: HumaLOG INSULIN (NovoLOG) PER UNIT SC ×4 (07:30→21:00)
[2017-05-15] MEDS ORDERED: metFORMIN (GLUCOPHAGE) 1000 MG TABLET PEG (08:00)
[2017-05-15] MEDS: ALBUTEROL SULFATE 2.5 MG/0.5 ML INH NEB SOLN INH (08:08)
[2017-05-15 08:23] LABS: BEDSIDE GLUCOSE 163 MG/DL (80-115)
[2017-05-15] MEDS: PANTOPRAZOLE 40MG INJ (PROTONIX) (C9113) IV ×2 (08:39→21:47)
[2017-05-15] MEDS: LEVOTHYROXINE 75MCG TABLET (0.075MG) PEG (08:39)
[2017-05-15] MEDS: ASCORBIC ACID 500 MG TAB PEG ×2 (08:39→20:43)
[2017-05-15] MEDS: ALPRAZolam 0.25 MG TAB PEG ×3 (08:39→20:44)
[2017-05-15] MEDS: TERAZOSIN 5 MG CAP PEG (08:39)
[2017-05-15] MEDS: RILUZOLE 50 MG XX ×2 (08:40→20:44)
[2017-05-15] MEDS: CETIRIZINE (ZyrTEC) 10 MG TAB PEG (08:40)
[2017-05-15] MEDS: VITAMIN D 1,000 INTERNATIONAL UNITS TABLET PEG ×2 (08:40→20:47)
[2017-05-15] MEDS: buPROPion 75 MG TAB PEG (08:40)
[2017-05-15] MEDS: ALLOPURINOL 100 MG TAB PEG ×2 (08:41→20:43)
[2017-05-15] MEDS: MULTIVITAMINS CHILDREN'S CHEWABLE TABLET XX (08:41)
[2017-05-15] MEDS: ATORVASTATIN 20 MG TAB PEG (08:41)
[2017-05-15] MEDS: FUROSEMIDE 20 MG TAB PEG ×2 (08:41→20:44)
[2017-05-15] MEDS: FLUTICASONE PROP 0.05% NASAL SPRAY 16 GM (FLONASE) (08:41)
[2017-05-15] MEDS: MAGNESIUM OXIDE 400 MG TAB (MAG-OX) PEG (08:41)
[2017-05-15] MEDS: FOLIC ACID 1 MG TAB PEG (08:41)
[2017-05-15] MEDS ORDERED: PANTOPRAZOLE 40MG TAB (PROTONIX) PO (09:00)
[2017-05-15] MEDS: IPRATROPIUM 0.03% NASAL SPRAY 30 ML (ATROVENT) ×3 (09:00→21:48)
[2017-05-15] MEDS: IPRATROPIUM 0.06% NASAL SPRAY 15 ML (ATROVENT) (09:00)
[2017-05-15] MEDS ORDERED: oxyBUTYnin *DITROPAN XL* 5 MG TABCR PO (09:00)
[2017-05-15] MEDS: OMEPRAZOLE 20 MG CAP PO (09:00)
[2017-05-15] MEDS: OMEGA-3 1050MG CAPSULE PEG ×2 (09:52→20:43)
[2017-05-15] MEDS: DULoxetine 30 MG CAP (CYMBALTA) PO (09:53)
[2017-05-15 12:03] LABS: BASO % 0.2 % (0.0-1.0); EOS # 0.1 10^3/uL (0.0-0.50); EOS % 0.8 % (0.0-3.0); HEMATOCRIT 29.1 % (42.0-52.0); HEMOGLOBIN 8.6 g/dl (14.0-18.0); IMMATURE GRANULOCYTE # 0.3 10^3/uL (0-0); IMMATURE GRANULOCYTE % 1.8 % (0-0); LYMPH % 5.5 % (24.0-44.0); MEAN CORPUSCULAR HEMOGLOBIN 27.2 pg (27.0-33.0); MEAN CORPUSCULAR HGB CONC 29.6 g/dl (32.0-36.5); MEAN CORPUSCULAR VOLUME 92.1 fl (80.0-96.0); MONO # 0.7 10^3/uL (0.0-0.8); MONO % 3.8 % (0.0-5.0); NEUTROPHILS # 15.2 10^3/uL (1.8-7.7); NEUTROPHILS % 87.9 % (36.0-66.0); PLATELET COUNT, AUTOMATED 225 10^3/uL (150-450); RED BLOOD COUNT 3.16 10^6/uL (4.30-6.10); RED CELL DISTRIBUTION WIDTH 15.8 % (11.5-14.5); WHITE BLOOD COUNT 17.3 10^3/uL (4.0-10.0)
[2017-05-15] MEDS: FORMOTEROL FUMARATE 20 MCG/2 ML INHALATION SOLUTION (PERFOROMIST) INH ×2 (12:04→20:20)
[2017-05-15 12:34] LABS: ALBUMIN 2.5 GM/DL (3.2-5.2); ALBUMIN/GLOBULIN RATIO 0.61 (1.00-1.93); ALKALINE PHOSPHATASE 121 U/L (45-117); ALT/SGPT 14 U/L (12-78); ANION GAP 4 MEQ/L (8-16); AST/SGOT 15 U/L (7-37); BILIRUBIN,TOTAL 0.3 MG/DL (0.2-1.0); BLOOD UREA NITROGEN 61 MG/DL (7-18); CALCIUM LEVEL 9.6 MG/DL (8.8-10.2); CARBON DIOXIDE LEVEL 40 MEQ/L (21-32); CHLORIDE LEVEL 100 MEQ/L (98-107); CREATININE FOR GFR 0.84 MG/DL (0.70-1.30); GLOMERULAR FILTRATION RATE > 60.0 (>49); GLUCOSE, FASTING 111 MG/DL (80-110); POTASSIUM SERUM 4.6 MEQ/L (3.5-5.1); SODIUM LEVEL 144 MEQ/L (136-145); TOTAL PROTEIN 6.6 GM/DL (6.4-8.2)
[2017-05-15 12:38] LABS: CK-MB VALUE MASS 2.1 NG/ML (0.0-3.6); CPK CREATINE PHOSPHOKINASE 14 U/L (39-308); TROPONIN I < 0.02 NG/ML (< 0.10)
[2017-05-15 12:43] LABS: BEDSIDE GLUCOSE 123 MG/DL (80-115)
[2017-05-15] MEDS: hydrOXYzine 50 MG TAB PEG (12:45)
[2017-05-15] MEDS: TUBERCULIN PPD 5 UNITS/0.1 ML ID (13:10)
[2017-05-15 17:38] LABS: BEDSIDE GLUCOSE 327 MG/DL (80-115)
[2017-05-15] MEDS: BACLOFEN 10 MG TAB PEG (20:44)
[2017-05-15 21:13] LABS: BEDSIDE GLUCOSE 203 MG/DL (80-115)
[2017-05-16] MEDS: VANCOMYCIN HCL 1,000 MG, VIAL MATE ADAPTER 1 EACH in D5W 250 ML IV ×2 (03:44→15:24)
[2017-05-16] MEDS: MEROPENEM INJ 1 GM in APPROPRIATE DILUENT 1 EA IV ×3 (03:44→21:37)
[2017-05-16 04:20] LABS: BASO % 0.2 % (0.0-1.0); EOS # 0.3 10^3/uL (0.0-0.50); EOS % 1.8 % (0.0-3.0); HEMATOCRIT 25.2 % (42.0-52.0); HEMOGLOBIN 7.5 g/dl (14.0-18.0); IMMATURE GRANULOCYTE # 0.3 10^3/uL (0-0); IMMATURE GRANULOCYTE % 1.8 % (0-0); LYMPH # 1.3 10^3/uL (1.5-4.5); LYMPH % 8.6 % (24.0-44.0); MEAN CORPUSCULAR HEMOGLOBIN 26.9 pg (27.0-33.0); MEAN CORPUSCULAR HGB CONC 29.8 g/dl (32.0-36.5); MEAN CORPUSCULAR VOLUME 90.3 fl (80.0-96.0); MONO # 0.8 10^3/uL (0.0-0.8); NEUTROPHILS # 12.6 10^3/uL (1.8-7.7); NEUTROPHILS % 82.6 % (36.0-66.0); PLATELET COUNT, AUTOMATED 221 10^3/uL (150-450); RED BLOOD COUNT 2.79 10^6/uL (4.30-6.10); RED CELL DISTRIBUTION WIDTH 15.9 % (11.5-14.5); WHITE BLOOD COUNT 15.3 10^3/uL (4.0-10.0)
[2017-05-16 04:42] LABS: ANION GAP 4 MEQ/L (8-16); BLOOD UREA NITROGEN 58 MG/DL (7-18); CALCIUM LEVEL 9.2 MG/DL (8.8-10.2); CARBON DIOXIDE LEVEL 37 MEQ/L (21-32); CHLORIDE LEVEL 102 MEQ/L (98-107); CREATININE FOR GFR 0.87 MG/DL (0.70-1.30); GLOMERULAR FILTRATION RATE > 60.0 (>49); GLUCOSE, FASTING 161 MG/DL (80-110); POTASSIUM SERUM 4.5 MEQ/L (3.5-5.1); SODIUM LEVEL 143 MEQ/L (136-145)
[2017-05-16] MEDS: LEVOTHYROXINE 75MCG TABLET (0.075MG) PEG (06:15)
[2017-05-16] MEDS: HumaLOG INSULIN (NovoLOG) PER UNIT SC ×4 (07:30→20:45)
[2017-05-16] MEDS: DULoxetine 30 MG CAP (CYMBALTA) PO ×2 (09:00→10:22)
[2017-05-16] MEDS: FORMOTEROL FUMARATE 20 MCG/2 ML INHALATION SOLUTION (PERFOROMIST) INH ×2 (09:50→19:53)
[2017-05-16] MEDS: ATORVASTATIN 20 MG TAB PEG (10:21)
[2017-05-16] MEDS: ALLOPURINOL 100 MG TAB PEG ×2 (10:22→20:41)
[2017-05-16] MEDS: MAGNESIUM OXIDE 400 MG TAB (MAG-OX) PEG (10:22)
[2017-05-16] MEDS: FUROSEMIDE 20 MG TAB PEG ×2 (10:22→20:41)
[2017-05-16] MEDS: CETIRIZINE (ZyrTEC) 10 MG TAB PEG (10:22)
[2017-05-16] MEDS: FOLIC ACID 1 MG TAB PEG (10:23)
[2017-05-16] MEDS: buPROPion 75 MG TAB PEG (10:23)
[2017-05-16] MEDS: ASCORBIC ACID 500 MG TAB PEG ×2 (10:23→20:41)
[2017-05-16] MEDS: ALPRAZolam 0.25 MG TAB PEG ×3 (10:23→20:40)
[2017-05-16] MEDS: IPRATROPIUM 0.03% NASAL SPRAY 30 ML (ATROVENT) ×3 (10:24→21:00)
[2017-05-16] MEDS: FLUTICASONE PROP 0.05% NASAL SPRAY 16 GM (FLONASE) (10:24)
[2017-05-16] MEDS: VITAMIN D 1,000 INTERNATIONAL UNITS TABLET PEG ×2 (10:31→20:41)
[2017-05-16] MEDS: OMEGA-3 1050MG CAPSULE PEG ×2 (10:31→20:41)
[2017-05-16] MEDS: TERAZOSIN 5 MG CAP PEG (10:32)
[2017-05-16] MEDS: PANTOPRAZOLE 40MG INJ (PROTONIX) (C9113) IV ×2 (10:33→21:37)
[2017-05-16] MEDS: MULTIVITAMINS CHILDREN'S CHEWABLE TABLET XX (10:33)
[2017-05-16] MEDS: RILUZOLE 50 MG XX ×2 (10:33→20:40)
[2017-05-16 12:15] LABS: BEDSIDE GLUCOSE 228 MG/DL (80-115)
[2017-05-16 14:22] LABS: HEMATOCRIT 24.7 % (42.0-52.0); HEMOGLOBIN 7.4 g/dl (14.0-18.0)
[2017-05-16 15:35] LABS: VANCOMYCIN LEVEL TROUGH 19.5 UG/ML (10.0-20.0)
[2017-05-16 17:48] LABS: BEDSIDE GLUCOSE 197 MG/DL (80-115)
[2017-05-16 17:58] LABS: IMMEDIATE SPIN CROSSMATCH 1 2
[2017-05-16] MEDS: BACLOFEN 10 MG TAB PEG (20:41)
[2017-05-16 21:12] LABS: BEDSIDE GLUCOSE 216 MG/DL (80-115)
[2017-05-16] MEDS: ALBUTEROL SULFATE 2.5 MG/0.5 ML INH NEB SOLN INH (23:07)
[2017-05-16] MEDS: hydrOXYzine 50 MG TAB PEG (23:29)
[2017-05-17] MEDS: ACETAMINOPHEN TAB 650MG DOSE (2X325MG) PEG (01:20)
[2017-05-17] MEDS: METOPROLOL TART 12.5 MG PER 1/2 TAB PO ×3 (01:21→21:06)
[2017-05-17] MEDS: MEROPENEM INJ 1 GM in APPROPRIATE DILUENT 1 EA IV ×3 (03:55→21:07)
[2017-05-17] MEDS: LEVOTHYROXINE 75MCG TABLET (0.075MG) PEG (05:26)
[2017-05-17 06:50] LABS: CHLORIDE LEVEL 102 MEQ/L (98-107); POTASSIUM SERUM 4.2 MEQ/L (3.5-5.1); SODIUM LEVEL 143 MEQ/L (136-145)
[2017-05-17 06:53] LABS: ANION GAP 3 MEQ/L (8-16); BLOOD UREA NITROGEN 50 MG/DL (7-18); CALCIUM LEVEL 9.3 MG/DL (8.8-10.2); CARBON DIOXIDE LEVEL 38 MEQ/L (21-32); GLUCOSE, FASTING 160 MG/DL (80-110)
[2017-05-17 06:56] LABS: BASO % 0.3 % (0.0-1.0); CREATININE FOR GFR 0.86 MG/DL (0.70-1.30); EOS # 0.3 10^3/uL (0.0-0.50); EOS % 2.3 % (0.0-3.0); GLOMERULAR FILTRATION RATE > 60.0 (>49); HEMATOCRIT 28.9 % (42.0-52.0); HEMOGLOBIN 8.9 g/dl (14.0-18.0); IMMATURE GRANULOCYTE # 0.3 10^3/uL (0-0); LYMPH # 1.2 10^3/uL (1.5-4.5); LYMPH % 9.8 % (24.0-44.0); MEAN CORPUSCULAR HEMOGLOBIN 27.6 pg (27.0-33.0); MEAN CORPUSCULAR HGB CONC 30.8 g/dl (32.0-36.5); MEAN CORPUSCULAR VOLUME 89.5 fl (80.0-96.0); MONO # 0.8 10^3/uL (0.0-0.8); MONO % 6.7 % (0.0-5.0); NEUTROPHILS # 9.7 10^3/uL (1.8-7.7); NEUTROPHILS % 78.9 % (36.0-66.0); PLATELET COUNT, AUTOMATED 219 10^3/uL (150-450); RED BLOOD COUNT 3.23 10^6/uL (4.30-6.10); RED CELL DISTRIBUTION WIDTH 15.8 % (11.5-14.5); WHITE BLOOD COUNT 12.4 10^3/uL (4.0-10.0)
[2017-05-17] MEDS: FORMOTEROL FUMARATE 20 MCG/2 ML INHALATION SOLUTION (PERFOROMIST) INH ×2 (08:07→20:54)
[2017-05-17 08:43] LABS: BEDSIDE GLUCOSE 170 MG/DL (80-115)
[2017-05-17] MEDS: DULoxetine 30 MG CAP (CYMBALTA) PO (09:00)
[2017-05-17] MEDS: HumaLOG INSULIN (NovoLOG) PER UNIT SC ×4 (09:40→21:09)
[2017-05-17] MEDS: OMEGA-3 1050MG CAPSULE PEG ×2 (09:40→21:06)
[2017-05-17] MEDS: MAGNESIUM OXIDE 400 MG TAB (MAG-OX) PEG (09:41)
[2017-05-17] MEDS: ALLOPURINOL 100 MG TAB PEG ×2 (09:41→21:06)
[2017-05-17] MEDS: ALPRAZolam 0.25 MG TAB PEG ×3 (09:41→21:06)
[2017-05-17] MEDS: ATORVASTATIN 20 MG TAB PEG (09:41)
[2017-05-17] MEDS: TERAZOSIN 5 MG CAP PEG (09:41)
[2017-05-17] MEDS: FUROSEMIDE 20 MG TAB PEG ×2 (09:42→21:07)
[2017-05-17] MEDS: VITAMIN D 1,000 INTERNATIONAL UNITS TABLET PEG ×2 (09:43→21:07)
[2017-05-17] MEDS: FOLIC ACID 1 MG TAB PEG (09:43)
[2017-05-17] MEDS: RILUZOLE 50 MG XX ×2 (09:43→21:06)
[2017-05-17] MEDS: CETIRIZINE (ZyrTEC) 10 MG TAB PEG (09:43)
[2017-05-17] MEDS: ASCORBIC ACID 500 MG TAB PEG ×2 (09:44→21:07)
[2017-05-17] MEDS: buPROPion 75 MG TAB PEG (09:44)
[2017-05-17] MEDS: MULTIVITAMINS CHILDREN'S CHEWABLE TABLET XX (09:44)
[2017-05-17] MEDS: PANTOPRAZOLE 40MG INJ (PROTONIX) (C9113) IV ×2 (09:45→21:05)
[2017-05-17] MEDS: FLUTICASONE PROP 0.05% NASAL SPRAY 16 GM (FLONASE) (09:45)
[2017-05-17] MEDS: IPRATROPIUM 0.03% NASAL SPRAY 30 ML (ATROVENT) ×3 (09:45→21:58)
[2017-05-17] MEDS: VANCOMYCIN HCL 1,000 MG, VIAL MATE ADAPTER 1 EACH in D5W 250 ML IV (09:46)
[2017-05-17] MEDS: PPD DOCUMENTATION ENTRY MISC XX (10:00)
[2017-05-17 11:58] LABS: BEDSIDE GLUCOSE 241 MG/DL (80-115)
[2017-05-17 18:02] LABS: BEDSIDE GLUCOSE 255 MG/DL (80-115)
[2017-05-17 20:55] LABS: BEDSIDE GLUCOSE 151 MG/DL (80-115)
[2017-05-17] MEDS: BACLOFEN 10 MG TAB PEG (21:05)
[2017-05-18] MEDS: MEROPENEM INJ 1 GM in APPROPRIATE DILUENT 1 EA IV ×2 (03:47→12:29)
[2017-05-18] MEDS: VANCOMYCIN HCL 1,000 MG, VIAL MATE ADAPTER 1 EACH in D5W 250 ML IV (04:44)
[2017-05-18 05:51] LABS: BASO % 0.4 % (0.0-1.0); EOS # 0.3 10^3/uL (0.0-0.50); EOS % 3.2 % (0.0-3.0); HEMATOCRIT 27.4 % (42.0-52.0); HEMOGLOBIN 8.7 g/dl (14.0-18.0); IMMATURE GRANULOCYTE # 0.2 10^3/uL (0-0); IMMATURE GRANULOCYTE % 1.7 % (0-0); LYMPH # 1.2 10^3/uL (1.5-4.5); LYMPH % 12.8 % (24.0-44.0); MEAN CORPUSCULAR HEMOGLOBIN 28.7 pg (27.0-33.0); MEAN CORPUSCULAR HGB CONC 31.8 g/dl (32.0-36.5); MEAN CORPUSCULAR VOLUME 90.4 fl (80.0-96.0); MONO # 0.7 10^3/uL (0.0-0.8); MONO % 7.3 % (0.0-5.0); NEUTROPHILS # 6.8 10^3/uL (1.8-7.7); NEUTROPHILS % 74.6 % (36.0-66.0); PLATELET COUNT, AUTOMATED 204 10^3/uL (150-450); RED BLOOD COUNT 3.03 10^6/uL (4.30-6.10); RED CELL DISTRIBUTION WIDTH 15.9 % (11.5-14.5); WHITE BLOOD COUNT 9.1 10^3/uL (4.0-10.0)
[2017-05-18] MEDS: LEVOTHYROXINE 75MCG TABLET (0.075MG) PEG (05:55)
[2017-05-18 05:59] LABS: BEDSIDE GLUCOSE 194 MG/DL (80-115)
[2017-05-18 06:07] LABS: ANION GAP 5 MEQ/L (8-16); BLOOD UREA NITROGEN 45 MG/DL (7-18); CALCIUM LEVEL 9.1 MG/DL (8.8-10.2); CARBON DIOXIDE LEVEL 35 MEQ/L (21-32); CHLORIDE LEVEL 102 MEQ/L (98-107); CREATININE FOR GFR 0.82 MG/DL (0.70-1.30); GLOMERULAR FILTRATION RATE > 60.0 (>49); GLUCOSE, FASTING 170 MG/DL (80-110); SODIUM LEVEL 142 MEQ/L (136-145)
[2017-05-18] MEDS: FORMOTEROL FUMARATE 20 MCG/2 ML INHALATION SOLUTION (PERFOROMIST) INH (07:42)
[2017-05-18] MEDS: DULoxetine 30 MG CAP (CYMBALTA) PO (09:32)
[2017-05-18] MEDS: HumaLOG INSULIN (NovoLOG) PER UNIT SC ×2 (09:32→12:29)
[2017-05-18] MEDS: OMEGA-3 1050MG CAPSULE PEG (09:33)
[2017-05-18] MEDS: METOPROLOL TART 12.5 MG PER 1/2 TAB PO (09:33)
[2017-05-18] MEDS: RILUZOLE 50 MG XX (09:33)
[2017-05-18] MEDS: TERAZOSIN 5 MG CAP PEG (09:33)
[2017-05-18] MEDS: ALPRAZolam 0.25 MG TAB PEG (09:34)
[2017-05-18] MEDS: ASCORBIC ACID 500 MG TAB PEG (09:35)
[2017-05-18] MEDS: CETIRIZINE (ZyrTEC) 10 MG TAB PEG (09:35)
[2017-05-18] MEDS: MAGNESIUM OXIDE 400 MG TAB (MAG-OX) PEG (09:35)
[2017-05-18] MEDS: VITAMIN D 1,000 INTERNATIONAL UNITS TABLET PEG (09:35)
[2017-05-18] MEDS: MULTIVITAMINS CHILDREN'S CHEWABLE TABLET XX (09:35)
[2017-05-18] MEDS: ATORVASTATIN 20 MG TAB PEG (09:35)
[2017-05-18] MEDS: FOLIC ACID 1 MG TAB PEG (09:35)
[2017-05-18] MEDS: buPROPion 75 MG TAB PEG (09:35)
[2017-05-18] MEDS: PANTOPRAZOLE 40MG INJ (PROTONIX) (C9113) IV (09:36)
[2017-05-18] MEDS: FUROSEMIDE 20 MG TAB PEG (09:36)
[2017-05-18] MEDS: ALLOPURINOL 100 MG TAB PEG (09:36)
[2017-05-18] MEDS: FLUTICASONE PROP 0.05% NASAL SPRAY 16 GM (FLONASE) (09:50)
[2017-05-18] MEDS: IPRATROPIUM 0.03% NASAL SPRAY 30 ML (ATROVENT) (09:50)
[2017-05-18 12:22] LABS: BEDSIDE GLUCOSE 201 MG/DL (80-115)
[2017-05-18] MEDS: ALBUTEROL SULFATE 2.5 MG/0.5 ML INH NEB SOLN INH (12:46)
[2017-05-18] MEDS: ONDANSETRON 4 MG ORAL DISINTEGRATING TAB (S0181) PEG (13:38)
[2017-05-19 00:06] LABS: ANCA-ATYPICAL <1:20 titer (Neg:<1:20); ANTINUCLEAR ANTIBODIES DIRECT Negative (Negative); CYTOPLASMIC NEUTROP AB ANCA-C <1:20 titer (Neg:<1:20); PERINUCLEAR AB ANCA-P <1:20 titer (Neg:<1:20)
== END 2017-05-18 13:55 | disposition home or self-care (01) | DRG 206 ==
LOC: M ED INP 05-15 06:10 → M PCU 05-17 16:35 → M ED 19:28 → M ICU 05-15 07:49
PROC: 30233N1 Transfusion of Nonautologous Red Blood Cells into Peripheral Vein, Percutaneous Approach (ICD-10-PCS; principal; 2017-05-16)
DX: J95.01 Hemorrhage from tracheostomy stoma (principal); I50.32 Chronic diastolic (congestive) heart failure; G12.21 Amyotrophic lateral sclerosis; J21.9 Acute bronchiolitis, unspecified; J96.11 Chronic respiratory failure with hypoxia; J44.0 Chronic obstructive pulmonary disease with (acute) lower respiratory infection; E11.40 Type 2 diabetes mellitus with diabetic neuropathy, unspecified; K21.9 Gastro-esophageal reflux disease without esophagitis; E03.9 Hypothyroidism, unspecified; N40.0 Benign prostatic hyperplasia without lower urinary tract symptoms; E78.5 Hyperlipidemia, unspecified; R33.9 Retention of urine, unspecified; D64.9 Anemia, unspecified; R91.1 Solitary pulmonary nodule; Z93.1 Gastrostomy status; B96.5 Pseudomonas (aeruginosa) (mallei) (pseudomallei) as the cause of diseases classified elsewhere; Z79.899 Other long term (current) drug therapy; Z79.82 Long term (current) use of aspirin; F41.9 Anxiety disorder, unspecified; F32.9 Major depressive disorder, single episode, unspecified; I25.10 Atherosclerotic heart disease of native coronary artery without angina pectoris; E87.5 Hyperkalemia; D72.829 Elevated white blood cell count, unspecified; R00.0 Tachycardia, unspecified; Z88.8 Allergy status to other drugs, medicaments and biological substances; Z87.891 Personal history of nicotine dependence; K59.00 Constipation, unspecified; Y83.8 Other surgical procedures as the cause of abnormal reaction of the patient, or of later complication, without mention of misadventure at the time of the procedure

== ENCOUNTER 2017-05-28 19:14 | Emergency (ER) | payer OTHER, MEDICARE ==
[2017-05-28] MEDS: LORazepam 1 MG TAB PEG (20:04)
[2017-05-28] MEDS ORDERED: IPRATROPIUM 0.5MG/ALBUTEROL 2.5MG INH SOL UD 3ML (DUONEB)(J7620) As Ordered (20:44)
[2017-05-28] MEDS: IPRATROPIUM 0.5MG/ALBUTEROL 2.5MG INH SOL UD 3ML (DUONEB)(J7620) NEB (20:47)
== END 2017-05-28 22:54 | disposition home or self-care (01) ==
LOC: M ED 19:14
DX: J95.03 Malfunction of tracheostomy stoma (principal); R06.02 Shortness of breath; R00.0 Tachycardia, unspecified; G12.21 Amyotrophic lateral sclerosis; Z88.8 Allergy status to other drugs, medicaments and biological substances; Z79.899 Other long term (current) drug therapy; Z79.84 Long term (current) use of oral hypoglycemic drugs; Z79.82 Long term (current) use of aspirin
CPT/HCPCS: 94640

== ENCOUNTER 2017-06-06 14:36 | Inpatient (IN) | payer OTHER, MEDICARE ==
[2017-06-06 15:14] LABS: BASO # 0.1 10^3/uL (0.0-0.2); BASO % 0.5 % (0.0-1.0); EOS # 0.1 10^3/uL (0.0-0.50); EOS % 1.4 % (0.0-3.0); HEMATOCRIT 31.1 % (42.0-52.0); HEMOGLOBIN 9.2 g/dl (14.0-18.0); IMMATURE GRANULOCYTE # 0.1 10^3/uL (0-0); IMMATURE GRANULOCYTE % 1.1 % (0-0); LYMPH # 1.1 10^3/uL (1.5-4.5); LYMPH % 11.7 % (24.0-44.0); MEAN CORPUSCULAR HEMOGLOBIN 28.4 pg (27.0-33.0); MEAN CORPUSCULAR HGB CONC 29.6 g/dl (32.0-36.5); MONO # 0.7 10^3/uL (0.0-0.8); MONO % 7.1 % (0.0-5.0); NEUTROPHILS # 7.3 10^3/uL (1.8-7.7); NEUTROPHILS % 78.2 % (36.0-66.0); PLATELET COUNT, AUTOMATED 138 10^3/uL (150-450); RED BLOOD COUNT 3.24 10^6/uL (4.30-6.10); RED CELL DISTRIBUTION WIDTH 15.9 % (11.5-14.5); WHITE BLOOD COUNT 9.3 10^3/uL (4.0-10.0)
[2017-06-06 15:29] LABS: ANION GAP 6 MEQ/L (8-16); BLOOD UREA NITROGEN 60 MG/DL (7-18); CALCIUM LEVEL 9.4 MG/DL (8.8-10.2); CARBON DIOXIDE LEVEL 33 MEQ/L (21-32); CHLORIDE LEVEL 103 MEQ/L (98-107); CK-MB VALUE MASS 3.7 NG/ML (0.0-3.6); CPK CREATINE PHOSPHOKINASE 18 U/L (39-308); CREATININE FOR GFR 1.32 MG/DL (0.70-1.30); GLOMERULAR FILTRATION RATE 57.3 (>49); GLUCOSE, FASTING 236 MG/DL (70-100); MB/CK RELATIVE INDEX 20.55 (< OR =4); SODIUM LEVEL 142 MEQ/L (136-145); TROPONIN I < 0.02 NG/ML (< 0.10)
[2017-06-06 15:31] LABS: POTASSIUM SERUM 5.2 MEQ/L (3.5-5.1)
[2017-06-06] MEDS: PIPERACILLIN/TAZOBACTAM SOD 3.375 GM in APPROPRIATE DILUENT 1 EA IV (16:30)
[2017-06-06 17:08] LABS: ABG BASE EXCESS 4.4 (-2.0-2.0); ABG O2 SATURATION 96.1 % (95.0-99.0); ABG PARTIAL PRESSURE CO2 58.3 mmHg (35.0-45.0); ABG PARTIAL PRESSURE O2 88.9 mmHg (75.0-100.0); ABG STANDARD HCO3 28.4 MEQ/L (22.0-26.0); ABG TOTAL CO2 32.8 MEQ/L (23.0-31.0); ABG pH (ARTERIAL) 7.343 UNITS (7.350-7.450)
[2017-06-06] MEDS ORDERED: hydrOXYzine 50 MG TAB PEG (17:45)
[2017-06-06] MEDS ORDERED: DEXTROSE 50% 50 ML SYRINGE IV (17:45)
[2017-06-06] MEDS ORDERED: BACITRACIN OINT 30GM TOP (17:45)
[2017-06-06] MEDS ORDERED: GLUCAGON FOR INJ 1 MG VIAL (J1610) SC (17:45)
[2017-06-06] MEDS ORDERED: GLUCOSE 4 GM CHEW TABLET PO (17:45)
[2017-06-06] MEDS: VANCOMYCIN HCL 1,000 MG, VIAL MATE ADAPTER 1 EACH in D5W 250 ML IV (18:21)
[2017-06-06] MEDS: HumaLOG INSULIN (NovoLOG) PER UNIT SC (21:00)
[2017-06-06] MEDS: BACLOFEN 10 MG TAB PEG (21:09)
[2017-06-06] MEDS: RILUZOLE 50 MG PO (21:10)
[2017-06-06] MEDS: VITAMIN D (CHOLECALCIFEROL) 400 INTERNATIONAL UNITS TAB PEG (21:10)
[2017-06-06] MEDS: ASCORBIC ACID 500 MG TAB PEG (21:10)
[2017-06-06] MEDS: oxyBUTYnin 5 MG TAB PO (21:10)
[2017-06-06] MEDS: TERAZOSIN 5 MG CAP PEG (21:11)
[2017-06-06] MEDS: ALLOPURINOL 100 MG TAB PEG (21:11)
[2017-06-06] MEDS: IPRATROPIUM 0.06% NASAL SPRAY 15 ML (ATROVENT) (21:12)
[2017-06-06] MEDS: FORMOTEROL FUMARATE 20 MCG/2 ML INHALATION SOLUTION (PERFOROMIST) INH (21:23)
[2017-06-06 21:54] LABS: BEDSIDE GLUCOSE 145 MG/DL (80-115)
[2017-06-06 22:39] LABS: ANION GAP 6 MEQ/L (8-16); BLOOD UREA NITROGEN 58 MG/DL (7-18); CALCIUM LEVEL 9.6 MG/DL (8.8-10.2); CARBON DIOXIDE LEVEL 32 MEQ/L (21-32); CHLORIDE LEVEL 104 MEQ/L (98-107); CREATININE FOR GFR 1.18 MG/DL (0.70-1.30); GLOMERULAR FILTRATION RATE > 60.0 (>49); GLUCOSE, FASTING 126 MG/DL (70-100); SODIUM LEVEL 142 MEQ/L (136-145)
[2017-06-07 05:15] LABS: BASO % 0.2 % (0.0-1.0); EOS # 0.1 10^3/uL (0.0-0.50); EOS % 0.9 % (0.0-3.0); HEMATOCRIT 26.2 % (42.0-52.0); HEMOGLOBIN 7.9 g/dl (14.0-18.0); IMMATURE GRANULOCYTE # 0.1 10^3/uL (0-0); IMMATURE GRANULOCYTE % 0.9 % (0-0); LYMPH % 9.8 % (24.0-44.0); MEAN CORPUSCULAR HEMOGLOBIN 28.1 pg (27.0-33.0); MEAN CORPUSCULAR HGB CONC 30.2 g/dl (32.0-36.5); MEAN CORPUSCULAR VOLUME 93.2 fl (80.0-96.0); MONO # 0.9 10^3/uL (0.0-0.8); MONO % 8.6 % (0.0-5.0); NEUTROPHILS # 7.9 10^3/uL (1.8-7.7); NEUTROPHILS % 79.6 % (36.0-66.0); PLATELET COUNT, AUTOMATED 150 10^3/uL (150-450); RED BLOOD COUNT 2.81 10^6/uL (4.30-6.10); RED CELL DISTRIBUTION WIDTH 15.8 % (11.5-14.5)
[2017-06-07 05:30] LABS: ANION GAP 6 MEQ/L (8-16); BLOOD UREA NITROGEN 58 MG/DL (7-18); CALCIUM LEVEL 9.8 MG/DL (8.8-10.2); CARBON DIOXIDE LEVEL 33 MEQ/L (21-32); CHLORIDE LEVEL 104 MEQ/L (98-107); GLOMERULAR FILTRATION RATE > 60.0 (>49); GLUCOSE, FASTING 160 MG/DL (70-100); POTASSIUM SERUM 4.5 MEQ/L (3.5-5.1); SODIUM LEVEL 143 MEQ/L (136-145)
[2017-06-07] MEDS: LEVOTHYROXINE 75MCG TABLET (0.075MG) PEG (05:39)
[2017-06-07] MEDS: oxyBUTYnin 5 MG TAB PO ×3 (05:39→20:52)
[2017-06-07] MEDS: FORMOTEROL FUMARATE 20 MCG/2 ML INHALATION SOLUTION (PERFOROMIST) INH ×2 (08:05→19:15)
[2017-06-07] MEDS: buPROPion 75 MG TAB PEG (08:59)
[2017-06-07] MEDS: RILUZOLE 50 MG PO ×2 (08:59→20:53)
[2017-06-07] MEDS: ASCORBIC ACID 500 MG TAB PEG ×2 (08:59→20:52)
[2017-06-07] MEDS: FUROSEMIDE 20 MG TAB PEG (09:00)
[2017-06-07] MEDS: VITAMIN D (CHOLECALCIFEROL) 400 INTERNATIONAL UNITS TAB PEG ×2 (09:00→20:52)
[2017-06-07] MEDS: MAGNESIUM OXIDE 400 MG TAB (MAG-OX) PEG (09:00)
[2017-06-07] MEDS: FLUTICASONE PROP 0.05% NASAL SPRAY 16 GM (FLONASE) (09:00)
[2017-06-07] MEDS: CETIRIZINE (ZyrTEC) 10 MG TAB PEG (09:00)
[2017-06-07] MEDS: ATORVASTATIN 20 MG TAB PEG (09:00)
[2017-06-07] MEDS: FOLIC ACID 1 MG TAB PEG (09:00)
[2017-06-07] MEDS: ALLOPURINOL 100 MG TAB PEG ×2 (09:00→20:52)
[2017-06-07] MEDS: ASPIRIN 81 MG CHEW TABLET PEG (09:00)
[2017-06-07] MEDS: IPRATROPIUM 0.06% NASAL SPRAY 15 ML (ATROVENT) ×3 (09:01→20:54)
[2017-06-07] MEDS: HumaLOG INSULIN (NovoLOG) PER UNIT SC ×4 (09:01→21:00)
[2017-06-07 11:44] LABS: BEDSIDE GLUCOSE 253 MG/DL (80-115)
[2017-06-07] MEDS: CHLORASEPTIC SPRAY MT ×4 (11:49→20:54)
[2017-06-07 12:28] LABS: BASO % 0.1 % (0.0-1.0); EOS # 0.1 10^3/uL (0.0-0.50); EOS % 0.8 % (0.0-3.0); HEMATOCRIT 25.5 % (42.0-52.0); HEMOGLOBIN 7.9 g/dl (14.0-18.0); IMMATURE GRANULOCYTE # 0.1 10^3/uL (0-0); IMMATURE GRANULOCYTE % 1.1 % (0-0); LYMPH # 1.1 10^3/uL (1.5-4.5); LYMPH % 10.7 % (24.0-44.0); MEAN CORPUSCULAR HEMOGLOBIN 28.7 pg (27.0-33.0); MEAN CORPUSCULAR VOLUME 92.7 fl (80.0-96.0); MONO # 0.8 10^3/uL (0.0-0.8); MONO % 7.8 % (0.0-5.0); NEUTROPHILS % 79.5 % (36.0-66.0); PLATELET COUNT, AUTOMATED 143 10^3/uL (150-450); RED BLOOD COUNT 2.75 10^6/uL (4.30-6.10); RED CELL DISTRIBUTION WIDTH 15.9 % (11.5-14.5)
[2017-06-07 16:52] LABS: BEDSIDE GLUCOSE 215 MG/DL (80-115)
[2017-06-07] MEDS ORDERED: SLF 3 ML SYR IV (17:00)
[2017-06-07] MEDS: ONDANSETRON 4 MG ORAL DISINTEGRATING TAB (S0181) PEG (18:06)
[2017-06-07] MEDS: BACLOFEN 10 MG TAB PEG (20:52)
[2017-06-07] MEDS: TERAZOSIN 5 MG CAP PEG (20:53)
[2017-06-07] MEDS: SLF 3 ML SYR IV (20:55)
[2017-06-07 21:26] LABS: BEDSIDE GLUCOSE 245 MG/DL (80-115)
[2017-06-08 04:32] LABS: BASO % 0.1 % (0.0-1.0); EOS # 0.1 10^3/uL (0.0-0.50); EOS % 1.1 % (0.0-3.0); HEMATOCRIT 22.4 % (42.0-52.0); IMMATURE GRANULOCYTE # 0.1 10^3/uL (0-0); IMMATURE GRANULOCYTE % 1.4 % (0-0); LYMPH # 1.3 10^3/uL (1.5-4.5); LYMPH % 15.7 % (24.0-44.0); MEAN CORPUSCULAR HEMOGLOBIN 28.2 pg (27.0-33.0); MEAN CORPUSCULAR HGB CONC 30.8 g/dl (32.0-36.5); MEAN CORPUSCULAR VOLUME 91.4 fl (80.0-96.0); MONO # 0.8 10^3/uL (0.0-0.8); NEUTROPHILS # 6.2 10^3/uL (1.8-7.7); NEUTROPHILS % 72.7 % (36.0-66.0); PLATELET COUNT, AUTOMATED 154 10^3/uL (150-450); RED BLOOD COUNT 2.45 10^6/uL (4.30-6.10); RED CELL DISTRIBUTION WIDTH 15.5 % (11.5-14.5); WHITE BLOOD COUNT 8.5 10^3/uL (4.0-10.0)
[2017-06-08 04:47] LABS: ANION GAP 6 MEQ/L (8-16); BLOOD UREA NITROGEN 55 MG/DL (7-18); CALCIUM LEVEL 9.3 MG/DL (8.8-10.2); CARBON DIOXIDE LEVEL 34 MEQ/L (21-32); CHLORIDE LEVEL 102 MEQ/L (98-107); CREATININE FOR GFR 0.96 MG/DL (0.70-1.30); GLOMERULAR FILTRATION RATE > 60.0 (>49); GLUCOSE, FASTING 169 MG/DL (70-100); POTASSIUM SERUM 4.1 MEQ/L (3.5-5.1); SODIUM LEVEL 142 MEQ/L (136-145)
[2017-06-08 04:56] LABS: HEMOGLOBIN 6.9 g/dl (14.0-18.0)
[2017-06-08] MEDS: oxyBUTYnin 5 MG TAB PO ×3 (05:37→22:53)
[2017-06-08] MEDS: LEVOTHYROXINE 75MCG TABLET (0.075MG) PEG (05:37)
[2017-06-08] MEDS: SLF 3 ML SYR IV ×3 (05:37→22:54)
[2017-06-08 06:03] LABS: IMMEDIATE SPIN CROSSMATCH 1 2
[2017-06-08 06:46] LABS: SLIDE REVIEW Report; SOURCE PERIPHERAL SMEAR
[2017-06-08 06:47] LABS: REASON FOR REVIEW ANEMIA / RBC MORPH
[2017-06-08 06:50] LABS: RETIC HEMOGLOBIN EQUIVALENT 26.7 pg (24-36); RETICULOCYTE # 67.6 10^9/L (17-77); RETICULOCYTE % 2.8 % (0.5-1.5)
[2017-06-08] MEDS: FORMOTEROL FUMARATE 20 MCG/2 ML INHALATION SOLUTION (PERFOROMIST) INH ×2 (07:33→21:10)
[2017-06-08 08:13] LABS: FERRITIN 795 NG/ML (26-388); IRON (FE) 21 UG/DL (65-175); PERCENT SATURATION 11.6 % (19.7-50.0); TOTAL IRON BINDING CAPACITY 181 UG/DL (250-450)
[2017-06-08] MEDS: ASPIRIN 81 MG CHEW TABLET PEG (09:44)
[2017-06-08] MEDS: FUROSEMIDE 20 MG TAB PEG (09:45)
[2017-06-08] MEDS: ASCORBIC ACID 500 MG TAB PEG ×2 (09:45→22:52)
[2017-06-08] MEDS: MAGNESIUM OXIDE 400 MG TAB (MAG-OX) PEG (09:45)
[2017-06-08] MEDS: VITAMIN D (CHOLECALCIFEROL) 400 INTERNATIONAL UNITS TAB PEG ×2 (09:45→22:53)
[2017-06-08] MEDS: FOLIC ACID 1 MG TAB PEG (09:45)
[2017-06-08] MEDS: ATORVASTATIN 20 MG TAB PEG (09:45)
[2017-06-08] MEDS: ALLOPURINOL 100 MG TAB PEG ×2 (09:46→22:53)
[2017-06-08] MEDS: RILUZOLE 50 MG PO ×2 (09:46→22:53)
[2017-06-08] MEDS: buPROPion 75 MG TAB PEG (09:46)
[2017-06-08] MEDS: FLUTICASONE PROP 0.05% NASAL SPRAY 16 GM (FLONASE) (09:46)
[2017-06-08] MEDS: CETIRIZINE (ZyrTEC) 10 MG TAB PEG (09:46)
[2017-06-08] MEDS: IPRATROPIUM 0.06% NASAL SPRAY 15 ML (ATROVENT) ×3 (09:47→22:50)
[2017-06-08] MEDS: HumaLOG INSULIN (NovoLOG) PER UNIT SC ×4 (10:02→21:00)
[2017-06-08 11:43] LABS: BEDSIDE GLUCOSE 233 MG/DL (80-115)
[2017-06-08 12:02] LABS: HEMATOCRIT 28.8 % (42.0-52.0)
[2017-06-08] MEDS: CHLORASEPTIC SPRAY MT ×2 (12:02→19:00)
[2017-06-08 12:24] LABS: HEMOGLOBIN 9.1 g/dl (14.0-18.0)
[2017-06-08 17:20] LABS: BEDSIDE GLUCOSE 145 MG/DL (80-115)
[2017-06-08] MEDS: PIPERACILLIN/TAZOBACTAM SOD 3.375 GM in APPROPRIATE DILUENT 1 EA IV (21:27)
[2017-06-08 22:07] LABS: BEDSIDE GLUCOSE 150 MG/DL (80-115)
[2017-06-08] MEDS: BACLOFEN 10 MG TAB PEG (22:52)
[2017-06-08] MEDS: TERAZOSIN 5 MG CAP PEG (22:52)
[2017-06-09] MEDS: PIPERACILLIN/TAZOBACTAM SOD 3.375 GM in APPROPRIATE DILUENT 1 EA IV ×4 (01:30→15:51)
[2017-06-09] MEDS: oxyBUTYnin 5 MG TAB PO ×3 (05:36→21:01)
[2017-06-09] MEDS: LEVOTHYROXINE 75MCG TABLET (0.075MG) PEG (05:36)
[2017-06-09] MEDS: SLF 3 ML SYR IV ×3 (05:42→22:07)
[2017-06-09] MEDS: FORMOTEROL FUMARATE 20 MCG/2 ML INHALATION SOLUTION (PERFOROMIST) INH ×2 (07:12→20:07)
[2017-06-09 07:21] LABS: BASO % 0.4 % (0.0-1.0); EOS # 0.2 10^3/uL (0.0-0.50); EOS % 1.8 % (0.0-3.0); HEMATOCRIT 29.2 % (42.0-52.0); HEMOGLOBIN 9.2 g/dl (14.0-18.0); LYMPH # 1.4 10^3/uL (1.5-4.5); MEAN CORPUSCULAR HEMOGLOBIN 28.7 pg (27.0-33.0); MEAN CORPUSCULAR HGB CONC 31.5 g/dl (32.0-36.5); MONO # 0.8 10^3/uL (0.0-0.8); MONO % 8.1 % (0.0-5.0); NEUTROPHILS # 6.8 10^3/uL (1.8-7.7); NEUTROPHILS % 72.7 % (36.0-66.0); PLATELET COUNT, AUTOMATED 139 10^3/uL (150-450); RED BLOOD COUNT 3.21 10^6/uL (4.30-6.10); RED CELL DISTRIBUTION WIDTH 15.2 % (11.5-14.5); WHITE BLOOD COUNT 9.4 10^3/uL (4.0-10.0)
[2017-06-09 07:38] LABS: ANION GAP 8 MEQ/L (8-16); BLOOD UREA NITROGEN 48 MG/DL (7-18); CALCIUM LEVEL 10.1 MG/DL (8.8-10.2); CARBON DIOXIDE LEVEL 32 MEQ/L (21-32); CHLORIDE LEVEL 100 MEQ/L (98-107); CREATININE FOR GFR 1.04 MG/DL (0.70-1.30); GLOMERULAR FILTRATION RATE > 60.0 (>49); GLUCOSE, FASTING 134 MG/DL (70-100); POTASSIUM SERUM 3.8 MEQ/L (3.5-5.1); SODIUM LEVEL 140 MEQ/L (136-145)
[2017-06-09] MEDS: HumaLOG INSULIN (NovoLOG) PER UNIT SC ×4 (08:45→21:00)
[2017-06-09] MEDS: CHLORASEPTIC SPRAY MT ×2 (08:45→17:52)
[2017-06-09] MEDS: FUROSEMIDE 20 MG TAB PEG (08:46)
[2017-06-09] MEDS: MAGNESIUM OXIDE 400 MG TAB (MAG-OX) PEG (08:46)
[2017-06-09] MEDS: FOLIC ACID 1 MG TAB PEG (08:46)
[2017-06-09] MEDS: VITAMIN D (CHOLECALCIFEROL) 400 INTERNATIONAL UNITS TAB PEG ×2 (08:46→21:01)
[2017-06-09] MEDS: ALLOPURINOL 100 MG TAB PEG ×2 (08:46→21:01)
[2017-06-09] MEDS: buPROPion 75 MG TAB PEG (08:46)
[2017-06-09] MEDS: RILUZOLE 50 MG PO ×2 (08:46→21:01)
[2017-06-09] MEDS: ASPIRIN 81 MG CHEW TABLET PEG (08:46)
[2017-06-09] MEDS: ASCORBIC ACID 500 MG TAB PEG ×2 (08:47→21:01)
[2017-06-09] MEDS: CETIRIZINE (ZyrTEC) 10 MG TAB PEG (08:47)
[2017-06-09] MEDS: FLUTICASONE PROP 0.05% NASAL SPRAY 16 GM (FLONASE) (08:47)
[2017-06-09] MEDS: IPRATROPIUM 0.06% NASAL SPRAY 15 ML (ATROVENT) ×4 (08:47→22:06)
[2017-06-09] MEDS: ATORVASTATIN 20 MG TAB PEG (08:49)
[2017-06-09] MEDS: ONDANSETRON 4 MG ORAL DISINTEGRATING TAB (S0181) PEG (11:28)
[2017-06-09] MEDS: SENNA SYRUP 15 ML UDC PEG (12:31)
[2017-06-09] MEDS: ACETAMINOPHEN TAB 650MG DOSE (2X325MG) PEG ×2 (14:26→21:02)
[2017-06-09] MEDS: ALPRAZolam 0.5 MG TAB PEG ×2 (14:26→21:01)
[2017-06-09 17:08] LABS: BEDSIDE GLUCOSE 341 MG/DL (80-115)
[2017-06-09] MEDS: TERAZOSIN 5 MG CAP PEG (21:00)
[2017-06-09] MEDS: BACLOFEN 10 MG TAB PEG (21:01)
[2017-06-09] MEDS ORDERED: SENOKOT S TAB PO (21:45)
[2017-06-09] MEDS: MOM 30ML SUSPENSION UDC PO (22:00)
[2017-06-10 00:13] LABS: BEDSIDE GLUCOSE 200 MG/DL (80-115)
[2017-06-10] MEDS: PIPERACILLIN/TAZOBACTAM SOD 3.375 GM in APPROPRIATE DILUENT 1 EA IV ×2 (01:42→06:55)
[2017-06-10] MEDS: oxyBUTYnin 5 MG TAB PO (05:51)
[2017-06-10] MEDS: LEVOTHYROXINE 75MCG TABLET (0.075MG) PEG (05:51)
[2017-06-10] MEDS: SLF 3 ML SYR IV (05:51)
[2017-06-10 06:03] LABS: BASO % 0.3 % (0.0-1.0); EOS # 0.2 10^3/uL (0.0-0.50); EOS % 2.6 % (0.0-3.0); HEMATOCRIT 31.6 % (42.0-52.0); HEMOGLOBIN 9.8 g/dl (14.0-18.0); IMMATURE GRANULOCYTE % 1.6 % (0-3.0); LYMPH # 0.9 10^3/uL (1.5-4.5); LYMPH % 11.1 % (24.0-44.0); MEAN CORPUSCULAR HEMOGLOBIN 28.1 pg (27.0-33.0); MEAN CORPUSCULAR VOLUME 90.5 fl (80.0-96.0); MONO # 0.6 10^3/uL (0.0-0.8); MONO % 8.2 % (0.0-5.0); NEUTROPHILS # 5.8 10^3/uL (1.8-7.7); NEUTROPHILS % 76.2 % (36.0-66.0); PLATELET COUNT, AUTOMATED 129 10^3/uL (150-450); RED BLOOD COUNT 3.49 10^6/uL (4.30-6.10); RED CELL DISTRIBUTION WIDTH 14.9 % (11.5-14.5); WHITE BLOOD COUNT 7.7 10^3/uL (4.0-10.0)
[2017-06-10 06:25] LABS: ANION GAP 6 MEQ/L (8-16); BLOOD UREA NITROGEN 47 MG/DL (7-18); CALCIUM LEVEL 9.4 MG/DL (8.8-10.2); CARBON DIOXIDE LEVEL 33 MEQ/L (21-32); CHLORIDE LEVEL 100 MEQ/L (98-107); CREATININE FOR GFR 0.95 MG/DL (0.70-1.30); GLOMERULAR FILTRATION RATE > 60.0 (>49); GLUCOSE, FASTING 168 MG/DL (70-100); POTASSIUM SERUM 3.9 MEQ/L (3.5-5.1); SODIUM LEVEL 139 MEQ/L (136-145)
[2017-06-10] MEDS: FORMOTEROL FUMARATE 20 MCG/2 ML INHALATION SOLUTION (PERFOROMIST) INH (07:05)
[2017-06-10] MEDS: MAGNESIUM OXIDE 400 MG TAB (MAG-OX) PEG (08:33)
[2017-06-10] MEDS: CETIRIZINE (ZyrTEC) 10 MG TAB PEG (08:33)
[2017-06-10] MEDS: ATORVASTATIN 20 MG TAB PEG (08:33)
[2017-06-10] MEDS: ASPIRIN 81 MG CHEW TABLET PEG (08:33)
[2017-06-10] MEDS: ASCORBIC ACID 500 MG TAB PEG (08:33)
[2017-06-10] MEDS: HumaLOG INSULIN (NovoLOG) PER UNIT SC (08:33)
[2017-06-10] MEDS: FUROSEMIDE 20 MG TAB PEG (08:34)
[2017-06-10] MEDS: ALPRAZolam 0.5 MG TAB PEG (08:34)
[2017-06-10] MEDS: ALLOPURINOL 100 MG TAB PEG (08:34)
[2017-06-10] MEDS: RILUZOLE 50 MG PO (08:34)
[2017-06-10] MEDS: VITAMIN D (CHOLECALCIFEROL) 400 INTERNATIONAL UNITS TAB PEG (08:34)
[2017-06-10] MEDS: FOLIC ACID 1 MG TAB PEG (08:35)
[2017-06-10] MEDS: FLUTICASONE PROP 0.05% NASAL SPRAY 16 GM (FLONASE) (08:35)
[2017-06-10] MEDS: IPRATROPIUM 0.06% NASAL SPRAY 15 ML (ATROVENT) (08:35)
[2017-06-10] MEDS: buPROPion 75 MG TAB PEG (08:35)
== END 2017-06-10 10:50 | disposition home or self-care (01) | DRG 208 ==
LOC: M PCU 06-08 15:35 → M ED 14:36 → M ED INP 16:28 → M ICU 19:04
PROC: 5A1945Z Respiratory Ventilation, 24-96 Consecutive Hours (ICD-10-PCS; 2017-06-07)
PROC: 30233N1 Transfusion of Nonautologous Red Blood Cells into Peripheral Vein, Percutaneous Approach (ICD-10-PCS; principal; 2017-06-08)
DX: J95.03 Malfunction of tracheostomy stoma (principal); J69.0 Pneumonitis due to inhalation of food and vomit; G12.21 Amyotrophic lateral sclerosis; I50.32 Chronic diastolic (congestive) heart failure; E87.2 Acidosis; J96.11 Chronic respiratory failure with hypoxia; E78.5 Hyperlipidemia, unspecified; E87.5 Hyperkalemia; K21.9 Gastro-esophageal reflux disease without esophagitis; D63.8 Anemia in other chronic diseases classified elsewhere; E11.40 Type 2 diabetes mellitus with diabetic neuropathy, unspecified; E03.9 Hypothyroidism, unspecified; I25.10 Atherosclerotic heart disease of native coronary artery without angina pectoris; N40.1 Benign prostatic hyperplasia with lower urinary tract symptoms; Z99.81 Dependence on supplemental oxygen; Z79.82 Long term (current) use of aspirin; Z79.84 Long term (current) use of oral hypoglycemic drugs; Z88.8 Allergy status to other drugs, medicaments and biological substances; Z95.5 Presence of coronary angioplasty implant and graft; Z87.891 Personal history of nicotine dependence; Z96.0 Presence of urogenital implants; Z79.899 Other long term (current) drug therapy

== ENCOUNTER 2017-06-20 02:31 | Inpatient (IN) | payer OTHER, MEDICARE ==
[2017-06-20] MEDS: LIDOCAINE 1% MDV 20ML VIAL IM (04:18)
[2017-06-20] MEDS ORDERED: hydrOXYzine 50 MG TAB PO (05:00)
[2017-06-20 05:01] LABS: BASO # 0.1 10^3/uL (0.0-0.2); BASO % 0.4 % (0.0-1.0); EOS # 0.1 10^3/uL (0.0-0.50); EOS % 0.4 % (0.0-3.0); HEMATOCRIT 30.9 % (42.0-52.0); HEMOGLOBIN 9.2 g/dl (14.0-18.0); IMMATURE GRANULOCYTE % 3.6 % (0-3.0); LYMPH # 0.6 10^3/uL (1.5-4.5); LYMPH % 3.6 % (24.0-44.0); MEAN CORPUSCULAR HEMOGLOBIN 28.9 pg (27.0-33.0); MEAN CORPUSCULAR HGB CONC 29.8 g/dl (32.0-36.5); MEAN CORPUSCULAR VOLUME 97.2 fl (80.0-96.0); MONO # 0.5 10^3/uL (0.0-0.8); MONO % 3.1 % (0.0-5.0); NEUTROPHILS # 14.4 10^3/uL (1.8-7.7); NEUTROPHILS % 88.9 % (36.0-66.0); PLATELET COUNT, AUTOMATED 203 10^3/uL (150-450); RED BLOOD COUNT 3.18 10^6/uL (4.30-6.10); RED CELL DISTRIBUTION WIDTH 14.8 % (11.5-14.5); WHITE BLOOD COUNT 16.3 10^3/uL (4.0-10.0)
[2017-06-20 05:19] LABS: ABG BASE EXCESS 6.1 (-2.0-2.0); ABG HCO3 31.8 MEQ/L (22.0-26.0); ABG PARTIAL PRESSURE CO2 51.9 mmHg (35.0-45.0); ABG PARTIAL PRESSURE O2 101.8 mmHg (75.0-100.0); ABG STANDARD HCO3 30.1 MEQ/L (22.0-26.0); ABG TOTAL CO2 33.4 MEQ/L (23.0-31.0); ABG pH (ARTERIAL) 7.405 UNITS (7.350-7.450)
[2017-06-20 05:24] LABS: ALBUMIN 2.5 GM/DL (3.2-5.2); ALBUMIN/GLOBULIN RATIO 0.51 (1.00-1.93); ALKALINE PHOSPHATASE 129 U/L (45-117); ALT/SGPT 16 U/L (12-78); ANION GAP 8 MEQ/L (8-16); AST/SGOT 10 U/L (7-37); BILIRUBIN,TOTAL 0.3 MG/DL (0.2-1.0); BLOOD UREA NITROGEN 94 MG/DL (7-18); CALCIUM LEVEL 9.8 MG/DL (8.8-10.2); CARBON DIOXIDE LEVEL 35 MEQ/L (21-32); CHLORIDE LEVEL 101 MEQ/L (98-107); CHOLESTEROL LEVEL 57 MG/DL (< 200); CPK CREATINE PHOSPHOKINASE 16 U/L (39-308); CREATININE FOR GFR 1.27 MG/DL (0.70-1.30); GLOMERULAR FILTRATION RATE 59.9 (>49); GLUCOSE, FASTING 201 MG/DL (70-100); LDH LACTATE DEHYDROGENASE 131 U/L (87-241); PHOSPHORUS LEVEL 3.9 MG/DL (2.5-4.9); SODIUM LEVEL 144 MEQ/L (136-145); TOTAL PROTEIN 7.4 GM/DL (6.4-8.2); TRIGLYCERIDES LEVEL 92 MG/DL (<150)
[2017-06-20 05:26] LABS: POTASSIUM SERUM 5.2 MEQ/L (3.5-5.1)
[2017-06-20] MEDS: KCL 10MEQ IN D5/0.45NS 1000ML 1,000 ML IV (05:47)
[2017-06-20] MEDS: oxyBUTYnin 5 MG TAB PO ×4 (06:00→21:17)
[2017-06-20] MEDS: LEVOTHYROXINE 75MCG TABLET (0.075MG) PO (06:28)
[2017-06-20] MEDS: HumaLOG INSULIN (NovoLOG) PER UNIT SC ×4 (07:30→21:00)
[2017-06-20] MEDS ORDERED: DEXTROSE 50% 50 ML SYRINGE IV (08:00)
[2017-06-20] MEDS ORDERED: GLUCOSE 4 GM CHEW TABLET PO (08:00)
[2017-06-20] MEDS ORDERED: SENNA SYRUP 15 ML UDC PEG (08:00)
[2017-06-20] MEDS: metFORMIN (GLUCOPHAGE) 1000 MG TABLET PO ×3 (08:00→17:21)
[2017-06-20] MEDS: IPRATROPIUM 0.5MG/ALBUTEROL 2.5MG INH SOL UD 3ML (DUONEB)(J7620) NEB ×4 (08:00→19:59)
[2017-06-20] MEDS ORDERED: GLUCAGON FOR INJ 1 MG VIAL (J1610) SC (08:00)
[2017-06-20] MEDS ORDERED: BACITRACIN OINT 30GM TOP (08:00)
[2017-06-20] MEDS: D5W/0.45% SODIUM CHLORIDE 1,000 ML IV (08:59)
[2017-06-20] MEDS: CHLORHEXIDINE ORAL RINSE 0.12%/15ML 120ML BOTTLE MT ×2 (09:00→21:17)
[2017-06-20] MEDS: VITAMIN D (CHOLECALCIFEROL) 400 INTERNATIONAL UNITS TAB PEG ×3 (09:00→21:17)
[2017-06-20] MEDS: OMEGA-3 1050MG CAPSULE PEG ×3 (09:00→21:17)
[2017-06-20] MEDS: MULTIVITAMINS CHILDREN'S CHEWABLE TABLET XX ×2 (09:00→10:34)
[2017-06-20] MEDS: LANSOPRAZOLE SUSPENSION 30 MG/10 ML ORAL SYRINGE (FIRST-LANSOPRAZOLE) GT (09:00)
[2017-06-20] MEDS: ALLOPURINOL 100 MG TAB PO ×3 (09:00→21:17)
[2017-06-20] MEDS: MAGNESIUM OXIDE 400 MG TAB (MAG-OX) PEG ×2 (09:00→10:36)
[2017-06-20] MEDS: ASCORBIC ACID 500 MG TAB PEG ×3 (09:00→21:17)
[2017-06-20] MEDS: CETIRIZINE (ZyrTEC) 10 MG TAB PO ×2 (09:00→10:34)
[2017-06-20] MEDS ORDERED: ASPIRIN 81 MG ENTERIC TAB PO (09:00)
[2017-06-20] MEDS: FOLIC ACID 1 MG TAB PEG ×2 (09:00→10:35)
[2017-06-20] MEDS: OMEPRAZOLE 20 MG CAP PO (09:00)
[2017-06-20] MEDS: FORMOTEROL FUMARATE 20 MCG/2 ML INHALATION SOLUTION (PERFOROMIST) INH ×2 (10:11→19:59)
[2017-06-20] MEDS: ASPIRIN 81 MG CHEW TABLET PEG (10:34)
[2017-06-20] MEDS: FLUTICASONE PROP 0.05% NASAL SPRAY 16 GM (FLONASE) (10:34)
[2017-06-20] MEDS: RILUZOLE 50 MG PO ×2 (10:35→23:07)
[2017-06-20] MEDS: FUROSEMIDE 20 MG TAB PO (10:35)
[2017-06-20] MEDS: GABAPENTIN 100 MG CAP PO ×3 (10:35→21:17)
[2017-06-20] MEDS: buPROPion 75 MG TAB PO (10:36)
[2017-06-20] MEDS: ATORVASTATIN 20 MG TAB PO (10:36)
[2017-06-20] MEDS: ACETAMINOPHEN TAB 650MG DOSE (2X325MG) PEG ×2 (13:07→21:18)
[2017-06-20] MEDS: BACLOFEN 10 MG TAB PO (21:17)
[2017-06-20] MEDS: TERAZOSIN 5 MG CAP PO (21:17)
[2017-06-21] MEDS: ALPRAZolam 0.5 MG TAB PO ×3 (00:23→19:26)
[2017-06-21] MEDS: ONDANSETRON 4 MG ORAL DISINTEGRATING TAB (S0181) PEG (00:47)
[2017-06-21] MEDS: D5W/0.45% SODIUM CHLORIDE 1,000 ML IV (03:36)
[2017-06-21 05:23] LABS: BASO % 0.3 % (0.0-1.0); EOS # 0.1 10^3/uL (0.0-0.50); EOS % 1.3 % (0.0-3.0); HEMATOCRIT 26.9 % (42.0-52.0); HEMOGLOBIN 8.1 g/dl (14.0-18.0); IMMATURE GRANULOCYTE % 4.2 % (0-3.0); LYMPH # 1.4 10^3/uL (1.5-4.5); LYMPH % 13.3 % (24.0-44.0); MEAN CORPUSCULAR HEMOGLOBIN 28.9 pg (27.0-33.0); MEAN CORPUSCULAR HGB CONC 30.1 g/dl (32.0-36.5); MEAN CORPUSCULAR VOLUME 96.1 fl (80.0-96.0); MONO # 0.7 10^3/uL (0.0-0.8); MONO % 6.5 % (0.0-5.0); NEUTROPHILS # 7.9 10^3/uL (1.8-7.7); NEUTROPHILS % 74.4 % (36.0-66.0); PLATELET COUNT, AUTOMATED 184 10^3/uL (150-450); RED CELL DISTRIBUTION WIDTH 14.8 % (11.5-14.5); WHITE BLOOD COUNT 10.6 10^3/uL (4.0-10.0)
[2017-06-21 05:56] LABS: ANION GAP 4 MEQ/L (8-16); BLOOD UREA NITROGEN 87 MG/DL (7-18); CALCIUM LEVEL 9.6 MG/DL (8.8-10.2); CARBON DIOXIDE LEVEL 36 MEQ/L (21-32); CHLORIDE LEVEL 103 MEQ/L (98-107); CREATININE FOR GFR 1.05 MG/DL (0.70-1.30); GLOMERULAR FILTRATION RATE > 60.0 (>49); GLUCOSE, FASTING 185 MG/DL (70-100); MAGNESIUM LEVEL 2.1 MG/DL (1.8-2.4); POTASSIUM SERUM 4.5 MEQ/L (3.5-5.1); SODIUM LEVEL 143 MEQ/L (136-145)
[2017-06-21] MEDS: LEVOTHYROXINE 75MCG TABLET (0.075MG) PO (06:18)
[2017-06-21] MEDS: oxyBUTYnin 5 MG TAB PO ×2 (06:18→14:14)
[2017-06-21] MEDS: IPRATROPIUM 0.5MG/ALBUTEROL 2.5MG INH SOL UD 3ML (DUONEB)(J7620) NEB ×3 (08:00→15:07)
[2017-06-21] MEDS: GABAPENTIN 100 MG CAP PO ×2 (08:05→16:11)
[2017-06-21] MEDS: ASPIRIN 81 MG CHEW TABLET PEG (08:05)
[2017-06-21] MEDS: VITAMIN D (CHOLECALCIFEROL) 400 INTERNATIONAL UNITS TAB PEG (08:05)
[2017-06-21] MEDS: MULTIVITAMINS CHILDREN'S CHEWABLE TABLET XX (08:06)
[2017-06-21] MEDS: ATORVASTATIN 20 MG TAB PO (08:06)
[2017-06-21] MEDS: buPROPion 75 MG TAB PO (08:06)
[2017-06-21] MEDS: metFORMIN (GLUCOPHAGE) 1000 MG TABLET PO ×2 (08:06→17:44)
[2017-06-21] MEDS: ASCORBIC ACID 500 MG TAB PEG (08:06)
[2017-06-21] MEDS: ALLOPURINOL 100 MG TAB PO (08:07)
[2017-06-21] MEDS: FOLIC ACID 1 MG TAB PEG (08:07)
[2017-06-21] MEDS: CETIRIZINE (ZyrTEC) 10 MG TAB PO (08:07)
[2017-06-21] MEDS: MAGNESIUM OXIDE 400 MG TAB (MAG-OX) PEG (08:07)
[2017-06-21] MEDS: OMEGA-3 1050MG CAPSULE PEG ×2 (08:07→09:00)
[2017-06-21] MEDS: FUROSEMIDE 20 MG TAB PO (08:07)
[2017-06-21] MEDS: HumaLOG INSULIN (NovoLOG) PER UNIT SC ×3 (08:08→17:45)
[2017-06-21] MEDS: LANSOPRAZOLE SUSPENSION 30 MG/10 ML ORAL SYRINGE (FIRST-LANSOPRAZOLE) GT (08:09)
[2017-06-21] MEDS: CHLORHEXIDINE ORAL RINSE 0.12%/15ML 120ML BOTTLE MT (08:09)
[2017-06-21] MEDS: FLUTICASONE PROP 0.05% NASAL SPRAY 16 GM (FLONASE) (08:09)
[2017-06-21] MEDS: FORMOTEROL FUMARATE 20 MCG/2 ML INHALATION SOLUTION (PERFOROMIST) INH ×2 (08:22→19:37)
[2017-06-21 08:58] LABS: BEDSIDE GLUCOSE 139 MG/DL (80-115)
[2017-06-21 08:59] LABS: BEDSIDE GLUCOSE 149 MG/DL (80-115)
[2017-06-21 09:02] LABS: BEDSIDE GLUCOSE 214 MG/DL (80-115)
[2017-06-21] MEDS: RILUZOLE 50 MG PO (10:41)
[2017-06-21 12:58] LABS: BEDSIDE GLUCOSE 160 MG/DL (80-115)
[2017-06-21] MEDS: ACETAMINOPHEN TAB 650MG DOSE (2X325MG) PEG (14:39)
[2017-06-21 17:43] LABS: BEDSIDE GLUCOSE 240 MG/DL (80-115)
== END 2017-06-21 20:14 | disposition short-term general hospital (02) | DRG 206 ==
LOC: M ED 02:31 → M ED INP 04:40 → M ICU 05:34
PROC: 0BJ08ZZ Inspection of Tracheobronchial Tree, Via Natural or Artificial Opening Endoscopic (ICD-10-PCS; principal; 2017-06-20)
DX: J95.09 Other tracheostomy complication (principal); G12.21 Amyotrophic lateral sclerosis; J96.10 Chronic respiratory failure, unspecified whether with hypoxia or hypercapnia; E11.9 Type 2 diabetes mellitus without complications; I25.10 Atherosclerotic heart disease of native coronary artery without angina pectoris; M10.9 Gout, unspecified; Z79.82 Long term (current) use of aspirin; Z79.899 Other long term (current) drug therapy; J44.9 Chronic obstructive pulmonary disease, unspecified; R33.8 Other retention of urine; Z87.891 Personal history of nicotine dependence

== ENCOUNTER 2017-07-27 13:28 | Inpatient (IN) | payer MEDICARE, OTHER ==
[2017-07-27] MEDS: NS 500 ML IV ×2 (13:45→15:00)
[2017-07-27 14:05] LABS: HEMATOCRIT 24.4 % (42.0-52.0); HEMOGLOBIN 7.3 g/dl (14.0-18.0); MEAN CORPUSCULAR HEMOGLOBIN 29.6 pg (27.0-33.0); MEAN CORPUSCULAR HGB CONC 29.9 g/dl (32.0-36.5); MEAN CORPUSCULAR VOLUME 98.8 fl (80.0-96.0); PLATELET COUNT, AUTOMATED 241 10^3/uL (150-450); RED BLOOD COUNT 2.47 10^6/uL (4.30-6.10); RED CELL DISTRIBUTION WIDTH 16.1 % (11.5-14.5); WHITE BLOOD COUNT 12.6 10^3/uL (4.0-10.0)
[2017-07-27 14:06] LABS: ADD MANUAL DIFFER YES; DIFF SLIDE NUMBER 254; POSITIVE MORPH POS FLAG
[2017-07-27 14:10] LABS: ABG BASE EXCESS 9.2 (-2.0-2.0); ABG O2 SATURATION 93.4 % (95.0-99.0); ABG PARTIAL PRESSURE CO2 48.9 mmHg (35.0-45.0); ABG PARTIAL PRESSURE O2 62.1 mmHg (75.0-100.0); ABG STANDARD HCO3 32.9 MEQ/L (22.0-26.0); ABG TOTAL CO2 35.5 MEQ/L (23.0-31.0); INTERNAL CONTROL NO RESULT
[2017-07-27 14:19] LABS: INR 1.13; PROTHROMBIN TIME 14.7 SECONDS (12.4-14.5)
[2017-07-27 14:20] LABS: PARTIAL THROMBOPLASTIN TIME 33.6 SECONDS (26.8-37.9)
[2017-07-27 14:26] LABS: ALBUMIN 1.6 GM/DL (3.2-5.2); ALBUMIN/GLOBULIN RATIO 0.31 (1.00-1.93); ALKALINE PHOSPHATASE 111 U/L (45-117); ALT/SGPT 10 U/L (12-78); ANION GAP 4 MEQ/L (8-16); AST/SGOT 10 U/L (7-37); BILIRUBIN,DIRECT < 0.1 MG/DL (0.0-0.2); BILIRUBIN,TOTAL 0.2 MG/DL (0.2-1.0); BLOOD UREA NITROGEN 86 MG/DL (7-18); CALCIUM LEVEL 10.1 MG/DL (8.8-10.2); CARBON DIOXIDE LEVEL 36 MEQ/L (21-32); CHLORIDE LEVEL 100 MEQ/L (98-107); CREATININE FOR GFR 1.85 MG/DL (0.70-1.30); GLOMERULAR FILTRATION RATE 38.8 (>49); GLUCOSE, FASTING 179 MG/DL (70-100); SODIUM LEVEL 140 MEQ/L (136-145); TOTAL PROTEIN 6.7 GM/DL (6.4-8.2)
[2017-07-27 14:30] LABS: BASOPHILS 1 % (0-4); LYMPHOCYTES 11 % (16-52); MONOCYTES 2 % (0-8); NEUTROPHILS 86 % (35-75)
[2017-07-27 14:31] LABS: ANISOCYTOSIS 2+; HYPOCHROMASIA 2+; PLATELET ESTIMATE NORMAL (NORMAL)
[2017-07-27 14:40] LABS: POTASSIUM SERUM 5.6 MEQ/L (3.5-5.1)
[2017-07-27 14:44] LABS: LACTIC ACID SEPSIS PROTOCOL 4.6 MMOL/L (0.4-2.0)
[2017-07-27 14:46] LABS: INFLUENZA A AMPLIFICATION NEGATIVE (NEGATIVE); INFLUENZA B AMPLIFICATION NEGATIVE (NEGATIVE)
[2017-07-27 15:16] LABS: APPEARANCE, URINE HAZY (CLEAR); BACTERIA, URINE AUTO 1+ (NEGATIVE); BILIRUBIN, URINE AUTO NEGATIVE (NEGATIVE); BLOOD, URINE BLOOD NEGATIVE (NEGATIVE); CALCIUM OXALATE CRYSTALS SMALL; COLOR, URINE YELLOW (YELLOW); GLUCOSE, URINE (UA) AUTO NEGATIVE (NEGATIVE); KETONE, URINE AUTO NEGATIVE (NEGATIVE); LEUKOCYTE ESTERASE, URINE AUTO 3+ (NEGATIVE); NITRITE, URINE AUTO NEGATIVE (NEGATIVE); PROTEIN, URINE AUTO 1+ mg/dL (NEGATIVE); RBC, URINE AUTO 17 /HPF (0-3); SPECIFIC GRAVITY URINE AUTO 1.015 (1.002-1.035); SQUAMOUS EPITHELIAL CELL UR AU 0 /HPF (0-6); UROBILINOGEN, URINE AUTO 0.2 mg/dL (0.0-2.0); WBC, URINE AUTO 98 /HPF (0-3); YEAST LIKE CELL URINE AUTO SMALL
[2017-07-27] MEDS: PIPERACILLIN/TAZOBACTAM SOD 3.375 GM in APPROPRIATE DILUENT 1 EA IV (17:16)
[2017-07-27] MEDS ORDERED: SENNA SYRUP 15 ML UDC PEG (18:30)
[2017-07-27] MEDS ORDERED: MICONAZOLE TOPICAL 2% CREAM 15GM TOP (18:30)
[2017-07-27] MEDS ORDERED: ONDANSETRON 4 MG ORAL DISINTEGRATING TAB (Q0162 PER 1MG) PEG (18:30)
[2017-07-27] MEDS ORDERED: ACETAMINOPHEN SUSP DYE FREE 160 MG/5 ML UDC PEG (18:30)
[2017-07-27] MEDS ORDERED: BACITRACIN OINT 30GM TOP (18:30)
[2017-07-27] MEDS ORDERED: DEXTROSE 50% 50 ML SYRINGE IV (18:45)
[2017-07-27] MEDS ORDERED: GLUCAGON FOR INJ 1 MG VIAL (J1610) SC (18:45)
[2017-07-27] MEDS ORDERED: GLUCOSE 4 GM CHEW TABLET PO (18:45)
[2017-07-27] MEDS: DILUENT IV (19:15)
[2017-07-27] MEDS: NS IV (19:15)
[2017-07-27 20:32] LABS: IMMEDIATE SPIN CROSSMATCH 1 1
[2017-07-27 20:36] LABS: HEMATOCRIT 23.9 % (42.0-52.0); HEMOGLOBIN 7.1 g/dl (14.0-18.0); RETIC HEMOGLOBIN EQUIVALENT 25.1 pg (24-36); RETICULOCYTE # 66.6 10^9/L (17-77); RETICULOCYTE % 2.8 % (0.5-1.5)
[2017-07-27 21:08] LABS: LACTIC ACID SEPSIS PROTOCOL 3.6 MMOL/L (0.4-2.0)
[2017-07-27] MEDS: SOD POLYSTYRENE SULFONATE SUSP 15 GM/60 ML UD PEG (21:15)
[2017-07-27 21:16] LABS: VITAMIN B12 LEVEL 794 PG/ML (247-911)
[2017-07-27] MEDS: TERAZOSIN 5 MG CAP PEG (21:21)
[2017-07-27 21:22] LABS: IRON (FE) 19 UG/DL (65-175); PERCENT SATURATION 13.9 % (19.7-50.0); TOTAL IRON BINDING CAPACITY 137 UG/DL (250-450)
[2017-07-27] MEDS: NS 1,000 ML IV (21:23)
[2017-07-27 21:26] LABS: FERRITIN 2585 NG/ML (26-388)
[2017-07-27] MEDS: IPRATROPIUM 0.5MG/ALBUTEROL 2.5MG INH SOL UD 3ML (DUONEB)(J7620) NEB (21:31)
[2017-07-27] MEDS: BACLOFEN 10 MG TAB PEG (21:44)
[2017-07-27] MEDS: ATORVASTATIN 20 MG TAB PEG (21:44)
[2017-07-27] MEDS: VITAMIN D (CHOLECALCIFEROL) 400 INTERNATIONAL UNITS TAB PEG (21:44)
[2017-07-27] MEDS: oxyBUTYnin 5 MG TAB PO (21:44)
[2017-07-27] MEDS: ALPRAZolam 0.5 MG TAB PEG (21:44)
[2017-07-27] MEDS: ALLOPURINOL 100 MG TAB PEG (21:44)
[2017-07-27] MEDS: GABAPENTIN 100 MG CAP PEG (21:44)
[2017-07-27] MEDS: FERROUS SULFATE 300MG/5ML UDC LIQUID PEG (21:44)
[2017-07-27] MEDS: ASCORBIC ACID 500 MG TAB PEG (21:45)
[2017-07-27] MEDS: HumaLOG INSULIN (NovoLOG) PER UNIT SC (21:45)
[2017-07-27] MEDS ORDERED: PILL CRUSHER/CUTTER 1 EACH XX (21:45)
[2017-07-27 22:13] LABS: BEDSIDE GLUCOSE 198 MG/DL (80-115)
[2017-07-28 00:37] LABS: HEMATOCRIT 27.2 % (42.0-52.0); HEMOGLOBIN 8.3 g/dl (14.0-18.0)
[2017-07-28 00:47] LABS: ANION GAP 4 MEQ/L (8-16); BLOOD UREA NITROGEN 89 MG/DL (7-18); CALCIUM LEVEL 9.3 MG/DL (8.8-10.2); CARBON DIOXIDE LEVEL 36 MEQ/L (21-32); CHLORIDE LEVEL 104 MEQ/L (98-107); CREATININE FOR GFR 1.68 MG/DL (0.70-1.30); GLOMERULAR FILTRATION RATE 43.3 (>49); GLUCOSE, FASTING 126 MG/DL (70-100); SODIUM LEVEL 144 MEQ/L (136-145)
[2017-07-28 00:51] LABS: POTASSIUM SERUM 5.5 MEQ/L (3.5-5.1)
[2017-07-28] MEDS: NS 1,000 ML IV ×4 (02:36→18:16)
[2017-07-28] MEDS: ACETAMINOPHEN TAB 650MG DOSE (2X325MG) PEG ×2 (04:08→20:55)
[2017-07-28] MEDS: LEVOTHYROXINE 75MCG TABLET (0.075MG) PEG (05:31)
[2017-07-28] MEDS: NORCO, ANEXSIA 5/325MG TABLET (HYDROcodone/ACETAMINOPHEN) PEG (05:32)
[2017-07-28] MEDS: oxyBUTYnin 5 MG TAB PO ×3 (05:33→20:56)
[2017-07-28 06:42] LABS: BASO # 0.1 10^3/uL (0.0-0.2); BASO % 0.4 % (0.0-1.0); EOS # 0.1 10^3/uL (0.0-0.50); EOS % 0.6 % (0.0-3.0); HEMATOCRIT 24.5 % (42.0-52.0); HEMOGLOBIN 7.5 g/dl (14.0-18.0); IMMATURE GRANULOCYTE % 2.4 % (0-3.0); LYMPH # 1.1 10^3/uL (1.5-4.5); MEAN CORPUSCULAR HEMOGLOBIN 29.5 pg (27.0-33.0); MEAN CORPUSCULAR HGB CONC 30.6 g/dl (32.0-36.5); MEAN CORPUSCULAR VOLUME 96.5 fl (80.0-96.0); MONO # 1.2 10^3/uL (0.0-0.8); MONO % 8.4 % (0.0-5.0); NEUTROPHILS # 11.4 10^3/uL (1.8-7.7); NEUTROPHILS % 80.2 % (36.0-66.0); PLATELET COUNT, AUTOMATED 220 10^3/uL (150-450); RED BLOOD COUNT 2.54 10^6/uL (4.30-6.10); RED CELL DISTRIBUTION WIDTH 16.7 % (11.5-14.5); WHITE BLOOD COUNT 14.2 10^3/uL (4.0-10.0)
[2017-07-28 06:55] LABS: LACTIC ACID SEPSIS PROTOCOL 0.9 MMOL/L (0.4-2.0)
[2017-07-28] MEDS: IPRATROPIUM 0.5MG/ALBUTEROL 2.5MG INH SOL UD 3ML (DUONEB)(J7620) NEB ×4 (08:00→23:56)
[2017-07-28] MEDS: SOD POLYSTYRENE SULFONATE SUSP 15 GM/60 ML UD PO (08:43)
[2017-07-28] MEDS: FERROUS SULFATE 300MG/5ML UDC LIQUID PEG ×2 (08:44→20:54)
[2017-07-28] MEDS: HumaLOG INSULIN (NovoLOG) PER UNIT SC ×4 (08:44→21:52)
[2017-07-28] MEDS: GABAPENTIN 100 MG CAP PEG ×3 (08:45→20:56)
[2017-07-28] MEDS: ALLOPURINOL 100 MG TAB PEG ×2 (08:46→20:56)
[2017-07-28] MEDS: VITAMIN D (CHOLECALCIFEROL) 400 INTERNATIONAL UNITS TAB PEG (08:46)
[2017-07-28] MEDS: buPROPion 75 MG TAB PEG (08:46)
[2017-07-28] MEDS: CETIRIZINE (ZyrTEC) 10 MG TAB PEG (08:47)
[2017-07-28] MEDS: FLUTICASONE PROP 0.05% NASAL SPRAY 16 GM (FLONASE) (08:47)
[2017-07-28] MEDS: VANCOMYCIN HCL 1,000 MG, VIAL MATE ADAPTER 1 EACH in D5W 250 ML IV ×2 (08:48→20:54)
[2017-07-28 08:52] LABS: IMMEDIATE SPIN CROSSMATCH 1 2
[2017-07-28] MEDS: ASCORBIC ACID 500 MG TAB PEG ×2 (08:53→20:56)
[2017-07-28 12:14] LABS: HEMATOCRIT 26.3 % (42.0-52.0); HEMOGLOBIN 8.2 g/dl (13.5-17.5)
[2017-07-28 12:26] LABS: REASON FOR REVIEW ANEMIA / RBC MORPH; SLIDE REVIEW Report; SOURCE PERIPHERAL SMEAR
[2017-07-28 12:52] LABS: ANION GAP 5 MEQ/L (8-16); BLOOD UREA NITROGEN 76 MG/DL (7-18); CARBON DIOXIDE LEVEL 32 MEQ/L (21-32); CHLORIDE LEVEL 110 MEQ/L (98-107); CREATININE FOR GFR 1.56 MG/DL (0.70-1.30); GLOMERULAR FILTRATION RATE 47.2 (>49); GLUCOSE, FASTING 147 MG/DL (70-100); MAGNESIUM LEVEL 2.2 MG/DL (1.8-2.4); POTASSIUM SERUM 4.5 MEQ/L (3.5-5.1); SODIUM LEVEL 147 MEQ/L (136-145)
[2017-07-28 12:57] LABS: CPK CREATINE PHOSPHOKINASE 11 U/L (39-308)
[2017-07-28 12:57] LABS: ALBUMIN 1.5 GM/DL (3.2-5.2); ANION GAP 5 MEQ/L (8-16); BLOOD UREA NITROGEN 77 MG/DL (7-18); CALCIUM LEVEL 8.8 MG/DL (8.8-10.2); CARBON DIOXIDE LEVEL 31 MEQ/L (21-32); CHLORIDE LEVEL 111 MEQ/L (98-107); CREATININE FOR GFR 1.58 MG/DL (0.70-1.30); GLOMERULAR FILTRATION RATE 46.5 (>49); GLUCOSE, FASTING 150 MG/DL (70-100); PHOSPHORUS LEVEL 1.6 MG/DL (2.5-4.9); POTASSIUM SERUM 4.6 MEQ/L (3.5-5.1); SODIUM LEVEL 147 MEQ/L (136-145)
[2017-07-28 13:13] LABS: TOTAL 25(OH) VITAMIN D 34.6 NG/ML (30.0-100.0)
[2017-07-28 13:34] LABS: BEDSIDE GLUCOSE 158 MG/DL (80-115)
[2017-07-28] MEDS: PANTOPRAZOLE 40MG INJ (PROTONIX) (C9113) IV (13:36)
[2017-07-28 14:53] LABS: HEMATOCRIT 28.2 % (42.0-52.0); HEMOGLOBIN 8.5 g/dl (13.5-17.5)
[2017-07-28 17:08] LABS: BEDSIDE GLUCOSE 114 MG/DL (80-115)
[2017-07-28] MEDS: VANCOMYCIN HCL 750 MG, VIAL MATE ADAPTER 1 EACH in D5W 250 ML IV (19:24)
[2017-07-28] MEDS: SOD POLYSTYRENE SULFONATE SUSP 15 GM/60 ML UD PEG (19:25)
[2017-07-28] MEDS: BACLOFEN 10 MG TAB PEG (20:56)
[2017-07-28] MEDS: ALPRAZolam 0.5 MG TAB PEG (20:56)
[2017-07-28 21:05] LABS: HEMATOCRIT 27.9 % (42.0-52.0); HEMOGLOBIN 8.5 g/dl (13.5-17.5)
[2017-07-28 21:56] LABS: BEDSIDE GLUCOSE 202 MG/DL (80-115)
[2017-07-28] MEDS: PIPERACILLIN/TAZOBACTAM SOD 3.375 GM in APPROPRIATE DILUENT 1 EA IV (23:34)
[2017-07-29] MEDS: NS 1,000 ML IV ×3 (03:56→21:44)
[2017-07-29 05:00] LABS: HEMATOCRIT 27.5 % (42.0-52.0); HEMOGLOBIN 8.4 g/dl (13.5-17.5)
[2017-07-29] MEDS: PIPERACILLIN/TAZOBACTAM SOD 3.375 GM in APPROPRIATE DILUENT 1 EA IV ×4 (06:27→23:47)
[2017-07-29] MEDS: oxyBUTYnin 5 MG TAB PO ×3 (06:27→21:46)
[2017-07-29] MEDS: LEVOTHYROXINE 75MCG TABLET (0.075MG) PEG (06:27)
[2017-07-29] MEDS: IPRATROPIUM 0.5MG/ALBUTEROL 2.5MG INH SOL UD 3ML (DUONEB)(J7620) NEB ×4 (07:27→23:29)
[2017-07-29 08:33] LABS: BEDSIDE GLUCOSE 250 MG/DL (80-115)
[2017-07-29] MEDS: PANTOPRAZOLE 40MG INJ (PROTONIX) (C9113) IV (08:35)
[2017-07-29] MEDS: FERROUS SULFATE 300MG/5ML UDC LIQUID PEG ×2 (08:35→21:46)
[2017-07-29] MEDS: HumaLOG INSULIN (NovoLOG) PER UNIT SC ×4 (08:35→21:45)
[2017-07-29] MEDS: buPROPion 75 MG TAB PEG (08:36)
[2017-07-29] MEDS: GABAPENTIN 100 MG CAP PEG ×3 (08:36→21:45)
[2017-07-29] MEDS: ALLOPURINOL 100 MG TAB PEG ×2 (08:36→21:46)
[2017-07-29] MEDS: CETIRIZINE (ZyrTEC) 10 MG TAB PEG (08:36)
[2017-07-29] MEDS: FLUTICASONE PROP 0.05% NASAL SPRAY 16 GM (FLONASE) (08:37)
[2017-07-29 09:31] LABS: HEMATOCRIT 29.8 % (42.0-52.0); HEMOGLOBIN 9.1 g/dl (13.5-17.5); MEAN CORPUSCULAR HEMOGLOBIN 29.4 pg (27.0-33.0); MEAN CORPUSCULAR HGB CONC 30.5 g/dl (32.0-36.5); MEAN CORPUSCULAR VOLUME 96.4 fl (80.0-96.0); PLATELET COUNT, AUTOMATED 239 10^3/uL (150-450); RED BLOOD COUNT 3.09 10^6/uL (4.30-6.10); RED CELL DISTRIBUTION WIDTH 16.7 % (11.5-14.5); WHITE BLOOD COUNT 12.9 10^3/uL (4.0-10.0)
[2017-07-29 10:01] LABS: CORTISOL AM 18.9 UG/DL (4.3-22.4)
[2017-07-29] MEDS: ASCORBIC ACID 500 MG TAB PEG ×2 (10:04→21:46)
[2017-07-29 10:05] LABS: ALBUMIN 1.5 GM/DL (3.2-5.2); ALBUMIN/GLOBULIN RATIO 0.37 (1.00-1.93); ALKALINE PHOSPHATASE 120 U/L (45-117); ALT/SGPT 10 U/L (12-78); ANION GAP 6 MEQ/L (8-16); AST/SGOT 14 U/L (7-37); BILIRUBIN,TOTAL 0.3 MG/DL (0.2-1.0); BLOOD UREA NITROGEN 63 MG/DL (7-18); CALCIUM LEVEL 8.7 MG/DL (8.8-10.2); CARBON DIOXIDE LEVEL 31 MEQ/L (21-32); CHLORIDE LEVEL 112 MEQ/L (98-107); CREATININE FOR GFR 1.44 MG/DL (0.70-1.30); GLOMERULAR FILTRATION RATE 51.8 (>49); GLUCOSE, FASTING 244 MG/DL (70-100); POTASSIUM SERUM 3.5 MEQ/L (3.5-5.1); SODIUM LEVEL 149 MEQ/L (136-145); TOTAL PROTEIN 5.6 GM/DL (6.4-8.2)
[2017-07-29] MEDS: ACETAMINOPHEN 325 MG/10.15 ML UDC GT ×2 (10:51→21:46)
[2017-07-29 12:27] LABS: BEDSIDE GLUCOSE 237 MG/DL (80-115)
[2017-07-29] MEDS: VANCOMYCIN HCL 1,000 MG, VIAL MATE ADAPTER 1 EACH in D5W 250 ML IV (14:23)
[2017-07-29 15:05] LABS: HEMATOCRIT 29.1 % (42.0-52.0); HEMOGLOBIN 8.9 g/dl (13.5-17.5)
[2017-07-29 17:39] LABS: BEDSIDE GLUCOSE 296 MG/DL (80-115)
[2017-07-29] MEDS ORDERED: hydrALAZINE INJ 20 MG/ML VIAL IV (18:45)
[2017-07-29 21:01] LABS: BEDSIDE GLUCOSE 277 MG/DL (80-115)
[2017-07-29 21:15] LABS: HEMATOCRIT 28.7 % (42.0-52.0); HEMOGLOBIN 8.6 g/dl (13.5-17.5)
[2017-07-29] MEDS: ALPRAZolam 0.5 MG TAB PEG (21:46)
[2017-07-29] MEDS: BACLOFEN 10 MG TAB PEG (21:46)
[2017-07-30 03:50] LABS: HEMATOCRIT 26.6 % (42.0-52.0); HEMOGLOBIN 8.1 g/dl (13.5-17.5); MEAN CORPUSCULAR HEMOGLOBIN 29.3 pg (27.0-33.0); MEAN CORPUSCULAR HGB CONC 30.5 g/dl (32.0-36.5); MEAN CORPUSCULAR VOLUME 96.4 fl (80.0-96.0); PLATELET COUNT, AUTOMATED 241 10^3/uL (150-450); RED BLOOD COUNT 2.76 10^6/uL (4.30-6.10); RED CELL DISTRIBUTION WIDTH 16.3 % (11.5-14.5); WHITE BLOOD COUNT 10.7 10^3/uL (4.0-10.0)
[2017-07-30 04:04] LABS: ANION GAP 7 MEQ/L (8-16); BLOOD UREA NITROGEN 55 MG/DL (7-18); CALCIUM LEVEL 9.3 MG/DL (8.8-10.2); CARBON DIOXIDE LEVEL 29 MEQ/L (21-32); CHLORIDE LEVEL 114 MEQ/L (98-107); GLOMERULAR FILTRATION RATE > 60.0 (>49); GLUCOSE, FASTING 276 MG/DL (70-100); POTASSIUM SERUM 3.2 MEQ/L (3.5-5.1); SODIUM LEVEL 150 MEQ/L (136-145)
[2017-07-30] MEDS: PIPERACILLIN/TAZOBACTAM SOD 3.375 GM in APPROPRIATE DILUENT 1 EA IV ×4 (04:57→22:33)
[2017-07-30] MEDS: oxyBUTYnin 5 MG TAB PO ×3 (06:28→21:30)
[2017-07-30] MEDS: LEVOTHYROXINE 75MCG TABLET (0.075MG) PEG (06:28)
[2017-07-30 07:34] LABS: VANCOMYCIN LEVEL TROUGH 22.6 UG/ML (10.0-20.0)
[2017-07-30] MEDS: HumaLOG INSULIN (NovoLOG) PER UNIT SC ×4 (07:56→20:30)
[2017-07-30] MEDS: VANCOMYCIN HCL 1,000 MG, VIAL MATE ADAPTER 1 EACH in D5W 250 ML IV (08:15)
[2017-07-30] MEDS: D5W 1,000 ML IV (08:24)
[2017-07-30] MEDS: IPRATROPIUM 0.5MG/ALBUTEROL 2.5MG INH SOL UD 3ML (DUONEB)(J7620) NEB ×3 (08:29→23:41)
[2017-07-30 09:18] LABS: HEMOGLOBIN 8.8 g/dl (13.5-17.5)
[2017-07-30] MEDS: FERROUS SULFATE 300MG/5ML UDC LIQUID PEG ×2 (09:28→21:29)
[2017-07-30] MEDS: GABAPENTIN 100 MG CAP PEG ×3 (09:28→21:29)
[2017-07-30] MEDS: FLUTICASONE PROP 0.05% NASAL SPRAY 16 GM (FLONASE) (09:29)
[2017-07-30] MEDS: PANTOPRAZOLE 40MG INJ (PROTONIX) (C9113) IV (09:29)
[2017-07-30] MEDS: ALLOPURINOL 100 MG TAB PEG ×2 (09:29→21:29)
[2017-07-30] MEDS: CETIRIZINE (ZyrTEC) 10 MG TAB PEG (09:29)
[2017-07-30] MEDS: buPROPion 75 MG TAB PEG (09:29)
[2017-07-30] MEDS: ASCORBIC ACID 500 MG TAB PEG ×2 (09:29→21:30)
[2017-07-30] MEDS: POTASSIUM CHLORIDE 10% LIQ 20 MEQ/15 ML UDC PO ×2 (09:30→11:18)
[2017-07-30] MEDS: ACETAMINOPHEN 325 MG/10.15 ML UDC GT ×2 (09:52→21:29)
[2017-07-30] MEDS ORDERED: VANCOMYCIN HCL 1,000 MG, VIAL MATE ADAPTER 1 EACH in D5W 250 ML IV (12:00)
[2017-07-30 12:08] LABS: BEDSIDE GLUCOSE 311 MG/DL (80-115)
[2017-07-30] MEDS: D5W IV (12:10)
[2017-07-30] MEDS: TOBRAMYCIN SULF IV (12:10)
[2017-07-30] MEDS: ALPRAZolam 0.5 MG TAB PEG ×2 (12:11→21:29)
[2017-07-30 14:19] LABS: LEGIONELLA ANTIGEN URINE Negative (Negative)
[2017-07-30 15:20] LABS: HEMATOCRIT 32.5 % (42.0-52.0); HEMOGLOBIN 9.7 g/dl (13.5-17.5)
[2017-07-30 17:11] LABS: BEDSIDE GLUCOSE 386 MG/DL (80-115)
[2017-07-30 18:43] LABS: ANION GAP 5 MEQ/L (8-16); BLOOD UREA NITROGEN 47 MG/DL (7-18); CARBON DIOXIDE LEVEL 29 MEQ/L (21-32); CHLORIDE LEVEL 114 MEQ/L (98-107); CREATININE FOR GFR 1.24 MG/DL (0.70-1.30); GLOMERULAR FILTRATION RATE > 60.0 (>49); GLUCOSE, FASTING 382 MG/DL (70-100); POTASSIUM SERUM 4.4 MEQ/L (3.5-5.1); SODIUM LEVEL 148 MEQ/L (136-145)
[2017-07-30 21:15] LABS: HEMATOCRIT 28.9 % (42.0-52.0); HEMOGLOBIN 8.6 g/dl (13.5-17.5)
[2017-07-30] MEDS: BACLOFEN 10 MG TAB PEG (21:30)
[2017-07-31] MEDS: D5W 1,000 ML IV (00:36)
[2017-07-31] MEDS: HumaLOG INSULIN (NovoLOG) PER UNIT SC ×4 (00:36→18:27)
[2017-07-31 00:38] LABS: BEDSIDE GLUCOSE 410 MG/DL (80-115)
[2017-07-31] MEDS: PIPERACILLIN/TAZOBACTAM SOD 3.375 GM in APPROPRIATE DILUENT 1 EA IV ×4 (04:27→22:55)
[2017-07-31 05:12] LABS: HEMATOCRIT 26.6 % (42.0-52.0); HEMOGLOBIN 8.1 g/dl (13.5-17.5); MEAN CORPUSCULAR HGB CONC 30.5 g/dl (32.0-36.5); MEAN CORPUSCULAR VOLUME 95.3 fl (80.0-96.0); PLATELET COUNT, AUTOMATED 236 10^3/uL (150-450); RED BLOOD COUNT 2.79 10^6/uL (4.30-6.10); RED CELL DISTRIBUTION WIDTH 15.9 % (11.5-14.5); WHITE BLOOD COUNT 10.2 10^3/uL (4.0-10.0)
[2017-07-31 05:30] LABS: ANION GAP 5 MEQ/L (8-16); BLOOD UREA NITROGEN 46 MG/DL (7-18); CALCIUM LEVEL 9.2 MG/DL (8.8-10.2); CARBON DIOXIDE LEVEL 29 MEQ/L (21-32); CHLORIDE LEVEL 111 MEQ/L (98-107); CREATININE FOR GFR 1.31 MG/DL (0.70-1.30); GLOMERULAR FILTRATION RATE 57.8 (>49); POTASSIUM SERUM 4.5 MEQ/L (3.5-5.1); SODIUM LEVEL 145 MEQ/L (136-145); TOBRAMYCIN LEVEL TROUGH 1.3 MCG/ML (0.0-2.0)
[2017-07-31 05:45] LABS: GLUCOSE, FASTING 436 MG/DL (70-100)
[2017-07-31 05:53] LABS: BEDSIDE GLUCOSE 409 MG/DL (80-115)
[2017-07-31] MEDS: oxyBUTYnin 5 MG TAB PO ×3 (06:05→21:18)
[2017-07-31] MEDS: LEVOTHYROXINE 75MCG TABLET (0.075MG) PEG (06:05)
[2017-07-31] MEDS: D5W IV (06:06)
[2017-07-31] MEDS: TOBRAMYCIN SULF IV (06:06)
[2017-07-31 07:48] LABS: TOBRAMYCIN LEVEL PEAK 7.2 MCG/ML (3.0-10.0)
[2017-07-31] MEDS: PANTOPRAZOLE 40MG INJ (PROTONIX) (C9113) IV (08:47)
[2017-07-31] MEDS: buPROPion 75 MG TAB PEG (08:49)
[2017-07-31] MEDS: ALLOPURINOL 100 MG TAB PEG ×2 (08:49→21:18)
[2017-07-31] MEDS: METOPROLOL TART 12.5 MG PER 1/2 TAB PEG ×2 (08:49→21:22)
[2017-07-31] MEDS: ASCORBIC ACID 500 MG TAB PEG ×2 (08:50→21:18)
[2017-07-31] MEDS: FUROSEMIDE 20 MG TAB PEG (08:50)
[2017-07-31] MEDS: GABAPENTIN 100 MG CAP PEG ×3 (08:50→21:19)
[2017-07-31] MEDS: CETIRIZINE (ZyrTEC) 10 MG TAB PEG (08:51)
[2017-07-31] MEDS: FLUTICASONE PROP 0.05% NASAL SPRAY 16 GM (FLONASE) (08:51)
[2017-07-31] MEDS: FERROUS SULFATE 300MG/5ML UDC LIQUID PEG ×2 (08:55→21:18)
[2017-07-31] MEDS: IPRATROPIUM 0.5MG/ALBUTEROL 2.5MG INH SOL UD 3ML (DUONEB)(J7620) NEB ×3 (09:10→23:10)
[2017-07-31 09:45] LABS: BEDSIDE GLUCOSE 346 MG/DL (80-115)
[2017-07-31 10:56] LABS: HEMATOCRIT 30.3 % (42.0-52.0)
[2017-07-31 11:53] LABS: BEDSIDE GLUCOSE 339 MG/DL (80-115)
[2017-07-31] MEDS: ACETAMINOPHEN 325 MG/10.15 ML UDC GT ×2 (12:56→18:44)
[2017-07-31] MEDS: hydrOXYzine 10MG/5ML SYRUP PO (14:40)
[2017-07-31 16:59] LABS: BEDSIDE GLUCOSE 311 MG/DL (80-115)
[2017-07-31 17:30] LABS: HEMATOCRIT 30.4 % (42.0-52.0); HEMOGLOBIN 9.1 g/dl (13.5-17.5)
[2017-07-31] MEDS: BACLOFEN 10 MG TAB PEG (21:18)
[2017-07-31] MEDS: ALPRAZolam 0.5 MG TAB PEG (21:19)
[2017-07-31] MEDS: LEVEMIR (INSULIN DETEMIR) 1 UNITS/0.01ML SC (21:20)
[2017-07-31 23:17] LABS: HEMATOCRIT 32.2 % (42.0-52.0); HEMOGLOBIN 9.6 g/dl (13.5-17.5)
[2017-07-31 23:47] LABS: BEDSIDE GLUCOSE 344 MG/DL (80-115)
[2017-08-01] MEDS: HumaLOG INSULIN (NovoLOG) PER UNIT SC ×5 (00:11→23:20)
[2017-08-01] MEDS: hydrALAZINE INJ 20 MG/ML VIAL IV ×2 (02:34→03:23)
[2017-08-01] MEDS: ISOSORBIDE DIN (ISORDIL) 10 MG TAB PO (03:26)
[2017-08-01] MEDS: ALPRAZolam 0.5 MG TAB PEG ×2 (04:16→20:45)
[2017-08-01] MEDS: PIPERACILLIN/TAZOBACTAM SOD 3.375 GM in APPROPRIATE DILUENT 1 EA IV ×4 (04:17→23:21)
[2017-08-01 04:38] LABS: HEMATOCRIT 34.1 % (42.0-52.0); HEMOGLOBIN 10.1 g/dl (13.5-17.5); MEAN CORPUSCULAR HEMOGLOBIN 28.7 pg (27.0-33.0); MEAN CORPUSCULAR HGB CONC 29.6 g/dl (32.0-36.5); MEAN CORPUSCULAR VOLUME 96.9 fl (80.0-96.0); PLATELET COUNT, AUTOMATED 273 10^3/uL (150-450); RED BLOOD COUNT 3.52 10^6/uL (4.30-6.10); RED CELL DISTRIBUTION WIDTH 15.6 % (11.5-14.5); WHITE BLOOD COUNT 19.2 10^3/uL (4.0-10.0)
[2017-08-01 04:56] LABS: ANION GAP 7 MEQ/L (8-16); BLOOD UREA NITROGEN 43 MG/DL (7-18); CALCIUM LEVEL 9.5 MG/DL (8.8-10.2); CARBON DIOXIDE LEVEL 29 MEQ/L (21-32); CHLORIDE LEVEL 107 MEQ/L (98-107); CREATININE FOR GFR 1.14 MG/DL (0.70-1.30); GLOMERULAR FILTRATION RATE > 60.0 (>49); GLUCOSE, FASTING 297 MG/DL (70-100); POTASSIUM SERUM 4.6 MEQ/L (3.5-5.1); SODIUM LEVEL 143 MEQ/L (136-145)
[2017-08-01] MEDS: oxyBUTYnin 5 MG TAB PO ×3 (05:47→20:45)
[2017-08-01] MEDS: LEVOTHYROXINE 75MCG TABLET (0.075MG) PEG (05:48)
[2017-08-01] MEDS: TOBRAMYCIN SULF IV (05:49)
[2017-08-01] MEDS: D5W IV (05:49)
[2017-08-01] MEDS: IPRATROPIUM 0.5MG/ALBUTEROL 2.5MG INH SOL UD 3ML (DUONEB)(J7620) NEB ×3 (07:38→23:32)
[2017-08-01] MEDS: FERROUS SULFATE 300MG/5ML UDC LIQUID PEG ×2 (08:04→20:47)
[2017-08-01] MEDS: METOPROLOL TART 12.5 MG PER 1/2 TAB PEG ×2 (08:05→20:47)
[2017-08-01] MEDS: ASCORBIC ACID 500 MG TAB PEG ×2 (08:05→20:45)
[2017-08-01] MEDS: PANTOPRAZOLE 40MG INJ (PROTONIX) (C9113) IV (08:05)
[2017-08-01] MEDS: GABAPENTIN 100 MG CAP PEG ×3 (08:05→20:48)
[2017-08-01] MEDS: FLUTICASONE PROP 0.05% NASAL SPRAY 16 GM (FLONASE) (08:06)
[2017-08-01] MEDS: CETIRIZINE (ZyrTEC) 10 MG TAB PEG (08:06)
[2017-08-01] MEDS: buPROPion 75 MG TAB PEG (08:06)
[2017-08-01] MEDS: ALLOPURINOL 100 MG TAB PEG ×2 (08:06→20:46)
[2017-08-01] MEDS: FUROSEMIDE 20 MG TAB PEG (08:06)
[2017-08-01] MEDS: BISACODYL 10 MG SUPP PR (11:43)
[2017-08-01 11:59] LABS: BEDSIDE GLUCOSE 376 MG/DL (80-115)
[2017-08-01] MEDS: ISOSORBIDE DIN (ISORDIL) 10 MG TAB PEG ×2 (13:04→20:46)
[2017-08-01] MEDS: NORCO, ANEXSIA 5/325MG TABLET (HYDROcodone/ACETAMINOPHEN) PEG (16:38)
[2017-08-01 18:01] LABS: BEDSIDE GLUCOSE 322 MG/DL (80-115)
[2017-08-01] MEDS: BACLOFEN 10 MG TAB PEG (20:45)
[2017-08-01] MEDS: LEVEMIR (INSULIN DETEMIR) 1 UNITS/0.01ML SC (20:47)
[2017-08-01 23:26] LABS: BEDSIDE GLUCOSE 304 MG/DL (80-115)
[2017-08-02] MEDS: PIPERACILLIN/TAZOBACTAM SOD 3.375 GM in APPROPRIATE DILUENT 1 EA IV ×4 (04:12→22:46)
[2017-08-02 04:58] LABS: HEMATOCRIT 29.1 % (42.0-52.0); HEMOGLOBIN 8.8 g/dl (13.5-17.5); MEAN CORPUSCULAR HGB CONC 30.2 g/dl (32.0-36.5); PLATELET COUNT, AUTOMATED 229 10^3/uL (150-450); RED BLOOD COUNT 3.03 10^6/uL (4.30-6.10); RED CELL DISTRIBUTION WIDTH 15.3 % (11.5-14.5)
[2017-08-02 05:19] LABS: ANION GAP 4 MEQ/L (8-16); BLOOD UREA NITROGEN 44 MG/DL (7-18); CALCIUM LEVEL 9.4 MG/DL (8.8-10.2); CARBON DIOXIDE LEVEL 33 MEQ/L (21-32); CHLORIDE LEVEL 105 MEQ/L (98-107); CREATININE FOR GFR 1.24 MG/DL (0.70-1.30); GLOMERULAR FILTRATION RATE > 60.0 (>49); GLUCOSE, FASTING 265 MG/DL (70-100); POTASSIUM SERUM 4.5 MEQ/L (3.5-5.1); SODIUM LEVEL 142 MEQ/L (136-145); TOBRAMYCIN LEVEL TROUGH 1.8 MCG/ML (0.0-2.0)
[2017-08-02] MEDS: ISOSORBIDE DIN (ISORDIL) 10 MG TAB PEG (05:31)
[2017-08-02] MEDS: D5W IV (05:32)
[2017-08-02] MEDS: oxyBUTYnin 5 MG TAB PO ×3 (05:32→21:00)
[2017-08-02] MEDS: TOBRAMYCIN SULF IV (05:32)
[2017-08-02] MEDS: LEVOTHYROXINE 75MCG TABLET (0.075MG) PEG (05:32)
[2017-08-02] MEDS: HumaLOG INSULIN (NovoLOG) PER UNIT SC ×3 (05:33→17:54)
[2017-08-02 05:57] LABS: BEDSIDE GLUCOSE 275 MG/DL (80-115)
[2017-08-02] MEDS: IPRATROPIUM 0.5MG/ALBUTEROL 2.5MG INH SOL UD 3ML (DUONEB)(J7620) NEB ×2 (07:34→15:27)
[2017-08-02 07:59] LABS: TOBRAMYCIN LEVEL PEAK 7.8 MCG/ML (3.0-10.0)
[2017-08-02] MEDS: FERROUS SULFATE 300MG/5ML UDC LIQUID PEG ×2 (08:29→21:00)
[2017-08-02] MEDS: PANTOPRAZOLE 40MG INJ (PROTONIX) (C9113) IV (08:29)
[2017-08-02] MEDS: FLUTICASONE PROP 0.05% NASAL SPRAY 16 GM (FLONASE) (08:30)
[2017-08-02] MEDS: CETIRIZINE (ZyrTEC) 10 MG TAB PEG (08:31)
[2017-08-02] MEDS: FUROSEMIDE 20 MG TAB PEG (08:31)
[2017-08-02] MEDS: amLODIPine 5 MG TAB PO ×2 (08:31→21:02)
[2017-08-02] MEDS: ALLOPURINOL 100 MG TAB PEG ×2 (08:32→21:00)
[2017-08-02] MEDS: ASCORBIC ACID 500 MG TAB PEG ×2 (08:32→21:00)
[2017-08-02] MEDS: buPROPion 75 MG TAB PEG (08:32)
[2017-08-02] MEDS: METOPROLOL TART 12.5 MG PER 1/2 TAB PEG ×2 (08:32→21:01)
[2017-08-02] MEDS: GABAPENTIN 100 MG CAP PEG ×3 (08:32→20:59)
[2017-08-02] MEDS ORDERED: LORazepam 0.5 MG TAB PO (10:00)
[2017-08-02] MEDS: ALPRAZolam 0.5 MG TAB PEG ×2 (10:06→21:00)
[2017-08-02 12:18] LABS: BEDSIDE GLUCOSE 258 MG/DL (80-115)
[2017-08-02 17:55] LABS: BEDSIDE GLUCOSE 322 MG/DL (80-115)
[2017-08-02] MEDS: LEVEMIR (INSULIN DETEMIR) 1 UNITS/0.01ML SC (20:58)
[2017-08-02] MEDS: BACLOFEN 10 MG TAB PEG (20:59)
[2017-08-03] MEDS: IPRATROPIUM 0.5MG/ALBUTEROL 2.5MG INH SOL UD 3ML (DUONEB)(J7620) NEB ×4 (00:07→23:09)
[2017-08-03] MEDS: HumaLOG INSULIN (NovoLOG) PER UNIT SC ×4 (00:20→18:10)
[2017-08-03 00:23] LABS: BEDSIDE GLUCOSE 336 MG/DL (80-115)
[2017-08-03] MEDS: PIPERACILLIN/TAZOBACTAM SOD 3.375 GM in APPROPRIATE DILUENT 1 EA IV ×4 (04:46→23:56)
[2017-08-03 05:10] LABS: HEMATOCRIT 27.8 % (42.0-52.0); HEMOGLOBIN 8.3 g/dl (13.5-17.5); MEAN CORPUSCULAR HEMOGLOBIN 28.7 pg (27.0-33.0); MEAN CORPUSCULAR HGB CONC 29.9 g/dl (32.0-36.5); MEAN CORPUSCULAR VOLUME 96.2 fl (80.0-96.0); PLATELET COUNT, AUTOMATED 223 10^3/uL (150-450); RED BLOOD COUNT 2.89 10^6/uL (4.30-6.10); RED CELL DISTRIBUTION WIDTH 15.1 % (11.5-14.5); WHITE BLOOD COUNT 10.2 10^3/uL (4.0-10.0)
[2017-08-03 05:24] LABS: ANION GAP 5 MEQ/L (8-16); BLOOD UREA NITROGEN 51 MG/DL (7-18); CALCIUM LEVEL 9.3 MG/DL (8.8-10.2); CARBON DIOXIDE LEVEL 33 MEQ/L (21-32); CHLORIDE LEVEL 102 MEQ/L (98-107); CREATININE FOR GFR 1.42 MG/DL (0.70-1.30); GLOMERULAR FILTRATION RATE 52.6 (>49); GLUCOSE, FASTING 329 MG/DL (70-100); POTASSIUM SERUM 4.9 MEQ/L (3.5-5.1); SODIUM LEVEL 140 MEQ/L (136-145)
[2017-08-03] MEDS: LEVOTHYROXINE 75MCG TABLET (0.075MG) PEG (05:44)
[2017-08-03] MEDS: oxyBUTYnin 5 MG TAB PO ×3 (05:44→21:39)
[2017-08-03 08:06] LABS: PTH RELATED PEPTIDE < 1.1 pmol/L (.)
[2017-08-03] MEDS: FLUTICASONE PROP 0.05% NASAL SPRAY 16 GM (FLONASE) (08:43)
[2017-08-03] MEDS: FERROUS SULFATE 300MG/5ML UDC LIQUID PEG ×2 (08:43→21:38)
[2017-08-03] MEDS: METOPROLOL TART 12.5 MG PER 1/2 TAB PEG ×3 (08:44→21:00)
[2017-08-03] MEDS: GABAPENTIN 100 MG CAP PEG ×3 (08:45→21:39)
[2017-08-03] MEDS: ASCORBIC ACID 500 MG TAB PEG ×2 (08:45→21:38)
[2017-08-03] MEDS: FUROSEMIDE 20 MG TAB PEG (08:45)
[2017-08-03] MEDS: ALLOPURINOL 100 MG TAB PEG ×2 (08:45→21:38)
[2017-08-03] MEDS: amLODIPine 5 MG TAB PO ×2 (08:46→21:00)
[2017-08-03] MEDS: buPROPion 75 MG TAB PEG (08:46)
[2017-08-03] MEDS: CETIRIZINE (ZyrTEC) 10 MG TAB PEG (08:46)
[2017-08-03] MEDS: PANTOPRAZOLE 40MG INJ (PROTONIX) (C9113) IV (08:47)
[2017-08-03 12:11] LABS: BEDSIDE GLUCOSE 309 MG/DL (80-115)
[2017-08-03 17:38] LABS: BEDSIDE GLUCOSE 342 MG/DL (80-115)
[2017-08-03] MEDS: TOBRAMYCIN SULF IV (18:10)
[2017-08-03] MEDS: D5W IV (18:10)
[2017-08-03] MEDS: ALPRAZolam 0.5 MG TAB PEG (21:00)
[2017-08-03] MEDS: BACLOFEN 10 MG TAB PEG (21:38)
[2017-08-03] MEDS: LEVEMIR (INSULIN DETEMIR) 1 UNITS/0.01ML SC (21:41)
[2017-08-03] MEDS ORDERED: METOPROLOL TART 12.5 MG PER 1/2 TAB As Ordered (21:57)
[2017-08-04] MEDS: HumaLOG INSULIN (NovoLOG) PER UNIT SC ×4 (00:03→17:27)
[2017-08-04 00:07] LABS: BEDSIDE GLUCOSE 321 MG/DL (80-115)
[2017-08-04 05:07] LABS: HEMATOCRIT 25.8 % (42.0-52.0); HEMOGLOBIN 7.9 g/dl (13.5-17.5); MEAN CORPUSCULAR HEMOGLOBIN 28.9 pg (27.0-33.0); MEAN CORPUSCULAR HGB CONC 30.6 g/dl (32.0-36.5); MEAN CORPUSCULAR VOLUME 94.5 fl (80.0-96.0); PLATELET COUNT, AUTOMATED 207 10^3/uL (150-450); RED BLOOD COUNT 2.73 10^6/uL (4.30-6.10); RED CELL DISTRIBUTION WIDTH 14.9 % (11.5-14.5); WHITE BLOOD COUNT 8.1 10^3/uL (4.0-10.0)
[2017-08-04 05:26] LABS: ANION GAP 6 MEQ/L (8-16); BLOOD UREA NITROGEN 56 MG/DL (7-18); CALCIUM LEVEL 9.3 MG/DL (8.8-10.2); CARBON DIOXIDE LEVEL 32 MEQ/L (21-32); CHLORIDE LEVEL 101 MEQ/L (98-107); CREATININE FOR GFR 1.56 MG/DL (0.70-1.30); GLOMERULAR FILTRATION RATE 47.2 (>49); GLUCOSE, FASTING 299 MG/DL (70-100); POTASSIUM SERUM 4.9 MEQ/L (3.5-5.1); SODIUM LEVEL 139 MEQ/L (136-145)
[2017-08-04] MEDS: PIPERACILLIN/TAZOBACTAM SOD 3.375 GM in APPROPRIATE DILUENT 1 EA IV ×4 (05:55→23:09)
[2017-08-04] MEDS: oxyBUTYnin 5 MG TAB PO ×3 (05:56→21:35)
[2017-08-04] MEDS: LEVOTHYROXINE 75MCG TABLET (0.075MG) PEG (05:56)
[2017-08-04] MEDS: IPRATROPIUM 0.5MG/ALBUTEROL 2.5MG INH SOL UD 3ML (DUONEB)(J7620) NEB ×3 (07:24→23:58)
[2017-08-04] MEDS: ASCORBIC ACID 500 MG TAB PEG ×2 (08:59→21:00)
[2017-08-04] MEDS: buPROPion 75 MG TAB PEG (08:59)
[2017-08-04] MEDS: FERROUS SULFATE 300MG/5ML UDC LIQUID PEG ×2 (08:59→21:34)
[2017-08-04] MEDS: amLODIPine 5 MG TAB PO ×2 (09:00→21:00)
[2017-08-04] MEDS: ALLOPURINOL 100 MG TAB PEG ×2 (09:00→21:35)
[2017-08-04] MEDS: CETIRIZINE (ZyrTEC) 10 MG TAB PEG (09:00)
[2017-08-04] MEDS: FLUTICASONE PROP 0.05% NASAL SPRAY 16 GM (FLONASE) (09:00)
[2017-08-04] MEDS: PANTOPRAZOLE 40MG INJ (PROTONIX) (C9113) IV (09:01)
[2017-08-04] MEDS: ALPRAZolam 0.5 MG TAB PEG ×2 (09:01→21:35)
[2017-08-04] MEDS: FUROSEMIDE 20 MG TAB PEG (09:10)
[2017-08-04] MEDS: GABAPENTIN 100 MG CAP PEG ×3 (09:11→21:35)
[2017-08-04] MEDS: METOPROLOL TART 12.5 MG PER 1/2 TAB PEG ×2 (09:11→21:00)
[2017-08-04 10:50] LABS: BEDSIDE GLUCOSE 338 MG/DL (80-115)
[2017-08-04 11:59] LABS: BEDSIDE GLUCOSE 252 MG/DL (80-115)
[2017-08-04 13:23] LABS: IMMEDIATE SPIN CROSSMATCH 1 1
[2017-08-04] MEDS: BISACODYL 10 MG SUPP PR (14:21)
[2017-08-04] MEDS: hydrOXYzine 10MG/5ML SYRUP PO (15:17)
[2017-08-04 17:11] LABS: BEDSIDE GLUCOSE 259 MG/DL (80-115)
[2017-08-04] MEDS: LEVEMIR (INSULIN DETEMIR) 1 UNITS/0.01ML SC (21:35)
[2017-08-04] MEDS: BACLOFEN 10 MG TAB PEG (21:35)
[2017-08-04 21:54] LABS: BEDSIDE GLUCOSE 258 MG/DL (80-115)
[2017-08-05 00:04] LABS: BEDSIDE GLUCOSE 265 MG/DL (80-115)
[2017-08-05 04:53] LABS: HEMOGLOBIN 8.5 g/dl (13.5-17.5); MEAN CORPUSCULAR HEMOGLOBIN 29.3 pg (27.0-33.0); MEAN CORPUSCULAR HGB CONC 31.5 g/dl (32.0-36.5); MEAN CORPUSCULAR VOLUME 93.1 fl (80.0-96.0); PLATELET COUNT, AUTOMATED 210 10^3/uL (150-450); RED CELL DISTRIBUTION WIDTH 15.1 % (11.5-14.5); WHITE BLOOD COUNT 8.7 10^3/uL (4.0-10.0)
[2017-08-05] MEDS: oxyBUTYnin 5 MG TAB PO ×3 (05:09→21:33)
[2017-08-05] MEDS: LEVOTHYROXINE 75MCG TABLET (0.075MG) PEG (05:09)
[2017-08-05] MEDS: PIPERACILLIN/TAZOBACTAM SOD 3.375 GM in APPROPRIATE DILUENT 1 EA IV ×4 (05:10→23:59)
[2017-08-05 05:12] LABS: ANION GAP 6 MEQ/L (8-16); BLOOD UREA NITROGEN 62 MG/DL (7-18); CALCIUM LEVEL 9.5 MG/DL (8.8-10.2); CARBON DIOXIDE LEVEL 33 MEQ/L (21-32); CHLORIDE LEVEL 101 MEQ/L (98-107); GLUCOSE, FASTING 281 MG/DL (70-100); POTASSIUM SERUM 4.9 MEQ/L (3.5-5.1); SODIUM LEVEL 140 MEQ/L (136-145)
[2017-08-05] MEDS: HumaLOG INSULIN (NovoLOG) PER UNIT SC ×5 (06:00→23:59)
[2017-08-05] MEDS: ALBUTEROL SULFATE 2.5 MG/0.5 ML INH NEB SOLN NEB ×2 (08:00→15:14)
[2017-08-05] MEDS: IPRATROPIUM 0.5MG/ALBUTEROL 2.5MG INH SOL UD 3ML (DUONEB)(J7620) NEB (08:30)
[2017-08-05 08:50] LABS: NT-PRO BNP 2098 PG/ML (<125)
[2017-08-05] MEDS: amLODIPine 5 MG TAB PO ×2 (09:00→21:50)
[2017-08-05] MEDS: FUROSEMIDE 20 MG TAB PEG (09:00)
[2017-08-05] MEDS: FERROUS SULFATE 300MG/5ML UDC LIQUID PEG ×2 (09:05→21:32)
[2017-08-05] MEDS: ALLOPURINOL 100 MG TAB PEG ×2 (09:07→21:33)
[2017-08-05] MEDS: FLUTICASONE PROP 0.05% NASAL SPRAY 16 GM (FLONASE) (09:07)
[2017-08-05] MEDS: CETIRIZINE (ZyrTEC) 10 MG TAB PEG (09:07)
[2017-08-05] MEDS: METOPROLOL TART 12.5 MG PER 1/2 TAB PEG ×2 (09:07→21:50)
[2017-08-05] MEDS: ASCORBIC ACID 500 MG TAB PEG ×2 (09:07→21:33)
[2017-08-05] MEDS: GABAPENTIN 100 MG CAP PEG ×3 (09:07→21:31)
[2017-08-05] MEDS: PANTOPRAZOLE 40MG INJ (PROTONIX) (C9113) IV (10:23)
[2017-08-05 11:06] LABS: AMORPHOUS SEDIMENT RFX SMALL (NEGATIVE); CALCIUM OXALATE CRYSTALS RFX SMALL; KETONE, URINE AUTO RFX NEGATIVE (NEGATIVE); LEUKOCYTE ESTERASE UR AUTO RFX 3+ (NEGATIVE); MUCUS, URINE RFX SMALL (NEGATIVE); NITRITE, URINE AUTO RFX NEGATIVE (NEGATIVE); RBC, URINE AUTO RFX 139 /HPF (0-3); SPECIFIC GRAVITY UR AUTO RFX 1.009 (1.002-1.035); SQUAM EPITHELIAL CELL UR AURFX 0 /HPF (0-6); WBC, URINE AUTO RFX TNTC /HPF (0-3); YEAST LIKE CELL URINE AUTO RFX LARGE
[2017-08-05 12:46] LABS: BEDSIDE GLUCOSE 350 MG/DL (80-115)
[2017-08-05] MEDS: buPROPion 75 MG TAB PEG (12:58)
[2017-08-05 18:20] LABS: BEDSIDE GLUCOSE 300 MG/DL (80-115)
[2017-08-05] MEDS: BACLOFEN 10 MG TAB PEG (21:31)
[2017-08-05] MEDS: LEVEMIR (INSULIN DETEMIR) 1 UNITS/0.01ML SC (21:34)
[2017-08-05] MEDS: ALPRAZolam 0.5 MG TAB PEG (21:50)
[2017-08-06 00:03] LABS: BEDSIDE GLUCOSE 297 MG/DL (80-115)
[2017-08-06 00:03] LABS: BEDSIDE GLUCOSE 320 MG/DL (80-115)
[2017-08-06] MEDS: ALBUTEROL SULFATE 2.5 MG/0.5 ML INH NEB SOLN NEB ×4 (00:05→22:31)
[2017-08-06] MEDS: ACETAMINOPHEN 325 MG/10.15 ML UDC GT ×2 (02:50→20:50)
[2017-08-06] MEDS: hydrOXYzine 10MG/5ML SYRUP PO (02:50)
[2017-08-06] MEDS: PIPERACILLIN/TAZOBACTAM SOD 3.375 GM in APPROPRIATE DILUENT 1 EA IV ×4 (05:07→22:04)
[2017-08-06] MEDS: LEVOTHYROXINE 75MCG TABLET (0.075MG) PEG (06:06)
[2017-08-06] MEDS: oxyBUTYnin 5 MG TAB PO ×3 (06:06→22:01)
[2017-08-06] MEDS: HumaLOG INSULIN (NovoLOG) PER UNIT SC ×3 (06:06→17:51)
[2017-08-06 08:46] LABS: BASO # 0.1 10^3/uL (0.0-0.2); BASO % 0.7 % (0.0-1.0); EOS # 0.3 10^3/uL (0.0-0.50); EOS % 4.4 % (0.0-3.0); HEMATOCRIT 29.1 % (42.0-52.0); HEMOGLOBIN 9.1 g/dl (13.5-17.5); IMMATURE GRANULOCYTE % 4.8 % (0-3.0); LYMPH # 1.2 10^3/uL (1.5-4.5); LYMPH % 16.2 % (24.0-44.0); MEAN CORPUSCULAR HEMOGLOBIN 29.4 pg (27.0-33.0); MEAN CORPUSCULAR HGB CONC 31.3 g/dl (32.0-36.5); MEAN CORPUSCULAR VOLUME 93.9 fl (80.0-96.0); MONO # 0.5 10^3/uL (0.0-0.8); MONO % 6.4 % (0.0-5.0); NEUTROPHILS # 5.2 10^3/uL (1.8-7.7); NEUTROPHILS % 67.5 % (36.0-66.0); PLATELET COUNT, AUTOMATED 193 10^3/uL (150-450); RED CELL DISTRIBUTION WIDTH 14.9 % (11.5-14.5); WHITE BLOOD COUNT 7.7 10^3/uL (4.0-10.0)
[2017-08-06] MEDS: PANTOPRAZOLE 40MG INJ (PROTONIX) (C9113) IV (09:09)
[2017-08-06] MEDS: ASCORBIC ACID 500 MG TAB PEG ×2 (09:10→22:04)
[2017-08-06] MEDS: GABAPENTIN 100 MG CAP PEG ×3 (09:10→21:57)
[2017-08-06] MEDS: FERROUS SULFATE 300MG/5ML UDC LIQUID PEG ×2 (09:10→21:57)
[2017-08-06] MEDS: FUROSEMIDE 20 MG TAB PEG (09:10)
[2017-08-06] MEDS: ALLOPURINOL 100 MG TAB PEG ×2 (09:10→21:57)
[2017-08-06] MEDS: CETIRIZINE (ZyrTEC) 10 MG TAB PEG (09:10)
[2017-08-06] MEDS: buPROPion 75 MG TAB PEG (09:11)
[2017-08-06] MEDS: METOPROLOL TART 12.5 MG PER 1/2 TAB PEG ×2 (09:11→22:03)
[2017-08-06] MEDS: FLUTICASONE PROP 0.05% NASAL SPRAY 16 GM (FLONASE) (09:12)
[2017-08-06] MEDS: amLODIPine 5 MG TAB PO ×2 (09:12→22:03)
[2017-08-06 09:23] LABS: ALBUMIN 1.6 GM/DL (3.2-5.2); ALBUMIN/GLOBULIN RATIO 0.39 (1.00-1.93); ALKALINE PHOSPHATASE 135 U/L (45-117); ALT/SGPT 9 U/L (12-78); ANION GAP 7 MEQ/L (8-16); AST/SGOT 7 U/L (7-37); BILIRUBIN,TOTAL 0.3 MG/DL (0.2-1.0); BLOOD UREA NITROGEN 60 MG/DL (7-18); CALCIUM LEVEL 9.2 MG/DL (8.8-10.2); CARBON DIOXIDE LEVEL 33 MEQ/L (21-32); CHLORIDE LEVEL 102 MEQ/L (98-107); CREATININE FOR GFR 1.93 MG/DL (0.70-1.30); GLOMERULAR FILTRATION RATE 36.9 (>49); GLUCOSE, FASTING 282 MG/DL (70-100); POTASSIUM SERUM 4.9 MEQ/L (3.5-5.1); SODIUM LEVEL 142 MEQ/L (136-145); TOTAL PROTEIN 5.7 GM/DL (6.4-8.2)
[2017-08-06 12:47] LABS: BEDSIDE GLUCOSE 274 MG/DL (80-115)
[2017-08-06 17:33] LABS: BEDSIDE GLUCOSE 240 MG/DL (80-115)
[2017-08-06] MEDS: LEVEMIR (INSULIN DETEMIR) 1 UNITS/0.01ML SC (21:55)
[2017-08-06] MEDS: BACLOFEN 10 MG TAB PEG (22:01)
[2017-08-06] MEDS: ALPRAZolam 0.5 MG TAB PEG (22:03)
[2017-08-06 22:28] LABS: BEDSIDE GLUCOSE 279 MG/DL (80-115)
[2017-08-07 00:12] LABS: BEDSIDE GLUCOSE 295 MG/DL (80-115)
[2017-08-07] MEDS: HumaLOG INSULIN (NovoLOG) PER UNIT SC ×5 (00:14→23:57)
[2017-08-07 04:34] LABS: HEMATOCRIT 29.8 % (42.0-52.0); HEMOGLOBIN 9.2 g/dl (13.5-17.5); MEAN CORPUSCULAR HEMOGLOBIN 29.3 pg (27.0-33.0); MEAN CORPUSCULAR HGB CONC 30.9 g/dl (32.0-36.5); MEAN CORPUSCULAR VOLUME 94.9 fl (80.0-96.0); PLATELET COUNT, AUTOMATED 217 10^3/uL (150-450); RED BLOOD COUNT 3.14 10^6/uL (4.30-6.10); WHITE BLOOD COUNT 9.3 10^3/uL (4.0-10.0)
[2017-08-07 04:59] LABS: ANION GAP 9 MEQ/L (8-16); BLOOD UREA NITROGEN 59 MG/DL (7-18); CALCIUM LEVEL 9.7 MG/DL (8.8-10.2); CARBON DIOXIDE LEVEL 32 MEQ/L (21-32); CHLORIDE LEVEL 101 MEQ/L (98-107); GLOMERULAR FILTRATION RATE 35.4 (>49); GLUCOSE, FASTING 259 MG/DL (70-100); POTASSIUM SERUM 4.5 MEQ/L (3.5-5.1); SODIUM LEVEL 142 MEQ/L (136-145)
[2017-08-07] MEDS: PIPERACILLIN/TAZOBACTAM SOD 3.375 GM in APPROPRIATE DILUENT 1 EA IV (05:02)
[2017-08-07] MEDS: oxyBUTYnin 5 MG TAB PO ×3 (06:27→22:09)
[2017-08-07] MEDS: LEVOTHYROXINE 75MCG TABLET (0.075MG) PEG (06:27)
[2017-08-07 06:38] LABS: BEDSIDE GLUCOSE 312 MG/DL (80-115)
[2017-08-07] MEDS: ALBUTEROL SULFATE 2.5 MG/0.5 ML INH NEB SOLN NEB ×4 (07:09→23:14)
[2017-08-07] MEDS: FLUCONAZOLE 200 MG in APPROPRIATE DILUENT 1 EA IV (08:22)
[2017-08-07] MEDS: PANTOPRAZOLE 40MG INJ (PROTONIX) (C9113) IV (08:22)
[2017-08-07 08:40] LABS: BEDSIDE GLUCOSE 323 MG/DL (80-115)
[2017-08-07] MEDS: METOPROLOL TART 12.5 MG PER 1/2 TAB PEG ×2 (09:00→20:48)
[2017-08-07] MEDS: FERROUS SULFATE 300MG/5ML UDC LIQUID PEG ×2 (09:00→20:52)
[2017-08-07] MEDS: amLODIPine 5 MG TAB PO ×2 (09:00→20:49)
[2017-08-07] MEDS: FUROSEMIDE 20 MG TAB PEG (09:00)
[2017-08-07] MEDS: CETIRIZINE (ZyrTEC) 10 MG TAB PEG (09:01)
[2017-08-07] MEDS: ASCORBIC ACID 500 MG TAB PEG ×2 (09:01→20:49)
[2017-08-07] MEDS: GABAPENTIN 100 MG CAP PEG ×3 (09:01→20:47)
[2017-08-07] MEDS: ALLOPURINOL 100 MG TAB PEG ×2 (09:01→20:48)
[2017-08-07] MEDS: buPROPion 75 MG TAB PEG (09:02)
[2017-08-07] MEDS: FLUTICASONE PROP 0.05% NASAL SPRAY 16 GM (FLONASE) (09:02)
[2017-08-07 12:09] LABS: BEDSIDE GLUCOSE 278 MG/DL (80-115)
[2017-08-07] MEDS: ACETAMINOPHEN 325 MG/10.15 ML UDC GT (16:06)
[2017-08-07 17:47] LABS: BEDSIDE GLUCOSE 270 MG/DL (80-115)
[2017-08-07] MEDS: BACLOFEN 10 MG TAB PEG (20:49)
[2017-08-07] MEDS: ALPRAZolam 0.5 MG TAB PEG (20:50)
[2017-08-07] MEDS: LEVEMIR (INSULIN DETEMIR) 1 UNITS/0.01ML SC (20:51)
[2017-08-07 23:53] LABS: BEDSIDE GLUCOSE 254 MG/DL (80-115)
[2017-08-08] MEDS: ACETAMINOPHEN 325 MG/10.15 ML UDC GT ×3 (01:11→20:45)
[2017-08-08 04:33] LABS: HEMATOCRIT 32.3 % (42.0-52.0); HEMOGLOBIN 9.9 g/dl (13.5-17.5); MEAN CORPUSCULAR HEMOGLOBIN 28.7 pg (27.0-33.0); MEAN CORPUSCULAR HGB CONC 30.7 g/dl (32.0-36.5); MEAN CORPUSCULAR VOLUME 93.6 fl (80.0-96.0); PLATELET COUNT, AUTOMATED 231 10^3/uL (150-450); RED BLOOD COUNT 3.45 10^6/uL (4.30-6.10); RED CELL DISTRIBUTION WIDTH 14.9 % (11.5-14.5); WHITE BLOOD COUNT 12.5 10^3/uL (4.0-10.0)
[2017-08-08 04:49] LABS: ANION GAP 8 MEQ/L (8-16); BLOOD UREA NITROGEN 55 MG/DL (7-18); CALCIUM LEVEL 9.8 MG/DL (8.8-10.2); CARBON DIOXIDE LEVEL 30 MEQ/L (21-32); CHLORIDE LEVEL 104 MEQ/L (98-107); CREATININE FOR GFR 1.96 MG/DL (0.70-1.30); GLOMERULAR FILTRATION RATE 36.3 (>49); GLUCOSE, FASTING 246 MG/DL (70-100); POTASSIUM SERUM 4.8 MEQ/L (3.5-5.1); SODIUM LEVEL 142 MEQ/L (136-145)
[2017-08-08] MEDS: LEVOTHYROXINE 75MCG TABLET (0.075MG) PEG (05:30)
[2017-08-08] MEDS: HumaLOG INSULIN (NovoLOG) PER UNIT SC ×3 (05:30→18:09)
[2017-08-08] MEDS: oxyBUTYnin 5 MG TAB PO ×3 (05:30→21:10)
[2017-08-08] MEDS: FLUCONAZOLE 200 MG in APPROPRIATE DILUENT 1 EA IV (07:46)
[2017-08-08] MEDS: ALBUTEROL SULFATE 2.5 MG/0.5 ML INH NEB SOLN NEB ×2 (07:49→15:08)
[2017-08-08] MEDS: FLUTICASONE PROP 0.05% NASAL SPRAY 16 GM (FLONASE) (08:28)
[2017-08-08] MEDS: FERROUS SULFATE 300MG/5ML UDC LIQUID PEG ×2 (08:29→20:46)
[2017-08-08] MEDS: METOPROLOL TART 12.5 MG PER 1/2 TAB PEG ×2 (08:29→20:46)
[2017-08-08] MEDS: ALLOPURINOL 100 MG TAB PEG ×2 (08:29→20:47)
[2017-08-08] MEDS: GABAPENTIN 100 MG CAP PEG ×3 (08:29→20:46)
[2017-08-08] MEDS: PANTOPRAZOLE 40MG INJ (PROTONIX) (C9113) IV (08:29)
[2017-08-08] MEDS: amLODIPine 5 MG TAB PO ×2 (08:30→20:47)
[2017-08-08] MEDS: CETIRIZINE (ZyrTEC) 10 MG TAB PEG (08:30)
[2017-08-08] MEDS: FUROSEMIDE 20 MG TAB PEG (08:30)
[2017-08-08] MEDS: ASCORBIC ACID 500 MG TAB PEG ×2 (08:30→20:47)
[2017-08-08 11:48] LABS: BEDSIDE GLUCOSE 229 MG/DL (80-115)
[2017-08-08] MEDS: buPROPion 75 MG TAB PEG (11:48)
[2017-08-08] MEDS: NORCO, ANEXSIA 5/325MG TABLET (HYDROcodone/ACETAMINOPHEN) PEG (11:49)
[2017-08-08 17:59] LABS: BEDSIDE GLUCOSE 235 MG/DL (80-115)
[2017-08-08] MEDS: LEVEMIR (INSULIN DETEMIR) 1 UNITS/0.01ML SC (20:46)
[2017-08-08] MEDS: ALPRAZolam 0.5 MG TAB PEG (20:46)
[2017-08-08] MEDS: BACLOFEN 10 MG TAB PEG (20:47)
[2017-08-08 20:49] LABS: BEDSIDE GLUCOSE 260 MG/DL (80-115)
[2017-08-08] MEDS ORDERED: SORBITOL 70% 30ML UNIT DOSE CUP PO (21:45)
[2017-08-08] MEDS ORDERED: SOD POLYSTYRENE SULFONATE SUSP 15 GM/60 ML UD PO (21:45)
[2017-08-09] MEDS: ALBUTEROL SULFATE 2.5 MG/0.5 ML INH NEB SOLN NEB ×4 (00:14→23:45)
[2017-08-09 00:19] LABS: BEDSIDE GLUCOSE 313 MG/DL (80-115)
[2017-08-09 04:37] LABS: HEMOGLOBIN 9.8 g/dl (13.5-17.5); MEAN CORPUSCULAR HEMOGLOBIN 29.3 pg (27.0-33.0); MEAN CORPUSCULAR HGB CONC 30.6 g/dl (32.0-36.5); MEAN CORPUSCULAR VOLUME 95.8 fl (80.0-96.0); PLATELET COUNT, AUTOMATED 223 10^3/uL (150-450); RED BLOOD COUNT 3.34 10^6/uL (4.30-6.10); RED CELL DISTRIBUTION WIDTH 15.2 % (11.5-14.5); WHITE BLOOD COUNT 13.6 10^3/uL (4.0-10.0)
[2017-08-09 04:50] LABS: ANION GAP 8 MEQ/L (8-16); BLOOD UREA NITROGEN 61 MG/DL (7-18); CALCIUM LEVEL 9.9 MG/DL (8.8-10.2); CARBON DIOXIDE LEVEL 32 MEQ/L (21-32); CHLORIDE LEVEL 103 MEQ/L (98-107); CREATININE FOR GFR 2.02 MG/DL (0.70-1.30); GLUCOSE, FASTING 247 MG/DL (70-100); POTASSIUM SERUM 4.4 MEQ/L (3.5-5.1); SODIUM LEVEL 143 MEQ/L (136-145)
[2017-08-09] MEDS: oxyBUTYnin 5 MG TAB PO ×3 (06:39→21:14)
[2017-08-09] MEDS: LEVOTHYROXINE 75MCG TABLET (0.075MG) PEG (06:39)
[2017-08-09] MEDS: HumaLOG INSULIN (NovoLOG) PER UNIT SC ×5 (06:40→23:54)
[2017-08-09] MEDS: FLUCONAZOLE 200 MG in APPROPRIATE DILUENT 1 EA IV (08:23)
[2017-08-09] MEDS: GABAPENTIN 100 MG CAP PEG ×3 (09:14→21:14)
[2017-08-09] MEDS: PANTOPRAZOLE 40MG INJ (PROTONIX) (C9113) IV (09:14)
[2017-08-09] MEDS: FERROUS SULFATE 300MG/5ML UDC LIQUID PEG ×2 (09:14→21:13)
[2017-08-09] MEDS: buPROPion 75 MG TAB PEG (09:14)
[2017-08-09] MEDS: amLODIPine 5 MG TAB PO ×2 (09:15→21:15)
[2017-08-09] MEDS: METOPROLOL TART 12.5 MG PER 1/2 TAB PEG ×2 (09:15→21:15)
[2017-08-09] MEDS: FUROSEMIDE 20 MG TAB PEG (09:15)
[2017-08-09] MEDS: CETIRIZINE (ZyrTEC) 10 MG TAB PEG (09:15)
[2017-08-09] MEDS: ASCORBIC ACID 500 MG TAB PEG ×2 (09:16→21:13)
[2017-08-09] MEDS: ALLOPURINOL 100 MG TAB PEG ×2 (09:16→21:13)
[2017-08-09] MEDS: FLUTICASONE PROP 0.05% NASAL SPRAY 16 GM (FLONASE) (09:16)
[2017-08-09 11:57] LABS: BEDSIDE GLUCOSE 245 MG/DL (80-115)
[2017-08-09 13:46] LABS: CREATININE,RANDOM URINE 14.2 MG/DL
[2017-08-09 13:46] LABS: SODIUM,RANDOM URINE 98 MEQ/L
[2017-08-09 18:22] LABS: BEDSIDE GLUCOSE 239 MG/DL (80-115)
[2017-08-09] MEDS: ALPRAZolam 0.5 MG TAB PEG (21:13)
[2017-08-09] MEDS: LEVEMIR (INSULIN DETEMIR) 1 UNITS/0.01ML SC (21:13)
[2017-08-09] MEDS: ACETAMINOPHEN 325 MG/10.15 ML UDC GT (21:13)
[2017-08-09] MEDS: BACLOFEN 10 MG TAB PEG (21:14)
[2017-08-09 21:17] LABS: BEDSIDE GLUCOSE 255 MG/DL (80-115)
[2017-08-09 23:58] LABS: BEDSIDE GLUCOSE 318 MG/DL (80-115)
[2017-08-10 04:46] LABS: HEMATOCRIT 32.2 % (42.0-52.0); HEMOGLOBIN 9.8 g/dl (13.5-17.5); MEAN CORPUSCULAR HEMOGLOBIN 28.9 pg (27.0-33.0); MEAN CORPUSCULAR HGB CONC 30.4 g/dl (32.0-36.5); PLATELET COUNT, AUTOMATED 214 10^3/uL (150-450); RED BLOOD COUNT 3.39 10^6/uL (4.30-6.10); RED CELL DISTRIBUTION WIDTH 15.4 % (11.5-14.5); WHITE BLOOD COUNT 11.3 10^3/uL (4.0-10.0)
[2017-08-10 05:07] LABS: ANION GAP 7 MEQ/L (8-16); BLOOD UREA NITROGEN 62 MG/DL (7-18); CARBON DIOXIDE LEVEL 32 MEQ/L (21-32); CHLORIDE LEVEL 103 MEQ/L (98-107); CREATININE FOR GFR 1.97 MG/DL (0.70-1.30); GLOMERULAR FILTRATION RATE 36.1 (>49); GLUCOSE, FASTING 266 MG/DL (70-100); POTASSIUM SERUM 4.4 MEQ/L (3.5-5.1); SODIUM LEVEL 142 MEQ/L (136-145)
[2017-08-10] MEDS ORDERED: ONDANSETRON 4MG/2ML VIAL (J2405) As Ordered (05:10)
[2017-08-10] MEDS: oxyBUTYnin 5 MG TAB PO ×3 (05:12→21:09)
[2017-08-10] MEDS: LEVOTHYROXINE 75MCG TABLET (0.075MG) PEG (05:12)
[2017-08-10] MEDS: ONDANSETRON 4MG/2ML VIAL (J2405) IV (05:17)
[2017-08-10] MEDS: HumaLOG INSULIN (NovoLOG) PER UNIT SC ×3 (05:40→18:03)
[2017-08-10] MEDS: ALBUTEROL SULFATE 2.5 MG/0.5 ML INH NEB SOLN NEB ×3 (08:05→23:54)
[2017-08-10] MEDS: PROMETHAZINE INJ 25 MG/ML VIAL (J2550) IV (08:44)
[2017-08-10] MEDS: PANTOPRAZOLE 40MG INJ (PROTONIX) (C9113) IV (09:55)
[2017-08-10] MEDS: buPROPion 75 MG TAB PEG (09:55)
[2017-08-10] MEDS: ALLOPURINOL 100 MG TAB PEG ×2 (09:55→21:09)
[2017-08-10] MEDS: ASCORBIC ACID 500 MG TAB PEG ×2 (09:55→21:09)
[2017-08-10] MEDS: amLODIPine 5 MG TAB PO ×2 (09:56→21:09)
[2017-08-10] MEDS: GABAPENTIN 100 MG CAP PEG (09:56)
[2017-08-10] MEDS: FERROUS SULFATE 300MG/5ML UDC LIQUID PEG ×2 (09:57→21:08)
[2017-08-10] MEDS: METOPROLOL TART 12.5 MG PER 1/2 TAB PEG ×2 (09:57→21:09)
[2017-08-10] MEDS: CETIRIZINE (ZyrTEC) 10 MG TAB PEG (09:58)
[2017-08-10] MEDS: FUROSEMIDE 20 MG TAB PEG (10:01)
[2017-08-10] MEDS: FLUTICASONE PROP 0.05% NASAL SPRAY 16 GM (FLONASE) (10:02)
[2017-08-10] MEDS: FLUCONAZOLE 100 MG TAB PEG (10:02)
[2017-08-10 11:51] LABS: BEDSIDE GLUCOSE 186 MG/DL (80-115)
[2017-08-10] MEDS: NS 1,000 ML IV (12:15)
[2017-08-10] MEDS: ACETAMINOPHEN 325 MG/10.15 ML UDC GT (13:08)
[2017-08-10] MEDS: PIPERACILLIN/TAZOBACTAM SOD 3.375 GM in APPROPRIATE DILUENT 1 EA IV ×2 (16:41→21:08)
[2017-08-10] MEDS: TOBRAMYCIN SULF IV (18:02)
[2017-08-10] MEDS: D5W IV (18:02)
[2017-08-10 18:03] LABS: BEDSIDE GLUCOSE 204 MG/DL (80-115)
[2017-08-10] MEDS: LEVEMIR (INSULIN DETEMIR) 1 UNITS/0.01ML SC (21:08)
[2017-08-10] MEDS: ALPRAZolam 0.5 MG TAB PEG (21:09)
[2017-08-10] MEDS: BACLOFEN 10 MG TAB PEG (21:09)
[2017-08-10 21:51] LABS: BEDSIDE GLUCOSE 206 MG/DL (80-115)
[2017-08-11] MEDS: HumaLOG INSULIN (NovoLOG) PER UNIT SC ×4 (00:08→17:45)
[2017-08-11 00:10] LABS: BEDSIDE GLUCOSE 191 MG/DL (80-115)
[2017-08-11] MEDS: PIPERACILLIN/TAZOBACTAM SOD 3.375 GM in APPROPRIATE DILUENT 1 EA IV (04:43)
[2017-08-11] MEDS: SODIUM CHLORIDE 0.9% INJ 10 ML SYR IV ×2 (05:43→17:35)
[2017-08-11] MEDS: LEVOTHYROXINE 75MCG TABLET (0.075MG) PEG (05:44)
[2017-08-11] MEDS: oxyBUTYnin 5 MG TAB PO ×3 (05:44→21:22)
[2017-08-11 05:54] LABS: HEMATOCRIT 26.3 % (42.0-52.0); HEMOGLOBIN 7.9 g/dl (13.5-17.5); MEAN CORPUSCULAR HEMOGLOBIN 29.2 pg (27.0-33.0); PLATELET COUNT, AUTOMATED 184 10^3/uL (150-450); RED BLOOD COUNT 2.71 10^6/uL (4.30-6.10); RED CELL DISTRIBUTION WIDTH 15.9 % (11.5-14.5); WHITE BLOOD COUNT 9.2 10^3/uL (4.0-10.0)
[2017-08-11 06:09] LABS: ANION GAP 6 MEQ/L (8-16); BLOOD UREA NITROGEN 70 MG/DL (7-18); CALCIUM LEVEL 9.1 MG/DL (8.8-10.2); CARBON DIOXIDE LEVEL 32 MEQ/L (21-32); CHLORIDE LEVEL 106 MEQ/L (98-107); CREATININE FOR GFR 2.11 MG/DL (0.70-1.30); GLOMERULAR FILTRATION RATE 33.3 (>49); GLUCOSE, FASTING 241 MG/DL (70-100); POTASSIUM SERUM 4.8 MEQ/L (3.5-5.1); SODIUM LEVEL 144 MEQ/L (136-145)
[2017-08-11] MEDS: ALBUTEROL SULFATE 2.5 MG/0.5 ML INH NEB SOLN NEB ×3 (08:06→23:51)
[2017-08-11] MEDS: METOPROLOL TART 12.5 MG PER 1/2 TAB PEG ×2 (09:23→21:10)
[2017-08-11] MEDS: amLODIPine 5 MG TAB PO ×2 (09:23→21:11)
[2017-08-11] MEDS: FUROSEMIDE 20 MG TAB PEG (09:23)
[2017-08-11] MEDS: PANTOPRAZOLE 40MG INJ (PROTONIX) (C9113) IV (10:59)
[2017-08-11] MEDS: ALLOPURINOL 100 MG TAB PEG ×2 (11:00→21:22)
[2017-08-11] MEDS: FLUTICASONE PROP 0.05% NASAL SPRAY 16 GM (FLONASE) (11:00)
[2017-08-11] MEDS: FERROUS SULFATE 300MG/5ML UDC LIQUID PEG ×2 (11:00→21:22)
[2017-08-11] MEDS: buPROPion 75 MG TAB PEG (11:00)
[2017-08-11] MEDS: FLUCONAZOLE 100 MG TAB PEG (11:00)
[2017-08-11] MEDS: ASCORBIC ACID 500 MG TAB PEG ×2 (11:00→21:22)
[2017-08-11] MEDS: CETIRIZINE (ZyrTEC) 10 MG TAB PEG (11:00)
[2017-08-11 12:18] LABS: BEDSIDE GLUCOSE 265 MG/DL (80-115)
[2017-08-11 15:44] LABS: IMMEDIATE SPIN CROSSMATCH 1 1
[2017-08-11] MEDS ORDERED: PIPERACILLIN/TAZOBACTAM SOD 2.25 GM in APPROPRIATE DILUENT 1 EA IV (16:00)
[2017-08-11] MEDS: D5W IV (16:23)
[2017-08-11] MEDS: TOBRAMYCIN SULF IV (16:23)
[2017-08-11] MEDS: PIPERACILLIN/TAZOBACTAM SOD 2.25 GM in D5W MINI-BAG PLUS 50 ML IV ×2 (17:45→21:22)
[2017-08-11 17:56] LABS: BEDSIDE GLUCOSE 266 MG/DL (80-115)
[2017-08-11] MEDS: NORCO, ANEXSIA 5/325MG TABLET (HYDROcodone/ACETAMINOPHEN) PEG (19:36)
[2017-08-11] MEDS: ALPRAZolam 0.5 MG TAB PEG (21:10)
[2017-08-11] MEDS: BACLOFEN 10 MG TAB PEG (21:22)
[2017-08-11] MEDS: LEVEMIR (INSULIN DETEMIR) 1 UNITS/0.01ML SC (21:23)
[2017-08-12] MEDS: HumaLOG INSULIN (NovoLOG) PER UNIT SC ×5 (00:13→23:57)
[2017-08-12 00:15] LABS: BEDSIDE GLUCOSE 286 MG/DL (80-115)
[2017-08-12] MEDS: PIPERACILLIN/TAZOBACTAM SOD 2.25 GM in D5W MINI-BAG PLUS 50 ML IV ×4 (03:45→21:28)
[2017-08-12] MEDS: NORCO, ANEXSIA 5/325MG TABLET (HYDROcodone/ACETAMINOPHEN) PEG ×2 (03:45→12:29)
[2017-08-12] MEDS: oxyBUTYnin 5 MG TAB PO ×3 (05:58→21:29)
[2017-08-12] MEDS: LEVOTHYROXINE 75MCG TABLET (0.075MG) PEG (05:58)
[2017-08-12] MEDS: SODIUM CHLORIDE 0.9% INJ 10 ML SYR IV ×2 (05:59→17:47)
[2017-08-12 06:16] LABS: HEMATOCRIT 27.1 % (42.0-52.0); HEMOGLOBIN 8.3 g/dl (13.5-17.5); MEAN CORPUSCULAR HEMOGLOBIN 29.4 pg (27.0-33.0); MEAN CORPUSCULAR HGB CONC 30.6 g/dl (32.0-36.5); MEAN CORPUSCULAR VOLUME 96.1 fl (80.0-96.0); PLATELET COUNT, AUTOMATED 162 10^3/uL (150-450); RED BLOOD COUNT 2.82 10^6/uL (4.30-6.10); RED CELL DISTRIBUTION WIDTH 16.3 % (11.5-14.5); WHITE BLOOD COUNT 7.9 10^3/uL (4.0-10.0)
[2017-08-12 06:26] LABS: BEDSIDE GLUCOSE 334 MG/DL (80-115)
[2017-08-12 06:37] LABS: ANION GAP 8 MEQ/L (8-16); BLOOD UREA NITROGEN 70 MG/DL (7-18); CALCIUM LEVEL 9.1 MG/DL (8.8-10.2); CARBON DIOXIDE LEVEL 32 MEQ/L (21-32); CHLORIDE LEVEL 106 MEQ/L (98-107); CREATININE FOR GFR 2.16 MG/DL (0.70-1.30); GLOMERULAR FILTRATION RATE 32.4 (>49); GLUCOSE, FASTING 273 MG/DL (70-100); POTASSIUM SERUM 4.9 MEQ/L (3.5-5.1); SODIUM LEVEL 146 MEQ/L (136-145)
[2017-08-12] MEDS: ALBUTEROL SULFATE 2.5 MG/0.5 ML INH NEB SOLN NEB ×3 (08:00→23:35)
[2017-08-12] MEDS: FERROUS SULFATE 300MG/5ML UDC LIQUID PEG ×2 (08:51→21:28)
[2017-08-12] MEDS: PANTOPRAZOLE 40MG INJ (PROTONIX) (C9113) IV (08:52)
[2017-08-12] MEDS: ASCORBIC ACID 500 MG TAB PEG ×2 (08:52→21:29)
[2017-08-12] MEDS: ALLOPURINOL 100 MG TAB PEG ×2 (08:53→21:29)
[2017-08-12] MEDS: amLODIPine 5 MG TAB PO ×2 (08:54→21:31)
[2017-08-12] MEDS: CETIRIZINE (ZyrTEC) 10 MG TAB PEG (08:55)
[2017-08-12] MEDS: METOPROLOL TART 12.5 MG PER 1/2 TAB PEG ×2 (08:55→21:30)
[2017-08-12] MEDS: buPROPion 75 MG TAB PEG (08:55)
[2017-08-12] MEDS: FLUCONAZOLE 100 MG TAB PEG (08:55)
[2017-08-12] MEDS: FLUTICASONE PROP 0.05% NASAL SPRAY 16 GM (FLONASE) (08:56)
[2017-08-12 12:29] LABS: BEDSIDE GLUCOSE 253 MG/DL (80-115)
[2017-08-12] MEDS: ALPRAZolam 0.5 MG TAB PEG ×2 (12:30→21:29)
[2017-08-12 17:33] LABS: BEDSIDE GLUCOSE 262 MG/DL (80-115)
[2017-08-12] MEDS: TOBRAMYCIN SULF IV (17:46)
[2017-08-12] MEDS: D5W IV (17:46)
[2017-08-12 18:31] LABS: TOBRAMYCIN LEVEL TROUGH 1.9 MCG/ML (0.0-2.0)
[2017-08-12 20:07] LABS: TOBRAMYCIN LEVEL PEAK 6.4 MCG/ML (3.0-10.0)
[2017-08-12] MEDS: LEVEMIR (INSULIN DETEMIR) 1 UNITS/0.01ML SC (21:28)
[2017-08-12] MEDS: NYSTATIN 100,000 UNITS/GM TOPICAL PWD 15 GM TOP (21:29)
[2017-08-12] MEDS: BACLOFEN 10 MG TAB PEG (21:29)
[2017-08-12 23:59] LABS: BEDSIDE GLUCOSE 276 MG/DL (80-115)
[2017-08-13] MEDS: PIPERACILLIN/TAZOBACTAM SOD 2.25 GM in D5W MINI-BAG PLUS 50 ML IV ×4 (04:00→21:44)
[2017-08-13 05:17] LABS: BEDSIDE GLUCOSE 274 MG/DL (80-115)
[2017-08-13] MEDS: HumaLOG INSULIN (NovoLOG) PER UNIT SC ×4 (05:17→23:26)
[2017-08-13] MEDS: oxyBUTYnin 5 MG TAB PO ×3 (05:18→20:41)
[2017-08-13] MEDS: LEVOTHYROXINE 75MCG TABLET (0.075MG) PEG (05:18)
[2017-08-13] MEDS: SODIUM CHLORIDE 0.9% INJ 10 ML SYR IV ×2 (05:18→18:06)
[2017-08-13 05:43] LABS: HEMATOCRIT 30.5 % (42.0-52.0); HEMOGLOBIN 9.3 g/dl (13.5-17.5); MEAN CORPUSCULAR HEMOGLOBIN 28.9 pg (27.0-33.0); MEAN CORPUSCULAR HGB CONC 30.5 g/dl (32.0-36.5); MEAN CORPUSCULAR VOLUME 94.7 fl (80.0-96.0); PLATELET COUNT, AUTOMATED 183 10^3/uL (150-450); RED BLOOD COUNT 3.22 10^6/uL (4.30-6.10); RED CELL DISTRIBUTION WIDTH 16.2 % (11.5-14.5); WHITE BLOOD COUNT 12.7 10^3/uL (4.0-10.0)
[2017-08-13 06:05] LABS: ANION GAP 8 MEQ/L (8-16); BLOOD UREA NITROGEN 63 MG/DL (7-18); CALCIUM LEVEL 9.4 MG/DL (8.8-10.2); CARBON DIOXIDE LEVEL 31 MEQ/L (21-32); CHLORIDE LEVEL 105 MEQ/L (98-107); CREATININE FOR GFR 2.08 MG/DL (0.70-1.30); GLOMERULAR FILTRATION RATE 33.9 (>49); GLUCOSE, FASTING 270 MG/DL (70-100); SODIUM LEVEL 144 MEQ/L (136-145)
[2017-08-13 06:06] LABS: POTASSIUM SERUM 5.4 MEQ/L (3.5-5.1)
[2017-08-13] MEDS: ALBUTEROL SULFATE 2.5 MG/0.5 ML INH NEB SOLN NEB ×3 (07:23→23:11)
[2017-08-13] MEDS: ALPRAZolam 0.5 MG TAB PEG ×2 (07:31→20:51)
[2017-08-13] MEDS: NORCO, ANEXSIA 5/325MG TABLET (HYDROcodone/ACETAMINOPHEN) PEG (07:31)
[2017-08-13] MEDS: PANTOPRAZOLE 40MG INJ (PROTONIX) (C9113) IV (09:17)
[2017-08-13] MEDS: buPROPion 75 MG TAB PEG (09:18)
[2017-08-13] MEDS: amLODIPine 5 MG TAB PO ×2 (09:18→20:42)
[2017-08-13] MEDS: FLUCONAZOLE 100 MG TAB PEG (09:18)
[2017-08-13] MEDS: CETIRIZINE (ZyrTEC) 10 MG TAB PEG (09:19)
[2017-08-13] MEDS: METOPROLOL TART 12.5 MG PER 1/2 TAB PEG ×2 (09:19→20:41)
[2017-08-13] MEDS: FERROUS SULFATE 300MG/5ML UDC LIQUID PEG ×2 (09:19→20:40)
[2017-08-13] MEDS: ASCORBIC ACID 500 MG TAB PEG (09:19)
[2017-08-13] MEDS: NYSTATIN 100,000 UNITS/GM TOPICAL PWD 15 GM TOP ×2 (09:20→20:42)
[2017-08-13] MEDS: FLUTICASONE PROP 0.05% NASAL SPRAY 16 GM (FLONASE) (09:20)
[2017-08-13] MEDS: ALLOPURINOL 100 MG TAB PEG ×2 (09:22→20:42)
[2017-08-13 12:06] LABS: BEDSIDE GLUCOSE 268 MG/DL (80-115)
[2017-08-13] MEDS: ACETAMINOPHEN 325 MG/10.15 ML UDC GT (16:34)
[2017-08-13 18:08] LABS: BEDSIDE GLUCOSE 261 MG/DL (80-115)
[2017-08-13] MEDS: BACLOFEN 10 MG TAB PEG (20:42)
[2017-08-13] MEDS: LEVEMIR (INSULIN DETEMIR) 1 UNITS/0.01ML SC (20:44)
[2017-08-13 23:29] LABS: BEDSIDE GLUCOSE 249 MG/DL (80-115)
[2017-08-14] MEDS: ALPRAZolam 0.5 MG TAB PEG ×2 (02:03→21:28)
[2017-08-14] MEDS: NORCO, ANEXSIA 5/325MG TABLET (HYDROcodone/ACETAMINOPHEN) PEG ×2 (02:03→19:39)
[2017-08-14] MEDS: PIPERACILLIN/TAZOBACTAM SOD 2.25 GM in D5W MINI-BAG PLUS 50 ML IV ×4 (04:02→21:27)
[2017-08-14 04:41] LABS: HEMATOCRIT 28.7 % (42.0-52.0); HEMOGLOBIN 8.5 g/dl (13.5-17.5); MEAN CORPUSCULAR HEMOGLOBIN 28.7 pg (27.0-33.0); MEAN CORPUSCULAR HGB CONC 29.6 g/dl (32.0-36.5); PLATELET COUNT, AUTOMATED 172 10^3/uL (150-450); RED BLOOD COUNT 2.96 10^6/uL (4.30-6.10); WHITE BLOOD COUNT 12.8 10^3/uL (4.0-10.0)
[2017-08-14 04:57] LABS: ANION GAP 6 MEQ/L (8-16); BLOOD UREA NITROGEN 63 MG/DL (7-18); CALCIUM LEVEL 9.9 MG/DL (8.8-10.2); CARBON DIOXIDE LEVEL 32 MEQ/L (21-32); CHLORIDE LEVEL 105 MEQ/L (98-107); CREATININE FOR GFR 2.11 MG/DL (0.70-1.30); GLOMERULAR FILTRATION RATE 33.3 (>49); GLUCOSE, FASTING 224 MG/DL (70-100); POTASSIUM SERUM 4.8 MEQ/L (3.5-5.1); SODIUM LEVEL 143 MEQ/L (136-145)
[2017-08-14] MEDS: oxyBUTYnin 5 MG TAB PO ×3 (05:13→21:27)
[2017-08-14] MEDS: LEVOTHYROXINE 75MCG TABLET (0.075MG) PEG (05:13)
[2017-08-14] MEDS: HumaLOG INSULIN (NovoLOG) PER UNIT SC ×4 (05:14→23:46)
[2017-08-14] MEDS: SODIUM CHLORIDE 0.9% INJ 10 ML SYR IV ×2 (05:14→17:48)
[2017-08-14] MEDS: ALBUTEROL SULFATE 2.5 MG/0.5 ML INH NEB SOLN NEB ×3 (07:25→23:29)
[2017-08-14] MEDS: D5W IV (07:58)
[2017-08-14] MEDS: TOBRAMYCIN SULF IV (07:58)
[2017-08-14] MEDS ORDERED: D5W IV (08:00)
[2017-08-14] MEDS ORDERED: TOBRAMYCIN SULF IV (08:00)
[2017-08-14] MEDS: METOPROLOL TART 12.5 MG PER 1/2 TAB PEG ×2 (08:58→21:29)
[2017-08-14] MEDS: FERROUS SULFATE 300MG/5ML UDC LIQUID PEG ×2 (08:59→21:26)
[2017-08-14] MEDS: ALLOPURINOL 100 MG TAB PEG ×2 (09:01→21:26)
[2017-08-14] MEDS: PANTOPRAZOLE 40MG INJ (PROTONIX) (C9113) IV (09:01)
[2017-08-14] MEDS: ASCORBIC ACID 500 MG TAB PEG (09:02)
[2017-08-14] MEDS: amLODIPine 5 MG TAB PO ×2 (09:02→21:00)
[2017-08-14] MEDS: FLUCONAZOLE 100 MG TAB PEG (09:02)
[2017-08-14] MEDS: FLUTICASONE PROP 0.05% NASAL SPRAY 16 GM (FLONASE) (09:03)
[2017-08-14] MEDS: NYSTATIN 100,000 UNITS/GM TOPICAL PWD 15 GM TOP ×2 (09:03→21:25)
[2017-08-14] MEDS: CETIRIZINE (ZyrTEC) 10 MG TAB PEG (09:03)
[2017-08-14] MEDS: buPROPion 75 MG TAB PEG (09:03)
[2017-08-14 12:03] LABS: BEDSIDE GLUCOSE 255 MG/DL (80-115)
[2017-08-14 17:47] LABS: BEDSIDE GLUCOSE 209 MG/DL (80-115)
[2017-08-14] MEDS: BACLOFEN 10 MG TAB PEG (21:26)
[2017-08-14] MEDS: LEVEMIR (INSULIN DETEMIR) 1 UNITS/0.01ML SC (21:29)
[2017-08-14 22:05] LABS: BEDSIDE GLUCOSE 207 MG/DL (80-115)
[2017-08-15 02:55] LABS: BEDSIDE GLUCOSE 179 MG/DL (80-115)
[2017-08-15] MEDS: PIPERACILLIN/TAZOBACTAM SOD 2.25 GM in D5W MINI-BAG PLUS 50 ML IV ×4 (04:48→22:20)
[2017-08-15] MEDS: SODIUM CHLORIDE 0.9% INJ 10 ML SYR IV ×3 (05:34→18:00)
[2017-08-15] MEDS: oxyBUTYnin 5 MG TAB PO ×4 (05:34→22:18)
[2017-08-15] MEDS: LEVOTHYROXINE 75MCG TABLET (0.075MG) PEG ×2 (05:34→06:00)
[2017-08-15] MEDS: NORCO, ANEXSIA 5/325MG TABLET (HYDROcodone/ACETAMINOPHEN) PEG (05:37)
[2017-08-15 06:10] LABS: HEMATOCRIT 28.6 % (42.0-52.0); HEMOGLOBIN 8.9 g/dl (13.5-17.5); MEAN CORPUSCULAR HEMOGLOBIN 29.8 pg (27.0-33.0); MEAN CORPUSCULAR HGB CONC 31.1 g/dl (32.0-36.5); MEAN CORPUSCULAR VOLUME 95.7 fl (80.0-96.0); PLATELET COUNT, AUTOMATED 156 10^3/uL (150-450); RED BLOOD COUNT 2.99 10^6/uL (4.30-6.10); RED CELL DISTRIBUTION WIDTH 15.9 % (11.5-14.5); WHITE BLOOD COUNT 9.8 10^3/uL (4.0-10.0)
[2017-08-15 06:34] LABS: ANION GAP 5 MEQ/L (8-16); BLOOD UREA NITROGEN 68 MG/DL (7-18); CARBON DIOXIDE LEVEL 33 MEQ/L (21-32); CHLORIDE LEVEL 103 MEQ/L (98-107); CREATININE FOR GFR 2.01 MG/DL (0.70-1.30); GLOMERULAR FILTRATION RATE 35.2 (>49); GLUCOSE, FASTING 211 MG/DL (70-100); POTASSIUM SERUM 4.2 MEQ/L (3.5-5.1); SODIUM LEVEL 141 MEQ/L (136-145)
[2017-08-15] MEDS: HumaLOG INSULIN (NovoLOG) PER UNIT SC ×3 (06:55→17:29)
[2017-08-15] MEDS: ALBUTEROL SULFATE 2.5 MG/0.5 ML INH NEB SOLN NEB ×2 (07:05→16:06)
[2017-08-15] MEDS: PANTOPRAZOLE 40MG INJ (PROTONIX) (C9113) IV (08:49)
[2017-08-15] MEDS: NYSTATIN 100,000 UNITS/GM TOPICAL PWD 15 GM TOP ×2 (08:52→22:19)
[2017-08-15] MEDS: MORPHINE 4 MG/ML 1ML VIAL/SYRINGE (J2270) IV ×5 (08:52→20:40)
[2017-08-15] MEDS: FLUTICASONE PROP 0.05% NASAL SPRAY 16 GM (FLONASE) (08:52)
[2017-08-15] MEDS: ALLOPURINOL 100 MG TAB PEG ×2 (09:00→22:19)
[2017-08-15] MEDS: ASCORBIC ACID 500 MG TAB PEG (09:00)
[2017-08-15] MEDS: buPROPion 75 MG TAB PEG (09:00)
[2017-08-15] MEDS: FERROUS SULFATE 300MG/5ML UDC LIQUID PEG ×2 (09:00→22:20)
[2017-08-15] MEDS: amLODIPine 5 MG TAB PO ×2 (09:00→21:00)
[2017-08-15] MEDS: FLUCONAZOLE 100 MG TAB PEG (09:00)
[2017-08-15] MEDS: CETIRIZINE (ZyrTEC) 10 MG TAB PEG (09:00)
[2017-08-15] MEDS: METOPROLOL TART 12.5 MG PER 1/2 TAB PEG ×2 (09:00→22:18)
[2017-08-15 12:01] LABS: BEDSIDE GLUCOSE 125 MG/DL (80-115)
[2017-08-15] MEDS: D5W/0.45% SODIUM CHLORIDE 1,000 ML IV (12:19)
[2017-08-15] MEDS: FLUCONAZOLE 200 MG in APPROPRIATE DILUENT 1 EA IV (13:59)
[2017-08-15 17:34] LABS: BEDSIDE GLUCOSE 159 MG/DL (80-115)
[2017-08-15] MEDS: ALPRAZolam 0.5 MG TAB PEG (19:47)
[2017-08-15] MEDS: LORazepam 2 MG/ML VIAL (J2060) IV (19:55)
[2017-08-15] MEDS: LEVEMIR (INSULIN DETEMIR) 1 UNITS/0.01ML SC (22:19)
[2017-08-15] MEDS: BACLOFEN 10 MG TAB PEG (22:20)
[2017-08-16] MEDS: ALBUTEROL SULFATE 2.5 MG/0.5 ML INH NEB SOLN NEB ×5 (00:08→23:27)
[2017-08-16] MEDS: NORCO, ANEXSIA 5/325MG TABLET (HYDROcodone/ACETAMINOPHEN) PEG ×2 (00:11→06:35)
[2017-08-16] MEDS: HumaLOG INSULIN (NovoLOG) PER UNIT SC ×5 (00:11→23:25)
[2017-08-16 00:13] LABS: BEDSIDE GLUCOSE 426 MG/DL (80-115)
[2017-08-16 00:13] LABS: BEDSIDE GLUCOSE 214 MG/DL (80-115)
[2017-08-16] MEDS: PIPERACILLIN/TAZOBACTAM SOD 2.25 GM in D5W MINI-BAG PLUS 50 ML IV ×3 (04:20→16:31)
[2017-08-16] MEDS: LEVOTHYROXINE 75MCG TABLET (0.075MG) PEG (05:21)
[2017-08-16] MEDS: oxyBUTYnin 5 MG TAB PO ×3 (05:21→23:25)
[2017-08-16] MEDS: SODIUM CHLORIDE 0.9% INJ 10 ML SYR IV ×2 (05:22→18:02)
[2017-08-16 06:53] LABS: HEMATOCRIT 31.8 % (42.0-52.0); HEMOGLOBIN 9.9 g/dl (13.5-17.5); MEAN CORPUSCULAR HEMOGLOBIN 29.6 pg (27.0-33.0); MEAN CORPUSCULAR HGB CONC 31.1 g/dl (32.0-36.5); MEAN CORPUSCULAR VOLUME 94.9 fl (80.0-96.0); PLATELET COUNT, AUTOMATED 174 10^3/uL (150-450); RED BLOOD COUNT 3.35 10^6/uL (4.30-6.10); RED CELL DISTRIBUTION WIDTH 15.9 % (11.5-14.5); WHITE BLOOD COUNT 19.6 10^3/uL (4.0-10.0)
[2017-08-16 06:57] LABS: BEDSIDE GLUCOSE 188 MG/DL (80-115)
[2017-08-16 07:15] LABS: ANION GAP 8 MEQ/L (8-16); BLOOD UREA NITROGEN 64 MG/DL (7-18); CARBON DIOXIDE LEVEL 30 MEQ/L (21-32); CHLORIDE LEVEL 103 MEQ/L (98-107); CREATININE FOR GFR 1.92 MG/DL (0.70-1.30); GLOMERULAR FILTRATION RATE 37.2 (>49); GLUCOSE, FASTING 179 MG/DL (70-100); POTASSIUM SERUM 4.2 MEQ/L (3.5-5.1); SODIUM LEVEL 141 MEQ/L (136-145)
[2017-08-16 07:17] LABS: TOBRAMYCIN LEVEL TROUGH 0.9 MCG/ML (0.0-2.0)
[2017-08-16] MEDS: TOBRAMYCIN SULF IV (08:14)
[2017-08-16] MEDS: FERROUS SULFATE 300MG/5ML UDC LIQUID PEG ×2 (08:14→20:07)
[2017-08-16] MEDS: D5W IV (08:14)
[2017-08-16] MEDS: PANTOPRAZOLE 40MG INJ (PROTONIX) (C9113) IV (08:15)
[2017-08-16] MEDS: CETIRIZINE (ZyrTEC) 10 MG TAB PEG (08:15)
[2017-08-16] MEDS: METOPROLOL TART 12.5 MG PER 1/2 TAB PEG ×2 (08:15→20:03)
[2017-08-16] MEDS: buPROPion 75 MG TAB PEG (08:15)
[2017-08-16] MEDS: amLODIPine 5 MG TAB PO ×2 (08:15→20:04)
[2017-08-16] MEDS: ASCORBIC ACID 500 MG TAB PEG (08:15)
[2017-08-16] MEDS: ALLOPURINOL 100 MG TAB PEG ×2 (08:15→20:07)
[2017-08-16] MEDS: FLUTICASONE PROP 0.05% NASAL SPRAY 16 GM (FLONASE) (08:16)
[2017-08-16] MEDS: NYSTATIN 100,000 UNITS/GM TOPICAL PWD 15 GM TOP ×2 (08:16→20:08)
[2017-08-16] MEDS: MORPHINE 4 MG/ML 1ML VIAL/SYRINGE (J2270) IV (09:22)
[2017-08-16 10:00] LABS: TOBRAMYCIN LEVEL PEAK 9.2 MCG/ML (3.0-10.0)
[2017-08-16 12:00] LABS: BEDSIDE GLUCOSE 186 MG/DL (80-115)
[2017-08-16] MEDS: RILUZOLE 50 MG NG ×2 (12:05→20:06)
[2017-08-16] MEDS: FLUCONAZOLE 200 MG in APPROPRIATE DILUENT 1 EA IV (12:05)
[2017-08-16] MEDS: GABAPENTIN 100 MG CAP PEG ×3 (12:05→20:07)
[2017-08-16] MEDS: MEROPENEM INJ 1 GM in APPROPRIATE DILUENT 1 EA IV (18:02)
[2017-08-16 18:59] LABS: BEDSIDE GLUCOSE 121 MG/DL (80-115)
[2017-08-16] MEDS: ALPRAZolam 0.5 MG TAB PEG (20:04)
[2017-08-16] MEDS: BACLOFEN 10 MG TAB PEG (20:07)
[2017-08-16] MEDS: LEVEMIR (INSULIN DETEMIR) 1 UNITS/0.01ML SC (20:07)
[2017-08-16 23:27] LABS: BEDSIDE GLUCOSE 134 MG/DL (80-115)
[2017-08-17] MEDS: ACETAMINOPHEN 325 MG/10.15 ML UDC GT (04:46)
[2017-08-17 05:25] LABS: BEDSIDE GLUCOSE 162 MG/DL (80-115)
[2017-08-17 05:27] LABS: HEMATOCRIT 26.9 % (42.0-52.0); HEMOGLOBIN 8.4 g/dl (13.5-17.5); MEAN CORPUSCULAR HEMOGLOBIN 29.8 pg (27.0-33.0); MEAN CORPUSCULAR HGB CONC 31.2 g/dl (32.0-36.5); MEAN CORPUSCULAR VOLUME 95.4 fl (80.0-96.0); PLATELET COUNT, AUTOMATED 160 10^3/uL (150-450); RED BLOOD COUNT 2.82 10^6/uL (4.30-6.10); RED CELL DISTRIBUTION WIDTH 15.8 % (11.5-14.5); WHITE BLOOD COUNT 15.8 10^3/uL (4.0-10.0)
[2017-08-17 05:44] LABS: ANION GAP 7 MEQ/L (8-16); BLOOD UREA NITROGEN 59 MG/DL (7-18); CALCIUM LEVEL 8.5 MG/DL (8.8-10.2); CARBON DIOXIDE LEVEL 28 MEQ/L (21-32); CHLORIDE LEVEL 110 MEQ/L (98-107); CREATININE FOR GFR 1.74 MG/DL (0.70-1.30); GLOMERULAR FILTRATION RATE 41.6 (>49); GLUCOSE, FASTING 124 MG/DL (70-100); POTASSIUM SERUM 3.4 MEQ/L (3.5-5.1); SODIUM LEVEL 145 MEQ/L (136-145)
[2017-08-17] MEDS: oxyBUTYnin 5 MG TAB PO ×3 (05:45→21:06)
[2017-08-17] MEDS: LEVOTHYROXINE 75MCG TABLET (0.075MG) PEG (05:45)
[2017-08-17] MEDS: HumaLOG INSULIN (NovoLOG) PER UNIT SC ×4 (05:45→23:37)
[2017-08-17] MEDS: MEROPENEM INJ 1 GM in APPROPRIATE DILUENT 1 EA IV ×2 (05:46→18:22)
[2017-08-17] MEDS: SODIUM CHLORIDE 0.9% INJ 10 ML SYR IV ×2 (05:47→18:22)
[2017-08-17] MEDS: ALBUTEROL SULFATE 2.5 MG/0.5 ML INH NEB SOLN NEB ×3 (08:31→23:16)
[2017-08-17] MEDS: GASTROGRAFIN SOLUTION 30ML PO ×3 (10:17→11:45)
[2017-08-17] MEDS: FERROUS SULFATE 300MG/5ML UDC LIQUID PEG ×2 (10:17→20:32)
[2017-08-17] MEDS: MORPHINE 4 MG/ML 1ML VIAL/SYRINGE (J2270) IV ×2 (10:18→15:57)
[2017-08-17] MEDS: PANTOPRAZOLE 40MG INJ (PROTONIX) (C9113) IV (10:18)
[2017-08-17] MEDS: ASCORBIC ACID 500 MG TAB PEG (10:19)
[2017-08-17] MEDS: METOPROLOL TART 12.5 MG PER 1/2 TAB PEG ×2 (10:19→20:33)
[2017-08-17] MEDS: GABAPENTIN 100 MG CAP PEG ×3 (10:19→20:32)
[2017-08-17] MEDS: RILUZOLE 50 MG NG ×2 (10:19→20:32)
[2017-08-17] MEDS: ALLOPURINOL 100 MG TAB PEG ×2 (10:20→20:34)
[2017-08-17] MEDS: POTASSIUM CHLORIDE 10% LIQ 20 MEQ/15 ML UDC PEG (10:20)
[2017-08-17] MEDS: CETIRIZINE (ZyrTEC) 10 MG TAB PEG (10:20)
[2017-08-17] MEDS: amLODIPine 5 MG TAB PO ×2 (10:20→20:34)
[2017-08-17] MEDS: buPROPion 75 MG TAB PEG (10:20)
[2017-08-17] MEDS: FLUTICASONE PROP 0.05% NASAL SPRAY 16 GM (FLONASE) (10:21)
[2017-08-17] MEDS: NYSTATIN 100,000 UNITS/GM TOPICAL PWD 15 GM TOP ×2 (10:21→20:33)
[2017-08-17 13:14] LABS: BEDSIDE GLUCOSE 123 MG/DL (80-115)
[2017-08-17] MEDS: ONDANSETRON 4MG/2ML VIAL (J2405) IV (14:21)
[2017-08-17] MEDS: BISACODYL 10 MG SUPP PR (14:22)
[2017-08-17 18:06] LABS: BEDSIDE GLUCOSE 113 MG/DL (80-115)
[2017-08-17] MEDS: BACLOFEN 10 MG TAB PEG (20:33)
[2017-08-17] MEDS: ALPRAZolam 0.5 MG TAB PEG (20:33)
[2017-08-17] MEDS: LEVEMIR (INSULIN DETEMIR) 1 UNITS/0.01ML SC (20:35)
[2017-08-17 23:38] LABS: BEDSIDE GLUCOSE 198 MG/DL (80-115)
[2017-08-18 04:21] LABS: HEMATOCRIT 29.9 % (42.0-52.0); HEMOGLOBIN 9.3 g/dl (13.5-17.5); MEAN CORPUSCULAR HEMOGLOBIN 29.3 pg (27.0-33.0); MEAN CORPUSCULAR HGB CONC 31.1 g/dl (32.0-36.5); MEAN CORPUSCULAR VOLUME 94.3 fl (80.0-96.0); PLATELET COUNT, AUTOMATED 171 10^3/uL (150-450); RED BLOOD COUNT 3.17 10^6/uL (4.30-6.10); RED CELL DISTRIBUTION WIDTH 15.8 % (11.5-14.5); WHITE BLOOD COUNT 17.5 10^3/uL (4.0-10.0)
[2017-08-18 04:46] LABS: ANION GAP 6 MEQ/L (8-16); BLOOD UREA NITROGEN 68 MG/DL (7-18); CALCIUM LEVEL 10.6 MG/DL (8.8-10.2); CARBON DIOXIDE LEVEL 30 MEQ/L (21-32); CHLORIDE LEVEL 105 MEQ/L (98-107); CREATININE FOR GFR 2.07 MG/DL (0.70-1.30); GLOMERULAR FILTRATION RATE 34.1 (>49); GLUCOSE, FASTING 149 MG/DL (70-100); POTASSIUM SERUM 3.9 MEQ/L (3.5-5.1); SODIUM LEVEL 141 MEQ/L (136-145)
[2017-08-18] MEDS: MEROPENEM INJ 1 GM in APPROPRIATE DILUENT 1 EA IV ×2 (05:20→17:41)
[2017-08-18] MEDS: LEVOTHYROXINE 75MCG TABLET (0.075MG) PEG (05:20)
[2017-08-18] MEDS: oxyBUTYnin 5 MG TAB PO ×3 (05:20→20:25)
[2017-08-18] MEDS: SODIUM CHLORIDE 0.9% INJ 10 ML SYR IV ×2 (05:21→17:42)
[2017-08-18] MEDS: HumaLOG INSULIN (NovoLOG) PER UNIT SC ×3 (05:22→17:41)
[2017-08-18] MEDS: MORPHINE 4 MG/ML 1ML VIAL/SYRINGE (J2270) IV ×4 (08:19→21:14)
[2017-08-18] MEDS: ALBUTEROL SULFATE 2.5 MG/0.5 ML INH NEB SOLN NEB ×3 (08:23→23:21)
[2017-08-18] MEDS: KCL 20MEQ IN D5/0.45NS 1000ML 1,000 ML IV (11:38)
[2017-08-18] MEDS: NYSTATIN 100,000 UNITS/GM TOPICAL PWD 15 GM TOP ×2 (11:44→20:45)
[2017-08-18] MEDS: FLUTICASONE PROP 0.05% NASAL SPRAY 16 GM (FLONASE) (11:44)
[2017-08-18] MEDS: GABAPENTIN 100 MG CAP PEG ×3 (12:36→20:23)
[2017-08-18] MEDS: ASCORBIC ACID 500 MG TAB PEG (12:36)
[2017-08-18] MEDS: ALLOPURINOL 100 MG TAB PEG ×2 (12:37→20:24)
[2017-08-18] MEDS: buPROPion 75 MG TAB PEG (12:38)
[2017-08-18] MEDS: METOPROLOL TART 12.5 MG PER 1/2 TAB PEG ×2 (12:38→20:18)
[2017-08-18] MEDS: amLODIPine 5 MG TAB PO ×2 (12:38→20:24)
[2017-08-18] MEDS: FERROUS SULFATE 300MG/5ML UDC LIQUID PEG ×2 (12:39→20:18)
[2017-08-18] MEDS: RILUZOLE 50 MG NG (12:39)
[2017-08-18] MEDS: CETIRIZINE (ZyrTEC) 10 MG TAB PEG (12:39)
[2017-08-18 12:49] LABS: BEDSIDE GLUCOSE 102 MG/DL (80-115)
[2017-08-18] MEDS: PANTOPRAZOLE 40MG INJ (PROTONIX) (C9113) IV (12:49)
[2017-08-18] MEDS: HEPARIN SOD (PORCINE) 5000 UNITS/ML VIAL SQ ×2 (18:04→20:45)
[2017-08-18 19:00] LABS: CALCIUM OXALATE CRYSTALS RFX MODERATE; KETONE, URINE AUTO RFX NEGATIVE (NEGATIVE); MUCUS, URINE RFX SMALL (NEGATIVE); NITRITE, URINE AUTO RFX NEGATIVE (NEGATIVE); RBC, URINE AUTO RFX 17 /HPF (0-3); SPECIFIC GRAVITY UR AUTO RFX 1.012 (1.002-1.035); SQUAM EPITHELIAL CELL UR AURFX 1 /HPF (0-6)
[2017-08-18 19:01] LABS: LEUKOCYTE ESTERASE UR AUTO RFX 3+ (NEGATIVE); WBC, URINE AUTO RFX TNTC /HPF (0-3)
[2017-08-18 19:05] LABS: YEAST LIKE CELL URINE AUTO RFX SMALL
[2017-08-18] MEDS: BACLOFEN 10 MG TAB PEG (20:18)
[2017-08-18 20:40] LABS: BEDSIDE GLUCOSE 127 MG/DL (80-115)
[2017-08-18] MEDS: ALPRAZolam 0.5 MG TAB PEG (20:44)
[2017-08-18] MEDS: LEVEMIR (INSULIN DETEMIR) 1 UNITS/0.01ML SC (20:44)
[2017-08-19 00:11] LABS: BEDSIDE GLUCOSE 123 MG/DL (80-115)
[2017-08-19] MEDS: KCL 20MEQ IN D5/0.45NS 1000ML 1,000 ML IV (03:55)
[2017-08-19 05:13] LABS: HEMATOCRIT 25.4 % (42.0-52.0); HEMOGLOBIN 7.9 g/dl (13.5-17.5); MEAN CORPUSCULAR HGB CONC 31.1 g/dl (32.0-36.5); MEAN CORPUSCULAR VOLUME 93.4 fl (80.0-96.0); PLATELET COUNT, AUTOMATED 174 10^3/uL (150-450); RED BLOOD COUNT 2.72 10^6/uL (4.30-6.10); RED CELL DISTRIBUTION WIDTH 15.8 % (11.5-14.5)
[2017-08-19 05:31] LABS: ANION GAP 7 MEQ/L (8-16); BLOOD UREA NITROGEN 68 MG/DL (7-18); CALCIUM LEVEL 9.5 MG/DL (8.8-10.2); CARBON DIOXIDE LEVEL 29 MEQ/L (21-32); CHLORIDE LEVEL 108 MEQ/L (98-107); CREATININE FOR GFR 2.07 MG/DL (0.70-1.30); GLOMERULAR FILTRATION RATE 34.1 (>49); GLUCOSE, FASTING 103 MG/DL (70-100); POTASSIUM SERUM 4.3 MEQ/L (3.5-5.1); SODIUM LEVEL 144 MEQ/L (136-145)
[2017-08-19] MEDS: oxyBUTYnin 5 MG TAB PO ×3 (05:31→22:28)
[2017-08-19] MEDS: LEVOTHYROXINE 75MCG TABLET (0.075MG) PEG (05:31)
[2017-08-19] MEDS: HumaLOG INSULIN (NovoLOG) PER UNIT SC ×4 (05:58→17:57)
[2017-08-19] MEDS: SODIUM CHLORIDE 0.9% INJ 10 ML SYR IV ×2 (06:00→17:11)
[2017-08-19] MEDS: HEPARIN SOD (PORCINE) 5000 UNITS/ML VIAL SQ ×3 (06:00→22:28)
[2017-08-19] MEDS: MEROPENEM INJ 1 GM in APPROPRIATE DILUENT 1 EA IV ×2 (06:12→17:11)
[2017-08-19] MEDS: MORPHINE 4 MG/ML 1ML VIAL/SYRINGE (J2270) IV ×4 (07:51→18:23)
[2017-08-19] MEDS: FERROUS SULFATE 300MG/5ML UDC LIQUID PEG ×2 (07:57→20:44)
[2017-08-19] MEDS: buPROPion 75 MG TAB PEG (07:59)
[2017-08-19] MEDS: ALLOPURINOL 100 MG TAB PEG ×2 (07:59→20:44)
[2017-08-19] MEDS: GABAPENTIN 100 MG CAP PEG ×3 (07:59→20:43)
[2017-08-19] MEDS: ASCORBIC ACID 500 MG TAB PEG (07:59)
[2017-08-19] MEDS: amLODIPine 5 MG TAB PO ×2 (08:00→22:28)
[2017-08-19] MEDS: METOPROLOL TART 12.5 MG PER 1/2 TAB PEG ×2 (08:00→20:44)
[2017-08-19] MEDS: CETIRIZINE (ZyrTEC) 10 MG TAB PEG (08:00)
[2017-08-19] MEDS: PANTOPRAZOLE 40MG INJ (PROTONIX) (C9113) IV (08:01)
[2017-08-19] MEDS: FLUTICASONE PROP 0.05% NASAL SPRAY 16 GM (FLONASE) (08:01)
[2017-08-19] MEDS: NYSTATIN 100,000 UNITS/GM TOPICAL PWD 15 GM TOP ×2 (08:02→20:46)
[2017-08-19] MEDS: ALBUTEROL SULFATE 2.5 MG/0.5 ML INH NEB SOLN NEB ×3 (08:06→23:43)
[2017-08-19] MEDS: ACETAMINOPHEN 650 MG SUPP PR (09:26)
[2017-08-19 11:53] LABS: BEDSIDE GLUCOSE 94 MG/DL (80-115)
[2017-08-19 13:03] LABS: IMMEDIATE SPIN CROSSMATCH 1 1
[2017-08-19] MEDS: KCL 10MEQ IN D5/0.45NS 1000ML 1,000 ML IV (15:12)
[2017-08-19 18:31] LABS: HEMATOCRIT 31.2 % (42.0-52.0); HEMOGLOBIN 9.7 g/dl (13.5-17.5)
[2017-08-19 18:37] LABS: BEDSIDE GLUCOSE 93 MG/DL (80-115)
[2017-08-19] MEDS: ONDANSETRON 4MG/2ML VIAL (J2405) IV (19:20)
[2017-08-19] MEDS: BACLOFEN 10 MG TAB PEG (20:44)
[2017-08-19] MEDS: ALPRAZolam 0.5 MG TAB PEG (20:44)
[2017-08-19] MEDS: LEVEMIR (INSULIN DETEMIR) 1 UNITS/0.01ML SC (20:46)
[2017-08-20 00:19] LABS: BEDSIDE GLUCOSE 148 MG/DL (80-115)
[2017-08-20] MEDS: KCL 10MEQ IN D5/0.45NS 1000ML 1,000 ML IV ×3 (00:55→20:38)
[2017-08-20 05:37] LABS: HEMATOCRIT 31.9 % (42.0-52.0); HEMOGLOBIN 9.9 g/dl (13.5-17.5); MEAN CORPUSCULAR HEMOGLOBIN 29.4 pg (27.0-33.0); MEAN CORPUSCULAR VOLUME 94.7 fl (80.0-96.0); PLATELET COUNT, AUTOMATED 185 10^3/uL (150-450); RED BLOOD COUNT 3.37 10^6/uL (4.30-6.10); RED CELL DISTRIBUTION WIDTH 15.7 % (11.5-14.5); WHITE BLOOD COUNT 11.2 10^3/uL (4.0-10.0)
[2017-08-20] MEDS: HumaLOG INSULIN (NovoLOG) PER UNIT SC ×4 (06:00→17:20)
[2017-08-20 06:21] LABS: ANION GAP 7 MEQ/L (8-16); BLOOD UREA NITROGEN 62 MG/DL (7-18); CALCIUM LEVEL 9.7 MG/DL (8.8-10.2); CARBON DIOXIDE LEVEL 28 MEQ/L (21-32); CHLORIDE LEVEL 106 MEQ/L (98-107); CREATININE FOR GFR 1.83 MG/DL (0.70-1.30); GLOMERULAR FILTRATION RATE 39.3 (>49); GLUCOSE, FASTING 172 MG/DL (70-100); POTASSIUM SERUM 4.7 MEQ/L (3.5-5.1); SODIUM LEVEL 141 MEQ/L (136-145)
[2017-08-20] MEDS: LEVOTHYROXINE 75MCG TABLET (0.075MG) PEG (06:34)
[2017-08-20] MEDS: oxyBUTYnin 5 MG TAB PO (06:34)
[2017-08-20] MEDS: MEROPENEM INJ 1 GM in APPROPRIATE DILUENT 1 EA IV ×2 (06:35→17:21)
[2017-08-20] MEDS: HEPARIN SOD (PORCINE) 5000 UNITS/ML VIAL SQ ×3 (06:35→20:37)
[2017-08-20] MEDS: ALBUTEROL SULFATE 2.5 MG/0.5 ML INH NEB SOLN NEB ×2 (07:23→15:09)
[2017-08-20] MEDS: SODIUM CHLORIDE 0.9% INJ 10 ML SYR IV ×2 (09:00→17:44)
[2017-08-20] MEDS: PANTOPRAZOLE 40MG INJ (PROTONIX) (C9113) IV (09:18)
[2017-08-20] MEDS: METOPROLOL TART 12.5 MG PER 1/2 TAB PEG ×2 (09:19→20:34)
[2017-08-20] MEDS: GABAPENTIN 100 MG CAP PEG ×3 (09:19→20:35)
[2017-08-20] MEDS: FERROUS SULFATE 300MG/5ML UDC LIQUID PEG ×2 (09:19→20:36)
[2017-08-20] MEDS: ASCORBIC ACID 500 MG TAB PEG (09:20)
[2017-08-20] MEDS: ALLOPURINOL 100 MG TAB PEG ×2 (09:20→20:36)
[2017-08-20] MEDS: buPROPion 75 MG TAB PEG (09:20)
[2017-08-20] MEDS: CETIRIZINE (ZyrTEC) 10 MG TAB PEG (09:20)
[2017-08-20] MEDS: amLODIPine 5 MG TAB PEG ×2 (09:20→20:35)
[2017-08-20] MEDS: FLUTICASONE PROP 0.05% NASAL SPRAY 16 GM (FLONASE) (09:21)
[2017-08-20] MEDS: NYSTATIN 100,000 UNITS/GM TOPICAL PWD 15 GM TOP ×2 (09:22→20:37)
[2017-08-20] MEDS: MORPHINE 4 MG/ML 1ML VIAL/SYRINGE (J2270) IV ×2 (10:52→20:56)
[2017-08-20 12:11] LABS: BEDSIDE GLUCOSE 211 MG/DL (80-115)
[2017-08-20] MEDS: oxyBUTYnin 5 MG TAB PEG ×2 (13:00→20:36)
[2017-08-20] MEDS: NORCO, ANEXSIA 5/325MG TABLET (HYDROcodone/ACETAMINOPHEN) PEG ×2 (13:03→13:33)
[2017-08-20 17:22] LABS: BEDSIDE GLUCOSE 155 MG/DL (80-115)
[2017-08-20] MEDS: LEVEMIR (INSULIN DETEMIR) 1 UNITS/0.01ML SC (20:34)
[2017-08-20] MEDS: ALPRAZolam 0.5 MG TAB PEG (20:35)
[2017-08-20] MEDS: BACLOFEN 10 MG TAB PEG (20:37)
[2017-08-20 22:03] LABS: BEDSIDE GLUCOSE 179 MG/DL (80-115)
[2017-08-21] MEDS: ALBUTEROL SULFATE 2.5 MG/0.5 ML INH NEB SOLN NEB ×4 (00:04→23:50)
[2017-08-21 00:18] LABS: BEDSIDE GLUCOSE 185 MG/DL (80-115)
[2017-08-21] MEDS: HumaLOG INSULIN (NovoLOG) PER UNIT SC ×4 (01:14→17:59)
[2017-08-21] MEDS: KCL 10MEQ IN D5/0.45NS 1000ML 1,000 ML IV ×2 (05:23→21:50)
[2017-08-21] MEDS: MEROPENEM INJ 1 GM in APPROPRIATE DILUENT 1 EA IV ×2 (05:23→17:59)
[2017-08-21] MEDS: HEPARIN SOD (PORCINE) 5000 UNITS/ML VIAL SQ ×3 (05:23→21:19)
[2017-08-21] MEDS: LEVOTHYROXINE 75MCG TABLET (0.075MG) PEG (05:24)
[2017-08-21] MEDS: SODIUM CHLORIDE 0.9% INJ 10 ML SYR IV ×3 (05:24→21:19)
[2017-08-21] MEDS: oxyBUTYnin 5 MG TAB PEG ×3 (05:24→21:17)
[2017-08-21 06:51] LABS: BEDSIDE GLUCOSE 141 MG/DL (80-115)
[2017-08-21 07:25] LABS: C REACTIVE PROTEIN QUANTITATIV 7.72 MG/DL (0.00-0.30)
[2017-08-21 07:59] LABS: HEMATOCRIT 26.4 % (42.0-52.0); HEMOGLOBIN 8.3 g/dl (13.5-17.5); MEAN CORPUSCULAR HEMOGLOBIN 29.7 pg (27.0-33.0); MEAN CORPUSCULAR HGB CONC 31.4 g/dl (32.0-36.5); MEAN CORPUSCULAR VOLUME 94.6 fl (80.0-96.0); PLATELET COUNT, AUTOMATED 178 10^3/uL (150-450); RED BLOOD COUNT 2.79 10^6/uL (4.30-6.10); RED CELL DISTRIBUTION WIDTH 15.8 % (11.5-14.5); WHITE BLOOD COUNT 10.4 10^3/uL (4.0-10.0)
[2017-08-21 08:05] LABS: ALBUMIN 1.7 GM/DL (3.2-5.2); ANION GAP 6 MEQ/L (8-16); BLOOD UREA NITROGEN 56 MG/DL (7-18); CALCIUM LEVEL 8.9 MG/DL (8.8-10.2); CARBON DIOXIDE LEVEL 27 MEQ/L (21-32); CHLORIDE LEVEL 109 MEQ/L (98-107); CREATININE FOR GFR 1.62 MG/DL (0.70-1.30); GLOMERULAR FILTRATION RATE 45.2 (>49); GLUCOSE, FASTING 155 MG/DL (70-100); PHOSPHORUS LEVEL 3.3 MG/DL (2.5-4.9); POTASSIUM SERUM 4.4 MEQ/L (3.5-5.1); SODIUM LEVEL 142 MEQ/L (136-145)
[2017-08-21] MEDS: METOPROLOL TART 12.5 MG PER 1/2 TAB PEG ×2 (08:19→21:17)
[2017-08-21] MEDS: amLODIPine 5 MG TAB PEG ×2 (08:19→21:18)
[2017-08-21] MEDS: FLUTICASONE PROP 0.05% NASAL SPRAY 16 GM (FLONASE) (08:20)
[2017-08-21] MEDS: PANTOPRAZOLE 40MG INJ (PROTONIX) (C9113) IV (08:54)
[2017-08-21] MEDS: FERROUS SULFATE 300MG/5ML UDC LIQUID PEG ×2 (08:54→21:17)
[2017-08-21] MEDS: GABAPENTIN 100 MG CAP PEG ×3 (08:55→21:17)
[2017-08-21] MEDS: ASCORBIC ACID 500 MG TAB PEG (08:55)
[2017-08-21] MEDS: ALLOPURINOL 100 MG TAB PEG ×2 (08:55→21:18)
[2017-08-21] MEDS: CETIRIZINE (ZyrTEC) 10 MG TAB PEG (08:55)
[2017-08-21] MEDS: NYSTATIN 100,000 UNITS/GM TOPICAL PWD 15 GM TOP ×2 (08:55→21:16)
[2017-08-21] MEDS: buPROPion 75 MG TAB PEG (08:55)
[2017-08-21 12:19] LABS: BEDSIDE GLUCOSE 187 MG/DL (80-115)
[2017-08-21 17:57] LABS: BEDSIDE GLUCOSE 207 MG/DL (80-115)
[2017-08-21 21:14] LABS: BEDSIDE GLUCOSE 137 MG/DL (80-115)
[2017-08-21] MEDS: ACETAMINOPHEN 325 MG/10.15 ML UDC GT (21:15)
[2017-08-21] MEDS: LEVEMIR (INSULIN DETEMIR) 1 UNITS/0.01ML SC (21:16)
[2017-08-21] MEDS: ALPRAZolam 0.5 MG TAB PEG (21:18)
[2017-08-21] MEDS: BACLOFEN 10 MG TAB PEG (21:18)
[2017-08-22] MEDS: HumaLOG INSULIN (NovoLOG) PER UNIT SC ×4 (00:24→17:31)
[2017-08-22 00:28] LABS: BEDSIDE GLUCOSE 187 MG/DL (80-115)
[2017-08-22 05:42] LABS: BEDSIDE GLUCOSE 145 MG/DL (80-115)
[2017-08-22] MEDS: HEPARIN SOD (PORCINE) 5000 UNITS/ML VIAL SQ ×3 (05:51→21:17)
[2017-08-22] MEDS: oxyBUTYnin 5 MG TAB PEG ×3 (05:52→21:17)
[2017-08-22] MEDS: LEVOTHYROXINE 75MCG TABLET (0.075MG) PEG (05:52)
[2017-08-22] MEDS: MEROPENEM INJ 1 GM in APPROPRIATE DILUENT 1 EA IV ×2 (05:52→17:30)
[2017-08-22] MEDS: SODIUM CHLORIDE 0.9% INJ 10 ML SYR IV ×2 (06:00→17:30)
[2017-08-22 06:22] LABS: HEMATOCRIT 28.8 % (42.0-52.0); HEMOGLOBIN 9.2 g/dl (13.5-17.5); MEAN CORPUSCULAR HGB CONC 31.9 g/dl (32.0-36.5); MEAN CORPUSCULAR VOLUME 93.8 fl (80.0-96.0); PLATELET COUNT, AUTOMATED 184 10^3/uL (150-450); RED BLOOD COUNT 3.07 10^6/uL (4.30-6.10); WHITE BLOOD COUNT 10.5 10^3/uL (4.0-10.0)
[2017-08-22 06:46] LABS: ALBUMIN 1.7 GM/DL (3.2-5.2); ALBUMIN/GLOBULIN RATIO 0.41 (1.00-1.93); ALKALINE PHOSPHATASE 149 U/L (45-117); ALT/SGPT 12 U/L (12-78); ANION GAP 7 MEQ/L (8-16); AST/SGOT 16 U/L (7-37); BILIRUBIN,TOTAL 0.4 MG/DL (0.2-1.0); BLOOD UREA NITROGEN 53 MG/DL (7-18); C REACTIVE PROTEIN QUANTITATIV 7.33 MG/DL (0.00-0.30); CALCIUM LEVEL 9.3 MG/DL (8.8-10.2); CARBON DIOXIDE LEVEL 28 MEQ/L (21-32); CHLORIDE LEVEL 108 MEQ/L (98-107); CREATININE FOR GFR 1.48 MG/DL (0.70-1.30); GLOMERULAR FILTRATION RATE 50.2 (>49); GLUCOSE, FASTING 127 MG/DL (70-100); POTASSIUM SERUM 4.8 MEQ/L (3.5-5.1); SODIUM LEVEL 143 MEQ/L (136-145); TOTAL PROTEIN 5.8 GM/DL (6.4-8.2)
[2017-08-22] MEDS: ALBUTEROL SULFATE 2.5 MG/0.5 ML INH NEB SOLN NEB ×3 (07:20→23:07)
[2017-08-22] MEDS: NORCO, ANEXSIA 5/325MG TABLET (HYDROcodone/ACETAMINOPHEN) PEG ×2 (07:55→13:54)
[2017-08-22] MEDS: PANTOPRAZOLE 40MG INJ (PROTONIX) (C9113) IV (08:00)
[2017-08-22] MEDS: METOPROLOL TART 12.5 MG PER 1/2 TAB PEG ×2 (08:00→21:15)
[2017-08-22] MEDS: GABAPENTIN 100 MG CAP PEG ×3 (08:01→21:16)
[2017-08-22] MEDS: amLODIPine 5 MG TAB PEG ×2 (08:01→21:16)
[2017-08-22] MEDS: FERROUS SULFATE 300MG/5ML UDC LIQUID PEG ×2 (08:01→21:14)
[2017-08-22] MEDS: CETIRIZINE (ZyrTEC) 10 MG TAB PEG (08:02)
[2017-08-22] MEDS: buPROPion 75 MG TAB PEG (08:02)
[2017-08-22] MEDS: ALLOPURINOL 100 MG TAB PEG ×2 (08:02→21:16)
[2017-08-22] MEDS: ASCORBIC ACID 500 MG TAB PEG (08:02)
[2017-08-22] MEDS: NYSTATIN 100,000 UNITS/GM TOPICAL PWD 15 GM TOP ×2 (08:02→21:00)
[2017-08-22] MEDS: FLUTICASONE PROP 0.05% NASAL SPRAY 16 GM (FLONASE) (08:02)
[2017-08-22] MEDS: MORPHINE 4 MG/ML 1ML VIAL/SYRINGE (J2270) IV ×3 (09:03→21:14)
[2017-08-22 11:37] LABS: BEDSIDE GLUCOSE 133 MG/DL (80-115)
[2017-08-22] MEDS: KCL 10MEQ IN D5/0.45NS 1000ML 1,000 ML IV (13:52)
[2017-08-22] MEDS: ACETAMINOPHEN 325 MG/10.15 ML UDC GT (15:32)
[2017-08-22 17:26] LABS: BEDSIDE GLUCOSE 195 MG/DL (80-115)
[2017-08-22] MEDS: BACLOFEN 10 MG TAB PEG (21:15)
[2017-08-22] MEDS: LEVEMIR (INSULIN DETEMIR) 1 UNITS/0.01ML SC (21:15)
[2017-08-22] MEDS: ALPRAZolam 0.5 MG TAB PEG (21:16)
[2017-08-23 00:07] LABS: BEDSIDE GLUCOSE 222 MG/DL (80-115)
[2017-08-23 04:53] LABS: HEMATOCRIT 31.8 % (42.0-52.0); HEMOGLOBIN 9.9 g/dl (13.5-17.5); MEAN CORPUSCULAR HEMOGLOBIN 28.9 pg (27.0-33.0); MEAN CORPUSCULAR HGB CONC 31.1 g/dl (32.0-36.5); PLATELET COUNT, AUTOMATED 230 10^3/uL (150-450); RED BLOOD COUNT 3.42 10^6/uL (4.30-6.10); RED CELL DISTRIBUTION WIDTH 15.8 % (11.5-14.5); WHITE BLOOD COUNT 22.3 10^3/uL (4.0-10.0)
[2017-08-23] MEDS: LEVOTHYROXINE 75MCG TABLET (0.075MG) PEG (05:00)
[2017-08-23] MEDS: HEPARIN SOD (PORCINE) 5000 UNITS/ML VIAL SQ ×3 (05:00→21:13)
[2017-08-23] MEDS: oxyBUTYnin 5 MG TAB PEG ×3 (05:00→21:13)
[2017-08-23] MEDS: ACETAMINOPHEN 325 MG/10.15 ML UDC GT ×3 (05:01→15:58)
[2017-08-23] MEDS: SODIUM CHLORIDE 0.9% INJ 10 ML SYR IV ×2 (05:02→18:00)
[2017-08-23] MEDS: MEROPENEM INJ 1 GM in APPROPRIATE DILUENT 1 EA IV ×2 (05:02→18:24)
[2017-08-23 05:18] LABS: ALBUMIN 1.9 GM/DL (3.2-5.2); ALBUMIN/GLOBULIN RATIO 0.43 (1.00-1.93); ALKALINE PHOSPHATASE 166 U/L (45-117); ALT/SGPT 12 U/L (12-78); ANION GAP 5 MEQ/L (8-16); AST/SGOT 21 U/L (7-37); BILIRUBIN,TOTAL 0.4 MG/DL (0.2-1.0); BLOOD UREA NITROGEN 46 MG/DL (7-18); C REACTIVE PROTEIN QUANTITATIV 9.75 MG/DL (0.00-0.30); CALCIUM LEVEL 9.4 MG/DL (8.8-10.2); CARBON DIOXIDE LEVEL 28 MEQ/L (21-32); CHLORIDE LEVEL 108 MEQ/L (98-107); GLOMERULAR FILTRATION RATE 58.3 (>49); GLUCOSE, FASTING 111 MG/DL (70-100); SODIUM LEVEL 141 MEQ/L (136-145); TOTAL PROTEIN 6.3 GM/DL (6.4-8.2)
[2017-08-23] MEDS: KCL 10MEQ IN D5/0.45NS 1000ML 1,000 ML IV (05:19)
[2017-08-23 05:31] LABS: POTASSIUM SERUM 5.4 MEQ/L (3.5-5.1)
[2017-08-23] MEDS: HumaLOG INSULIN (NovoLOG) PER UNIT SC ×4 (05:32→18:23)
[2017-08-23 05:35] LABS: BEDSIDE GLUCOSE 122 MG/DL (80-115)
[2017-08-23] MEDS: FERROUS SULFATE 300MG/5ML UDC LIQUID PEG ×2 (08:42→21:12)
[2017-08-23] MEDS: GABAPENTIN 100 MG CAP PEG ×3 (08:43→21:13)
[2017-08-23] MEDS: CETIRIZINE (ZyrTEC) 10 MG TAB PEG (08:43)
[2017-08-23] MEDS: PANTOPRAZOLE 40MG INJ (PROTONIX) (C9113) IV (08:43)
[2017-08-23] MEDS: METOPROLOL TART 12.5 MG PER 1/2 TAB PEG ×2 (08:49→21:14)
[2017-08-23] MEDS: buPROPion 75 MG TAB PEG (08:50)
[2017-08-23] MEDS: ALLOPURINOL 100 MG TAB PEG ×2 (08:50→21:14)
[2017-08-23] MEDS: ASCORBIC ACID 500 MG TAB PEG (08:50)
[2017-08-23] MEDS: amLODIPine 5 MG TAB PEG ×2 (08:50→21:14)
[2017-08-23] MEDS: FLUTICASONE PROP 0.05% NASAL SPRAY 16 GM (FLONASE) (08:50)
[2017-08-23] MEDS: NYSTATIN 100,000 UNITS/GM TOPICAL PWD 15 GM TOP ×2 (08:51→21:12)
[2017-08-23] MEDS: ALBUTEROL SULFATE 2.5 MG/0.5 ML INH NEB SOLN NEB ×2 (09:10→15:24)
[2017-08-23] MEDS: MORPHINE 4 MG/ML 1ML VIAL/SYRINGE (J2270) IV ×2 (09:12→14:42)
[2017-08-23 11:28] LABS: BEDSIDE GLUCOSE 164 MG/DL (80-115)
[2017-08-23] MEDS: D5W/0.45% SODIUM CHLORIDE 1,000 ML IV (15:58)
[2017-08-23 18:36] LABS: BEDSIDE GLUCOSE 184 MG/DL (80-115)
[2017-08-23] MEDS: LEVEMIR (INSULIN DETEMIR) 1 UNITS/0.01ML SC (21:12)
[2017-08-23] MEDS: BACLOFEN 10 MG TAB PEG (21:14)
[2017-08-23] MEDS: ALPRAZolam 0.5 MG TAB PEG (21:15)
[2017-08-24] MEDS: HumaLOG INSULIN (NovoLOG) PER UNIT SC ×4 (00:24→17:19)
[2017-08-24 00:25] LABS: BEDSIDE GLUCOSE 200 MG/DL (80-115)
[2017-08-24] MEDS: ALBUTEROL SULFATE 2.5 MG/0.5 ML INH NEB SOLN NEB ×3 (00:39→15:29)
[2017-08-24] MEDS: NORCO, ANEXSIA 5/325MG TABLET (HYDROcodone/ACETAMINOPHEN) PEG ×2 (02:33→18:05)
[2017-08-24 05:08] LABS: HEMATOCRIT 28.3 % (42.0-52.0); HEMOGLOBIN 8.9 g/dl (13.5-17.5); MEAN CORPUSCULAR HEMOGLOBIN 29.6 pg (27.0-33.0); MEAN CORPUSCULAR HGB CONC 31.4 g/dl (32.0-36.5); PLATELET COUNT, AUTOMATED 227 10^3/uL (150-450); RED BLOOD COUNT 3.01 10^6/uL (4.30-6.10); RED CELL DISTRIBUTION WIDTH 15.9 % (11.5-14.5); WHITE BLOOD COUNT 16.6 10^3/uL (4.0-10.0)
[2017-08-24] MEDS: LEVOTHYROXINE 75MCG TABLET (0.075MG) PEG (05:14)
[2017-08-24] MEDS: MEROPENEM INJ 1 GM in APPROPRIATE DILUENT 1 EA IV ×2 (05:15→17:08)
[2017-08-24] MEDS: HEPARIN SOD (PORCINE) 5000 UNITS/ML VIAL SQ ×3 (05:15→21:19)
[2017-08-24] MEDS: oxyBUTYnin 5 MG TAB PEG ×3 (05:15→21:19)
[2017-08-24 05:16] LABS: BEDSIDE GLUCOSE 188 MG/DL (80-115)
[2017-08-24] MEDS: SODIUM CHLORIDE 0.9% INJ 10 ML SYR IV ×2 (05:16→17:08)
[2017-08-24 05:29] LABS: ALBUMIN 1.7 GM/DL (3.2-5.2); ALBUMIN/GLOBULIN RATIO 0.39 (1.00-1.93); ALKALINE PHOSPHATASE 166 U/L (45-117); ALT/SGPT 9 U/L (12-78); ANION GAP 4 MEQ/L (8-16); AST/SGOT 13 U/L (7-37); BILIRUBIN,TOTAL 0.3 MG/DL (0.2-1.0); BLOOD UREA NITROGEN 46 MG/DL (7-18); CALCIUM LEVEL 9.4 MG/DL (8.8-10.2); CARBON DIOXIDE LEVEL 28 MEQ/L (21-32); CHLORIDE LEVEL 108 MEQ/L (98-107); CREATININE FOR GFR 1.37 MG/DL (0.70-1.30); GLOMERULAR FILTRATION RATE 54.8 (>49); GLUCOSE, FASTING 154 MG/DL (70-100); POTASSIUM SERUM 5.1 MEQ/L (3.5-5.1); SODIUM LEVEL 140 MEQ/L (136-145); TOTAL PROTEIN 6.1 GM/DL (6.4-8.2)
[2017-08-24] MEDS: ACETAMINOPHEN 325 MG/10.15 ML UDC GT (06:57)
[2017-08-24] MEDS: D5W/0.45% SODIUM CHLORIDE 1,000 ML IV (06:58)
[2017-08-24] MEDS: FERROUS SULFATE 300MG/5ML UDC LIQUID PEG ×2 (09:04→21:19)
[2017-08-24] MEDS: PANTOPRAZOLE 40MG INJ (PROTONIX) (C9113) IV (09:04)
[2017-08-24] MEDS: ASCORBIC ACID 500 MG TAB PEG (09:05)
[2017-08-24] MEDS: buPROPion 75 MG TAB PEG (09:05)
[2017-08-24] MEDS: GABAPENTIN 100 MG CAP PEG ×3 (09:05→21:19)
[2017-08-24] MEDS: amLODIPine 5 MG TAB PEG ×2 (09:05→21:18)
[2017-08-24] MEDS: CETIRIZINE (ZyrTEC) 10 MG TAB PEG (09:05)
[2017-08-24] MEDS: ALLOPURINOL 100 MG TAB PEG ×2 (09:05→21:19)
[2017-08-24] MEDS: FLUTICASONE PROP 0.05% NASAL SPRAY 16 GM (FLONASE) (09:06)
[2017-08-24] MEDS: NYSTATIN 100,000 UNITS/GM TOPICAL PWD 15 GM TOP ×2 (09:06→21:20)
[2017-08-24] MEDS: METOPROLOL TART 12.5 MG PER 1/2 TAB PEG ×2 (09:09→21:18)
[2017-08-24 11:33] LABS: BEDSIDE GLUCOSE 273 MG/DL (80-115)
[2017-08-24] MEDS: BISACODYL 10 MG SUPP PR (14:16)
[2017-08-24 17:22] LABS: BEDSIDE GLUCOSE 230 MG/DL (80-115)
[2017-08-24] MEDS: ALPRAZolam 0.5 MG TAB PEG (21:18)
[2017-08-24] MEDS: BACLOFEN 10 MG TAB PEG (21:18)
[2017-08-24] MEDS: LEVEMIR (INSULIN DETEMIR) 1 UNITS/0.01ML SC (21:20)
[2017-08-24 22:09] LABS: BEDSIDE GLUCOSE 157 MG/DL (80-115)
[2017-08-25] MEDS: ALBUTEROL SULFATE 2.5 MG/0.5 ML INH NEB SOLN NEB ×4 (00:37→23:58)
[2017-08-25] MEDS: LEVOTHYROXINE 75MCG TABLET (0.075MG) PEG (05:08)
[2017-08-25] MEDS: oxyBUTYnin 5 MG TAB PEG ×3 (05:08→21:09)
[2017-08-25] MEDS: D5W/0.45% SODIUM CHLORIDE 1,000 ML IV ×2 (05:08→18:31)
[2017-08-25] MEDS: MEROPENEM INJ 1 GM in APPROPRIATE DILUENT 1 EA IV ×2 (05:08→18:31)
[2017-08-25] MEDS: HEPARIN SOD (PORCINE) 5000 UNITS/ML VIAL SQ ×3 (05:09→21:12)
[2017-08-25] MEDS: SODIUM CHLORIDE 0.9% INJ 10 ML SYR IV ×2 (05:11→18:31)
[2017-08-25 05:39] LABS: BEDSIDE GLUCOSE 126 MG/DL (80-115)
[2017-08-25 05:39] LABS: BEDSIDE GLUCOSE 103 MG/DL (80-115)
[2017-08-25 05:47] LABS: HEMATOCRIT 25.6 % (42.0-52.0); HEMOGLOBIN 7.9 g/dl (13.5-17.5); MEAN CORPUSCULAR HGB CONC 30.9 g/dl (32.0-36.5); MEAN CORPUSCULAR VOLUME 94.1 fl (80.0-96.0); PLATELET COUNT, AUTOMATED 212 10^3/uL (150-450); RED BLOOD COUNT 2.72 10^6/uL (4.30-6.10); RED CELL DISTRIBUTION WIDTH 15.9 % (11.5-14.5); WHITE BLOOD COUNT 17.4 10^3/uL (4.0-10.0)
[2017-08-25] MEDS: HumaLOG INSULIN (NovoLOG) PER UNIT SC ×4 (06:00→18:00)
[2017-08-25 06:10] LABS: ALBUMIN 1.6 GM/DL (3.2-5.2); ALBUMIN/GLOBULIN RATIO 0.42 (1.00-1.93); ALKALINE PHOSPHATASE 138 U/L (45-117); ALT/SGPT 9 U/L (12-78); ANION GAP 6 MEQ/L (8-16); AST/SGOT 9 U/L (7-37); BILIRUBIN,TOTAL 0.3 MG/DL (0.2-1.0); BLOOD UREA NITROGEN 52 MG/DL (7-18); CALCIUM LEVEL 9.3 MG/DL (8.8-10.2); CARBON DIOXIDE LEVEL 28 MEQ/L (21-32); CHLORIDE LEVEL 108 MEQ/L (98-107); CREATININE FOR GFR 1.36 MG/DL (0.70-1.30); GLOMERULAR FILTRATION RATE 55.3 (>49); GLUCOSE, FASTING 85 MG/DL (70-100); SODIUM LEVEL 142 MEQ/L (136-145); TOTAL PROTEIN 5.4 GM/DL (6.4-8.2)
[2017-08-25] MEDS: PANTOPRAZOLE 40MG INJ (PROTONIX) (C9113) IV (09:54)
[2017-08-25] MEDS: FERROUS SULFATE 300MG/5ML UDC LIQUID PEG ×2 (09:54→21:13)
[2017-08-25] MEDS: GABAPENTIN 100 MG CAP PEG ×3 (09:54→21:09)
[2017-08-25] MEDS: buPROPion 75 MG TAB PEG (09:55)
[2017-08-25] MEDS: METOPROLOL TART 12.5 MG PER 1/2 TAB PEG ×2 (09:55→21:11)
[2017-08-25] MEDS: ALLOPURINOL 100 MG TAB PEG ×2 (09:55→21:09)
[2017-08-25] MEDS: CETIRIZINE (ZyrTEC) 10 MG TAB PEG (09:55)
[2017-08-25] MEDS: ASCORBIC ACID 500 MG TAB PEG (09:55)
[2017-08-25] MEDS: FLUTICASONE PROP 0.05% NASAL SPRAY 16 GM (FLONASE) (09:56)
[2017-08-25] MEDS: amLODIPine 5 MG TAB PEG ×2 (09:56→21:11)
[2017-08-25] MEDS: NYSTATIN 100,000 UNITS/GM TOPICAL PWD 15 GM TOP ×2 (09:57→21:12)
[2017-08-25 09:58] LABS: BEDSIDE GLUCOSE 100 MG/DL (80-115)
[2017-08-25 12:41] LABS: BEDSIDE GLUCOSE 125 MG/DL (80-115)
[2017-08-25 18:11] LABS: BEDSIDE GLUCOSE 157 MG/DL (80-115)
[2017-08-25] MEDS: METOCLOPRAMIDE 10 MG TAB PO (18:31)
[2017-08-25] MEDS: ALPRAZolam 0.5 MG TAB PEG (21:09)
[2017-08-25] MEDS: BACLOFEN 10 MG TAB PEG (21:09)
[2017-08-25] MEDS: LEVEMIR (INSULIN DETEMIR) 1 UNITS/0.01ML SC (21:12)
[2017-08-25] MEDS: ACETAMINOPHEN 325 MG/10.15 ML UDC GT (21:12)
[2017-08-26] MEDS: METOCLOPRAMIDE 10 MG TAB PO ×4 (01:25→17:36)
[2017-08-26 03:21] LABS: BEDSIDE GLUCOSE 153 MG/DL (80-115)
[2017-08-26] MEDS: oxyBUTYnin 5 MG TAB PEG ×3 (05:58→20:42)
[2017-08-26] MEDS: MEROPENEM INJ 1 GM in APPROPRIATE DILUENT 1 EA IV ×2 (05:58→17:37)
[2017-08-26] MEDS: LEVOTHYROXINE 75MCG TABLET (0.075MG) PEG (05:58)
[2017-08-26] MEDS: HEPARIN SOD (PORCINE) 5000 UNITS/ML VIAL SQ ×3 (05:59→21:09)
[2017-08-26] MEDS: SODIUM CHLORIDE 0.9% INJ 10 ML SYR IV ×3 (05:59→17:36)
[2017-08-26] MEDS: HumaLOG INSULIN (NovoLOG) PER UNIT SC ×4 (06:00→18:00)
[2017-08-26 06:35] LABS: HEMATOCRIT 25.7 % (42.0-52.0); HEMOGLOBIN 8.1 g/dl (13.5-17.5); MEAN CORPUSCULAR HEMOGLOBIN 30.1 pg (27.0-33.0); MEAN CORPUSCULAR HGB CONC 31.5 g/dl (32.0-36.5); MEAN CORPUSCULAR VOLUME 95.5 fl (80.0-96.0); PLATELET COUNT, AUTOMATED 229 10^3/uL (150-450); RED BLOOD COUNT 2.69 10^6/uL (4.30-6.10); RED CELL DISTRIBUTION WIDTH 15.8 % (11.5-14.5); WHITE BLOOD COUNT 16.6 10^3/uL (4.0-10.0)
[2017-08-26 06:48] LABS: BEDSIDE GLUCOSE 115 MG/DL (80-115)
[2017-08-26 06:54] LABS: ALBUMIN 1.5 GM/DL (3.2-5.2); ALBUMIN/GLOBULIN RATIO 0.38 (1.00-1.93); ALKALINE PHOSPHATASE 131 U/L (45-117); ALT/SGPT 7 U/L (12-78); ANION GAP 5 MEQ/L (8-16); AST/SGOT 11 U/L (7-37); BILIRUBIN,TOTAL 0.3 MG/DL (0.2-1.0); BLOOD UREA NITROGEN 51 MG/DL (7-18); CALCIUM LEVEL 9.6 MG/DL (8.8-10.2); CARBON DIOXIDE LEVEL 26 MEQ/L (21-32); CHLORIDE LEVEL 107 MEQ/L (98-107); CREATININE FOR GFR 1.32 MG/DL (0.70-1.30); GLOMERULAR FILTRATION RATE 57.3 (>49); GLUCOSE, FASTING 104 MG/DL (70-100); POTASSIUM SERUM 4.8 MEQ/L (3.5-5.1); SODIUM LEVEL 138 MEQ/L (136-145); TOTAL PROTEIN 5.4 GM/DL (6.4-8.2)
[2017-08-26] MEDS: ALBUTEROL SULFATE 2.5 MG/0.5 ML INH NEB SOLN NEB ×3 (07:43→23:46)
[2017-08-26] MEDS: CETIRIZINE (ZyrTEC) 10 MG TAB PEG (09:40)
[2017-08-26] MEDS: MOM 30ML SUSPENSION UDC PEG (09:40)
[2017-08-26] MEDS: FERROUS SULFATE 300MG/5ML UDC LIQUID PEG ×2 (09:40→20:41)
[2017-08-26] MEDS: ALLOPURINOL 100 MG TAB PEG ×2 (09:40→20:41)
[2017-08-26] MEDS: GABAPENTIN 100 MG CAP PEG ×3 (09:40→20:43)
[2017-08-26] MEDS: amLODIPine 5 MG TAB PEG ×2 (09:41→20:43)
[2017-08-26] MEDS: ASCORBIC ACID 500 MG TAB PEG (09:41)
[2017-08-26] MEDS: METOPROLOL TART 12.5 MG PER 1/2 TAB PEG ×2 (09:41→20:44)
[2017-08-26] MEDS: buPROPion 75 MG TAB PEG (09:41)
[2017-08-26] MEDS: FLUTICASONE PROP 0.05% NASAL SPRAY 16 GM (FLONASE) (09:42)
[2017-08-26] MEDS: NYSTATIN 100,000 UNITS/GM TOPICAL PWD 15 GM TOP ×2 (09:42→20:41)
[2017-08-26] MEDS: PANTOPRAZOLE 40MG INJ (PROTONIX) (C9113) IV (09:42)
[2017-08-26] MEDS: D5W/0.45% SODIUM CHLORIDE 1,000 ML IV (10:02)
[2017-08-26] MEDS: NORCO, ANEXSIA 5/325MG TABLET (HYDROcodone/ACETAMINOPHEN) PEG ×2 (15:01→20:42)
[2017-08-26 15:19] LABS: BEDSIDE GLUCOSE 116 MG/DL (80-115)
[2017-08-26] MEDS: ALPRAZolam 0.5 MG TAB PEG (20:43)
[2017-08-26] MEDS: BACLOFEN 10 MG TAB PEG (20:43)
[2017-08-26 21:07] LABS: BEDSIDE GLUCOSE 142 MG/DL (80-115)
[2017-08-26] MEDS: LEVEMIR (INSULIN DETEMIR) 1 UNITS/0.01ML SC (21:08)
[2017-08-27] MEDS: HumaLOG INSULIN (NovoLOG) PER UNIT SC ×4 (00:12→17:53)
[2017-08-27] MEDS: METOCLOPRAMIDE 10 MG TAB PO ×4 (00:12→17:53)
[2017-08-27 00:13] LABS: BEDSIDE GLUCOSE 176 MG/DL (80-115)
[2017-08-27] MEDS: SODIUM CHLORIDE 0.9% INJ 10 ML SYR IV ×2 (05:30→18:00)
[2017-08-27 05:41] LABS: HEMATOCRIT 25.6 % (42.0-52.0); HEMOGLOBIN 8.1 g/dl (13.5-17.5); MEAN CORPUSCULAR HEMOGLOBIN 29.9 pg (27.0-33.0); MEAN CORPUSCULAR HGB CONC 31.6 g/dl (32.0-36.5); MEAN CORPUSCULAR VOLUME 94.5 fl (80.0-96.0); PLATELET COUNT, AUTOMATED 236 10^3/uL (150-450); RED BLOOD COUNT 2.71 10^6/uL (4.30-6.10); RED CELL DISTRIBUTION WIDTH 15.8 % (11.5-14.5); WHITE BLOOD COUNT 15.7 10^3/uL (4.0-10.0)
[2017-08-27 06:06] LABS: BEDSIDE GLUCOSE 195 MG/DL (80-115)
[2017-08-27 06:07] LABS: ALBUMIN 1.5 GM/DL (3.2-5.2); ALBUMIN/GLOBULIN RATIO 0.38 (1.00-1.93); ALKALINE PHOSPHATASE 162 U/L (45-117); ALT/SGPT 7 U/L (12-78); ANION GAP 6 MEQ/L (8-16); AST/SGOT 12 U/L (7-37); BILIRUBIN,TOTAL 0.2 MG/DL (0.2-1.0); BLOOD UREA NITROGEN 51 MG/DL (7-18); CALCIUM LEVEL 9.4 MG/DL (8.8-10.2); CARBON DIOXIDE LEVEL 26 MEQ/L (21-32); CHLORIDE LEVEL 107 MEQ/L (98-107); CREATININE FOR GFR 1.35 MG/DL (0.70-1.30); GLOMERULAR FILTRATION RATE 55.8 (>49); GLUCOSE, FASTING 172 MG/DL (70-100); SODIUM LEVEL 139 MEQ/L (136-145); TOTAL PROTEIN 5.5 GM/DL (6.4-8.2)
[2017-08-27 06:12] LABS: POTASSIUM SERUM 5.3 MEQ/L (3.5-5.1)
[2017-08-27] MEDS: MEROPENEM INJ 1 GM in APPROPRIATE DILUENT 1 EA IV ×2 (06:12→17:53)
[2017-08-27] MEDS: oxyBUTYnin 5 MG TAB PEG ×3 (06:12→21:19)
[2017-08-27] MEDS: HEPARIN SOD (PORCINE) 5000 UNITS/ML VIAL SQ ×3 (06:12→21:21)
[2017-08-27] MEDS: LEVOTHYROXINE 75MCG TABLET (0.075MG) PEG (06:12)
[2017-08-27] MEDS: ALBUTEROL SULFATE 2.5 MG/0.5 ML INH NEB SOLN NEB ×2 (07:44→23:19)
[2017-08-27] MEDS: FERROUS SULFATE 300MG/5ML UDC LIQUID PEG ×2 (10:13→21:19)
[2017-08-27] MEDS: PANTOPRAZOLE 40MG INJ (PROTONIX) (C9113) IV (10:14)
[2017-08-27] MEDS: amLODIPine 5 MG TAB PEG ×2 (10:15→21:00)
[2017-08-27] MEDS: ALLOPURINOL 100 MG TAB PEG ×2 (10:16→21:20)
[2017-08-27] MEDS: buPROPion 75 MG TAB PEG (10:16)
[2017-08-27] MEDS: METOPROLOL TART 12.5 MG PER 1/2 TAB PEG ×2 (10:16→21:19)
[2017-08-27] MEDS: CETIRIZINE (ZyrTEC) 10 MG TAB PEG (10:16)
[2017-08-27] MEDS: GABAPENTIN 100 MG CAP PEG ×3 (10:17→21:19)
[2017-08-27] MEDS: FLUTICASONE PROP 0.05% NASAL SPRAY 16 GM (FLONASE) (10:17)
[2017-08-27] MEDS: NYSTATIN 100,000 UNITS/GM TOPICAL PWD 15 GM TOP ×2 (10:18→21:22)
[2017-08-27] MEDS: FUROSEMIDE 20 MG TAB PEG (10:31)
[2017-08-27] MEDS: NORCO, ANEXSIA 5/325MG TABLET (HYDROcodone/ACETAMINOPHEN) PEG ×2 (14:36→18:52)
[2017-08-27 17:15] LABS: BEDSIDE GLUCOSE 171 MG/DL (80-115)
[2017-08-27] MEDS: ALPRAZolam 0.5 MG TAB PEG (21:19)
[2017-08-27] MEDS: BACLOFEN 10 MG TAB PEG (21:20)
[2017-08-27] MEDS: LEVEMIR (INSULIN DETEMIR) 1 UNITS/0.01ML SC (21:22)
[2017-08-28] MEDS: METOCLOPRAMIDE 10 MG TAB PO ×4 (00:16→17:38)
[2017-08-28] MEDS: HumaLOG INSULIN (NovoLOG) PER UNIT SC ×4 (00:16→17:38)
[2017-08-28] MEDS: NS 500 ML IV (05:00)
[2017-08-28] MEDS: SODIUM CHLORIDE 0.9% INJ 10 ML SYR IV ×2 (05:14→18:00)
[2017-08-28] MEDS: MEROPENEM INJ 1 GM in APPROPRIATE DILUENT 1 EA IV ×2 (05:14→17:37)
[2017-08-28] MEDS: LEVOTHYROXINE 75MCG TABLET (0.075MG) PEG (05:18)
[2017-08-28] MEDS: oxyBUTYnin 5 MG TAB PEG ×3 (05:18→21:22)
[2017-08-28] MEDS: HEPARIN SOD (PORCINE) 5000 UNITS/ML VIAL SQ ×3 (05:18→21:22)
[2017-08-28 06:19] LABS: HEMATOCRIT 25.7 % (42.0-52.0); HEMOGLOBIN 8.1 g/dl (13.5-17.5); MEAN CORPUSCULAR HEMOGLOBIN 30.1 pg (27.0-33.0); MEAN CORPUSCULAR HGB CONC 31.5 g/dl (32.0-36.5); MEAN CORPUSCULAR VOLUME 95.5 fl (80.0-96.0); PLATELET COUNT, AUTOMATED 230 10^3/uL (150-450); RED BLOOD COUNT 2.69 10^6/uL (4.30-6.10); RED CELL DISTRIBUTION WIDTH 15.9 % (11.5-14.5); WHITE BLOOD COUNT 12.3 10^3/uL (4.0-10.0)
[2017-08-28 06:44] LABS: ALBUMIN 1.5 GM/DL (3.2-5.2); ALBUMIN/GLOBULIN RATIO 0.31 (1.00-1.93); ALKALINE PHOSPHATASE 178 U/L (45-117); ALT/SGPT 11 U/L (12-78); ANION GAP 7 MEQ/L (8-16); AST/SGOT 13 U/L (7-37); BILIRUBIN,TOTAL 0.3 MG/DL (0.2-1.0); BLOOD UREA NITROGEN 59 MG/DL (7-18); CARBON DIOXIDE LEVEL 25 MEQ/L (21-32); CHLORIDE LEVEL 107 MEQ/L (98-107); CREATININE FOR GFR 1.46 MG/DL (0.70-1.30); GLUCOSE, FASTING 183 MG/DL (70-100); SODIUM LEVEL 139 MEQ/L (136-145); TOTAL PROTEIN 6.3 GM/DL (6.4-8.2)
[2017-08-28 06:47] LABS: POTASSIUM SERUM 5.2 MEQ/L (3.5-5.1)
[2017-08-28] MEDS: ALBUTEROL SULFATE 2.5 MG/0.5 ML INH NEB SOLN NEB ×2 (07:33→15:52)
[2017-08-28] MEDS: PANTOPRAZOLE 40MG INJ (PROTONIX) (C9113) IV (08:37)
[2017-08-28] MEDS: FERROUS SULFATE 300MG/5ML UDC LIQUID PEG ×2 (08:37→21:17)
[2017-08-28] MEDS: amLODIPine 5 MG TAB PEG ×2 (08:38→21:19)
[2017-08-28] MEDS: CETIRIZINE (ZyrTEC) 10 MG TAB PEG (08:39)
[2017-08-28] MEDS: NORCO, ANEXSIA 5/325MG TABLET (HYDROcodone/ACETAMINOPHEN) PEG (08:39)
[2017-08-28] MEDS: buPROPion 75 MG TAB PEG (08:39)
[2017-08-28] MEDS: METOPROLOL TART 12.5 MG PER 1/2 TAB PEG ×2 (08:39→21:18)
[2017-08-28] MEDS: ALLOPURINOL 100 MG TAB PEG ×2 (08:40→21:21)
[2017-08-28] MEDS: FUROSEMIDE 20 MG TAB PEG (08:40)
[2017-08-28] MEDS: GABAPENTIN 100 MG CAP PEG ×3 (08:40→21:18)
[2017-08-28] MEDS: NYSTATIN 100,000 UNITS/GM TOPICAL PWD 15 GM TOP ×2 (08:42→21:21)
[2017-08-28] MEDS: FLUTICASONE PROP 0.05% NASAL SPRAY 16 GM (FLONASE) (08:42)
[2017-08-28] MEDS: ALPRAZolam 0.5 MG TAB PEG ×2 (10:37→21:00)
[2017-08-28] MEDS: MOM 30ML SUSPENSION UDC GT (12:46)
[2017-08-28] MEDS: FUROSEMIDE 20 MG TAB GT (12:48)
[2017-08-28 17:34] LABS: BEDSIDE GLUCOSE 201 MG/DL (80-115)
[2017-08-28 17:34] LABS: BEDSIDE GLUCOSE 202 MG/DL (80-115)
[2017-08-28 17:35] LABS: BEDSIDE GLUCOSE 216 MG/DL (80-115)
[2017-08-28] MEDS: BACLOFEN 10 MG TAB PEG (21:17)
[2017-08-28] MEDS: ACETAMINOPHEN 325 MG/10.15 ML UDC GT (21:23)
[2017-08-28] MEDS: LEVEMIR (INSULIN DETEMIR) 1 UNITS/0.01ML SC (21:48)
[2017-08-29] MEDS: ALBUTEROL SULFATE 2.5 MG/0.5 ML INH NEB SOLN NEB ×3 (00:03→15:21)
[2017-08-29] MEDS: HumaLOG INSULIN (NovoLOG) PER UNIT SC ×4 (00:37→17:36)
[2017-08-29] MEDS: METOCLOPRAMIDE 10 MG TAB PO ×4 (00:38→17:37)
[2017-08-29] MEDS: oxyBUTYnin 5 MG TAB PEG ×3 (05:46→22:24)
[2017-08-29] MEDS: LEVOTHYROXINE 75MCG TABLET (0.075MG) PEG (05:46)
[2017-08-29] MEDS: MEROPENEM INJ 1 GM in APPROPRIATE DILUENT 1 EA IV ×2 (05:47→17:35)
[2017-08-29] MEDS: HEPARIN SOD (PORCINE) 5000 UNITS/ML VIAL SQ ×3 (05:47→22:25)
[2017-08-29] MEDS: SODIUM CHLORIDE 0.9% INJ 10 ML SYR IV ×4 (05:48→17:55)
[2017-08-29] MEDS: GABAPENTIN 100 MG CAP PEG ×3 (09:00→22:23)
[2017-08-29] MEDS: PANTOPRAZOLE 40MG INJ (PROTONIX) (C9113) IV (09:19)
[2017-08-29] MEDS: METOPROLOL TART 12.5 MG PER 1/2 TAB PEG ×2 (09:20→22:27)
[2017-08-29] MEDS: buPROPion 75 MG TAB PEG (09:20)
[2017-08-29] MEDS: ALLOPURINOL 100 MG TAB PEG ×2 (09:21→22:23)
[2017-08-29] MEDS: amLODIPine 5 MG TAB PEG ×2 (09:21→11:30)
[2017-08-29] MEDS: CETIRIZINE (ZyrTEC) 10 MG TAB PEG (09:21)
[2017-08-29] MEDS: FUROSEMIDE 20 MG TAB PEG (09:21)
[2017-08-29] MEDS: FLUTICASONE PROP 0.05% NASAL SPRAY 16 GM (FLONASE) (09:22)
[2017-08-29] MEDS: FERROUS SULFATE 300MG/5ML UDC LIQUID PEG ×2 (09:22→22:22)
[2017-08-29] MEDS: NYSTATIN 100,000 UNITS/GM TOPICAL PWD 15 GM TOP ×2 (09:23→22:23)
[2017-08-29 11:13] LABS: HEMOGLOBIN 9.6 g/dl (13.5-17.5); MEAN CORPUSCULAR HEMOGLOBIN 29.9 pg (27.0-33.0); MEAN CORPUSCULAR VOLUME 99.7 fl (80.0-96.0); PLATELET COUNT, AUTOMATED 329 10^3/uL (150-450); RED BLOOD COUNT 3.21 10^6/uL (4.30-6.10); RED CELL DISTRIBUTION WIDTH 15.9 % (11.5-14.5)
[2017-08-29 11:22] LABS: ANION GAP 6 MEQ/L (8-16); BLOOD UREA NITROGEN 63 MG/DL (7-18); CARBON DIOXIDE LEVEL 28 MEQ/L (21-32); CHLORIDE LEVEL 108 MEQ/L (98-107); CREATININE FOR GFR 1.53 MG/DL (0.70-1.30); GLOMERULAR FILTRATION RATE 48.3 (>49); GLUCOSE, FASTING 248 MG/DL (70-100); SODIUM LEVEL 142 MEQ/L (136-145)
[2017-08-29 11:28] LABS: POTASSIUM SERUM 6.2 MEQ/L (3.5-5.1)
[2017-08-29] MEDS: ACETAMINOPHEN 325 MG/10.15 ML UDC GT (11:54)
[2017-08-29] MEDS: DEXTROSE 50% 50 ML SYRINGE IV ×2 (12:22→22:02)
[2017-08-29] MEDS: HumuLIN R (REGULAR) INSULIN (NovoLIN R) **100U/ML** PER UNIT IV ×2 (12:22→22:03)
[2017-08-29] MEDS: FUROSEMIDE 40 MG/4 ML VIAL (J1940) IV (12:23)
[2017-08-29] MEDS: NS 500 ML IV (12:23)
[2017-08-29 17:21] LABS: BEDSIDE GLUCOSE 269 MG/DL (80-115)
[2017-08-29 17:21] LABS: BEDSIDE GLUCOSE 311 MG/DL (80-115)
[2017-08-29 17:21] LABS: BEDSIDE GLUCOSE 262 MG/DL (80-115)
[2017-08-29 17:21] LABS: BEDSIDE GLUCOSE 244 MG/DL (80-115)
[2017-08-29 20:54] LABS: ANION GAP 4 MEQ/L (8-16); BLOOD UREA NITROGEN 71 MG/DL (7-18); CALCIUM LEVEL 9.5 MG/DL (8.8-10.2); CARBON DIOXIDE LEVEL 27 MEQ/L (21-32); CHLORIDE LEVEL 108 MEQ/L (98-107); CREATININE FOR GFR 1.37 MG/DL (0.70-1.30); GLOMERULAR FILTRATION RATE 54.8 (>49); GLUCOSE, FASTING 185 MG/DL (70-100); SODIUM LEVEL 139 MEQ/L (136-145)
[2017-08-29] MEDS: ALPRAZolam 0.5 MG TAB PEG (21:00)
[2017-08-29 21:03] LABS: POTASSIUM SERUM 6.3 MEQ/L (3.5-5.1)
[2017-08-29] MEDS: VANCOMYCIN HCL 1,000 MG, VIAL MATE ADAPTER 1 EACH in D5W 250 ML IV (22:18)
[2017-08-29] MEDS: BACLOFEN 10 MG TAB PEG (22:22)
[2017-08-29] MEDS: LEVEMIR (INSULIN DETEMIR) 1 UNITS/0.01ML SC (22:50)
[2017-08-30] MEDS: ALBUTEROL SULFATE 2.5 MG/0.5 ML INH NEB SOLN NEB ×4 (01:04→23:45)
[2017-08-30 01:10] LABS: ANION GAP 3 MEQ/L (8-16); BLOOD UREA NITROGEN 71 MG/DL (7-18); CALCIUM LEVEL 10.1 MG/DL (8.8-10.2); CARBON DIOXIDE LEVEL 28 MEQ/L (21-32); CHLORIDE LEVEL 106 MEQ/L (98-107); CREATININE FOR GFR 1.46 MG/DL (0.70-1.30); GLUCOSE, FASTING 226 MG/DL (70-100); SODIUM LEVEL 137 MEQ/L (136-145)
[2017-08-30] MEDS: METOCLOPRAMIDE 10 MG TAB PO ×5 (01:18→23:31)
[2017-08-30] MEDS: PATIROMER SORBITEX CALCIUM 8.4 GM POWDER PACKET (VELTASSA) PO ×2 (01:19→12:06)
[2017-08-30] MEDS: HumaLOG INSULIN (NovoLOG) PER UNIT SC ×5 (01:19→23:31)
[2017-08-30 05:25] LABS: HEMATOCRIT 27.9 % (42.0-52.0); HEMOGLOBIN 8.6 g/dl (13.5-17.5); MEAN CORPUSCULAR HGB CONC 30.8 g/dl (32.0-36.5); MEAN CORPUSCULAR VOLUME 97.2 fl (80.0-96.0); PLATELET COUNT, AUTOMATED 265 10^3/uL (150-450); RED BLOOD COUNT 2.87 10^6/uL (4.30-6.10); RED CELL DISTRIBUTION WIDTH 15.8 % (11.5-14.5); WHITE BLOOD COUNT 18.4 10^3/uL (4.0-10.0)
[2017-08-30 05:35] LABS: ANION GAP 4 MEQ/L (8-16); BLOOD UREA NITROGEN 72 MG/DL (7-18); CALCIUM LEVEL 10.5 MG/DL (8.8-10.2); CARBON DIOXIDE LEVEL 30 MEQ/L (21-32); CHLORIDE LEVEL 105 MEQ/L (98-107); CREATININE FOR GFR 1.47 MG/DL (0.70-1.30); GLOMERULAR FILTRATION RATE 50.6 (>49); GLUCOSE, FASTING 180 MG/DL (70-100); SODIUM LEVEL 139 MEQ/L (136-145)
[2017-08-30] MEDS: MEROPENEM INJ 1 GM in APPROPRIATE DILUENT 1 EA IV ×2 (06:31→18:46)
[2017-08-30] MEDS: oxyBUTYnin 5 MG TAB PEG ×3 (06:34→20:59)
[2017-08-30] MEDS: LEVOTHYROXINE 75MCG TABLET (0.075MG) PEG (06:35)
[2017-08-30] MEDS: HEPARIN SOD (PORCINE) 5000 UNITS/ML VIAL SQ ×3 (06:35→20:58)
[2017-08-30] MEDS: SODIUM CHLORIDE 0.9% INJ 10 ML SYR IV ×2 (06:35→18:00)
[2017-08-30 08:26] LABS: BEDSIDE GLUCOSE 202 MG/DL (80-115)
[2017-08-30 08:26] LABS: BEDSIDE GLUCOSE 181 MG/DL (80-115)
[2017-08-30 08:26] LABS: BEDSIDE GLUCOSE 200 MG/DL (80-115)
[2017-08-30 08:26] LABS: BEDSIDE GLUCOSE 121 MG/DL (80-115)
[2017-08-30 08:27] LABS: BEDSIDE GLUCOSE 276 MG/DL (80-115)
[2017-08-30] MEDS: METOPROLOL TART 12.5 MG PER 1/2 TAB PEG ×2 (08:45→21:00)
[2017-08-30] MEDS: ALLOPURINOL 100 MG TAB PEG ×2 (08:45→20:59)
[2017-08-30] MEDS: buPROPion 75 MG TAB PEG (08:45)
[2017-08-30] MEDS: CETIRIZINE (ZyrTEC) 10 MG TAB PEG (08:45)
[2017-08-30] MEDS: GABAPENTIN 100 MG CAP PEG ×3 (08:46→20:59)
[2017-08-30] MEDS: PANTOPRAZOLE 40MG INJ (PROTONIX) (C9113) IV (08:46)
[2017-08-30] MEDS: FERROUS SULFATE 300MG/5ML UDC LIQUID PEG ×2 (08:46→20:59)
[2017-08-30] MEDS: amLODIPine 5 MG TAB PO (08:46)
[2017-08-30] MEDS: FUROSEMIDE 20 MG TAB PEG (08:46)
[2017-08-30] MEDS: FLUTICASONE PROP 0.05% NASAL SPRAY 16 GM (FLONASE) (08:47)
[2017-08-30] MEDS: NYSTATIN 100,000 UNITS/GM TOPICAL PWD 15 GM TOP ×2 (08:47→21:00)
[2017-08-30 10:50] LABS: BEDSIDE GLUCOSE 198 MG/DL (80-115)
[2017-08-30 10:50] LABS: BEDSIDE GLUCOSE 193 MG/DL (80-115)
[2017-08-30 10:50] LABS: BEDSIDE GLUCOSE 237 MG/DL (80-115)
[2017-08-30 10:50] LABS: BEDSIDE GLUCOSE 264 MG/DL (80-115)
[2017-08-30 10:50] LABS: BEDSIDE GLUCOSE 191 MG/DL (80-115)
[2017-08-30 11:22] LABS: BEDSIDE GLUCOSE 210 MG/DL (80-115)
[2017-08-30 11:37] LABS: TOTAL PROTEIN,RANDOM URINE 129.6 MG/DL (0.0-12.0); URINE TOTAL PROTEIN 129.6 MG/DL (0-12)
[2017-08-30 11:40] LABS: BEDSIDE GLUCOSE 253 MG/DL (80-115)
[2017-08-30] MEDS: NS 1,000 ML IV (12:05)
[2017-08-30 16:33] LABS: ANION GAP 7 MEQ/L (8-16); BLOOD UREA NITROGEN 71 MG/DL (7-18); CARBON DIOXIDE LEVEL 28 MEQ/L (21-32); CHLORIDE LEVEL 105 MEQ/L (98-107); CREATININE FOR GFR 1.45 MG/DL (0.70-1.30); GLOMERULAR FILTRATION RATE 51.4 (>49); GLUCOSE, FASTING 180 MG/DL (70-100); SODIUM LEVEL 140 MEQ/L (136-145)
[2017-08-30 16:58] LABS: POTASSIUM SERUM 5.9 MEQ/L (3.5-5.1)
[2017-08-30] MEDS: ACETAMINOPHEN 325 MG/10.15 ML UDC GT (18:52)
[2017-08-30 18:57] LABS: BEDSIDE GLUCOSE 171 MG/DL (80-115)
[2017-08-30] MEDS: VANCOMYCIN HCL 1,000 MG, VIAL MATE ADAPTER 1 EACH in D5W 250 ML IV (20:59)
[2017-08-30] MEDS: BACLOFEN 10 MG TAB PEG (20:59)
[2017-08-30] MEDS: ALPRAZolam 0.5 MG TAB PEG (20:59)
[2017-08-30] MEDS: LEVEMIR (INSULIN DETEMIR) 1 UNITS/0.01ML SC (21:10)
[2017-08-31] MEDS: HumaLOG INSULIN (NovoLOG) PER UNIT SC (05:29)
[2017-08-31] MEDS: MEROPENEM INJ 1 GM in APPROPRIATE DILUENT 1 EA IV (05:29)
[2017-08-31] MEDS: oxyBUTYnin 5 MG TAB PEG (05:29)
[2017-08-31] MEDS: HEPARIN SOD (PORCINE) 5000 UNITS/ML VIAL SQ (05:29)
[2017-08-31] MEDS: LEVOTHYROXINE 75MCG TABLET (0.075MG) PEG (05:29)
[2017-08-31] MEDS: METOCLOPRAMIDE 10 MG TAB PO (05:31)
[2017-08-31] MEDS: NS 1,000 ML IV (05:32)
[2017-08-31] MEDS: SODIUM CHLORIDE 0.9% INJ 10 ML SYR IV (05:32)
[2017-08-31 05:50] LABS: HEMOGLOBIN 9.4 g/dl (13.5-17.5); MEAN CORPUSCULAR HEMOGLOBIN 29.7 pg (27.0-33.0); MEAN CORPUSCULAR HGB CONC 30.3 g/dl (32.0-36.5); MEAN CORPUSCULAR VOLUME 97.8 fl (80.0-96.0); PLATELET COUNT, AUTOMATED 296 10^3/uL (150-450); RED BLOOD COUNT 3.17 10^6/uL (4.30-6.10); RED CELL DISTRIBUTION WIDTH 15.8 % (11.5-14.5); WHITE BLOOD COUNT 28.2 10^3/uL (4.0-10.0)
[2017-08-31 06:10] LABS: ANION GAP 6 MEQ/L (8-16); BLOOD UREA NITROGEN 70 MG/DL (7-18); CALCIUM LEVEL 11.2 MG/DL (8.8-10.2); CARBON DIOXIDE LEVEL 26 MEQ/L (21-32); CHLORIDE LEVEL 105 MEQ/L (98-107); CREATININE FOR GFR 1.39 MG/DL (0.70-1.30); GLOMERULAR FILTRATION RATE 53.9 (>49); GLUCOSE, FASTING 147 MG/DL (70-100); SODIUM LEVEL 137 MEQ/L (136-145)
[2017-08-31 06:15] LABS: POTASSIUM SERUM 5.7 MEQ/L (3.5-5.1)
[2017-08-31] MEDS: ALBUTEROL SULFATE 2.5 MG/0.5 ML INH NEB SOLN NEB ×2 (07:32→15:12)
[2017-08-31 08:45] LABS: TOTAL PROTEIN 6.1 GM/DL (6.4-8.2)
[2017-08-31] MEDS: FERROUS SULFATE 300MG/5ML UDC LIQUID PEG (09:45)
[2017-08-31] MEDS: PANTOPRAZOLE 40MG INJ (PROTONIX) (C9113) IV (09:46)
[2017-08-31] MEDS: METOPROLOL TART 12.5 MG PER 1/2 TAB PEG (09:46)
[2017-08-31] MEDS: CETIRIZINE (ZyrTEC) 10 MG TAB PEG (09:46)
[2017-08-31] MEDS: GABAPENTIN 100 MG CAP PEG (09:46)
[2017-08-31] MEDS: ALLOPURINOL 100 MG TAB PEG (09:46)
[2017-08-31] MEDS: amLODIPine 5 MG TAB PO (09:46)
[2017-08-31] MEDS: buPROPion 75 MG TAB PEG (09:47)
[2017-08-31 10:20] LABS: PHOSPHORUS LEVEL 4.2 MG/DL (2.5-4.9)
[2017-08-31 10:22] LABS: PTH INTACT 7.5 PG/ML (18.5-88.0)
[2017-08-31 10:30] LABS: TOTAL 25(OH) VITAMIN D 30.8 NG/ML (30.0-100.0)
[2017-08-31] MEDS: SOD POLYSTYRENE SULFONATE SUSP 15 GM/60 ML UD PEG (11:08)
[2017-08-31] MEDS: ACETAMINOPHEN 325 MG/10.15 ML UDC GT (11:09)
[2017-08-31] MEDS ORDERED: ONDANSETRON 4MG/2ML VIAL (J2405) IV (11:30)
[2017-08-31] MEDS ORDERED: ATROPINE SULFATE 1% OP SOLN 2 ML BTL SL (11:30)
[2017-08-31] MEDS: NORCO, ANEXSIA 5/325MG TABLET (HYDROcodone/ACETAMINOPHEN) PEG ×2 (13:40→18:46)
[2017-08-31] MEDS ORDERED: SLF 3 ML SYR IV (15:45)
[2017-08-31 15:58] LABS: BEDSIDE GLUCOSE 155 MG/DL (80-115)
[2017-08-31 15:58] LABS: BEDSIDE GLUCOSE 192 MG/DL (80-115)
[2017-08-31 15:58] LABS: BEDSIDE GLUCOSE 211 MG/DL (80-115)
[2017-08-31] MEDS: ALPRAZolam 0.5 MG TAB PEG (21:47)
[2017-08-31] MEDS: MORPHINE 4 MG/ML 1ML VIAL/SYRINGE (J2270) IV (21:47)
[2017-08-31] MEDS: SLF 3 ML SYR IV (21:48)
[2017-09-01] MEDS: NORCO, ANEXSIA 5/325MG TABLET (HYDROcodone/ACETAMINOPHEN) PEG ×3 (00:47→20:48)
[2017-09-01] MEDS: ALBUTEROL SULFATE 2.5 MG/0.5 ML INH NEB SOLN NEB ×4 (01:04→23:20)
[2017-09-01] MEDS: MORPHINE 4 MG/ML 1ML VIAL/SYRINGE (J2270) IV ×4 (04:21→13:25)
[2017-09-01] MEDS: SLF 3 ML SYR IV ×3 (06:00→20:48)
[2017-09-01 11:04] LABS: ALBUMIN % 37.7 % (55.8-66.1); ALPHA-1-GLOBULIN % 11.6 % (2.9-4.9); ALPHA-1-GLOBULINS 0.71 GM/DL (0.17-0.41); ALPHA-2-GLOBULINS 1.04 GM/DL (0.42-0.99); BETA-1-GLOBULINS 0.38 GM/DL (0.28-0.60); BETA-1-GLOBULINS % 6.3 % (4.7-7.2); BETA-2-GLOBULINS 0.84 GM/DL (0.19-0.55); BETA-2-GLOBULINS % 13.7 % (3.2-6.5); GAMMA GLOBULIN % 13.7 % (11.1-18.8); GAMMA GLOBULINS 0.84 GM/DL (0.65-1.58)
[2017-09-01 13:10] LABS: UPEP INTERPRETATION NO M-SPIKE NOTED; URINE VOLUME RANDOM ML
[2017-09-01] MEDS: ALPRAZolam 0.5 MG TAB PEG ×3 (15:15→20:47)
[2017-09-01] MEDS: GABAPENTIN 100 MG CAP PO ×2 (15:16→20:47)
[2017-09-02 00:07] LABS: FREE KAPPA LIGHT CHAINS SERUM 107.8 mg/L (3.3-19.4); FREE LAMBDA LIGHT CHAINS SERUM 105.8 mg/L (5.7-26.3); KAPPA/LAMBDA RATIO SERUM 1.02 (0.26-1.65)
[2017-09-02] MEDS: MORPHINE 4 MG/ML 1ML VIAL/SYRINGE (J2270) IV ×3 (00:18→17:12)
[2017-09-02] MEDS: NORCO, ANEXSIA 5/325MG TABLET (HYDROcodone/ACETAMINOPHEN) PEG (03:49)
[2017-09-02] MEDS: SLF 3 ML SYR IV ×3 (05:31→21:10)
[2017-09-02] MEDS: ALBUTEROL SULFATE 2.5 MG/0.5 ML INH NEB SOLN NEB ×3 (07:19→23:32)
[2017-09-02] MEDS: GABAPENTIN 100 MG CAP PO ×3 (08:31→21:06)
[2017-09-02] MEDS: DOCUSATE SOD LIQ 100MG/10ML UDC GT ×2 (17:39→21:06)
[2017-09-02] MEDS: ALPRAZolam 0.5 MG TAB PEG (21:06)
[2017-09-02] MEDS: MOM 30ML SUSPENSION UDC PO (21:06)
[2017-09-03] MEDS: MORPHINE 4 MG/ML 1ML VIAL/SYRINGE (J2270) IV ×4 (06:31→17:35)
[2017-09-03] MEDS: SLF 3 ML SYR IV ×3 (06:33→20:16)
[2017-09-03] MEDS: ALBUTEROL SULFATE 2.5 MG/0.5 ML INH NEB SOLN NEB ×3 (07:12→23:50)
[2017-09-03] MEDS: GABAPENTIN 100 MG CAP PO ×3 (08:41→20:15)
[2017-09-03] MEDS: DOCUSATE SOD LIQ 100MG/10ML UDC GT (20:15)
[2017-09-03] MEDS: ALPRAZolam 0.5 MG TAB PEG (20:16)
[2017-09-03] MEDS: NORCO, ANEXSIA 5/325MG TABLET (HYDROcodone/ACETAMINOPHEN) PEG (20:35)
[2017-09-04] MEDS: SLF 3 ML SYR IV ×3 (06:00→21:52)
[2017-09-04] MEDS: ALBUTEROL SULFATE 2.5 MG/0.5 ML INH NEB SOLN NEB ×3 (07:13→23:24)
[2017-09-04] MEDS: GABAPENTIN 100 MG CAP PO ×3 (09:16→20:12)
[2017-09-04] MEDS: DOCUSATE SOD LIQ 100MG/10ML UDC GT ×2 (09:16→20:12)
[2017-09-04] MEDS: MORPHINE 4 MG/ML 1ML VIAL/SYRINGE (J2270) IV ×7 (09:17→22:23)
[2017-09-04] MEDS: NORCO, ANEXSIA 5/325MG TABLET (HYDROcodone/ACETAMINOPHEN) PEG (14:17)
[2017-09-04] MEDS: ACETAMINOPHEN 325 MG/10.15 ML UDC GT (18:32)
[2017-09-04] MEDS: ALPRAZolam 0.5 MG TAB PEG (20:12)
[2017-09-05] MEDS: MORPHINE 4 MG/ML 1ML VIAL/SYRINGE (J2270) IV ×2 (05:26→10:03)
[2017-09-05] MEDS: SLF 3 ML SYR IV (05:26)
[2017-09-05] MEDS: NORCO, ANEXSIA 5/325MG TABLET (HYDROcodone/ACETAMINOPHEN) PEG (06:58)
[2017-09-05] MEDS: ALBUTEROL SULFATE 2.5 MG/0.5 ML INH NEB SOLN NEB (07:31)
[2017-09-05] MEDS: DOCUSATE SOD LIQ 100MG/10ML UDC GT (09:00)
[2017-09-05] MEDS: GABAPENTIN 100 MG CAP PO (10:03)
[2017-09-05] MEDS ORDERED: MORPHINE 4 MG/ML 1ML VIAL/SYRINGE (J2270) IV ×2 (10:15)
[2017-09-05] MEDS ORDERED: LORazepam 2 MG/ML VIAL (J2060) IV (10:15)
[2017-09-05] MEDS: LORazepam 2 MG/ML VIAL (J2060) IV (10:16)
[2017-09-05] MEDS: ALPRAZolam 0.5 MG TAB PEG (10:36)
== END 2017-09-05 11:10 | disposition expired | DRG 870 ==
LOC: M PCU 08-24 06:00 → M ED 13:28 → M ED INP 17:31 → M ICU 19:50
PROC: 5A1955Z Respiratory Ventilation, Greater than 96 Consecutive Hours (ICD-10-PCS; principal; 2017-07-27)
PROC: 30233N1 Transfusion of Nonautologous Red Blood Cells into Peripheral Vein, Percutaneous Approach (ICD-10-PCS; 2017-07-27)
PROC: 02HV33Z Insertion of Infusion Device into Superior Vena Cava, Percutaneous Approach (ICD-10-PCS; 2017-08-10)
PROC: 0D20XUZ Change Feeding Device in Upper Intestinal Tract, External Approach (ICD-10-PCS; 2017-08-15)
DX: A41.9 Sepsis, unspecified organism (principal); E43 Unspecified severe protein-calorie malnutrition; J15.1 Pneumonia due to Pseudomonas; J15.6 Pneumonia due to other Gram-negative bacteria; R65.21 Severe sepsis with septic shock; J69.0 Pneumonitis due to inhalation of food and vomit; J95.851 Ventilator associated pneumonia; J96.10 Chronic respiratory failure, unspecified whether with hypoxia or hypercapnia; G12.21 Amyotrophic lateral sclerosis; N17.9 Acute kidney failure, unspecified; N39.0 Urinary tract infection, site not specified; K94.23 Gastrostomy malfunction; E87.0 Hyperosmolality and hypernatremia; I50.32 Chronic diastolic (congestive) heart failure; I13.0 Hypertensive heart and chronic kidney disease with heart failure and stage 1 through stage 4 chronic kidney disease, or unspecified chronic kidney disease; E11.40 Type 2 diabetes mellitus with diabetic neuropathy, unspecified; F41.9 Anxiety disorder, unspecified; E03.9 Hypothyroidism, unspecified; M10.9 Gout, unspecified; I25.10 Atherosclerotic heart disease of native coronary artery without angina pectoris; Z95.2 Presence of prosthetic heart valve; Z51.5 Encounter for palliative care; R91.1 Solitary pulmonary nodule; Z79.899 Other long term (current) drug therapy; Z79.4 Long term (current) use of insulin; Z88.8 Allergy status to other drugs, medicaments and biological substances; Z79.82 Long term (current) use of aspirin; J44.9 Chronic obstructive pulmonary disease, unspecified; E78.5 Hyperlipidemia, unspecified; K21.9 Gastro-esophageal reflux disease without esophagitis; F32.9 Major depressive disorder, single episode, unspecified; N40.0 Benign prostatic hyperplasia without lower urinary tract symptoms; Z87.891 Personal history of nicotine dependence; D63.8 Anemia in other chronic diseases classified elsewhere; E87.5 Hyperkalemia; E83.52 Hypercalcemia; N18.9 Chronic kidney disease, unspecified; D50.9 Iron deficiency anemia, unspecified; K59.00 Constipation, unspecified; K80.20 Calculus of gallbladder without cholecystitis without obstruction